=== PATIENT | male | born 1965 | race Caucasian/White ===

== ENCOUNTER 2019-05-03 20:59 | Inpatient (IN) | payer OTHER ==
[2019-05-03] MEDS ORDERED: VANCOMYCIN 1 GM/VIAL ONE (21:39)
[2019-05-03] MEDS ORDERED: NA CHLORIDE 0.9% 500 ML ONE (21:39)
[2019-05-03] MEDS ORDERED: PIPER/TAZO/NS 3.375gm 3.375 GM/100 ML BAG ONE (21:39)
[2019-05-03] MEDS ORDERED: NA CHLORIDE 0.9% 2,000 ML ONE (21:58)
[2019-05-03 22:02] LABS: Absolute Monocytes 0.8 K/uL (0.1-1.3); Absolute Neutrophil 7.3 K/uL (1.8-8.0); Basophils % 0.5 % (0-1.3); Eosinophils % 0.4 % (0-4.4); Lymphocytes % 11.1 % (15.3-44.8); MPV 12.1 fL (7.6-11.3); Monocytes % 9.1 % (3.3-12.3); RBC Red Blood Cell Count 3.96 M/uL (4.33-5.43)
[2019-05-03 22:07] LABS: Albumin 1.5 g/dL (3.4-5.0); Bilirubin Direct 0.9 mg/dL (0-0.2); Bilirubin Total 1.3 mg/dL (0.2-1.0); C-Reactive Protein 46.5 mg/L (<3.00); CKMB Creatine Kinase MB 3.2 ng/mL (0.3-3.6); Potassium 3.7 mmol/L (3.5-5.1); Protein, Total 5.7 g/dL (6.4-8.2); Troponin (Emerg Dept Use Only) 0.1 ng/mL (0.0-0.045)
[2019-05-03 22:11] LABS: Protime INR 1.44
--- NOTE | 2019-05-03 22:50 | RAD REPORT ---
EXAM DESCRIPTION: USExtremity Venous Uni Ltd05/03/2019 10:33 pm CLINICAL HISTORY: Right leg swelling COMPARISON: None. FINDINGS: Right common femoral, superficial femoral, popliteal and right posterior tibial veins are compressible and demonstrate augmentation. Doppler demonstrates good flow. IMPRESSION: No evidence of deep venous thrombosis involving the right lower extremity.
--- NOTE | 2019-05-03 23:34 | EDPHYS ---
Physician Documentation [facility] Name: Bob Santana Age: 53 yrs Sex: Male : 1965 Arrival Date: 05/03/2019 Time: 21:11 Bed 8 Private MD: ED Physician Harry Day HPI: 05/03 23:20 This 53 yrs old Male presents to ER via EMS with complaints of Leg Swelling. tw4 23:20 The patient presents with pain, that is acute, swelling. The complaints affect the tw4 right quadriceps, right knee, right norman, anterior aspect of right ankle and dorsum of right foot. Context: The problem was sustained at home, resulted from an unknown cause. Onset: The symptoms/episode began/occurred 4 day(s) ago. Modifying factors: The symptoms are alleviated by remaining still, the symptoms are aggravated by movement. Associated signs and symptoms: The patient has no apparent associated signs or symptoms. Treatment prior to arrival includes: no previous treatment. Severity of symptoms: At their worst the symptoms were moderate, in the emergency department the symptoms are unchanged. The patient has not experienced similar symptoms in the past. Historical: - Allergies: 21:38 No Known Allergies; lp1 - Home Meds: 21:38 furosemide 40 mg Oral tab 1 tab 2 times per day [Active]; carvedilol 3.125 mg oral tab lp1 1 tab 2 times per day [Active]; spironolactone 25 mg Oral tab 1 tab once daily [Active]; buspirone 10 mg Oral tab 1 tab 3 times per day [Active]; lisinopril 5 mg Oral tab 1 tab once daily [Active]; digoxin 250 mcg Oral tab 1 tab once daily [Active]; - PMHx: 21:38 Hypertension; CHF; COPD; lp1 - PSHx: 21:38 None; lp1 - Immunization history:: Adult Immunizations unknown. - Social history:: Smoking status: Patient uses tobacco products, smokes one-half pack cigarettes per day. - Ebola Screening: : No symptoms or risks identified at this time. ROS: 23:20 Constitutional: Negative for fever, chills, and weight loss, Eyes: Negative for injury, tw4 pain, redness, and discharge, Cardiovascular: Negative for chest pain, palpitations, and edema, Respiratory: Negative for shortness of breath, cough, wheezing, and pleuritic chest pain, Abdomen/GI: Negative for abdominal pain, nausea, vomiting, diarrhea, and constipation, Back: Negative for injury and pain. 23:20 Neuro: Negative for headache, weakness, numbness, tingling, and seizure, Psych: Negative for depression, anxiety, suicide ideation, homicidal ideation, and hallucinations. 23:20 MS/extremity: Positive for erythema, pain, swelling, tenderness. Exam: 23:20 Musculoskeletal/extremity: Extremities: erythema, pain, swelling, tenderness. tw4 05/04 02:28 Constitutional: This is a well developed, well nourished patient who is awake, alert, tw4 and in no acute distress. Head/Face: Normocephalic, atraumatic. Chest/axilla: Normal chest wall appearance and motion. Nontender with no deformity. No lesions are appreciated. Cardiovascular: Regular rate and rhythm with a normal S1 and S2. No gallops, murmurs, or rubs. Normal PMI, no JVD. No pulse deficits. Respiratory: Lungs have equal breath sounds bilaterally, clear to auscultation and percussion. No rales, rhonchi or wheezes noted. No increased work of breathing, no retractions or nasal flaring. Abdomen/GI: Soft, non-tender, with normal bowel sounds. No distension or tympany. No guarding or rebound. No evidence of tenderness throughout. Back: No spinal tenderness. No costovertebral tenderness. Full range of motion. Neuro: Awake and alert, GCS 15, oriented to person, place, time, and situation. Cranial nerves II-XII grossly intact. Motor strength 5/5 in all extremities. Sensory grossly intact. Cerebellar exam normal. Normal gait. Psych: Awake, alert, with orientation to person, place and time. Behavior, mood, and affect are within normal limits. Skin: cellulitis, that is severe, on the posterior aspect of right knee, right calf, right Achilles, medial aspect of right thigh, medial aspect of right knee, medial aspect of right calf, right quadriceps, right knee, right norman, anterior aspect of right ankle and dorsum of right foot. Vital Signs: 05/03 21:00 BP 70 / 52; Pulse 82; Resp 24; Temp 98.2(O); Pulse Ox 96% on R/A; Weight 99.79 kg (R); lp1 Height 5 ft. 10 in. (177.80 cm); Pain 10/10; 21:30 BP 79 / 55; Pulse 78; Resp 20; Pulse Ox 97% on R/A; aa1 22:00 BP 84 / 41; Pulse 74; Resp 20; Pulse Ox 98% on R/A; aa1 22:30 BP 95 / 64; Pulse 77; Resp 22; Pulse Ox 97% on R/A; aa1 23:29 BP 95 / 61; Pulse 74; Resp 20; Pulse Ox 100% on R/A; Pain 8/10; aa1 05/04 00:11 BP 101 / 57; Pulse 86; Resp 22; Temp 97.7; Pulse Ox 98% on R/A; mw2 01:07 BP 99 / 55; Pulse 88; Resp 20; Pulse Ox 99% on R/A; aa1 01:58 BP 98 / 61; Pulse 82; Resp 22; Pulse Ox 97% on R/A; aa1 03:00 BP 101 / 52; Pulse 90; Resp 20; Temp 99.0; Pulse Ox 98% on R/A; Pain 7/10; aa1 05/03 21:00 Body Mass Index 31.57 (99.79 kg, 177.80 cm) lp1 MDM: 05/03 21:15 Patient medically screened. tw4 23:20 Differential diagnosis: closed fracture, abrasion, DVT, NECROTIZING FASCIITIS. Data tw4 reviewed: vital signs, nurses notes. Data interpreted: monitoring engineer: rhythm is normal sinus rhythm, Pulse oximetry: Interpretation: normal. Counseling: I had a detailed discussion with the patient and/or guardian regarding: the historical points, exam findings, and any diagnostic results supporting the discharge/admit diagnosis. Physician consultation: Amy Nowak MD was contacted at 11:30, regarding admission, to the telemetry unit. patient's condition, and will see patient in inpatient room. 05/03 21:14 Order name: C-Reactive Protein; Complete Time: 22:18 tw4 05/03 22:18 Interpretation: Abnormal: C-REACTIVE PROT 46.50. tw4 05/03 21:14 Order name: Sed Rate tw4 05/03 21:14 Order name: Basic Metabolic Panel tw4 05/03 21:14 Order name: Blood Culture Adult (2) tw4 05/03 21:14 Order name: CBC with Diff tw4 05/03 22:18 Interpretation: Normal except: RBC 3.96; HGB 12.4; HCT 37.0; PLT 126; RDW 16.0; MPV tw4 12.1; LYM% 11.1; KIMBERLEE% 78.9. 05/03 21:14 Order name: Ckmb; Complete Time: 22:16 tw 05/03 22:16 Interpretation: Within normal limits: CKMB 3.2. tw4 05/03 21:14 Order name: CPK tw 05/03 21:14 Order name: Lactate; Complete Time: 22:16 tw 05/03 22:16 Interpretation: Within normal limits: LAC 1.6. tw 05/03 21:14 Order name: LFT's [facility] 05/03 21:14 Order name: Lipase; Complete Time: 22:16 [facility] 05/03 22:16 Interpretation: Within normal limits: LIP 188. [facility] 05/03 21:14 Order name: Procalcitonin; Complete Time: 22:15 [facility] 05/03 22:15 Interpretation: Abnormal: Procalcitonin 3.23. tw 05/03 21:14 Order name: Protime (+inr); Complete Time: 22:16 [facility] 05/03 22:16 Interpretation: Normal except: PT 16.7. 05/03 21:14 Order name: Ptt, Activated; Complete Time: 22:16 [facility] 05/03 22:16 Interpretation: Within normal limits: PTT 29.5. [facility] 05/03 21:14 Order name: Troponin (emerg Dept Use Only); Complete Time: 22:16 [facility] 05/03 22:16 Interpretation: Normal except: TROPED 0.10. [facility] 05/03 21:14 Order name: Urine Microscopic Only tw4 05/04 00:47 Order name: Urine Dipstick--Ancillary (enter results) ar5 05/04 01:35 Order name: Urine Culture EDMS 05/04 02:14 Order name: CBC with Automated Diff EDMS 05/04 02:14 Order name: Comprehensive Metabolic Panel EDMS 05/04 02:14 Order name: Cortisol EDMS 05/04 02:14 Order name: Magnesium EDMS 05/04 02:14 Order name: Phosphorus EDMS 05/04 02:14 Order name: Protime (+INR) EDMS 05/04 02:14 Order name: PTT, Activated Partial Thromb EDMS 05/04 02:14 Order name: Retic Count EDMS 05/04 02:14 Order name: Vitamin B12 Level EDMS 05/04 02:14 Order name: Creatine Phosphokinase EDDC 05/04 02:14 Order name: Folic Acid, (Folate) EDDC 05/04 02:14 Order name: T4 Free EDDC 05/04 02:14 Order name: Troponin I EDDC 05/03 21:14 Order name: Chest Single View XRAY tw4 05/03 21:14 Order name: Accucheck; Complete Time: 21:40 tw4 05/03 21:14 Order name: Cardiac monitoring; Complete Time: 21:34 tw4 05/03 21:14 Order name: EKG - Nurse/Tech; Complete Time: 22:24 tw4 05/03 21:14 Order name: IV Saline Lock - Large Bore; Complete Time: 22:25 tw4 05/03 21:14 Order name: Labs collected and sent; Complete Time: 21:34 tw4 05/03 21:14 Order name: O2 Per Protocol; Complete Time: 21:34 tw4 05/03 21:14 Order name: O2 Sat Monitoring; Complete Time: 21:34 tw4 05/03 21:14 Order name: Urine Dipstick-Ancillary (obtain specimen); Complete Time: 02:47 tw4 05/03 21:15 Order name: Ankle Right 2 View XRAY tw4 05/03 21:15 Order name: Tib Fib Right XRAY tw4 05/03 21:57 Order name: CT Chest For PE Angio tw4 05/03 21:57 Order name: Extremity Venous Uni Ltd US tw4 05/03 22:09 Order name: Lower Ext Wo Con W/ Mpr EDDC 05/04 02:08 Order name: CONS Pharmacy Consult EDDC 05/04 02:08 Order name: CONS Physician Consult EDDC 05/04 02:08 Order name: Consistent Carb (ADA) 1800 Leopold[address] EDMS EC:20 Rate is 78 beats/min. Rhythm is regular. QRS [place] is Normal. IA interval is normal. QRS tw4 interval is normal. QT interval is normal. No Q waves. T waves are Flattened in leads V3, V5, V6. No ST changes noted. Clinical impression: RBBB. Interpreted by me. Reviewed by me. Administered Medications: 22:00 Drug: NS 0.9% (30 ml/kg) 30 ml/kg Route: IV; Rate: bolus; Site: right upper arm; lp1 22:00 Drug: Zosyn 3.375 grams Route: IVPB; Infused Over: 60 mins; Site: right upper arm; lp1 23:00 Follow up: IV Status: Completed infusion aa1 23:17 Follow up: IV Intake: 100ml aa 23:18 Drug: NS 0.9% (30 ml/kg) 30 ml/kg Route: IV; Rate: bolus; Site: right upper arm; aa1 05/04 00:00 Follow up: IV Status: Completed infusion; IV Intake: 2000ml aa 05/03 23:18 Drug: vancoMYCIN 2 grams Route: IVPB; Rate: calculated rate; Site: right upper arm; aa1 05/04 01:18 Follow up: IV Status: Completed infusion; IV Intake: 500ml [facility] Point of Care Testing: Blood Glucose: 05/03 21:34 Blood Glucose: 204 mg/dL; lp1 Ranges: Critical Glucose Levels:Adult <50 mg/dl or >400 mg/dl <40 mg/dl or >180 mg/dl Disposition: 05/03/19 23:33 Hospitalization ordered by Amy Nowak for Inpatient Admission. Preliminary diagnosis are Cellulitis of right lower limb, Other sepsis. - Bed requested for Intensive Care Unit. - Status is Inpatient Admission. ar5 - Condition is Fair. - Problem is new. - Symptoms have improved. UTI on Admission? No Critical care time excluding procedures: 05/04 02:28 Critical care time: Bedside Care: 30 minutes, Consultation: 10 minutes. Total time: 40 tw4 minutes Signatures: Dispatcher [employer] EDMS Rachel Oquendo RN RN Riya Baca RN RN aa1 Qi Polo RN RN lp1 Harry Day MD MD tw4 Edda Gomez ar5 Corrections: (The following items were deleted from the chart) 02:12 05/03 23:33 Hospitalization Ordered by Amy Nowak MD for Inpatient Admission. alonzo Preliminary diagnosis is Cellulitis of right lower limb; Other sepsis. Bed requested for Telemetry/MedSurg (Inpatient). Status is Inpatient Admission. Condition is Fair. Problem is new. Symptoms have improved. UTI on Admission? No. tw4 05/04 02:30 05/03 23:20 Constitutional: This is a well developed, well nourished patient who is tw4 awake, alert, and in no acute distress. Head/Face: Normocephalic, atraumatic. Chest/axilla: Normal chest wall appearance and motion. Nontender with no deformity. No lesions are appreciated. Cardiovascular: Regular rate and rhythm with a normal S1 and S2. No gallops, murmurs, or rubs. Normal PMI, no JVD. No pulse deficits. Respiratory: Lungs have equal breath sounds bilaterally, clear to auscultation and percussion. No rales, rhonchi or wheezes noted. No increased work of breathing, no retractions or nasal flaring. Abdomen/GI: Soft, non-tender, with normal bowel sounds. No distension or tympany. No guarding or rebound. No evidence of tenderness throughout. Skin: Warm, dry with normal turgor. Normal color with no rashes, no lesions, and no evidence of cellulitis. Neuro: Awake and alert, GCS 15, oriented to person, place, time, and situation. Cranial nerves II-XII grossly intact. Motor strength 5/5 in all extremities. Sensory grossly intact. Cerebellar exam normal. Normal gait. tw4 05/04 03:28 02:12 05/03/2019 23:33 Hospitalization Ordered by Amy Nowak MD for Inpatient ar5 Admission. Preliminary diagnosis is Cellulitis of right lower limb; Other sepsis. Bed requested for Intensive Care Unit. Status is Inpatient Admission. Condition is Fair. Problem is new. Symptoms have improved. UTI on Admission? No. mw
--- NOTE | 2019-05-03 23:34 | ER ---
Nurse's Notes [facility] Name: Bob Santana Age: 53 yrs Sex: Male : 1965 Arrival Date: 05/03/2019 Time: 21:11 Bed 8 Private MD: Diagnosis: Cellulitis of right lower limb;Other sepsis Presentation: 05/03 21:00 Presenting complaint: EMS states: Patient was working outside 4 days ago and may have lp1 injured right leg; Pain, redness, swelling to right leg extending to upper thigh. 21:00 Method Of Arrival: EMS: [facility] lp1 21:00 Transition of care: patient was not received from another setting of care. Onset of lp1 symptoms. Risk Assessment: Do you want to hurt yourself or someone else? Patient reports no desire to harm self or others. Initial Sepsis Screen: Does the patient meet any 2 criteria? RR > 20 per min. Systolic BP < 90 mmHg. Mean Arterial Pressure (MAP) < 65. Does the patient have a suspected source of infection? Yes: Skin breakdown/wound. Care prior to arrival: None. 21:00 Acuity: KISHAN 1 lp1 Historical: - Allergies: 21:38 No Known Allergies; lp1 - Home Meds: 21:38 furosemide 40 mg Oral tab 1 tab 2 times per day [Active]; carvedilol 3.125 mg oral tab lp1 1 tab 2 times per day [Active]; spironolactone 25 mg Oral tab 1 tab once daily [Active]; buspirone 10 mg Oral tab 1 tab 3 times per day [Active]; lisinopril 5 mg Oral tab 1 tab once daily [Active]; digoxin 250 mcg Oral tab 1 tab once daily [Active]; - PMHx: 21:38 Hypertension; CHF; COPD; lp1 - PSHx: 21:38 None; lp1 - Immunization history:: Adult Immunizations unknown. - Social history:: Smoking status: Patient uses tobacco products, smokes one-half pack cigarettes per day. - Ebola Screening: : No symptoms or risks identified at this time. Screenin:38 Abuse screen: Denies threats or abuse. Denies injuries from another. Nutritional lp1 screening: No deficits noted. Tuberculosis screening: No symptoms or risk factors identified. Fall Risk Total Metzger Fall Scale indicates High Risk Score (45 or more points). Fall prevention measures have been instituted. Side Rails Up X 2 As available patient and family educated on Fall Prevention Program and Strategies. Assessment: 21:20 General: Appears in no apparent distress. uncomfortable, Behavior is calm, cooperative, aa1 appropriate for age. Pain: Complains of pain in right leg Pain began 2-3 days ago. Is continuous. Neuro: Level of Consciousness is awake, alert, obeys commands, Oriented to person, place, time, situation. Cardiovascular: Heart tones S1 S2 present Edema is 4+ to right midcalf, right ankle, right foot and right toes pitting to right midcalf, right ankle, right foot and right toes Rhythm is regular. Respiratory: Airway is patent Respiratory effort is even, unlabored, Respiratory pattern is regular, symmetrical. GI: No signs and/or symptoms were reported involving the gastrointestinal system. : No signs and/or symptoms were reported regarding the genitourinary system. EENT: No signs and/or symptoms were reported regarding the EENT system. Derm: Skin is intact, is healthy with good turgor, Skin is pink, warm \T\ dry. redness noted to RLE. Musculoskeletal: Circulation, motion, and sensation intact. Capillary refill < 3 seconds, Range of motion: limited in right knee and right ankle. 22:31 Reassessment: Patient appears in no apparent distress at this time. Patient and/or aa1 family updated on plan of care and expected duration. Pain level reassessed. Patient is alert, oriented x 3, equal unlabored respirations, skin warm/dry/pink. Pt taken to CT at this time. 23:21 Reassessment: Patient appears in no apparent distress at this time. Patient and/or aa1 family updated on plan of care and expected duration. Pain level reassessed. Patient is alert, oriented x 3, equal unlabored respirations, skin warm/dry/pink. Pt awaiting CT results. 05/04 00:11 Reassessment: Patient appears in no apparent distress at this time. Patient and/or aa1 family updated on plan of care and expected duration. Pain level reassessed. Patient is alert, oriented x 3, equal unlabored respirations, skin warm/dry/pink. Family at bedside. Awaiting bed assignment. 01:58 Reassessment: Patient appears in no apparent distress at this time. Patient and/or aa1 family updated on plan of care and expected duration. Pain level reassessed. Patient is alert, oriented x 3, equal unlabored respirations, skin warm/dry/pink. Pt still awaiting bed assignment. Vital Signs: 05/03 21:00 BP 70 / 52; Pulse 82; Resp 24; Temp 98.2(O); Pulse Ox 96% on R/A; Weight 99.79 kg (R); lp1 Height 5 ft. 10 in. (177.80 cm); Pain 10/10; 21:30 BP 79 / 55; Pulse 78; Resp 20; Pulse Ox 97% on R/A; aa1 22:00 BP 84 / 41; Pulse 74; Resp 20; Pulse Ox 98% on R/A; aa1 22:30 BP 95 / 64; Pulse 77; Resp 22; Pulse Ox 97% on R/A; aa1 23:29 BP 95 / 61; Pulse 74; Resp 20; Pulse Ox 100% on R/A; Pain 8/10; aa1 05/04 00:11 BP 101 / 57; Pulse 86; Resp 22; Temp 97.7; Pulse Ox 98% on R/A; mw2 01:07 BP 99 / 55; Pulse 88; Resp 20; Pulse Ox 99% on R/A; aa1 01:58 BP 98 / 61; Pulse 82; Resp 22; Pulse Ox 97% on R/A; aa1 03:00 BP 101 / 52; Pulse 90; Resp 20; Temp 99.0; Pulse Ox 98% on R/A; Pain 7/10; aa1 05/03 21:00 Body Mass Index 31.57 (99.79 kg, 177.80 cm) lp1 ED Course: 05/03 21:11 Patient arrived in ED. tw4 21:13 Initial lab(s) drawn, by me, sent to lab. First set of blood cultures drawn by me. aa1 Missed attempt(s): 20 gauge in right EJ. Bleeding controlled, band aid applied, catheter tip intact. 21:15 Harry Day MD is Attending Physician. tw4 21:28 Second set of blood cultures drawn. Missed attempt(s): 20 gauge in left EJ. Bleeding aa1 controlled, band aid applied, catheter tip intact. 21:33 Triage completed. lp1 21:33 Riya Baca, RN is Primary Nurse. aa1 21:33 Arm band placed on right wrist. lp1 21:38 Patient has correct armband on for positive identification. Placed in gown. Bed in low lp1 position. digital advertising analyst on. Pulse ox on. NIBP on. 21:48 Chest Single View XRAY In Process Unspecified. EDMS 21:48 Ankle Right 2 View XRAY In Process Unspecified. EDMS 21:48 Tib Fib Right XRAY In Process Unspecified. EDMS 21:55 Lab(s) recollected, by me, sent to lab. Second set of blood cultures drawn by me. fc Inserted 18 gauge 10 cm midline to right upper brachial vein on first attempt. Line with good blood return and flushes well. 22:01 Radiology exam delayed due to lab results not completed at this time. (BUN/Creatinine). vm2 22:31 Ultrasound completed. Patient tolerated well. Notified ED Physician gayle. sg3 22:35 Extremity Venous Uni Ltd US In Process Unspecified. EDMS 23:07 CT Chest For PE Angio In Process Unspecified. EDMS 23:07 Lower Ext Wo Con W/ Mpr In Process Unspecified. EDMS 23:31 Amy Nowak MD is Hospitalizing Provider. tw4 06/08 02:21 Diet: Patient given juice. Tolerated well. aa1 02:21 No provider procedures requiring assistance completed. Patient admitted, IV remains in aa1 place. Administered Medications: 05/03 22:00 Drug: NS 0.9% (30 ml/kg) 30 ml/kg Route: IV; Rate: bolus; Site: right upper arm; lp1 22:00 Drug: Zosyn 3.375 grams Route: IVPB; Infused Over: 60 mins; Site: right upper arm; lp1 23:00 Follow up: IV Status: Completed infusion aa1 23:17 Follow up: IV Intake: 100ml aa1 23:18 Drug: NS 0.9% (30 ml/kg) 30 ml/kg Route: IV; Rate: bolus; Site: right upper arm; 1 05/04 00:00 Follow up: IV Status: Completed infusion; IV Intake: 2000ml aa 05/03 23:18 Drug: vancoMYCIN 2 grams Route: IVPB; Rate: calculated rate; Site: right upper arm; aa1 05/04 01:18 Follow up: IV Status: Completed infusion; IV Intake: 500ml aa1 Point of Care Testing: Blood Glucose: 05/03 21:34 Blood Glucose: 204 mg/dL; lp1 Ranges: Intake: 23:17 IV: 100ml; Total: 100ml. aa1 05/04 00:00 IV: 2000ml; Total: 2100ml. aa1 01:18 IV: 500ml; Total: 2600ml. aa1 Outcome: 05/03 23:33 Decision to Hospitalize by Provider. 4 05/04 03:28 Patient left the ED. ar5 Signatures: Dispatcher [employer] EDMS Riya Baca RN RN aa1 Brigid Osei RN RN Qi Polo RN RN lp1 Carmelita Acevedo [facility] Dianna Magdaleno 3 Harry Day MD MD 4 Timo Monteiro mw2 Edda Gomez ar5 Corrections: (The following items were deleted from the chart) 01:04 00:11 BP 101 / 57; Pulse 86bpm; Resp 22bpm; Pulse Ox 98% RA; aa1 mw2 03:14 01:00 IV Status: Completed infusion; IV Intake: 2000ml aa1 aa1
[2019-05-04 01:29] LABS: Urine Culture Reflex Order REFLEXED; Urine RBC <5 /HPF (NONE SEEN)
[2019-05-04 01:31] LABS: Urine Bacteria 20-50 /HPF (NONE SEEN)
[2019-05-04 01:36] LABS: Urine Blood TRACE (NEG); Urine Glucose NEGATIVE (NEG); Urine Protein 1+ (NEG); Urine pH 6.5 (5.0-7.0)
[2019-05-04] MEDS ORDERED: ONDANSETRON 4 MG/2 ML VIAL IV PRN (02:02)
[2019-05-04] MEDS ORDERED: ACETAMINOPHEN 500 MG TAB PO PRN (02:02)
[2019-05-04] MEDS ORDERED: ALBUMIN HUMAN 25% 100 ML IV ONE ×2 (02:12→05:42)
[2019-05-04] MEDS: NA BICARB IV SCH ×4 (03:00→13:30)
[2019-05-04] MEDS ORDERED: Levofloxacin 750mg IV 750 MG/150 ML BAG IV SCH (03:00)
[2019-05-04] MEDS: D5 NS IV SCH ×4 (03:00→13:30)
[2019-05-04] MEDS ORDERED: D5 0.45 NS 1,000 ML IV ONE (04:36)
[2019-05-04] MEDS: FENTANYL CITR 100 MCG/2 ML IV PRN ×2 (05:56→20:05)
[2019-05-04 06:22] LABS: Absolute Lymphocytes (CBC) 1.1 K/uL (0.7-4.9); Absolute Monocytes 1.1 K/uL (0.1-1.3); Absolute Neutrophil 7.2 K/uL (1.8-8.0); Basophils % 0.4 % (0-1.3); Eosinophils % 0.9 % (0-4.4); Hematocrit 34.4 % (39.6-49.0); Lymphocytes % 11.2 % (15.3-44.8); MPV 11.2 fL (7.6-11.3); Monocytes % 11.7 % (3.3-12.3); RBC Red Blood Cell Count 3.66 M/uL (4.33-5.43)
[2019-05-04 06:24] LABS: Protime INR 1.6
[2019-05-04 07:11] LABS: Albumin 1.7 g/dL (3.4-5.0); Bilirubin Total 1.6 mg/dL (0.2-1.0); Folic Acid, (Folate) 17.1 ng/mL (3.1-17.5); Magnesium 1.9 mg/dL (1.8-2.4); Phosphorus 2.1 mg/dL (2.5-4.9); Protein, Total 5.6 g/dL (6.4-8.2); Troponin I 0.09 ng/mL (0.0-0.045)
[2019-05-04 07:19] LABS: Blood Morphology Comment NOT SEEN (NOT SEEN); Platelet Estimate ADEQ
[2019-05-04] MEDS: VANCOMYCIN 1.75 GM in NA CHLORIDE 0.9% 500 ML IVPB SCH ×2 (08:36→20:05)
--- NOTE | 2019-05-04 08:38 | RAD REPORT ---
EXAM DESCRIPTION: RAD - Ankle Right 2 View - 05/03/2019 9:54 pm CLINICAL HISTORY: Right ankle pain FINDINGS: No fracture or dislocation is seen. Marked soft tissue swelling may indicate a cellulitis. No bony destructive lesions seen
--- NOTE | 2019-05-04 08:51 | P.HP ---
Certification for Inpatient Patient admitted to: Inpatient With expected LOS: >2 Midnights Patient will require the following post-hospital care: Home Health Services Practitioner: I am a practitioner with admitting privileges, knowledge of patient current condition, hospital course, and medical plan of care. Services: Services provided to patient in accordance with Admission requirements found in Title 42 Section 412.3 of the Code of Federal Regulations Patient History Date of Service: 05/04/19 Reason for admission: Aggressive right lower extremity cellulitis with septic shock History of Present Illness: Patient is a 53-year-old gentleman who comes into the hospital with a significant cellulitis of the right lower extremity. Initially on viewing the leg there was concern for compartment syndrome. However, patient had good pulses and the foot was warm and neurovascularly intact. Patient states that the right lower extremity started swelling up when he and a partner work-in in a yd which she states had a large amount of stool that had not been picked up. He says there was a lot of dust all over and a few days after cutting the ER he noted that his right leg was inflamed. Is over the next 12 hr the whole leg seems to have gotten significantly erythematous. CT was performed which did not reveal any tissue abnormality. Patient also had a Doppler which was negative for DVT. Decision was made to admit the patient to the hospital for further evaluation. In the emergency room after assessing the patient's leg and the fact that he was still having fevers and hypotensive with a blood pressure of 80/50 and a temperature of a 101 with heart rates in the 110s an elevated white blood cell count it was decided to admit the patient to the hospital with septic shock and to treat him with aggressive IV antibiotic therapy. Allergies No Known Allergies Allergy (Unverified 05/04/19 02:56) Home Medications: Buspirone HCl [Buspar] 10 mg PO TID 05/04/19 Carvedilol 3.125 mg PO DAILY 05/04/19 Digoxin [Lanoxin] 0.25 mg PO DAILY 05/04/19 Furosemide 40 mg PO DAILY 05/04/19 Lisinopril [Prinivil] 5 mg PO DAILY 05/04/19 Spironolactone [Aldactone] 25 mg PO DAILY 05/04/19 - Past Medical/Surgical History Has patient received pneumonia vaccine in the past: Yes Diabetic: No -: HTN -: CHF -: COPD Past Surgical History: Patient denies surgical history - Family History Mother History Unknown: Yes Medical History: Other (see notes) Notes: epilepsy - Social History Smoking Status: Current every day smoker Alcohol use: No CD- Drugs: No Caffeine use: Yes Place of Residence: Home Review of Systems 10-point ROS is otherwise unremarkable Physical Examination - Vital Signs Temperature: 97.5 F Blood Pressure: 103/57 Pulse: 90 Respirations: 20 Pulse Ox (%): 99 - Physical Exam General: Alert, In no apparent distress, Oriented x3 HEENT: Atraumatic, PERRLA, Mucous membr. moist/pink, EOMI, Sclerae nonicteric Neck: Supple, 2+ carotid pulse no bruit, No LAD, Without JVD or thyroid abnormality Respiratory: Clear to auscultation bilaterally, Normal air movement Cardiovascular: Regular rate/rhythm, Normal S1 S2, No murmurs Gastrointestinal: Normal bowel sounds, Soft and benign, Non-distended, No tenderness Musculoskeletal: No clubbing, No swelling, No tenderness Integumentary: Skin breakdown, Skin lesion, Tenderness/swelling, Erythema, Warmth Neurological: Normal gait, Normal speech, Normal strength at 5/5 x4 extr, Normal tone, Sensation intact, Cranial nerves 3-12 intact, Normal affect Lymphatics: No axilla or inguinal lymphadenopathy - Studies Laboratory Data (last 24 hrs) 05/03/19 21:55: PT 16.7 H, INR 1.44, APTT 29.5 05/03/19 21:13: WBC 9.3, Hgb 12.4 L, Hct 37.0 L, Plt Count 126 L 05/03/19 21:13: Sodium 134 L, Potassium 3.7, BUN 24 H, Creatinine 1.03, Glucose 186 H, Total Bilirubin 1.3 H, AST 90 H, ALT 66, Alkaline Phosphatase 71, Lipase 188 Assessment & Plan - Problems (Diagnosis) (1) Cellulitis of leg, right Current Visit: Yes Status: Acute (2) Septic shock Current Visit: Yes Status: Acute (3) H/O: hypertension Current Visit: Yes Status: Acute (4) DM2 (diabetes mellitus, type 2) Current Visit: Yes Status: Acute - Plan Plan: 1. Continue with IV antibiotic 2. Continue with local wound care 3. Surgical consultation appreciated; neurovascular checks every 4hrs; 4. Gentle IV hydration 5. Monitor CBC 6. Strict blood sugar monitoring 7. Pain control 8. GI and DVT prophylaxis Discharge Plan: Home Plan to discharge in: Greater than 2 days - Advance Directives Does patient have a Living Will: No Does patient have a Durable POA for Healthcare: No - Code Status/Comfort Care Code Status Assessed: Yes Code Status: Full Code Critical Care: Yes Time Spent Managing PTS Care (In Minutes): 55
[2019-05-04] MEDS ORDERED: ENOXAPARIN 40 MG/0.4 ML SQ SCH (09:00)
[2019-05-04] MEDS ORDERED: CLINDAMYCIN INJ 900 MG in NA CHLORIDE 0.9% 50 ML IV SCH (09:00)
--- NOTE | 2019-05-04 09:01 | EKG ---
Test Date: 2019-05-03 Test Time: 21:42:35 [employer]: CHANTALE MEASUREMENT RESULTS: Intervals: Rate: 78 WV: 188 QRSD: 186 QT: 476 QTc: 542 Commodore: P: 48 WV: 188 QRS: -79 T: 103 INTERPRETIVE STATEMENTS: Normal sinus rhythm Possible Left atrial enlargement Right bundle branch block Left anterior fascicular block Bifascicular block Septal infarct, age undetermined T wave abnormality, consider lateral ischemia Abnormal ECG No previous ECG available for comparison Electronically Signed On 05-04-19 09:00:31 CDT by Shane Quijano
[2019-05-04] MEDS ORDERED: ALBUTEROL INHALER 60 PUFF/8 GM IH PRN (09:30)
[2019-05-04] MEDS: DOXYCYCLINE 100 MG in NA CHLORIDE 0.9% 100 ML IVPB SCH ×2 (12:23→20:05)
[2019-05-04] MEDS: BUSPIRONE HCL 5 MG TABLET PO SCH ×2 (14:00→20:06)
--- NOTE | 2019-05-04 14:31 | P.CNS ---
Date of Consult: 05/04/19 PC: This 53-year-old male presented to the emergency room with pain and swelling of his right lower leg for diagnosis and treatment. HPC: Patient had been out mowing yd. He has a history of chronic venous insufficiency with varicose lanes of bilaterally. He was working with a mower. Working on a yd had a lot of the grass clippings were blowing up on his legs. Apparently dominga. Feces in the vicinity. Shortly thereafter he notices leg was markedly red particularly on the right side. It had become swollen, and painful. PMH: States he may have had hepatitis in the past. Also states he has chronic heart failure PSHx: Negative SOC: No known allergy SYS REVIEW: States that he is usually in pretty good health O/E awake alert vital signs are stable, patient had been hypotensive earlier in the ER HEENT: Within normal limits, vonda Arce Chest: Chest movement equal bile has some red splotchy rash on both left and right-sided chest. Also has a pectus carnatun dear ABD: Soft LOCO: The patient has bilateral varicose staining. On the right-sided his leg is more swollen in size. There is a area redness that extends up to below the knee. There is also a rash that is not going up the posterior portion of his right leg. On examination there is no crepitus felt. There is no air in the tissue. But there is tenseness from chronic lymphedema ran overwhelmed lymphatics at the moment. DATA: CT scan shows lymphedema in the subcutaneous tissue, but no true fasciitis. No air seen in the subcutaneous tissue. Labs demonstrated a serum albumin of 1.7. IMPRESSION: This patient, they history of heart failure as well as chronic venous insufficiency to was lower limbs, a serum albumin of 1.7, and now cellulitis that extends up his right Arriaga. I do not believe the patient has fasciitis. An ultrasound done last night showed fluid in the subcutaneous tissue be no air levels. There was no sharp more markings or delineation on the fascia itself. PLAN: I will continue to observe the patient. We have requested transfer to a higher level of care. We did not have Infectious Disease, the patient may require emergent immediate surgery, and also if that is the case extensive postoperative wound care. In the meantime we are keeping him on aggressive IV antibiotic regime. He has adequate venous access at the moment. We will continue current therapy, ran keep an eye on this rash.
[2019-05-04] MEDS: Meropenem 1,000 MG in NA CHLORIDE 0.9% 100 ML IV SCH (17:08)
[2019-05-04] MEDS ORDERED: NA CHLORIDE 0.9% 1,000 ML IV SCH (18:00)
[2019-05-04] MEDS ORDERED: CARVEDILOL 3.125 MG TAB PO SCH (21:00)
[2019-05-04] MEDS ORDERED: FUROSEMIDE 40 MG TABLET PO SCH (21:00)
[2019-05-04] MEDS ORDERED: LORazepam 2 MG/ML VIAL IV STA (23:08)
[2019-05-05] MEDS: Meropenem 1,000 MG in NA CHLORIDE 0.9% 100 ML IV SCH (00:30)
[2019-05-05] MEDS ORDERED: ALBUMIN HUMAN 25% 100 ML IV ONE (00:30)
[2019-05-05] MEDS: FENTANYL CITR 100 MCG/2 ML IV PRN (03:37)
[2019-05-05] MEDS ORDERED: FUROSEMIDE 40 MG TABLET PO SCH (09:00)
[2019-05-05] MEDS ORDERED: LISINOPRIL 5 MG TAB PO SCH (09:00)
[2019-05-05] MEDS ORDERED: SPIRONOLACTONE 25 MG TABLET PO SCH (09:00)
[2019-05-05] MEDS ORDERED: DIGOXIN 0.25 MG TABLET PO SCH (09:00)
[2019-05-05] MEDS ORDERED: TIOTROPIUM 5 SPRAYS/INHALER IH SCH (09:00)
[2019-05-05] MEDS ORDERED: NICOTINE 14 MG/PAT TD SCH (09:00)
--- NOTE | 2019-05-05 11:51 | P.DS ---
Admission Date: 05/04/19 Discharge Date: 05/05/19 Disposition: TRANSFER TO [facility] Reason for Admission: Aggressive right lower extremity cellulitis with septic shock Consultations: General surgery Orthopedics - Problems (1) Septic shock Status: Acute (2) Cellulitis of leg, right Status: Acute (3) Knee effusion, right Status: Acute (4) Acute kidney injury Status: Acute (5) DM2 (diabetes mellitus, type 2) Status: Acute (6) H/O: hypertension Status: Acute (7) Chronic acquired lymphedema Status: Acute Brief History of Present Illness: Patient is a 53-year-old gentleman who comes into the hospital with a significant cellulitis of the right lower extremity. Initially on viewing the leg there was concern for compartment syndrome. However, patient had good pulses and the foot was warm and neurovascularly intact. Patient states that the right lower extremity started swelling up when he and a partner work-in in a yd which she states had a large amount of stool that had not been picked up. He says there was a lot of dust all over and a few days after cutting the ER he noted that his right leg was inflamed. Is over the next 12 hr the whole leg seems to have gotten significantly erythematous. CT was performed which did not reveal any tissue abnormality. Patient also had a Doppler which was negative for DVT. Decision was made to admit the patient to the hospital for further evaluation. In the emergency room after assessing the patient's leg and the fact that he was still having fevers and hypotensive with a blood pressure of 80/50 and a temperature of a 101 with heart rates in the 110s an elevated white blood cell count it was decided to admit the patient to the hospital with septic shock and to treat him with aggressive IV antibiotic therapy. Hospital Course: Overall during the hospital stay patient remained stable Patient was initially admitted to the hospital for septic shock most likely secondary to right-sided severe cellulitis of the lower extremity with concerns of necrotizing fasciitis. Patient was initially started on broad-spectrum antibiotics which included IV vancomycin clindamycin and Levaquin along with IV fluids. Patient remained hemodynamically stable initially was hypotensive with elevated temperature which did resolve after the 1st 8 hr of IV fluids and antibiotics. Patient's right lower extremity however did not show any improvement and in fact the rash was extending upwards to the groin area and to the umbilicus area along with shoulder and bilateral breast area. Rash that was extending was nonblanching giving the appearance of lymphangitis. Patient does have chronic venous stasis along with lymphedema and poor hygiene and thus there was a concern that patient cellulitis maybe secondary to necrotizing fasciitis. At that time [facility] was contacted patient was presented to them and was transferred there for further care. General surgery did evaluate the patient here in in the hospital and recommended to continue with IV antibiotics initially is general surgery did recommend the patient be transferred to higher level of care from the ER given the extent of his cellulitis and concern for necrotizing fasciitis and compartment syndrome. Patient had a CT of the leg done here in the hospital which was concerning for large knee effusion as well. Orthopedic surgeon was consulted here in the hospital. Patient was accepted at [facility] and was transferred there for further care. Vital Signs/Physical Exam: Temp Pulse Resp BP Pulse Ox 99.1 F 101 H 22 H 146/83 H 100 05/05/19 08:00 05/05/19 08:00 05/05/19 08:00 05/05/19 08:00 05/05/19 07:00 General: Alert, Mild distress Respiratory: Clear to auscultation bilaterally, Normal air movement Cardiovascular: Regular rate/rhythm, Normal S1 S2 Gastrointestinal: Normal bowel sounds, No tenderness Musculoskeletal: Swelling, Erythema, Tenderness, Warmth, Other (Right lower extremity with no improvement in the swelling increased erythema along with tenderness and warmth. With proper H discoloration along with hemorrhagic bullae noted. Patient does have and extended to the abdomen and the chest area. Redness is nonblanching.) Integumentary: No rashes Neurological: Normal speech, Normal tone, Normal affect Lymphatics: No axilla or inguinal lymphadenopathy Laboratory Data at Discharge: WBC 9.5 K/uL (4.3-10.9) 05/04/19 06:08 Hgb 11.6 g/dL (13.6-17.9) L 05/04/19 06:08 Hct 34.4 % (39.6-49.0) L 05/04/19 06:08 Plt Count 121 K/uL (152-406) L 05/04/19 06:08 PT 18.5 SECONDS (9.5-12.5) H 05/04/19 06:08 INR 1.60 05/04/19 06:08 APTT 30.9 SECONDS (24.3-36.9) 05/04/19 06:08 Sodium 136 mmol/L (136-145) 05/04/19 06:08 Potassium 4.0 mmol/L (3.5-5.1) 05/04/19 06:08 BUN 26 mg/dL (7-18) H 05/04/19 06:08 Creatinine 0.94 mg/dL (0.55-1.3) 05/04/19 06:08 Glucose 191 mg/dL (74-106) H 05/04/19 06:08 Phosphorus 2.1 mg/dL (2.5-4.9) L 05/04/19 06:08 Magnesium 1.9 mg/dL (1.8-2.4) 05/04/19 06:08 Total Bilirubin 1.6 mg/dL (0.2-1.0) H 05/04/19 06:08 AST 90 U/L (15-37) H 05/04/19 06:08 ALT 60 U/L (12-78) 05/04/19 06:08 Alkaline Phosphatase 66 U/L (45-117) 05/04/19 06:08 Troponin I 0.09 ng/mL (0.0-0.045) H 05/04/19 06:08 Lipase 188 U/L (73-393) 05/03/19 21:13 Home Medications: Albuterol Sulfate [Proair Respiclick] 90 mcg IH Q4HR 05/04/19 Buspirone HCl [Buspar] 10 mg PO TID 05/04/19 Carvedilol 3.125 mg PO BID 05/04/19 Digoxin [Lanoxin] 0.25 mg PO DAILY 05/04/19 Furosemide 40 mg PO BID 05/04/19 Lisinopril [Prinivil] 5 mg PO DAILY 05/04/19 Spironolactone [Aldactone] 25 mg PO DAILY 05/04/19 Tiotropium Pelican [Spiriva Respimat] 4 gm IH DAILY 05/04/19
--- NOTE | 2019-05-06 11:44 | RAD REPORT ---
EXAM DESCRIPTION: CT - Chest For Pe Angio - 05/04/2019 4:35 am CLINICAL HISTORY: The patient is 53 years old and is Male; fever TECHNIQUE: Axial computed tomographic angiography images of the chest with intravenous contrast usin g pulmonary embolism protocol. Sagittal and coronal reformatted images were created and reviewed. This CT exam was performed using one or more of the following dose reduction techniques: automated exposure control, adjustment of the mA and/or kV according to patient size, and/or use of iterative reconstruction technique. MIP reconstructed images were created and reviewed. COMPARISON: No relevant prior studies available. FINDINGS: ARTIFACTS: The exam is suboptimal secondary to motion artifact. PULMONARY ARTERIES: The main pulmonary arteries and proximal segmental branches opacify normally and are without filling defect. AORTA: No acute findings. No thoracic aortic aneurysm. LUNGS: Minimal dependent densities in the lung bases are present. No mass. PLEURAL SPACE: Unremarkable. No significant effusion. No pneumothorax. HEART: The heart is enlarged. There is no pericardial effusion. No evidence of RV dysfunction. BONES/JOINTS: No acute fracture. No dislocation. SOFT TISSUES: Unremarkable. LYMPH NODES: Unremarkable. No enlarged lymph nodes. LIVER: The liver is cirrhotic with a nodular contour. IMPRESSION: 1. The main pulmonary arteries and proximal segmental branches opacify normally and ar e without filling defect. However, the remainder of the vessels are inadequately evaluated secondar y to motion artifact. 2. Minimal dependent atelectasis. 3. Cardiomegaly without failure. Electronically signed by: Shanae Allen MD 05/03/2019 11:17 PM CDT Due to temporary technical issues with the PACS/Fluency reporting system, reports are being signed by the in house radiologist as a courtesy to ensure prompt reporting. The interpreting radiologist is f ully responsible for the content of the report.
--- NOTE | 2019-05-06 11:48 | RAD REPORT ---
EXAM DESCRIPTION: CT - Lower Ext Wo Con W/ Mpr - 05/04/2019 4:33 am CLINICAL HISTORY: 53 years Male, Pain and swelling Lower Ext Wo Con W/ Mpr COMPARISON: None. TECHNIQUE: 5 mm axial images of the right lower extremity were obtained without intravenous contrast . 2 mm coronal and sagittal reformatted images were obtained. This exam was performed according to our departmental dose-optimization program, which includes autom ated exposure control, adjustment of the mA and/or kV according to patient size and/or use of iterati ve reconstruction technique. FINDINGS: BONY STRUCTURES: No abnormalities. SOFT TISSUES: In the calf and foot there is severe diffuse dermal thickening and associated subcutaneous edema. No soft tissue gas is identified. In the thigh there is moderately severe dermal thickening and subcutaneous edema. There is a large joint effusion in the knee joint. There are prominent inguinal lymph nodes with the largest lymph node measuring 4.8 x 2.6 cm. IMPRESSION: 1. Findings suggestive of severe cellulitis throughout the right lower extremity.. 2. There is a large effusion within the right knee joint. 3. There are enlarged right inguinal lymph nodes. Electronically signed by: Gama Martinez MD 05/03/2019 11:39 PM CDT Due to temporary technical issues with the PACS/Fluency reporting system, reports are being signed by the in house radiologist as a courtesy to ensure prompt reporting. The interpreting radiologist is f ully responsible for the content of the report.
--- NOTE | 2019-05-06 11:51 | RAD REPORT ---
EXAM DESCRIPTION: RAD - Chest Single View - 05/03/2019 9:54 pm CLINICAL HISTORY: 53 years Male FEVER COMPARISON: None TECHNIQUE: AP view of the chest was obtained. FINDINGS: Cardiac silhouette is enlarged. Central vessels are mildly increased. Radiopaque density l eft heart possibly artifact. Small bilateral pleural effusions. Patchy airspace opacity right lung base. No abnormal airspace opac ity on left. No pneumothorax. IMPRESSION: Enlarged heart with mild congestive heart failure. Atelectatic change versus infiltrate right lung base. Electronically signed by: Debra Chakraborty MD 05/03/2019 10:16 PM CDT Due to temporary technical issues with the PACS/Fluency reporting system, reports are being signed by the in house radiologist as a courtesy to ensure prompt reporting. The interpreting radiologist is f ully responsible for the content of the report.
--- NOTE | 2019-05-06 11:52 | RAD REPORT ---
EXAM DESCRIPTION: RAD - Tib Fib Right - 05/03/2019 9:54 pm CLINICAL HISTORY: 53 years Male r/o air COMPARISON: None TECHNIQUE: Four images of the right tibia and fibula were obtained. FINDINGS: No fracture seen. Normal bony mineralization. No erosive or lytic lesions seen. No subcutaneous emphysema noted. Vascular calcification. IMPRESSION: No acute fracture or dislocation seen. No subcutaneous emphysema noted. Electronically signed by: Debra Chakraborty MD 05/03/2019 10:17 PM CDT Due to temporary technical issues with the PACS/Fluency reporting system, reports are being signed by the in house radiologist as a courtesy to ensure prompt reporting. The interpreting radiologist is f ully responsible for the content of the report.
== END 2019-05-05 08:20 | disposition short-term general hospital (02) | DRG 871 ==
LOC: ER 20:59 → ERHOLD 05-04 02:05 → 3RD-ICU 05-04 03:29
PROVIDERS: ADMIT Hospitalist; ATTEND Family Medicine
DX: A41.9 Sepsis, unspecified organism (principal); R65.21 Severe sepsis with septic shock; L03.115 Cellulitis of right lower limb; N17.9 Acute kidney failure, unspecified; I11.0 Hypertensive heart disease with heart failure; I50.9 Heart failure, unspecified; I87.2 Venous insufficiency (chronic) (peripheral); I83.93 Asymptomatic varicose veins of bilateral lower extremities; J44.9 Chronic obstructive pulmonary disease, unspecified; E11.9 Type 2 diabetes mellitus without complications; M25.461 Effusion, right knee; I89.0 Lymphedema, not elsewhere classified; F17.210 Nicotine dependence, cigarettes, uncomplicated
CPT/HCPCS: 36415; 71045; 71275; 73700; 76377; 80048; 80053; 80076; 81003; 81015; 82533; 82550; 82553; 82607; 82746; 82962; 83605; 83690; 83735; 84100; 84145; 84439; 84484; 85025; 85044; 85610; 85652; 85730; 86140; 87040; 87077; 87086; 87088; 87186; 87205; 93005; 93971; 96365; 96366; 96367; 96368; 99291; 99292; J1650; J2543; J3010; J7030; P9047; Q9967

== ENCOUNTER 2019-07-23 10:26 | Inpatient (IN) | payer OTHER ==
--- OUTSIDE RECORDS SUMMARY | 2019-07-23 10:30 | XMS REPORT | Clinical Summary ---
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 included. Potassium 3.9Comment: Specimen slightly 3.5 - 5.1 meq/L [facility] hemolyzed [facility] Specimen Blood Performing Organization Address [facility] Hospital[facility]ofl Phone Number [facility] [address] [place] [address] CENTER Transesophageal echo (05/10/2019 3:07 PM CDT) Ejection Fraction [facility] ECHO HEARTLAB [facility] Specimen Narrative Performed At Transesophageal Echocardiography Report (DARIEL) [facility]ART[facility] Demographics Patient Name MATEO [place] Date of Study 05/10/2019 TEODORA [id number] GenderMale Visit Number [id number] Unknown [id number] Room Number 6A06 Number Date of Birth1965Referring Physician Raj Allen Age53 year(s)Accelerator Systems Director Raciel Quintana, Physician MD Fellow CATRACHO [place] Procedure Type of Study DARIEL procedure:TRANSESOPHAGEAL ECHO Indications:Endocarditis. Clinical History CHF,PLEURAL EFFUSION,CELLULITIS Height: 70 inches Weight: 102.97 kg (227 lbs) BSA: 2.2 m^2 BMI: 32.57 kg/m^2 HR: 92 bpm BP: 129/62 mmHg Procedure Informed Consent DARIEL procedure notes Moderate sedation by performing MD using 4 mg IV versed and 75 mcg IV fentanyl. . Summary 1. LV is severely enlarged. LV function is severely reduced 2. RV is mildly enlarged. Depressed RV function 4. Quadricuspid AV. Modeare AI 5. Mild to moderate MR 6. Trace TR. Unable to estimate PASP 7. No evidence of thrombus in the LA/ KIRK 8. Late bubbles are seen crossing the IAS, consistent with intrapulmonary shunting 9. Grade 2 plaquing noted in the descending aorta Previous Study No prior DARIEL available for comparison Signature Findings Rhythm/BPRegular sinus rhythm during the exam. Left Ventricle Global LV systolic function severely reduced . Se verely increased left ventricle cavity size. Al l of the LV segments are severely hypokinetic . Left AtriumLA is enlarged but severity assessment is un reliable due to known DARIEL sector size limitation. No LA appendage Thrombus visualized. Right VentricleRV chamber size is mildly enlarged . Gl obal RV systolic function is depressed . Right Atrium RA size is normal. 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 Mi ld AoV cusp thickening. Th ere is moderate aortic regurgitation. Mitral Valve Mild MV leaflet thickening. Mi ld mitral annular calcification. Mi dy-kf-btekfkuc mitral regurgitation. Tricuspid ValveTV structure is normal. A trace of tricuspid regurgitation. Un able to estimate peak systolic PA pressure; in adequate TR velocity signal. Pulmonic Valve Normal PV structure and function by limited views an d Doppler. AortaAortic root size (SInus of Valsalva diameter) is no rmal . Gr juni 2 plaque (extensive intimal thickening) in th e descending thoracic aorta and aortic arch . PericardiumNo significant pericardial effusion is visualized. IVC/SVC/PA/PV/PleuralThe visualized SVC appears normal. Le ft sided pleural effusion is seen Doppler/Quantitative Measurements Mitral Valve PISA Radius: 0.53 cm MV EROA (PISA): 1.76 cm^2 MV Aaron. Peak: Procedure Note Interface, External Ris In - 05/10/2019 8:13 PM CDT Transesophageal Echocardiography Report (DARIEL) Demographics Patient Name MATEO EN[place]AND Date of Study 05/10/2019 TEODORA Gender Male Visit Number [id number] Race Unknown Room Number 6A06 Number Date of 1965 Referring Physician Raj Allen Age 53 year(s) Accelerator Systems Director Raciel Urbina Interpreting Wilton Quintana, Physician Fellow [employer] [place] Procedure Type of Study DARIEL procedure:TRANSESOPHAGEAL ECHO Indications:Endocarditis. Clinical History CHF,PLEURAL EFFUSION,CELLULITIS Height: 70 inches Weight: 102.97 kg (227 lbs) BSA: 2.2 m^2 BMI: 32.57 kg/m^2 HR: 92 bpm BP: 129/62 mmHg Procedure Informed Consent DARIEL procedure notes Moderate sedation by performing MD using 4 mg IV versed and 75 mcg IV fentanyl. . Summary 1. LV is severely enlarged. LV function is severely reduced 2. RV is mildly enlarged. Depressed RV function 4. Quadricuspid AV. Modeare AI 5. Mild to moderate MR 6. Trace TR. Unable to estimate PASP 7. No evidence of thrombus in the LA/ KIRK 8. Late bubbles are seen crossing the IAS, consistent with intrapulmonary shunting 9. Grade 2 plaquing noted in the descending aorta Previous Study No prior DARIEL available for comparison Signature Findings Rhythm/BP Regular sinus rhythm during the exam. Left Ventricle Global LV systolic function severely reduced . Severely increased left ventricle cavity size. All of the LV segments are severely hypokinetic . Left Atrium LA is enlarged but severity assessment is unreliable due to known DARIEL sector size limitation. No LA appendage Thrombus visualized. Right Ventricle RV chamber size is mildly enlarged . Global RV systolic function is depressed . Right Atrium RA size is normal. 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 Mild AoV cusp thickening. There is moderate aortic regurgitation. Mitral Valve Mild MV leaflet thickening. Mild mitral annular calcification. Lich-gi-hvnziwai mitral regurgitation. Tricuspid Valve TV structure is normal. A trace of tricuspid regurgitation. Unable to estimate peak systolic PA pressure; inadequate TR velocity signal. Pulmonic Valve Normal PV structure and function by limited views and Doppler. Aorta Aortic root size (SInus of Valsalva diameter) is normal . Grade 2 plaque (extensive intimal thickening) in the descending thoracic aorta and aortic arch . Pericardium No significant pericardial effusion is visualized. IVC/SVC/PA/PV/Pleural The visualized SVC appears normal. Left sided pleural effusion is seen Doppler/Quantitative Measurements Mitral Valve PISA Radius: 0.53 cm MV EROA (PISA): 1.76 cm^2 MV Aaron. Peak: Performing Organization Address City/State/Zipcode Phone Number [facility] ECHO [facility]ART[facility] [place] CPACS XR chest 1 view portable / bedside (05/10/2019 9:11 AM CDT)Only the most recent of2 resultswithin the time period is included. Specimen Narrative Performed At FINAL REPORT [facility] TECHNIQUE: Frontal view of the chest. INDICATION: 53-year-old man with shortness of breath. COMPARISON: Chest radiograph 05/05/2019. FINDINGS: LINES/TUBES: None. LUNGS: Decreased aeration of the lungs, which accentuate the pulmonary vasculature and cardiomediastinal silhouette. Mild linear atelectasis in the left lung base. PLEURA: Small bilateral pleural effusions versus pleural thickening. No pneumothorax. HEART AND MEDIASTINUM: The cardiomediastinal silhouette is not significant changed. Unchanged metallic structure projects over the lower thorax left of the midline. SOFT TISSUES AND BONES: Unremarkable. IMPRESSION: Small bilateral pleural effusions versus pleural thickening. Otherwise, no acute cardiopulmonary abnormalities. Signed: Roosevelt Suárez MD Report Verified Date/Time:05/10/2019 09:39:51 Reading Location: [facility] Radiology Reading Room Procedure Note Interface, External Ris In - 05/10/2019 9:42 AM CDT FINAL REPORT TECHNIQUE: Frontal view of the chest. INDICATION: 53-year-old man with shortness of breath. COMPARISON: Chest radiograph 05/05/2019. FINDINGS: LINES/TUBES: None. LUNGS: Decreased aeration of the lungs, which accentuate the pulmonary vasculature and cardiomediastinal silhouette. Mild linear atelectasis in the left lung base. PLEURA: Small bilateral pleural effusions versus pleural thickening. No pneumothorax. HEART AND MEDIASTINUM: The cardiomediastinal silhouette is not significant changed. Unchanged metallic structure projects over the lower thorax left of the midline. SOFT TISSUES AND BONES: Unremarkable. IMPRESSION: Small bilateral pleural effusions versus pleural thickening. Otherwise, no acute cardiopulmonary abnormalities. Signed: Roosevelt Suárez MD Report Verified Date/Time: 05/10/2019 09:39:51 Reading Location: [facility] Radiology Reading Room Performing Organization Address City/State/Zipcode Phone Number [facility] ECG 12 lead (05/09/2019 7:08 PM CDT) Specimen Narrative Performed At Ventricular Rate 77 BPM GE MUSE Atrial Rate 77 BPM P-R Interval 190 ms QRS Duration 182 ms Q-T Interval 534 ms QTC Calculation(Bazett) 604 ms P [place] 41 degrees R [place] -67 degrees T [place] 91 degrees Normal sinus rhythm Left atrial enlargement Left axis deviation Right bundle branch block Inferior infarct , age undetermined can't be r/o Cannot rule out Anterior infarct , age undetermined T wave abnormality, consider lateral ischemia Abnormal ECG No previous ECGs available Confirmed by MD Hardin Roberto ([id number]) on 05/14/2019 2:02:15 PM Procedure Note Interface, External Ris In - 05/14/2019 2:02 PM CDT Ventricular Rate 77 BPM Atrial Rate 77 BPM P-R Interval 190 ms QRS Duration 182 ms Q-T Interval 534 ms QTC Calculation(Bazett) 604 ms P [place] 41 degrees R [place] -67 degrees T [place] 91 degrees Normal sinus rhythm Left atrial enlargement Left axis deviation Right bundle branch block Inferior infarct , age undetermined can't be r/o Cannot rule out Anterior infarct , age undetermined T wave abnormality, consider lateral ischemia Abnormal ECG No previous ECGs available Confirmed by MD Hardin Roberto ([id number]) on 05/14/2019 2:02:15 PM Performing Organization Address City/[facility] Phone Number GE MUSE CBC (Hemogram only) (05/09/2019 4:47 AM CDT)Only the most recent of3 resultswithin the time period is included. WBC 7.2 3.5 - 10.5 K/L [facility] RBC 3.99 (L) 4.63 - 6.08 M/L [facility] Hemoglobin 12.3 (L) 13.7 - 17.5 GM/DL [facility] Hematocrit 36.9 (L) 40.1 - 51.0 % [facility] MCV 92.5 (H) 79.0 - 92.2 fL [facility] MCH 30.8 25.7 - 32.2 pg [facility] MCHC 33.3 32.3 - 36.5 GM/DL [facility] RDW 16.5 (H) 11.6 - 14.4 % [facility] Platelets 197 150 - 450 K/CU MM [facility] MPV 11.3 9.4 - 12.4 fL [facility] nRBC 0 0 - 0 /100 WBC [facility] Specimen Blood Performing Organization Address [facility]code Phone Number [address] [address] CENTER Vancomycin level, trough (05/07/2019 11:46 PM CDT)Only the most recent of2 resultswithin the time period is included. Vancomycin Tr 16.4 10.0 - 20.0 ug/mL [facility] Specimen Blood Narrative Performed At Please draw 30 minutes before 3rd dose [facility] If vancomycin trough level > 20 mcg/mL, hold next vancomycin dose, and contact MD and pharmacist. Performing Organization Address City/[facility] Phone Number [facility] [address] [place] [address] CENTER PT/aPTT (05/07/2019 4:07 AM CDT) Protime 16.2 (H) 11.9 - 14.2 seconds [facility] INR 1.4 <=5.9 [facility] PTT 32.0 22.5 - 36.0 seconds [facility] Specimen Blood Narrative Performed At Effective 04/24/2019: PT Reference Range [facility] Change New: 11.9-14.2Previous: 11.7-14.7 RECOMMENDED COUMADIN/WARFARIN INR THERAPY RANGES STANDARD DOSE: 2.0-3.0Includes: PROPHYLAXIS for venous thrombosis, systemic embolization; TREATMENT for venous thrombosis and/or pulmonary embolus. HIGH RISK: Target INR is 2.5-3.5 for patients wiht mechanical heart valves. Performing Organization Address City/State/Zipcode Phone Number [address] [address] [place] Blood Culture Panel(BioFire) (05/06/2019 11:31 AM CDT) LISTERIA MONOCYTOGENES Not detected Not detected [facility] STAPHYLOCOCCUS Detected (A) Not detected [facility] STAPHYLOCOCCUS AUREUS Detected (A) Not detected [facility] Comment: [facility] Methicillin-susceptible S. aureus (MSSA) CENTER First-line therapy: Cefazolin or Oxacillin (Oxacillin preferred if HELP DESK INTERN involvement) ID CONSULTATION REQUIRED Staphylococcus aureus DETECTED MecA NOT DETECTED Reference Range: Not Detected Streptococcus Not detected Not detected [facility] STREPTOCOCCUS AGALACTIAE Not detected Not detected [facility] (GROUP B) [facility] STREPTOCOCCUS PNEUMONIAE Not detected Not detected [facility] Streptococcus pyogenes (Group Not detected Not detected [facility] A) [facility] ACINETOBACTER BAUMANNII Not detected Not detected [facility] HAEMOPHILUS INFLUENZAE Not detected Not detected [facility] NEISSERIA MENINGITIDIS Not detected Not detected [facility] ENTEROBACTERIACEAE Not detected Not detected [facility] ENTEROBACTER CLOACOE COMPLEX Not detected Not detected [facility] KLEBSIELLA OXYTOCA Not detected Not detected [facility] KLEBSIELLA PNEUMONIAE Not detected Not detected [facility] PROTEUS Not detected Not detected [facility] SERRATIA MARCESCENS Not detected Not detected [facility] ESTEPHANIA ALBICANS Not detected Not detected [facility] ESTEPHANIA GLABRATA Not detected Not detected [facility] ESTEPHANIA KRUSEI Not detected Not detected [facility] ESTEPHANIA PARAPSILOSIS Not detected Not detected [facility] ESTEPHANIA TROPICALIS Not detected Not detected [facility] ESCHERICHIA COLI Not detected Not detected [facility] METHICILLIN-RESISTANCE GENE Not detected Not detected [facility] VANCOMYCIN-RESISTANCE GENE Not detected [facility] CARBAPENEM-RESISTANCE GENE Not detected [facility] ENTEROCOCCUS Not detected Not detected [facility] PSEUDOMONAS AERUGINOSA Not detected Not detected [facility] Specimen Blood Narrative Performed At Other bacteria and resistance markers not [facility] targeted by this PCR panel cannot be excluded; therefore clinical correlation and follow up of serology, culture results, and other molecular studies is required. The results are not intended to be used as the sole means for clinical diagnosis or patient management decisions. This sample was tested at the [facility] Molecular Diagnostics Laboratory using the wireWAX Blood Culture ID Panel. It is FDA cleared and has been verified and approved by the [facility] Molecular Diagnostics Laboratory for clinical use. This laboratory is CLIA-certified and [employer] (CAP)-accredited to perform high complexity testing. Performing Organization Address City/State/Zipcode Phone Number [facility] [address] [place] [address] [phone] [place] Rapid drug screen, urine (05/06/2019 2:30 AM CDT) Barbiturate Screen Negative Negative [facility] Benzodiazepine Screen Negative Negative [facility] Cocaine (Metab.) Screen Negative Negative [facility] Methadone Screen Negative Negative [facility] Opiate Screen Positive (A) Negative [facility] Cannabinoid Screen Negative Negative [facility] Amph/Methamph Screen Positive (A) Negative [facility] Phencyclidine Screen Negative Negative [facility] Specimen Urine Narrative Performed At DRUGCUTOFF [facility] CONC. Cocaine 300 ng/mL Uxsdljmcbni23 ng/mL Naetfusoccashj973 ng/mL Barbiturate 200 ng/mL Gcomaazkrrjmf34 ng/mL Cffwvt953 ng/mL Methadone 300 ng/mL Amphetamine/ 1000 ng/mL Methamphetamine This assay provides an unconfirmed qualitative test result for the clinical management of patients in emergency situations. Chain of custody not maintained. Some rgdr-jut-gqckpgq medications, as well as adulterants, may cause inaccurate results. Clinical correlation should be applied. A more comprehensive drug screen or confirmation of a detected drug may be performed upon request. Performing Organization Address City/State/Zipcode Phone Number [facility] [address] [place] [address] [place] ECHOCARDIOGRAM REPORT - SCAN (05/05/2019 9:21 PM CDT) Narrative Performed At XR leg / tibia and fibula 2 views right (05/05/2019 4:08 PM CDT) Specimen Narrative Performed At FINAL REPORT [facility] Right tibia and fibula. HISTORY: Evaluate for air, concerning for necrotizing fasciitis. COMPARISON STUDY: None available. FINDINGS: Four views of the right tibia and fibula demonstrate no evidence of fracture or malalignment. No evidence of osteomyelitis is seen. No definite gas is seen in the soft tissues on plain film. CT scan would be more sensitive for tiny foci of gas. Some atherosclerosis is seen adjacent to the proximal tibia. Signed: Tremayne Lundberg MD Report Verified Date/Time:05/05/2019 17:07:13 Reading Location: [facility] B1 C013X Ortho Consult Reading Room Procedure Note Interface, External Ris In - 05/05/2019 5:09 PM CDT FINAL REPORT Right tibia and fibula. HISTORY: Evaluate for air, concerning for necrotizing fasciitis. COMPARISON STUDY: None available. FINDINGS: Four views of the right tibia and fibula demonstrate no evidence of fracture or malalignment. No evidence of osteomyelitis is seen. No definite gas is seen in the soft tissues on plain film. CT scan would be more sensitive for tiny foci of gas. Some atherosclerosis is seen adjacent to the proximal tibia. Signed: Tremayne Lundberg MD Report Verified Date/Time: 05/05/2019 17:07:13 Reading Location: [facility] B1 C013X Ortho Consult Reading Room Performing Organization Address City/State/Zipcode Phone Number [facility] aPTT (05/05/2019 3:32 PM CDT) PTT 32.0 22.5 - 36.0 seconds [facility] Specimen Blood Performing Organization Address City/[facility]/Zipcode Phone Number [address] [address] CENTER Prothrombin time/INR (05/05/2019 3:32 PM CDT) Protime 17.3 (H) 11.9 - 14.2 seconds [facility] INR 1.5 <=5.9 [facility] Specimen Blood Narrative Performed At Effective 04/24/2019: PT Reference Range [facility] Change New: 11.9-14.2Previous: 11.7-14.7 RECOMMENDED COUMADIN/WARFARIN INR THERAPY RANGES STANDARD DOSE: 2.0-3.0Includes: PROPHYLAXIS for venous thrombosis, systemic embolization; TREATMENT for venous thrombosis and/or pulmonary embolus. HIGH RISK: Target INR is 2.5-3.5 for patients wiht mechanical heart valves. Performing Organization Address [facility]/Zipcode Phone Number [address] [address] [phone] [place] B-type Natriuretic Factor (BNP) (05/05/2019 3:32 PM CDT) BNP 1,891 (H) 0 - 100 pg/mL [facility] Specimen Blood Performing Organization Address [facility]/Zipcode Phone Number [address] [address] [phone] [place] Body fluid crystals (05/05/2019 2:19 PM CDT) Body Fluid Crystals No crystals seen. [facility] Pathologist: Myranda Young MD [facility] (electronic signature) [facility] Specimen Synovial Fluid Performing Organization Address [facility] Phone Number [address] [address] [place] Body fluid culture + gram stain (05/05/2019 2:19 PM CDT) Result 3+ Staphylococcus aureus (A) [facility] Gram Stain Result 4+ WBCs [facility] Gram Stain Result 1+ gram positive cocci in pairs [facility] Specimen Body Fluid Organism Antibiotic Method Susceptibility Staphylococcus aureus Clindamycin 0.25: Susceptible Staphylococcus aureus Erythromycin <=0.25: Susceptible Staphylococcus aureus Linezolid 2: Susceptible Staphylococcus aureus Oxacillin <=0.25: Susceptible Staphylococcus aureus Rifampin <=0.5: Susceptible Staphylococcus aureus Tetracycline <=1: Susceptible Staphylococcus aureus Trimethoprim + Sulfamethoxazole <=10: Susceptible Staphylococcus aureus Vancomycin 1: Susceptible Performing Organization Address [facility] Phone Number [address] [address] [place] Body fluid cell count with differential (05/05/2019 2:19 PM CDT) Appearance Cloudy (A) Clear [facility] Color Red (A) Colorless, Straw [facility] RBCs 30,000 (H) <=1 /cu mm [facility] Adjusted WBC Count 2,560 (H) <=5 /cu mm [facility] Lining Cells 0 <=1 /cu mm [facility] % Segs 94 % [facility] % Lymphs 2 % [facility] % Monos 4 % [facility] % Eos 0 % [facility] % Baso 0 % [facility] Container Body Fluid Sterile Cup [facility] Specimen Body Fluid Performing Organization Address City/State/Zipcode Phone Number [facility] [address] [place] [address] CENTER 2D Echo W/Doppler(CW/PW/Color) (05/05/2019 12:56 PM CDT) Ejection Fraction [facility] E[facility] Specimen Narrative Performed At Transthoracic Echocardiography Report (TTE) [facility] Demographics Patient Name Bg ENGLANDte of Study 05/05/2019 TEODORA [id number] GenderMale Visit Number [id number] RaceUnknown [id number] Room Number 6A12 Number Date of Birth1965 Referring Physician Jered Rey MD Age53 year(s) Accelerator Systems Director Socorro Thomas EDEN AnalystIzohina Quintana MD Physician Procedure Type of Study TTE procedure:2DECHO W DOPPLER(CW/PW/COLOR) (STAT) Indications:Shortness of breath. Clinical History Cellulitis, CHF, Pleural effusion Height: 70 inches Weight: 102.97 kg (227 lbs) BSA: 2.2 m^2 BMI: 32.57 kg/m^2 HR: 91 bpm BP: 102/59 mmHg Summary 1, LV is severely enlarged. LV function is severely reduced. LVEF is 25-29% 2. Diastology: Unable to comment due to significant MR 3. Normal RV size. Depressed RV function 4. Mild aortic valve thickening and calcification 5. Moderate to severe MR. Recommend DARIEL for further assessment 6. Trace TR. Unable to estimate PASP 7. No pericardial effusion Previous Study No prior exam available for comparison. Signature Findings Technical Quality: Good visualization Left Ventricle The left ventricle is chamber size (by vol index) is severely enlarged (male - LVED vol >100ml/m2). No rmal LV wall thickness. The following segment(s) ap pear akinetic: basal-mid inferior . The other se gments are severely hypokinetic. Global LV sy stolic function severely reduced . LVEF by Si mpson's method of disk assessment is severely re duced (25-29%) . The LVEF was measured using Si mpson's bi-plane method of disk . LV diastolic fu nction is indeterminate due to fusion E and A.. Left AtriumLA size is severely enlarged (>48 ml/m2) . Right VentricleRV chamber size is mildly enlarged . Gl obal RV systolic function is depressed Right Atrium RA cavity size is normal . Aortic Valve Mild AoV cusp calcification. Mi ld aortic regurgitation. Mitral Valve Mild MV leaflet thickening. Mi ld mitral annular calcification. Mo otzgoi-gu-bbllvm mitral regurgitation. Ec centric jet directed posterolaterally. Recommend TE E for further assessment Tricuspid ValveTrace TR. Unable to estimate peak systolic PA pr essure; inadequate TR velocity signal. Pulmonic Valve PV is not well visualized; function appears normal by Doppler visualized. AortaAortic root size (SInus of Valsalva diameter) is no rmal . PericardiumNo significant pericardial effusion is visualized. IVC/SVC/PA/PV/PleuralA left pleural effusion is noted. Pu lmonary vein flow is consistent with increased LA P . Th e estimated RA pressure by IVC dynamics 5mmHg . Chambers/Structures Left Atrium LA Volume: 195.34 mlLA Area: 42.71 cm^2 LA Vol. Index: 89 ml/m^2 Left Ventricle LVIDd: 7.51 cm LV Septum Diastolic: 0.83 cm LV PW Diastolic: 1 cm LVEDV Sampson's:383.26 ml LVESV Sampson's:306.5 ml LVEF Sampson's: 19.3 % LVEDVI: 174 ml/m^2 LVESVI: 139 ml/m^2 LVOT Diameter: 2.35 cm Right Ventricle TAPSE: 2.01 cm Aorta Ao Root S of Marcela.: 3.46 cm Doppler/Quantitative Measurements Aortic Valve Peak Velocity: 2.26 m/sMean Velocity: 1.66 m/s Peak Gradient: 20.43 mmHgMean Gradient: 12.19 mmHg AV Area (continuity): 2.69 cm^2 AV VTI: 35.11 cm AV DVI: 0.62 LVOT Peak Velocity: 1.31 m/s Peak Gradient: 6.94 mmHg Mean Velocity: 0.95 m/s Mean Gradient: 4.08 mmHg LVOT Diameter: 2.35 cmLVOT VTI: 21.78 cm LVOT Area: 4.34 cm^2LVOT SV:94.42 ml LVOT CO: 8.59 l/min LVOT CI: 3.9 l/min/m^2 Procedure Note Interface, External Ris In - 05/05/2019 3:37 PM CDT Transthoracic Echocardiography Report (TTE) Demographics Patient Name MATEO ENGLAND Date of Study 05/05/2019 TEODORA Gender Male Visit Number [id number] Race Unknown Room Number 6A12 Number Date of 1965 Referring Physician Jered Rey MD Age 53 year(s) Accelerator Systems Director Socorro Thomas RDCS General Assignment Reporter Melina Barron Interpreting Wilton Quintana MD Physician Procedure Type of Study TTE procedure:2DECHO W DOPPLER(CW/PW/COLOR) (STAT) Indications:Shortness of breath. Clinical History Cellulitis, CHF, Pleural effusion Height: 70 inches Weight: 102.97 kg (227 lbs) BSA: 2.2 m^2 BMI: 32.57 kg/m^2 HR: 91 bpm BP: 102/59 mmHg Summary 1, LV is severely enlarged. LV function is severely reduced. LVEF is 25-29% 2. Diastology: Unable to comment due to significant MR 3. Normal RV size. Depressed RV function 4. Mild aortic valve thickening and calcification 5. Moderate to severe MR. Recommend DARIEL for further assessment 6. Trace TR. Unable to estimate PASP 7. No pericardial effusion Previous Study No prior exam available for comparison. Signature Findings Technical Quality: Good visualization Left Ventricle The left ventricle is chamber size (by vol index) is severely enlarged (male - LVED vol >100ml/m2). Normal LV wall thickness. The following segment(s) appear akinetic: basal-mid inferior . The other segments are severely hypokinetic. Global LV systolic function severely reduced . LVEF by Sampson's method of disk assessment is severely reduced (25-29%) . The LVEF was measured using Sampson's bi-plane method of disk . LV diastolic function is indeterminate due to fusion E and A.. Left Atrium LA size is severely enlarged (>48 ml/m2) . Right Ventricle RV chamber size is mildly enlarged . Global RV systolic function is depressed Right Atrium RA cavity size is normal . Aortic Valve Mild AoV cusp calcification. Mild aortic regurgitation. Mitral Valve Mild MV leaflet thickening. Mild mitral annular calcification. Zxnlpkmk-mz-[id number] mitral regurgitation. Eccentric jet directed posterolaterally. Recommend DARIEL for further assessment Tricuspid Valve Trace TR. Unable to estimate peak systolic PA pressure; inadequate TR velocity signal. Pulmonic Valve PV is not well visualized; function appears normal by Doppler visualized. Aorta Aortic root size (SInus of Valsalva diameter) is normal . Pericardium No significant pericardial effusion is visualized. IVC/SVC/PA/PV/Pleural A left pleural effusion is noted. Pulmonary vein flow is consistent with increased LAP . The estimated RA pressure by IVC dynamics 5mmHg . Chambers/Structures Left Atrium LA Volume: 195.34 ml LA Area: 42.71 cm^2 LA Vol. Index: 89 ml/m^2 Left Ventricle LVIDd: 7.51 cm LV Septum Diastolic: 0.83 cm LV PW Diastolic: 1 cm LVEDV Sampson's:383.26 ml LVESV Sampson's:306.5 ml LVEF Sampson's: 19.3 % LVEDVI: 174 ml/m^2 LVESVI: 139 ml/m^2 LVOT Diameter: 2.35 cm Right Ventricle TAPSE: 2.01 cm Aorta Ao Root S of Marcela.: 3.46 cm Doppler/Quantitative Measurements Aortic Valve Peak Velocity: 2.26 m/s Mean Velocity: 1.66 m/s Peak Gradient: 20.43 mmHg Mean Gradient: 12.19 mmHg AV Area (continuity): 2.69 cm^2 AV VTI: 35.11 cm AV DVI: 0.62 LVOT Peak Velocity: 1.31 m/s Peak Gradient: 6.94 mmHg Mean Velocity: 0.95 m/s Mean Gradient: 4.08 mmHg LVOT Diameter: 2.35 cm LVOT VTI: 21.78 cm LVOT Area: 4.34 cm^2 LVOT SV:94.42 ml LVOT CO: 8.59 l/min LVOT CI: 3.9 l/min/m^2 Performing Organization Address City/State/Zipcode Phone Number [facility] [facility] XR knee 3 views right (05/05/2019 12:45 PM CDT) Specimen Narrative Performed At FINAL REPORT [facility] Right knee. HISTORY: Concern for septic arthritis. COMPARISON STUDY: None available. FINDINGS: Four views of the right knee demonstrate no evidence of fracture, malalignment or effusion. Atherosclerosis is seen. Signed: Tremayne Lundberg MD Report Verified Date/Time:05/05/2019 13:28:26 Reading Location: [facility] B1 C013X Ortho Consult Reading Room Procedure Note Interface, External Ris In - 05/05/2019 1:30 PM CDT FINAL REPORT Right knee. HISTORY: Concern for septic arthritis. COMPARISON STUDY: None available. FINDINGS: Four views of the right knee demonstrate no evidence of fracture, malalignment or effusion. Atherosclerosis is seen. Signed: Tremayne Lundberg MD Report Verified Date/Time: 05/05/2019 13:28:26 Reading Location: [facility] B1 C013X Ortho Consult Reading Room Performing Organization Address City/State/Zipcode Phone Number GE RIS after 07/22/2018 Insurance Payer Benefit Plan / Group Subscriber ID Type Phone Address MEDICARE MEDICARE A B xxxxxxxxxxx Medicare Advance Directives For more information, please contact:[address] [phone] Code Status Date Activated Date Inactivated Comments Full Code 05/10/2019 2:49 PM 05/15/2019 6:18 PM This code status was determined by: Patient Full Code 05/05/2019 10:19 AM 05/10/2019 2:49 PM This code status was determined by: Patient
--- OUTSIDE RECORDS SUMMARY | 2019-07-23 10:31 | XMS REPORT ---
:1965 [facility] [address] [place] [address] Care Team Providers Name Role Phone LUIS CURRAN Unavailable Unavailable Problems This patient has no known problems. Allergies, Adverse Reactions, Alerts This patient has no known allergies or adverse reactions. Medications This patient has no known medications. Results Test Description Test Time Test Comments Text Results Atomic Results Result Comments BLOOD CULTURE 2019-05-16 08:01:00 Test Item Value Reference Range Comments CULTURE (BEAKER) (test oidm=2546) No growth in 5 days BLOOD [id number] 08:01:00 Test Item Value Reference Range Comments CULTURE (BEAKER) (test qvrr=0184) No growth in 5 days POCT-GLUCOSE [id number] 11:43:00 Test Item Value Reference Range Comments POC-GLUCOSE METER (BEAKER) 147 mg/dL 70-110 TESTED AT [address] (test hpne=1710) [facility] [address] BLOOD [id number] 08:01:00 Test Item Value Reference Range Comments CULTURE (BEAKER) (test epfw=1227) No growth in 5 days BLOOD [id number] 08:01:00 Test Item Value Reference Range Comments CULTURE (BEAKER) (test xnls=0248) No growth in 5 days POCT-GLUCOSE [id number] 07:08:00 Test Item Value Reference Range Comments POC-GLUCOSE METER (BEAKER) 114 mg/dL 70-110 TESTED AT [address] (test epjg=9612) [facility] [address] BASIC METABOLIC [id number] 07:04:00 Test Item Value Reference Range Comments SODIUM (BEAKER) (test 134 meq/L 136-145 hctj=124) POTASSIUM (BEAKER) (test 3.9 meq/L 3.5-5.1 Specimen slightly zwrh=048) hemolyzed CHLORIDE (BEAKER) (test 105 meq/L 98-107 wrcs=208) CO2 (BEAKER) (test 23 meq/L 22-29 zjet=007) BLOOD UREA NITROGEN 13 mg/dL 7-21 (BEAKER) (test vixm=188) CREATININE (BEAKER) (test 0.84 mg/dL 0.57-1.25 Specimen slightly idxs=285) hemolyzed GLUCOSE RANDOM (BEAKER) 92 mg/dL 70-105 (test bzwh=772) CALCIUM (BEAKER) (test 7.3 mg/dL 8.4-10.2 jcve=904) EGFR (BEAKER) (test 95 mL/min/1.73 sq m ESTIMATED GFR IS NOT egnv=8001) ACCURATE CREATININE CLEARANCE IN PREDICTING GLOMERULAR FILTRATION RATE. ESTIMATED GFR IS NOT APPLICABLE FOR DIALYSIS PATIENTS. [id number] 07:03:00 Test Item Value Reference Range Comments MAGNESIUM (BEAKER) (test 1.5 mg/dL 1.6-2.6 Specimen slightly hemolyzed lcvj=117) [id number] 07:03:00 Test Item Value Reference Range Comments PHOSPHORUS (BEAKER) (test 3.2 mg/dL 2.3-4.7 Specimen slightly hemolyzed hbcw=822) HEPATIC FUNCTION [id number] 07:03:00 Test Item Value Reference Range Comments TOTAL PROTEIN (BEAKER) (test 6.6 gm/dL 6.0-8.3 Specimen slightly hemolyzed ktsh=702) ALBUMIN (BEAKER) (test 2.0 g/dL 3.5-5.0 Specimen slightly hemolyzed mymp=8253) BILIRUBIN TOTAL (BEAKER) (test 1.7 mg/dL 0.2-1.2 Specimen slightly hemolyzed styo=301) BILIRUBIN DIRECT (BEAKER) (test 1.0 mg/dL 0.1-0.5 Specimen slightly hemolyzed remg=721) ALKALINE PHOSPHATASE (BEAKER) 61 U/L 40-150 (test paec=677) AST (SGOT) (BEAKER) (test 64 U/L 5-34 Specimen slightly hemolyzed ohtz=917) ALT (SGPT) (BEAKER) (test 36 U/L 6-55 Specimen slightly hemolyzed itbl=011) CBC W/PLT COUNT & AUTO [id number] 06:32:00 Test Item Value Reference Range Comments WHITE BLOOD CELL COUNT (BEAKER) (test swcr=166) 9.3 K/ L 3.5-10.5 RED BLOOD CELL COUNT (BEAKER) (test huum=477) 3.55 M/ L 4.63-6.08 HEMOGLOBIN (BEAKER) (test qmsq=087) 10.8 GM/DL 13.7-17.5 HEMATOCRIT (BEAKER) (test cowi=097) 32.0 % 40.1-51.0 MEAN CORPUSCULAR VOLUME (BEAKER) (test jtlr=270) 90.1 fL 79.0-92.2 MEAN CORPUSCULAR HEMOGLOBIN (BEAKER) (test 30.4 pg 25.7-32.2 jdya=531) MEAN CORPUSCULAR HEMOGLOBIN CONC (BEAKER) (test 33.8 GM/DL 32.3-36.5 qnjv=515) RED CELL DISTRIBUTION WIDTH (BEAKER) (test 17.0 % 11.6-14.4 gasq=944) PLATELET COUNT (BEAKER) (test kiut=942) 189 K/CU MM 150-450 MEAN PLATELET VOLUME (BEAKER) (test srvi=436) 11.9 fL 9.4-12.4 NUCLEATED RED BLOOD CELLS (BEAKER) (test 0 /100 WBC 0-0 hvtu=238) NEUTROPHILS RELATIVE PERCENT (BEAKER) (test 49 % tgsa=096) LYMPHOCYTES RELATIVE PERCENT (BEAKER) (test 38 % flla=769) MONOCYTES RELATIVE PERCENT (BEAKER) (test 10 % ozbj=174) EOSINOPHILS RELATIVE PERCENT (BEAKER) (test 2 % tfyy=809) BASOPHILS RELATIVE PERCENT (BEAKER) (test 1 % hrbw=570) NEUTROPHILS ABSOLUTE COUNT (BEAKER) (test 4.51 K/ L 1.78-5.38 zmnc=356) LYMPHOCYTES ABSOLUTE COUNT (BEAKER) (test 3.51 K/ L 1.32-3.57 ggty=099) MONOCYTES ABSOLUTE COUNT (BEAKER) (test 0.94 K/ L 0.30-0.82 hvkb=419) EOSINOPHILS ABSOLUTE COUNT (BEAKER) (test 0.20 K/ L 0.04-0.54 iqxz=516) BASOPHILS ABSOLUTE COUNT (BEAKER) (test 0.07 K/ L 0.01-0.08 akmz=479) IMMATURE GRANULOCYTES-RELATIVE PERCENT (BEAKER) 0 % 0-1 (test qwvq=2941) POCT-GLUCOSE [id number] 21:46:00 Test Item Value Reference Range Comments POC-GLUCOSE METER (BEAKER) 149 mg/dL 70-110 TESTED AT [address] (test hsuy=6089) [place] [address] BLOOD [id number] 20:01:00 Test Item Value Reference Range Comments CULTURE (BEAKER) (test emzp=7798) No growth in 5 days POCT-GLUCOSE [id number] 17:42:00 Test Item Value Reference Range Comments POC-GLUCOSE METER (BEAKER) 133 mg/dL 70-110 TESTED AT [address] (test xcai=4452) [place] [address] POCT-GLUCOSE [id number] 12:10:00 Test Item Value Reference Range Comments POC-GLUCOSE METER (BEAKER) 198 mg/dL 70-110 TESTED AT [address] (test izsh=5059) [place] [address] [id number] 09:20:00 Test Item Value Reference Range Comments PHOSPHORUS (BEAKER) (test oryc=302) 3.3 mg/dL 2.3-4.7 [id number] 09:20:00 Test Item Value Reference Range Comments MAGNESIUM (BEAKER) (test wfra=466) 1.6 mg/dL 1.6-2.6 BASIC METABOLIC [id number] 09:20:00 Test Item Value Reference Range Comments SODIUM (BEAKER) (test 136 meq/L 136-145 nquf=219) POTASSIUM (BEAKER) (test 4.1 meq/L 3.5-5.1 cltp=244) CHLORIDE (BEAKER) (test 101 meq/L 98-107 dhur=950) CO2 (BEAKER) (test 29 meq/L 22-29 frut=926) BLOOD UREA NITROGEN 13 mg/dL 7-21 (BEAKER) (test jjlj=222) CREATININE (BEAKER) (test 0.83 mg/dL 0.57-1.25 zeqv=179) GLUCOSE RANDOM (BEAKER) 130 mg/dL 70-105 (test rcva=220) CALCIUM (BEAKER) (test 8.3 mg/dL 8.4-10.2 suwp=503) EGFR (BEAKER) (test 96 mL/min/1.73 sq m ESTIMATED GFR IS NOT wvzy=4938) ACCURATE CREATININE CLEARANCE IN PREDICTING GLOMERULAR FILTRATION RATE. ESTIMATED GFR IS NOT APPLICABLE FOR DIALYSIS PATIENTS. HEPATIC FUNCTION [id number] 09:20:00 Test Item Value Reference Range Comments TOTAL PROTEIN (BEAKER) (test dncr=220) 7.1 gm/dL 6.0-8.3 ALBUMIN (BEAKER) (test vwkw=3369) 2.2 g/dL 3.5-5.0 BILIRUBIN TOTAL (BEAKER) (test zxvc=215) 2.1 mg/dL 0.2-1.2 BILIRUBIN DIRECT (BEAKER) (test ynzp=513) 1.5 mg/dL 0.1-0.5 ALKALINE PHOSPHATASE (BEAKER) (test pqlo=763) 72 U/L 40-150 AST (SGOT) (BEAKER) (test lxaf=449) 81 U/L 5-34 ALT (SGPT) (BEAKER) (test tyno=298) 48 U/L 6-55 CBC W/PLT COUNT & AUTO [id number] 08:57:00 Test Item Value Reference Range Comments WHITE BLOOD CELL COUNT (BEAKER) (test wmmr=138) 9.3 K/ L 3.5-10.5 RED BLOOD CELL COUNT (BEAKER) (test rqyd=692) 3.46 M/ L 4.63-6.08 HEMOGLOBIN (BEAKER) (test anps=753) 10.9 GM/DL 13.7-17.5 HEMATOCRIT (BEAKER) (test qggr=283) 31.7 % 40.1-51.0 MEAN CORPUSCULAR VOLUME (BEAKER) (test mvol=369) 91.6 fL 79.0-92.2 MEAN CORPUSCULAR HEMOGLOBIN (BEAKER) (test 31.5 pg 25.7-32.2 irks=956) MEAN CORPUSCULAR HEMOGLOBIN CONC (BEAKER) (test 34.4 GM/DL 32.3-36.5 ftrf=722) RED CELL DISTRIBUTION WIDTH (BEAKER) (test 17.0 % 11.6-14.4 gqme=936) PLATELET COUNT (BEAKER) (test lzfg=924) 178 K/CU MM 150-450 MEAN PLATELET VOLUME (BEAKER) (test dhlq=461) 12.2 fL 9.4-12.4 NUCLEATED RED BLOOD CELLS (BEAKER) (test 0 /100 WBC 0-0 jkoz=729) NEUTROPHILS RELATIVE PERCENT (BEAKER) (test 57 % vrgh=193) LYMPHOCYTES RELATIVE PERCENT (BEAKER) (test 31 % lymz=415) MONOCYTES RELATIVE PERCENT (BEAKER) (test 9 % rrgr=213) EOSINOPHILS RELATIVE PERCENT (BEAKER) (test 2 % teap=076) BASOPHILS RELATIVE PERCENT (BEAKER) (test 1 % wfko=713) NEUTROPHILS ABSOLUTE COUNT (BEAKER) (test 5.31 K/ L 1.78-5.38 vzpu=500) LYMPHOCYTES ABSOLUTE COUNT (BEAKER) (test 2.88 K/ L 1.32-3.57 ppkn=228) MONOCYTES ABSOLUTE COUNT (BEAKER) (test 0.84 K/ L 0.30-0.82 dspx=469) EOSINOPHILS ABSOLUTE COUNT (BEAKER) (test 0.18 K/ L 0.04-0.54 bwem=660) BASOPHILS ABSOLUTE COUNT (BEAKER) (test 0.05 K/ L 0.01-0.08 ymic=923) IMMATURE GRANULOCYTES-RELATIVE PERCENT (BEAKER) 0 % 0-1 (test mtln=1530) POCT-GLUCOSE [id number] 08:54:00 Test Item Value Reference Range Comments POC-GLUCOSE METER (BEAKER) 180 mg/dL 70-110 TESTED AT [address] (test lorz=3894) [place] [address] BLOOD [id number] 08:01:00 Test Item Value Reference Range Comments CULTURE (BEAKER) (test iljv=4483) No growth in 5 days BLOOD [id number] 02:01:00 Test Item Value Reference Range Comments CULTURE (BEAKER) (test ayim=3938) No growth in 5 days POCT-GLUCOSE [id number] 21:41:00 Test Item Value Reference Range Comments POC-GLUCOSE METER (BEAKER) 196 mg/dL 70-110 TESTED AT [address] (test vgny=9111) [place] [address] POCT-GLUCOSE [id number] 18:08:00 Test Item Value Reference Range Comments POC-GLUCOSE METER (BEAKER) 200 mg/dL 70-110 TESTED AT [address] (test yyco=6887) [place] [address] POCT-GLUCOSE [id number] 12:44:00 Test Item Value Reference Range Comments POC-GLUCOSE METER (BEAKER) 149 mg/dL 70-110 TESTED AT [address] (test jyyp=2396) [place] [id number] POCT-GLUCOSE [id number] 09:15:00 Test Item Value Reference Range Comments POC-GLUCOSE METER (BEAKER) 253 mg/dL 70-110 TESTED AT [address] (test ngic=6465) [place] [address] [id number] 06:02:00 Test Item Value Reference Range Comments PHOSPHORUS (BEAKER) (test dfje=242) 3.1 mg/dL 2.3-4.7 [id number] 06:02:00 Test Item Value Reference Range Comments MAGNESIUM (BEAKER) (test etzj=379) 1.3 mg/dL 1.6-2.6 HEPATIC FUNCTION [id number] 06:02:00 Test Item Value Reference Range Comments TOTAL PROTEIN (BEAKER) (test abvw=129) 6.4 gm/dL 6.0-8.3 ALBUMIN (BEAKER) (test vffo=9799) 2.1 g/dL 3.5-5.0 BILIRUBIN TOTAL (BEAKER) (test wzwn=046) 1.9 mg/dL 0.2-1.2 BILIRUBIN DIRECT (BEAKER) (test mpge=881) 1.3 mg/dL 0.1-0.5 ALKALINE PHOSPHATASE (BEAKER) (test lzms=064) 89 U/L 40-150 AST (SGOT) (BEAKER) (test zgij=976) 72 U/L 5-34 ALT (SGPT) (BEAKER) (test kblq=042) 49 U/L 6-55 POCT-GLUCOSE [id number] 22:05:00 Test Item Value Reference Range Comments POC-GLUCOSE METER (BEAKER) 206 mg/dL 70-110 TESTED AT [address] (test aaby=4957) [place] [id number] POCT-GLUCOSE [id number] 12:29:00 Test Item Value Reference Range Comments POC-GLUCOSE METER (BEAKER) 252 mg/dL 70-110 TESTED AT [address] (test lbzx=5419) [place] [address] BASIC METABOLIC [id number] 10:57:00 Test Item Value Reference Range Comments SODIUM (BEAKER) (test 137 meq/L 136-145 busd=825) POTASSIUM (BEAKER) (test 4.6 meq/L 3.5-5.1 Specimen slightly usyq=916) hemolyzed CHLORIDE (BEAKER) (test 102 meq/L 98-107 axke=629) CO2 (BEAKER) (test 27 meq/L 22-29 mvwg=214) BLOOD UREA NITROGEN 14 mg/dL 7-21 (BEAKER) (test nxik=545) CREATININE (BEAKER) (test 0.87 mg/dL 0.57-1.25 Specimen slightly pkvs=022) hemolyzed GLUCOSE RANDOM (BEAKER) 176 mg/dL 70-105 (test gdlz=102) CALCIUM (BEAKER) (test 7.7 mg/dL 8.4-10.2 ewqj=418) EGFR (BEAKER) (test 91 mL/min/1.73 sq m ESTIMATED GFR IS NOT xugn=6463) ACCURATE CREATININE CLEARANCE IN PREDICTING GLOMERULAR FILTRATION RATE. ESTIMATED GFR IS NOT APPLICABLE FOR DIALYSIS PATIENTS. VANCOMYCIN LEVEL, [id number] 10:56:00 Test Item Value Reference Range Comments VANCOMYCIN RANDOM (BEAKER) (test htyj=732) < ug/mL Reference Range: No NormalsAMIKACIN LEVEL, [id number] 10:56:00 Test Item Value Reference Range Comments AMIKACIN, RANDOM (BEAKER) (test upyt=5471) < ug/mL No Normals Reference Range-No NormalsTherapeutic Range (ug/mL)Peak: 25.0-35.0 Trough: 4.0-8.0Toxic: >[id number] 10:55:00 Test Item Value Reference Range Comments MAGNESIUM (BEAKER) (test 2.0 mg/dL 1.6-2.6 Specimen moderately hemolyzed smzh=394) [id number] 10:55:00 Test Item Value Reference Range Comments PHOSPHORUS (BEAKER) (test 3.2 mg/dL 2.3-4.7 Specimen moderately hemolyzed tnoi=629) HEPATIC FUNCTION [id number] 10:55:00 Test Item Value Reference Range Comments TOTAL PROTEIN (BEAKER) (test 6.8 gm/dL 6.0-8.3 Specimen moderately hemolyzed vtcd=757) ALBUMIN (BEAKER) (test 2.1 g/dL 3.5-5.0 Specimen moderately hemolyzed hsli=8936) BILIRUBIN TOTAL (BEAKER) (test 1.8 mg/dL 0.2-1.2 Specimen moderately hemolyzed bdel=047) BILIRUBIN DIRECT (BEAKER) 1.0 mg/dL 0.1-0.5 Specimen moderately hemolyzed (test ugql=674) ALKALINE PHOSPHATASE (BEAKER) 68 U/L 40-150 (test qncb=287) AST (SGOT) (BEAKER) (test 123 U/L 5-34 Specimen moderately hemolyzed ewbf=973) ALT (SGPT) (BEAKER) (test 61 U/L 6-55 Specimen moderately xuwi=120) hemolyzed C-REACTIVE [id number] 10:55:00 Test Item Value Reference Range Comments C-REACTIVE PROTEIN (BEAKER) (test aflb=155) 2.04 mg/dL 0.00-0.50 CBC W/PLT COUNT & AUTO [id number] 10:35:00 Test Item Value Reference Range Comments WHITE BLOOD CELL COUNT (BEAKER) (test tovv=926) 8.1 K/ L 3.5-10.5 RED BLOOD CELL COUNT (BEAKER) (test zyiv=022) 4.08 M/ L 4.63-6.08 HEMOGLOBIN (BEAKER) (test krtu=025) 12.7 GM/DL 13.7-17.5 HEMATOCRIT (BEAKER) (test zoxk=795) 37.7 % 40.1-51.0 MEAN CORPUSCULAR VOLUME (BEAKER) (test erej=267) 92.4 fL 79.0-92.2 MEAN CORPUSCULAR HEMOGLOBIN (BEAKER) (test 31.1 pg 25.7-32.2 ykja=069) MEAN CORPUSCULAR HEMOGLOBIN CONC (BEAKER) (test 33.7 GM/DL 32.3-36.5 rwfy=123) RED CELL DISTRIBUTION WIDTH (BEAKER) (test 17.2 % 11.6-14.4 htwa=943) PLATELET COUNT (BEAKER) (test ujsy=756) 172 K/CU MM 150-450 MEAN PLATELET VOLUME (BEAKER) (test hdvu=787) 11.7 fL 9.4-12.4 NUCLEATED RED BLOOD CELLS (BEAKER) (test 0 /100 WBC 0-0 jdby=324) NEUTROPHILS RELATIVE PERCENT (BEAKER) (test 57 % vwtp=672) LYMPHOCYTES RELATIVE PERCENT (BEAKER) (test 31 % huin=271) MONOCYTES RELATIVE PERCENT (BEAKER) (test 9 % bgqe=832) EOSINOPHILS RELATIVE PERCENT (BEAKER) (test 2 % yxbh=863) BASOPHILS RELATIVE PERCENT (BEAKER) (test 1 % lkhl=943) NEUTROPHILS ABSOLUTE COUNT (BEAKER) (test 4.63 K/ L 1.78-5.38 vtfl=111) LYMPHOCYTES ABSOLUTE COUNT (BEAKER) (test 2.48 K/ L 1.32-3.57 unvu=004) MONOCYTES ABSOLUTE COUNT (BEAKER) (test 0.74 K/ L 0.30-0.82 hgpe=359) EOSINOPHILS ABSOLUTE COUNT (BEAKER) (test 0.18 K/ L 0.04-0.54 rfbi=766) BASOPHILS ABSOLUTE COUNT (BEAKER) (test 0.04 K/ L 0.01-0.08 qfxt=401) IMMATURE GRANULOCYTES-RELATIVE PERCENT (BEAKER) 0 % 0-1 (test zlvg=4261) POCT-GLUCOSE [id number] 07:28:00 Test Item Value Reference Range Comments POC-GLUCOSE METER (BEAKER) 129 mg/dL 70-110 TESTED AT [address] (test kqqq=8523) [place] [id number] POCT-GLUCOSE [id number] 21:54:00 Test Item Value Reference Range Comments POC-GLUCOSE METER (BEAKER) 194 mg/dL 70-110 TESTED AT [address] (test dlxj=0534) [facility] [address] POCT-GLUCOSE [id number] 18:07:00 Test Item Value Reference Range Comments POC-GLUCOSE METER (BEAKER) 140 mg/dL 70-110 TESTED AT [address] (test pxkn=0715) [place] [id number] POCT-GLUCOSE [id number] 11:33:00 Test Item Value Reference Range Comments POC-GLUCOSE METER (BEAKER) 202 mg/dL 70-110 TESTED AT [address] (test bglt=1179) [place] [address] POCT-GLUCOSE [id number] 07:33:00 Test Item Value Reference Range Comments POC-GLUCOSE METER (BEAKER) 183 mg/dL 70-110 TESTED AT [facility] [address] (test rhtt=5751) [facility] [address] BLOOD [id number] 05:54:00 Test Item Value Reference Range Comments CULTURE (BEAKER) (test STAPHYLOCOCCUS AUREUS From Anaerobic Bottle riep=7724) Only Staphylococcus aureus Clindamycin (test code=10) Erythromycin (test code=4) Linezolid (test code=40) Oxacillin (test code=14) Rifampin (test code=43) Tetracycline (test code=2) Trimethoprim + Sulfamethoxazole (test code=47) Vancomycin (test code=13) GRAM STAIN RESULT From anaerobic bottle (BEAKER) (test wkzc=0611) only: gram positive cocci in clusters BASIC METABOLIC [id number] 05:24:00 Test Item Value Reference Range Comments SODIUM (BEAKER) (test 134 meq/L 136-145 lhat=110) POTASSIUM (BEAKER) (test 3.5 meq/L 3.5-5.1 epnh=647) CHLORIDE (BEAKER) (test 100 meq/L 98-107 mjat=369) CO2 (BEAKER) (test 29 meq/L 22-29 wlsz=190) BLOOD UREA NITROGEN 13 mg/dL 7-21 (BEAKER) (test vswg=926) CREATININE (BEAKER) (test 0.82 mg/dL 0.57-1.25 uwhc=208) GLUCOSE RANDOM (BEAKER) 191 mg/dL 70-105 (test adwy=852) CALCIUM (BEAKER) (test 7.3 mg/dL 8.4-10.2 oggc=767) EGFR (BEAKER) (test 98 mL/min/1.73 sq m ESTIMATED GFR IS NOT tomy=2305) ACCURATE CREATININE CLEARANCE IN PREDICTING GLOMERULAR FILTRATION RATE. ESTIMATED GFR IS NOT APPLICABLE FOR DIALYSIS PATIENTS. HEPATIC FUNCTION [id number] 05:22:00 Test Item Value Reference Range Comments TOTAL PROTEIN (BEAKER) (test ucjl=691) 5.7 gm/dL 6.0-8.3 ALBUMIN (BEAKER) (test vjxl=2693) 2.0 g/dL 3.5-5.0 BILIRUBIN TOTAL (BEAKER) (test epjy=789) 1.9 mg/dL 0.2-1.2 BILIRUBIN DIRECT (BEAKER) (test odqr=978) 1.3 mg/dL 0.1-0.5 ALKALINE PHOSPHATASE (BEAKER) (test fzhq=625) 74 U/L 40-150 AST (SGOT) (BEAKER) (test gjws=060) 106 U/L 5-34 ALT (SGPT) (BEAKER) (test hvxi=839) 61 U/L 6-55 CALCIUM, [id number] 04:52:00 Test Item Value Reference Range Comments CALCIUM IONIZED (BEAKER) (test fmsy=119) 1.06 mmol/L 1.12-1.27 PH, BLOOD (BEAKER) (test ltnf=9741) 7.53 [id number] 04:15:00 Test Item Value Reference Range Comments MAGNESIUM (BEAKER) (test 2.1 mg/dL 1.6-2.6 Specimen moderately hemolyzed ocjo=551) [id number] 04:15:00 Test Item Value Reference Range Comments PHOSPHORUS (BEAKER) (test 3.2 mg/dL 2.3-4.7 Specimen moderately hemolyzed vbin=931) CBC W/PLT COUNT & AUTO [id number] 03:52:00 Test Item Value Reference Range Comments WHITE BLOOD CELL COUNT (BEAKER) (test lnzw=642) 6.7 K/ L 3.5-10.5 RED BLOOD CELL COUNT (BEAKER) (test oxkr=202) 3.58 M/ L 4.63-6.08 HEMOGLOBIN (BEAKER) (test ddqo=308) 11.1 GM/DL 13.7-17.5 HEMATOCRIT (BEAKER) (test xaty=269) 32.6 % 40.1-51.0 MEAN CORPUSCULAR VOLUME (BEAKER) (test olwd=686) 91.1 fL 79.0-92.2 MEAN CORPUSCULAR HEMOGLOBIN (BEAKER) (test 31.0 pg 25.7-32.2 pcjm=744) MEAN CORPUSCULAR HEMOGLOBIN CONC (BEAKER) (test 34.0 GM/DL 32.3-36.5 qcph=983) RED CELL DISTRIBUTION WIDTH (BEAKER) (test 17.0 % 11.6-14.4 kewq=765) PLATELET COUNT (BEAKER) (test bbnm=129) 124 K/CU MM 150-450 MEAN PLATELET VOLUME (BEAKER) (test mdla=374) 12.2 fL 9.4-12.4 NUCLEATED RED BLOOD CELLS (BEAKER) (test 0 /100 WBC 0-0 nafr=156) NEUTROPHILS RELATIVE PERCENT (BEAKER) (test 54 % ozay=549) LYMPHOCYTES RELATIVE PERCENT (BEAKER) (test 33 % ljct=466) MONOCYTES RELATIVE PERCENT (BEAKER) (test 9 % dcls=435) EOSINOPHILS RELATIVE PERCENT (BEAKER) (test 3 % fgsj=811) BASOPHILS RELATIVE PERCENT (BEAKER) (test 1 % brxj=887) NEUTROPHILS ABSOLUTE COUNT (BEAKER) (test 3.60 K/ L 1.78-5.38 sqxo=681) LYMPHOCYTES ABSOLUTE COUNT (BEAKER) (test 2.24 K/ L 1.32-3.57 jhwe=216) MONOCYTES ABSOLUTE COUNT (BEAKER) (test 0.59 K/ L 0.30-0.82 ekfw=830) EOSINOPHILS ABSOLUTE COUNT (BEAKER) (test 0.18 K/ L 0.04-0.54 neiq=937) BASOPHILS ABSOLUTE COUNT (BEAKER) (test 0.04 K/ L 0.01-0.08 tagk=158) IMMATURE GRANULOCYTES-RELATIVE PERCENT (BEAKER) 1 % 0-1 (test lcia=7477) POCT-GLUCOSE [id number] 21:58:00 Test Item Value Reference Range Comments POC-GLUCOSE METER (BEAKER) 250 mg/dL 70-110 TESTED AT [address] (test wzpy=7431) [facility] [address] [id number] 20:39:00 Test Item Value Reference Range Comments MAGNESIUM (BEAKER) (test 1.6 mg/dL 1.6-2.6 Specimen slightly hemolyzed bkju=815) [id number] 20:39:00 Test Item Value Reference Range Comments POTASSIUM (BEAKER) (test 3.9 meq/L 3.5-5.1 Specimen slightly hemolyzed kuhx=942) POCT-GLUCOSE [id number] 17:48:00 Test Item Value Reference Range Comments POC-GLUCOSE METER (BEAKER) 96 mg/dL 70-110 TESTED AT [address] (test tmur=7697) [facility] [id number] POCT-GLUCOSE [id number] 11:14:00 Test Item Value Reference Range Comments POC-GLUCOSE METER (BEAKER) 317 mg/dL 70-110 Notified SKYLAR FERGUSON/TESTED AT [facility] (test iqce=6536) [address] [facility] [address] RAD, CHEST, 1 VIEW, NON [id number] 09:39:00Reason for exam:->sobShould this be performed at the bedside?->YesFINAL REPORT TECHNIQUE: Frontal view of the chest. INDICATION: 53-year-old man with shortness of breath. COMPARISON: Chest radiograph 05/05/2019. FINDINGS: LINES/ TUBES: None. LUNGS: Decreased aeration of the lungs, which accentuate the pulmonary vasculature and cardiomediastinal silhouette. Mild linear atelectasis in the left lung base. PLEURA: Small bilateral pleural effusions versus pleural thickening. No pneumothorax. HEART AND MEDIASTINUM: The cardiomediastinal silhouette is not significant changed. Unchanged metallic structure projects over the lower thorax left of the midline. SOFT TISSUES AND BONES: Unremarkable. IMPRESSION:Small bilateral pleural effusions versus pleural thickening. Otherwise, no acute cardiopulmonary abnormalities. Signed: Roosevelt Suárez MDReport Verified Date/Time: 05/10/2019 09:39:51 Reading Location: [facility] Radiology Reading Room BASIC METABOLIC [id number] 05:28:00 Test Item Value Reference Range Comments SODIUM (BEAKER) (test 133 meq/L 136-145 boow=972) POTASSIUM (BEAKER) (test 3.6 meq/L 3.5-5.1 kzic=810) CHLORIDE (BEAKER) (test 100 meq/L 98-107 syed=814) CO2 (BEAKER) (test 28 meq/L 22-29 kapd=819) BLOOD UREA NITROGEN 13 mg/dL 7-21 (BEAKER) (test znna=151) CREATININE (BEAKER) (test 0.83 mg/dL 0.57-1.25 fstf=910) GLUCOSE RANDOM (BEAKER) 190 mg/dL 70-105 (test nhhb=200) CALCIUM (BEAKER) (test 7.2 mg/dL 8.4-10.2 dpcn=624) EGFR (BEAKER) (test 96 mL/min/1.73 sq m ESTIMATED GFR IS NOT onyk=1938) ACCURATE CREATININE CLEARANCE IN PREDICTING GLOMERULAR FILTRATION RATE. ESTIMATED GFR IS NOT APPLICABLE FOR DIALYSIS PATIENTS. [id number] 05:24:00 Test Item Value Reference Range Comments PHOSPHORUS (BEAKER) (test tabr=478) 2.7 mg/dL 2.3-4.7 [id number] 05:24:00 Test Item Value Reference Range Comments MAGNESIUM (BEAKER) (test qdyp=774) 1.8 mg/dL 1.6-2.6 HEPATIC FUNCTION [id number] 05:24:00 Test Item Value Reference Range Comments TOTAL PROTEIN (BEAKER) (test fdoi=889) 5.8 gm/dL 6.0-8.3 ALBUMIN (BEAKER) (test jpre=3969) 2.0 g/dL 3.5-5.0 BILIRUBIN TOTAL (BEAKER) (test rosy=125) 1.8 mg/dL 0.2-1.2 BILIRUBIN DIRECT (BEAKER) (test fazw=949) 1.2 mg/dL 0.1-0.5 ALKALINE PHOSPHATASE (BEAKER) (test ukby=598) 74 U/L 40-150 AST (SGOT) (BEAKER) (test rwdz=415) 107 U/L 5-34 ALT (SGPT) (BEAKER) (test azyc=900) 66 U/L 6-55 CBC W/PLT COUNT & AUTO [id number] 04:46:00 Test Item Value Reference Range Comments WHITE BLOOD CELL COUNT (BEAKER) (test zgmh=637) 7.7 K/ L 3.5-10.5 RED BLOOD CELL COUNT (BEAKER) (test yhkm=119) 3.76 M/ L 4.63-6.08 HEMOGLOBIN (BEAKER) (test lpvt=971) 11.8 GM/DL 13.7-17.5 HEMATOCRIT (BEAKER) (test sfla=924) 34.8 % 40.1-51.0 MEAN CORPUSCULAR VOLUME (BEAKER) (test uzhz=692) 92.6 fL 79.0-92.2 MEAN CORPUSCULAR HEMOGLOBIN (BEAKER) (test 31.4 pg 25.7-32.2 hoof=674) MEAN CORPUSCULAR HEMOGLOBIN CONC (BEAKER) (test 33.9 GM/DL 32.3-36.5 dinm=173) RED CELL DISTRIBUTION WIDTH (BEAKER) (test 16.8 % 11.6-14.4 ppcw=915) PLATELET COUNT (BEAKER) (test nkpk=655) 187 K/CU MM 150-450 MEAN PLATELET VOLUME (BEAKER) (test mqai=807) 11.1 fL 9.4-12.4 NUCLEATED RED BLOOD CELLS (BEAKER) (test 0 /100 WBC 0-0 ohsk=961) NEUTROPHILS RELATIVE PERCENT (BEAKER) (test 65 % odvr=477) LYMPHOCYTES RELATIVE PERCENT (BEAKER) (test 24 % prub=401) MONOCYTES RELATIVE PERCENT (BEAKER) (test 7 % btii=612) EOSINOPHILS RELATIVE PERCENT (BEAKER) (test 2 % mntp=745) BASOPHILS RELATIVE PERCENT (BEAKER) (test 0 % sous=437) NEUTROPHILS ABSOLUTE COUNT (BEAKER) (test 4.98 K/ L 1.78-5.38 cfoe=065) LYMPHOCYTES ABSOLUTE COUNT (BEAKER) (test 1.87 K/ L 1.32-3.57 ikkx=266) MONOCYTES ABSOLUTE COUNT (BEAKER) (test 0.56 K/ L 0.30-0.82 mkmh=414) EOSINOPHILS ABSOLUTE COUNT (BEAKER) (test 0.16 K/ L 0.04-0.54 ozxa=783) BASOPHILS ABSOLUTE COUNT (BEAKER) (test 0.03 K/ L 0.01-0.08 tasb=634) IMMATURE GRANULOCYTES-RELATIVE PERCENT (BEAKER) 1 % 0-1 (test zxof=6151) POCT-GLUCOSE [id number] 22:14:00 Test Item Value Reference Range Comments POC-GLUCOSE METER (BEAKER) 159 mg/dL 70-110 TESTED AT [facility] [address] [facility] (test xtlz=9175) [facility] [address] [id number] 21:52:00 Test Item Value Reference Range Comments MAGNESIUM (BEAKER) (test 1.5 mg/dL 1.6-2.6 Specimen slightly hemolyzed osmf=237) [id number] 21:52:00 Test Item Value Reference Range Comments PHOSPHORUS (BEAKER) (test 2.9 mg/dL 2.3-4.7 Specimen slightly hemolyzed gqym=910) [id number] 21:52:00 Test Item Value Reference Range Comments POTASSIUM (BEAKER) (test 3.6 meq/L 3.5-5.1 Specimen slightly hemolyzed rgir=742) POCT-GLUCOSE [id number] 18:30:00 Test Item Value Reference Range Comments POC-GLUCOSE METER (BEAKER) 150 mg/dL 70-110 TESTED AT [address] (test idzt=7106) [place] [address] POCT-GLUCOSE [id number] 12:14:00 Test Item Value Reference Range Comments POC-GLUCOSE METER (BEAKER) 229 mg/dL 70-110 TESTED AT [address] (test irtg=0826) [place] [address] POCT-GLUCOSE [id number] 07:18:00 Test Item Value Reference Range Comments POC-GLUCOSE METER (BEAKER) 111 mg/dL 70-110 TESTED AT [address] (test bksj=4704) [place] [address] BASIC METABOLIC [id number] 05:43:00 Test Item Value Reference Range Comments SODIUM (BEAKER) (test 136 meq/L 136-145 dhfa=986) POTASSIUM (BEAKER) (test 3.4 meq/L 3.5-5.1 lwgd=408) CHLORIDE (BEAKER) (test 102 meq/L 98-107 remo=979) CO2 (BEAKER) (test 29 meq/L 22-29 hyfl=716) BLOOD UREA NITROGEN 15 mg/dL 7-21 (BEAKER) (test qxyz=727) CREATININE (BEAKER) (test 0.75 mg/dL 0.57-1.25 gqrx=321) GLUCOSE RANDOM (BEAKER) 139 mg/dL 70-105 (test hbzk=116) CALCIUM (BEAKER) (test 7.4 mg/dL 8.4-10.2 xbve=388) EGFR (BEAKER) (test 108 mL/min/1.73 sq m ESTIMATED GFR IS NOT mjss=0162) ACCURATE CREATININE CLEARANCE IN PREDICTING GLOMERULAR FILTRATION RATE. ESTIMATED GFR IS NOT APPLICABLE FOR DIALYSIS PATIENTS. [id number] 05:40:00 Test Item Value Reference Range Comments PHOSPHORUS (BEAKER) (test onsy=348) 3.1 mg/dL 2.3-4.7 [id number] 05:40:00 Test Item Value Reference Range Comments MAGNESIUM (BEAKER) (test bdsb=311) 1.9 mg/dL 1.6-2.6 HEPATIC FUNCTION [id number] 05:40:00 Test Item Value Reference Range Comments TOTAL PROTEIN (BEAKER) (test ntlx=272) 6.2 gm/dL 6.0-8.3 ALBUMIN (BEAKER) (test rsic=4425) 2.3 g/dL 3.5-5.0 BILIRUBIN TOTAL (BEAKER) (test puaw=008) 2.0 mg/dL 0.2-1.2 BILIRUBIN DIRECT (BEAKER) (test yynp=839) 1.3 mg/dL 0.1-0.5 ALKALINE PHOSPHATASE (BEAKER) (test olox=220) 69 U/L 40-150 AST (SGOT) (BEAKER) (test wdds=985) 116 U/L 5-34 ALT (SGPT) (BEAKER) (test oouf=533) 73 U/L 6-55 CBC (HEMOGRAM ONLY)2019-05-09 05:08:00 Test Item Value Reference Range Comments WHITE BLOOD CELL COUNT (BEAKER) (test trdu=857) 7.2 K/ L 3.5-10.5 RED BLOOD CELL COUNT (BEAKER) (test luvc=073) 3.99 M/ L 4.63-6.08 HEMOGLOBIN (BEAKER) (test wmzk=613) 12.3 GM/DL 13.7-17.5 HEMATOCRIT (BEAKER) (test pmbm=021) 36.9 % 40.1-51.0 MEAN CORPUSCULAR VOLUME (BEAKER) (test eqcu=226) 92.5 fL 79.0-92.2 MEAN CORPUSCULAR HEMOGLOBIN (BEAKER) (test 30.8 pg 25.7-32.2 ceeg=672) MEAN CORPUSCULAR HEMOGLOBIN CONC (BEAKER) (test 33.3 GM/DL 32.3-36.5 ovpj=277) RED CELL DISTRIBUTION WIDTH (BEAKER) (test 16.5 % 11.6-14.4 vkiz=873) PLATELET COUNT (BEAKER) (test dmjz=096) 197 K/CU MM 150-450 MEAN PLATELET VOLUME (BEAKER) (test edjc=449) 11.3 fL 9.4-12.4 NUCLEATED RED BLOOD CELLS (BEAKER) (test 0 /100 WBC 0-0 brpn=000) POCT-GLUCOSE [id number] 23:52:00 Test Item Value Reference Range Comments POC-GLUCOSE METER (BEAKER) 281 mg/dL 70-110 TESTED AT [address] (test fvmt=8075) [place] [address] POCT-GLUCOSE [id number] 13:10:00 Test Item Value Reference Range Comments POC-GLUCOSE METER (BEAKER) 174 mg/dL 70-110 TESTED AT [address] (test ogsl=1844) [place] [address] BODY FLUID CULTURE + GRAM [id number] 08:25:00 Test Item Value Reference Range Comments CULTURE (BEAKER) (test STAPHYLOCOCCUS AUREUS 3+ Staphylococcus usxf=0163) aureus Clindamycin (test code=10) Erythromycin (test code=4) Linezolid (test code=40) Nitrofurantoin (test code=23) Oxacillin (test code=14) Rifampin (test code=43) Tetracycline (test code=2) Trimethoprim + Sulfamethoxazole (test code=47) Vancomycin (test code=13) GRAM STAIN RESULT 4+ WBCs (BEAKER) (test msgh=3213) GRAM STAIN RESULT 1+ gram positive cocci (BEAKER) (test in pairs ntyl=976235) POCT-GLUCOSE [id number] 08:09:00 Test Item Value Reference Range Comments POC-GLUCOSE METER (BEAKER) 185 mg/dL 70-110 TESTED AT [address] (test ssui=4281) [place] [address] BASIC METABOLIC [id number] 04:58:00 Test Item Value Reference Range Comments SODIUM (BEAKER) (test 136 meq/L 136-145 owej=751) POTASSIUM (BEAKER) (test 3.5 meq/L 3.5-5.1 pbed=246) CHLORIDE (BEAKER) (test 104 meq/L 98-107 wnwt=194) CO2 (BEAKER) (test 26 meq/L 22-29 hijo=814) BLOOD UREA NITROGEN 18 mg/dL 7-21 (BEAKER) (test muvp=751) CREATININE (BEAKER) (test 0.65 mg/dL 0.57-1.25 nsab=157) GLUCOSE RANDOM (BEAKER) 117 mg/dL 70-105 (test gsfc=130) CALCIUM (BEAKER) (test 7.7 mg/dL 8.4-10.2 vvyv=926) EGFR (BEAKER) (test 128 mL/min/1.73 sq m ESTIMATED GFR IS NOT txhc=3465) ACCURATE CREATININE CLEARANCE IN PREDICTING GLOMERULAR FILTRATION RATE. ESTIMATED GFR IS NOT APPLICABLE FOR DIALYSIS PATIENTS. [id number] 04:51:00 Test Item Value Reference Range Comments PHOSPHORUS (BEAKER) (test spfw=306) 2.6 mg/dL 2.3-4.7 [id number] 04:51:00 Test Item Value Reference Range Comments MAGNESIUM (BEAKER) (test ghju=678) 1.4 mg/dL 1.6-2.6 HEPATIC FUNCTION [id number] 04:51:00 Test Item Value Reference Range Comments TOTAL PROTEIN (BEAKER) (test qqvh=471) 6.0 gm/dL 6.0-8.3 ALBUMIN (BEAKER) (test lkwz=6128) 2.3 g/dL 3.5-5.0 BILIRUBIN TOTAL (BEAKER) (test vnap=106) 1.8 mg/dL 0.2-1.2 BILIRUBIN DIRECT (BEAKER) (test ffhp=587) 1.1 mg/dL 0.1-0.5 ALKALINE PHOSPHATASE (BEAKER) (test rbzy=597) 63 U/L 40-150 AST (SGOT) (BEAKER) (test rirx=532) 183 U/L 5-34 ALT (SGPT) (BEAKER) (test dkdh=148) 95 U/L 6-55 CBC (HEMOGRAM ONLY)2019-05-08 04:22:00 Test Item Value Reference Range Comments WHITE BLOOD CELL COUNT (BEAKER) (test cuux=704) 8.5 K/ L 3.5-10.5 RED BLOOD CELL COUNT (BEAKER) (test fnfc=490) 3.80 M/ L 4.63-6.08 HEMOGLOBIN (BEAKER) (test qtfk=224) 11.9 GM/DL 13.7-17.5 HEMATOCRIT (BEAKER) (test yweq=359) 35.3 % 40.1-51.0 MEAN CORPUSCULAR VOLUME (BEAKER) (test qqos=082) 92.9 fL 79.0-92.2 MEAN CORPUSCULAR HEMOGLOBIN (BEAKER) (test 31.3 pg 25.7-32.2 grpw=342) MEAN CORPUSCULAR HEMOGLOBIN CONC (BEAKER) (test 33.7 GM/DL 32.3-36.5 qtov=621) RED CELL DISTRIBUTION WIDTH (BEAKER) (test 16.4 % 11.6-14.4 txfd=329) PLATELET COUNT (BEAKER) (test jdxl=930) 200 K/CU MM 150-450 MEAN PLATELET VOLUME (BEAKER) (test fwxo=626) 11.6 fL 9.4-12.4 NUCLEATED RED BLOOD CELLS (BEAKER) (test 0 /100 WBC 0-0 qycs=252) VANCOMYCIN LEVEL, [id number] 00:32:00 Test Item Value Reference Range Comments VANCOMYCIN TROUGH (BEAKER) (test nlyo=588) 16.4 ug/mL 10.0-20.0 Please draw 30 minutes before 3rd doseIf vancomycin trough level > 20 mcg/mL , hold next vancomycin dose, and contact MD and pharmacist.POCT-GLUCOSE [id number] 21:39:00 Test Item Value Reference Range Comments POC-GLUCOSE METER (BEAKER) 255 mg/dL 70-110 TESTED AT [address] (test hdat=4986) [facility] [address] BLOOD CULTURE IDENTIFICATION [id number] 19:30:00 Test Item Value Reference Range Comments LISTERIA MONOCYTOGENES Not detected Not detected (test bjhr=1623921) STAPHYLOCOCCUS (test Detected Not detected inwa=9384471) STAPHYLOCOCCUS AUREUS Detected Not detected Methicillin-susceptible S. (test nyfw=9663314) aureus (MSSA)First-line therapy: Cefazolin or Oxacillin (Oxacillin preferred if SENIOR UX DESIGNER involvement) ID CONSULTATION REQUIREDStaphylococcus aureus DETECTEDMecA NOT DETECTED Reference Range: Not Detected STREPTOCOCCUS (test Not detected Not detected gzzz=3362403) STREPTOCOCCUS AGALACTIAE Not detected Not detected (GROUP B) (test csje=6971715) STREPTOCOCCUS PNEUMONIAE Not detected Not detected (test vpsv=5753075) STREPTOCOCCUS PYOGENES Not detected Not detected (GROUP A) (test anmq=9978389) ACINETOBACTER BAUMANNII Not detected Not detected (test qaan=6396593) HAEMOPHILUS INFLUENZAE Not detected Not detected (test utrf=0929268) NEISSERIA MENINGITIDIS Not detected Not detected (test vuue=3443958) ENTEROBACTERIACEAE (test Not detected Not detected mmvo=9043914) ENTEROBACTER CLOACOE Not detected Not detected COMPLEX (test dlsw=2371333) KLEBSIELLA OXYTOCA (test Not detected Not detected hhuk=9183918) KLEBSIELLA PNEUMONIAE Not detected Not detected (test pavj=7427) PROTEUS (test Not detected Not detected znca=7410235) SERRATIA MARCESCENS (test Not detected Not detected bnfe=0653746) ESTEPHANIA ALBICANS (test Not detected Not detected icnk=3136843) ESTEPHANIA GLABRATA (test Not detected Not detected gzxm=3660159) ESTEPHANIA KRUSEI (test Not detected Not detected ellx=2665668) ESTEPHANIA PARAPSILOSIS (test Not detected Not detected jlsi=3088488) ESTEPHANIA TROPICALIS (test Not detected Not detected sdzb=8109739) ESCHERICHIA COLI (test Not detected Not detected saxm=4396396) METHICILLIN-RESISTANCE Not detected Not detected GENE (test wuio=3987292) VANCOMYCIN-RESISTANCE GENE Not detected (test jbaw=9158627) CARBAPENEM-RESISTANCE GENE Not detected (test cplf=7743695) ENTEROCOCCUS-BEAKER (test Not detected Not detected uvyu=4089824) PSEUDOMONAS Not detected Not detected AERUGINOSA-BEAKER (test ssjj=0231984) Other bacteria and resistance markers not targeted by this PCR panel cannot be excluded; therefore clinical correlation and follow up of serology, culture results, and other molecular studies is required. The results are not intended to be used as the sole means for clinical diagnosis or patient management decisions. This sample was tested at the [facility] using the [employer] Blood Culture ID Panel. It is FDA cleared and has been verified and approved by the [facility] for clinical use. This laboratory is CLIA-certified and College ofAmerican Pathologists (CAP)-accredited to perform high complexity testing.POCT-GLUCOSE [id number] 18:25:00 Test Item Value Reference Range Comments POC-GLUCOSE METER (BEAKER) 164 mg/dL 70-110 TESTED AT [address] (test fngs=1603) [place] [address] POCT-GLUCOSE [id number] 12:10:00 Test Item Value Reference Range Comments POC-GLUCOSE METER (BEAKER) 129 mg/dL 70-110 TESTED AT [address] (test bmmn=1879) [facility] [address] POCT-GLUCOSE [id number] 08:50:00 Test Item Value Reference Range Comments POC-GLUCOSE METER (BEAKER) 147 mg/dL 70-110 TESTED AT [facility] [address] (test kcpr=4137) [facility] [address] BASIC METABOLIC [id number] 06:39:00 Test Item Value Reference Range Comments SODIUM (BEAKER) (test 135 meq/L 136-145 ukoa=259) POTASSIUM (BEAKER) (test 4.1 meq/L 3.5-5.1 xcgo=762) CHLORIDE (BEAKER) (test 105 meq/L 98-107 qnpx=923) CO2 (BEAKER) (test 26 meq/L 22-29 gtcv=260) BLOOD UREA NITROGEN 20 mg/dL 7-21 (BEAKER) (test zdrr=822) CREATININE (BEAKER) (test 0.78 mg/dL 0.57-1.25 ljlb=703) GLUCOSE RANDOM (BEAKER) 153 mg/dL 70-105 (test zcoy=704) CALCIUM (BEAKER) (test 7.5 mg/dL 8.4-10.2 hllv=196) EGFR (BEAKER) (test 103 mL/min/1.73 sq m ESTIMATED GFR IS NOT kthg=2755) ACCURATE CREATININE CLEARANCE IN PREDICTING GLOMERULAR FILTRATION RATE. ESTIMATED GFR IS NOT APPLICABLE FOR DIALYSIS PATIENTS. [id number] 06:36:00 Test Item Value Reference Range Comments PHOSPHORUS (BEAKER) (test ksqw=477) 2.9 mg/dL 2.3-4.7 [id number] 06:36:00 Test Item Value Reference Range Comments MAGNESIUM (BEAKER) (test pmdx=672) 1.8 mg/dL 1.6-2.6 HEPATIC FUNCTION [id number] 06:36:00 Test Item Value Reference Range Comments TOTAL PROTEIN (BEAKER) (test ycxy=164) 5.7 gm/dL 6.0-8.3 ALBUMIN (BEAKER) (test puoy=4847) 2.2 g/dL 3.5-5.0 BILIRUBIN TOTAL (BEAKER) (test qqmi=087) 1.9 mg/dL 0.2-1.2 BILIRUBIN DIRECT (BEAKER) (test duxq=353) 1.2 mg/dL 0.1-0.5 ALKALINE PHOSPHATASE (BEAKER) (test mlds=226) 59 U/L 40-150 AST (SGOT) (BEAKER) (test msic=216) 195 U/L 5-34 ALT (SGPT) (BEAKER) (test wtbz=248) 87 U/L 6-55 [id number] 05:03:00 Test Item Value Reference Range Comments PROTIME (BEAKER) (test iezf=460) 16.2 seconds 11.9-14.2 INR (BEAKER) (test ogrl=874) 1.4 <=5.9 PARTIAL THROMBOPLASTIN TIME (BEAKER) (test 32.0 seconds 22.5-36.0 jral=081) Effective 04/24/2019: PT Reference Range ChangeNew: 11.9-14.2 Previous: 11.7- 14.7RECOMMENDED COUMADIN/WARFARIN INR THERAPY RANGESSTANDARD DOSE: 2.0-3.0 Includes: PROPHYLAXIS for venous thrombosis, systemic embolization; TREATMENT for venous thrombosis and/or pulmonary embolus.HIGH RISK: Target INR is2.5-3.5 for patients wiht mechanical heart valves.CBC (HEMOGRAM ONLY)2019-05-07 04:58:00 Test Item Value Reference Range Comments WHITE BLOOD CELL COUNT (BEAKER) (test qobl=440) 9.5 K/ L 3.5-10.5 RED BLOOD CELL COUNT (BEAKER) (test hjla=867) 3.74 M/ L 4.63-6.08 HEMOGLOBIN (BEAKER) (test zzqn=882) 11.7 GM/DL 13.7-17.5 HEMATOCRIT (BEAKER) (test bjao=865) 35.1 % 40.1-51.0 MEAN CORPUSCULAR VOLUME (BEAKER) (test yghx=728) 93.9 fL 79.0-92.2 MEAN CORPUSCULAR HEMOGLOBIN (BEAKER) (test 31.3 pg 25.7-32.2 gmih=745) MEAN CORPUSCULAR HEMOGLOBIN CONC (BEAKER) (test 33.3 GM/DL 32.3-36.5 bkws=118) RED CELL DISTRIBUTION WIDTH (BEAKER) (test 16.2 % 11.6-14.4 atdr=814) PLATELET COUNT (BEAKER) (test zqfg=753) 200 K/CU MM 150-450 MEAN PLATELET VOLUME (BEAKER) (test nccy=071) 12.2 fL 9.4-12.4 NUCLEATED RED BLOOD CELLS (BEAKER) (test 0 /100 WBC 0-0 zcvw=280) POCT-GLUCOSE [id number] 00:04:00 Test Item Value Reference Range Comments POC-GLUCOSE METER (BEAKER) 263 mg/dL 70-110 TESTED AT [facility] [address] [facility] (test tbbg=9549) [facility] [address] POCT-GLUCOSE [id number] 18:29:00 Test Item Value Reference Range Comments POC-GLUCOSE METER (BEAKER) 125 mg/dL 70-110 TESTED AT [address] (test cdbv=1845) [facility] [address] BODY FLUID [id number] 15:37:00 Test Item Value Reference Range Comments CRYSTALS, BODY FLUID No crystals seen. (BEAKER) (test iknd=8814) [id number] Myranda Young MD (BEAKER) (test blsm=1932) (electronic signature) BASIC METABOLIC [id number] 13:20:00 Test Item Value Reference Range Comments SODIUM (BEAKER) (test 132 meq/L 136-145 asbd=234) POTASSIUM (BEAKER) (test 4.2 meq/L 3.5-5.1 Specimen slightly knuj=702) hemolyzed CHLORIDE (BEAKER) (test 106 meq/L 98-107 cuam=171) CO2 (BEAKER) (test 21 meq/L 22-29 ehkn=626) BLOOD UREA NITROGEN 20 mg/dL 7-21 (BEAKER) (test kqfn=476) CREATININE (BEAKER) (test 0.68 mg/dL 0.57-1.25 Specimen slightly neqf=796) hemolyzed GLUCOSE RANDOM (BEAKER) 106 mg/dL 70-105 (test uddh=082) CALCIUM (BEAKER) (test 7.3 mg/dL 8.4-10.2 hlmk=473) EGFR (BEAKER) (test 121 mL/min/1.73 sq m ESTIMATED GFR IS NOT vbyo=9190) ACCURATE CREATININE CLEARANCE IN PREDICTING GLOMERULAR FILTRATION RATE. ESTIMATED GFR IS NOT APPLICABLE FOR DIALYSIS PATIENTS. Specimen slightly [id number] 13:18:00 Test Item Value Reference Range Comments MAGNESIUM (BEAKER) (test 1.8 mg/dL 1.6-2.6 Specimen slightly hemolyzed guif=031) [id number] 13:18:00 Test Item Value Reference Range Comments PHOSPHORUS (BEAKER) (test 2.7 mg/dL 2.3-4.7 Specimen slightly hemolyzed eito=550) HEPATIC FUNCTION [id number] 13:18:00 Test Item Value Reference Range Comments TOTAL PROTEIN (BEAKER) (test 5.6 gm/dL 6.0-8.3 Specimen slightly hemolyzed vvjo=194) ALBUMIN (BEAKER) (test 2.2 g/dL 3.5-5.0 Specimen slightly hemolyzed jsux=6448) BILIRUBIN TOTAL (BEAKER) (test 2.7 mg/dL 0.2-1.2 Specimen slightly hemolyzed bdqk=184) BILIRUBIN DIRECT (BEAKER) (test 1.2 mg/dL 0.1-0.5 Specimen slightly hemolyzed yflz=539) ALKALINE PHOSPHATASE (BEAKER) 60 U/L 40-150 (test znxe=382) AST (SGOT) (BEAKER) (test 223 U/L 5-34 Specimen slightly hemolyzed idel=431) ALT (SGPT) (BEAKER) (test 83 U/L 6-55 Specimen slightly hemolyzed nuac=558) Specimen slightly ictericPOCT-GLUCOSE [id number] 12:55:00 Test Item Value Reference Range Comments POC-GLUCOSE METER (BEAKER) 117 mg/dL 70-110 TESTED AT [address] (test xzpx=2712) [place] [id number] VANCOMYCIN LEVEL, [id number] 12:14:00 Test Item Value Reference Range Comments VANCOMYCIN TROUGH (BEAKER) (test uhpd=590) 10.0 ug/mL 10.0-20.0 POCT-GLUCOSE [id number] 06:26:00 Test Item Value Reference Range Comments POC-GLUCOSE METER (BEAKER) 121 mg/dL 70-110 TESTED AT [address] (test lksq=0785) [facility] [address] RAPID DRUG SCREEN, [id number] 04:06:00 Test Item Value Reference Range Comments BARBITURATE URINE (BEAKER) (test dzfp=285) Negative Negative BENZODIAZEPINE SCREEN URINE (BEAKER) (test Negative Negative djbg=421) COCAINE (METAB.) SCREEN (BEAKER) (test enej=7041) Negative Negative METHADONE SCREEN (BEAKER) (test bzxq=3254) Negative Negative OPIATE SCREEN URINE (BEAKER) (test pvyr=300) Positive Negative CANNABINOID SCREEN URINE (BEAKER) (test vixi=229) Negative Negative AMPH/METHAMPH SCREEN (BEAKER) (test vdei=7205) Positive Negative PHENCYCLIDINE SCREEN URINE (BEAKER) (test mfow=175) Negative Negative DRUG CUTOFF CONC.Cocaine 300 ng/mL Cannabinoid 50 ng/mLBenzodiazepine 200 ng/mLBarbiturate 200 ng/ mLPhencyclidine 25 ng/mLOpiate 300 ng/mLMethadone 300 ng/mLAmphetamine/ 1000 ng/mL MethamphetamineThis assay provides an unconfirmed qualitative test result for the clinical management of patients in emergency situations. Chain of custody not maintained. Some ldjc-nwb-xfyxvbn medications, as well as adulterants, may cause inaccurate results. Clinical correlation should be applied. A more comprehensivedrug screen or confirmation of a detected drug may be performed upon request.POCT-GLUCOSE [id number] 00 :34:00 Test Item Value Reference Range Comments POC-GLUCOSE METER (BEAKER) 171 mg/dL 70-110 TESTED AT [facility] [address] [facility] (test rbhw=0969) [facility] [address] POCT-GLUCOSE [id number] 18:00:00 Test Item Value Reference Range Comments POC-GLUCOSE METER (BEAKER) 283 mg/dL 70-110 TESTED AT [place] [id number] [facility] (test eows=5936) [place] [address] RAD, LEG, [id number] 17:07:00Reason for exam:->evaluate for air concerning for nec fascFINAL REPORT Right tibia and fibula. HISTORY: Evaluate [...] to the proximal tibia. Signed: Tremayne Lundberg MDReport Verified Date/Time: 05/05/2019 17:07:13 Reading Location: [facility] [id number] Ortho Consult Reading Room [id number] 16:54:00 Test Item Value Reference Range Comments PARTIAL THROMBOPLASTIN TIME (BEAKER) (test 32.0 seconds 22.5-36.0 gnwe=801) PROTHROMBIN [id number] 16:53:00 Test Item Value Reference Range Comments PROTIME (BEAKER) (test ihpo=267) 17.3 seconds 11.9-14.2 INR (BEAKER) (test rcib=749) 1.5 <=5.9 Effective 04/24/2019: PT Reference Range ChangeNew: 11.9-14.2 Previous: 11.7- 14.7RECOMMENDED COUMADIN/WARFARIN INR THERAPY RANGESSTANDARD DOSE: 2.0-3.0 Includes: PROPHYLAXIS for venous thrombosis, systemic embolization; TREATMENT for venous thrombosis and/or pulmonary embolus.HIGH RISK: Target INR is2.5-3.5 for patients wiht mechanical heart valves.CBC W/PLT COUNT & AUTO [id number] 16:46:00 Test Item Value Reference Range Comments WHITE BLOOD CELL COUNT (BEAKER) (test jfrx=506) 10.2 K/ L 3.5-10.5 RED BLOOD CELL COUNT (BEAKER) (test upaw=796) 4.12 M/ L 4.63-6.08 HEMOGLOBIN (BEAKER) (test uqma=176) 12.7 GM/DL 13.7-17.5 HEMATOCRIT (BEAKER) (test oakd=553) 38.5 % 40.1-51.0 MEAN CORPUSCULAR VOLUME (BEAKER) (test hygj=794) 93.4 fL 79.0-92.2 MEAN CORPUSCULAR HEMOGLOBIN (BEAKER) (test 30.8 pg 25.7-32.2 vmyf=152) MEAN CORPUSCULAR HEMOGLOBIN CONC (BEAKER) (test 33.0 GM/DL 32.3-36.5 bbty=596) RED CELL DISTRIBUTION WIDTH (BEAKER) (test 16.2 % 11.6-14.4 gnzj=122) PLATELET COUNT (BEAKER) (test ebqq=342) 169 K/CU MM 150-450 MEAN PLATELET VOLUME (BEAKER) (test myvv=795) 12.6 fL 9.4-12.4 NUCLEATED RED BLOOD CELLS (BEAKER) (test 0 /100 WBC 0-0 jdqb=280) NEUTROPHILS RELATIVE PERCENT (BEAKER) (test 71 % nihh=863) LYMPHOCYTES RELATIVE PERCENT (BEAKER) (test 16 % wcle=593) MONOCYTES RELATIVE PERCENT (BEAKER) (test 10 % iwlb=491) EOSINOPHILS RELATIVE PERCENT (BEAKER) (test 2 % mkxs=299) BASOPHILS RELATIVE PERCENT (BEAKER) (test 0 % zhvn=007) NEUTROPHILS ABSOLUTE COUNT (BEAKER) (test 7.16 K/ L 1.78-5.38 usyy=206) LYMPHOCYTES ABSOLUTE COUNT (BEAKER) (test 1.64 K/ L 1.32-3.57 dlvq=998) MONOCYTES ABSOLUTE COUNT (BEAKER) (test 1.04 K/ L 0.30-0.82 cfon=378) EOSINOPHILS ABSOLUTE COUNT (BEAKER) (test 0.17 K/ L 0.04-0.54 zwxy=335) BASOPHILS ABSOLUTE COUNT (BEAKER) (test 0.03 K/ L 0.01-0.08 nreb=894) IMMATURE GRANULOCYTES-RELATIVE PERCENT (BEAKER) 1 % 0-1 (test vozv=3632) B-TYPE NATRIURETIC FACTOR (BNP)2019-05-05 16:37:00 Test Item Value Reference Range Comments B-TYPE NATRIURETIC PEPTIDE (BEAKER) (test 1891 pg/mL 0-100 kubx=254) BODY FLUID CELL COUNT WITH [id number] 16:32:00 Test Item Value Reference Range Comments APPEARANCE FLUID (BEAKER) (test iiin=062) Cloudy Clear COLOR FLUID (BEAKER) (test yosp=388) Red Colorless, Straw RBC FLUID (BEAKER) (test fsrz=517) 73469 /cu mm <=1 ADJUSTED WBC FLUID (BEAKER) (test qfij=9216) 2560 /cu mm <=5 LINING CELLS (BEAKER) (test yirm=1711) 0 /cu mm <=1 NEUTROPHILS FLUID (BEAKER) (test ldoz=3854) 94 % LYMPHS FLUID (BEAKER) (test sdsl=086) 2 % MONO/MACROPHAGE FLUID (BEAKER) (test cxwj=414) 4 % EOSINOPHILS FLUID (BEAKER) (test xqsh=923) 0 % BASO FLUID (BEAKER) (test arnu=964) 0 % CONTAINER BODY FLUID (BEAKER) (test hjxg=3057) Sterile Cup BASIC METABOLIC [id number] 16:31:00 Test Item Value Reference Range Comments SODIUM (BEAKER) (test 133 meq/L 136-145 oelt=826) POTASSIUM (BEAKER) (test 3.9 meq/L 3.5-5.1 rlse=387) CHLORIDE (BEAKER) (test 103 meq/L 98-107 fasj=966) CO2 (BEAKER) (test 26 meq/L 22-29 nass=436) BLOOD UREA NITROGEN 18 mg/dL 7-21 (BEAKER) (test qayt=748) CREATININE (BEAKER) (test 0.71 mg/dL 0.57-1.25 srxn=272) GLUCOSE RANDOM (BEAKER) 152 mg/dL 70-105 (test yawx=973) CALCIUM (BEAKER) (test 7.8 mg/dL 8.4-10.2 ocur=964) EGFR (BEAKER) (test 115 mL/min/1.73 sq m ESTIMATED GFR IS NOT zhqp=1049) ACCURATE CREATININE CLEARANCE IN PREDICTING GLOMERULAR FILTRATION RATE. ESTIMATED GFR IS NOT APPLICABLE FOR DIALYSIS PATIENTS. [id number] 16:30:00 Test Item Value Reference Range Comments PHOSPHORUS (BEAKER) (test wvmw=946) 2.3 mg/dL 2.3-4.7 [id number] 16:30:00 Test Item Value Reference Range Comments MAGNESIUM (BEAKER) (test bkdk=026) 1.4 mg/dL 1.6-2.6 C-REACTIVE [id number] 16:30:00 Test Item Value Reference Range Comments C-REACTIVE PROTEIN (BEAKER) (test wggr=562) 3.40 mg/dL 0.00-0.50 RAD, CHEST, 1 VIEW, NON [id number] 14:59:00Reason for exam:->dyspnea, history of CHF and COPDShould this be performed at the bedside?->YesFINAL REPORT AP view of the chest dated 05/05/2019 CLINICAL INFORMATION: dyspnea, history of CHF and COPD Comment: Heart is enlarged. Pulmonary vasculature is unremarkable. Subsegmental atelectasis is seen in the left lower lobe. The rest of the lungs are clear. No pulmonary infiltrate or pleural effusion is present. Impression: Cardiomegaly without pulmonary edema. Signed: Lon Watson Verified Date/Time: 05/05/2019 14:59:38 Reading Location: [place] [id number] CT Body Reading Room RAD, KNEE, 3 VIEWS, [id number] 13: 28:00Reason for exam:->concern for septic arthritisShould this be performed at the bedside?->YesFINAL REPORT Right knee. HISTORY: Concern for septic arthritis. COMPARISON STUDY: None available. FINDINGS: Four views of the right knee demonstrate no evidence of fracture, malalignment or effusion. Atherosclerosis is seen. Signed: Tremayne Lundberg Verified Date/Time: 05/05/2019 13:28:26 Reading Location: [place] [id number] Ortho Consult Reading Room POCT-GLUCOSE [id number] 12:03:00 Test Item Value Reference Range Comments POC-GLUCOSE METER (ELIZABETH) 209 mg/dL 70-110 TESTED AT [facility] [address] [place] [address] (test shql=5123) [facility] [address]
[2019-07-23] MEDS ORDERED: LEVALBUTEROL 1.25 MG/3 ML NEB ONE (10:52)
[2019-07-23] MEDS ORDERED: FUROSEMIDE 100 MG/10 ML VIAL IV ONE (10:52)
[2019-07-23] MEDS ORDERED: IPRATROPIUM BROM 0.5MG/2.5ML ONE (10:52)
[2019-07-23] MEDS ORDERED: METHYLPREDNISOLONE 125 MG INJ ONE (10:52)
[2019-07-23] MEDS ORDERED: FAMOTIDINE 20 MG/2 ML VIAL IV ONE (10:53)
--- NOTE | 2019-07-23 11:19 | EKG ---
Test Date: 2019-07-23 Test Time: 10:41:15 Business Services Specialist Sales: JACINTA MEASUREMENT RESULTS: Intervals: Rate: 85 NE: 196 QRSD: 192 QT: 480 QTc: 571 [place]: P: 53 NE: 196 QRS: -75 T: 83 INTERPRETIVE STATEMENTS: Normal sinus rhythm Right bundle branch block Left anterior fascicular block Bifascicular block Abnormal ECG Compared to ECG 05/03/2019 21:42:35 Myocardial infarct finding no longer present T-wave abnormality no longer present Possible ischemia no longer present Bifascicular block still present Electronically Signed On 07-23-19 11:18:28 CDT by Shane Quijano
--- NOTE | 2019-07-23 11:29 | RAD REPORT ---
EXAM DESCRIPTION: RAD - Chest Single View - 07/23/2019 11:15 am CLINICAL HISTORY: Cough;COPD Chest pain. COMPARISON: Chest Single View dated 05/03/2019 FINDINGS: Portable technique limits examination quality. Linear opacities are present in the right lung base suspicious for developing pneumonia. The heart is moderately enlarged in size. No displaced fractures. IMPRESSION: Developing right base pneumonia.
[2019-07-23 11:43] LABS: Absolute Lymphocytes (CBC) 2.6 K/uL (0.7-4.9); Basophils % 1.1 % (0-1.3); Lymphocytes % 35.7 % (15.3-44.8); MPV 11.3 fL (7.6-11.3); RBC Red Blood Cell Count 4.05 M/uL (4.33-5.43)
--- NOTE | 2019-07-23 11:44 | ER ---
Nurse's Notes [facility] Name: Bob Santana Age: 54 yrs Sex: Male : 1965 Arrival Date: 07/23/2019 Time: 10:30 Bed 5 Private MD: Diagnosis: Chronic obstructive pulmonary disease with (acute) exacerbation;Cardiomegaly;Edema, unspecified;Unspecified combined systolic (congestive) and diastolic (congestive) heart failure;Hypoxemia;Pneumonia due to other specified bacteria-right lower lobe Presentation: 07/23 10:30 Presenting complaint: EMS states: Difficulty breathing worsening over 3 days. jl7 Transition of care: patient was not received from another setting of care. Onset of symptoms was July 20, 2019. Risk Assessment: Do you want to hurt yourself or someone else? Patient reports no desire to harm self or others. Initial Sepsis Screen: Does the patient meet any 2 criteria? RR > 20 per min. No. Patient's initial sepsis screen is negative. Does the patient have a suspected source of infection? No. Patient's initial sepsis screen is negative. Care prior to arrival: None. 10:30 Method Of Arrival: EMS: [facility] jl7 10:30 Acuity: KISHAN 3 jl7 Historical: - Allergies: 10:32 No Known Allergies; jl7 - Home Meds: 10:32 buspirone 10 mg Oral tab 1 tab 3 times per day [Active]; carvedilol 3.125 mg Oral tab 1 jl7 tab 2 times per day [Active]; digoxin 250 mcg Oral tab 1 tab once daily [Active]; furosemide 40 mg Oral tab 1 tab 2 times per day [Active]; lisinopril 5 mg Oral tab 1 tab once daily [Active]; spironolactone 25 mg Oral tab 1 tab once daily [Active]; - PMHx: 10:32 CHF; COPD; Hypertension; Cardiomegaly; jl7 - Immunization history:: Adult Immunizations unknown. - Ebola Screening: : No symptoms or risks identified at this time. - Family history:: not pertinent. - Social history:: Smoking status: Patient uses tobacco products, smokes one-half pack cigarettes per day. Screenin:22 Abuse screen: Denies threats or abuse. Denies injuries from another. Nutritional jl7 screening: No deficits noted. Tuberculosis screening: No symptoms or risk factors identified. Fall Risk IV access (20 points). Total Metzger Fall Scale indicates No Risk (0-24 pts). Assessment: 10:30 General: Appears distressed, uncomfortable, Behavior is calm, cooperative. Pain: Denies jl7 pain. Neuro: Level of Consciousness is awake, alert, obeys commands, Oriented to person, place, time, situation. Cardiovascular: Heart tones present Patient's skin is warm and dry. Respiratory: Airway is patent Respiratory effort is even, labored, with retractions, Respiratory pattern is symmetrical, tachypnea Breath sounds with wheezes bilaterally. GI: Abdomen is round distended. : No signs and/or symptoms were reported regarding the genitourinary system. EENT: No signs and/or symptoms were reported regarding the EENT system. Derm: Skin is dry, Skin is pale, Skin temperature is warm. 11:30 Reassessment: Patient appears in no apparent distress at this time. Patient and/or jl7 family updated on plan of care and expected duration. Pain level reassessed. Patient is alert, oriented x 3, equal unlabored respirations, skin warm/dry/pink. Patient states feeling better. Patient states symptoms have improved. 12:26 Reassessment: Patient appears in no apparent distress at this time. No changes from jl7 previously documented assessment. Patient and/or family updated on plan of care and expected duration. Pain level reassessed. Patient is alert, oriented x 3, equal unlabored respirations, skin warm/dry/pink. 13:34 Reassessment: Patient appears in no apparent distress at this time. Patient and/or jl7 family updated on plan of care and expected duration. Pain level reassessed. Patient is alert, oriented x 3, equal unlabored respirations, skin warm/dry/pink. Respiratory: Airway is patent Respiratory effort is even, unlabored, Respiratory pattern is regular, symmetrical, Breath sounds are clear bilaterally. Vital Signs: 10:32 BP 108 / 59; Pulse 86; Resp 27 S; Temp 97.5(O); Pulse Ox 98% on R/A; jl7 11:00 BP 128 / 68; Pulse 84; Resp 22 S; Pulse Ox 100% on Nebulizer Mask; jl7 12:22 BP 136 / 66; Pulse 97; Resp 19 S; Pulse Ox 98% on 4 lpm NC; jl7 13:04 BP 109 / 73; Pulse 102; Resp 18 S; Pulse Ox 93% on 2 lpm NC; jl7 14:30 BP 119 / 75; Pulse 102; Resp 16; Pulse Ox 92% on 4 lpm NC; jl7 ED Course: 10:30 Patient arrived in ED. jl7 10:30 Kyrie Alas MD is Attending Physician. aleshia 10:30 First set of blood cultures drawn by ED staff. jl7 10:31 Triage completed. jl7 10:32 Arm band placed on right wrist. jl7 10:40 Gladis Anne, SKYLAR is Primary Nurse. jl7 10:45 Inserted saline lock: 18 gauge in left EJ, using aseptic technique. ,using aseptic jl7 technique. Inserted by Dr. Alas Blood collected. 10:45 Second set of blood cultures drawn by physician. jl7 10:51 EKG done, by remote sensing technician. reviewed by Kyrie Alas MD. sm3 11:21 XRAY Chest (1 view) In Process Unspecified. EDMS 11:40 Marychuy Nicole MD is Hospitalizing Provider. aleshia 12:22 Patient has correct armband on for positive identification. Placed in gown. Bed in low jl7 position. Call light in reach. Side rails up X 1. surveillance monitor on. Pulse ox on. NIBP on. Warm blanket given. 12:23 Urine collected: clean catch specimen, clear. jl7 14:55 No provider procedures requiring assistance completed. Patient admitted, IV remains in jl7 place. intact, No redness/swelling at site. Administered Medications: 11:00 Drug: SOLU-Medrol 125 mg Route: IVP; Site: left jugular; jl7 11:30 Follow up: Response: No adverse reaction 7 11:00 Drug: Xopenex 3.75 mg Route: Inhalation; jl7 11:45 Follow up: Response: No adverse reaction; Marked relief of symptoms jl7 11:00 Drug: AtroVENT Aerosol 0.5 mg Route: Inhalation; jl7 11:45 Follow up: Response: No adverse reaction; Marked relief of symptoms jl7 11:02 Drug: Pepcid 20 mg Route: IVP; Site: left jugular; jl7 12:25 Follow up: Response: No adverse reaction jl7 11:30 Drug: Lasix 60 mg Route: IVP; Site: left jugular; jl7 12:25 Follow up: Response: No adverse reaction jl7 12:50 Drug: Magnesium Sulfate 2 grams Route: IVPB; Infused Over: 2 hrs; Site: left jugular; jl7 14:50 Follow up: IV Status: Completed infusion jl7 12:52 Drug: Zosyn 3.375 grams Route: IVPB; Infused Over: 60 mins; Site: left jugular; jl7 13:52 Follow up: Response: No adverse reaction; IV Status: Completed infusion jl7 12:52 Drug: Aspirin 162 mg Route: PO; jl7 13:07 Follow up: Response: No adverse reaction jl7 12:59 Drug: Spironolactone 25 mg Route: PO; jl7 13:07 Follow up: Response: No adverse reaction jl7 14:01 Drug: Zithromax 500 mg Route: IVPB; Infused Over: 1 hrs; Site: left jugular; jl7 14:50 Follow up: IV Status: Infusion continued upon admission jl7 Outcome: 11:43 Decision to Hospitalize by Provider. aleshia 14:56 Admitted to Tele accompanied by tech, via stretcher, room 407, with oxygen, with chart, mindi Report called to SKYLAR Mix 14:56 Condition: stable 14:56 Discharge instructions given to patient, Instructed on the need for admit, Demonstrated understanding of instructions. 14:56 Patient left the ED. jl7 Signatures: Dispatcher [employer] Kyrie Collins MD MD cha Leal, Jahala, RN RN jl7 Radha Wagner sm3 Corrections: (The following items were deleted from the chart) 11:38 11:02 Pepcid 20 mg IVP in left antecubital mindi jlEnoch
--- NOTE | 2019-07-23 11:45 | EDPHYS ---
Physician Documentation [facility] Name: Bob Santana Age: 54 yrs Sex: Male : 1965 Arrival Date: 07/23/2019 Time: 10:30 Bed 5 Private MD: ED Physician Kyrie Alas HPI: 07/23 10:48 This 54 yrs old Male presents to ER via EMS with complaints of Breathing aleshia Difficulty. 10:48 The patient has shortness of breath at rest, with light activity. Onset: The aleshia symptoms/episode began/occurred 3 day(s) ago. Duration: The symptoms are continuous, and are steadily getting worse. The patient's shortness of breath has no apparent modifying factors. Severity of symptoms: At their worst the symptoms were mild moderate. The patient has experienced similar episodes in the past, multiple times. Historical: - Allergies: 10:32 No Known Allergies; jl7 - Home Meds: 10:32 buspirone 10 mg Oral tab 1 tab 3 times per day [Active]; carvedilol 3.125 mg Oral tab 1 jl7 tab 2 times per day [Active]; digoxin 250 mcg Oral tab 1 tab once daily [Active]; furosemide 40 mg Oral tab 1 tab 2 times per day [Active]; lisinopril 5 mg Oral tab 1 tab once daily [Active]; spironolactone 25 mg Oral tab 1 tab once daily [Active]; - PMHx: 10:32 CHF; COPD; Hypertension; Cardiomegaly; jl7 - Immunization history:: Adult Immunizations unknown. - Ebola Screening: : No symptoms or risks identified at this time. - Family history:: not pertinent. - Social history:: Smoking status: Patient uses tobacco products, smokes one-half pack cigarettes per day. ROS: 10:48 Constitutional: Negative for fever, chills, and weight loss, Eyes: Negative for injury, aleshia pain, redness, and discharge, ENT: Negative for injury, pain, and discharge, Neck: Negative for injury, pain, and swelling, Abdomen/GI: Negative for abdominal pain, nausea, vomiting, diarrhea, and constipation, Back: Negative for injury and pain, : Negative for injury, bleeding, discharge, and swelling, Skin: Negative for injury, rash, and discoloration, Neuro: Negative for headache, weakness, numbness, tingling, and seizure, Psych: Negative for depression, anxiety, suicide ideation, homicidal ideation, and hallucinations, Allergy/Immunology: Negative for hives, rash, and allergies, Endocrine: Negative for neck swelling, polydipsia, polyuria, polyphagia, and marked weight changes. 10:48 Cardiovascular: Positive for chest pain. 10:48 Respiratory: Positive for shortness of breath, wheezing, expiratory. 10:48 MS/extremity: Positive for decreased range of motion, pain, swelling, tenderness. Exam: 10:48 Constitutional: This is a well developed, well nourished patient who is awake, alert, aleshia and in no acute distress. Head/Face: Normocephalic, atraumatic. Eyes: Pupils equal round and reactive to light, extra-ocular motions intact. Lids and lashes normal. Conjunctiva and sclera are non-icteric and not injected. Cornea within normal limits. Periorbital areas with no swelling, redness, or edema. ENT: Nares patent. No nasal discharge, no septal abnormalities noted. Tympanic membranes are normal and external auditory canals are clear. Oropharynx with no redness, swelling, or masses, exudates, or evidence of obstruction, uvula midline. Mucous membranes moist. Neck: Trachea midline, no thyromegaly or masses palpated, and no cervical lymphadenopathy. Supple, full range of motion without nuchal rigidity, or vertebral point tenderness. No Meningismus. Chest/axilla: Normal chest wall appearance and motion. Nontender with no deformity. No lesions are appreciated. Abdomen/GI: Soft, non-tender, with normal bowel sounds. No distension or tympany. No guarding or rebound. No evidence of tenderness throughout. Back: No spinal tenderness. No costovertebral tenderness. Full range of motion. Skin: Warm, dry with normal turgor. Normal color with no rashes, no lesions, and no evidence of cellulitis. Neuro: Awake and alert, GCS 15, oriented to person, place, time, and situation. Cranial nerves II-XII grossly intact. Motor strength 5/5 in all extremities. Sensory grossly intact. Cerebellar exam normal. Normal gait. Psych: Awake, alert, with orientation to person, place and time. Behavior, mood, and affect are within normal limits. 10:48 Cardiovascular: Rate: tachycardic, Rhythm: regular, Pulses: Pulses are 4+ in bilateral radial, brachial, femoral, popliteal, posterior tibial and and dorsalis pedis arteries.. Heart sounds: normal, Edema: 4+ edema to level of left midcalf and right midcalf, JVD: is noted bilaterally, to the angle of the jaw. Vital Signs: 10:32 BP 108 / 59; Pulse 86; Resp 27 S; Temp 97.5(O); Pulse Ox 98% on R/A; jl7 11:00 BP 128 / 68; Pulse 84; Resp 22 S; Pulse Ox 100% on Nebulizer Mask; jl7 12:22 BP 136 / 66; Pulse 97; Resp 19 S; Pulse Ox 98% on 4 lpm NC; jl7 13:04 BP 109 / 73; Pulse 102; Resp 18 S; Pulse Ox 93% on 2 lpm NC; jl7 14:30 BP 119 / 75; Pulse 102; Resp 16; Pulse Ox 92% on 4 lpm NC; jl7 Procedures: 11:36 Peripheral line: by aseptic technique a peripheral line was placed in the left external aleshia jugular vein. MDM: 10:30 Patient medically screened. [facility] 10:53 Data reviewed: vital signs, nurses notes, lab test result(s), EKG, radiologic studies, aleshia plain films. 07/23 10:48 Order name: Basic Metabolic Panel; Complete Time: 12:27 [facility] 07/23 10:48 Order name: CBC with Diff; Complete Time: 12: [facility] 07/23 10:48 Order name: LFT's; Complete Time: 12: [facility] 07/23 10:48 Order name: Magnesium; Complete Time: 12:27 [facility] 07/23 10:48 Order name: NT PRO-BNP; Complete Time: 12:27 [facility] 07/23 10:48 Order name: PT-INR; Complete Time: 13:05 [facility] 07/23 10:48 Order name: Troponin (emerg Dept Use Only); Complete Time: 12:27 [facility] 07/23 10:48 Order name: Lipase; Complete Time: 12:27 [facility] 07/23 10:48 Order name: AMMONIA; Complete Time: 12:27 [facility] 07/23 10:48 Order name: Urine Culture [facility] 07/23 10:48 Order name: Blood Culture Adult (2) [facility] 07/23 10:48 Order name: Procalcitonin; Complete Time: 12:27 [facility] 07/23 10:48 Order name: Lactate; Complete Time: 12:27 [facility] 07/23 10:48 Order name: Digoxin; Complete Time: 12:27 [facility] 07/23 10:48 Order name: XRAY Chest (1 view); Complete Time: 11:36 [facility] 07/23 10:48 Order name: EKG; Complete Time: 10:49 [facility] 07/23 10:48 Order name: Cardiac monitoring; Complete Time: 11:08 [facility] 07/23 10:48 Order name: EKG - Nurse/Tech; Complete Time: 11:08 [facility] 07/23 12:27 Order name: Urine Dipstick--Ancillary (enter results); Complete Time: 13:05 07/23 12:43 Order name: CONS Physician Consult [facility] 07/23 10:48 Order name: IV Saline Lock; Complete Time: 11:38 [facility] 07/23 10:48 Order name: Labs collected and sent; Complete Time: 11:38 [facility] 07/23 10:48 Order name: O2 Per Protocol; Complete Time: 11:08 [facility] 07/23 10:48 Order name: O2 Sat Monitoring; Complete Time: 11:08 [facility] 07/23 10:48 Order name: Urine Dipstick-Ancillary (obtain specimen); Complete Time: 13:09 [facility] 07/23 11:25 Order name: Labs - recollect needed; Complete Time: 11:38 bd Administered Medications: 11:00 Drug: SOLU-Medrol 125 mg Route: IVP; Site: left jugular; jl7 11:30 Follow up: Response: No adverse reaction 7 11:00 Drug: Xopenex 3.75 mg Route: Inhalation; jl7 11:45 Follow up: Response: No adverse reaction; Marked relief of symptoms 7 11:00 Drug: AtroVENT Aerosol 0.5 mg Route: Inhalation; jl7 11:45 Follow up: Response: No adverse reaction; Marked relief of symptoms jl7 11:02 Drug: Pepcid 20 mg Route: IVP; Site: left jugular; jl7 12:25 Follow up: Response: No adverse reaction 7 11:30 Drug: Lasix 60 mg Route: IVP; Site: left jugular; jl7 12:25 Follow up: Response: No adverse reaction jl7 12:50 Drug: Magnesium Sulfate 2 grams Route: IVPB; Infused Over: 2 hrs; Site: left jugular; jl7 14:50 Follow up: IV Status: Completed infusion jl7 12:52 Drug: Zosyn 3.375 grams Route: IVPB; Infused Over: 60 mins; Site: left jugular; jl7 13:52 Follow up: Response: No adverse reaction; IV Status: Completed infusion 7 12:52 Drug: Aspirin 162 mg Route: PO; jl7 13:07 Follow up: Response: No adverse reaction jl7 12:59 Drug: Spironolactone 25 mg Route: PO; jl7 13:07 Follow up: Response: No adverse reaction jl7 14:01 Drug: Zithromax 500 mg Route: IVPB; Infused Over: 1 hrs; Site: left jugular; jl7 14:50 Follow up: IV Status: Infusion continued upon admission jl7 Disposition: 07/23/19 11:43 Hospitalization ordered by Marychuy Nicole for Inpatient Admission. Preliminary diagnosis are Chronic obstructive pulmonary disease with (acute) exacerbation, Cardiomegaly, Edema, unspecified, Unspecified combined systolic (congestive) and diastolic (congestive) heart failure, Hypoxemia, Pneumonia due to other specified bacteria - right lower lobe. - Bed requested for Telemetry/MedSurg (Inpatient). - Status is Inpatient Admission. jl7 - Condition is Fair. - Problem is new. - Symptoms have improved. UTI on Admission? No Signatures: Dispatcher [employer] EDMS Svetlana Menendez Corey, MD MD cha Leal, Jahala RN RN jl7 Corrections: (The following items were deleted from the chart) 14:22 11:43 Hospitalization Ordered by Marychuy Nicole MD for Inpatient Admission. Preliminary bd diagnosis is Chronic obstructive pulmonary disease with (acute) exacerbation; Cardiomegaly; Edema, unspecified; Unspecified combined systolic (congestive) and diastolic (congestive) heart failure; Hypoxemia; Pneumonia due to other specified bacteria - right lower lobe. Bed requested for Telemetry/MedSurg (Inpatient). Status is Inpatient Admission. Condition is Fair. Problem is new. Symptoms have improved. UTI on Admission? No. aleshia 14:27 14:22 07/23/2019 11:43 Hospitalization Ordered by Marychuy Nicole MD for Inpatient bd Admission. Preliminary diagnosis is Chronic obstructive pulmonary disease with (acute) exacerbation; Cardiomegaly; Edema, unspecified; Unspecified combined systolic (congestive) and diastolic (congestive) heart failure; Hypoxemia; Pneumonia due to other specified bacteria - right lower lobe. Bed requested for Telemetry/MedSurg (Inpatient). Status is Inpatient Admission. Condition is Fair. Problem is new. Symptoms have improved. UTI on Admission? No. bd 14:56 14:27 07/23/2019 11:43 Hospitalization Ordered by Marychuy Nicole MD for Inpatient jl7 Admission. Preliminary diagnosis is Chronic obstructive pulmonary disease with (acute) exacerbation; Cardiomegaly; Edema, unspecified; Unspecified combined systolic (congestive) and diastolic (congestive) heart failure; Hypoxemia; Pneumonia due to other specified bacteria - right lower lobe. Bed requested for Telemetry/MedSurg (Inpatient). Status is Inpatient Admission. Condition is Fair. Problem is new. Symptoms have improved. UTI on Admission? No. bd
[2019-07-23 12:04] LABS: ALT/SGPT 93 U/L (12-78); AST/SGOT 147 U/L (15-37); Albumin 2.1 g/dL (3.4-5.0); Alkaline Phosphatase 111 U/L (45-117); BUN Blood Urea Nitrogen 17 mg/dL (7-18); Bicarbonate 25 mmol/L (21-32); Bilirubin Total 1.5 mg/dL (0.2-1.0); Digoxin Level < 0.10 ng/mL (0.80-2.00); Glucose Level 134 mg/dL (74-106); Lipase 147 U/L (73-393); Magnesium 1.6 mg/dL (1.8-2.4); NT PRO-BNP 3818 pg/mL (<125); Potassium 3.5 mmol/L (3.5-5.1); Protein, Total 5.7 g/dL (6.4-8.2); Sodium Level 143 mmol/L (136-145); Troponin (Emerg Dept Use Only) 0.07 ng/mL (0.0-0.045)
[2019-07-23 12:30] LABS: Protime INR 1.3
[2019-07-23] MEDS ORDERED: ASPIRIN 81 MG CHEWABLE TABLET ONE (12:44)
[2019-07-23] MEDS ORDERED: Magnesium Sulfate 2gm IVPB 2 G/50 ML BAG IV ONE (12:44)
[2019-07-23] MEDS ORDERED: PIPER/TAZO/NS 3.375gm 3.375 GM/100 ML BAG ONE (12:45)
[2019-07-23] MEDS ORDERED: AZITHROMYCIN IV 500 MG in NA CHLORIDE 0.9% 250 ML IVPB ONE (12:45)
[2019-07-23 12:57] LABS: Urine Blood NEGATIVE (NEG); Urine Glucose NEGATIVE (NEG); Urine Protein NEGATIVE (NEG); Urine Specific Gravity 1.015 (1.005-1.030); Urine pH 6.5 (5.0-7.0)
[2019-07-23] MEDS ORDERED: SPIRONOLACTONE 25 MG TABLET PO ONE (13:00)
[2019-07-23] MEDS: IPRATROPIUM BROM 0.5MG/2.5ML NEB PRN (15:10)
[2019-07-23] MEDS: ALBUTEROL 2.5 MG/3 ML NEB SOL NEB PRN (15:10)
[2019-07-23] MEDS: FUROSEMIDE 40 MG/4 ML VIAL IV SCH (16:02)
[2019-07-23 16:57] VITALS: BMI 33.5
[2019-07-23 17:04] LABS: Arterial Blood Carboxyhemoglob 1.6 % (0-1.5); Blood Gas Oxyhemoglobin 93.9 % (94-97); Blood O2 Saturation 96.2 % (92-98.5)
--- NOTE | 2019-07-23 17:06 | P.HP ---
Certification for Inpatient Patient admitted to: Observation With expected LOS: <2 Midnights Patient will require the following post-hospital care: None Practitioner: I am a practitioner with admitting privileges, knowledge of patient current condition, hospital course, and medical plan of care. Services: Services provided to patient in accordance with Admission requirements found in Title 42 Section 412.3 of the Code of Federal Regulations Patient History Date of Service: 07/23/19 Primary Care Provider: None - Does not follow up with PCP Reason for admission: SOB History of Present Illness: Patient is a 54-year-old gentleman with pmhx of HTN, CAD, CHF, Drug Abuse, Medical Non-compliance and Lymphedema who presented to the ER with SOB for past 4 day and has gotten progressively worse. Pt has also not been taking his CHF medication as he ran out for over 1 week ago. Pt also admits to do Methamphetamines as well. Pt was recently admitted to the hospital for nec fas and was transferred to [place] for intensive care. Was diagnosed with Severe systolic CHF. Pt state since then he was doing well, however he ran out and then started feeling worse. Allergies No Known Allergies Allergy (Unverified 05/04/19 02:56) Home Medications: Albuterol Sulfate [Proair Respiclick] 90 mcg IH Q4HR 05/04/19 Buspirone HCl [Buspar] 10 mg PO TID 05/04/19 Carvedilol 3.125 mg PO BID 05/04/19 Digoxin [Lanoxin] 0.25 mg PO DAILY 05/04/19 Furosemide 40 mg PO BID 05/04/19 Lisinopril [Prinivil] 5 mg PO DAILY 05/04/19 Spironolactone [Aldactone] 25 mg PO DAILY 05/04/19 Tiotropium [place] [Spiriva Respimat] 4 gm IH DAILY 05/04/19 - Past Medical/Surgical History Has patient received pneumonia vaccine in the past: No Diabetic: No -: HTN -: CHF -: COPD - Family History Mother -: Other (see notes) Notes: epilepsy - Social History Smoking Status: Current every day smoker Alcohol use: No CD- Drugs: No Caffeine use: No Place of Residence: Home Review of Systems 10-point ROS is otherwise unremarkable Physical Examination - Vital Signs Temperature: 97.5 F Blood Pressure: 129/65 Pulse: 97 Respirations: 16 - Physical Exam General: Oriented x2, Mild distress, Other (Lethargic ) Neck: JVD distended Respiratory: Normal air movement, Crackles/rales, Expiratory wheezes, Inspiratory wheezes Cardiovascular: Regular rate/rhythm, Normal S1 S2 Gastrointestinal: Normal bowel sounds, Soft and benign, Non-distended, No tenderness Musculoskeletal: Swelling (3+ edema ) Integumentary: No rashes Neurological: Normal speech, Normal tone, Abnormal strength Lymphatics: No axilla or inguinal lymphadenopathy - Studies Laboratory Data (last 24 hrs) 07/23/19 11:30: PT 15.2 H, INR 1.30 07/23/19 11:30: WBC 7.4, Hgb 12.6 L, Hct 38.0 L, Plt Count 112 L 07/23/19 10:30: Sodium 143, Potassium 3.5, BUN 17, Creatinine 0.98, Glucose 134 H, Magnesium 1.6 L, Total Bilirubin 1.5 H, AST 147 H, ALT 93 H, Alkaline Phosphatase 111, Lipase 147 Assessment and Plan - Problems (Diagnosis) (1) CHF (congestive heart failure) Current Visit: Yes Status: Acute Plan: CHF exacerbation due to noncompliance with medication. -pt out of his med for over 1 week -Will start on IV lasix 80mg BID -Will also restart on Digoxin and spironolactone -Cardiology consulted, Awaiting Reccs -Fluid restriction and Low NA diet Qualifiers: Heart failure type: systolic Heart failure chronicity: acute on chronic Qualified Code(s): I50.23 - Acute on chronic systolic (congestive) heart failure (2) COPD (chronic obstructive pulmonary disease) Current Visit: Yes Status: Acute Plan: COPD exacerbation 2.2 to Possible PNA vs Fluid overload -Duonebs, Steroids and oxygen Qualifiers: COPD type: COPD with acute lower respiratory infection Qualified Code(s): J44.0 - Chronic obstructive pulmonary disease with acute lower respiratory infection (3) Drug abuse Current Visit: Yes Status: Acute Plan: Drug Abuse -(+) for Methamphetamines (4) Chronic acquired lymphedema Current Visit: No Status: Chronic (5) DM2 (diabetes mellitus, type 2) Current Visit: No Status: Chronic Qualifiers: Diabetes mellitus skilled nursing insulin use: with dry house tender use Diabetes mellitus complication status: without complication Qualified Code(s): E11.9 - Type 2 diabetes mellitus without complications; Z79.4 - correction (current) use of insulin (6) H/O: hypertension Current Visit: No Status: Chronic - Plan Admit for CHF exacerbation and COPD exacerbation. Discharge Plan: Home Plan to discharge in: Greater than 2 days - Advance Directives Does patient have a Living Will: Yes Does patient have a Durable POA for Healthcare: Yes - Code Status/Comfort Care Code Status Assessed: Yes Critical Care: No
[2019-07-23] MEDS: predniSONE 10 MG TAB PO SCH (20:43)
[2019-07-23] MEDS: CARVEDILOL 3.125 MG TAB PO SCH (20:43)
[2019-07-23] MEDS: BUSPIRONE HCL 5 MG TABLET PO SCH (20:43)
[2019-07-23] MEDS ORDERED: HOME MED 1 EA UNK (Buspirone Hcl [Buspar] 10 MG) PO SCH (21:00)
[2019-07-24 04:57] LABS: Absolute Lymphocytes (CBC) 1.5 K/uL (0.7-4.9); Basophils % 0.7 % (0-1.3); Hematocrit 37.4 % (39.6-49.0); Lymphocytes % 25.2 % (15.3-44.8); MPV 11.6 fL (7.6-11.3); RBC Red Blood Cell Count 3.95 M/uL (4.33-5.43)
[2019-07-24 05:02] LABS: Albumin 1.9 g/dL (3.4-5.0); Potassium 3.8 mmol/L (3.5-5.1); Protein, Total 5.5 g/dL (6.4-8.2)
[2019-07-24] MEDS: CARVEDILOL 3.125 MG TAB PO SCH ×2 (08:14→21:59)
[2019-07-24] MEDS: BUSPIRONE HCL 5 MG TABLET PO SCH ×3 (08:15→21:59)
[2019-07-24] MEDS: DIGOXIN 0.25 MG TABLET PO SCH (08:15)
[2019-07-24] MEDS: predniSONE 10 MG TAB PO SCH ×2 (08:16→21:59)
[2019-07-24] MEDS: FUROSEMIDE 40 MG/4 ML VIAL IV SCH ×2 (08:16→16:06)
[2019-07-24] MEDS: SPIRONOLACTONE 25 MG TABLET PO SCH (08:16)
[2019-07-24] MEDS ORDERED: ENOXAPARIN 40 MG/0.4 ML SQ SCH (09:00)
[2019-07-24] MEDS ORDERED: LISINOPRIL 5 MG TAB PO SCH (09:00)
[2019-07-24] MEDS: LACTULOSE 20 GM/30 ML UCUP PO SCH ×3 (10:53→21:59)
--- NOTE | 2019-07-24 11:13 | P.PN ---
Subjective Date of Service: 07/24/19 Primary Care Provider: None - Does not follow up with PCP Chief Complaint: SOB Patient seen and examined at bedside with RN. Chart reviewed. Case discussed with cardiology at this time. Patient currently still appears to be lethargic. Able to respond to commands however continues to be increasingly sleepy. Denies having any fever chills nausea vomiting Review of Systems 10-point ROS is otherwise unremarkable Physical Examination - Vital Signs Temperature: 98.1 F Blood Pressure: 119/70 Pulse: 97 Respirations: 22 Pulse Ox (%): 98 - Physical Exam General: In no apparent distress, Other (Lethargic) Neck: Supple, JVD distended Respiratory: Normal air movement, Crackles/rales Cardiovascular: Regular rate/rhythm, Normal S1 S2 Gastrointestinal: Normal bowel sounds, Ascites Musculoskeletal: No tenderness Integumentary: No rashes Neurological: Normal speech, Normal tone, Normal affect Lymphatics: No axilla or inguinal lymphadenopathy - Studies Laboratory Data (last 24 hrs) 07/23/19 11:30: PT 15.2 H, INR 1.30 07/23/19 11:30: WBC 7.4, Hgb 12.6 L, Hct 38.0 L, Plt Count 112 L 07/23/19 10:30: Sodium 143, Potassium 3.5, BUN 17, Creatinine 0.98, Glucose 134 H, Magnesium 1.6 L, Total Bilirubin 1.5 H, AST 147 H, ALT 93 H, Alkaline Phosphatase 111, Lipase 147 Microbiology Data (last 24 hrs): 07/23/19 10:30 Blood - Blood Anaerobic Blood Culture - Final Medications List Reviewed: Yes Assessment And Plan - Current Problems (Diagnosis) (1) CHF (congestive heart failure) Current Visit: Yes Status: Acute Plan: CHF exacerbation due to noncompliance with medication. -pt has been out of his med for over 1 week -currently on n IV lasix 80mg BID -restarted Digoxin, Coreg and spironolactone -Cardiology consulted, recommendations appreciated -Fluid restriction and Low NA diet Qualifiers: Heart failure type: systolic Heart failure chronicity: acute on chronic Qualified Code(s): I50.23 - Acute on chronic systolic (congestive) heart failure (2) Hepatic encephalopathy Current Visit: Yes Status: Acute Plan: Patient currently with lethargy and somnolence -ABGs are within normal limits -elevated ammonia level along with elevated LFTs -LFTs improving today -started on lactulose 30 mg t.i.d. -will also get abdominal ultrasound to evaluate for ascites (3) COPD (chronic obstructive pulmonary disease) Current Visit: Yes Status: Acute Plan: COPD exacerbation 2.2 to Possible PNA vs Fluid overload -Duonebs, Steroids and oxygen Qualifiers: COPD type: COPD with acute lower respiratory infection Qualified Code(s): J44.0 - Chronic obstructive pulmonary disease with acute lower respiratory infection (4) Drug abuse Current Visit: Yes Status: Acute Plan: Drug Abuse -(+) for Methamphetamines (5) Chronic acquired lymphedema Current Visit: No Status: Chronic (6) DM2 (diabetes mellitus, type 2) Current Visit: No Status: Chronic Qualifiers: Diabetes mellitus predatory animal exterminator insulin use: with predatory animal exterminator use Diabetes mellitus complication status: without complication Qualified Code(s): E11.9 - Type 2 diabetes mellitus without complications; Z79.4 - terminal operations 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
[2019-07-24] MEDS ORDERED: D50W 25 GM/50 ML SYRINGE IV PRN (11:16)
[2019-07-24] MEDS ORDERED: GLUCAGON 1 MG/VIAL IM PRN (11:16)
--- NOTE | 2019-07-24 11:30 | CON ---
Date of Consultation: 07/23/2019 Reason For Consultation: Congestive heart failure. History Of Present Illness: Mr. Dhaliwal is a 54-year-old white male, has a history of venous insuffic iency, COPD, and hypertension. He recently was in the medical center and was told he has an ejection fraction of 25%. He has been noncompliant with his medicine. He ran out of money and did not buy a ny of his medications and came back with CHF exacerbation. He came back with shortness of breath, PN D, orthopnea, and pedal edema. Denied any chest pain. He denied any syncope or palpitation. Past Medical History: As stated above. Allergies: NEGATIVE. Review of Systems: Negative. Social History: Negative. Family History: Noncontributory. Medications: At home include Coreg 3.125 twice a day, Lasix 40 mg daily, Aldactone 25 mg daily, digo bladimir, and lisinopril 5 mg daily. Physical Examination: General: By the time I saw him, he was diuresed significantly and was feeling better. Vital Signs: Stable. He is afebrile. He is in a sinus rhythm. HEENT: Negative. Neck: Supple without any lymphadenopathy or bruit, but he had JVD 3 cm bilaterally. Chest: Revealed diffuse rales at both bases. Cardiac: Revealed a regular rhythm and rate with S3 gallops. Abdomen: Obese, but benign. Extremities: Reveal 2+ edema to the knees. Skin: Dry and intact. Vascular: Pulses are present bilaterally and symmetrical. Neurologic: He is nonfocal. Diagnostic Data: His magnesium was 1.6. Troponin 0.07. BNP . His ALT was 93, AST was 14 7. Chest x-ray showed possible pneumonia at the right base. EKG showed bifascicular block. Impression And Plan: 1.Acute exacerbation of chronic systolic congestive heart failure. 2.History of cellulitis. 3.Possible right-sided pneumonia. 4.Bifascicular block on EKG. 5.Low magnesium. 6.Elevated liver function tests, probably secondary to congestive heart failure. 7.Elevated troponin and BNP secondary to congestive heart failure. 8.History of chronic obstructive pulmonary disease. 9.History of venous insufficiency. 10.History of hypertension. Mr. Dhaliwal's medical regimen is adequate with Coreg, Lasix, Aldactone, digoxin, and lisinopril. He n eeds to be more compliant. He needs to watch his salt intake more. I think we can increase the dosa ges of all his medicines I would start increasing the Coreg to at least 6.25 or 12.5 twice a day. I would increase the lisinopril dose to 10 mg daily. The patient should be strongly conside red for Entresto or maybe heart catheterization. If the medications does not work in the next 90 day s, then he should be considered for the defibrillator. He needs to have regular cardiac followup and I stressed that to him. I discussed the case further with Dr. Nicole. COSME/DAVID Voice ID: [id number] Report ID: [id number]
[2019-07-24] MEDS: INSULIN -REGULAR HUMAN 50 UNIT/0.5 ML ML SQ SCH ×3 (12:16→21:00)
--- NOTE | 2019-07-24 12:37 | ECHO ---
HEIGHT: 5 ft 10 in WEIGHT: 233 lb 8 oz DATE OF STUDY: 07/24/[address]: Shane Quijano MD 2-DIMENSIONAL: YES M.MODE: YES DOPPLER: YES COLOR FLOW: YES TDS: YES PORTABLE: NO DEFINITY: NO BUBBLE STUDY: NO DIAGNOSIS: CONGESTIVE HEART FAILURE CARDIAC HISTORY: CATHERIZATION: SURGERY: PROSTHETIC VALVE: PACEMAKER: MEASUREMENTS (cm) DIASTOLIC (NORMALS) SYSTOLIC (NORMALS) IVSd 1.3 (0.6-1.2) LA Diam 5.4 (1.9-4.0) LVEF 30-35% LVIDd 7.0 (3.5-5.7) LVIDs 5.5 (2.0-3.5) %FS 21% LVPWd 1.3 (0.6-1.2) Ao Diam 3.3 (2.0-3.7) 2 DIMENSIONAL ASSESSMENT: RIGHT ATRIUM: DILATED LEFT ATRIUM: DILATED RIGHT VENTRICLE: NORMAL LEFT VENTRICLE: DILATED TRICUSPID VALVE: NORMAL MITRAL VALVE: NORMAL PULMONIC VALVE: NORMAL AORTIC VALVE: SCLEROSIS PERICARDIAL EFFUSION: NONE AORTIC ROOT: NORMAL LEFT VENTRICULAR WALL MOTION: GLOBAL HYPOKINESIS. DOPPLER/COLOR FLOW: NO AORTIC STENOSIS. MILD AORTIC REGURGITATION. MODERATE MITRAL REGURGITATION. COMMENTS: DEPRESSED LEFT VENTRICULAR EJECTION FRACTION. DILATED LEFT ATRIUM, RIGHT ATRIUM AND LEFT VENTRICLE. AORTIC SCLEROSIS WITH NO AORTIC STENOSIS. MILD AORTIC REGURGITATION. MODERATE MITRAL REGURGITATION. TECHNOLOGIST: Sadia LOPEZ
[2019-07-24] MEDS: IPRATROPIUM BROM 0.5MG/2.5ML NEB PRN (13:23)
[2019-07-24] MEDS: ALBUTEROL 2.5 MG/3 ML NEB SOL NEB PRN (13:23)
--- NOTE | 2019-07-24 15:00 | RAD REPORT ---
EXAM DESCRIPTION: US - Abdomen Exam Complete - 07/24/2019 2:50 pm CLINICAL HISTORY: Abdominal pain COMPARISON: none FINDINGS: The liver has an increased echotexture. The liver has a nodular contour. Hepatopetal flow Limited evaluation of the gallbladder. The gallbladder is contracted. The biliary tree is normal mary ann indira. The pancreas was not well visualized secondary overlying bowel gas but appears grossly normal. The right kidney measures 12 centimeters with a normal echotexture. The left kidney measures 11 centimeters with a normal echotexture. Small calculus The spleen measures 10 centimeters. Limited evaluation the abdominal aorta inferior vena cava secondary to overlying bowel gas Small amount of ascites IMPRESSION: Cirrhosis with small amount of ascites Small nonobstructing left renal calculus
[2019-07-25 05:55] LABS: Absolute Lymphocytes (CBC) 2.6 K/uL (0.7-4.9); Basophils % 0.6 % (0-1.3); Hematocrit 37.2 % (39.6-49.0); Lymphocytes % 20.4 % (15.3-44.8); MPV 11.7 fL (7.6-11.3); RBC Red Blood Cell Count 3.96 M/uL (4.33-5.43)
[2019-07-25 06:04] LABS: Bilirubin Total 1.1 mg/dL (0.2-1.0); Protein, Total 5.7 g/dL (6.4-8.2)
[2019-07-25] MEDS ORDERED: FUROSEMIDE 40 MG/4 ML VIAL IV ONE (06:21)
[2019-07-25] MEDS: INSULIN -REGULAR HUMAN 50 UNIT/0.5 ML ML SQ SCH ×4 (08:15→21:00)
[2019-07-25] MEDS: LACTULOSE 20 GM/30 ML UCUP PO SCH ×2 (08:16→21:29)
[2019-07-25] MEDS: CARVEDILOL 3.125 MG TAB PO SCH (08:17)
[2019-07-25] MEDS: DIGOXIN 0.25 MG TABLET PO SCH (08:17)
[2019-07-25] MEDS: predniSONE 10 MG TAB PO SCH ×2 (08:17→21:31)
[2019-07-25] MEDS: BUSPIRONE HCL 5 MG TABLET PO SCH ×3 (08:17→21:33)
[2019-07-25] MEDS: SPIRONOLACTONE 25 MG TABLET PO SCH (08:17)
[2019-07-25] MEDS: FUROSEMIDE 40 MG/4 ML VIAL IV SCH ×2 (08:18→16:18)
--- NOTE | 2019-07-25 10:22 | PN ---
Date of Progress Note: 07/24/2019 Subjective: Mr. Dhaliwal was seen on 07/23/2019 for acute exacerbation of chronic congestive heart dipak sixto. An echocardiogram, which was done yesterday, showed an ejection fraction of 30% to 35% with mo derate mitral regurgitation. Today, he is lethargic. He has hepatic encephalopathy. He has COPD, d rug abuse history, lymphedema, diabetes. I agree with his present regimen with IV Lasix, continuing the Coreg, digoxin, and Aldactone. I agree with lactulose. Hopefully, he will improve enough to go home in the next day or 2. As mentioned in my consultation, patient improved eventually and becomes compliant. He really should have a catheterization, followup echocardiography, and consideration for defibrillator and pacemaker down the road. I would like him to get on Entresto eventually, but he h ad stated that he could not afford that at this point. COSME/DAVID Voice ID: [id number] Report ID: [id number]
--- NOTE | 2019-07-25 10:26 | PN ---
Date of Progress Note: 07/25/2019 Subjective: Mr. Dhaliwal has been in the hospital since 07/23/2019. He has been followed for acute on chronic congestive heart failure, hepatic encephalopathy, COPD, drug abuse, lymphedema, and diabetes . Yesterday, he was rather lethargic. He was started on lactulose twice a day by Dr. Nicole. He imp roved from a mental status standpoint. He is not as lethargic. He still has significant edema in th e legs, probably from a combination of chronic venous insufficiency as well as congestive heart failu re. He is still unable to lay flat. I will continue his IV Lasix. Continue his other regimen. May be increase his carvedilol as well as Aldactone as well. We will continue to follow him. COSME/MODL Voice ID: [id number] Report ID: [id number]
--- NOTE | 2019-07-25 10:46 | P.PN ---
Subjective Date of Service: 07/25/19 Primary Care Provider: None - Does not follow up with PCP Chief Complaint: SOB Patient seen and examined at bedside with RN. Chart reviewed. Case discussed with cardiology at this time. Patient Doing much better today. AAOx3. Denies having any fever chills nausea vomiting Review of Systems 10-point ROS is otherwise unremarkable Physical Examination - Vital Signs Temperature: 98.0 F Blood Pressure: 135/71 Pulse: 94 Respirations: 20 Pulse Ox (%): 98 - Physical Exam General: Alert, In no apparent distress HEENT: Atraumatic, PERRLA, EOMI Neck: Supple, JVD not distended Respiratory: Normal air movement, Crackles/rales, Expiratory wheezes, Inspiratory wheezes Cardiovascular: Regular rate/rhythm, Normal S1 S2 Gastrointestinal: Normal bowel sounds, No tenderness Musculoskeletal: No tenderness Integumentary: No rashes Neurological: Normal speech, Normal tone, Normal affect Lymphatics: No axilla or inguinal lymphadenopathy - Studies Laboratory Data (last 24 hrs) 07/25/19 05:19: Sodium 144, Potassium 4.0, BUN 21 H, Creatinine 1.01, Glucose 237 H, Total Bilirubin 1.1 H, AST 123 H, ALT 91 H, Alkaline Phosphatase 101 07/25/19 05:19: WBC 12.8 H D, Hgb 13.0 L, Hct 37.2 L, Plt Count 102 L Microbiology Data (last 24 hrs): 07/23/19 12:12 Clean Catch Urine [place] Count - Final 07/23/19 12:12 Clean Catch Urine - Final No growth. 07/23/19 10:30 Blood - Blood Anaerobic Blood Culture - Final Medications List Reviewed: Yes Assessment And Plan - Current Problems (Diagnosis) (1) CHF (congestive heart failure) Current Visit: Yes Status: Acute Plan: CHF exacerbation due to noncompliance with medication. -pt has been out of his med for over 1 week -currently on IV lasix 80mg BID will decrease now to 40mg BID -restarted Digoxin, Coreg and spironolactone. Increased Dose of Coreg to 12.5 -Cardiology consulted, recommendations appreciated -Fluid restriction and Low NA diet Qualifiers: Heart failure type: systolic Heart failure chronicity: acute on chronic Qualified Code(s): I50.23 - Acute on chronic systolic (congestive) heart failure (2) Hepatic encephalopathy Current Visit: Yes Status: Acute Plan: Patient currently with lethargy and somnolence -ABGs are within normal limits -elevated ammonia level along with elevated LFTs -LFTs improving Now -started on lactulose 30 mg t.i.d. Today switched to BID (3) COPD (chronic obstructive pulmonary disease) Current Visit: Yes Status: Acute Plan: COPD exacerbation 2.2 to Possible PNA vs Fluid overload -Duonebs, Steroids -Will wean off the Oxygen at this time -Does use o2 PRN at home Qualifiers: COPD type: COPD with acute lower respiratory infection Qualified Code(s): J44.0 - Chronic obstructive pulmonary disease with acute lower respiratory infection (4) Drug abuse Current Visit: Yes Status: Acute Plan: Drug Abuse -(+) for Methamphetamines (5) Chronic acquired lymphedema Current Visit: No Status: Chronic (6) DM2 (diabetes mellitus, type 2) Current Visit: No Status: Chronic Qualifiers: Diabetes mellitus buttermaker continuous churn insulin use: with long-term use Diabetes mellitus complication status: without complication Qualified Code(s): E11.9 - Type 2 diabetes mellitus without complications; 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
[2019-07-25] MEDS: NICOTINE 21 MG/PAT TD SCH (11:46)
[2019-07-25] MEDS: CARVEDILOL 12.5 MG TAB PO SCH (21:30)
[2019-07-25] MEDS ORDERED: ALPRAZOLAM 0.5 MG TABLET PO ONE (23:55)
[2019-07-26 06:09] LABS: Absolute Lymphocytes (CBC) 1.8 K/uL (0.7-4.9); Basophils % 1.2 % (0-1.3); Hematocrit 38.5 % (39.6-49.0); Lymphocytes % 26.7 % (15.3-44.8); MPV 11.8 fL (7.6-11.3); RBC Red Blood Cell Count 4.07 M/uL (4.33-5.43)
[2019-07-26 06:44] LABS: Potassium 3.8 mmol/L (3.5-5.1)
[2019-07-26 06:45] LABS: Albumin 2.1 g/dL (3.4-5.0); Protein, Total 5.8 g/dL (6.4-8.2)
--- NOTE | 2019-07-26 08:56 | RAD REPORT ---
EXAM DESCRIPTION: RAD - Chest Single View - 07/26/2019 6:30 am CLINICAL HISTORY: CHF Chest pain. COMPARISON: Chest Single View dated 07/23/2019; Chest Single View dated 05/03/2019 FINDINGS: Portable technique limits examination quality. Mild pulmonary edema is present. Airspace opacity in the right lung base suspicious for developing in filtrate/ pneumonia. Small bilateral pleural effusions also seen. Heart is moderately enlarged in siz e. No displaced fractures. IMPRESSION: Mild worsening in lung aeration since 07/23/2019.
[2019-07-26] MEDS: NICOTINE 21 MG/PAT TD SCH (09:00)
[2019-07-26] MEDS: DIGOXIN 0.25 MG TABLET PO SCH (09:09)
[2019-07-26] MEDS: SPIRONOLACTONE 25 MG TABLET PO SCH (09:09)
[2019-07-26] MEDS: INSULIN -REGULAR HUMAN 50 UNIT/0.5 ML ML SQ SCH ×4 (09:10→20:32)
[2019-07-26] MEDS: LACTULOSE 20 GM/30 ML UCUP PO SCH ×2 (09:10→20:31)
[2019-07-26] MEDS: predniSONE 10 MG TAB PO SCH ×2 (09:11→20:31)
[2019-07-26] MEDS: CARVEDILOL 12.5 MG TAB PO SCH ×2 (09:11→20:31)
[2019-07-26] MEDS: BUSPIRONE HCL 5 MG TABLET PO SCH ×3 (09:11→20:32)
[2019-07-26] MEDS: FUROSEMIDE 40 MG/4 ML VIAL IV SCH ×2 (09:12→17:09)
[2019-07-26] MEDS ORDERED: NICOTINE 21 MG/PAT TD SCH (09:45)
[2019-07-26] MEDS ORDERED: FUROSEMIDE 40 MG/4 ML VIAL IV ONE (10:16)
[2019-07-26] MEDS ORDERED: ALBUMIN HUMAN 25% 100 ML IV ONE (10:30)
--- NOTE | 2019-07-26 11:04 | P.PN ---
Subjective Date of Service: 07/26/19 Primary Care Provider: None - Does not follow up with PCP Chief Complaint: SOB Patient seen and examined at bedside with RN. Chart reviewed. Case discussed with cardiology at this time. Today is lethargic. Does appear to have more swelling and is upset today due to being awake. Denies having any fever chills nausea vomiting Review of Systems 10-point ROS is otherwise unremarkable Physical Examination - Vital Signs Temperature: 97.8 F Blood Pressure: 131/74 Pulse: 94 Respirations: 16 Pulse Ox (%): 96 - Physical Exam General: In no apparent distress, Other (Lethargic) HEENT: Atraumatic, PERRLA, EOMI Neck: Supple, JVD not distended Respiratory: Clear to auscultation bilaterally, Normal air movement Cardiovascular: Regular rate/rhythm, Normal S1 S2 Gastrointestinal: Normal bowel sounds, No tenderness Musculoskeletal: Swelling (2+ BL LE and UE) Integumentary: No rashes Neurological: Normal speech, Normal tone, Normal affect Lymphatics: No axilla or inguinal lymphadenopathy - Studies Microbiology Data (last 24 hrs): 07/23/19 12:12 Clean Catch Urine [place] Count - Final 07/23/19 12:12 Clean Catch Urine - Final No growth. Medications List Reviewed: Yes Assessment And Plan - Current Problems (Diagnosis) (1) CHF (congestive heart failure) Current Visit: Yes Status: Acute Plan: CHF exacerbation due to noncompliance with medication. -pt has been out of his med for over 1 week -Lasix was decreased to 40mg yesterday, But pt appears to have increased swelling so will switch to 80mg BID -Currently on Digoxin, Coreg and spironolactone. Increased Dose of Coreg and spironolactone -Cardiology consulted, recommendations appreciated -Fluid restriction and Low NA diet Qualifiers: Heart failure type: systolic Heart failure chronicity: acute on chronic Qualified Code(s): I50.23 - Acute on chronic systolic (congestive) heart failure (2) Hepatic encephalopathy Current Visit: Yes Status: Acute Plan: Patient currently with lethargy and somnolence -ABGs are within normal limits -LFTs Elevated today -started on lactulose 30 mg BID (3) COPD (chronic obstructive pulmonary disease) Current Visit: Yes Status: Acute Plan: COPD exacerbation 2.2 to Possible PNA vs Fluid overload -Duonebs, Steroids -Will wean off the Oxygen at this time -Does use o2 PRN at home Qualifiers: COPD type: COPD with acute lower respiratory infection Qualified Code(s): J44.0 - Chronic obstructive pulmonary disease with acute lower respiratory infection (4) Drug abuse Current Visit: Yes Status: Acute Plan: Drug Abuse -(+) for Methamphetamines (5) Chronic acquired lymphedema Current Visit: No Status: Chronic (6) DM2 (diabetes mellitus, type 2) Current Visit: No Status: Chronic Qualifiers: Diabetes mellitus snf insulin use: with snf use Diabetes mellitus complication status: without complication Qualified Code(s): E11.9 - Type 2 diabetes mellitus without complications; Z79.4 - prison (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
[2019-07-26] MEDS ORDERED: TRAZODONE 50 MG TABLET PO SCH (21:00)
[2019-07-27 05:27] LABS: Absolute Lymphocytes (CBC) 1.7 K/uL (0.7-4.9); Basophils % 1.1 % (0-1.3); Hematocrit 34.5 % (39.6-49.0); Lymphocytes % 33.7 % (15.3-44.8); MPV 11.9 fL (7.6-11.3); RBC Red Blood Cell Count 3.66 M/uL (4.33-5.43)
[2019-07-27 05:48] LABS: Albumin 2.2 g/dL (3.4-5.0); Potassium 3.5 mmol/L (3.5-5.1); Protein, Total 5.5 g/dL (6.4-8.2)
[2019-07-27] MEDS: INSULIN -REGULAR HUMAN 50 UNIT/0.5 ML ML SQ SCH ×4 (08:05→20:35)
[2019-07-27] MEDS: LACTULOSE 20 GM/30 ML UCUP PO SCH ×2 (08:06→20:35)
[2019-07-27] MEDS: CARVEDILOL 12.5 MG TAB PO SCH ×2 (08:06→20:36)
[2019-07-27] MEDS: DIGOXIN 0.25 MG TABLET PO SCH (08:07)
[2019-07-27] MEDS: FUROSEMIDE 40 MG/4 ML VIAL IV SCH ×2 (08:07→16:50)
[2019-07-27] MEDS: predniSONE 10 MG TAB PO SCH (08:07)
[2019-07-27] MEDS: SPIRONOLACTONE 25 MG TABLET PO SCH (08:07)
[2019-07-27] MEDS: BUSPIRONE HCL 5 MG TABLET PO SCH ×3 (08:08→20:35)
[2019-07-27] MEDS: NICOTINE 21 MG/PAT TD SCH (08:08)
[2019-07-27 08:38] LABS: Blood Morphology Comment NOT SEEN (NOT SEEN); Platelet Estimate DECR; Urine White Blood Cell Casts OK
--- NOTE | 2019-07-27 10:06 | P.PN ---
Subjective Date of Service: 07/27/19 (Hospitalist) Primary Care Provider: None - Does not follow up with PCP Chief Complaint: Congestive heart failure Subjective: No new changes Patient's condition is stable no change he is improving the eating and drinking little agitated vital signs stable Review of Systems is unable to be obtained Physical Examination - Vital Signs Temperature: 98 F Blood Pressure: 135/68 Pulse: 82 Respirations: 20 Pulse Ox (%): 97 - Physical Exam General: Alert, Mild distress Neck: Supple Respiratory: Clear to auscultation bilaterally Cardiovascular: Regular rate/rhythm, Normal S1 S2, Edema (2+ edema) Gastrointestinal: Normal bowel sounds, Soft and benign - Studies Medications List Reviewed: Yes Assessment & Plan - Problems (Diagnosis) (1) CHF (congestive heart failure) Current Visit: Yes Status: Acute Plan: Patient admitted with congestive heart failure there is no evidence of sepsis blood gases satisfactory normal white count patient is on spironolactone and Lasix abnormal liver function tests patient has COPD chronic lymphedema patient has cirrhosis of the liver denies alcohol abuse patient is hep C positive hepatitis profile ordered patient admitted with mild herpetic encephalopathy Qualifiers: Heart failure type: systolic Heart failure chronicity: acute on chronic Qualified Code(s): I50.23 - Acute on chronic systolic (congestive) heart failure
[2019-07-27] MEDS: IPRATROPIUM BROM 0.5MG/2.5ML NEB PRN ×2 (16:00→20:10)
[2019-07-27] MEDS: ALBUTEROL 2.5 MG/3 ML NEB SOL NEB PRN (16:00)
[2019-07-27] MEDS: ARFORMOTEROL TARTRATE 15 MCG/2 ML VIAL.NEB NEB SCH (20:10)
--- NOTE | 2019-07-28 00:18 | PN ---
Date of Progress Note: 07/26/2019 Mr. Dhaliwal has acute on chronic systolic congestive heart failure, hepatic encephalopathy. Hepatitis panel is pending. Continues to have some significant mental status changes from being somnolent, le thargic to awake. When he is awake, he does not complain of any chest pain, but continues to have so me shortness of breath on exertion, continues to have some edema. His Lasix has been cut down to p.o ., but he started to have more edema and now he is back on higher dose of Lasix 80 b.i.d. He is on a higher dose of Coreg and lisinopril. Mr. Dhaliwal represents a significant challenge with his hepatic encephalopathy, noncompliance, hepatitis, systolic congestive heart failure. It would be very ideal for him to improve from a mental status standpoint and get an aggressive cardiac workup down the dick d including catheterization and possible defibrillator and pacemaker down the road. We just have to watch and see how he does. COSME/DAVID Voice ID: [id number] Report ID: [id number]
[2019-07-28] MEDS: ALBUTEROL 2.5 MG/3 ML NEB SOL NEB PRN (06:30)
[2019-07-28] MEDS: IPRATROPIUM BROM 0.5MG/2.5ML NEB PRN (06:30)
[2019-07-28] MEDS: ARFORMOTEROL TARTRATE 15 MCG/2 ML VIAL.NEB NEB SCH ×2 (06:30→08:00)
[2019-07-28] MEDS: INSULIN -REGULAR HUMAN 50 UNIT/0.5 ML ML SQ SCH ×2 (07:30→11:30)
[2019-07-28] MEDS: SPIRONOLACTONE 25 MG TABLET PO SCH (07:56)
[2019-07-28] MEDS: DIGOXIN 0.25 MG TABLET PO SCH (07:56)
[2019-07-28 07:57] LABS: Albumin 2.1 g/dL (3.4-5.0); Bilirubin Total 1.1 mg/dL (0.2-1.0); Potassium 3.6 mmol/L (3.5-5.1); Protein, Total 5.5 g/dL (6.4-8.2)
[2019-07-28] MEDS: BUSPIRONE HCL 5 MG TABLET PO SCH ×2 (07:57→13:00)
[2019-07-28] MEDS: FUROSEMIDE 40 MG/4 ML VIAL IV SCH (07:57)
[2019-07-28] MEDS: CARVEDILOL 12.5 MG TAB PO SCH (07:57)
[2019-07-28] MEDS: LACTULOSE 20 GM/30 ML UCUP PO SCH (07:58)
[2019-07-28] MEDS: NICOTINE 21 MG/PAT TD SCH (07:58)
--- NOTE | 2019-07-28 10:23 | P.DS ---
Admission Date: 07/25/19 Discharge Date: 07/28/19 Primary Care Provider: None - Does not follow up with PCP Disposition: ROUTINE DISCHARGE Discharge Condition: GOOD Reason for Admission: Congestive heart failure, hepatic encephalopathy COPD - Problems (1) CHF (congestive heart failure) Current Visit: Yes Status: Acute Qualifiers: Heart failure type: systolic Heart failure chronicity: acute on chronic Qualified Code(s): I50.23 - Acute on chronic systolic (congestive) heart failure Brief History of Present Illness: Patient is 54 years of age admitted with altered mental status heart failure diagnosis of COPD congestive heart failure and hepatic encephalopathy Hospital Course: Patient did well he was aggressively diuresed the time of discharge alert oriented responsive cooperative vital signs all stable oxygen a norman satisfactory ENT normal neck numbers masses chest clear cardiovascular system os sounds normal extremities minimal edema labs reviewed patient is to remain on the same dose of Lasix spironolactone increase to 50 mg daily and I have also added some lactulose there is no evidence of sepsis Vital Signs/Physical Exam: Temp Pulse Resp BP Pulse Ox 97.3 F 77 16 135/67 100 07/28/19 08:00 07/28/19 08:00 07/28/19 08:00 07/28/19 08:00 07/28/19 08:00 Laboratory Data at Discharge: WBC 5.0 K/uL (4.3-10.9) D 07/27/19 04:30 Hgb 11.5 g/dL (13.6-17.9) L 07/27/19 04:30 Hct 34.5 % (39.6-49.0) L 07/27/19 04:30 Plt Count 88 K/uL (152-406) L 07/27/19 04:30 PT 15.2 SECONDS (9.5-12.5) H 07/23/19 11:30 INR 1.30 07/23/19 11:30 Sodium 139 mmol/L (136-145) 07/28/19 05:44 Potassium 3.6 mmol/L (3.5-5.1) 07/28/19 05:44 BUN 18 mg/dL (7-18) 07/28/19 05:44 Creatinine 1.07 mg/dL (0.55-1.3) 07/28/19 05:44 Glucose 152 mg/dL (74-106) H 07/28/19 05:44 Magnesium 1.6 mg/dL (1.8-2.4) L 07/23/19 10:30 Total Bilirubin 1.1 mg/dL (0.2-1.0) H 07/28/19 05:44 AST 96 U/L (15-37) H 07/28/19 05:44 ALT 91 U/L (12-78) H 07/28/19 05:44 Alkaline Phosphatase 109 U/L (45-117) 07/28/19 05:44 Lipase 147 U/L (73-393) 07/23/19 10:30 Home Medications: Albuterol Sulfate [Proair Respiclick] 90 mcg IH Q4HR 05/04/19 Buspirone HCl [Buspar] 10 mg PO TID 05/04/19 Carvedilol 3.125 mg PO BID 05/04/19 Digoxin [Lanoxin*] 0.25 mg PO DAILY 05/04/19 Furosemide 40 mg PO BID 05/04/19 Lisinopril [Prinivil*] 5 mg PO DAILY 05/04/19 Tiotropium [place] [Spiriva Respimat] 4 gm IH DAILY 05/04/19 Lactulose [Cephulac*] 30 ml PO BID 30 Days 07/28/19 Spironolactone [Aldactone*] 50 mg PO DAILY #30 tab 07/28/19 New Medications: Lactulose [Cephulac*] 30 ml PO BID 30 Days Spironolactone [Aldactone*] 50 mg PO DAILY #30 tab Patient Discharge Instructions: Fluid restriction 1200 cc a day to follow up with his primary care doctor in 1 or 2 weeks Diet: Low sodium Activity: Ad darrell
[2019-07-28 11:51] VITALS: O2SAT 97
[2019-07-28 12:35] VITALS: BP 123/65; TEMP 98.1
[2019-07-28] MEDS ORDERED: FUROSEMIDE 40 MG TABLET PO SCH (17:00)
[2019-07-30 03:44] LABS: HBsAG Nonreactive (Nonreactive)
[2019-07-30 20:02] LABS: Hep C Virus RNA (PCR)log 5.02 log IU/mL
== END 2019-07-28 16:00 | disposition home or self-care (01) | DRG 291 ==
LOC: ER 10:26 → ERHOLD 12:42 → 4TH 14:39 → OBSVTOIN 07-25 08:35
PROVIDERS: ADMIT Family Medicine; ATTEND Family Medicine
DX: I11.0 Hypertensive heart disease with heart failure (principal); J18.9 Pneumonia, unspecified organism; J44.0 Chronic obstructive pulmonary disease with (acute) lower respiratory infection; J44.1 Chronic obstructive pulmonary disease with (acute) exacerbation; I50.23 Acute on chronic systolic (congestive) heart failure; F17.210 Nicotine dependence, cigarettes, uncomplicated; Z91.14 Patient's other noncompliance with medication regimen; F15.10 Other stimulant abuse, uncomplicated; I89.0 Lymphedema, not elsewhere classified; E11.9 Type 2 diabetes mellitus without complications; K72.90 Hepatic failure, unspecified without coma; I87.2 Venous insufficiency (chronic) (peripheral)
CPT/HCPCS: 36415; 71045; 76700; 80048; 80053; 80074; 80076; 80162; 81003; 82140; 82805; 82962; 83605; 83690; 83735; 83880; 84145; 84484; 85025; 85610; 87040; 87086; 87088; 87522; 93005; 93306; 94640; 96365; 96367; 96375; 97110; 97116; 97161; 97530; 99285; G0378; J0456; J1650; J1940; J2543; J2930; J3475; J7512; J7605; P9047

== ENCOUNTER 2019-09-10 17:48 | Inpatient (IN) | payer OTHER ==
[2019-09-10 18:33] LABS: Protime INR 1.37
[2019-09-10 18:42] LABS: Absolute Lymphocytes (CBC) 1.4 K/uL (0.7-4.9); Basophils % 0.9 % (0-1.3); Hematocrit 36.6 % (39.6-49.0); Lymphocytes % 22.4 % (15.3-44.8); MPV 10.5 fL (7.6-11.3); RBC Red Blood Cell Count 3.88 M/uL (4.33-5.43)
[2019-09-10 18:47] LABS: Arterial Blood Carboxyhemoglob 2.1 % (0-1.5); Blood Gas Oxyhemoglobin 96.8 % (94-97); Blood O2 Saturation 99.6 % (92-98.5)
[2019-09-10 18:52] LABS: Albumin 2.2 g/dL (3.4-5.0); Bilirubin Direct 0.8 mg/dL (0-0.2); Bilirubin Total 1.5 mg/dL (0.2-1.0); Potassium 3.3 mmol/L (3.5-5.1); Protein, Total 6.9 g/dL (6.4-8.2); Troponin (Emerg Dept Use Only) 0.13 ng/mL (0.0-0.045)
[2019-09-10] MEDS ORDERED: IPRATROPIUM BROM 0.5MG/2.5ML ONE (18:55)
[2019-09-10] MEDS ORDERED: ALBUTEROL 2.5 MG/3 ML NEB SOL ONE (18:55)
[2019-09-10] MEDS ORDERED: FUROSEMIDE 40 MG/4 ML VIAL ONE (19:57)
--- NOTE | 2019-09-10 20:13 | P.HP ---
Certification for Inpatient Patient admitted to: Inpatient With expected LOS: >2 Midnights Patient will require the following post-hospital care: Home Health Services Practitioner: I am a practitioner with admitting privileges, knowledge of patient current condition, hospital course, and medical plan of care. Services: Services provided to patient in accordance with Admission requirements found in Title 42 Section 412.3 of the Code of Federal Regulations Patient History Date of Service: 09/11/19 Reason for admission: Shortness of breath and increased leg swelling History of Present Illness: 54-year-old gentleman with a history of chronic systolic heart failure, most recent ejection fraction by echo is 30%, bilateral lower extremity lymphedema, coronary disease, hypertension and drug abuse, history of noncompliance to medical therapy presented to the emergency department with a complaint of progressive shortness of breath of about 4 days duration. He states that he ran out of his medications. He tried to get his medications today from the pharmacy but his truck broke down. He also reports abdominal distension. He reports occasional wheezing and cough productive of whitish sputum. No hemoptysis. In the ED, patient noted to be dyspneic. Chest x-ray demonstrated pulmonary vascular congestion pattern and reduced chest expansion. EKG showed right bundle branch block and nondiagnostic for ischemia. Troponin mildly elevated. He was placed on BiPAP for dyspnea, given a dose of IV Lasix and admitted for further management of CHF exacerbation. Allergies No Known Allergies Allergy (Unverified 05/04/19 02:56) Home Medications: Buspirone HCl [Buspar] 10 mg PO TID 05/04/19 Carvedilol 3.125 mg PO BID 05/04/19 Digoxin [Lanoxin*] 0.25 mg PO DAILY 05/04/19 Furosemide 40 mg PO BID 05/04/19 Lisinopril [Prinivil*] 5 mg PO DAILY 05/04/19 - Past Medical/Surgical History Diabetic: No -: HTN -: CHF -: COPD -: Bilateral leg lymphedema. - Family History Mother -: Other (see notes) Notes: epilepsy Father -: Other (see notes) Notes: alcoholic - Social History Smoking Status: Current every day smoker Alcohol use: No CD- Drugs: Yes Caffeine use: No Review of Systems Other: General: No fever, no malaise, no unintentional weight loss. Eyes: No eye discharge, CVS: No chest pain, no palpitation, no lightheadedness. GI: No abdominal pain, no nausea no vomit, no constipation, no diarrhea. Genitourinary: No dysuria, no urinary frequency, no incontinence, no hematuria. Musculoskeletal: No joint pains, no gait instability. Neurology: No headache, no asymmetric, weakness, no problem with swallowing. Except as documented, all other systems reviewed and negative. Physical Examination - Physical Exam General: Alert, Oriented x3, Cooperative, Moderate distress (Secondary to shortness of breath.) HEENT: Atraumatic, Normocephalic, PERRLA, Mucous membr. moist/pink Neck: Supple, JVD not distended, No Thyromegaly Respiratory: Diminished, Crackles/rales (Bibasilar rales), Expiratory wheezes ( Bilateral scattered wheezes) Cardiovascular: Regular rate/rhythm, Normal S1 S2, No murmurs, Edema (3+ bilateral lower extremity edema) Capillary refill: <2 Seconds Gastrointestinal: Normal bowel sounds, Soft and benign, Distended, Ascites Musculoskeletal: Swelling Integumentary: Other (Venostasis dermatitis) Neurological: Normal strength at 5/5 x4 extr, Cranial nerves 3-12 intact Lymphatics: Other (Bilateral lower extremity lymphedema) - Studies Laboratory Data (last 24 hrs) 09/10/19 18:15: PT 16.0 H, INR 1.37 09/10/19 18:15: WBC 6.4, Hgb 12.3 L, Hct 36.6 L, Plt Count 136 L 09/10/19 18:15: Sodium 140, Potassium 3.3 L, BUN 17, Creatinine 0.95, Glucose 141 H, Magnesium 2.0, Total Bilirubin 1.5 H, AST 95 H, ALT 53, Alkaline Phosphatase 94 Assessment and Plan - Problems (Diagnosis) (1) Acute on chronic systolic heart failure Current Visit: Yes Status: Acute (2) Anasarca Current Visit: Yes Status: Acute (3) Acute respiratory failure Current Visit: Yes Status: Acute (4) COPD exacerbation Current Visit: Yes Status: Acute (5) DM2 (diabetes mellitus, type 2) Current Visit: No Status: Chronic Qualifiers: Diabetes mellitus local intermodal truck driver insulin use: with local intermodal truck driver use Diabetes mellitus complication status: without complication Qualified Code(s): E11.9 - Type 2 diabetes mellitus without complications; Z79.4 - 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 12 hours BiPAP Continue home dose Coreg, digoxin, lisinopril, spironolactone. Abdominal ultrasound U.S. guided paracentesis Fluid restriction to 1500ml/day check Daily weight Strict Intake and output charting. Bronchodilators Will avoid steroids for now. Most recent echocardiogram was 2 months ago and reporting EF of 30%. Consult to social service for home health and assist with medication compliance issues. - Advance Directives Does patient have a Living Will: Yes Does patient have a Durable POA for Healthcare: Yes
--- NOTE | 2019-09-10 20:15 | RAD REPORT ---
EXAM DESCRIPTION: RAD - Chest Single View - 09/10/2019 6:27 pm CLINICAL HISTORY: Chest pain, shortness of breath COMPARISON: July 26 TECHNIQUE: AP portable chest image was obtained 1825 hours . FINDINGS: Lung volumes are very low. Atelectasis and pleural effusion findings are difficult to eval uate. In the mid and upper lung chakraborty no peripheral consolidation or mass. Overall lung markings do not appear substantially different from the comparison. The Heart size is stable. Trachea is midline. No pneumothorax. No acute bony abnormality seen. No acute aortic findings suspected. IMPRESSION: Chest exam is very limited due to shallow inspiration, body habitus and portable techniq ue. Atelectasis and/ or infiltrate in either lung base, particularly on the right cannot be excluded. A significant failure or volume overload is doubtful. Mild forms cannot be excluded.
--- NOTE | 2019-09-10 20:24 | EDPHYS ---
Physician Documentation [facility] Name: Bob Santana Age: 54 yrs Sex: Male : 1965 Arrival Date: 09/10/2019 Time: 17:43 Bed 3 Private MD: ED Physician Harry Day HPI: 09/10 18:34 This 54 yrs old Male presents to ER via EMS with complaints of Chest Pain > tw4 28 y/o, Shortness Of Breath. 18:34 The patient or guardian reports chest pain that is located primarily in the anterior tw4 chest wall. Onset: today. The pain does not radiate. Associated signs and symptoms: The patient has no apparent associated signs or symptoms. The chest pain is described as dull. Duration: The patient or guardian reports a single episode. Modifying factors: The symptoms are alleviated by nothing. the symptoms are aggravated by nothing. Severity of pain: At its worst the pain was mild. The patient has not experienced similar symptoms in the past. Historical: - Allergies: 17:55 No Known Allergies; sg - Home Meds: 17:55 buspirone 10 mg Oral tab 1 tab 3 times per day [Active]; carvedilol 3.125 mg Oral tab 1 sg tab 2 times per day [Active]; digoxin 250 mcg Oral tab 1 tab once daily [Active]; furosemide 40 mg Oral tab 1 tab 2 times per day [Active]; lisinopril 5 mg Oral tab 1 tab once daily [Active]; spironolactone 25 mg Oral tab 1 tab once daily [Active]; - PMHx: 17:55 cardiomegaly; CHF; COPD; Hypertension; sg 18:09 Hepatitis; sg - Immunization history:: Adult Immunizations not up to date. - Social history:: Smoking status: Patient/guardian denies using tobacco. - Ebola Screening: : Patient negative for fever greater than or equal to 101.5 degrees Fahrenheit, and additional compatible Ebola Virus Disease symptoms Patient denies exposure to infectious person Patient denies travel to an Ebola-affected area in the 21 days before illness onset No symptoms or risks identified at this time. ROS: 18:34 Constitutional: Negative for fever, chills, and weight loss, Respiratory: Negative for tw4 shortness of breath, cough, wheezing, and pleuritic chest pain, Abdomen/GI: Negative for abdominal pain, nausea, vomiting, diarrhea, and constipation, Back: Negative for injury and pain, MS/Extremity: Negative for injury and deformity, Skin: Negative for injury, rash, and discoloration. 18:34 Cardiovascular: Positive for chest pain, Negative for edema, orthopnea, palpitations, paroxysmal nocturnal dyspnea. Exam: 18:34 Constitutional: This is a well developed, well nourished patient who is awake, alert, tw4 and in no acute distress. Head/Face: Normocephalic, atraumatic. Chest/axilla: Normal chest wall appearance and motion. Nontender with no deformity. No lesions are appreciated. Cardiovascular: Regular rate and rhythm with a normal S1 and S2. No gallops, murmurs, or rubs. Normal PMI, no JVD. No pulse deficits. Respiratory: Lungs have equal breath sounds bilaterally, clear to auscultation and percussion. No rales, rhonchi or wheezes noted. No increased work of breathing, no retractions or nasal flaring. Abdomen/GI: Soft, non-tender, with normal bowel sounds. No distension or tympany. No guarding or rebound. No evidence of tenderness throughout. Back: No spinal tenderness. No costovertebral tenderness. Full range of motion. MS/ Extremity: Pulses equal, no cyanosis. Neurovascular intact. Full, normal range of motion. Neuro: Awake and alert, GCS 15, oriented to person, place, time, and situation. Cranial nerves II-XII grossly intact. Motor strength 5/5 in all extremities. Sensory grossly intact. Cerebellar exam normal. Normal gait. Vital Signs: 17:44 BP 138 / 83; Pulse 119; Resp 36; Temp 97.6; Pulse Ox 98% on R/A; sg 18:40 BP 134 / 80; Pulse 108; Resp 34; Pulse Ox 98% on 30% BiPAP; sg 21:13 BP 144 / 88; Pulse 112; Resp 16; Pulse Ox 100% ; ao MDM: 17:48 Patient medically screened. 09/10 17:49 Order name: Basic Metabolic Panel; Complete Time: 18:53 09/10 18:53 Interpretation: Normal except: K 3.3; GFR 82; GLUC 141. 09/10 17:49 Order name: CBC with Diff; Complete Time: 18:53 09/10 18:53 Interpretation: Normal except: RBC 3.88; HGB 12.3; HCT 36.6; RDW 16.2; PLT 136; tw4 EOSINOPHIL % 4.5. 09/10 17:49 Order name: LFT's; Complete Time: 18:53 tw4 09/10 18:53 Interpretation: Normal except: AST 95; BILIT 1.5; BILID 0.8; ALB 2.2; GLOB 4.7; A/G 0.5.tw4 09/10 17:49 Order name: Magnesium; Complete Time: 18:53 tw4 09/10 18:54 Interpretation: Within normal limits: MG 2.0. tw4 09/10 17:49 Order name: NT PRO-BNP; Complete Time: 18:53 tw4 09/10 18:53 Interpretation: Abnormal: NT PRO-BNP 6921. tw4 09/10 17:49 Order name: PT-INR; Complete Time: 18:53 tw4 09/10 18:54 Interpretation: Normal except: PT 16.0. tw4 09/10 17:49 Order name: Troponin (emerg Dept Use Only); Complete Time: 18:53 tw4 09/10 18:54 Interpretation: Abnormal: TROPED 0.13. tw4 09/10 17:49 Order name: XRAY Chest (1 view) tw4 09/10 17:49 Order name: EKG; Complete Time: 17:50 tw4 09/10 17:49 Order name: Cardiac monitoring; Complete Time: 19:24 tw4 09/10 18:36 Order name: ABG; Complete Time: 19:44 4 09/10 20:24 Order name: Social Service Consult EDMS 09/10 17:49 Order name: EKG - Nurse/Tech; Complete Time: 19:24 tw4 09/10 17:49 Order name: IV Saline Lock; Complete Time: 19:24 tw4 09/10 17:49 Order name: Labs collected and sent; Complete Time: 19:24 tw4 09/10 17:49 Order name: O2 Per Protocol; Complete Time: 19:24 tw4 09/10 17:49 Order name: O2 Sat Monitoring; Complete Time: 19:24 tw4 EC:47 Rate is 118 beats/min. Rhythm is regular with Right bundle branch block. ND interval is tw4 normal. QRS interval is prolonged. QT interval is normal. No Q waves. No ST changes noted. Clinical impression: Abnormal EKG without significant change. Interpreted by me. Reviewed by me. Administered Medications: 18:55 Drug: DuoNeb (3:1) (2.5 mg - 0.5 mg) 3 ml {Note: administered by Jeanne EMERGENCY DISPATCHER.} Route: sv Nebulizer; 21:13 Follow up: Response: No adverse reaction ao 20:01 Drug: Lasix 40 mg Route: IVP; Site: right antecubital; ao 21:13 Follow up: Response: No adverse reaction ao Disposition: 09/10/19 20:23 Hospitalization ordered by Chivo Monique for Inpatient Admission. Preliminary diagnosis are Unspecified combined systolic (congestive) and diastolic (congestive) heart failure, Hypoxemia, Ascites. - Bed requested for Telemetry/MedSurg (Inpatient). - Status is Inpatient Admission. ao - Condition is Stable. - Problem is an ongoing problem. - Symptoms are unchanged. UTI on Admission? No Signatures: Dispatcher [employer] EDIA Greer Stearns RN RN sv Webb, Martha RN Abram Christopher RN RN sg Ortiz, Alex RN Harry Sheriff MD MD tw4 Corrections: (The following items were deleted from the chart) 20:33 20:23 Hospitalization Ordered by Chivo Monique for Inpatient Admission. Preliminary mw diagnosis is Unspecified combined systolic (congestive) and diastolic (congestive) heart failure; Hypoxemia; Ascites. Bed requested for Telemetry/MedSurg (Inpatient). Status is Inpatient Admission. Condition is Stable. Problem is an ongoing problem. Symptoms are unchanged. UTI on Admission? No. tw4 22:36 20:33 09/10/2019 20:23 Hospitalization Ordered by Chivo Monique for Inpatient ao Admission. Preliminary diagnosis is Unspecified combined systolic (congestive) and diastolic (congestive) heart failure; Hypoxemia; Ascites. Bed requested for Telemetry/MedSurg (Inpatient). Status is Inpatient Admission. Condition is Stable. Problem is an ongoing problem. Symptoms are unchanged. UTI on Admission? No. mw
--- NOTE | 2019-09-10 20:24 | ER ---
Nurse's Notes [facility] Name: Bob Santana Age: 54 yrs Sex: Male : 1965 Arrival Date: 09/10/2019 Time: 17:43 Bed 3 Private MD: Diagnosis: Unspecified combined systolic (congestive) and diastolic (congestive) heart failure;Hypoxemia;Ascites Presentation: 09/10 18:04 Presenting complaint: EMS states: pt complaining of shortness of breath for 1-2 days, sg worsening today, reports has been out of his regular medications for a couple weeks, denies fever/N/V/D at this time. Transition of care: patient was not received from another setting of care. Onset of symptoms was September 10, 2019. Risk Assessment: Do you want to hurt yourself or someone else? Patient reports no desire to harm self or others. Initial Sepsis Screen: Does the patient meet any 2 criteria? RR > 20 per min. HR > 90 bpm. Yes Does the patient have a suspected source of infection? No. Patient's initial sepsis screen is negative. Care prior to arrival: Med neb given. Missed IV attempt x2. 18:04 Method Of Arrival: EMS: [facility] sg 18:04 Acuity: KISHAN 2 sg Triage Assessment: 17:45 General: Appears distressed, obese, unkempt, well developed, well nourished, Behavior sg is agitated, anxious, restless. Pain: Complains of pain in chest Quality of pain is described as pressure, sharp. EENT: Nares are clear bilaterally Oral mucosa is moist. Throat is clear. Neuro: Level of Consciousness is awake, alert, obeys commands, Oriented to person, place, time, Primary Therapist are equal bilaterally Moves all extremities. Full function Gait is steady, Speech is normal, Facial symmetry appears normal. Cardiovascular: Patient's skin is warm and dry. Edema is 3+ to left midcalf, left ankle, left foot, right midcalf, right ankle and right foot pitting to left midcalf, left ankle, left foot, right midcalf, right ankle and right foot Chest pain is described as vague, quality is pressure, sharp, is located in anterior chest wall episodes are continuous is aggravated by activity. Respiratory: Airway is patent Respiratory effort is even, labored, shallow, using tripod position, Respiratory pattern is symmetrical, tachypnea Breath sounds are diminished in left posterior lower lobe and right posterior middle lobe. GI: Abdomen is round distended, obese, Bowel sounds present X 4 quads. Reports tolerance of fluids, tolerance of food. : No signs and/or symptoms were reported regarding the genitourinary system. Derm: Skin is pink, warm \T\ dry. redness and flaky skin noted to BLE. Musculoskeletal: Circulation, motion, and sensation intact. Range of motion: intact in all extremities. Historical: - Allergies: 17:55 No Known Allergies; sg - Home Meds: 17:55 buspirone 10 mg Oral tab 1 tab 3 times per day [Active]; carvedilol 3.125 mg Oral tab 1 sg tab 2 times per day [Active]; digoxin 250 mcg Oral tab 1 tab once daily [Active]; furosemide 40 mg Oral tab 1 tab 2 times per day [Active]; lisinopril 5 mg Oral tab 1 tab once daily [Active]; spironolactone 25 mg Oral tab 1 tab once daily [Active]; - PMHx: 17:55 cardiomegaly; CHF; COPD; Hypertension; sg 18:09 Hepatitis; sg - Immunization history:: Adult Immunizations not up to date. - Social history:: Smoking status: Patient/guardian denies using tobacco. - Ebola Screening: : Patient negative for fever greater than or equal to 101.5 degrees Fahrenheit, and additional compatible Ebola Virus Disease symptoms Patient denies exposure to infectious person Patient denies travel to an Ebola-affected area in the 21 days before illness onset No symptoms or risks identified at this time. Screenin:30 Abuse screen: Denies threats or abuse. Denies injuries from another. Nutritional sv screening: No deficits noted. Tuberculosis screening: No symptoms or risk factors identified. Fall Risk None identified. Assessment: 17:45 Reassessment: BIPAP placed on pt by Jeanne CHANDRA. sv 18:20 Reassessment: Patient appears in no apparent distress at this time. Patient and/or sv family updated on plan of care and expected duration. Pain level reassessed. Patient is alert, oriented x 3, equal unlabored respirations, skin warm/dry/pink. Patient states symptoms have improved. Respiratory: Reports respirations have improved Respiratory effort is even, unlabored, Respiratory pattern is symmetrical, tachypnea. 19:20 General: Appears in no apparent distress. comfortable, Behavior is calm, cooperative, ao appropriate for age. Pain:. Neuro: Level of Consciousness is awake, alert, obeys commands, Oriented to person, place, time, situation, Appropriate for age Moves all extremities. Full function Speech is normal. Cardiovascular: Capillary refill < 3 seconds Patient's skin is warm and dry. Respiratory: Airway is patent Respiratory effort is even, unlabored, Respiratory pattern is symmetrical. Respiratory: Reports shortness of breath at rest. GI: Abdomen is obese, Bowel sounds present X 4 quads. : No signs and/or symptoms were reported regarding the genitourinary system. EENT: No signs and/or symptoms were reported regarding the EENT system. Derm: No signs and/or symptoms reported regarding the dermatologic system. Musculoskeletal: No signs and/or symptoms reported regarding the musculoskeletal system. 20:30 Reassessment: Patient appears in no apparent distress at this time. Patient and/or ao family updated on plan of care and expected duration. Pain level reassessed. Patient is alert, oriented x 3, equal unlabored respirations, skin warm/dry/pink. Patient to be admitted to the hospital. waiting on admission orders. 20:30 Reassessment: Patient appears in no apparent distress at this time. Patient and/or ao family updated on plan of care and expected duration. Pain level reassessed. Patient is alert, oriented x 3, equal unlabored respirations, skin warm/dry/pink. Patient to be taking to his room 230. 21:20 Reassessment: Attempt to call report and nurse was with a patient. Nurse to call back. ao 21:57 Reassessment: Report called to SKYLAR Riosappian bpm developer nurse. ao Vital Signs: 17:44 BP 138 / 83; Pulse 119; Resp 36; Temp 97.6; Pulse Ox 98% on R/A; sg 18:40 BP 134 / 80; Pulse 108; Resp 34; Pulse Ox 98% on 30% BiPAP; sg 21:13 BP 144 / 88; Pulse 112; Resp 16; Pulse Ox 100% ; ao ED Course: 17:43 Patient arrived in ED. sg 17:44 Arm band placed on. sg 17:44 Patient has correct armband on for positive identification. Bed in low position. Call sv light in reach. Side rails up X2. general dentist on. Pulse ox on. NIBP on. Head of bed elevated. 17:48 Harry Day MD is Attending Physician. tw4 17:58 Greer Stearns, RN is Primary Nurse. sv 18:04 EKG done, by technical mgr. reviewed by Harry Day MD. sm3 18:07 Triage completed. sg 18:20 Accessed peripheral vein via ultrasound, utilizing dynamic ultrasound technique Blood sv collected. done by Ricardo VILLASENOR using 18G Nexia IV Catheter ,sterile technique, per hospital protocol. Clean \T\ dry. Dressing intact. Good blood return. Flushes easily. 18:27 XRAY Chest (1 view) In Process Unspecified. EDMS 19:15 Report given to Riya CHENG. sv 19:43 Primary Nurse role handed off by Greer Stearsn RN sv 19:56 Renzo Scales, RN is Primary Nurse. ao 20:22 Chivo Monique is Hospitalizing Provider. tw4 21:25 No provider procedures requiring assistance completed. Patient admitted, IV remains in ao place. Administered Medications: 18:55 Drug: DuoNeb (3:1) (2.5 mg - 0.5 mg) 3 ml {Note: administered by Jeanne SEWER PIPE OFFBEARER.} Route: sv Nebulizer; 21:13 Follow up: Response: No adverse reaction ao 20:01 Drug: Lasix 40 mg Route: IVP; Site: right antecubital; ao 21:13 Follow up: Response: No adverse reaction ao Outcome: 20:23 Decision to Hospitalize by Provider. tw4 21:26 Admitted to Med/surg accompanied by nurse, room 230, Report called to 230 ao 21:26 Condition: stable 21:26 Instructed on the need for admit. 22:36 Patient left the ED. ao Signatures: Dispatcher [employer] EDMS Greer Stearns RN RN sv Gay, Steven, RN RN Renzo Scales RN RN ao Wadley, Terrence, MD MD 4 WagnerRadha 3 Corrections: (The following items were deleted from the chart) 19:45 17:45 Musculoskeletal: Circulation, motion, and sensation intact. Range of motion: sg intact in all extremities, Swelling absent sg 21:58 21:00 Reassessment: Attempt to call report and nurse was with a patient. Nurse to call ao back. ao
[2019-09-10] MEDS ORDERED: IBUPROFEN 100 MG/5 ML UCUP ONE (22:54)
[2019-09-10] MEDS ORDERED: MAGNESIUM HYDROXIDE 8% 30 ML PO PRN (23:01)
[2019-09-10] MEDS ORDERED: ONDANSETRON 4 MG/2 ML VIAL IV PRN (23:01)
[2019-09-11] MEDS: ALBUTEROL 2.5 MG/3 ML NEB SOL NEB SCH ×4 (03:49→20:05)
[2019-09-11] MEDS: IPRATROPIUM BROM 0.5MG/2.5ML NEB SCH ×7 (03:49→23:30)
[2019-09-11 06:29] LABS: Phosphorus 3.1 mg/dL (2.5-4.9); Potassium 3.6 mmol/L (3.5-5.1)
[2019-09-11 06:34] LABS: Absolute Lymphocytes (CBC) 2.2 K/uL (0.7-4.9); Basophils % 0.9 % (0-1.3); Hematocrit 35.2 % (39.6-49.0); Lymphocytes % 25.8 % (15.3-44.8); MPV 10.7 fL (7.6-11.3)
--- NOTE | 2019-09-11 06:52 | EKG ---
Test Date: 2019-09-10 Test Time: 17:51:44 Siding Applicator: JACINTA MEASUREMENT RESULTS: Intervals: Rate: 118 NV: QRSD: 174 QT: 450 QTc: 630 [place]: P: NV: QRS: -76 T: 69 INTERPRETIVE STATEMENTS: Sinus tachycardia Right bundle branch block Left anterior fascicular block Bifascicular block Abnormal ECG Compared to ECG 07/23/2019 10:41:15 Sinus rhythm no longer present Bifascicular block still present Electronically Signed On 09-11-19 06:51:32 CDT by Javan Barrientos
[2019-09-11] MEDS: ASPIRIN EC 81 MG TAB PO SCH (09:00)
[2019-09-11] MEDS ORDERED: DIGOXIN 0.25 MG TABLET PO SCH (09:00)
[2019-09-11] MEDS: ENOXAPARIN 40 MG/0.4 ML SQ SCH (09:00)
[2019-09-11] MEDS: FUROSEMIDE 40 MG/4 ML VIAL IV SCH ×2 (09:24→17:39)
[2019-09-11] MEDS: NICOTINE 21 MG/PAT TD SCH (14:15)
[2019-09-11] MEDS: BUSPIRONE HCL 5 MG TABLET PO SCH ×2 (14:15→20:36)
--- NOTE | 2019-09-11 14:39 | PN ---
Patient seen and examined. Chart reviewed and case discussed with RN. The patient complaining of shortness of breath, sitting in tripod position. Medications List: Reviewed. Physical Examination: Vital Signs: Temperature 97.9, heart rate 111, blood pressure 131/73, respirations 20, O2 at 96% on room air. General: Awake, alert, oriented x3. Appears older than stated age, ill- appearing obese male. BMI 35. CV: S1, S2. Sinus tachycardia. Peripheral pulses weak. Respiratory: Diminished breath sounds. Crackles present. No wheezing or stridor. Gastrointestinal: Abdomen is distended. Moderate ascites. Positive fluid wave. Bowel sounds positive. Extremities: No clubbing or cyanosis. Patient has significant peripheral edema , bilateral lower extremities 3+. Neurologic: Nonfocal. Cranial nerves 2 through 12 intact grossly. Speech is normal. Skin: Chronic venous stasis changes of lower extremities. Laboratory Data: Sodium 140, potassium 3.6, chloride 107, CO2 of 28, BUN 16, creatinine 0.9, glucose 125, calcium 8.1, phosphorus 3.1, magnesium 2. Troponin 0.13, 0.09. WBC 8.5, H and H 12 and 35.2, platelets 131, neutrophils 59%. Assessment And Plan: A 54-year-old male with; 1. Acute on chronic systolic congestive heart failure. We will continue with congestive heart failure guidelines. Continue diuretics. Monitor I's and O's strictly, 2 g sodium restriction and 1500 mL fluid restriction. Patient was counseled. He does not follow his fluid or sodium restricted diet. Consult Cardiology. 2. Diffuse anasarca. Patient is scheduled for paracentesis. 3. Acute respiratory distress. Patient is doing significantly better now on room air 97%. Chest x-ray shows shallow inspiration, possible atelectasis on the right base. 4. Acute chronic obstructive pulmonary disease exacerbation. We will continue with nebulizer treatments, steroids, supplemental oxygen p.r.n. 5. Diabetes mellitus type 2 with long-term use of insulin with hyperglycemia. We will continue with sliding scale insulin and monitor blood glucose levels. 6. Essential hypertension stable. Resume home medications as appropriate. 7. Elevated troponin level likely due to congestive heart failure. No chest pain. 8. Bifascicular block. 9. Severe protein calorie malnutrition 10. DVT prophylaxis with Lovenox. Disposition: Likely discharge in the next 24 to 48 hours depending on clinical response. The patient is noncompliant with medications. States he has run out of his medications yet again due to financial reasons, cannot afford refills. Patient has been counseled extensively. He understands the importance of fluid- restricted and sodium restricted diet along with taking his medications. We will await further evaluation by Cardiology. Continue diuresis and paracentesis. Overall poor prognosis. Patient states that he does not have any liver disease , however, has diffuse anasarca and ascites. We will investigate further. /DAVID Voice ID: [id number] Report ID: [id number] ADÁN
[2019-09-11] MEDS ORDERED: POTASSIUM CL SA 10 MEQ TAB PO ONE (16:00)
--- NOTE | 2019-09-11 16:23 | CON ---
Chief Complaint: Dyspnea. History Of Present Illness: Mr. Dhaliwal is 54 years. He has known about a cardiomyopathy. He has be en in various hospitals. He gets tuned up. It has been on medications such as Entresto and Coreg an d diuretics, and he runs out of them and has to come back to the hospital again. This hospitalizatio n is no exception. He was in our hospital not very long ago, left feeling fairly good. He has an ej ection fraction in the 20% range. He does not have a defibrillator. There was no bypass surgery or stents. He has never had a heart catheterization. He uses about 4 cigarettes per day. Alcohol use is claimed to be in moderation. Home Medications: Digoxin, lisinopril, buspirone, carvedilol, and Lasix. He actually ran out of those for 3 days because he could not afford them and on his way to pick them up because he had some money. His truck broke down, he had to push the truck out of the road that ca used so much dyspnea, but he came in. He denies having chest pain. Physical Examination: General: He is 5 feet 10 inches, 244 pounds. Obese, alert, oriented, pleasant, mild respiratory dis tress. HEENT: Normal. Lungs: Clear. Cardiac: Regular. There is no significant murmur. Abdomen: Soft, obese. Extremities: Mild edema. Distal pulses diminished. Imaging: Electrocardiogram shows sinus tachycardia, right bundle-branch block, leftward axis, not an y different from older EKGs. His chest x-ray is listed as a poor inspiratory effort, not suggestive of volume overload. No changes from a chest x-ray roughly a month ago. Impression: The patient has a very severe cardiomyopathy. He probably has underlying severe coronar y heart disease as well. His troponins are always like they are today. They are in the range betwee n 0.8 and 0.15. Looking back over the last 3 or 4 admissions, it is always the same. There was neve r a rise and fall. The patient has a very unstable heart. I would recommend that he undergo a heart catheterization, re vascularization if appropriate. I will discuss the case with Dr. Quijano and we might want to try to do a heart catheterization tomorrow. FERNANDO/DAVID Voice ID: [id number] Report ID: [id number]
[2019-09-11] MEDS: CARVEDILOL 3.125 MG TAB PO SCH (20:36)
[2019-09-12] MEDS: IPRATROPIUM BROM 0.5MG/2.5ML NEB SCH ×5 (03:40→20:00)
[2019-09-12] MEDS: ALBUTEROL 2.5 MG/3 ML NEB SOL NEB SCH ×4 (03:40→20:00)
[2019-09-12] MEDS: CARVEDILOL 3.125 MG TAB PO SCH (05:08)
[2019-09-12] MEDS: ASPIRIN EC 81 MG TAB PO SCH (05:09)
[2019-09-12 06:00] LABS: Absolute Lymphocytes (CBC) 1.9 K/uL (0.7-4.9); Hematocrit 37.1 % (39.6-49.0); Lymphocytes % 16.4 % (15.3-44.8); MPV 10.6 fL (7.6-11.3)
[2019-09-12 06:26] LABS: Albumin 2.3 g/dL (3.4-5.0); Bilirubin Total 2.3 mg/dL (0.2-1.0); Potassium 4.1 mmol/L (3.5-5.1); Protein, Total 6.9 g/dL (6.4-8.2)
[2019-09-12] MEDS: DIGOXIN 0.25 MG TABLET PO SCH (09:00)
[2019-09-12] MEDS: ENOXAPARIN 40 MG/0.4 ML SQ SCH (09:00)
[2019-09-12] MEDS: FUROSEMIDE 40 MG/4 ML VIAL IV SCH ×2 (09:00→16:32)
[2019-09-12] MEDS ORDERED: LISINOPRIL 5 MG TAB PO SCH (09:00)
[2019-09-12] MEDS: BUSPIRONE HCL 5 MG TABLET PO SCH ×4 (09:00→23:30)
[2019-09-12] MEDS: NICOTINE 21 MG/PAT TD SCH (10:07)
[2019-09-12] MEDS ORDERED: HEPA 1000U/500MLS 1,000 UNIT/500 ML BAG IV ONE (10:19)
[2019-09-12 10:24] LABS: Body Fluid WBC 217 /mm^3
--- NOTE | 2019-09-12 10:55 | RAD REPORT ---
EXAM DESCRIPTION: US - Paracentesis Proc Guidance - 09/12/2019 10:03 am CLINICAL HISTORY: Ascites COMPARISON: None. TECHNIQUE: The patient presents for ultrasound-guided paracentesis. The procedure, risks and altern atives were discussed with the patient in detail. Oral and written consent were obtained. Time out p rocedure was performed. The patient had no contraindicated allergy or medication history. PT, INR va lues within acceptable limits. Preliminary sonographic evaluation identified a lateral right mid abdomen access site. The skin and deeper tissues were anesthetized with 1 percent lidocaine. Under direct sonographic visualization, a paracentesis catheter was advanced into the peritoneal cavity. Approximately 10-12 mL of ascites was retained for requested laboratory studies. Large volume drainage was initiated. Approximately 5 lite rs of ascites removed. At the conclusion of the procedure, catheter was withdrawn and a bandage placed at the puncture site. Postprocedure care and precaution instructions were given to the patient. [facility] was [facility] the floor for continued care. IMPRESSION: Ultrasound-guided paracentesis as detailed.
[2019-09-12 11:34] LABS: Body Fluid Source PERITONEAL; Color of fluid Yellow (COLORLESS)
[2019-09-12 11:35] LABS: Appearance SLT. TURBID (CLEAR)
[2019-09-12] MEDS ORDERED: NA CHLORIDE 0.9% 500 ML ONE (11:49)
[2019-09-12] MEDS ORDERED: FENTANYL CITR 100 MCG/2 ML ONE (11:53)
[2019-09-12] MEDS ORDERED: MIDAZOLAM HCL 2 MG/2 ML INJ ONE (11:53)
[2019-09-12] MEDS ORDERED: ATROPINE SULF 1 MG/10 ML SYR IV ONE (11:54)
[2019-09-12] MEDS ORDERED: NA CHLORIDE 0.9% 0 ML ONE (11:54)
[2019-09-12] MEDS ORDERED: ALPRAZOLAM 0.25 MG TABLET PO ONE (14:00)
[2019-09-12] MEDS: SACUBITRIL/VALSARTAN 24/26 MG TAB PO SCH ×3 (14:17→23:30)
[2019-09-12] MEDS: CARVEDILOL 6.25 MG TAB PO SCH ×2 (14:20→21:00)
--- NOTE | 2019-09-12 15:21 | PN ---
Date of Progress Note: 09/12/2019 Subjective: Patient seen and examined. Chart reviewed and case discussed with RN. Patient had paracentesis done today with 5 L removed. Feels somewhat better. Still having some shortness of breath, on supplemental oxygen. Patient is scheduled to go for heart catheterization later today. Medications: List reviewed. Physical Examination: Vital Signs: Temperature 97.3, heart rate 100, blood pressure 132/76, respirations 22, O2 100% on 2 L via nasal cannula. General: Awake, alert, oriented x3, in some mild distress. Appears older than stated age, ill-appearing male. Obese. CV: S1, S2. Sinus tachycardia. Peripheral pulses present. Respiratory: Decreased breath sounds. Some crackles present, improved from yesterday. Patient is tachypneic. No use of accessory muscles. Gastrointestinal: Abdomen is soft, nontender, nondistended. Positive bowel sounds. No guarding or rigidity. Extremities: No clubbing, cyanosis or edema. Neurologic: Nonfocal. Laboratory Data: Sodium 139, potassium 4.1 chloride 104, CO2 of 28, BUN 16, creatinine 0.94, glucose 114, calcium 8.1, total bilirubin 2.3, AST 119, ALT 68 , albumin 2.3. WBC 11.5, H and H 12.7 and 37.1, platelets 155, neutrophils 72% . Paracentesis with removal of 5 L of ascites. Assessment And Plan: A 54-year-old male with; 1. Acute on chronic systolic congestive heart failure. We will continue with congestive heart failure guidelines and diuretics. Patient has negative fluid balance. Also, had 5 L removed from paracentesis. We will repeat chest x-ray in a.m. Patient was counseled regarding his dietary restrictions. Appreciate Cardiology input. 2. Elevated troponin level. May be due to congestive heart failure, possible [id number] myocardial infarction. Patient going for heart catheterization today. He does have significant cardiomyopathy and likely has underlying disease. 3. Diffuse anasarca, status post paracentesis. Ascites has improved. Again, his volume status shows negative fluid balance. We will continue to diurese secondary to congestive heart failure and liver cirrhosis. 4. Liver cirrhosis, seen on previous ultrasound imaging. Continue with sodium restriction, fluid restriction, and diuretics. Patient is on Aldactone. 5. Acute respiratory distress, improving. Currently on oxygen via 2 L nasal cannula. Does have some atelectasis on the right base secondary to anasarca. 6. Acute chronic obstructive pulmonary disease exacerbation. We will continue nebulizer treatments and steroids. Patient is on supplemental oxygen at this time. 7. Diabetes mellitus type 2 with long-term use of insulin with hyperglycemia. Continue monitoring Accu-Cheks and sliding scale insulin. 8. Essential hypertension, stable. 9. Bifascicular block. 10. Deep venous thrombosis prophylaxis. We will hold Lovenox due to procedure today. 11. Nicotine dependence with cigarette smoking. Counseled. Continue with nicotine patch. 12. Noncompliance, intentional. Patient stopped taking his medications and goes from hospital to hospital when he has exacerbations. 13. Severe protein calorie malnutrition. supplements Disposition: Follow up on ascites fluid cultures and workup. Doubt SBP. Cardiac catheterization planned for today. Likely discharge in the next 24 to 48 hours depending on clinical response. /DAVID Voice ID: [id number] Report ID: [id number] ADÁN
[2019-09-12] MEDS ORDERED: DIGOXIN 0.125 MG TABLET PO SCH (20:27)
--- NOTE | 2019-09-12 22:22 | OP ---
Surgeon: Shane Quijano MD [employer]: Ainsley Grajeda. Indication: Patient admitted to Dr. Monique on 09/10/2019. He was seen by Dr. Barrientos on 09/11/2019 a nd set up for a heart catheterization because of cardiomyopathy, positive troponin. Description Of Procedure: [facility] was [facility] today as an inpatient. On 09/12/2019, he underwent a left heart catheterization, selective coronary arteriogram, and left ventriculogram. A 6-Faroese sheath introduced in the right common femoral artery successfully. Patient was prepped a nd draped in the routine sterile fashion. Given 2 mg of Versed and 100 of fentanyl for sedation. O2 saturation was 94% on 2 L. Patient has received an inhaler nebulized treatment before the procedure because of shortness of breath. He just had 5 L paracentesis done upstairs. Patient also has a his tory of hepatitis C and noncompliance. A 6-Faroese sheath and catheters were used to do the diagnosti c catheterization. He was found to have perfectly normal coronaries. There were no complications. Blood Loss: 5 mL. 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 Plan: Plan is for medical therapy. Possible referral for defibrillator down the road. Anesthesia: Total conscious sedation, 30 minutes. NB/MODL Voice ID: [id number] Report ID: [id number]
[2019-09-13] MEDS: CARVEDILOL 6.25 MG TAB PO SCH ×2 (01:00→08:51)
[2019-09-13] MEDS: ALBUTEROL 2.5 MG/3 ML NEB SOL NEB SCH ×5 (02:00→19:30)
[2019-09-13] MEDS: IPRATROPIUM BROM 0.5MG/2.5ML NEB SCH ×6 (04:00→19:30)
[2019-09-13 06:01] LABS: Albumin 1.7 g/dL (3.4-5.0); Potassium 3.8 mmol/L (3.5-5.1); Protein, Total 5.2 g/dL (6.4-8.2)
[2019-09-13 06:04] LABS: Absolute Lymphocytes (CBC) 2.4 K/uL (0.7-4.9); Basophils % 1.1 % (0-1.3); Hematocrit 33.3 % (39.6-49.0); MPV 11.1 fL (7.6-11.3); RBC Red Blood Cell Count 3.52 M/uL (4.33-5.43)
[2019-09-13] MEDS ORDERED: POTASSIUM CL SA 10 MEQ TAB PO ONE (07:51)
[2019-09-13] MEDS: SACUBITRIL/VALSARTAN 24/26 MG TAB PO SCH (08:50)
[2019-09-13] MEDS: ASPIRIN EC 81 MG TAB PO SCH (08:51)
[2019-09-13] MEDS: DIGOXIN 0.25 MG TABLET PO SCH (08:51)
[2019-09-13] MEDS: BUSPIRONE HCL 5 MG TABLET PO SCH ×3 (08:51→20:59)
[2019-09-13] MEDS: FUROSEMIDE 40 MG/4 ML VIAL IV SCH ×2 (08:51→16:51)
[2019-09-13] MEDS: NICOTINE 21 MG/PAT TD SCH (08:52)
[2019-09-13] MEDS: ALPRAZOLAM 0.25 MG TABLET PO PRN ×2 (11:01→20:59)
--- NOTE | 2019-09-13 16:11 | PN ---
Date of Progress Note: 09/13/2019 Subjective: Patient seen and examined. Chart reviewed and case discussed with RN and Dr. Quijano. Patient had heart catheterization yesterday, normal coronaries. Medications: List reviewed. Physical Examination: Vital Signs: Temperature 98.5, heart rate 84, blood pressure 91/54, respirations 25, O2 of 98% on room air General: Awake, alert, and oriented x3. Anxious male. Obese. BMI 34.9. CV: S1, S2. Regular rate and rhythm. Peripheral pulses present. Respiratory: Diminished breath sounds. No wheezing or stridor. Patient is tachypneic. Gastrointestinal: Abdomen is soft. Mild ascites. Positive bowel sounds. No tenderness. Extremities: No clubbing or cyanosis. Patient has 3+ edema of bilateral lower extremities. Neurologic: Nonfocal. Laboratory Data: Sodium 137, potassium 3.8, chloride 105, CO2 of 28, BUN 22, creatinine 0.97, glucose 160, calcium 7.3, AST 84, ALT 50, albumin 1.7. WBC 10.5, H and H 11.4 and 33.3, platelets 128, neutrophils 64%. Assessment And Plan: A 54-year-old male with: 1. Acute on chronic systolic congestive heart failure, improving. We will continue with CHF guidelines. Continue diuretics. Patient has negative fluid balance. He is now off oxygen, somewhat tachypneic today. Appreciate Cardiology input. 2. Elevated troponin level likely due to congestive heart failure. No non-ST- elevation myocardial infarction. Coronaries were normal on heart catheterization. Patient has dilated cardiomyopathy, likely due to previous alcohol use. 3. Diffuse anasarca, status post paracentesis. 5 L removed. No SBP, improving. 4. Liver cirrhosis. We will continue with sodium restriction, fluid restriction, and diuretics. Continue Aldactone. 5. Acute respiratory distress, improving. Now on room air secondary to congestive heart failure. 6. Acute chronic obstructive pulmonary disease exacerbation. Continue nebulizer treatments. Wean off steroids. 7. Diabetes mellitus type 2 with long-term use of insulin with hyperglycemia. We will continue sliding scale insulin and monitor Accu-Cheks. 8. Essential hypertension, stable. 9. Bifascicular block. 10. Nicotine dependence with cigarette smoking, counseled. 11. Noncompliance intentional, counseled. 12. Deep venous thrombosis prophylaxis. We will resume Lovenox. Plan: 1. We will start Entresto today at 5 p.m. Patient's ANAYA inhibitor was discontinued at 5 a.m. yesterday, 36-hour wait prior to starting Entresto after stopping ANAYA inhibitor. We will give patient prescription card for Entresto. He will need to sign up with the [employer] prescription assistance program. 2. Generalized anxiety disorder. Continue Xanax p.r.n. Plan; likely discharge in the next 24 hours depending on clinical response. ADDENDUM: Due to [employer] issue, pharmacy issued entresto as now order. No angioedema noted. /DAVID Voice ID: [id number] Report ID: [id number] ADÁN
[2019-09-13] MEDS ORDERED: ENOXAPARIN 40 MG/0.4 ML SQ SCH (17:00)
[2019-09-13] MEDS ORDERED: NA CHLORIDE 0.9% 250 ML ONE (18:49)
[2019-09-13] MEDS ORDERED: SODIUM CHL 0.9% 1000 ML BAG IV SCH (19:00)
[2019-09-13] MEDS ORDERED: NA CHLORIDE 0.9% 250 ML IV ONE (19:00)
--- NOTE | 2019-09-13 19:52 | RAD REPORT ---
EXAM DESCRIPTION: RAD - Chest Single View - 09/13/2019 7:43 pm CLINICAL HISTORY: sob Chest pain. COMPARISON: Chest Single View dated 09/10/2019; Chest Single View dated 07/26/2019; Chest Single View dated 07/23/2019; Chest Single View dated 05/03/2019; Paracentesis Proc Guidance dated 09/12/2019 FINDINGS: Portable technique limits examination quality. Lungs are underinflated with mild airspace opacity in the left upper lobe, new since prior study. Thi s may represent an area of infiltrate/pneumonia. Heart is moderately enlarged in size. No displaced f ractures.
[2019-09-14] MEDS: IPRATROPIUM BROM 0.5MG/2.5ML NEB SCH ×3 (00:10→08:35)
[2019-09-14] MEDS: ALBUTEROL 2.5 MG/3 ML NEB SOL NEB SCH ×2 (04:35→08:35)
[2019-09-14 06:00] VITALS: BMI 34.4
[2019-09-14 07:00] LABS: Absolute Lymphocytes (CBC) 2.3 K/uL (0.7-4.9); Basophils % 0.7 % (0-1.3); Lymphocytes % 19.4 % (15.3-44.8); MPV 11.1 fL (7.6-11.3); RBC Red Blood Cell Count 3.97 M/uL (4.33-5.43)
[2019-09-14 07:13] LABS: Protein, Total 6.2 g/dL (6.4-8.2)
[2019-09-14] MEDS: ALPRAZOLAM 0.25 MG TABLET PO PRN (09:21)
[2019-09-14] MEDS: DIGOXIN 0.25 MG TABLET PO SCH (09:21)
[2019-09-14] MEDS: BUSPIRONE HCL 5 MG TABLET PO SCH (09:22)
[2019-09-14] MEDS: NICOTINE 21 MG/PAT TD SCH (09:22)
[2019-09-14] MEDS: ASPIRIN EC 81 MG TAB PO SCH (09:22)
[2019-09-14] MEDS: FUROSEMIDE 40 MG/4 ML VIAL IV SCH (09:22)
[2019-09-14 09:25] VITALS: BP 130/68
[2019-09-14 10:28] VITALS: TEMP 97.8
[2019-09-14 11:53] VITALS: O2SAT 99
--- NOTE | 2019-09-14 21:56 | DS ---
Date of Discharge: 09/14/2019 Consultants: 1. Dr. Barrientos, Cardiology. 2. Dr. Quijano, Cardiology. Procedures: Cardiac catheterization on 09/12/2019 with normal coronaries. Patient does have dilated cardiomyopathy. Procedures on 09/12/2019, paracentesis with removal of 5 L of ascites. Admitting Diagnoses: 1. Acute on chronic systolic congestive heart failure. 2. Anasarca. 3. Acute respiratory failure with hypoxia. 4. Acute chronic obstructive pulmonary disease exacerbation. 5. Diabetes mellitus type 2 without long-term use of insulin. 6. History of hypertension. 7. Elevated troponin. Discharge Diagnoses: 1. Acute on chronic systolic congestive heart failure. 2. Elevated troponin level. 3. Diffuse anasarca. 4. Liver cirrhosis. 5. Acute respiratory distress with hypoxia, improving. 6. Acute chronic obstructive pulmonary disease exacerbation. 7. Essential hypertension, stable. 8. Bifascicular block. 9. Nicotine dependence with cigarette smoking. 10. Noncompliance. Hospital Course: Patient is a 54-year-old male with past medical history of liver cirrhosis, congestive heart failure with low ejection fraction 30%, chronic lymphedema due to liver cirrhosis, coronary artery disease, hypertension , drug abuse, history of noncompliance to medical therapy, came in with shortness of breath. Patient has been in and out of the hospital multiple times with a similar situation where he is not taking his medications and has an acute exacerbation of his symptoms. He was treated, becomes compensated, and gets discharged and is again noncompliant with the cycle repeating. Patient was started on diuretics. He had moderate ascites, which was treated with paracentesis with 5 L removed. Fluid analysis did not show any indications of SBP. Cardiology was also consulted. He was taken for cardiac catheterization and did well. His coronaries were found to be normal, however, did have dilated cardiomyopathy. Dr. Quijano recommended starting Entresto for his low ejection fraction. Patient unfortunately received lisinopril and Entresto at the same date due to [employer] assistant issue causing pharmacy error despite Entresto being ordered for 36 hours post lisinopril dose. He was monitored for signs of angioedema. No adverse events were noted. Patient was notified. Patient's shortness of breath improved. His COPD was stable. He was counseled regarding nicotine use and alcohol use. Patient does have liver cirrhosis, likely secondary to alcohol use. Patient had a negative fluid balance. He was doing well. He was then cleared for discharge from a Cardiology standpoint. Patient also has severe anxiety, required Xanax p.r.n. Patient is on BuSpar, however, states it does not work for him and has stopped taking that medication. I explained to him that, that medication takes time to get into the system and make a difference. He is not interested in resuming the BuSpar. Reviewing previous records, it should be noted that patient is positive for hepatitis C, this is from June 2019 with a viral load of 105,000. Patient was recommended to follow up with GI as outpatient for treatment of his hepatitis C. Overall, patient remains a poor prognosis due to his comorbid conditions, his dilated cardiomyopathy, use of nicotine, cirrhosis, and chronic conditions such as hepatitis C. patient's noncompliant is the biggest factor with him not adhering to medication regimen. He was counseled extensively to avoid lisinopril and Entresto at the same time. Coupon card was given for Entresto, however, seems unlikely that patient is to fill out the form for continued prescription assistance. Physical Examination: General: Awake, alert, oriented x3, obese male, not in any acute distress. HEENT: Normocephalic, atraumatic. PERRLA. EOMI. Moist mucous membranes. No lip swelling. No tongue swelling. Poor dentition. CV: S1, S2. Respiratory: Diminished breath sounds at the bases. No wheezing. Gastrointestinal: Abdomen is mildly distended. Positive ascites. Positive bowel sounds. No tenderness. Extremities: Patient has edema of the lower extremities, which is chronic. Neurologic: Nonfocal. Total time spent discharging the patient was 46 minutes. SPENSER Voice ID: [id number] Report ID: [id number] ADÁN
== END 2019-09-14 11:30 | disposition home or self-care (01) | DRG 286 ==
LOC: ER 17:48 → ERHOLD 20:36 → 2ND 22:10
PROVIDERS: ADMIT Internal Medicine; ATTEND Family Medicine
PROC: 5A09457 Assistance with Respiratory Ventilation, 24-96 Consecutive Hours, Continuous Positive Airway Pressure (ICD-10-PCS; principal; 2019-09-10)
PROC: 4A023N7 Measurement of Cardiac Sampling and Pressure, Left Heart, Percutaneous Approach (ICD-10-PCS; 2019-09-12)
PROC: 0W9G3ZZ Drainage of Peritoneal Cavity, Percutaneous Approach (ICD-10-PCS; 2019-09-12)
PROC: B205YZZ Plain Radiography of Left Heart using Other Contrast (ICD-10-PCS; 2019-09-12)
PROC: B205YZZ Plain Radiography of Left Heart using Other Contrast (ICD-10-PCS; 2019-09-12)
DX: I11.0 Hypertensive heart disease with heart failure (principal); J96.00 Acute respiratory failure, unspecified whether with hypoxia or hypercapnia; E43 Unspecified severe protein-calorie malnutrition; I45.2 Bifascicular block; J44.1 Chronic obstructive pulmonary disease with (acute) exacerbation; R18.8 Other ascites; I50.23 Acute on chronic systolic (congestive) heart failure; I25.10 Atherosclerotic heart disease of native coronary artery without angina pectoris; E11.65 Type 2 diabetes mellitus with hyperglycemia; K74.60 Unspecified cirrhosis of liver; B18.2 Chronic viral hepatitis C; F10.10 Alcohol abuse, uncomplicated; F19.10 Other psychoactive substance abuse, uncomplicated; R79.89 Other specified abnormal findings of blood chemistry; Z79.4 Long term (current) use of insulin; Z68.34 Body mass index [BMI] 34.0-34.9, adult; Z91.19 Patient's noncompliance with other medical treatment and regimen
CPT/HCPCS: 36415; 49083; 71045; 80048; 80053; 80076; 82805; 82962; 83735; 83880; 84100; 84484; 85025; 85610; 85730; 89050; 93005; 93458; 94640; 94660; 94760; 96374; 99285; C1760; C1893; J0583; J1650; J1940; J2250; J3010; J7030; J7040

== ENCOUNTER 2019-11-12 19:13 | Inpatient (IN) | payer OTHER ==
--- OUTSIDE RECORDS SUMMARY | 2019-11-12 19:18 | XMS REPORT ---
:1965 [facility] Address [address] [place] [address] Care Team Providers Name Role Phone BINALUIS HOPPERJO Unavailable Unavailable Problems This patient has no known problems. Allergies, Adverse Reactions, Alerts This patient has no known allergies or adverse reactions. Medications This patient has no known medications. Results Test Description Test Time Test Comments Text Results Atomic Results Result Comments BLOOD CULTURE 2019-11-12 13:16:00 Test Item Value Reference Range Comments CULTURE (BEAKER) (test STAPHYLOCOCCUS AUREUS From Anaerobic Bottle Only alil=1348) Staphylococcus aureus Clindamycin (test code=10) Erythromycin (test code=4) Linezolid (test code=40) Oxacillin (test code=14) Rifampin (test code=43) Tetracycline (test code=2) Trimethoprim + Sulfamethoxazole (test code=47) Vancomycin (test code=13) GRAM STAIN RESULT (BEAKER) From anaerobic bottle only: (test cqlk=7043) gram positive cocci in clusters BODY FLUID CULTURE + GRAM [id number] 13:16:00 Test Item Value Reference Range Comments CULTURE (BEAKER) (test STAPHYLOCOCCUS AUREUS 3+ Staphylococcus xltq=1848) aureus Clindamycin (test code=10) Erythromycin (test code=4) Linezolid (test code=40) Nitrofurantoin (test code=23) Oxacillin (test code=14) Rifampin (test code=43) Tetracycline (test code=2) Trimethoprim + Sulfamethoxazole (test code=47) Vancomycin (test code=13) GRAM STAIN RESULT 4+ WBCs (BEAKER) (test hhzg=1764) GRAM STAIN RESULT 1+ gram positive cocci (BEAKER) (test in pairs ytsh=321592) BLOOD [id number] 08:01:00 Test Item Value Reference Range Comments CULTURE (BEAKER) (test qmpd=3030) No growth in 5 days BLOOD [id number] 08:01:00 Test Item Value Reference Range Comments CULTURE (BEAKER) (test mtzz=5645) No growth in 5 days POCT-GLUCOSE [id number] 11:43:00 Test Item Value Reference Range Comments POC-GLUCOSE METER (BEAKER) 147 mg/dL 70-110 TESTED AT [facility] [address] [facility] (test bfyx=2088) [place] [address] BLOOD [id number] 08:01:00 Test Item Value Reference Range Comments CULTURE (BEAKER) (test jxrs=0213) No growth in 5 days BLOOD [id number] 08:01:00 Test Item Value Reference Range Comments CULTURE (BEAKER) (test mktm=9327) No growth in 5 days POCT-GLUCOSE [id number] 07:08:00 Test Item Value Reference Range Comments POC-GLUCOSE METER (BEAKER) 114 mg/dL 70-110 TESTED AT [address] (test jcls=0249) [place] [address] BASIC METABOLIC [id number] 07:04:00 Test Item Value Reference Range Comments SODIUM (BEAKER) (test 134 meq/L 136-145 ylnk=430) POTASSIUM (BEAKER) (test 3.9 meq/L 3.5-5.1 Specimen slightly lfpr=391) hemolyzed CHLORIDE (BEAKER) (test 105 meq/L 98-107 ichq=748) CO2 (BEAKER) (test 23 meq/L 22-29 aykk=755) BLOOD UREA NITROGEN 13 mg/dL 7-21 (BEAKER) (test ygum=549) CREATININE (BEAKER) (test 0.84 mg/dL 0.57-1.25 Specimen slightly mffl=785) hemolyzed GLUCOSE RANDOM (BEAKER) 92 mg/dL 70-105 (test besn=966) CALCIUM (BEAKER) (test 7.3 mg/dL 8.4-10.2 krht=606) EGFR (BEAKER) (test 95 mL/min/1.73 sq m ESTIMATED GFR IS NOT evge=2322) ACCURATE CREATININE CLEARANCE IN PREDICTING GLOMERULAR FILTRATION RATE. ESTIMATED GFR IS NOT APPLICABLE FOR DIALYSIS PATIENTS. [id number] 07:03:00 Test Item Value Reference Range Comments MAGNESIUM (BEAKER) (test 1.5 mg/dL 1.6-2.6 Specimen slightly hemolyzed knus=831) [id number] 07:03:00 Test Item Value Reference Range Comments PHOSPHORUS (BEAKER) (test 3.2 mg/dL 2.3-4.7 Specimen slightly hemolyzed leqw=110) HEPATIC FUNCTION [id number] 07:03:00 Test Item Value Reference Range Comments TOTAL PROTEIN (BEAKER) (test 6.6 gm/dL 6.0-8.3 Specimen slightly hemolyzed cdyg=195) ALBUMIN (BEAKER) (test 2.0 g/dL 3.5-5.0 Specimen slightly hemolyzed wean=7613) BILIRUBIN TOTAL (BEAKER) (test 1.7 mg/dL 0.2-1.2 Specimen slightly hemolyzed jdye=007) BILIRUBIN DIRECT (BEAKER) (test 1.0 mg/dL 0.1-0.5 Specimen slightly hemolyzed oqcr=023) ALKALINE PHOSPHATASE (BEAKER) 61 U/L 40-150 (test qris=630) AST (SGOT) (BEAKER) (test 64 U/L 5-34 Specimen slightly hemolyzed eywc=691) ALT (SGPT) (BEAKER) (test 36 U/L 6-55 Specimen slightly hemolyzed ezbd=188) CBC W/PLT COUNT & AUTO [id number] 06:32:00 Test Item Value Reference Range Comments WHITE BLOOD CELL COUNT (BEAKER) (test npwc=233) 9.3 K/ L 3.5-10.5 RED BLOOD CELL COUNT (BEAKER) (test rsfk=949) 3.55 M/ L 4.63-6.08 HEMOGLOBIN (BEAKER) (test xnpt=978) 10.8 GM/DL 13.7-17.5 HEMATOCRIT (BEAKER) (test msjk=362) 32.0 % 40.1-51.0 MEAN CORPUSCULAR VOLUME (BEAKER) (test hfhf=221) 90.1 fL 79.0-92.2 MEAN CORPUSCULAR HEMOGLOBIN (BEAKER) (test 30.4 pg 25.7-32.2 epjy=498) MEAN CORPUSCULAR HEMOGLOBIN CONC (BEAKER) (test 33.8 GM/DL 32.3-36.5 xnfy=788) RED CELL DISTRIBUTION WIDTH (BEAKER) (test 17.0 % 11.6-14.4 bqfn=358) PLATELET COUNT (BEAKER) (test xcer=218) 189 K/CU MM 150-450 MEAN PLATELET VOLUME (BEAKER) (test mrae=222) 11.9 fL 9.4-12.4 NUCLEATED RED BLOOD CELLS (BEAKER) (test 0 /100 WBC 0-0 hvzv=742) NEUTROPHILS RELATIVE PERCENT (BEAKER) (test 49 % sgwa=295) LYMPHOCYTES RELATIVE PERCENT (BEAKER) (test 38 % awzm=289) MONOCYTES RELATIVE PERCENT (BEAKER) (test 10 % qlis=070) EOSINOPHILS RELATIVE PERCENT (BEAKER) (test 2 % ihlq=330) BASOPHILS RELATIVE PERCENT (BEAKER) (test 1 % doon=343) NEUTROPHILS ABSOLUTE COUNT (BEAKER) (test 4.51 K/ L 1.78-5.38 uqhh=945) LYMPHOCYTES ABSOLUTE COUNT (BEAKER) (test 3.51 K/ L 1.32-3.57 wwaq=009) MONOCYTES ABSOLUTE COUNT (BEAKER) (test 0.94 K/ L 0.30-0.82 qkdz=254) EOSINOPHILS ABSOLUTE COUNT (BEAKER) (test 0.20 K/ L 0.04-0.54 pkvi=630) BASOPHILS ABSOLUTE COUNT (BEAKER) (test 0.07 K/ L 0.01-0.08 uutm=055) IMMATURE GRANULOCYTES-RELATIVE PERCENT (BEAKER) 0 % 0-1 (test bbac=1043) POCT-GLUCOSE [id number] 21:46:00 Test Item Value Reference Range Comments POC-GLUCOSE METER (BEAKER) 149 mg/dL 70-110 TESTED AT [address] (test zacn=0485) [place] [address] BLOOD [id number] 20:01:00 Test Item Value Reference Range Comments CULTURE (BEAKER) (test ltxd=9867) No growth in 5 days POCT-GLUCOSE [id number] 17:42:00 Test Item Value Reference Range Comments POC-GLUCOSE METER (BEAKER) 133 mg/dL 70-110 TESTED AT [address] (test zpra=8899) [place] [address] POCT-GLUCOSE [id number] 12:10:00 Test Item Value Reference Range Comments POC-GLUCOSE METER (BEAKER) 198 mg/dL 70-110 TESTED AT [address] (test uagz=2369) [place] [address] [id number] 09:20:00 Test Item Value Reference Range Comments PHOSPHORUS (BEAKER) (test vffv=421) 3.3 mg/dL 2.3-4.7 [id number] 09:20:00 Test Item Value Reference Range Comments MAGNESIUM (BEAKER) (test otwm=696) 1.6 mg/dL 1.6-2.6 BASIC METABOLIC [id number] 09:20:00 Test Item Value Reference Range Comments SODIUM (BEAKER) (test 136 meq/L 136-145 zaap=693) POTASSIUM (BEAKER) (test 4.1 meq/L 3.5-5.1 fifv=687) CHLORIDE (BEAKER) (test 101 meq/L 98-107 elnx=473) CO2 (BEAKER) (test 29 meq/L 22-29 uwqe=075) BLOOD UREA NITROGEN 13 mg/dL 7-21 (BEAKER) (test zoft=447) CREATININE (BEAKER) (test 0.83 mg/dL 0.57-1.25 eujr=553) GLUCOSE RANDOM (BEAKER) 130 mg/dL 70-105 (test gtrh=904) CALCIUM (BEAKER) (test 8.3 mg/dL 8.4-10.2 vdgr=748) EGFR (BEAKER) (test 96 mL/min/1.73 sq m ESTIMATED GFR IS NOT yoxi=6092) ACCURATE CREATININE CLEARANCE IN PREDICTING GLOMERULAR FILTRATION RATE. ESTIMATED GFR IS NOT APPLICABLE FOR DIALYSIS PATIENTS. HEPATIC FUNCTION [id number] 09:20:00 Test Item Value Reference Range Comments TOTAL PROTEIN (BEAKER) (test jbfa=002) 7.1 gm/dL 6.0-8.3 ALBUMIN (BEAKER) (test pdxt=7684) 2.2 g/dL 3.5-5.0 BILIRUBIN TOTAL (BEAKER) (test drhg=728) 2.1 mg/dL 0.2-1.2 BILIRUBIN DIRECT (BEAKER) (test eebj=243) 1.5 mg/dL 0.1-0.5 ALKALINE PHOSPHATASE (BEAKER) (test igdo=829) 72 U/L 40-150 AST (SGOT) (BEAKER) (test hpuf=316) 81 U/L 5-34 ALT (SGPT) (BEAKER) (test nnwx=289) 48 U/L 6-55 CBC W/PLT COUNT & AUTO [id number] 08:57:00 Test Item Value Reference Range Comments WHITE BLOOD CELL COUNT (BEAKER) (test ymbv=768) 9.3 K/ L 3.5-10.5 RED BLOOD CELL COUNT (BEAKER) (test ibrv=353) 3.46 M/ L 4.63-6.08 HEMOGLOBIN (BEAKER) (test gxoo=873) 10.9 GM/DL 13.7-17.5 HEMATOCRIT (BEAKER) (test gptu=898) 31.7 % 40.1-51.0 MEAN CORPUSCULAR VOLUME (BEAKER) (test wwxf=878) 91.6 fL 79.0-92.2 MEAN CORPUSCULAR HEMOGLOBIN (BEAKER) (test 31.5 pg 25.7-32.2 mufu=096) MEAN CORPUSCULAR HEMOGLOBIN CONC (BEAKER) (test 34.4 GM/DL 32.3-36.5 ynes=746) RED CELL DISTRIBUTION WIDTH (BEAKER) (test 17.0 % 11.6-14.4 ynde=087) PLATELET COUNT (BEAKER) (test rbtu=951) 178 K/CU MM 150-450 MEAN PLATELET VOLUME (BEAKER) (test ubil=316) 12.2 fL 9.4-12.4 NUCLEATED RED BLOOD CELLS (BEAKER) (test 0 /100 WBC 0-0 ypic=745) NEUTROPHILS RELATIVE PERCENT (BEAKER) (test 57 % eael=833) LYMPHOCYTES RELATIVE PERCENT (BEAKER) (test 31 % qkoc=169) MONOCYTES RELATIVE PERCENT (BEAKER) (test 9 % yzki=444) EOSINOPHILS RELATIVE PERCENT (BEAKER) (test 2 % zrqr=130) BASOPHILS RELATIVE PERCENT (BEAKER) (test 1 % qaiq=537) NEUTROPHILS ABSOLUTE COUNT (BEAKER) (test 5.31 K/ L 1.78-5.38 tdbb=504) LYMPHOCYTES ABSOLUTE COUNT (BEAKER) (test 2.88 K/ L 1.32-3.57 yepq=308) MONOCYTES ABSOLUTE COUNT (BEAKER) (test 0.84 K/ L 0.30-0.82 fzqr=214) EOSINOPHILS ABSOLUTE COUNT (BEAKER) (test 0.18 K/ L 0.04-0.54 dtqe=531) BASOPHILS ABSOLUTE COUNT (BEAKER) (test 0.05 K/ L 0.01-0.08 smqs=979) IMMATURE GRANULOCYTES-RELATIVE PERCENT (BEAKER) 0 % 0-1 (test epbq=7582) POCT-GLUCOSE [id number] 08:54:00 Test Item Value Reference Range Comments POC-GLUCOSE METER (BEAKER) 180 mg/dL 70-110 TESTED AT [address] (test othi=2763) [place] [address] BLOOD [id number] 08:01:00 Test Item Value Reference Range Comments CULTURE (BEAKER) (test cpeb=8508) No growth in 5 days BLOOD [id number] 02:01:00 Test Item Value Reference Range Comments CULTURE (BEAKER) (test agqj=7255) No growth in 5 days POCT-GLUCOSE [id number] 21:41:00 Test Item Value Reference Range Comments POC-GLUCOSE METER (BEAKER) 196 mg/dL 70-110 TESTED AT [address] (test khgm=0148) [place] [id number] POCT-GLUCOSE [id number] 18:08:00 Test Item Value Reference Range Comments POC-GLUCOSE METER (BEAKER) 200 mg/dL 70-110 TESTED AT [address] (test vuhk=3685) [place] [address] POCT-GLUCOSE [id number] 12:44:00 Test Item Value Reference Range Comments POC-GLUCOSE METER (BEAKER) 149 mg/dL 70-110 TESTED AT [address] (test vhld=0006) [place] [id number] POCT-GLUCOSE [id number] 09:15:00 Test Item Value Reference Range Comments POC-GLUCOSE METER (BEAKER) 253 mg/dL 70-110 TESTED AT [address] (test dobf=9875) [place] [address] [id number] 06:02:00 Test Item Value Reference Range Comments PHOSPHORUS (BEAKER) (test qgpc=674) 3.1 mg/dL 2.3-4.7 [id number] 06:02:00 Test Item Value Reference Range Comments MAGNESIUM (BEAKER) (test cctg=045) 1.3 mg/dL 1.6-2.6 HEPATIC FUNCTION [id number] 06:02:00 Test Item Value Reference Range Comments TOTAL PROTEIN (BEAKER) (test dmpj=378) 6.4 gm/dL 6.0-8.3 ALBUMIN (BEAKER) (test tvur=8624) 2.1 g/dL 3.5-5.0 BILIRUBIN TOTAL (BEAKER) (test nmzo=725) 1.9 mg/dL 0.2-1.2 BILIRUBIN DIRECT (BEAKER) (test yhua=067) 1.3 mg/dL 0.1-0.5 ALKALINE PHOSPHATASE (BEAKER) (test vglj=807) 89 U/L 40-150 AST (SGOT) (BEAKER) (test earc=231) 72 U/L 5-34 ALT (SGPT) (BEAKER) (test syjp=590) 49 U/L 6-55 POCT-GLUCOSE [id number] 22:05:00 Test Item Value Reference Range Comments POC-GLUCOSE METER (BEAKER) 206 mg/dL 70-110 TESTED AT [address] (test qarv=2211) [place] [id number] POCT-GLUCOSE [id number] 12:29:00 Test Item Value Reference Range Comments POC-GLUCOSE METER (BEAKER) 252 mg/dL 70-110 TESTED AT [address] (test gnwe=4934) [place] [id number] BASIC METABOLIC [id number] 10:57:00 Test Item Value Reference Range Comments SODIUM (BEAKER) (test 137 meq/L 136-145 iwfo=788) POTASSIUM (BEAKER) (test 4.6 meq/L 3.5-5.1 Specimen slightly jjqe=835) hemolyzed CHLORIDE (BEAKER) (test 102 meq/L 98-107 pzqt=618) CO2 (BEAKER) (test 27 meq/L 22-29 qtkf=871) BLOOD UREA NITROGEN 14 mg/dL 7-21 (BEAKER) (test qsgx=473) CREATININE (BEAKER) (test 0.87 mg/dL 0.57-1.25 Specimen slightly arlm=453) hemolyzed GLUCOSE RANDOM (BEAKER) 176 mg/dL 70-105 (test afdn=306) CALCIUM (BEAKER) (test 7.7 mg/dL 8.4-10.2 phvk=010) EGFR (BEAKER) (test 91 mL/min/1.73 sq m ESTIMATED GFR IS NOT hxyx=9385) ACCURATE CREATININE CLEARANCE IN PREDICTING GLOMERULAR FILTRATION RATE. ESTIMATED GFR IS NOT APPLICABLE FOR DIALYSIS PATIENTS. VANCOMYCIN LEVEL, [id number] 10:56:00 Test Item Value Reference Range Comments VANCOMYCIN RANDOM (BEAKER) (test rbpq=149) < ug/mL Reference Range: No NormalsAMIKACIN LEVEL, [id number] 10:56:00 Test Item Value Reference Range Comments AMIKACIN, RANDOM (BEAKER) (test tdoj=2574) < ug/mL No Normals Reference Range-No NormalsTherapeutic Range (ug/mL)Peak: 25.0-35.0 Trough: 4.0-8.0Toxic: >[id number] 10:55:00 Test Item Value Reference Range Comments MAGNESIUM (BEAKER) (test 2.0 mg/dL 1.6-2.6 Specimen moderately hemolyzed byja=546) [id number] 10:55:00 Test Item Value Reference Range Comments PHOSPHORUS (BEAKER) (test 3.2 mg/dL 2.3-4.7 Specimen moderately hemolyzed qpyb=667) HEPATIC FUNCTION [id number] 10:55:00 Test Item Value Reference Range Comments TOTAL PROTEIN (BEAKER) (test 6.8 gm/dL 6.0-8.3 Specimen moderately hemolyzed vnoq=056) ALBUMIN (BEAKER) (test 2.1 g/dL 3.5-5.0 Specimen moderately hemolyzed wqui=6971) BILIRUBIN TOTAL (BEAKER) (test 1.8 mg/dL 0.2-1.2 Specimen moderately hemolyzed dhbq=665) BILIRUBIN DIRECT (BEAKER) 1.0 mg/dL 0.1-0.5 Specimen moderately hemolyzed (test wvfj=626) ALKALINE PHOSPHATASE (BEAKER) 68 U/L 40-150 (test girp=197) AST (SGOT) (BEAKER) (test 123 U/L 5-34 Specimen moderately hemolyzed gtib=771) ALT (SGPT) (BEAKER) (test 61 U/L 6-55 Specimen moderately qlod=161) hemolyzed C-REACTIVE [id number] 10:55:00 Test Item Value Reference Range Comments C-REACTIVE PROTEIN (BEAKER) (test cjaj=429) 2.04 mg/dL 0.00-0.50 CBC W/PLT COUNT & AUTO [id number] 10:35:00 Test Item Value Reference Range Comments WHITE BLOOD CELL COUNT (BEAKER) (test qvmw=843) 8.1 K/ L 3.5-10.5 RED BLOOD CELL COUNT (BEAKER) (test lhzb=087) 4.08 M/ L 4.63-6.08 HEMOGLOBIN (BEAKER) (test xcpo=547) 12.7 GM/DL 13.7-17.5 HEMATOCRIT (BEAKER) (test urbg=219) 37.7 % 40.1-51.0 MEAN CORPUSCULAR VOLUME (BEAKER) (test fmsg=895) 92.4 fL 79.0-92.2 MEAN CORPUSCULAR HEMOGLOBIN (BEAKER) (test 31.1 pg 25.7-32.2 xwlb=905) MEAN CORPUSCULAR HEMOGLOBIN CONC (BEAKER) (test 33.7 GM/DL 32.3-36.5 hhny=592) RED CELL DISTRIBUTION WIDTH (BEAKER) (test 17.2 % 11.6-14.4 duyj=596) PLATELET COUNT (BEAKER) (test ppvv=409) 172 K/CU MM 150-450 MEAN PLATELET VOLUME (BEAKER) (test ilby=230) 11.7 fL 9.4-12.4 NUCLEATED RED BLOOD CELLS (BEAKER) (test 0 /100 WBC 0-0 lhwj=844) NEUTROPHILS RELATIVE PERCENT (BEAKER) (test 57 % zqxl=050) LYMPHOCYTES RELATIVE PERCENT (BEAKER) (test 31 % cihd=337) MONOCYTES RELATIVE PERCENT (BEAKER) (test 9 % bqgx=487) EOSINOPHILS RELATIVE PERCENT (BEAKER) (test 2 % zxrk=449) BASOPHILS RELATIVE PERCENT (BEAKER) (test 1 % pbfg=493) NEUTROPHILS ABSOLUTE COUNT (BEAKER) (test 4.63 K/ L 1.78-5.38 biun=089) LYMPHOCYTES ABSOLUTE COUNT (BEAKER) (test 2.48 K/ L 1.32-3.57 yelm=943) MONOCYTES ABSOLUTE COUNT (BEAKER) (test 0.74 K/ L 0.30-0.82 mgss=759) EOSINOPHILS ABSOLUTE COUNT (BEAKER) (test 0.18 K/ L 0.04-0.54 qard=288) BASOPHILS ABSOLUTE COUNT (BEAKER) (test 0.04 K/ L 0.01-0.08 dwln=429) IMMATURE GRANULOCYTES-RELATIVE PERCENT (BEAKER) 0 % 0-1 (test dwka=7071) POCT-GLUCOSE [id number] 07:28:00 Test Item Value Reference Range Comments POC-GLUCOSE METER (BEAKER) 129 mg/dL 70-110 TESTED AT [address] (test ipkb=7369) [place] [id number] POCT-GLUCOSE [id number] 21:54:00 Test Item Value Reference Range Comments POC-GLUCOSE METER (BEAKER) 194 mg/dL 70-110 TESTED AT [address] (test wjmg=7061) [place] [address] POCT-GLUCOSE [id number] 18:07:00 Test Item Value Reference Range Comments POC-GLUCOSE METER (BEAKER) 140 mg/dL 70-110 TESTED AT [address] (test hxvu=6722) [place] [address] POCT-GLUCOSE [id number] 11:33:00 Test Item Value Reference Range Comments POC-GLUCOSE METER (BEAKER) 202 mg/dL 70-110 TESTED AT [address] (test pmbh=3093) [place] [address] POCT-GLUCOSE [id number] 07:33:00 Test Item Value Reference Range Comments POC-GLUCOSE METER (BEAKER) 183 mg/dL 70-110 TESTED AT [address] (test emdd=6660) [place] [id number] BASIC METABOLIC [id number] 05:24:00 Test Item Value Reference Range Comments SODIUM (BEAKER) (test 134 meq/L 136-145 tbzn=352) POTASSIUM (BEAKER) (test 3.5 meq/L 3.5-5.1 clof=556) CHLORIDE (BEAKER) (test 100 meq/L 98-107 kezj=568) CO2 (BEAKER) (test 29 meq/L 22-29 moko=241) BLOOD UREA NITROGEN 13 mg/dL 7-21 (BEAKER) (test ehvz=605) CREATININE (BEAKER) (test 0.82 mg/dL 0.57-1.25 hooc=810) GLUCOSE RANDOM (BEAKER) 191 mg/dL 70-105 (test dyzn=982) CALCIUM (BEAKER) (test 7.3 mg/dL 8.4-10.2 vaxg=471) EGFR (BEAKER) (test 98 mL/min/1.73 sq m ESTIMATED GFR IS NOT gbuy=0736) ACCURATE CREATININE CLEARANCE IN PREDICTING GLOMERULAR FILTRATION RATE. ESTIMATED GFR IS NOT APPLICABLE FOR DIALYSIS PATIENTS. HEPATIC FUNCTION [id number] 05:22:00 Test Item Value Reference Range Comments TOTAL PROTEIN (BEAKER) (test gtmi=921) 5.7 gm/dL 6.0-8.3 ALBUMIN (BEAKER) (test frip=1776) 2.0 g/dL 3.5-5.0 BILIRUBIN TOTAL (BEAKER) (test ugsh=813) 1.9 mg/dL 0.2-1.2 BILIRUBIN DIRECT (BEAKER) (test hpjg=910) 1.3 mg/dL 0.1-0.5 ALKALINE PHOSPHATASE (BEAKER) (test egkd=826) 74 U/L 40-150 AST (SGOT) (BEAKER) (test ytta=719) 106 U/L 5-34 ALT (SGPT) (BEAKER) (test dryl=237) 61 U/L 6-55 CALCIUM, [id number] 04:52:00 Test Item Value Reference Range Comments CALCIUM IONIZED (BEAKER) (test byop=627) 1.06 mmol/L 1.12-1.27 PH, BLOOD (BEAKER) (test yljj=5706) 7.53 [id number] 04:15:00 Test Item Value Reference Range Comments MAGNESIUM (BEAKER) (test 2.1 mg/dL 1.6-2.6 Specimen moderately hemolyzed agrd=838) [id number] 04:15:00 Test Item Value Reference Range Comments PHOSPHORUS (BEAKER) (test 3.2 mg/dL 2.3-4.7 Specimen moderately hemolyzed culx=620) CBC W/PLT COUNT & AUTO [id number] 03:52:00 Test Item Value Reference Range Comments WHITE BLOOD CELL COUNT (BEAKER) (test sjoc=709) 6.7 K/ L 3.5-10.5 RED BLOOD CELL COUNT (BEAKER) (test jhru=831) 3.58 M/ L 4.63-6.08 HEMOGLOBIN (BEAKER) (test uhre=309) 11.1 GM/DL 13.7-17.5 HEMATOCRIT (BEAKER) (test bubh=087) 32.6 % 40.1-51.0 MEAN CORPUSCULAR VOLUME (BEAKER) (test mvny=565) 91.1 fL 79.0-92.2 MEAN CORPUSCULAR HEMOGLOBIN (BEAKER) (test 31.0 pg 25.7-32.2 janp=668) MEAN CORPUSCULAR HEMOGLOBIN CONC (BEAKER) (test 34.0 GM/DL 32.3-36.5 yumz=180) RED CELL DISTRIBUTION WIDTH (BEAKER) (test 17.0 % 11.6-14.4 kyst=811) PLATELET COUNT (BEAKER) (test bffu=991) 124 K/CU MM 150-450 MEAN PLATELET VOLUME (BEAKER) (test tqrk=156) 12.2 fL 9.4-12.4 NUCLEATED RED BLOOD CELLS (BEAKER) (test 0 /100 WBC 0-0 xicw=269) NEUTROPHILS RELATIVE PERCENT (BEAKER) (test 54 % gswv=855) LYMPHOCYTES RELATIVE PERCENT (BEAKER) (test 33 % lfkb=056) MONOCYTES RELATIVE PERCENT (BEAKER) (test 9 % nydy=100) EOSINOPHILS RELATIVE PERCENT (BEAKER) (test 3 % ulfe=176) BASOPHILS RELATIVE PERCENT (BEAKER) (test 1 % zvrq=766) NEUTROPHILS ABSOLUTE COUNT (BEAKER) (test 3.60 K/ L 1.78-5.38 roef=655) LYMPHOCYTES ABSOLUTE COUNT (BEAKER) (test 2.24 K/ L 1.32-3.57 gold=043) MONOCYTES ABSOLUTE COUNT (BEAKER) (test 0.59 K/ L 0.30-0.82 dren=279) EOSINOPHILS ABSOLUTE COUNT (BEAKER) (test 0.18 K/ L 0.04-0.54 cxbn=383) BASOPHILS ABSOLUTE COUNT (BEAKER) (test 0.04 K/ L 0.01-0.08 rhye=168) IMMATURE GRANULOCYTES-RELATIVE PERCENT (BEAKER) 1 % 0-1 (test prjv=9066) POCT-GLUCOSE [id number] 21:58:00 Test Item Value Reference Range Comments POC-GLUCOSE METER (BEAKER) 250 mg/dL 70-110 TESTED AT [address] (test ijju=9014) [place] [address] [id number] 20:39:00 Test Item Value Reference Range Comments MAGNESIUM (BEAKER) (test 1.6 mg/dL 1.6-2.6 Specimen slightly hemolyzed hmbn=556) [id number] 20:39:00 Test Item Value Reference Range Comments POTASSIUM (BEAKER) (test 3.9 meq/L 3.5-5.1 Specimen slightly hemolyzed wqni=305) POCT-GLUCOSE [id number] 17:48:00 Test Item Value Reference Range Comments POC-GLUCOSE METER (BEAKER) 96 mg/dL 70-110 TESTED AT [address] (test zajh=6292) [place] [address] POCT-GLUCOSE [id number] 11:14:00 Test Item Value Reference Range Comments POC-GLUCOSE METER (BEAKER) 317 mg/dL 70-110 Notified SKYLAR FERGUSON/TESTED AT [facility] (test xgiu=3884) [address] [place] [address] RAD, CHEST, 1 VIEW, NON [id number] 09:39:00Reason for exam:->sobShould this be performed at [...] MDReport Verified Date/Time: 05/10/2019 09:39:51 Reading Location: [facility] Radiology Reading Room BASIC METABOLIC [id number] 05:28:00 Test Item Value Reference Range Comments SODIUM (BEAKER) (test 133 meq/L 136-145 qdya=322) POTASSIUM (BEAKER) (test 3.6 meq/L 3.5-5.1 hsmk=585) CHLORIDE (BEAKER) (test 100 meq/L 98-107 tdoz=771) CO2 (BEAKER) (test 28 meq/L 22-29 xcwo=048) BLOOD UREA NITROGEN 13 mg/dL 7-21 (BEAKER) (test lhmo=857) CREATININE (BEAKER) (test 0.83 mg/dL 0.57-1.25 rumb=257) GLUCOSE RANDOM (BEAKER) 190 mg/dL 70-105 (test sxqe=787) CALCIUM (BEAKER) (test 7.2 mg/dL 8.4-10.2 pyhl=681) EGFR (BEAKER) (test 96 mL/min/1.73 sq m ESTIMATED GFR IS NOT musr=7636) ACCURATE CREATININE CLEARANCE IN PREDICTING GLOMERULAR FILTRATION RATE. ESTIMATED GFR IS NOT APPLICABLE FOR DIALYSIS PATIENTS. [id number] 05:24:00 Test Item Value Reference Range Comments PHOSPHORUS (BEAKER) (test agxa=506) 2.7 mg/dL 2.3-4.7 [id number] 05:24:00 Test Item Value Reference Range Comments MAGNESIUM (BEAKER) (test tfue=658) 1.8 mg/dL 1.6-2.6 HEPATIC FUNCTION [id number] 05:24:00 Test Item Value Reference Range Comments TOTAL PROTEIN (BEAKER) (test ksrl=965) 5.8 gm/dL 6.0-8.3 ALBUMIN (BEAKER) (test zrcn=1151) 2.0 g/dL 3.5-5.0 BILIRUBIN TOTAL (BEAKER) (test egzd=395) 1.8 mg/dL 0.2-1.2 BILIRUBIN DIRECT (BEAKER) (test fwzm=272) 1.2 mg/dL 0.1-0.5 ALKALINE PHOSPHATASE (BEAKER) (test daxg=177) 74 U/L 40-150 AST (SGOT) (BEAKER) (test gnyh=171) 107 U/L 5-34 ALT (SGPT) (BEAKER) (test yxqr=495) 66 U/L 6-55 CBC W/PLT COUNT & AUTO [id number] 04:46:00 Test Item Value Reference Range Comments WHITE BLOOD CELL COUNT (BEAKER) (test kkvq=486) 7.7 K/ L 3.5-10.5 RED BLOOD CELL COUNT (BEAKER) (test bzyd=743) 3.76 M/ L 4.63-6.08 HEMOGLOBIN (BEAKER) (test hsdp=769) 11.8 GM/DL 13.7-17.5 HEMATOCRIT (BEAKER) (test fmqt=502) 34.8 % 40.1-51.0 MEAN CORPUSCULAR VOLUME (BEAKER) (test msob=172) 92.6 fL 79.0-92.2 MEAN CORPUSCULAR HEMOGLOBIN (BEAKER) (test 31.4 pg 25.7-32.2 brox=273) MEAN CORPUSCULAR HEMOGLOBIN CONC (BEAKER) (test 33.9 GM/DL 32.3-36.5 srjo=609) RED CELL DISTRIBUTION WIDTH (BEAKER) (test 16.8 % 11.6-14.4 zuld=732) PLATELET COUNT (BEAKER) (test whxq=535) 187 K/CU MM 150-450 MEAN PLATELET VOLUME (BEAKER) (test ohql=936) 11.1 fL 9.4-12.4 NUCLEATED RED BLOOD CELLS (BEAKER) (test 0 /100 WBC 0-0 nffi=140) NEUTROPHILS RELATIVE PERCENT (BEAKER) (test 65 % aoxx=898) LYMPHOCYTES RELATIVE PERCENT (BEAKER) (test 24 % bjvm=886) MONOCYTES RELATIVE PERCENT (BEAKER) (test 7 % uvrh=904) EOSINOPHILS RELATIVE PERCENT (BEAKER) (test 2 % wesx=554) BASOPHILS RELATIVE PERCENT (BEAKER) (test 0 % weql=946) NEUTROPHILS ABSOLUTE COUNT (BEAKER) (test 4.98 K/ L 1.78-5.38 jcvp=914) LYMPHOCYTES ABSOLUTE COUNT (BEAKER) (test 1.87 K/ L 1.32-3.57 oklq=459) MONOCYTES ABSOLUTE COUNT (BEAKER) (test 0.56 K/ L 0.30-0.82 rsqq=821) EOSINOPHILS ABSOLUTE COUNT (BEAKER) (test 0.16 K/ L 0.04-0.54 wscy=294) BASOPHILS ABSOLUTE COUNT (BEAKER) (test 0.03 K/ L 0.01-0.08 taqf=835) IMMATURE GRANULOCYTES-RELATIVE PERCENT (BEAKER) 1 % 0-1 (test gnno=3599) POCT-GLUCOSE [id number] 22:14:00 Test Item Value Reference Range Comments POC-GLUCOSE METER (BEAKER) 159 mg/dL 70-110 TESTED AT [address] (test idpw=8380) [place] [address] [id number] 21:52:00 Test Item Value Reference Range Comments MAGNESIUM (BEAKER) (test 1.5 mg/dL 1.6-2.6 Specimen slightly hemolyzed sivc=549) [id number] 21:52:00 Test Item Value Reference Range Comments PHOSPHORUS (BEAKER) (test 2.9 mg/dL 2.3-4.7 Specimen slightly hemolyzed rcvo=619) [id number] 21:52:00 Test Item Value Reference Range Comments POTASSIUM (BEAKER) (test 3.6 meq/L 3.5-5.1 Specimen slightly hemolyzed qtoy=991) POCT-GLUCOSE [id number] 18:30:00 Test Item Value Reference Range Comments POC-GLUCOSE METER (BEAKER) 150 mg/dL 70-110 TESTED AT [address] (test eoef=9103) [place] [address] POCT-GLUCOSE [id number] 12:14:00 Test Item Value Reference Range Comments POC-GLUCOSE METER (BEAKER) 229 mg/dL 70-110 TESTED AT [address] (test fjtd=7123) [place] [id number] POCT-GLUCOSE [id number] 07:18:00 Test Item Value Reference Range Comments POC-GLUCOSE METER (BEAKER) 111 mg/dL 70-110 TESTED AT [address] (test thsk=5353) [place] [address] BASIC METABOLIC [id number] 05:43:00 Test Item Value Reference Range Comments SODIUM (BEAKER) (test 136 meq/L 136-145 iywr=766) POTASSIUM (BEAKER) (test 3.4 meq/L 3.5-5.1 usid=932) CHLORIDE (BEAKER) (test 102 meq/L 98-107 fmga=924) CO2 (BEAKER) (test 29 meq/L 22-29 towf=471) BLOOD UREA NITROGEN 15 mg/dL 7-21 (BEAKER) (test iyow=936) CREATININE (BEAKER) (test 0.75 mg/dL 0.57-1.25 mcqq=375) GLUCOSE RANDOM (BEAKER) 139 mg/dL 70-105 (test pxwu=934) CALCIUM (BEAKER) (test 7.4 mg/dL 8.4-10.2 rfok=622) EGFR (BEAKER) (test 108 mL/min/1.73 sq m ESTIMATED GFR IS NOT nzed=5950) ACCURATE CREATININE CLEARANCE IN PREDICTING GLOMERULAR FILTRATION RATE. ESTIMATED GFR IS NOT APPLICABLE FOR DIALYSIS PATIENTS. [id number] 05:40:00 Test Item Value Reference Range Comments PHOSPHORUS (BEAKER) (test hxtr=409) 3.1 mg/dL 2.3-4.7 [id number] 05:40:00 Test Item Value Reference Range Comments MAGNESIUM (BEAKER) (test wmnz=760) 1.9 mg/dL 1.6-2.6 HEPATIC FUNCTION [id number] 05:40:00 Test Item Value Reference Range Comments TOTAL PROTEIN (BEAKER) (test zcoj=687) 6.2 gm/dL 6.0-8.3 ALBUMIN (BEAKER) (test rzfg=2319) 2.3 g/dL 3.5-5.0 BILIRUBIN TOTAL (BEAKER) (test wrma=796) 2.0 mg/dL 0.2-1.2 BILIRUBIN DIRECT (BEAKER) (test lrry=343) 1.3 mg/dL 0.1-0.5 ALKALINE PHOSPHATASE (BEAKER) (test gumw=067) 69 U/L 40-150 AST (SGOT) (BEAKER) (test yslt=646) 116 U/L 5-34 ALT (SGPT) (BEAKER) (test bphm=113) 73 U/L 6-55 CBC (HEMOGRAM ONLY)2019-05-09 05:08:00 Test Item Value Reference Range Comments WHITE BLOOD CELL COUNT (BEAKER) (test gxmk=147) 7.2 K/ L 3.5-10.5 RED BLOOD CELL COUNT (BEAKER) (test rplj=103) 3.99 M/ L 4.63-6.08 HEMOGLOBIN (BEAKER) (test zfan=954) 12.3 GM/DL 13.7-17.5 HEMATOCRIT (BEAKER) (test wide=097) 36.9 % 40.1-51.0 MEAN CORPUSCULAR VOLUME (BEAKER) (test xirl=455) 92.5 fL 79.0-92.2 MEAN CORPUSCULAR HEMOGLOBIN (BEAKER) (test 30.8 pg 25.7-32.2 oeiy=171) MEAN CORPUSCULAR HEMOGLOBIN CONC (BEAKER) (test 33.3 GM/DL 32.3-36.5 fwpl=003) RED CELL DISTRIBUTION WIDTH (BEAKER) (test 16.5 % 11.6-14.4 mste=110) PLATELET COUNT (BEAKER) (test lamj=707) 197 K/CU MM 150-450 MEAN PLATELET VOLUME (BEAKER) (test awpk=307) 11.3 fL 9.4-12.4 NUCLEATED RED BLOOD CELLS (BEAKER) (test 0 /100 WBC 0-0 yakn=631) POCT-GLUCOSE [id number] 23:52:00 Test Item Value Reference Range Comments POC-GLUCOSE METER (BEAKER) 281 mg/dL 70-110 TESTED AT [address] (test dreu=9987) [place] [address] POCT-GLUCOSE [id number] 13:10:00 Test Item Value Reference Range Comments POC-GLUCOSE METER (BEAKER) 174 mg/dL 70-110 TESTED AT [address] (test ybah=4815) [place] [id number] POCT-GLUCOSE [id number] 08:09:00 Test Item Value Reference Range Comments POC-GLUCOSE METER (BEAKER) 185 mg/dL 70-110 TESTED AT [address] (test dgdc=5441) [place] [address] BASIC METABOLIC [id number] 04:58:00 Test Item Value Reference Range Comments SODIUM (BEAKER) (test 136 meq/L 136-145 wttp=844) POTASSIUM (BEAKER) (test 3.5 meq/L 3.5-5.1 mphl=416) CHLORIDE (BEAKER) (test 104 meq/L 98-107 urhw=818) CO2 (BEAKER) (test 26 meq/L 22-29 vajc=209) BLOOD UREA NITROGEN 18 mg/dL 7-21 (BEAKER) (test cwpn=652) CREATININE (BEAKER) (test 0.65 mg/dL 0.57-1.25 miik=381) GLUCOSE RANDOM (BEAKER) 117 mg/dL 70-105 (test mafx=621) CALCIUM (BEAKER) (test 7.7 mg/dL 8.4-10.2 mgqf=647) EGFR (BEAKER) (test 128 mL/min/1.73 sq m ESTIMATED GFR IS NOT huid=8157) ACCURATE CREATININE CLEARANCE IN PREDICTING GLOMERULAR FILTRATION RATE. ESTIMATED GFR IS NOT APPLICABLE FOR DIALYSIS PATIENTS. [id number] 04:51:00 Test Item Value Reference Range Comments PHOSPHORUS (BEAKER) (test mlaf=547) 2.6 mg/dL 2.3-4.7 [id number] 04:51:00 Test Item Value Reference Range Comments MAGNESIUM (BEAKER) (test mfom=860) 1.4 mg/dL 1.6-2.6 HEPATIC FUNCTION [id number] 04:51:00 Test Item Value Reference Range Comments TOTAL PROTEIN (BEAKER) (test gnbh=962) 6.0 gm/dL 6.0-8.3 ALBUMIN (BEAKER) (test oebn=6972) 2.3 g/dL 3.5-5.0 BILIRUBIN TOTAL (BEAKER) (test hkaq=254) 1.8 mg/dL 0.2-1.2 BILIRUBIN DIRECT (BEAKER) (test cauz=771) 1.1 mg/dL 0.1-0.5 ALKALINE PHOSPHATASE (BEAKER) (test nqnc=157) 63 U/L 40-150 AST (SGOT) (BEAKER) (test vwfd=607) 183 U/L 5-34 ALT (SGPT) (BEAKER) (test fonb=048) 95 U/L 6-55 CBC (HEMOGRAM ONLY)2019-05-08 04:22:00 Test Item Value Reference Range Comments WHITE BLOOD CELL COUNT (BEAKER) (test vabt=354) 8.5 K/ L 3.5-10.5 RED BLOOD CELL COUNT (BEAKER) (test ohuy=960) 3.80 M/ L 4.63-6.08 HEMOGLOBIN (BEAKER) (test vejo=142) 11.9 GM/DL 13.7-17.5 HEMATOCRIT (BEAKER) (test ocxc=424) 35.3 % 40.1-51.0 MEAN CORPUSCULAR VOLUME (BEAKER) (test mmmo=740) 92.9 fL 79.0-92.2 MEAN CORPUSCULAR HEMOGLOBIN (BEAKER) (test 31.3 pg 25.7-32.2 tura=878) MEAN CORPUSCULAR HEMOGLOBIN CONC (BEAKER) (test 33.7 GM/DL 32.3-36.5 arfc=433) RED CELL DISTRIBUTION WIDTH (BEAKER) (test 16.4 % 11.6-14.4 qsfb=705) PLATELET COUNT (BEAKER) (test grbx=597) 200 K/CU MM 150-450 MEAN PLATELET VOLUME (BEAKER) (test syjc=702) 11.6 fL 9.4-12.4 NUCLEATED RED BLOOD CELLS (BEAKER) (test 0 /100 WBC 0-0 bxaw=244) VANCOMYCIN LEVEL, [id number] 00:32:00 Test Item Value Reference Range Comments VANCOMYCIN TROUGH (BEAKER) (test rugu=248) 16.4 ug/mL 10.0-20.0 Please draw 30 minutes before 3rd doseIf vancomycin trough level > 20 mcg/mL , hold next vancomycin dose, and contact MD and pharmacist.POCT-GLUCOSE [id number] 21:39:00 Test Item Value Reference Range Comments POC-GLUCOSE METER (BEAKER) 255 mg/dL 70-110 TESTED AT [address] (test azrs=3269) [facility] [address] BLOOD CULTURE IDENTIFICATION [id number] 19:30:00 Test Item Value Reference Range Comments LISTERIA MONOCYTOGENES Not detected Not detected (test ghzd=0393269) STAPHYLOCOCCUS (test Detected Not detected txin=[id number]) STAPHYLOCOCCUS AUREUS Detected Not detected Methicillin-susceptible S. (test jhlw=9918308) aureus (MSSA)First-line therapy: Cefazolin or Oxacillin (Oxacillin preferred if FUNCTIONAL TESTER TYPEWRITERS involvement) ID CONSULTATION REQUIREDStaphylococcus aureus DETECTEDMecA NOT DETECTED Reference Range: Not Detected STREPTOCOCCUS (test Not detected Not detected nbuz=7284143) STREPTOCOCCUS AGALACTIAE Not detected Not detected (GROUP B) (test bbab=0889659) STREPTOCOCCUS PNEUMONIAE Not detected Not detected (test awld=4912527) STREPTOCOCCUS PYOGENES Not detected Not detected (GROUP A) (test iexr=2216784) ACINETOBACTER BAUMANNII Not detected Not detected (test pvme=7560244) HAEMOPHILUS INFLUENZAE Not detected Not detected (test qejp=6767022) NEISSERIA MENINGITIDIS Not detected Not detected (test uwsh=9258589) ENTEROBACTERIACEAE (test Not detected Not detected nrlo=2601562) ENTEROBACTER CLOACOE Not detected Not detected COMPLEX (test ecni=3143295) KLEBSIELLA OXYTOCA (test Not detected Not detected eeod=5695139) KLEBSIELLA PNEUMONIAE Not detected Not detected (test gmct=9738) PROTEUS (test Not detected Not detected szfq=5016485) SERRATIA MARCESCENS (test Not detected Not detected jglv=8474166) ESTEPHANIA ALBICANS (test Not detected Not detected kyhm=4524904) ESTEPHANIA GLABRATA (test Not detected Not detected cuca=3700684) ESTEPHANIA KRUSEI (test Not detected Not detected bcwu=5179819) ESTEPHANIA PARAPSILOSIS (test Not detected Not detected ysru=9302905) ESTEPHANIA TROPICALIS (test Not detected Not detected evtu=8276647) ESCHERICHIA COLI (test Not detected Not detected tldj=7628023) METHICILLIN-RESISTANCE Not detected Not detected GENE (test gqvx=1661739) VANCOMYCIN-RESISTANCE GENE Not detected (test wqni=2783431) CARBAPENEM-RESISTANCE GENE Not detected (test rkox=9961648) ENTEROCOCCUS-BEAKER (test Not detected Not detected qmgl=8008106) PSEUDOMONAS Not detected Not detected AERUGINOSA-BEAKER (test rbxm=5188125) Other bacteria and resistance markers not targeted by this PCR panel cannot be excluded; therefore clinical correlation and follow up of serology, culture results, and other molecular studies is required. The results are not intended to be used as the sole means for clinical diagnosis or patient management decisions. This sample was tested at the [facility] using the [employer] Blood Culture ID Panel. It is FDA cleared and has been verified and approved by the [facility] for clinical use. This laboratory is CLIA-certified and College ofAmerican Pathologists (CAP)-accredited to perform high complexity testing.POCT-GLUCOSE [id number] 18:25:00 Test Item Value Reference Range Comments POC-GLUCOSE METER (BEAKER) 164 mg/dL 70-110 TESTED AT [facility] [address] [place] [address] (test uumf=8515) [place] [id number] POCT-GLUCOSE [id number] 12:10:00 Test Item Value Reference Range Comments POC-GLUCOSE METER (BEAKER) 129 mg/dL 70-110 TESTED AT [address] (test pwmo=2588) [facility] [address] POCT-GLUCOSE [id number] 08:50:00 Test Item Value Reference Range Comments POC-GLUCOSE METER (BEAKER) 147 mg/dL 70-110 TESTED AT [facility] [address] (test dlvp=0788) [facility] [address] BASIC METABOLIC [id number] 06:39:00 Test Item Value Reference Range Comments SODIUM (BEAKER) (test 135 meq/L 136-145 mnve=050) POTASSIUM (BEAKER) (test 4.1 meq/L 3.5-5.1 lubo=038) CHLORIDE (BEAKER) (test 105 meq/L 98-107 safk=168) CO2 (BEAKER) (test 26 meq/L 22-29 sabr=718) BLOOD UREA NITROGEN 20 mg/dL 7-21 (BEAKER) (test owsm=047) CREATININE (BEAKER) (test 0.78 mg/dL 0.57-1.25 qegf=696) GLUCOSE RANDOM (BEAKER) 153 mg/dL 70-105 (test vtah=714) CALCIUM (BEAKER) (test 7.5 mg/dL 8.4-10.2 vvdu=209) EGFR (BEAKER) (test 103 mL/min/1.73 sq m ESTIMATED GFR IS NOT cwgb=2000) ACCURATE CREATININE CLEARANCE IN PREDICTING GLOMERULAR FILTRATION RATE. ESTIMATED GFR IS NOT APPLICABLE FOR DIALYSIS PATIENTS. [id number] 06:36:00 Test Item Value Reference Range Comments PHOSPHORUS (BEAKER) (test nmlv=983) 2.9 mg/dL 2.3-4.7 [id number] 06:36:00 Test Item Value Reference Range Comments MAGNESIUM (BEAKER) (test dmtg=078) 1.8 mg/dL 1.6-2.6 HEPATIC FUNCTION [id number] 06:36:00 Test Item Value Reference Range Comments TOTAL PROTEIN (BEAKER) (test odti=214) 5.7 gm/dL 6.0-8.3 ALBUMIN (BEAKER) (test lbby=4336) 2.2 g/dL 3.5-5.0 BILIRUBIN TOTAL (BEAKER) (test yfef=322) 1.9 mg/dL 0.2-1.2 BILIRUBIN DIRECT (BEAKER) (test agsp=720) 1.2 mg/dL 0.1-0.5 ALKALINE PHOSPHATASE (BEAKER) (test gdxx=744) 59 U/L 40-150 AST (SGOT) (BEAKER) (test eoas=246) 195 U/L 5-34 ALT (SGPT) (BEAKER) (test qvtv=042) 87 U/L 6-55 [id number] 05:03:00 Test Item Value Reference Range Comments PROTIME (BEAKER) (test vlgy=154) 16.2 seconds 11.9-14.2 INR (BEAKER) (test adyz=941) 1.4 <=5.9 PARTIAL THROMBOPLASTIN TIME (BEAKER) (test 32.0 seconds 22.5-36.0 haxu=682) Effective 04/24/2019: PT Reference Range ChangeNew: 11.9-14.2 Previous: 11.7- 14.7RECOMMENDED COUMADIN/WARFARIN INR THERAPY RANGESSTANDARD DOSE: 2.0-3.0 Includes: PROPHYLAXIS for venous thrombosis, systemic embolization; TREATMENT for venous thrombosis and/or pulmonary embolus.HIGH RISK: Target INR is2.5-3.5 for patients wiht mechanical heart valves.CBC (HEMOGRAM ONLY)2019-05-07 04:58:00 Test Item Value Reference Range Comments WHITE BLOOD CELL COUNT (BEAKER) (test dxpv=015) 9.5 K/ L 3.5-10.5 RED BLOOD CELL COUNT (BEAKER) (test xeua=302) 3.74 M/ L 4.63-6.08 HEMOGLOBIN (BEAKER) (test alla=668) 11.7 GM/DL 13.7-17.5 HEMATOCRIT (BEAKER) (test ucch=368) 35.1 % 40.1-51.0 MEAN CORPUSCULAR VOLUME (BEAKER) (test xbaw=489) 93.9 fL 79.0-92.2 MEAN CORPUSCULAR HEMOGLOBIN (BEAKER) (test 31.3 pg 25.7-32.2 whsz=928) MEAN CORPUSCULAR HEMOGLOBIN CONC (BEAKER) (test 33.3 GM/DL 32.3-36.5 srtv=758) RED CELL DISTRIBUTION WIDTH (BEAKER) (test 16.2 % 11.6-14.4 ikkp=724) PLATELET COUNT (BEAKER) (test ajqt=281) 200 K/CU MM 150-450 MEAN PLATELET VOLUME (BEAKER) (test pwdy=982) 12.2 fL 9.4-12.4 NUCLEATED RED BLOOD CELLS (BEAKER) (test 0 /100 WBC 0-0 agca=153) POCT-GLUCOSE [id number] 00:04:00 Test Item Value Reference Range Comments POC-GLUCOSE METER (BEAKER) 263 mg/dL 70-110 TESTED AT [facility] [address] [facility] (test uyum=1845) [facility] [address] POCT-GLUCOSE [id number] 18:29:00 Test Item Value Reference Range Comments POC-GLUCOSE METER (BEAKER) 125 mg/dL 70-110 TESTED AT [address] (test ihbs=3923) [facility] [address] BODY FLUID [id number] 15:37:00 Test Item Value Reference Range Comments CRYSTALS, BODY FLUID No crystals seen. (BEAKER) (test sqrr=0439) [id number] Myranda Young MD (BEAKER) (test cqer=5260) (electronic signature) BASIC METABOLIC [id number] 13:20:00 Test Item Value Reference Range Comments SODIUM (BEAKER) (test 132 meq/L 136-145 mhtj=559) POTASSIUM (BEAKER) (test 4.2 meq/L 3.5-5.1 Specimen slightly wixj=734) hemolyzed CHLORIDE (BEAKER) (test 106 meq/L 98-107 vidw=180) CO2 (BEAKER) (test 21 meq/L 22-29 qssl=606) BLOOD UREA NITROGEN 20 mg/dL 7-21 (BEAKER) (test arym=142) CREATININE (BEAKER) (test 0.68 mg/dL 0.57-1.25 Specimen slightly ekxi=980) hemolyzed GLUCOSE RANDOM (BEAKER) 106 mg/dL 70-105 (test srqh=324) CALCIUM (BEAKER) (test 7.3 mg/dL 8.4-10.2 btyn=318) EGFR (BEAKER) (test 121 mL/min/1.73 sq m ESTIMATED GFR IS NOT jzvh=2365) ACCURATE CREATININE CLEARANCE IN PREDICTING GLOMERULAR FILTRATION RATE. ESTIMATED GFR IS NOT APPLICABLE FOR DIALYSIS PATIENTS. Specimen slightly [id number] 13:18:00 Test Item Value Reference Range Comments MAGNESIUM (BEAKER) (test 1.8 mg/dL 1.6-2.6 Specimen slightly hemolyzed alyg=501) [id number] 13:18:00 Test Item Value Reference Range Comments PHOSPHORUS (BEAKER) (test 2.7 mg/dL 2.3-4.7 Specimen slightly hemolyzed nlmh=024) HEPATIC FUNCTION [id number] 13:18:00 Test Item Value Reference Range Comments TOTAL PROTEIN (BEAKER) (test 5.6 gm/dL 6.0-8.3 Specimen slightly hemolyzed azlg=895) ALBUMIN (BEAKER) (test 2.2 g/dL 3.5-5.0 Specimen slightly hemolyzed ybxx=9786) BILIRUBIN TOTAL (BEAKER) (test 2.7 mg/dL 0.2-1.2 Specimen slightly hemolyzed gygp=586) BILIRUBIN DIRECT (BEAKER) (test 1.2 mg/dL 0.1-0.5 Specimen slightly hemolyzed goed=146) ALKALINE PHOSPHATASE (BEAKER) 60 U/L 40-150 (test auaf=529) AST (SGOT) (BEAKER) (test 223 U/L 5-34 Specimen slightly hemolyzed ltdi=790) ALT (SGPT) (BEAKER) (test 83 U/L 6-55 Specimen slightly hemolyzed phwh=973) Specimen slightly ictericPOCT-GLUCOSE [id number] 12:55:00 Test Item Value Reference Range Comments POC-GLUCOSE METER (BEAKER) 117 mg/dL 70-110 TESTED AT [address] (test bpxa=2727) [place] [id number] VANCOMYCIN LEVEL, [id number] 12:14:00 Test Item Value Reference Range Comments VANCOMYCIN TROUGH (BEAKER) (test ixdr=339) 10.0 ug/mL 10.0-20.0 POCT-GLUCOSE [id number] 06:26:00 Test Item Value Reference Range Comments POC-GLUCOSE METER (BEAKER) 121 mg/dL 70-110 TESTED AT [address] (test sdjo=6373) [facility] [address] RAPID DRUG SCREEN, [id number] 04:06:00 Test Item Value Reference Range Comments BARBITURATE URINE (BEAKER) (test afws=827) Negative Negative BENZODIAZEPINE SCREEN URINE (BEAKER) (test Negative Negative vbiw=487) COCAINE (METAB.) SCREEN (BEAKER) (test aggy=5989) Negative Negative METHADONE SCREEN (BEAKER) (test duhn=5112) Negative Negative OPIATE SCREEN URINE (BEAKER) (test mhxm=475) Positive Negative CANNABINOID SCREEN URINE (BEAKER) (test hezm=387) Negative Negative AMPH/METHAMPH SCREEN (BEAKER) (test nuts=1499) Positive Negative PHENCYCLIDINE SCREEN URINE (BEAKER) (test wxul=797) Negative Negative DRUG CUTOFF CONC.Cocaine 300 ng/mL Cannabinoid 50 ng/mLBenzodiazepine 200 ng/mLBarbiturate 200 ng/ mLPhencyclidine 25 ng/mLOpiate 300 ng/mLMethadone 300 ng/mLAmphetamine/ 1000 ng/mL MethamphetamineThis assay provides an unconfirmed qualitative test result for the clinical management of patients in emergency situations. Chain of custody not maintained. Some gavw-kgf-cevnklx medications, as well as adulterants, may cause inaccurate results. Clinical correlation should be applied. A more comprehensivedrug screen or confirmation of a detected drug may be performed upon request.POCT-GLUCOSE [id number] 00 :34:00 Test Item Value Reference Range Comments POC-GLUCOSE METER (BEAKER) 171 mg/dL 70-110 TESTED AT [facility] [address] [facility] (test wese=9496) [facility] [address] POCT-GLUCOSE [id number] 18:00:00 Test Item Value Reference Range Comments POC-GLUCOSE METER (BEAKER) 283 mg/dL 70-110 TESTED AT [place] [id number] [facility] (test kgan=3181) [place] [address] RAD, LEG, [id number] 17:07:00Reason for exam:->evaluate for air concerning for [...] MDReport Verified Date/Time: 05/05/2019 17:07:13 Reading Location: [facility] C013X Ortho Consult Reading Room [id number] 16:54:00 Test Item Value Reference Range Comments PARTIAL THROMBOPLASTIN TIME (BEAKER) (test 32.0 seconds 22.5-36.0 bolu=176) PROTHROMBIN TIME/[id number] 16:53:00 Test Item Value Reference Range Comments PROTIME (BEAKER) (test shxx=226) 17.3 seconds 11.9-14.2 INR (BEAKER) (test uoqq=280) 1.5 <=5.9 Effective 04/24/2019: PT Reference Range ChangeNew: 11.9-14.2 Previous: 11.7- 14.7RECOMMENDED COUMADIN/WARFARIN INR THERAPY RANGESSTANDARD DOSE: 2.0-3.0 Includes: PROPHYLAXIS for venous thrombosis, systemic embolization; TREATMENT for venous thrombosis and/or pulmonary embolus.HIGH RISK: Target INR is2.5-3.5 for patients wiht mechanical heart valves.CBC W/PLT COUNT & AUTO [id number] 16:46:00 Test Item Value Reference Range Comments WHITE BLOOD CELL COUNT (BEAKER) (test tcgl=130) 10.2 K/ L 3.5-10.5 RED BLOOD CELL COUNT (BEAKER) (test ywoy=438) 4.12 M/ L 4.63-6.08 HEMOGLOBIN (BEAKER) (test wjwd=126) 12.7 GM/DL 13.7-17.5 HEMATOCRIT (BEAKER) (test kyga=691) 38.5 % 40.1-51.0 MEAN CORPUSCULAR VOLUME (BEAKER) (test mjpj=214) 93.4 fL 79.0-92.2 MEAN CORPUSCULAR HEMOGLOBIN (BEAKER) (test 30.8 pg 25.7-32.2 ysqa=278) MEAN CORPUSCULAR HEMOGLOBIN CONC (BEAKER) (test 33.0 GM/DL 32.3-36.5 blmt=024) RED CELL DISTRIBUTION WIDTH (BEAKER) (test 16.2 % 11.6-14.4 yhtx=522) PLATELET COUNT (BEAKER) (test izak=666) 169 K/CU MM 150-450 MEAN PLATELET VOLUME (BEAKER) (test pnyk=440) 12.6 fL 9.4-12.4 NUCLEATED RED BLOOD CELLS (BEAKER) (test 0 /100 WBC 0-0 jjjv=398) NEUTROPHILS RELATIVE PERCENT (BEAKER) (test 71 % igqo=047) LYMPHOCYTES RELATIVE PERCENT (BEAKER) (test 16 % tvpz=839) MONOCYTES RELATIVE PERCENT (BEAKER) (test 10 % bvrq=402) EOSINOPHILS RELATIVE PERCENT (BEAKER) (test 2 % jlac=505) BASOPHILS RELATIVE PERCENT (BEAKER) (test 0 % pgfx=863) NEUTROPHILS ABSOLUTE COUNT (BEAKER) (test 7.16 K/ L 1.78-5.38 livi=705) LYMPHOCYTES ABSOLUTE COUNT (BEAKER) (test 1.64 K/ L 1.32-3.57 zccg=784) MONOCYTES ABSOLUTE COUNT (BEAKER) (test 1.04 K/ L 0.30-0.82 jhag=478) EOSINOPHILS ABSOLUTE COUNT (BEAKER) (test 0.17 K/ L 0.04-0.54 kthb=162) BASOPHILS ABSOLUTE COUNT (BEAKER) (test 0.03 K/ L 0.01-0.08 fmsi=015) IMMATURE GRANULOCYTES-RELATIVE PERCENT (BEAKER) 1 % 0-1 (test rfga=6698) B-TYPE NATRIURETIC FACTOR (BNP)2019-05-05 16:37:00 Test Item Value Reference Range Comments B-TYPE NATRIURETIC PEPTIDE (BEAKER) (test 1891 pg/mL 0-100 cgmi=569) BODY FLUID CELL COUNT WITH [id number] 16:32:00 Test Item Value Reference Range Comments APPEARANCE FLUID (BEAKER) (test mawm=647) Cloudy Clear COLOR FLUID (BEAKER) (test mjty=351) Red Colorless, Straw RBC FLUID (BEAKER) (test uxwa=677) 75657 /cu mm <=1 ADJUSTED WBC FLUID (BEAKER) (test jowl=9996) 2560 /cu mm <=5 LINING CELLS (BEAKER) (test rozc=3438) 0 /cu mm <=1 NEUTROPHILS FLUID (BEAKER) (test knkj=8993) 94 % LYMPHS FLUID (BEAKER) (test ftuw=320) 2 % MONO/MACROPHAGE FLUID (BEAKER) (test swra=016) 4 % EOSINOPHILS FLUID (BEAKER) (test txsa=049) 0 % BASO FLUID (BEAKER) (test eyil=564) 0 % CONTAINER BODY FLUID (BEAKER) (test yuuv=9681) Sterile Cup BASIC METABOLIC [id number] 16:31:00 Test Item Value Reference Range Comments SODIUM (BEAKER) (test 133 meq/L 136-145 pnxt=164) POTASSIUM (BEAKER) (test 3.9 meq/L 3.5-5.1 dcow=619) CHLORIDE (BEAKER) (test 103 meq/L 98-107 felx=604) CO2 (BEAKER) (test 26 meq/L 22-29 uvzu=570) BLOOD UREA NITROGEN 18 mg/dL 7-21 (BEAKER) (test kbrr=488) CREATININE (BEAKER) (test 0.71 mg/dL 0.57-1.25 kkap=288) GLUCOSE RANDOM (BEAKER) 152 mg/dL 70-105 (test vyrl=063) CALCIUM (BEAKER) (test 7.8 mg/dL 8.4-10.2 sdxg=534) EGFR (BEAKER) (test 115 mL/min/1.73 sq m ESTIMATED GFR IS NOT tteo=4686) ACCURATE CREATININE CLEARANCE IN PREDICTING GLOMERULAR FILTRATION RATE. ESTIMATED GFR IS NOT APPLICABLE FOR DIALYSIS PATIENTS. [id number] 16:30:00 Test Item Value Reference Range Comments PHOSPHORUS (BEAKER) (test wtrw=524) 2.3 mg/dL 2.3-4.7 [id number] 16:30:00 Test Item Value Reference Range Comments MAGNESIUM (BEAKER) (test qgql=972) 1.4 mg/dL 1.6-2.6 C-REACTIVE [id number] 16:30:00 Test Item Value Reference Range Comments C-REACTIVE PROTEIN (BEAKER) (test iohn=864) 3.40 mg/dL 0.00-0.50 RAD, CHEST, 1 VIEW, NON [id number] 14:59:00Reason for exam:->dyspnea, history of CHF and [...] Watson Verified Date/Time: 05/05/2019 14:59:38 Reading Location: [place] [id number] CT Body Reading Room RAD, KNEE, 3 VIEWS, [id number] 13: 28:00Reason for exam:->concern for septic arthritisShould this be performed at the bedside?->YesFINAL REPORT Right knee. HISTORY: Concern for septic arthritis. COMPARISON STUDY: None available. FINDINGS: Four views of the right knee demonstrate no evidence of fracture, malalignment or effusion. Atherosclerosis is seen. Signed: Tremayne Lundberg Verified Date/Time: 05/05/2019 13:28:26 Reading Location: [place] [id number] Ortho Consult Reading Room POCT-GLUCOSE [id number] 12:03:00 Test Item Value Reference Range Comments POC-GLUCOSE METER (ELIZABETH) 209 mg/dL 70-110 TESTED AT [facility] [address] [place] [address] (test infa=5181) [facility] [id number]
[2019-11-12] MEDS ORDERED: METHYLPREDNISOLONE 125 MG INJ ONE (19:27)
[2019-11-12] MEDS ORDERED: FUROSEMIDE 40 MG/4 ML VIAL ONE (19:28)
[2019-11-12] MEDS ORDERED: ALBUTEROL 2.5 MG/3 ML NEB SOL ONE (19:28)
[2019-11-12] MEDS ORDERED: LORazepam 2 MG/ML VIAL ONE (20:00)
[2019-11-12 20:08] LABS: Protime INR 1.35
[2019-11-12 20:15] LABS: Absolute Lymphocytes (CBC) 2.5 K/uL (0.7-4.9); Basophils % 1.1 % (0-1.3); Hematocrit 37.2 % (39.6-49.0); Lymphocytes % 30.5 % (15.3-44.8); RBC Red Blood Cell Count 3.99 M/uL (4.33-5.43)
[2019-11-12 20:25] LABS: Albumin 2.4 g/dL (3.4-5.0); Bilirubin Direct 0.6 mg/dL (0-0.2); Bilirubin Total 1.3 mg/dL (0.2-1.0); Magnesium 1.9 mg/dL (1.8-2.4); Potassium 3.8 mmol/L (3.5-5.1); Protein, Total 7.3 g/dL (6.4-8.2); Troponin (Emerg Dept Use Only) 0.11 ng/mL (0.0-0.045)
--- NOTE | 2019-11-12 20:30 | RAD REPORT ---
EXAM DESCRIPTION: RAD - Chest Single View - 11/12/2019 7:44 pm CLINICAL HISTORY: Dyspnea COMPARISON: September 13 TECHNIQUE: AP portable chest image was obtained 1938 hours . FINDINGS: Lung volumes are low. There is a large right pleural effusion occupying substantial portio n bone in the thorax. A much smaller left pleural effusion is present. Cardiac silhouette is enlarged . Central vasculature is prominent. No pneumothorax. No acute bony abnormality seen. No acute aortic findings suspected. IMPRESSION: Large right pleural effusion increased from prior imaging. Small left pleural effusion. Cardiomegaly and increased vasculature indicates failure or volume overload.
--- NOTE | 2019-11-12 20:56 | ER ---
Nurse's Notes [facility] Name: Bob Santana Age: 54 yrs Sex: Male : 1965 Arrival Date: 11/12/2019 Time: 19:19 Bed 2 Private MD: Diagnosis: Acute combined systolic (congestive) and diastolic (congestive) heart failure;Chronic obstructive pulmonary disease with (acute) exacerbation;Acute respiratory failure Presentation: 11/12 19:05 Presenting complaint: EMS states: Pt reports being swollen and having pitting edema in jb4 both arms and legs. His abdomen is distended. Reports feeling like he has fluid volume overload with difficulty breathing and SOB. 19:05 Transition of care: patient was not received from another setting of care. Onset of jb4 symptoms was November 12, 2019. Risk Assessment: Do you want to hurt yourself or someone else? Patient reports no desire to harm self or others. Initial Sepsis Screen: Does the patient meet any 2 criteria? RR > 20 per min. HR > 90 bpm. Yes Does the patient have a suspected source of infection? Yes: Skin breakdown/wound If YES to both, name of provider notified: Ricardo VILLASENOR. Care prior to arrival: None. 19:05 Method Of Arrival: EMS: [facility] jb4 19:05 Acuity: KISHAN 2 jb4 Historical: - Allergies: 19:05 No Known Allergies; jb4 - Home Meds: 19:05 buspirone 10 mg Oral tab 1 tab 3 times per day [Active]; digoxin 250 mcg Oral tab 1 tab jb4 once daily [Active]; furosemide 40 mg Oral tab 1 tab 2 times per day [Active]; aspirin 81 mg Oral chew [Active]; - PMHx: 19:05 cardiomegaly; CHF; COPD; Hepatitis; Hypertension; jb4 - PSHx: 19:05 None; jb4 - Immunization history:: Adult Immunizations up to date. - Social history:: Smoking status: Patient uses tobacco products, 4 cigarettes/ day, Patient/guardian denies using alcohol. - Ebola Screening: : No symptoms or risks identified at this time. Screenin:35 Abuse screen: Denies threats or abuse. Nutritional screening: No deficits noted. jb4 Tuberculosis screening: No symptoms or risk factors identified. Fall Risk IV access (20 points). Gait- Weak (10 pts.). Total Metzger Fall Scale indicates Low Risk Score (25-44 pts). Fall prevention measures have been instituted. Side Rails Up X 2 Placed close to Nursing Station Frequent Obs/Assesments occuring Family Present and informed to notify staff if they need to leave bedside As available Patient and Family Educated on Fall Prevention Program and strategies. Assessment: 19:35 General: Appears distressed, uncomfortable, Behavior is calm, cooperative, appropriate jb4 for age. Pain: Denies pain. Neuro: Level of Consciousness is awake, alert, obeys commands, Oriented to person, place, time, situation. Cardiovascular: Patient's skin is warm and dry. Rhythm is irregular. Respiratory: Airway is patent Respiratory effort is labored, Respiratory pattern is tachypnea Breath sounds with wheezes bilaterally. GI: No signs and/or symptoms were reported involving the gastrointestinal system. : No signs and/or symptoms were reported regarding the genitourinary system. EENT: No signs and/or symptoms were reported regarding the EENT system. Derm: Skin. Musculoskeletal: Circulation, motion, and sensation intact. Range of motion: intact in all extremities. 20:30 Reassessment: No changes from previously documented assessment. Patient and/or family jb4 updated on plan of care and expected duration. Pain level reassessed. PT is on bipap. Respirations remain labored, and tachypneic. 21:30 Reassessment: No changes from previously documented assessment. Patient and/or family jb4 updated on plan of care and expected duration. Pain level reassessed. Pt is alert and oriented x3. Remains on bipap, respirations labored and tachypneic. 22:30 Reassessment: Patient and/or family updated on plan of care and expected duration. Pain jb4 level reassessed. Pt remains on bipap, respirations wheezing has decreased but is still noted in right lung chakraborty. Respirations are even, labored, and tachypneic. 23:30 Reassessment: Report called to Lalitha. Pt reports feeling better. Denies pain, jb4 Respirations are even, tachypneic and labored. Pt placed on 4L NC for transfer to ICU. Vital Signs: 19:05 BP 137 / 86; Pulse 120; Resp 28; Temp 98.0(O); Pulse Ox 98% on R/A; Weight 108.86 kg jb4 (R); Height 5 ft. 10 in. (177.80 cm) (R); Pain 0/10; 20:15 BP 121 / 91; Pulse 128; Resp 16; Pulse Ox 100% ; ao 21:00 BP 123 / 94; Pulse 129; Resp 28; Pulse Ox 100% on BiPAP; ao 22:00 BP 143 / 91; Pulse 128; Resp 30; Pulse Ox 100% on BiPAP; ao 23:02 BP 145 / 90; Pulse 127; Resp 28; Pulse Ox 96% on BiPAP; ao 23:30 BP 137 / 71; Pulse 120; Resp 20; Pulse Ox 96% on 4 lpm NC; jb4 19:05 Body Mass Index 34.44 (108.86 kg, 177.80 cm) jb4 ED Course: 19:05 Arm band placed on right wrist. jb4 19:19 Patient arrived in ED. tl1 19:22 Ricardo Wilkins PA is PHCP. jr8 19:22 Harry Day MD is Attending Physician. jr8 19:28 Beto Bernard RN is Primary Nurse. jb4 19:30 Triage completed. jb4 19:35 Patient has correct armband on for positive identification. Placed in gown. Bed in low jb4 position. Call light in reach. Side rails up X2. monitoring analyst on. Pulse ox on. NIBP on. 19:37 Inserted saline lock: 22 gauge ,using aseptic technique. Right upper chest. ao 20:54 Amy Nowak MD is Hospitalizing Provider. jr8 23:04 No provider procedures requiring assistance completed. Patient admitted, IV remains in jb4 place. Administered Medications: 19:36 Drug: Lasix 80 mg Route: IVP; Site: Other; ao 23:05 Follow up: Response: No adverse reaction jb4 19:36 Drug: Albuterol 2.5 mg Route: Inhalation; ao 19:36 Drug: SOLU-Medrol 125 mg Route: IVP; Site: Other; ao 21:00 Follow up: Response: No adverse reaction; Wheezing diminished jb4 23:11 Follow up: Response: No adverse reaction jb4 20:03 Drug: Albuterol 2.5 mg Route: Inhalation; jb4 20:03 Drug: Ativan 0.5 mg Route: IVP; Site: left jugular; jb4 20:30 Follow up: Response: No adverse reaction; Anxiety decreased jb4 20:29 Drug: Albuterol 2.5 mg Route: Inhalation; jb4 21:27 Drug: Lovenox 1 mg/kg Route: Sub-Q; Site: right lower abdomen; jb4 23:10 Follow up: Response: No adverse reaction jb4 Outcome: 20:55 Decision to Hospitalize by Provider. jr8 23:30 Admitted to ICU accompanied by nurse, accompanied by tech, via stretcher, room 8, with jb4 oxygen, on monitor, with chart, Report called to SKYLAR Doty 23:30 Condition: stable 23:30 Discharge instructions given to patient, Instructed on the need for admit, Demonstrated understanding of instructions. 23:45 Patient left the ED. jb4 Signatures: Ricardo Wilkins PA PA jr8 Cayla Saldaña, RN RN tl1 Renzo Scales, RN RN ao Beto Bernard RN RN jb4 Corrections: (The following items were deleted from the chart) 23:02 22:00 BP 145 / 90; Pulse 127bpm; Resp 28bpm; Pulse Ox 96% BiPAP; ao ao
--- NOTE | 2019-11-12 20:56 | EDPHYS ---
Physician Documentation [facility] Name: Bob Santana Age: 54 yrs Sex: Male : 1965 Arrival Date: 11/12/2019 Time: 19:19 Bed 2 Private MD: ED Physician Harry Day HPI: 11/12 20:37 This 54 yrs old Male presents to ER via EMS with complaints of shortness of jr8 breath. 20:37 The patient has shortness of breath at rest. Onset: The symptoms/episode began/occurred jr8 gradually, 2 week(s) ago, and became worse and became persistent. Duration: The symptoms are continuous. The patient's shortness of breath is aggravated by talking, walking. Associated signs and symptoms: The patient has no apparent associated signs or symptoms. Severity of symptoms: At their worst the symptoms were moderate in the emergency department the symptoms are unchanged. The patient has experienced similar episodes in the past, a few times. The patient has not recently seen a physician. Patient with history of CHF. Stated that he started to become fluid overloaded in legs and abdomen. Now short of breath that has acutely become worse . Historical: - Allergies: 19:05 No Known Allergies; jb4 - Home Meds: 19:05 buspirone 10 mg Oral tab 1 tab 3 times per day [Active]; digoxin 250 mcg Oral tab 1 tab jb4 once daily [Active]; furosemide 40 mg Oral tab 1 tab 2 times per day [Active]; aspirin 81 mg Oral chew [Active]; - PMHx: 19:05 cardiomegaly; CHF; COPD; Hepatitis; Hypertension; jb4 - PSHx: 19:05 None; jb4 - Immunization history:: Adult Immunizations up to date. - Social history:: Smoking status: Patient uses tobacco products, 4 cigarettes/ day, Patient/guardian denies using alcohol. - Ebola Screening: : No symptoms or risks identified at this time. ROS: 20:46 Eyes: Negative for injury, pain, redness, and discharge, ENT: Negative for injury, jr8 pain, and discharge, Neck: Negative for injury, pain, and swelling, Abdomen/GI: Negative for abdominal pain, nausea, vomiting, diarrhea, and constipation, Back: Negative for injury and pain, MS/Extremity: Negative for injury and deformity, Skin: Negative for injury, rash, and discoloration, Neuro: Negative for headache, weakness, numbness, tingling, and seizure. 20:46 Cardiovascular: Positive for edema, orthopnea, Negative for chest pain. 20:46 Respiratory: Positive for dyspnea on exertion, shortness of breath, wheezing. Exam: 20:46 Eyes: Pupils equal round and reactive to light, extra-ocular motions intact. Lids and jr8 lashes normal. Conjunctiva and sclera are non-icteric and not injected. Cornea within normal limits. Periorbital areas with no swelling, redness, or edema. ENT: Nares patent. No nasal discharge, no septal abnormalities noted. Tympanic membranes are normal and external auditory canals are clear. Oropharynx with no redness, swelling, or masses, exudates, or evidence of obstruction, uvula midline. Mucous membranes moist. Neck: Trachea midline, no thyromegaly or masses palpated, and no cervical lymphadenopathy. Supple, full range of motion without nuchal rigidity, or vertebral point tenderness. No Meningismus. Abdomen/GI: Soft, non-tender, with normal bowel sounds. No distension or tympany. No guarding or rebound. No evidence of tenderness throughout. Skin: Warm, dry with normal turgor. Normal color with no rashes, no lesions, and no evidence of cellulitis. MS/ Extremity: Pulses equal, no cyanosis. Neurovascular intact. Full, normal range of motion. Neuro: Awake and alert, GCS 15, oriented to person, place, time, and situation. Cranial nerves II-XII grossly intact. Motor strength 5/5 in all extremities. Sensory grossly intact. Cerebellar exam normal. Normal gait. 20:46 Cardiovascular: Rate: tachycardic, Rhythm: regular, Pulses: Pulses are 2+ in right radial artery and left radial artery. Heart sounds: normal, normal S1and S2, no S3 or S4, no murmur, no rub, no gallop, Edema: 4+ edema to level of waist, pubic area, left upper thigh, left lower thigh, left knee, left midcalf, left ankle, left foot, left toes, right upper thigh, right lower thigh, right knee, right midcalf, right ankle, right foot and right toes, JVD: is not appreciated. 20:46 Respiratory: moderate respiratory distress is noted, Respirations: labored breathing, tachypnea, Breath sounds: rales, that are mild, are located in both bases, wheezing: expiratory that is moderate, is heard diffusely. Vital Signs: 19:05 BP 137 / 86; Pulse 120; Resp 28; Temp 98.0(O); Pulse Ox 98% on R/A; Weight 108.86 kg jb4 (R); Height 5 ft. 10 in. (177.80 cm) (R); Pain 0/10; 20:15 BP 121 / 91; Pulse 128; Resp 16; Pulse Ox 100% ; ao 21:00 BP 123 / 94; Pulse 129; Resp 28; Pulse Ox 100% on BiPAP; ao 22:00 BP 143 / 91; Pulse 128; Resp 30; Pulse Ox 100% on BiPAP; ao 23:02 BP 145 / 90; Pulse 127; Resp 28; Pulse Ox 96% on BiPAP; ao 23:30 BP 137 / 71; Pulse 120; Resp 20; Pulse Ox 96% on 4 lpm NC; jb4 19:05 Body Mass Index 34.44 (108.86 kg, 177.80 cm) jb4 MDM: 19:22 Patient medically screened. jr8 20:47 Data reviewed: vital signs, nurses notes, lab test result(s), EKG, radiologic studies, jr8 plain films. Data interpreted: Pulse oximetry: on room air is 96 %. Interpretation: acceptable. Counseling: I had a detailed discussion with the patient and/or guardian regarding: the historical points, exam findings, and any diagnostic results supporting the discharge/admit diagnosis, lab results, radiology results, the need for further work-up and treatment in the hospital. 11/12 19:23 Order name: Basic Metabolic Panel [facility] 11/12 19:23 Order name: CBC with Diff [facility] 11/12 19:23 Order name: LFT's [facility] 11/12 19:23 Order name: Magnesium [facility] 11/12 19:23 Order name: NT PRO-BNP [facility] 11/12 19:23 Order name: PT-INR [facility] 11/12 19:23 Order name: Troponin (emerg Dept Use Only) [facility] 11/12 19:23 Order name: Blood Culture Adult (2) [facility] 11/12 19:23 Order name: Procalcitonin [facility] 11/12 19:23 Order name: Lactate [facility] 11/12 20:23 Order name: CBC with Automated Diff; Complete Time: 21:15 [facility]MS 11/12 20:25 Order name: Basic Metabolic Panel; Complete Time: 20:30 [facility]MS 11/12 20:25 Order name: Liver (Hepatic) Function; Complete Time: 20:30 EDMS 11/12 20:25 Order name: Troponin (Emerg Dept Use Only); Complete Time: 20:30 EDMS 11/12 20:25 Order name: NT PRO-BNP; Complete Time: 20:30 EDMS 11/12 20:25 Order name: Magnesium; Complete Time: 20:30 EDMS 11/12 20:27 Order name: Protime (+INR); Complete Time: 20:30 EDMS 11/12 20:29 Order name: Lactate; Complete Time: 20:30 EDMS 11/12 20:45 Order name: Procalcitonin; Complete Time: 20:45 EDMS 11/12 21:12 Order name: Manual Differential; Complete Time: 21:15 EDMS 11/12 21:55 Order name: CKMB Creatine Kinase MB [facility]MS 11/12 21:55 Order name: CBC with Automated Diff [facility] 11/12 21:55 Order name: CBC with Automated Diff [facility] 11/12 21:55 Order name: Comprehensive Metabolic Panel [facility] 11/12 21:55 Order name: Comprehensive Metabolic Panel [facility] 11/12 21:55 Order name: Magnesium [facility] 11/12 21:56 Order name: Magnesium [facility] 11/12 21:56 Order name: Phosphorus [facility] 11/12 21:56 Order name: Phosphorus [facility] 11/12 21:56 Order name: NT PRO-BNP [facility] 11/12 19:23 Order name: XRAY Chest (1 view) [facility] 11/12 19:23 Order name: EKG; Complete Time: 19:25 [facility] 11/12 19:23 Order name: Cardiac monitoring; Complete Time: 20:39 [facility] 11/12 19:23 Order name: EKG - Nurse/Tech; Complete Time: 20:39 [facility] 11/12 19:23 Order name: IV Saline Lock; Complete Time: 20:39 [facility] 11/12 19:23 Order name: Labs collected and sent; Complete Time: 20:39 [facility] 11/12 19:23 Order name: O2 Per Protocol; Complete Time: 20:39 [facility] 11/12 19:23 Order name: O2 Sat Monitoring; Complete Time: 20:39 jr8 11/12 20:30 Order name: BIPAP [facility] 11/12 20:35 Order name: RAD; Complete Time: 20:44 [facility] 11/12 21:55 Order name: CONS Physician Consult [facility] 11/12 21:55 Order name: Heart Healthy [facility] 11/12 21:55 Order name: Echo with Doppler [facility] 11/12 21:55 Order name: Echo with Doppler [facility] 11/12 21:56 Order name: NT PRO-BNP [facility] 11/12 21:56 Order name: Protime (+INR) [facility] 11/12 21:56 Order name: Protime (+INR) [facility] 11/12 21:56 Order name: PTT, Activated Partial Thromb [facility] 11/12 21:56 Order name: PTT, Activated Partial Thromb [facility] 11/12 21:56 Order name: Troponin I [facility] 11/12 21:56 Order name: Troponin I [facility] 11/12 21:56 Order name: Troponin I [facility] Administered Medications: 19:36 Drug: Lasix 80 mg Route: IVP; Site: Other; ao 23:05 Follow up: Response: No adverse reaction jb4 19:36 Drug: Albuterol 2.5 mg Route: Inhalation; ao 19:36 Drug: SOLU-Medrol 125 mg Route: IVP; Site: Other; ao 21:00 Follow up: Response: No adverse reaction; Wheezing diminished jb4 23:11 Follow up: Response: No adverse reaction jb4 20:03 Drug: Albuterol 2.5 mg Route: Inhalation; jb4 20:03 Drug: Ativan 0.5 mg Route: IVP; Site: left jugular; jb4 20:30 Follow up: Response: No adverse reaction; Anxiety decreased jb4 20:29 Drug: Albuterol 2.5 mg Route: Inhalation; jb4 21:27 Drug: Lovenox 1 mg/kg Route: Sub-Q; Site: right lower abdomen; jb4 23:10 Follow up: Response: No adverse reaction jb4 Disposition: 11/12/19 20:55 Hospitalization ordered by Amy Nowak for Inpatient Admission. Preliminary diagnosis are Acute combined systolic (congestive) and diastolic (congestive) heart failure, Chronic obstructive pulmonary disease with (acute) exacerbation, Acute respiratory failure. - Bed requested for Intensive Care Unit. - Status is Inpatient Admission. jb4 - Condition is Fair. - Problem is new. - Symptoms have improved. UTI on Admission? No Addendum: 11/14/2019 06:19 Co-signature as Attending Physician, Harry Day MD I agree with the assessment and t w4 plan of care. Signatures: Dispatcher [employer] EDMS Ricardo Wilkins PA PA jr8 Sofía Valverde, RN RN cg Renzo Scales RN RN Beto Al RN RN jb4 Harry Day MD MD tw4 Corrections: (The following items were deleted from the chart) 11/12 20:57 20:55 Hospitalization Ordered by Amy Nowak MD for Inpatient Admission. Preliminary jr8 diagnosis is Acute combined systolic (congestive) and diastolic (congestive) heart failure; Chronic obstructive pulmonary disease with (acute) exacerbation. Bed requested for Intensive Care Unit. Status is Inpatient Admission. Condition is Fair. Problem is new. Symptoms have improved. UTI on Admission? No. jr8 22:22 20:57 11/12/2019 20:55 Hospitalization Ordered by Amy Nowak MD for Inpatient cg Admission. Preliminary diagnosis is Acute combined systolic (congestive) and diastolic (congestive) heart failure; Chronic obstructive pulmonary disease with (acute) exacerbation; Acute respiratory failure. Bed requested for Intensive Care Unit. Status is Inpatient Admission. Condition is Fair. Problem is new. Symptoms have improved. UTI on Admission? No. jr8 23:45 22:22 11/12/2019 20:55 Hospitalization Ordered by Amy Nowak MD for Inpatient jb4 Admission. Preliminary diagnosis is Acute combined systolic (congestive) and diastolic (congestive) heart failure; Chronic obstructive pulmonary disease with (acute) exacerbation; Acute respiratory failure. Bed requested for Intensive Care Unit. Status is Inpatient Admission. Condition is Fair. Problem is new. Symptoms have improved. UTI on Admission? No. cg
[2019-11-12 21:12] LABS: Blood Morphology Comment NOT SEEN (NOT SEEN); Platelet Estimate ADEQ
[2019-11-12] MEDS ORDERED: ENOXAPARIN 100 MG/ML SYR SQ ONE (21:28)
[2019-11-12] MEDS ORDERED: ACETAMINOPHEN 500 MG TAB PO PRN (21:50)
[2019-11-12] MEDS ORDERED: POTASSIUM CL SA 10 MEQ TAB PO ONE (23:27)
[2019-11-13] MEDS: FUROSEMIDE 40 MG/4 ML VIAL IV SCH ×4 (00:05→21:33)
[2019-11-13 00:33] VITALS: BMI 33.3
[2019-11-13 05:37] LABS: Basophils % 0.2 % (0-1.3); Hematocrit 35.6 % (39.6-49.0); MPV 11.5 fL (7.6-11.3); RBC Red Blood Cell Count 3.85 M/uL (4.33-5.43)
[2019-11-13 05:42] LABS: Protime INR 1.38
[2019-11-13 05:50] LABS: Albumin 2.2 g/dL (3.4-5.0); Bilirubin Total 1.2 mg/dL (0.2-1.0); Magnesium 1.8 mg/dL (1.8-2.4); Phosphorus 3.8 mg/dL (2.5-4.9); Potassium 3.3 mmol/L (3.5-5.1); Protein, Total 6.9 g/dL (6.4-8.2)
[2019-11-13] MEDS ORDERED: POTASSIUM 25 MEQ EFFERV TAB PO ONE (05:53)
[2019-11-13] MEDS ORDERED: MAGNESIUM SULFATE 1 gm IVPB 1 GM/100 ML BAG IV ONE (05:53)
--- NOTE | 2019-11-13 07:11 | P.HP ---
Certification for Inpatient Patient admitted to: Inpatient With expected LOS: >2 Midnights Patient will require the following post-hospital care: None Practitioner: I am a practitioner with admitting privileges, knowledge of patient current condition, hospital course, and medical plan of care. Services: Services provided to patient in accordance with Admission requirements found in Title 42 Section 412.3 of the Code of Federal Regulations Patient History Date of Service: 11/12/19 Reason for admission: Shortness of breath History of Present Illness: Patient is a 54-year-old gentleman who came to the hospital with difficulty breathing. Patient had shortness of breath and patient was also orthopnea. Patient is a history of CHF with an ejection fraction of 30-35%. He was diagnose with nonischemic cardiomyopathy which was felt to be related to his alcohol use. He had a cardiac catheterization of the last couple months which was completely unremarkable except for the low ejection fraction. Patient has not been really compliant with taking his medications. He has bilateral lower extremity hyperkeratosis of his legs. He has significant edema as well. In the emergency room chest x-ray revealed a large right sided pleural effusion. Will try to get a thoracentesis for this as well. Patient was placed on BiPAP because of his hypoxemia. He will be admitted to the hospital for further evaluation. Will get Cardiology consultation. He may also need pulmonary consultation. With his poor compliance his long-term prognosis remains poor. Allergies No Known Allergies Allergy (Unverified 05/04/19 02:56) Home Medications: Buspirone HCl [Buspar] 10 mg PO BID 05/04/19 Furosemide 40 mg PO BID 05/04/19 Albuterol Sulfate [Proair Hfa] 8.5 gm IH Q6HR PRN #1 [email or web address] 09/14/19 Aspirin [Bhavana Chewable] 81 mg PO DAILY 11/13/19 Digoxin 1 tab PO DAILY 11/13/19 Multivit-Min/Folic/Vit K/Lycop [Men's Multivitamin Tablet] 1 tab PO DAILY - Past Medical/Surgical History Has patient received pneumonia vaccine in the past: Yes Diabetic: No -: cardiomegaly -: CHF -: COPD -: Bilateral leg lymphedema -: cellulitis -: hepatitis -: Cardiac catheterization - Family History Mother Medical History: Cancer, Other (see notes) Notes: epilepsy Father Medical History: Lung disease, Other (see notes) Notes: alcoholic - Social History Smoking Status: Current every day smoker Alcohol use: No CD- Drugs: Yes Caffeine use: No Place of Residence: Home Review of Systems 10-point ROS is otherwise unremarkable Physical Examination - Vital Signs Temperature: 98.6 F Blood Pressure: 134/82 Pulse: 108 Respirations: 17 Pulse Ox (%): 99 - Physical Exam General: Alert, In no apparent distress, Oriented x3 HEENT: Atraumatic, PERRLA, Mucous membr. moist/pink, EOMI, Sclerae nonicteric Neck: Supple, 2+ carotid pulse no bruit, No LAD, Without JVD or thyroid abnormality Respiratory: Diminished, Crackles/rales (Right side greater than left) Cardiovascular: Regular rate/rhythm, Normal S1 S2, Systolic murmur Gastrointestinal: Normal bowel sounds, Soft and benign, Non-distended, No tenderness Musculoskeletal: No clubbing, No tenderness, Swelling Integumentary: No rashes Neurological: Normal gait, Normal speech, Normal strength at 5/5 x4 extr, Normal tone, Sensation intact, Cranial nerves 3-12 intact, Normal affect Lymphatics: No axilla or inguinal lymphadenopathy - Studies Laboratory Data (last 24 hrs) 11/12/19 19:50: PT 15.8 H, INR 1.35 11/12/19 19:50: WBC 8.2, Hgb 12.2 L, Hct 37.2 L, Plt Count 109 L 11/12/19 19:50: Sodium 142, Potassium 3.8, BUN 14, Creatinine 0.96, Glucose 121 H, Magnesium 1.9, Total Bilirubin 1.3 H, AST 103 H, ALT 77, Alkaline Phosphatase 117 Assessment & Plan - Problems (Diagnosis) (1) Acute on chronic systolic heart failure Current Visit: No Status: Acute (2) Acute respiratory failure Current Visit: No Status: Acute Qualifiers: Respiratory failure complication: hypoxia Qualified Code(s): J96.01 - Acute respiratory failure with hypoxia (3) Elevated troponin Current Visit: No Status: Acute (4) Chronic acquired lymphedema Current Visit: No Status: Chronic (5) DM2 (diabetes mellitus, type 2) Current Visit: No Status: Chronic Qualifiers: (6) H/O: hypertension Current Visit: No Status: Chronic - Plan 1. Echocardiogram reviewed. EF of 30-35% 2. Patient will need thoracentesis for a large right pleural effusion 3. Discuss with Cardiology if patient needs a repeat echocardiogram 4. Cardiology consultation 5. Aggressive diuresis 6. Strict I's and O's 7. Repeat CXR 8. Daily weights 9. Education regarding diet and treatment of congestive heart failure 10. Monitor LFTs 11. GI and DVT prophylaxis Discharge Plan: Home Plan to discharge in: Greater than 2 days - Advance Directives Does patient have a Living Will: No Does patient have a Durable POA for Healthcare: Yes - Code Status/Comfort Care Code Status Assessed: Yes Code Status: Full Code Critical Care: No Time Spent Managing PTS Care (In Minutes): 45
--- NOTE | 2019-11-13 07:52 | EKG ---
Test Date: 2019-11-12 Test Time: 19:17:24 [employer] Operator: ANTONIO MEASUREMENT RESULTS: Intervals: Rate: 120 AR: QRSD: 176 QT: 450 QTc: 636 [place]: P: AR: QRS: -73 T: 76 INTERPRETIVE STATEMENTS: Sinus tachycardia Left axis deviation Right bundle branch block Inferior infarct, age undetermined Abnormal ECG Compared to ECG 09/10/2019 17:51:44 no significant change from previous ECG Electronically Signed On 11-13-19 07:51:21 TRIM ATTACHER by Javan Barrientos
[2019-11-13] MEDS: FORMOTEROL FUMARATE 20 MCG/2 ML VIAL.NEB IH SCH ×2 (08:55→20:45)
[2019-11-13] MEDS: IPRATROPIUM BROM 0.5MG/2.5ML NEB SCH ×3 (08:55→20:45)
[2019-11-13] MEDS: POTASSIUM 25 MEQ EFFERV TAB PO SCH ×3 (09:00→20:44)
[2019-11-13] MEDS ORDERED: CLOPIDOGREL 75 MG TABLET PO SCH (09:00)
[2019-11-13] MEDS: ENOXAPARIN 40 MG/0.4 ML SQ SCH (09:01)
[2019-11-13] MEDS: METHYLPREDNISOLONE 40 MG INJ IV SCH ×2 (09:01→18:20)
[2019-11-13] MEDS: SPIRONOLACTONE 25 MG TABLET PO SCH ×2 (09:01→20:32)
[2019-11-13] MEDS: ASPIRIN EC 81 MG TAB PO SCH (09:02)
[2019-11-13] MEDS: ALPRAZOLAM 0.25 MG TABLET PO PRN (09:11)
[2019-11-13 09:26] LABS: Blood Gas Oxyhemoglobin 91.5 % (94-97); Blood O2 Saturation 93.8 % (92-98.5)
[2019-11-13] MEDS: ONDANSETRON 4 MG/2 ML VIAL IV PRN ×3 (09:34→21:33)
[2019-11-13 10:04] LABS: Barbiturates NEGATIVE (NEGATIVE); Benzodiazepines NEGATIVE (NEGATIVE); Cocaine NEGATIVE (NEGATIVE); METHAMPHETAM POSITIVE (NEGATIVE); Methadone NEGATIVE (NEGATIVE); Opiates NEGATIVE (NEGATIVE); Phencyclidine NEGATIVE (NEGATIVE); THC Cannibis NEGATIVE (NEGATIVE)
--- NOTE | 2019-11-13 10:27 | ECHO ---
HEIGHT: 5 ft 10 in WEIGHT: 232 lb 1.6 oz DATE OF STUDY: 11/13/[address]: Amy Nowak MD 2-DIMENSIONAL: YES M.MODE: YES DOPPLER: YES COLOR FLOW: YES TDS: PORTABLE: DEFINITY: BUBBLE STUDY: DIAGNOSIS: CONGESTIVE HEART FAILURE CARDIAC HISTORY: CATHERIZATION: SURGERY: PROSTHETIC VALVE: PACEMAKER: MEASUREMENTS (cm) DIASTOLIC (NORMALS) SYSTOLIC (NORMALS) IVSd 1.2 (0.6-1.2) LA Diam 5.2 (1.9-4.0) LVEF 20-25% LVIDd 8.5 (3.5-5.7) LVIDs 7.3 (2.0-3.5) %FS 14% LVPWd 1.2 (0.6-1.2) Ao Diam 3.4 (2.0-3.7) 2 DIMENSIONAL ASSESSMENT: RIGHT ATRIUM: DILATED LEFT ATRIUM: DILATED RIGHT VENTRICLE: DILATED LEFT VENTRICLE: DILATED TRICUSPID VALVE: NORMAL MITRAL VALVE: NORMAL PULMONIC VALVE: NORMAL AORTIC VALVE: NORMAL PERICARDIAL EFFUSION: NONE AORTIC ROOT: NORMAL LEFT VENTRICULAR WALL MOTION: SEVERE GLOBAL HYPOKINESIS DOPPLER/COLOR FLOW: MILD TO MODERATE MITRAL AND TRICUSPID REGURGITATION. ESTIMATED RIGHT VENTRICULAR SYSTOLIC PRESSURE 45 mmHg (MILD PULMONARY HYPERTENSION). COMMENTS: FOUR CHAMBER DILATION. SEVERELY DEPRESSED LEFT VENTRICULAR EJECTION FRACTION. MILD TO MODERATE MITRAL AND TRICUSPID REGURGITATION. MILD PULMONARY HYPERTENSION. TECHNOLOGIST: ADELINA JAMES
--- NOTE | 2019-11-13 13:50 | CON ---
History Of Present Illness: Mr. Dhaliwal is 54. He came to the hospital because of shortness of breat h, gaining weight. His abdomen is swelling. Just a short time ago, the patient developed similar sy mptoms. He had a paracentesis, 8 L of fluid removed. He now has evidence of pulmonary edema and a l arge right pleural effusion and what looks to me on physical exam like massive ascites again. 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 His ejection fraction is much less than 20%. It was whe n we met him a few weeks ago as well. We did a cardiac cath at that point. He has completely normal coronary arteries, but a very damaged myocardium because of alcohol. His home medications have been BuSpar, furosemide 40 b.i.d., albuterol, aspirin, digoxin, and a multivitamin. The patient states amanda levin has been using no alcohol since his hospital discharge and that he has been taking his medicines. Physical Examination: Constitutional: 5 feet 10 inches, 232 pounds. General: He appears to be in respiratory distress, sitting up to breathe. Abdomen: Very protuberant, ballotable organs, shifting dullness. Extremities: Show 4+ edema. Pulses are not palpable and the skin has chronic changes of venous insu fficiency. Imaging: The chest x-ray reveals moderate to large size right pleural effusion. Pulmonary vascular redistribution. Assessment/plan: Our treatment should be diuretics and breathing treatments. He may benefit from an other thoracentesis. He may have to get on a schedule of doing a thoracentesis weekly to have any ho pe of staying out of the hospital. He has abnormal troponins, abnormal N-terminal proBNP. These are expected knowing what his underlying cardiac condition is. It is not an indication to do another ca rdiac cath. We will see what diuresis helps with. We will see if GI agrees another paracentesis, maybe in order. FERNANDO/DAVID Voice ID: [id number] Report ID: [id number]
--- NOTE | 2019-11-13 15:44 | P.PN ---
Subjective Date of Service: 11/13/19 Primary Care Provider: none Chief Complaint: Shortness of breath Subjective: Other (Shortness of breath still noted.) Physical Examination - Vital Signs Temperature: 97.5 F Blood Pressure: 134/77 Pulse: 119 Respirations: 27 Pulse Ox (%): 98 - Physical Exam General: Alert, Cooperative, Mild distress HEENT: Atraumatic Neck: Supple Respiratory: Diminished (Decreased bilateral) Cardiovascular: Abnormal pulses (Sinus tachycardia) Gastrointestinal: Normal bowel sounds, Ascites Musculoskeletal: No tenderness, No warmth Integumentary: Tenderness/swelling (Edema to the lower extremities) Neurological: Normal speech, Normal strength at 5/5 x4 extr, Normal tone, Normal affect - Studies Laboratory Data (last 24 hrs) 11/12/19 19:50: PT 15.8 H, INR 1.35 11/12/19 19:50: WBC 8.2, Hgb 12.2 L, Hct 37.2 L, Plt Count 109 L 11/12/19 19:50: Sodium 142, Potassium 3.8, BUN 14, Creatinine 0.96, Glucose 121 H, Magnesium 1.9, Total Bilirubin 1.3 H, AST 103 H, ALT 77, Alkaline Phosphatase 117 Microbiology Data (last 24 hrs): 11/12/19 19:35 Blood - Blood Gram Stain - Final 11/12/19 19:35 Blood - Blood Gram Stain - Final Medications List Reviewed: Yes Assessment & Plan Discharge Plan: Other (snf facility) Plan to discharge in: Greater than 2 days Physician Review Additional Text: Impression: Acute on chronic respiratory failure with hypoxia secondary to acute on chronic systolic CHF with ejection fraction around 20% with cardiomyopathy complicated with bilateral pleural effusion Elevated troponin likely related to above Ascites with history of alcoholic liver cirrhosis Diabetes mellitus type 2 ngv-xlenfea-lfqyxxhrd COPD Depression with anxiety Methamphetamine abuse Plan: Acute on chronic respiratory failure with hypoxia secondary to acute on chronic systolic CHF with ejection fraction around 20% with cardiomyopathy complicated with bilateral pleural effusion: Continue with aggressive diuresis. Continue with 1500 cc per day fluid restriction. Echocardiogram reviewed. Continue with Cardiology recommendations. Will recheck CXR tomorrow. Spoke to Pulmonary. No thorancentesis recommended at this time. Continue maintain sats above 93%. Will continue to reassess.. Elevated troponin likely related to above: No need for intervention at this time. Will monitor closely. Ascites with history of alcoholic cirrhosis: Patient may require paracentesis. No GI available at this time. Will monitor this closely. Will reassess. May require paracentesis within the next 24-48 hr. COPD: Will continue with medication. Diabetes mellitus type 2 pbl-zaxecxb-kyldjebdu: Continue sliding scale. Will monitor closely. Depression with anxiety: Continue home medication Methamphetamine abuse: Patient was positive for methamphetamines. Patient admitted to use recently. Cessation education provided. Time Spent Managing Pts Care (In Minutes): 55
[2019-11-13] MEDS: BUSPIRONE HCL 5 MG TABLET PO SCH (20:32)
[2019-11-13] MEDS ORDERED: KCL 20 MEQ/100 mL IVPB 20 MEQ/100 ML BAG IV SCH (21:00)
[2019-11-13] MEDS ORDERED: HOME MED 1 EA UNK (Buspirone Hcl [Buspar] 10 MG) PO SCH (21:00)
--- NOTE | 2019-11-13 21:52 | P.CNS ---
Date of Consult: 11/13/19 Primary Care Provider: none Chief Complaint: Shortness of breath History of Present Illness: Patient is 54 years of age admitted to the hospital complaining of significant lower extremity edema, shortness of breath and abdominal distention. He has a history of severe congestive heart failure nonischemic alcohol and drug abuse found to have a pleural effusion as a reason for consult. Patient complaining of significant distress Allergies No Known Allergies Allergy (Unverified 05/04/19 02:56) Home Medications: Buspirone HCl [Buspar] 10 mg PO BID 05/04/19 Furosemide 40 mg PO BID 05/04/19 Albuterol Sulfate [Proair Hfa] 8.5 gm IH Q6HR PRN #1 hfa.aer.ad 09/14/19 Aspirin [Bhavana Chewable] 81 mg PO DAILY 11/13/19 Digoxin 1 tab PO DAILY 11/13/19 Multivit-Min/Folic/Vit K/Lycop [Men's Multivitamin Tablet] 1 tab PO DAILY - Past Medical/Surgical History Diabetic: No -: cardiomegaly -: CHF -: COPD -: Bilateral leg lymphedema -: cellulitis -: hepatitis -: Cardiac catheterization - Family History Mother Medical History: Cancer, Other (see notes) Notes: epilepsy Father Medical History: Lung disease, Other (see notes) Notes: alcoholic - Social History Smoking Status: Current every day smoker Alcohol use: No CD- Drugs: Yes Caffeine use: No Place of Residence: Home Review of Systems General: Weakness Respiratory: Shortness of Breath Cardiovascular: Edema (Significant lower extremity edema) Physical Examination Temp Pulse Resp BP Pulse Ox 97.5 F 115 H 17 133/86 91 11/13/19 15:49 11/13/19 21:33 11/13/19 18:00 11/13/19 21:33 11/13/19 18:00 General: Alert, Moderate distress Neck: Supple Respiratory: Diminished, Expiratory wheezes (Diminished air entry expiratory wheezing) Cardiovascular: Normal S1 S2, Edema (Chronic eczematous changes to his significant lower extremity edema) Gastrointestinal: Normal bowel sounds, Soft and benign - Problems (1) CHF (congestive heart failure) Current Visit: No Status: Acute Plan: Patient is 54 years of age and multiple medical problems history of drug or alcohol abuse cirrhosis of the liver patient's BNP is significantly elevated he is a chronic right-sided pleural effusion with cirrhosis of the liver withhold thoracentesis and may need paracentesis no clinical evidence of sepsis hypoxic hypercapnic white count is normal patient is an active smoker continue with bronchodilators and diuretics change to p.o. prednisone I have added spironolactone patient is on Lasix at home signs are stable Qualifiers: Heart failure type: systolic Heart failure chronicity: acute on chronic Qualified Code(s): I50.23 - Acute on chronic systolic (congestive) heart failure
[2019-11-14] MEDS: METHYLPREDNISOLONE 40 MG INJ IV SCH ×2 (01:04→10:33)
[2019-11-14] MEDS: VITAMIN K (ADULT) 10 MG/ML SQ SCH (01:04)
[2019-11-14] MEDS: IPRATROPIUM BROM 0.5MG/2.5ML NEB SCH ×3 (01:55→13:24)
[2019-11-14] MEDS: SILVER SULFADIAZINE 1% 25 GM TOP SCH ×2 (03:27→09:00)
[2019-11-14] MEDS: ALPRAZOLAM 0.25 MG TABLET PO PRN ×3 (04:19→21:13)
[2019-11-14] MEDS: FUROSEMIDE 40 MG/4 ML VIAL IV SCH ×2 (05:55→14:00)
[2019-11-14 06:11] LABS: Albumin 2.5 g/dL (3.4-5.0); Magnesium 2.3 mg/dL (1.8-2.4); Phosphorus 4.5 mg/dL (2.5-4.9); Potassium 4.6 mmol/L (3.5-5.1); Protein, Total 7.6 g/dL (6.4-8.2)
[2019-11-14] MEDS: FORMOTEROL FUMARATE 20 MCG/2 ML VIAL.NEB IH SCH ×2 (07:30→19:30)
[2019-11-14] MEDS: ASPIRIN EC 81 MG TAB PO SCH (07:40)
[2019-11-14] MEDS: BUSPIRONE HCL 5 MG TABLET PO SCH ×2 (08:37→20:30)
--- NOTE | 2019-11-14 08:42 | P.PN ---
Subjective Date of Service: 11/14/19 Primary Care Provider: none Chief Complaint: Shortness of breath Subjective: Other (Patient stable this time. Patient to have paracentesis today.) Physical Examination - Vital Signs Temperature: 98.9 F Blood Pressure: 117/85 Pulse: 112 Respirations: 10 Pulse Ox (%): 98 - Physical Exam General: Alert, Cooperative HEENT: Atraumatic Neck: Supple Respiratory: Crackles/rales (To the bases), Expiratory wheezes (Bilateral), Other (Better air movement bilateral) Cardiovascular: Abnormal pulses (Sinus tachycardia rate around 110) Gastrointestinal: Normal bowel sounds, Soft and benign, Non-distended, No tenderness, No masses, No rebound, No guarding, Ascites Musculoskeletal: No tenderness, No warmth Integumentary: Tenderness/swelling (Edema to the lower extremities improved. Lymphedema noted.) Neurological: Normal speech, Normal strength at 5/5 x4 extr, Normal tone - Studies Microbiology Data (last 24 hrs): 11/12/19 19:35 Blood - Blood Gram Stain - Final 11/12/19 19:35 Blood - Blood Gram Stain - Final Medications List Reviewed: Yes Assessment & Plan Discharge Plan: Other ([facility] facility) Plan to discharge in: Greater than 2 days Physician Review Additional Text: Impression: Acute on chronic respiratory failure with hypoxia secondary to acute on chronic systolic CHF with ejection fraction around 20% with cardiomyopathy complicated with bilateral pleural effusion Elevated troponin likely related to above Ascites with history of alcoholic liver cirrhosis Diabetes mellitus type 2 uvm-gfljjfu-kamaugbqj COPD Depression with anxiety Methamphetamine abuse Plan: Acute on chronic respiratory failure with hypoxia secondary to acute on chronic systolic CHF with ejection fraction around 20% with cardiomyopathy complicated with bilateral pleural effusion: Continue with diuresis. Patient will have paracentesis today. Will send lab for paracentesis. Patient will require albumin after paracentesis. Recheck chest x-ray today. Continue to wean off oxygen. Case discussed with cardiology. No intervention required at this time. Will discuss case with pulmonology. 2 out of 4 blood cultures positive, likely contaminant. Procalcitonin negative. If stable later today a will transfer patient to the floor. Patient will require physical therapy and occupational therapy. Will need to consider skilled placement. Will discuss with psych social worker. Elevated troponin likely related to above: Spoke with Cardiology today. No need for intervention at this time. Will monitor closely. Ascites with history of alcoholic cirrhosis: Patient will have paracentesis today. Will send lab for analysis. Patient will require albumin after paracentesis. Will continue to monitor closely. COPD: Will continue with COPD medication. Will discuss further with pulmonology. Diabetes mellitus type 2 eco-sjihfac-qzcdzwkrf: Continue sliding scale. Will monitor closely. Depression with anxiety: Continue home medication. Will continue to provide medication for anxiety. Methamphetamine abuse: Patient was positive for methamphetamines. Patient admitted to use recently. Cessation education provided. Time Spent Managing Pts Care (In Minutes): 55
[2019-11-14] MEDS: ENOXAPARIN 40 MG/0.4 ML SQ SCH (09:00)
[2019-11-14] MEDS ORDERED: FOLIC PO SCH (09:00)
[2019-11-14] MEDS ORDERED: METOPROLOL TAR 50 MG TAB PO SCH (09:00)
[2019-11-14] MEDS ORDERED: VIT K PO SCH (09:00)
[2019-11-14] MEDS ORDERED: MULTIVIT MIN PO SCH (09:00)
[2019-11-14] MEDS: MULTIVIT W/ MINERAL TAB PO SCH (09:00)
[2019-11-14] MEDS ORDERED: LYCOP PO SCH (09:00)
[2019-11-14] MEDS ORDERED: CHLORHEXIDINE GLUCO 4% 120 ML TOP SCH (09:00)
[2019-11-14] MEDS: POTASSIUM CL SA 10 MEQ TAB PO SCH ×2 (10:31→20:29)
[2019-11-14] MEDS: SPIRONOLACTONE 25 MG TABLET PO SCH ×2 (10:32→21:00)
[2019-11-14] MEDS: DIGOXIN 0.25 MG TABLET PO SCH (10:32)
[2019-11-14] MEDS ORDERED: ALBUMIN HUMAN 25% IV ONE (11:00)
--- NOTE | 2019-11-14 11:55 | RAD REPORT ---
EXAM DESCRIPTION: US - Paracentesis Proc Guidance - 11/14/2019 10:15 am CLINICAL HISTORY: Liver disease with ascites FINDINGS: The risks, benefits and alternatives to the procedure were explained to the patient and in formed consent obtained. The skin and subcutaneous tissues were anesthetized with Lidocaine. Under sonographic guidance an 8 F rench catheter was placed into the right lower quadrant. 4 liters of yellow fluid removed and sent to the lab The patient experienced no immediate complication. IMPRESSION: Paracentesis
[2019-11-14 12:50] LABS: Appearance CLEAR (CLEAR); Body Fluid Source PERITONEAL; Body Fluid WBC 129 /mm^3; Color of fluid Yellow (COLORLESS)
--- NOTE | 2019-11-14 13:41 | PN ---
Admitted to Dr. Sandhu, and seen by Dr. Barrientos on 11/12/2019 and 11/13/2019. Madhuri is 54, came in with wlhii-kg-uhndnys exacerbation of systolic congestive heart failure. He re simón on BiPAP. Has significant ascites and pleural effusion. Apparently, the thoracentesis had bee n canceled for now in fear of hemodynamic compromise. Paracentesis is planned today by Radiology. Grayson vivas present regimen. We will continue to follow. COSME/DVAID Voice ID: [id number] Report ID: [id number]
[2019-11-14] MEDS ORDERED: IPRATROPIUM BROM 0.5MG/2.5ML NEB PRN (17:53)
[2019-11-14] MEDS: predniSONE 20 MG TAB PO SCH (20:29)
[2019-11-14] MEDS: METOPROLOL TAR 25 MG TAB PO SCH (20:30)
[2019-11-15] MEDS: VITAMIN K (ADULT) 10 MG/ML SQ SCH (00:58)
[2019-11-15] MEDS: ALPRAZOLAM 0.25 MG TABLET PO PRN (04:36)
[2019-11-15] MEDS: Levofloxacin500mg IV 500 MG/100 ML BAG IV SCH (08:23)
[2019-11-15] MEDS: VANCOMYCIN 1.75 GM in NA CHLORIDE 0.9% 500 ML IVPB SCH (08:23)
[2019-11-15] MEDS: ENOXAPARIN 40 MG/0.4 ML SQ SCH (08:24)
[2019-11-15] MEDS: DIGOXIN 0.25 MG TABLET PO SCH (08:25)
[2019-11-15] MEDS: BUSPIRONE HCL 5 MG TABLET PO SCH ×2 (08:25→21:40)
[2019-11-15] MEDS: MULTIVIT W/ MINERAL TAB PO SCH (08:26)
[2019-11-15] MEDS: POTASSIUM CL SA 10 MEQ TAB PO SCH ×2 (08:27→21:42)
[2019-11-15] MEDS: METOPROLOL TAR 25 MG TAB PO SCH ×2 (08:27→21:41)
[2019-11-15] MEDS: predniSONE 20 MG TAB PO SCH ×2 (08:27→21:40)
[2019-11-15] MEDS: ASPIRIN EC 81 MG TAB PO SCH (08:30)
[2019-11-15] MEDS: SPIRONOLACTONE 25 MG TABLET PO SCH ×2 (08:31→21:44)
[2019-11-15] MEDS: FUROSEMIDE 40 MG TABLET PO SCH ×2 (08:31→16:04)
[2019-11-15] MEDS: SILVER SULFADIAZINE 1% 25 GM TOP SCH (08:33)
[2019-11-15] MEDS: NICOTINE 21 MG/PAT TD SCH (08:42)
--- NOTE | 2019-11-15 09:38 | P.PN ---
Subjective Date of Service: 11/15/19 Primary Care Provider: none Chief Complaint: Shortness of breath Subjective: Doing well Physical Examination - Vital Signs Temperature: 97.7 F Blood Pressure: 108/65 Pulse: 95 Respirations: 19 Pulse Ox (%): 95 - Physical Exam General: Alert, In no apparent distress, Oriented x3 HEENT: Atraumatic Neck: Supple Respiratory: Clear to auscultation bilaterally Cardiovascular: Normal pulses, Regular rate/rhythm Gastrointestinal: Normal bowel sounds, Ascites (Ascites improved) Musculoskeletal: No tenderness, No warmth Integumentary: Other (Bandages to the lower extremity noted) Neurological: Normal speech, Normal strength at 5/5 x4 extr, Normal tone, Normal affect - Studies Microbiology Data (last 24 hrs): 11/12/19 19:35 Blood - Blood Aerobic Blood Culture - Final Meth Resistant Staph Aureus 11/12/19 19:35 Blood - Blood Gram Stain - Final 11/12/19 19:35 Blood - Blood Anaerobic Blood Culture - Final Meth Resistant Staph Aureus 11/12/19 19:35 Blood - Blood Gram Stain - Final Medications List Reviewed: Yes Assessment & Plan Discharge Plan: LTAC Plan to discharge in: 24 Hours Physician Review Additional Text: Impression: Acute on chronic respiratory failure with hypoxia secondary to acute on chronic systolic CHF with ejection fraction around 20% with cardiomyopathy complicated with bilateral pleural effusion Elevated troponin likely related to above Bacteremia, blood culture positive for MRSA Chronic wounds to the lower extremities with history of lymphedema complicated with wound culture positive for Proteus, Aeromonas, Serratia Ascites with history of alcoholic liver cirrhosis Diabetes mellitus type 2 jrt-yepvgax-lsitvurni COPD Depression with anxiety Methamphetamine/tobacco abuse Plan: Acute on chronic respiratory failure with hypoxia secondary to acute on chronic systolic CHF with ejection fraction around 20% with cardiomyopathy complicated with bilateral pleural effusion: Continue with diuresis and fluid restriction. Patient had paracentesis done yesterday. Ascites improved. Patient breathing better. Echocardiogram reviewed. Ejection fraction around 20%. Cardiology plans for no further intervention at this time. Adjustment in medication performed. Blood culture positive along with wound culture positive. IV antibiotic therapy started. Patient now on vancomycin and Levaquin. Will order procalcitonin. Will continue with IV antibiotic therapy and wound care. In light of bacteremia/wound infection, will recommend long- term acute care facility placement. Will discuss with forensic social worker to help arrange. Patient will require PICC line as the patient will require long-term IV antibiotic therapy for at least 2 weeks. Will consult infectious disease for recommendation. Await approval for long-term acute care facility placement. Patient agrees with current plan of care. If the patient remains in the hospital, I will turn the service over to the hospitalist team tomorrow to continue care. Elevated troponin likely related to above: Spoke with Cardiology today. No need for intervention at this time. Will monitor closely. Echocardiogram reviewed. Bacteremia, blood culture positive for MRSA: Blood culture reviewed. Infectious disease consulted for further recommendation. Will start vancomycin. Patient will require at least 2 weeks of IV antibiotic therapy. Will pursue long-term acute care facility placement. Continue with above recommendations. Chronic wounds to the lower extremities with history of lymphedema complicated with wound culture positive for Proteus, Aeromonas, and Serratia: Wound culture reviewed. Will start IV Levaquin. Continue wound care treatment. Infectious disease consulted for further recommendation. Will pursue long-term acute care facility placement. Ascites with history of alcoholic cirrhosis: Patient had paracentesis done yesterday. Lab pending for analysis. Pathology shows no malignant cells. Overall improved, will continue to monitor closely. Continue with diuretic therapy. COPD: Will continue with COPD medication. Maintain sats above 93%. Will discuss further with pulmonology. Diabetes mellitus type 2 nzy-ocvehzj-dbqljcvuu: Continue sliding scale. Will monitor closely. Depression with anxiety: Continue home medication. Will continue to provide medication for anxiety. Methamphetamine/tobacco abuse: Patient was positive for methamphetamines. Patient admitted to use recently. Cessation education provided. Will provide nicotine patch. Will recheck urine drug screen. Time Spent Managing Pts Care (In Minutes): 55
[2019-11-15] MEDS: FORMOTEROL FUMARATE 20 MCG/2 ML VIAL.NEB IH SCH ×2 (12:17→20:30)
[2019-11-15] MEDS: MEDIHONEY 44 ML TOPICAL TUBE TOP SCH (14:40)
[2019-11-15] MEDS ORDERED: LORazepam 2 MG/ML VIAL IV ONE (18:00)
[2019-11-15] MEDS: ALPRAZOLAM 0.5 MG TABLET PO PRN (21:42)
[2019-11-16] MEDS: VITAMIN K (ADULT) 10 MG/ML SQ SCH (01:00)
[2019-11-16] MEDS ORDERED: LORazepam 2 MG/ML VIAL IV ONE (02:24)
[2019-11-16] MEDS: VANCOMYCIN 1.75 GM in NA CHLORIDE 0.9% 500 ML IVPB SCH (02:46)
[2019-11-16 06:50] LABS: Absolute Lymphocytes (CBC) 1.3 K/uL (0.7-4.9); Basophils % 0.3 % (0-1.3); Hematocrit 36.1 % (39.6-49.0); Lymphocytes % 14.4 % (15.3-44.8); RBC Red Blood Cell Count 3.92 M/uL (4.33-5.43)
[2019-11-16 07:05] LABS: Blood Morphology Comment NOT SEEN (NOT SEEN); Platelet Estimate DECR; Urine White Blood Cell Casts OK
[2019-11-16] MEDS: FORMOTEROL FUMARATE 20 MCG/2 ML VIAL.NEB IH SCH (08:25)
[2019-11-16] MEDS: Levofloxacin500mg IV 500 MG/100 ML BAG IV SCH (08:43)
[2019-11-16] MEDS: NICOTINE 21 MG/PAT TD SCH (08:43)
[2019-11-16] MEDS: ENOXAPARIN 40 MG/0.4 ML SQ SCH (08:43)
[2019-11-16 08:44] VITALS: O2SAT 97
[2019-11-16] MEDS: METOPROLOL TAR 25 MG TAB PO SCH (08:44)
[2019-11-16] MEDS: POTASSIUM CL SA 10 MEQ TAB PO SCH (08:44)
[2019-11-16] MEDS: MULTIVIT W/ MINERAL TAB PO SCH (08:44)
[2019-11-16] MEDS: predniSONE 20 MG TAB PO SCH (08:45)
[2019-11-16] MEDS: FUROSEMIDE 40 MG TABLET PO SCH (08:45)
[2019-11-16] MEDS: DIGOXIN 0.25 MG TABLET PO SCH (08:45)
[2019-11-16] MEDS: SPIRONOLACTONE 25 MG TABLET PO SCH (08:45)
[2019-11-16] MEDS: ASPIRIN EC 81 MG TAB PO SCH (08:45)
[2019-11-16] MEDS: BUSPIRONE HCL 5 MG TABLET PO SCH (08:45)
[2019-11-16] MEDS: MEDIHONEY 44 ML TOPICAL TUBE TOP SCH (08:46)
[2019-11-16] MEDS: SILVER SULFADIAZINE 1% 25 GM TOP SCH (08:47)
[2019-11-16] MEDS: ALPRAZOLAM 0.5 MG TABLET PO PRN (10:09)
[2019-11-16 11:07] LABS: Magnesium 2.2 mg/dL (1.8-2.4); Potassium 5.3 mmol/L (3.5-5.1)
[2019-11-16 13:21] VITALS: BP 109/56; TEMP 98.1
[2019-11-16] MEDS ORDERED: SOD POLYSTYREN SUL 15 GM/60 ML UCUP PO ONE (14:00)
--- NOTE | 2019-11-16 22:49 | PN ---
Date of Progress Note: 11/15/2019 Mr. Dhaliwal was admitted with an ejection fraction of 20%, alcoholic cardiomyopathy, bilateral pleural effusion, lymphedema, alcoholic cirrhosis with ascites, COPD, and diabetes. He underwent paracentes is of 4 L. Has improved from a symptom standpoint. He can go home on his home medication. Apparent ly, there is a plan to send him for LTAC and I agree with that. No change in his cardiac therapy at this point. COSME/DAVID Voice ID: [id number] Report ID: [id number]
--- NOTE | 2019-11-17 04:09 | DS ---
Date of Discharge: 11/16/2019 Discharge Diagnoses: 1.Acute on chronic respiratory failure with hypoxemia secondary to acute on chronic systolic congest david heart failure with ejection fraction of around 20% and cardiomyopathy with bilateral pleural effu amadeo. 2.Borderline elevated troponin. 3.Bacteremia secondary to methicillin-resistant Staphylococcus aureus. 4.Chronic wounds on lower extremities, history of lymphedema with wound culture positive for proteus and serratia. 5.Chronic ascites secondary to liver cirrhosis secondary to alcoholism. 6.Alcoholism. 7.History of chronic obstructive pulmonary disease. 8.Diabetes mellitus, non-insulin dependent. 9.Depression and anxiety. 10.Methamphetamine with tobacco abuse. Consults: 1.Cardiology, Dr. Quijano. 2.Pulmonary, Dr. Curry. Procedures: Paracentesis done by IR on November 14, 4 L were removed, cytology was negative. History Of Present Illness: Please refer to Dr. Nowak's admission note. Hospital Course: Initially, the patient presented with progressive shortness of breath or thopnea. The patient was not taking his home medication. X-ray in the emergency room showed large r ight-sided pleural effusion. The patient was placed on BiPAP and admitted. Pulmonary consult reques supriya. Dr. Curry did not feel strongly about his pleural effusion needed to have thoracentesis due to being chronic and he advised to proceed with paracentesis. Patient had paracentesis on the , 4 L were removed. He felt much better. After that, cardiology consult was requested. Dr. Barrientos pugh s seen the patient on the . He advised to continue diuresis. So, the patient was continued on L asix. We added Aldactone. Cardiology was not worried so much about the patient's abnormal troponin or BNP due to his chronic cardiomyopathy and he did not feel strongly to go to the cardiac cath. Dr. Barrientos thought patient may benefit from thoracentesis, but again Dr. Curry did not necessarily ag ree and he canceled the thoracentesis. The patient was continued on diuresis and fluid restriction. We added Aldactone given his ascites. He felt much better after his paracentesis. Fluid culture wa s positive for proteus, aeromonas, and serratia, and patient was started on IV Levaquin and switched to oral upon discharge. His blood culture was positive for MRSA and Dr. Cristobal was consulted. There is no consult note in the chart, but Dr. Cristobal will be the receiving physician at [facility]. He advised to proceed with 2 weeks of IV antibiotic with vancomycin. The patient will receive 1 g IV every day, dose will be adjusted at [place] depending on the vancomycin trough level. Due to the patient's history of tobacco abuse, he was advised to quit. He also was positive for meth amphetamine. He was also consulted about quitting drugs as well as alcohol. Today, he is saturating on 3 L. He will be discharged in fair condition to continue the IV antibiotic at [facility]. Discharge Condition: Fair. Discharged Diet: 1800 ADA. Discharge Activity: As tolerated. Physical Examination: Discharge Vital Signs: Blood pressure is 121/60, respiratory rate 20, pulse 86, temperature 97.9, sa turating 94%. He is on 3 L. General: At this point, he is alert, does not look in any distress. Oriented x3. HEENT: Atraumatic, normocephalic. PERRLA. Oral mucosa is moist. Neck: Supple. No JVD. No bruits. Chest: Clear to auscultation with decreased breath sounds in both bases. Heart: Regular rate and rhythm. S1, S2 normal. No gallop. Abdomen: Soft, nontender. No masses. Distended due to ascites with shifting dullness. Positive eder wel sounds. Extremities: No clubbing or cyanosis. Multiple dressings around the chronic wounds as well as lymph edema. Neurologic: Grossly intact. Cranial nerve exam 2 through 12 intact. Normal sensation. Normal refl exes. Normal muscle strength. Discharge Medications: Vancomycin 500 mg IV for 14 days, Levaquin 500 mg IV for 14 days, Aldactone 2 5 mg twice a day, digoxin 250 mcg one tablet once a day, Proscar 10 mg twice a day, aspirin 81 mg onc e a day, albuterol inhaler every 6 hours as needed, Lasix 40 mg twice a day. Medication will need to be adjusted at the [facility] as needed. ABELARDO/DAVID Voice ID: [id number] Report ID: [id number]
--- NOTE | 2019-11-18 12:32 | CON ---
History Of Present Illness: The patient is consulted for lower extremity stasis ulcer and bacteremia secondary to MRSA. Patient is currently being treated with vancomycin and local wound care treatmen t. Patient also has a stasis ulcer and significant history of liver disease. Patient denies any hea dache, nausea, vomiting, chest pain, abdominal pain, constipation, or diarrhea. Past Medical History: Significant for cardiomyopathy, congestive heart failure, COPD, bilateral lowe r extremity lymphedema, cellulitis, hepatitis, cardiac cath. Social History: Tobacco positive, alcohol positive. Family History: Noncontributory. Medications: Vancomycin. See MAR for other medications. Allergies: NO KNOWN DRUG ALLERGIES. Review of Systems: A 10-point review was performed. Physical Examination: General: This is a 54-year-old male with multiple medical problems, sitting in easy chair, not in an y acute cardiopulmonary distress. Vital Signs: Temperature 97.5, pulse 95, respirations 19, blood pressure 108/65. HEENT: Unremarkable. Neck: Supple. Lungs: Basal crackles. Heart: S1, S2. Regular. Abdomen: Soft, nontender. Bowel sounds present. Extremities: 4+ nonpitting edema. Multiple areas of open lesions and ulceration noted with severe d ry skin and hyperkeratotic lesions are also noted. Laboratory Data: Shows WBC 5.5, hemoglobin 12, platelets are 108. Chemistry shows sodium 139, potas sium 4.6, chloride 103, bicarb 34, BUN 25, creatinine 1.1, glucose is 161, albumin is 2.5. Micro rae a is growing MRSA in blood and Proteus mirabilis, Aeromonas hydrophilia, and Serratia marcescens in t he skin lesion on the left leg. The patient's initial chest x-ray done on 11/12 showed right-sided p leural effusion. Assessment And Plan: This is a 54-year-old male with multiple medical problems, coming in with lymph edema with cellulitis and stasis dermatitis and stasis ulcers to the lower extremities with right-leslye ed pleural effusion, cardiomyopathy, protein calorie malnourishment, morbid obesity. Continue vancom ycin and supportive care for a total of 2 weeks. Apply Medihoney with alginate to the wounds. Apply petroleum gel to the dried skin. Keep the wraps and legs elevated as much as possible. We will fol low the patient closely. Thank you for consult. Thank you Dr. Sandhu for consult. NF/MODL Voice ID: [id number] Report ID: [id number]
== END 2019-11-16 14:45 | DRG 189 ==
LOC: ER 19:13 → ERHOLD 21:51 → 3RD-ICU 23:11 → 2ND 11-14 11:35
PROVIDERS: ADMIT Hospitalist; ATTEND Internal Medicine
PROC: 5A09457 Assistance with Respiratory Ventilation, 24-96 Consecutive Hours, Continuous Positive Airway Pressure (ICD-10-PCS; 2019-11-12)
PROC: 0W9G3ZZ Drainage of Peritoneal Cavity, Percutaneous Approach (ICD-10-PCS; principal; 2019-11-14)
DX: J96.21 Acute and chronic respiratory failure with hypoxia (principal); I50.23 Acute on chronic systolic (congestive) heart failure; J44.1 Chronic obstructive pulmonary disease with (acute) exacerbation; I42.6 Alcoholic cardiomyopathy; J90 Pleural effusion, not elsewhere classified; R78.81 Bacteremia; I11.0 Hypertensive heart disease with heart failure; K70.30 Alcoholic cirrhosis of liver without ascites; I89.0 Lymphedema, not elsewhere classified; R79.89 Other specified abnormal findings of blood chemistry; E11.9 Type 2 diabetes mellitus without complications; K70.31 Alcoholic cirrhosis of liver with ascites; J44.9 Chronic obstructive pulmonary disease, unspecified; F41.8 Other specified anxiety disorders; B95.62 Methicillin resistant Staphylococcus aureus infection as the cause of diseases classified elsewhere
CPT/HCPCS: 36415; 49083; 71045; 80048; 80053; 80076; 80307; 82140; 82553; 82805; 82947; 83605; 83735; 83880; 84100; 84132; 84145; 84484; 85025; 85610; 85730; 87040; 87070; 87077; 87186; 87205; 88108; 88305; 89050; 93005; 93306; 94660; 94760; 96372; 96374; 96375; 99251; 99285; J1650; J1940; J2405; J2920; J2930; J3430; J3475; J7040; J7512; P9047

== ENCOUNTER 2020-02-15 22:27 | Emergency (ER) | payer OTHER ==
--- OUTSIDE RECORDS SUMMARY | 2020-02-15 22:33 | XMS REPORT ---
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 Allergies, Adverse Reactions, Alerts This patient has no known allergies or adverse reactions. Medications This patient has no known medications. Results Test Description Test Time Test Comments Text Results Atomic Results Result Comments BLOOD CULTURE IDENTIFICATION PANEL 2019-11-26 13:57:00 Test Item Value Reference Range Comments LISTERIA MONOCYTOGENES (test Not detected Not detected aqhq=[id number]) STAPHYLOCOCCUS (test Detected Not detected omag=3529305) STAPHYLOCOCCUS AUREUS (test Detected Not detected Methicillin-susceptible S. 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 involvement) ID CONSULTATION REQUIREDStaphylococcus aureus DETECTEDMecA NOT DETECTED Reference Range: Not Detected STREPTOCOCCUS (test Not detected Not detected jfqd=4120405) STREPTOCOCCUS AGALACTIAE Not detected Not detected (GROUP B) (test afme=2801640) STREPTOCOCCUS PNEUMONIAE Not detected Not detected (test clrl=0597883) STREPTOCOCCUS PYOGENES Not detected Not detected (GROUP A) (test ssld=0422504) ACINETOBACTER BAUMANNII Not detected Not detected (test idez=1671866) HAEMOPHILUS INFLUENZAE (test Not detected Not detected ixol=4067758) NEISSERIA MENINGITIDIS (test Not detected Not detected wqmy=2118341) ENTEROBACTERIACEAE (test Not detected Not detected xywu=6972637) ENTEROBACTER CLOACOE COMPLEX Not detected Not detected (test upge=3481968) KLEBSIELLA OXYTOCA (test Not detected Not detected uftl=5346112) KLEBSIELLA PNEUMONIAE (test Not detected Not detected angh=6823) PROTEUS (test plti=0587778) Not detected Not detected SERRATIA MARCESCENS (test Not detected Not detected cilf=6405948) ESTEPHANIA ALBICANS (test Not detected Not detected bscx=7742648) ESTEPHANIA GLABRATA (test Not detected Not detected cdew=5594830) ESTEPHANIA KRUSEI (test Not detected Not detected ffzv=0634890) ESTEPHANIA PARAPSILOSIS (test Not detected Not detected vano=1221640) ESTEPHANIA TROPICALIS (test Not detected Not detected cwsm=8735788) ESCHERICHIA COLI (test Not detected Not detected eczw=2403963) METHICILLIN-RESISTANCE GENE Not detected Not detected (test urpy=6256449) VANCOMYCIN-RESISTANCE GENE Not detected (test xzcs=0688477) CARBAPENEM-RESISTANCE GENE Not detected (test cevx=2159638) ENTEROCOCCUS-BEAKER (test Not detected Not detected bbkv=3535048) PSEUDOMONAS Not detected Not detected AERUGINOSA-BEAKER (test edhc=4350244) Other bacteria and resistance markers not targeted by this PCR panel cannot be excluded; therefore clinical correlation and follow up of serology, culture results, and other molecular studies is required. The results are not intended to be used as the sole means for clinical diagnosis or patient management decisions. This sample was tested at the [facility] Molecular Diagnostics Laboratory using the [employer] Blood Culture ID Panel. It is FDA cleared and has been verified and approved by the [facility] Molecular Diagnostics Laboratory for clinical use. This laboratory is CLIA-certified and College ofAmerican Pathologists (CAP)-accredited to perform high complexity testing.BLOOD [id number] 13:16:00 Test Item Value Reference Range Comments CULTURE (BEAKER) (test STAPHYLOCOCCUS AUREUS From Anaerobic Bottle sblb=8392) Only Staphylococcus aureus Clindamycin (test code=10) Erythromycin (test code=4) Linezolid (test code=40) Oxacillin (test code=14) Rifampin (test code=43) Tetracycline (test code=2) Trimethoprim + Sulfamethoxazole (test code=47) Vancomycin (test code=13) GRAM STAIN RESULT From anaerobic bottle (BEAKER) (test gpxq=4199) only: gram positive cocci in clusters BODY FLUID CULTURE + GRAM [id number] 13:16:00 Test Item Value Reference Range Comments CULTURE (BEAKER) (test STAPHYLOCOCCUS AUREUS 3+ Staphylococcus jdkn=2335) aureus Clindamycin (test code=10) Erythromycin (test code=4) Linezolid (test code=40) Nitrofurantoin (test code=23) Oxacillin (test code=14) Rifampin (test code=43) Tetracycline (test code=2) Trimethoprim + Sulfamethoxazole (test code=47) Vancomycin (test code=13) GRAM STAIN RESULT 4+ WBCs (BEAKER) (test qezk=1233) GRAM STAIN RESULT 1+ gram positive cocci (BEAKER) (test in pairs ljmu=275423) BLOOD [id number] 08:01:00 Test Item Value Reference Range Comments CULTURE (BEAKER) (test npyg=7505) No growth in 5 days BLOOD [id number] 08:01:00 Test Item Value Reference Range Comments CULTURE (BEAKER) (test dnca=9496) No growth in 5 days POCT-GLUCOSE [id number] 11:43:00 Test Item Value Reference Range Comments POC-GLUCOSE METER (BEAKER) 147 mg/dL 70-110 TESTED AT [address] (test fgnw=8332) [place] [address] BLOOD [id number] 08:01:00 Test Item Value Reference Range Comments CULTURE (BEAKER) (test pqmq=5473) No growth in 5 days BLOOD [id number] 08:01:00 Test Item Value Reference Range Comments CULTURE (BEAKER) (test xywd=0072) No growth in 5 days POCT-GLUCOSE [id number] 07:08:00 Test Item Value Reference Range Comments POC-GLUCOSE METER (BEAKER) 114 mg/dL 70-110 TESTED AT [address] (test ihlq=6140) [place] [address] BASIC METABOLIC [id number] 07:04:00 Test Item Value Reference Range Comments SODIUM (BEAKER) (test 134 meq/L 136-145 mwtk=465) POTASSIUM (BEAKER) (test 3.9 meq/L 3.5-5.1 Specimen slightly zosr=780) hemolyzed CHLORIDE (BEAKER) (test 105 meq/L 98-107 rxdq=991) CO2 (BEAKER) (test 23 meq/L 22-29 blsa=982) BLOOD UREA NITROGEN 13 mg/dL 7-21 (BEAKER) (test rxkz=488) CREATININE (BEAKER) (test 0.84 mg/dL 0.57-1.25 Specimen slightly pybv=869) hemolyzed GLUCOSE RANDOM (BEAKER) 92 mg/dL 70-105 (test nxyg=821) CALCIUM (BEAKER) (test 7.3 mg/dL 8.4-10.2 yjqm=068) EGFR (BEAKER) (test 95 mL/min/1.73 sq m ESTIMATED GFR IS NOT qsxd=6364) ACCURATE CREATININE CLEARANCE IN PREDICTING GLOMERULAR FILTRATION RATE. ESTIMATED GFR IS NOT APPLICABLE FOR DIALYSIS PATIENTS. [id number] 07:03:00 Test Item Value Reference Range Comments MAGNESIUM (BEAKER) (test 1.5 mg/dL 1.6-2.6 Specimen slightly hemolyzed bkve=377) [id number] 07:03:00 Test Item Value Reference Range Comments PHOSPHORUS (BEAKER) (test 3.2 mg/dL 2.3-4.7 Specimen slightly hemolyzed dnuz=427) HEPATIC FUNCTION [id number] 07:03:00 Test Item Value Reference Range Comments TOTAL PROTEIN (BEAKER) (test 6.6 gm/dL 6.0-8.3 Specimen slightly hemolyzed efcx=301) ALBUMIN (BEAKER) (test 2.0 g/dL 3.5-5.0 Specimen slightly hemolyzed xvos=7129) BILIRUBIN TOTAL (BEAKER) (test 1.7 mg/dL 0.2-1.2 Specimen slightly hemolyzed pkgh=120) BILIRUBIN DIRECT (BEAKER) (test 1.0 mg/dL 0.1-0.5 Specimen slightly hemolyzed twpw=387) ALKALINE PHOSPHATASE (BEAKER) 61 U/L 40-150 (test ohfc=236) AST (SGOT) (BEAKER) (test 64 U/L 5-34 Specimen slightly hemolyzed qpah=505) ALT (SGPT) (BEAKER) (test 36 U/L 6-55 Specimen slightly hemolyzed nxeg=297) CBC W/PLT COUNT & AUTO [id number] 06:32:00 Test Item Value Reference Range Comments WHITE BLOOD CELL COUNT (BEAKER) (test uofl=513) 9.3 K/ L 3.5-10.5 RED BLOOD CELL COUNT (BEAKER) (test ewne=064) 3.55 M/ L 4.63-6.08 HEMOGLOBIN (BEAKER) (test sdru=537) 10.8 GM/DL 13.7-17.5 HEMATOCRIT (BEAKER) (test zloy=607) 32.0 % 40.1-51.0 MEAN CORPUSCULAR VOLUME (BEAKER) (test zcwu=139) 90.1 fL 79.0-92.2 MEAN CORPUSCULAR HEMOGLOBIN (BEAKER) (test 30.4 pg 25.7-32.2 ndye=797) MEAN CORPUSCULAR HEMOGLOBIN CONC (BEAKER) (test 33.8 GM/DL 32.3-36.5 jrfd=970) RED CELL DISTRIBUTION WIDTH (BEAKER) (test 17.0 % 11.6-14.4 qmbl=789) PLATELET COUNT (BEAKER) (test idpn=354) 189 K/CU MM 150-450 MEAN PLATELET VOLUME (BEAKER) (test etbo=748) 11.9 fL 9.4-12.4 NUCLEATED RED BLOOD CELLS (BEAKER) (test 0 /100 WBC 0-0 nsfw=859) NEUTROPHILS RELATIVE PERCENT (BEAKER) (test 49 % qyzk=504) LYMPHOCYTES RELATIVE PERCENT (BEAKER) (test 38 % cpif=969) MONOCYTES RELATIVE PERCENT (BEAKER) (test 10 % uvsg=184) EOSINOPHILS RELATIVE PERCENT (BEAKER) (test 2 % kuif=795) BASOPHILS RELATIVE PERCENT (BEAKER) (test 1 % qwii=925) NEUTROPHILS ABSOLUTE COUNT (BEAKER) (test 4.51 K/ L 1.78-5.38 mfnu=596) LYMPHOCYTES ABSOLUTE COUNT (BEAKER) (test 3.51 K/ L 1.32-3.57 lonb=687) MONOCYTES ABSOLUTE COUNT (BEAKER) (test 0.94 K/ L 0.30-0.82 hhlp=586) EOSINOPHILS ABSOLUTE COUNT (BEAKER) (test 0.20 K/ L 0.04-0.54 yppu=266) BASOPHILS ABSOLUTE COUNT (BEAKER) (test 0.07 K/ L 0.01-0.08 dmhu=293) IMMATURE GRANULOCYTES-RELATIVE PERCENT (BEAKER) 0 % 0-1 (test fldt=3531) POCT-GLUCOSE [id number] 21:46:00 Test Item Value Reference Range Comments POC-GLUCOSE METER (BEAKER) 149 mg/dL 70-[address] [facility] [address] [facility] (test gong=5301) [facility] [address] BLOOD [id number] 20:01:00 Test Item Value Reference Range Comments CULTURE (BEAKER) (test tcih=9127) No growth in 5 days POCT-GLUCOSE [id number] 17:42:00 Test Item Value Reference Range Comments POC-GLUCOSE METER (BEAKER) 133 mg/dL 70-[address] [facility] [address] [facility] (test vars=0134) [facility] [address] POCT-GLUCOSE [id number] 12:10:00 Test Item Value Reference Range Comments POC-GLUCOSE METER (BEAKER) 198 mg/dL 70-[address] [facility] [address] [facility] (test ojit=0446) [facility] [address] [id number] 09:20:00 Test Item Value Reference Range Comments PHOSPHORUS (BEAKER) (test llgp=468) 3.3 mg/dL 2.3-4.7 [id number] 09:20:00 Test Item Value Reference Range Comments MAGNESIUM (BEAKER) (test kzqf=998) 1.6 mg/dL 1.6-2.6 BASIC METABOLIC [id number] 09:20:00 Test Item Value Reference Range Comments SODIUM (BEAKER) (test 136 meq/L 136-145 ynrv=203) POTASSIUM (BEAKER) (test 4.1 meq/L 3.5-5.1 ndqj=783) CHLORIDE (BEAKER) (test 101 meq/L 98-107 ykcn=235) CO2 (BEAKER) (test 29 meq/L 22-29 ubya=488) BLOOD UREA NITROGEN 13 mg/dL 7-21 (BEAKER) (test jmhj=702) CREATININE (BEAKER) (test 0.83 mg/dL 0.57-1.25 urti=624) GLUCOSE RANDOM (BEAKER) 130 mg/dL 70-105 (test rvmu=633) CALCIUM (BEAKER) (test 8.3 mg/dL 8.4-10.2 uieh=683) EGFR (BEAKER) (test 96 mL/min/1.73 sq m ESTIMATED GFR IS NOT sssx=0847) ACCURATE CREATININE CLEARANCE IN PREDICTING GLOMERULAR FILTRATION RATE. ESTIMATED GFR IS NOT APPLICABLE FOR DIALYSIS PATIENTS. HEPATIC FUNCTION [id number] 09:20:00 Test Item Value Reference Range Comments TOTAL PROTEIN (BEAKER) (test mhyd=417) 7.1 gm/dL 6.0-8.3 ALBUMIN (BEAKER) (test izep=2035) 2.2 g/dL 3.5-5.0 BILIRUBIN TOTAL (BEAKER) (test zpmc=943) 2.1 mg/dL 0.2-1.2 BILIRUBIN DIRECT (BEAKER) (test qgts=789) 1.5 mg/dL 0.1-0.5 ALKALINE PHOSPHATASE (BEAKER) (test ziei=886) 72 U/L 40-150 AST (SGOT) (BEAKER) (test xztl=387) 81 U/L 5-34 ALT (SGPT) (BEAKER) (test owvk=684) 48 U/L 6-55 CBC W/PLT COUNT & AUTO [id number] 08:57:00 Test Item Value Reference Range Comments WHITE BLOOD CELL COUNT (BEAKER) (test dqvi=841) 9.3 K/ L 3.5-10.5 RED BLOOD CELL COUNT (BEAKER) (test cgos=961) 3.46 M/ L 4.63-6.08 HEMOGLOBIN (BEAKER) (test pssq=287) 10.9 GM/DL 13.7-17.5 HEMATOCRIT (BEAKER) (test gaim=050) 31.7 % 40.1-51.0 MEAN CORPUSCULAR VOLUME (BEAKER) (test uyxk=745) 91.6 fL 79.0-92.2 MEAN CORPUSCULAR HEMOGLOBIN (BEAKER) (test 31.5 pg 25.7-32.2 txgp=264) MEAN CORPUSCULAR HEMOGLOBIN CONC (BEAKER) (test 34.4 GM/DL 32.3-36.5 zfot=497) RED CELL DISTRIBUTION WIDTH (BEAKER) (test 17.0 % 11.6-14.4 vmud=509) PLATELET COUNT (BEAKER) (test inui=092) 178 K/CU MM 150-450 MEAN PLATELET VOLUME (BEAKER) (test usgj=744) 12.2 fL 9.4-12.4 NUCLEATED RED BLOOD CELLS (BEAKER) (test 0 /100 WBC 0-0 pxxe=797) NEUTROPHILS RELATIVE PERCENT (BEAKER) (test 57 % rxjr=104) LYMPHOCYTES RELATIVE PERCENT (BEAKER) (test 31 % aiaq=107) MONOCYTES RELATIVE PERCENT (BEAKER) (test 9 % waqx=913) EOSINOPHILS RELATIVE PERCENT (BEAKER) (test 2 % dejn=815) BASOPHILS RELATIVE PERCENT (BEAKER) (test 1 % ehij=689) NEUTROPHILS ABSOLUTE COUNT (BEAKER) (test 5.31 K/ L 1.78-5.38 fyvj=368) LYMPHOCYTES ABSOLUTE COUNT (BEAKER) (test 2.88 K/ L 1.32-3.57 zxmw=576) MONOCYTES ABSOLUTE COUNT (BEAKER) (test 0.84 K/ L 0.30-0.82 bucq=778) EOSINOPHILS ABSOLUTE COUNT (BEAKER) (test 0.18 K/ L 0.04-0.54 tbij=793) BASOPHILS ABSOLUTE COUNT (BEAKER) (test 0.05 K/ L 0.01-0.08 iooe=310) IMMATURE GRANULOCYTES-RELATIVE PERCENT (BEAKER) 0 % 0-1 (test bxwo=3662) POCT-GLUCOSE [id number] 08:54:00 Test Item Value Reference Range Comments POC-GLUCOSE METER (BEAKER) 180 mg/dL 70-110 TESTED AT [address] (test yket=4630) [place] [address] BLOOD [id number] 08:01:00 Test Item Value Reference Range Comments CULTURE (BEAKER) (test vjfw=4233) No growth in 5 days BLOOD [id number] 02:01:00 Test Item Value Reference Range Comments CULTURE (BEAKER) (test fwye=6253) No growth in 5 days POCT-GLUCOSE [id number] 21:41:00 Test Item Value Reference Range Comments POC-GLUCOSE METER (BEAKER) 196 mg/dL 70-110 TESTED AT [address] (test dzcg=9834) [place] [id number] POCT-GLUCOSE [id number] 18:08:00 Test Item Value Reference Range Comments POC-GLUCOSE METER (BEAKER) 200 mg/dL 70-110 TESTED AT [address] (test tszn=5755) [place] [id number] POCT-GLUCOSE [id number] 12:44:00 Test Item Value Reference Range Comments POC-GLUCOSE METER (BEAKER) 149 mg/dL 70-110 TESTED AT [address] (test rvij=1603) [place] [id number] POCT-GLUCOSE [id number] 09:15:00 Test Item Value Reference Range Comments POC-GLUCOSE METER (BEAKER) 253 mg/dL 70-110 TESTED AT [address] (test lske=8588) [place] [address] [id number] 06:02:00 Test Item Value Reference Range Comments PHOSPHORUS (BEAKER) (test ywpx=772) 3.1 mg/dL 2.3-4.7 [id number] 06:02:00 Test Item Value Reference Range Comments MAGNESIUM (BEAKER) (test qsbe=862) 1.3 mg/dL 1.6-2.6 HEPATIC FUNCTION [id number] 06:02:00 Test Item Value Reference Range Comments TOTAL PROTEIN (BEAKER) (test zfwd=139) 6.4 gm/dL 6.0-8.3 ALBUMIN (BEAKER) (test ysbn=6790) 2.1 g/dL 3.5-5.0 BILIRUBIN TOTAL (BEAKER) (test fhsz=520) 1.9 mg/dL 0.2-1.2 BILIRUBIN DIRECT (BEAKER) (test ougo=449) 1.3 mg/dL 0.1-0.5 ALKALINE PHOSPHATASE (BEAKER) (test blmh=906) 89 U/L 40-150 AST (SGOT) (BEAKER) (test gpqm=532) 72 U/L 5-34 ALT (SGPT) (BEAKER) (test wsuj=698) 49 U/L 6-55 POCT-GLUCOSE [id number] 22:05:00 Test Item Value Reference Range Comments POC-GLUCOSE METER (BEAKER) 206 mg/dL 70-110 TESTED AT [address] (test scwc=1938) [place] [address] POCT-GLUCOSE [id number] 12:29:00 Test Item Value Reference Range Comments POC-GLUCOSE METER (BEAKER) 252 mg/dL 70-110 TESTED AT [address] (test vbrc=4155) [place] [address] BASIC METABOLIC [id number] 10:57:00 Test Item Value Reference Range Comments SODIUM (BEAKER) (test 137 meq/L 136-145 lkfd=060) POTASSIUM (BEAKER) (test 4.6 meq/L 3.5-5.1 Specimen slightly pujo=537) hemolyzed CHLORIDE (BEAKER) (test 102 meq/L 98-107 ogkd=800) CO2 (BEAKER) (test 27 meq/L 22-29 jopk=478) BLOOD UREA NITROGEN 14 mg/dL 7-21 (BEAKER) (test bulj=655) CREATININE (BEAKER) (test 0.87 mg/dL 0.57-1.25 Specimen slightly snjq=291) hemolyzed GLUCOSE RANDOM (BEAKER) 176 mg/dL 70-105 (test jkpr=145) CALCIUM (BEAKER) (test 7.7 mg/dL 8.4-10.2 jqjl=239) EGFR (BEAKER) (test 91 mL/min/1.73 sq m ESTIMATED GFR IS NOT cien=1247) ACCURATE CREATININE CLEARANCE IN PREDICTING GLOMERULAR FILTRATION RATE. ESTIMATED GFR IS NOT APPLICABLE FOR DIALYSIS PATIENTS. VANCOMYCIN LEVEL, [id number] 10:56:00 Test Item Value Reference Range Comments VANCOMYCIN RANDOM (BEAKER) (test xane=452) < ug/mL Reference Range: No NormalsAMIKACIN LEVEL, [id number] 10:56:00 Test Item Value Reference Range Comments AMIKACIN, RANDOM (BEAKER) (test louu=2102) < ug/mL No Normals Reference Range-No NormalsTherapeutic Range (ug/mL)Peak: 25.0-35.0 Trough: 4.0-8.0Toxic: >[id number] 10:55:00 Test Item Value Reference Range Comments MAGNESIUM (BEAKER) (test 2.0 mg/dL 1.6-2.6 Specimen moderately hemolyzed qxkx=659) [id number] 10:55:00 Test Item Value Reference Range Comments PHOSPHORUS (BEAKER) (test 3.2 mg/dL 2.3-4.7 Specimen moderately hemolyzed zwwm=316) HEPATIC FUNCTION [id number] 10:55:00 Test Item Value Reference Range Comments TOTAL PROTEIN (BEAKER) (test 6.8 gm/dL 6.0-8.3 Specimen moderately hemolyzed qpfz=654) ALBUMIN (BEAKER) (test 2.1 g/dL 3.5-5.0 Specimen moderately hemolyzed rseq=0215) BILIRUBIN TOTAL (BEAKER) (test 1.8 mg/dL 0.2-1.2 Specimen moderately hemolyzed dpoc=288) BILIRUBIN DIRECT (BEAKER) 1.0 mg/dL 0.1-0.5 Specimen moderately hemolyzed (test ssoq=642) ALKALINE PHOSPHATASE (BEAKER) 68 U/L 40-150 (test rjdb=809) AST (SGOT) (BEAKER) (test 123 U/L 5-34 Specimen moderately hemolyzed lfpw=017) ALT (SGPT) (BEAKER) (test 61 U/L 6-55 Specimen moderately wzgv=288) hemolyzed C-REACTIVE [id number] 10:55:00 Test Item Value Reference Range Comments C-REACTIVE PROTEIN (BEAKER) (test czoj=402) 2.04 mg/dL 0.00-0.50 CBC W/PLT COUNT & AUTO [id number] 10:35:00 Test Item Value Reference Range Comments WHITE BLOOD CELL COUNT (BEAKER) (test ljcq=739) 8.1 K/ L 3.5-10.5 RED BLOOD CELL COUNT (BEAKER) (test xyhc=331) 4.08 M/ L 4.63-6.08 HEMOGLOBIN (BEAKER) (test cjaw=924) 12.7 GM/DL 13.7-17.5 HEMATOCRIT (BEAKER) (test fhcl=240) 37.7 % 40.1-51.0 MEAN CORPUSCULAR VOLUME (BEAKER) (test bvlm=887) 92.4 fL 79.0-92.2 MEAN CORPUSCULAR HEMOGLOBIN (BEAKER) (test 31.1 pg 25.7-32.2 xfyy=047) MEAN CORPUSCULAR HEMOGLOBIN CONC (BEAKER) (test 33.7 GM/DL 32.3-36.5 uezf=575) RED CELL DISTRIBUTION WIDTH (BEAKER) (test 17.2 % 11.6-14.4 jhln=714) PLATELET COUNT (BEAKER) (test poxe=990) 172 K/CU MM 150-450 MEAN PLATELET VOLUME (BEAKER) (test cuum=999) 11.7 fL 9.4-12.4 NUCLEATED RED BLOOD CELLS (BEAKER) (test 0 /100 WBC 0-0 smsc=174) NEUTROPHILS RELATIVE PERCENT (BEAKER) (test 57 % gvhm=945) LYMPHOCYTES RELATIVE PERCENT (BEAKER) (test 31 % utxc=966) MONOCYTES RELATIVE PERCENT (BEAKER) (test 9 % prtq=760) EOSINOPHILS RELATIVE PERCENT (BEAKER) (test 2 % wkco=805) BASOPHILS RELATIVE PERCENT (BEAKER) (test 1 % zxbb=088) NEUTROPHILS ABSOLUTE COUNT (BEAKER) (test 4.63 K/ L 1.78-5.38 kiyw=950) LYMPHOCYTES ABSOLUTE COUNT (BEAKER) (test 2.48 K/ L 1.32-3.57 kcjr=422) MONOCYTES ABSOLUTE COUNT (BEAKER) (test 0.74 K/ L 0.30-0.82 euqe=787) EOSINOPHILS ABSOLUTE COUNT (BEAKER) (test 0.18 K/ L 0.04-0.54 wciu=424) BASOPHILS ABSOLUTE COUNT (BEAKER) (test 0.04 K/ L 0.01-0.08 czmc=476) IMMATURE GRANULOCYTES-RELATIVE PERCENT (BEAKER) 0 % 0-1 (test uoer=6032) POCT-GLUCOSE [id number] 07:28:00 Test Item Value Reference Range Comments POC-GLUCOSE METER (BEAKER) 129 mg/dL 70-110 TESTED AT [address] (test aqqe=1441) [place] [address] POCT-GLUCOSE [id number] 21:54:00 Test Item Value Reference Range Comments POC-GLUCOSE METER (BEAKER) 194 mg/dL 70-110 TESTED AT [address] (test hlaw=0414) [place] [address] POCT-GLUCOSE [id number] 18:07:00 Test Item Value Reference Range Comments POC-GLUCOSE METER (BEAKER) 140 mg/dL 70-110 TESTED AT [address] (test inbd=8700) [place] [address] POCT-GLUCOSE [id number] 11:33:00 Test Item Value Reference Range Comments POC-GLUCOSE METER (BEAKER) 202 mg/dL 70-110 TESTED AT [address] (test ezuq=2688) [place] [address] POCT-GLUCOSE [id number] 07:33:00 Test Item Value Reference Range Comments POC-GLUCOSE METER (BEAKER) 183 mg/dL 70-110 TESTED AT [address] (test xzei=0845) [place] [address] BASIC METABOLIC [id number] 05:24:00 Test Item Value Reference Range Comments SODIUM (BEAKER) (test 134 meq/L 136-145 zkar=558) POTASSIUM (BEAKER) (test 3.5 meq/L 3.5-5.1 mfrb=781) CHLORIDE (BEAKER) (test 100 meq/L 98-107 zbiz=542) CO2 (BEAKER) (test 29 meq/L 22-29 zgcy=008) BLOOD UREA NITROGEN 13 mg/dL 7-21 (BEAKER) (test jbgm=220) CREATININE (BEAKER) (test 0.82 mg/dL 0.57-1.25 yold=428) GLUCOSE RANDOM (BEAKER) 191 mg/dL 70-105 (test xmjf=809) CALCIUM (BEAKER) (test 7.3 mg/dL 8.4-10.2 gaxl=151) EGFR (BEAKER) (test 98 mL/min/1.73 sq m ESTIMATED GFR IS NOT uvhr=8078) ACCURATE CREATININE CLEARANCE IN PREDICTING GLOMERULAR FILTRATION RATE. ESTIMATED GFR IS NOT APPLICABLE FOR DIALYSIS PATIENTS. HEPATIC FUNCTION [id number] 05:22:00 Test Item Value Reference Range Comments TOTAL PROTEIN (BEAKER) (test hdlf=606) 5.7 gm/dL 6.0-8.3 ALBUMIN (BEAKER) (test bvxu=4765) 2.0 g/dL 3.5-5.0 BILIRUBIN TOTAL (BEAKER) (test dvcx=676) 1.9 mg/dL 0.2-1.2 BILIRUBIN DIRECT (BEAKER) (test jtay=236) 1.3 mg/dL 0.1-0.5 ALKALINE PHOSPHATASE (BEAKER) (test yzig=909) 74 U/L 40-150 AST (SGOT) (BEAKER) (test ewgo=036) 106 U/L 5-34 ALT (SGPT) (BEAKER) (test zvjs=227) 61 U/L 6-55 CALCIUM, [id number] 04:52:00 Test Item Value Reference Range Comments CALCIUM IONIZED (BEAKER) (test ahvz=317) 1.06 mmol/L 1.12-1.27 PH, BLOOD (BEAKER) (test qynp=1907) 7.53 [id number] 04:15:00 Test Item Value Reference Range Comments MAGNESIUM (BEAKER) (test 2.1 mg/dL 1.6-2.6 Specimen moderately hemolyzed gfvp=614) [id number] 04:15:00 Test Item Value Reference Range Comments PHOSPHORUS (BEAKER) (test 3.2 mg/dL 2.3-4.7 Specimen moderately hemolyzed vxyp=670) CBC W/PLT COUNT & AUTO [id number] 03:52:00 Test Item Value Reference Range Comments WHITE BLOOD CELL COUNT (BEAKER) (test klfu=453) 6.7 K/ L 3.5-10.5 RED BLOOD CELL COUNT (BEAKER) (test agcp=861) 3.58 M/ L 4.63-6.08 HEMOGLOBIN (BEAKER) (test bnld=386) 11.1 GM/DL 13.7-17.5 HEMATOCRIT (BEAKER) (test wifj=667) 32.6 % 40.1-51.0 MEAN CORPUSCULAR VOLUME (BEAKER) (test acln=623) 91.1 fL 79.0-92.2 MEAN CORPUSCULAR HEMOGLOBIN (BEAKER) (test 31.0 pg 25.7-32.2 bzqj=162) MEAN CORPUSCULAR HEMOGLOBIN CONC (BEAKER) (test 34.0 GM/DL 32.3-36.5 rory=680) RED CELL DISTRIBUTION WIDTH (BEAKER) (test 17.0 % 11.6-14.4 mouw=492) PLATELET COUNT (BEAKER) (test oyse=748) 124 K/CU MM 150-450 MEAN PLATELET VOLUME (BEAKER) (test trjw=071) 12.2 fL 9.4-12.4 NUCLEATED RED BLOOD CELLS (BEAKER) (test 0 /100 WBC 0-0 fofp=784) NEUTROPHILS RELATIVE PERCENT (BEAKER) (test 54 % ebta=873) LYMPHOCYTES RELATIVE PERCENT (BEAKER) (test 33 % eown=626) MONOCYTES RELATIVE PERCENT (BEAKER) (test 9 % smjx=525) EOSINOPHILS RELATIVE PERCENT (BEAKER) (test 3 % inrw=548) BASOPHILS RELATIVE PERCENT (BEAKER) (test 1 % sdjw=521) NEUTROPHILS ABSOLUTE COUNT (BEAKER) (test 3.60 K/ L 1.78-5.38 vhne=942) LYMPHOCYTES ABSOLUTE COUNT (BEAKER) (test 2.24 K/ L 1.32-3.57 jtxf=244) MONOCYTES ABSOLUTE COUNT (BEAKER) (test 0.59 K/ L 0.30-0.82 khws=382) EOSINOPHILS ABSOLUTE COUNT (BEAKER) (test 0.18 K/ L 0.04-0.54 gqho=875) BASOPHILS ABSOLUTE COUNT (BEAKER) (test 0.04 K/ L 0.01-0.08 fdpx=936) IMMATURE GRANULOCYTES-RELATIVE PERCENT (BEAKER) 1 % 0-1 (test kwtk=4192) POCT-GLUCOSE [id number] 21:58:00 Test Item Value Reference Range Comments POC-GLUCOSE METER (BEAKER) 250 mg/dL 70-110 TESTED AT [address] (test eane=1848) [place] [address] [id number] 20:39:00 Test Item Value Reference Range Comments MAGNESIUM (BEAKER) (test 1.6 mg/dL 1.6-2.6 Specimen slightly hemolyzed ilma=809) [id number] 20:39:00 Test Item Value Reference Range Comments POTASSIUM (BEAKER) (test 3.9 meq/L 3.5-5.1 Specimen slightly hemolyzed ffce=715) POCT-GLUCOSE [id number] 17:48:00 Test Item Value Reference Range Comments POC-GLUCOSE METER (BEAKER) 96 mg/dL 70-110 TESTED AT [address] (test rall=6800) [place] [address] POCT-GLUCOSE [id number] 11:14:00 Test Item Value Reference Range Comments POC-GLUCOSE METER (BEAKER) 317 mg/dL 70-110 Notified SKYLAR FERGUSON/TESTED AT [facility] (test uiho=8852) [address] [place] [address] RAD, CHEST, 1 VIEW, NON [id number] 09:39:00Reason for exam:->sobShould this be performed at [...] MDReport Verified Date/Time: 05/10/2019 09:39:51 [facility] BASIC METABOLIC [id number] 05:28:00 Test Item Value Reference Range Comments SODIUM (BEAKER) (test 133 meq/L 136-145 qyzz=871) POTASSIUM (BEAKER) (test 3.6 meq/L 3.5-5.1 ufsi=397) CHLORIDE (BEAKER) (test 100 meq/L 98-107 tfmy=491) CO2 (BEAKER) (test 28 meq/L 22-29 yhxj=530) BLOOD UREA NITROGEN 13 mg/dL 7-21 (BEAKER) (test rgvu=776) CREATININE (BEAKER) (test 0.83 mg/dL 0.57-1.25 sqdn=724) GLUCOSE RANDOM (BEAKER) 190 mg/dL 70-105 (test wzvz=963) CALCIUM (BEAKER) (test 7.2 mg/dL 8.4-10.2 taik=865) EGFR (BEAKER) (test 96 mL/min/1.73 sq m ESTIMATED GFR IS NOT bqdc=3370) ACCURATE CREATININE CLEARANCE IN PREDICTING GLOMERULAR FILTRATION RATE. ESTIMATED GFR IS NOT APPLICABLE FOR DIALYSIS PATIENTS. [id number] 05:24:00 Test Item Value Reference Range Comments PHOSPHORUS (BEAKER) (test chfr=937) 2.7 mg/dL 2.3-4.7 [id number] 05:24:00 Test Item Value Reference Range Comments MAGNESIUM (BEAKER) (test wmxu=986) 1.8 mg/dL 1.6-2.6 HEPATIC FUNCTION [id number] 05:24:00 Test Item Value Reference Range Comments TOTAL PROTEIN (BEAKER) (test gznj=104) 5.8 gm/dL 6.0-8.3 ALBUMIN (BEAKER) (test yrme=2305) 2.0 g/dL 3.5-5.0 BILIRUBIN TOTAL (BEAKER) (test zoze=903) 1.8 mg/dL 0.2-1.2 BILIRUBIN DIRECT (BEAKER) (test qcwy=028) 1.2 mg/dL 0.1-0.5 ALKALINE PHOSPHATASE (BEAKER) (test eabn=516) 74 U/L 40-150 AST (SGOT) (BEAKER) (test vqiy=234) 107 U/L 5-34 ALT (SGPT) (BEAKER) (test swhj=372) 66 U/L 6-55 CBC W/PLT COUNT & AUTO [id number] 04:46:00 Test Item Value Reference Range Comments WHITE BLOOD CELL COUNT (BEAKER) (test myyf=678) 7.7 K/ L 3.5-10.5 RED BLOOD CELL COUNT (BEAKER) (test fkqr=473) 3.76 M/ L 4.63-6.08 HEMOGLOBIN (BEAKER) (test mttl=648) 11.8 GM/DL 13.7-17.5 HEMATOCRIT (BEAKER) (test bztz=760) 34.8 % 40.1-51.0 MEAN CORPUSCULAR VOLUME (BEAKER) (test zifb=591) 92.6 fL 79.0-92.2 MEAN CORPUSCULAR HEMOGLOBIN (BEAKER) (test 31.4 pg 25.7-32.2 pmba=972) MEAN CORPUSCULAR HEMOGLOBIN CONC (BEAKER) (test 33.9 GM/DL 32.3-36.5 calk=723) RED CELL DISTRIBUTION WIDTH (BEAKER) (test 16.8 % 11.6-14.4 ivqm=189) PLATELET COUNT (BEAKER) (test mywm=453) 187 K/CU MM 150-450 MEAN PLATELET VOLUME (BEAKER) (test hpex=530) 11.1 fL 9.4-12.4 NUCLEATED RED BLOOD CELLS (BEAKER) (test 0 /100 WBC 0-0 aqvk=922) NEUTROPHILS RELATIVE PERCENT (BEAKER) (test 65 % hhgq=421) LYMPHOCYTES RELATIVE PERCENT (BEAKER) (test 24 % hxms=548) MONOCYTES RELATIVE PERCENT (BEAKER) (test 7 % bvyk=514) EOSINOPHILS RELATIVE PERCENT (BEAKER) (test 2 % qnec=613) BASOPHILS RELATIVE PERCENT (BEAKER) (test 0 % zifq=724) NEUTROPHILS ABSOLUTE COUNT (BEAKER) (test 4.98 K/ L 1.78-5.38 ycra=573) LYMPHOCYTES ABSOLUTE COUNT (BEAKER) (test 1.87 K/ L 1.32-3.57 pcgp=977) MONOCYTES ABSOLUTE COUNT (BEAKER) (test 0.56 K/ L 0.30-0.82 cdpg=107) EOSINOPHILS ABSOLUTE COUNT (BEAKER) (test 0.16 K/ L 0.04-0.54 ivsg=467) BASOPHILS ABSOLUTE COUNT (BEAKER) (test 0.03 K/ L 0.01-0.08 kzmv=130) IMMATURE GRANULOCYTES-RELATIVE PERCENT (BEAKER) 1 % 0-1 (test ipin=3079) POCT-GLUCOSE [id number] 22:14:00 Test Item Value Reference Range Comments POC-GLUCOSE METER (BEAKER) 159 mg/dL 70-110 TESTED AT [address] (test kbjp=1185) [place] [address] [id number] 21:52:00 Test Item Value Reference Range Comments MAGNESIUM (BEAKER) (test 1.5 mg/dL 1.6-2.6 Specimen slightly hemolyzed pngr=609) [id number] 21:52:00 Test Item Value Reference Range Comments PHOSPHORUS (BEAKER) (test 2.9 mg/dL 2.3-4.7 Specimen slightly hemolyzed mkxj=101) [id number] 21:52:00 Test Item Value Reference Range Comments POTASSIUM (BEAKER) (test 3.6 meq/L 3.5-5.1 Specimen slightly hemolyzed bxzo=812) POCT-GLUCOSE [id number] 18:30:00 Test Item Value Reference Range Comments POC-GLUCOSE METER (BEAKER) 150 mg/dL 70-110 TESTED AT [address] (test utga=3568) [place] [address] POCT-GLUCOSE [id number] 12:14:00 Test Item Value Reference Range Comments POC-GLUCOSE METER (BEAKER) 229 mg/dL 70-110 TESTED AT [address] (test qkrp=4820) [place] [address] POCT-GLUCOSE [id number] 07:18:00 Test Item Value Reference Range Comments POC-GLUCOSE METER (BEAKER) 111 mg/dL 70-110 TESTED AT [address] (test sisn=8551) [place] [address] BASIC METABOLIC [id number] 05:43:00 Test Item Value Reference Range Comments SODIUM (BEAKER) (test 136 meq/L 136-145 myqu=418) POTASSIUM (BEAKER) (test 3.4 meq/L 3.5-5.1 fyan=375) CHLORIDE (BEAKER) (test 102 meq/L 98-107 elbs=621) CO2 (BEAKER) (test 29 meq/L 22-29 umeo=857) BLOOD UREA NITROGEN 15 mg/dL 7-21 (BEAKER) (test pgnh=714) CREATININE (BEAKER) (test 0.75 mg/dL 0.57-1.25 ndzg=387) GLUCOSE RANDOM (BEAKER) 139 mg/dL 70-105 (test msjk=548) CALCIUM (BEAKER) (test 7.4 mg/dL 8.4-10.2 pame=384) EGFR (BEAKER) (test 108 mL/min/1.73 sq m ESTIMATED GFR IS NOT qhsh=8821) ACCURATE CREATININE CLEARANCE IN PREDICTING GLOMERULAR FILTRATION RATE. ESTIMATED GFR IS NOT APPLICABLE FOR DIALYSIS PATIENTS. [id number] 05:40:00 Test Item Value Reference Range Comments PHOSPHORUS (BEAKER) (test sdee=548) 3.1 mg/dL 2.3-4.7 [id number] 05:40:00 Test Item Value Reference Range Comments MAGNESIUM (BEAKER) (test cbbh=758) 1.9 mg/dL 1.6-2.6 HEPATIC FUNCTION [id number] 05:40:00 Test Item Value Reference Range Comments TOTAL PROTEIN (BEAKER) (test pxsc=958) 6.2 gm/dL 6.0-8.3 ALBUMIN (BEAKER) (test tsoj=9461) 2.3 g/dL 3.5-5.0 BILIRUBIN TOTAL (BEAKER) (test pdyc=183) 2.0 mg/dL 0.2-1.2 BILIRUBIN DIRECT (BEAKER) (test wsns=702) 1.3 mg/dL 0.1-0.5 ALKALINE PHOSPHATASE (BEAKER) (test ccep=722) 69 U/L 40-150 AST (SGOT) (BEAKER) (test mqmf=200) 116 U/L 5-34 ALT (SGPT) (BEAKER) (test jriu=201) 73 U/L 6-55 CBC (HEMOGRAM ONLY)2019-05-09 05:08:00 Test Item Value Reference Range Comments WHITE BLOOD CELL COUNT (BEAKER) (test wtpj=568) 7.2 K/ L 3.5-10.5 RED BLOOD CELL COUNT (BEAKER) (test dmzv=658) 3.99 M/ L 4.63-6.08 HEMOGLOBIN (BEAKER) (test yaut=642) 12.3 GM/DL 13.7-17.5 HEMATOCRIT (BEAKER) (test jcgh=830) 36.9 % 40.1-51.0 MEAN CORPUSCULAR VOLUME (BEAKER) (test acfb=057) 92.5 fL 79.0-92.2 MEAN CORPUSCULAR HEMOGLOBIN (BEAKER) (test 30.8 pg 25.7-32.2 rpqr=392) MEAN CORPUSCULAR HEMOGLOBIN CONC (BEAKER) (test 33.3 GM/DL 32.3-36.5 pkrt=507) RED CELL DISTRIBUTION WIDTH (BEAKER) (test 16.5 % 11.6-14.4 apir=768) PLATELET COUNT (BEAKER) (test bhnl=460) 197 K/CU MM 150-450 MEAN PLATELET VOLUME (BEAKER) (test fxii=911) 11.3 fL 9.4-12.4 NUCLEATED RED BLOOD CELLS (BEAKER) (test 0 /100 WBC 0-0 xmqf=830) POCT-GLUCOSE [id number] 23:52:00 Test Item Value Reference Range Comments POC-GLUCOSE METER (BEAKER) 281 mg/dL 70-110 TESTED AT [address] (test xgpg=3414) [place] [id number] POCT-GLUCOSE [id number] 13:10:00 Test Item Value Reference Range Comments POC-GLUCOSE METER (BEAKER) 174 mg/dL 70-110 TESTED AT [address] (test ofkj=4248) [place] [id number] POCT-GLUCOSE [id number] 08:09:00 Test Item Value Reference Range Comments POC-GLUCOSE METER (BEAKER) 185 mg/dL 70-110 TESTED AT [address] (test qegv=4299) [facility] [address] BASIC METABOLIC [id number] 04:58:00 Test Item Value Reference Range Comments SODIUM (BEAKER) (test 136 meq/L 136-145 zlxn=968) POTASSIUM (BEAKER) (test 3.5 meq/L 3.5-5.1 xnty=345) CHLORIDE (BEAKER) (test 104 meq/L 98-107 mjmf=257) CO2 (BEAKER) (test 26 meq/L 22-29 ylln=771) BLOOD UREA NITROGEN 18 mg/dL 7-21 (BEAKER) (test gkpn=828) CREATININE (BEAKER) (test 0.65 mg/dL 0.57-1.25 qsdj=126) GLUCOSE RANDOM (BEAKER) 117 mg/dL 70-105 (test jqbr=628) CALCIUM (BEAKER) (test 7.7 mg/dL 8.4-10.2 vitp=967) EGFR (BEAKER) (test 128 mL/min/1.73 sq m ESTIMATED GFR IS NOT kyqz=3025) ACCURATE CREATININE CLEARANCE IN PREDICTING GLOMERULAR FILTRATION RATE. ESTIMATED GFR IS NOT APPLICABLE FOR DIALYSIS PATIENTS. [id number] 04:51:00 Test Item Value Reference Range Comments PHOSPHORUS (BEAKER) (test klcu=284) 2.6 mg/dL 2.3-4.7 [id number] 04:51:00 Test Item Value Reference Range Comments MAGNESIUM (BEAKER) (test tyts=750) 1.4 mg/dL 1.6-2.6 HEPATIC FUNCTION [id number] 04:51:00 Test Item Value Reference Range Comments TOTAL PROTEIN (BEAKER) (test tdxo=976) 6.0 gm/dL 6.0-8.3 ALBUMIN (BEAKER) (test rvfc=5544) 2.3 g/dL 3.5-5.0 BILIRUBIN TOTAL (BEAKER) (test zpaw=242) 1.8 mg/dL 0.2-1.2 BILIRUBIN DIRECT (BEAKER) (test ffod=631) 1.1 mg/dL 0.1-0.5 ALKALINE PHOSPHATASE (BEAKER) (test dxnr=360) 63 U/L 40-150 AST (SGOT) (BEAKER) (test gght=303) 183 U/L 5-34 ALT (SGPT) (BEAKER) (test vrlm=507) 95 U/L 6-55 CBC (HEMOGRAM ONLY)2019-05-08 04:22:00 Test Item Value Reference Range Comments WHITE BLOOD CELL COUNT (BEAKER) (test oydk=845) 8.5 K/ L 3.5-10.5 RED BLOOD CELL COUNT (BEAKER) (test misl=429) 3.80 M/ L 4.63-6.08 HEMOGLOBIN (BEAKER) (test ewig=923) 11.9 GM/DL 13.7-17.5 HEMATOCRIT (BEAKER) (test mxvo=446) 35.3 % 40.1-51.0 MEAN CORPUSCULAR VOLUME (BEAKER) (test ihjf=542) 92.9 fL 79.0-92.2 MEAN CORPUSCULAR HEMOGLOBIN (BEAKER) (test 31.3 pg 25.7-32.2 ushq=566) MEAN CORPUSCULAR HEMOGLOBIN CONC (BEAKER) (test 33.7 GM/DL 32.3-36.5 qprt=565) RED CELL DISTRIBUTION WIDTH (BEAKER) (test 16.4 % 11.6-14.4 star=238) PLATELET COUNT (BEAKER) (test jqjo=596) 200 K/CU MM 150-450 MEAN PLATELET VOLUME (BEAKER) (test mmmh=050) 11.6 fL 9.4-12.4 NUCLEATED RED BLOOD CELLS (BEAKER) (test 0 /100 WBC 0-0 crth=575) VANCOMYCIN LEVEL, [id number] 00:32:00 Test Item Value Reference Range Comments VANCOMYCIN TROUGH (BEAKER) (test ylah=072) 16.4 ug/mL 10.0-20.0 Please draw 30 minutes before 3rd doseIf vancomycin trough level > 20 mcg/mL , hold next vancomycin dose, and contact MD and pharmacist.POCT-GLUCOSE [id number] 21:39:00 Test Item Value Reference Range Comments POC-GLUCOSE METER (BEAKER) 255 mg/dL 70-110 TESTED AT [address] (test kahz=2272) [facility] [address] POCT-GLUCOSE [id number] 18:25:00 Test Item Value Reference Range Comments POC-GLUCOSE METER (BEAKER) 164 mg/dL 70-110 TESTED AT [address] (test bnns=7649) [facility] [address] POCT-GLUCOSE [id number] 12:10:00 Test Item Value Reference Range Comments POC-GLUCOSE METER (BEAKER) 129 mg/dL 70-110 TESTED AT [address] (test lwuv=9190) [facility] [address] POCT-GLUCOSE [id number] 08:50:00 Test Item Value Reference Range Comments POC-GLUCOSE METER (BEAKER) 147 mg/dL 70-[address] [facility] [address] (test pzyp=3846) [facility] [address] BASIC METABOLIC [id number] 06:39:00 Test Item Value Reference Range Comments SODIUM (BEAKER) (test 135 meq/L 136-145 vxbh=149) POTASSIUM (BEAKER) (test 4.1 meq/L 3.5-5.1 haqr=256) CHLORIDE (BEAKER) (test 105 meq/L 98-107 vpsq=573) CO2 (BEAKER) (test 26 meq/L 22-29 eput=380) BLOOD UREA NITROGEN 20 mg/dL 7-21 (BEAKER) (test hegc=454) CREATININE (BEAKER) (test 0.78 mg/dL 0.57-1.25 kvio=810) GLUCOSE RANDOM (BEAKER) 153 mg/dL 70-105 (test kiqf=600) CALCIUM (BEAKER) (test 7.5 mg/dL 8.4-10.2 sqwl=539) EGFR (BEAKER) (test 103 mL/min/1.73 sq m ESTIMATED GFR IS NOT rsdp=0312) ACCURATE CREATININE CLEARANCE IN PREDICTING GLOMERULAR FILTRATION RATE. ESTIMATED GFR IS NOT APPLICABLE FOR DIALYSIS PATIENTS. [id number] 06:36:00 Test Item Value Reference Range Comments PHOSPHORUS (BEAKER) (test gnhx=812) 2.9 mg/dL 2.3-4.7 [id number] 06:36:00 Test Item Value Reference Range Comments MAGNESIUM (BEAKER) (test inkn=968) 1.8 mg/dL 1.6-2.6 HEPATIC FUNCTION [id number] 06:36:00 Test Item Value Reference Range Comments TOTAL PROTEIN (BEAKER) (test rsqe=975) 5.7 gm/dL 6.0-8.3 ALBUMIN (BEAKER) (test kftm=9707) 2.2 g/dL 3.5-5.0 BILIRUBIN TOTAL (BEAKER) (test hiyi=421) 1.9 mg/dL 0.2-1.2 BILIRUBIN DIRECT (BEAKER) (test nkpg=252) 1.2 mg/dL 0.1-0.5 ALKALINE PHOSPHATASE (BEAKER) (test xvyn=633) 59 U/L 40-150 AST (SGOT) (BEAKER) (test gjic=674) 195 U/L 5-34 ALT (SGPT) (BEAKER) (test ptnq=934) 87 U/L 6-55 [id number] 05:03:00 Test Item Value Reference Range Comments PROTIME (BEAKER) (test styd=434) 16.2 seconds 11.9-14.2 INR (BEAKER) (test aezu=327) 1.4 <=5.9 PARTIAL THROMBOPLASTIN TIME (BEAKER) (test 32.0 seconds 22.5-36.0 aaak=814) Effective 04/24/2019: PT Reference Range ChangeNew: 11.9-14.2 Previous: 11.7- 14.7RECOMMENDED COUMADIN/WARFARIN INR THERAPY RANGESSTANDARD DOSE: 2.0-3.0 Includes: PROPHYLAXIS for venous thrombosis, systemic embolization; TREATMENT for venous thrombosis and/or pulmonary embolus.HIGH RISK: Target INR is2.5-3.5 for patients wiht mechanical heart valves.CBC (HEMOGRAM ONLY)2019-05-07 04:58:00 Test Item Value Reference Range Comments WHITE BLOOD CELL COUNT (BEAKER) (test qjal=177) 9.5 K/ L 3.5-10.5 RED BLOOD CELL COUNT (BEAKER) (test assf=173) 3.74 M/ L 4.63-6.08 HEMOGLOBIN (BEAKER) (test ksit=770) 11.7 GM/DL 13.7-17.5 HEMATOCRIT (BEAKER) (test bwil=468) 35.1 % 40.1-51.0 MEAN CORPUSCULAR VOLUME (BEAKER) (test hqkn=253) 93.9 fL 79.0-92.2 MEAN CORPUSCULAR HEMOGLOBIN (BEAKER) (test 31.3 pg 25.7-32.2 blkg=794) MEAN CORPUSCULAR HEMOGLOBIN CONC (BEAKER) (test 33.3 GM/DL 32.3-36.5 wiwn=883) RED CELL DISTRIBUTION WIDTH (BEAKER) (test 16.2 % 11.6-14.4 yewa=423) PLATELET COUNT (BEAKER) (test ompa=915) 200 K/CU MM 150-450 MEAN PLATELET VOLUME (BEAKER) (test uyek=376) 12.2 fL 9.4-12.4 NUCLEATED RED BLOOD CELLS (BEAKER) (test 0 /100 WBC 0-0 igwi=234) POCT-GLUCOSE [id number] 00:04:00 Test Item Value Reference Range Comments POC-GLUCOSE METER (BEAKER) 263 mg/dL 70-[address] [facility] [address] [facility] (test rgfk=8959) [facility] [address] POCT-GLUCOSE [id number] 18:29:00 Test Item Value Reference Range Comments POC-GLUCOSE METER (BEAKER) 125 mg/dL 70-110 TESTED AT [address] (test mhby=2152) [facility] [address] BODY FLUID [id number] 15:37:00 Test Item Value Reference Range Comments CRYSTALS, BODY FLUID No crystals seen. (BEAKER) (test aujt=9490) [id number] Myranda Young MD (BEAKER) (test bvrv=3807) (electronic signature) BASIC METABOLIC [id number] 13:20:00 Test Item Value Reference Range Comments SODIUM (BEAKER) (test 132 meq/L 136-145 arae=219) POTASSIUM (BEAKER) (test 4.2 meq/L 3.5-5.1 Specimen slightly bpvd=257) hemolyzed CHLORIDE (BEAKER) (test 106 meq/L 98-107 vgpu=445) CO2 (BEAKER) (test 21 meq/L 22-29 ibei=503) BLOOD UREA NITROGEN 20 mg/dL 7-21 (BEAKER) (test istp=923) CREATININE (BEAKER) (test 0.68 mg/dL 0.57-1.25 Specimen slightly ispn=036) hemolyzed GLUCOSE RANDOM (BEAKER) 106 mg/dL 70-105 (test agmu=527) CALCIUM (BEAKER) (test 7.3 mg/dL 8.4-10.2 xkuf=482) EGFR (BEAKER) (test 121 mL/min/1.73 sq m ESTIMATED GFR IS NOT skhd=7292) ACCURATE CREATININE CLEARANCE IN PREDICTING GLOMERULAR FILTRATION RATE. ESTIMATED GFR IS NOT APPLICABLE FOR DIALYSIS PATIENTS. Specimen slightly [id number] 13:18:00 Test Item Value Reference Range Comments MAGNESIUM (BEAKER) (test 1.8 mg/dL 1.6-2.6 Specimen slightly hemolyzed kxft=518) [id number] 13:18:00 Test Item Value Reference Range Comments PHOSPHORUS (BEAKER) (test 2.7 mg/dL 2.3-4.7 Specimen slightly hemolyzed obwk=862) HEPATIC FUNCTION [id number] 13:18:00 Test Item Value Reference Range Comments TOTAL PROTEIN (BEAKER) (test 5.6 gm/dL 6.0-8.3 Specimen slightly hemolyzed hwks=330) ALBUMIN (BEAKER) (test 2.2 g/dL 3.5-5.0 Specimen slightly hemolyzed ksxf=4841) BILIRUBIN TOTAL (BEAKER) (test 2.7 mg/dL 0.2-1.2 Specimen slightly hemolyzed raxv=735) BILIRUBIN DIRECT (BEAKER) (test 1.2 mg/dL 0.1-0.5 Specimen slightly hemolyzed nded=420) ALKALINE PHOSPHATASE (BEAKER) 60 U/L 40-150 (test ojcl=918) AST (SGOT) (BEAKER) (test 223 U/L 5-34 Specimen slightly hemolyzed ejbo=306) ALT (SGPT) (BEAKER) (test 83 U/L 6-55 Specimen slightly hemolyzed yzjy=323) Specimen slightly ictericPOCT-GLUCOSE [id number] 12:55:00 Test Item Value Reference Range Comments POC-GLUCOSE METER (BEAKER) 117 mg/dL 70-110 TESTED AT [address] (test xibp=2662) [place] [id number] VANCOMYCIN LEVEL, [id number] 12:14:00 Test Item Value Reference Range Comments VANCOMYCIN TROUGH (BEAKER) (test qila=382) 10.0 ug/mL 10.0-20.0 POCT-GLUCOSE [id number] 06:26:00 Test Item Value Reference Range Comments POC-GLUCOSE METER (BEAKER) 121 mg/dL 70-110 TESTED AT [address] (test lvjj=0538) [facility] [address] RAPID DRUG SCREEN, [id number] 04:06:00 Test Item Value Reference Range Comments BARBITURATE URINE (BEAKER) (test dffg=750) Negative Negative BENZODIAZEPINE SCREEN URINE (BEAKER) (test Negative Negative srkg=375) COCAINE (METAB.) SCREEN (BEAKER) (test wyaw=4210) Negative Negative METHADONE SCREEN (BEAKER) (test vkxz=0662) Negative Negative OPIATE SCREEN URINE (BEAKER) (test ncdc=190) Positive Negative CANNABINOID SCREEN URINE (BEAKER) (test givd=280) Negative Negative AMPH/METHAMPH SCREEN (BEAKER) (test akor=2450) Positive Negative PHENCYCLIDINE SCREEN URINE (BEAKER) (test ekji=043) Negative Negative DRUG CUTOFF CONC.Cocaine 300 ng/mL Cannabinoid 50 ng/mLBenzodiazepine 200 ng/mLBarbiturate 200 ng/ mLPhencyclidine 25 ng/mLOpiate 300 ng/mLMethadone 300 ng/mLAmphetamine/ 1000 ng/mL MethamphetamineThis assay provides an unconfirmed qualitative test result for the clinical management of patients in emergency situations. Chain of custody not maintained. Some dzfq-cws-gyymtuo medications, as well as adulterants, may cause inaccurate results. Clinical correlation should be applied. A more comprehensivedrug screen or confirmation of a detected drug may be performed upon request.POCT-GLUCOSE [id number] 00 :34:00 Test Item Value Reference Range Comments POC-GLUCOSE METER (BEAKER) 171 mg/dL 70-[address] [facility] [address] [facility] (test yvhm=0423) [facility] [address] POCT-GLUCOSE [id number] 18:00:00 Test Item Value Reference Range Comments POC-GLUCOSE METER (BEAKER) 283 mg/dL 70-110 TESTED AT [place] [id number] [facility] (test baxi=6682) [place] [address] RAD, LEG, [id number] 17:07:00Reason for exam:->evaluate for air concerning for [...] MDReport Verified Date/Time: 05/05/2019 17:07:13 Reading Location: [facility] [id number] Ortho Consult Reading Room [id number] 16:54:00 Test Item Value Reference Range Comments PARTIAL THROMBOPLASTIN TIME (BEAKER) (test 32.0 seconds 22.5-36.0 tmlj=312) PROTHROMBIN TIME/[id number] 16:53:00 Test Item Value Reference Range Comments PROTIME (BEAKER) (test cmjh=768) 17.3 seconds 11.9-14.2 INR (BEAKER) (test qdok=866) 1.5 <=5.9 Effective 04/24/2019: PT Reference Range ChangeNew: 11.9-14.2 Previous: 11.7- 14.7RECOMMENDED COUMADIN/WARFARIN INR THERAPY RANGESSTANDARD DOSE: 2.0-3.0 Includes: PROPHYLAXIS for venous thrombosis, systemic embolization; TREATMENT for venous thrombosis and/or pulmonary embolus.HIGH RISK: Target INR is2.5-3.5 for patients wiht mechanical heart valves.CBC W/PLT COUNT & AUTO [id number] 16:46:00 Test Item Value Reference Range Comments WHITE BLOOD CELL COUNT (BEAKER) (test ugtp=862) 10.2 K/ L 3.5-10.5 RED BLOOD CELL COUNT (BEAKER) (test zqag=597) 4.12 M/ L 4.63-6.08 HEMOGLOBIN (BEAKER) (test yvcl=907) 12.7 GM/DL 13.7-17.5 HEMATOCRIT (BEAKER) (test azbb=824) 38.5 % 40.1-51.0 MEAN CORPUSCULAR VOLUME (BEAKER) (test zwfx=658) 93.4 fL 79.0-92.2 MEAN CORPUSCULAR HEMOGLOBIN (BEAKER) (test 30.8 pg 25.7-32.2 zvaj=574) MEAN CORPUSCULAR HEMOGLOBIN CONC (BEAKER) (test 33.0 GM/DL 32.3-36.5 hkjz=324) RED CELL DISTRIBUTION WIDTH (BEAKER) (test 16.2 % 11.6-14.4 xgpp=023) PLATELET COUNT (BEAKER) (test iazx=346) 169 K/CU MM 150-450 MEAN PLATELET VOLUME (BEAKER) (test lhyk=376) 12.6 fL 9.4-12.4 NUCLEATED RED BLOOD CELLS (BEAKER) (test 0 /100 WBC 0-0 befw=212) NEUTROPHILS RELATIVE PERCENT (BEAKER) (test 71 % pcfm=358) LYMPHOCYTES RELATIVE PERCENT (BEAKER) (test 16 % odwc=026) MONOCYTES RELATIVE PERCENT (BEAKER) (test 10 % ntbg=569) EOSINOPHILS RELATIVE PERCENT (BEAKER) (test 2 % zixm=172) BASOPHILS RELATIVE PERCENT (BEAKER) (test 0 % kmnr=839) NEUTROPHILS ABSOLUTE COUNT (BEAKER) (test 7.16 K/ L 1.78-5.38 tzer=065) LYMPHOCYTES ABSOLUTE COUNT (BEAKER) (test 1.64 K/ L 1.32-3.57 xtyk=465) MONOCYTES ABSOLUTE COUNT (BEAKER) (test 1.04 K/ L 0.30-0.82 eoxg=917) EOSINOPHILS ABSOLUTE COUNT (BEAKER) (test 0.17 K/ L 0.04-0.54 ipqu=149) BASOPHILS ABSOLUTE COUNT (BEAKER) (test 0.03 K/ L 0.01-0.08 rvtk=837) IMMATURE GRANULOCYTES-RELATIVE PERCENT (BEAKER) 1 % 0-1 (test rvwi=9680) B-TYPE NATRIURETIC FACTOR (BNP)2019-05-05 16:37:00 Test Item Value Reference Range Comments B-TYPE NATRIURETIC PEPTIDE (BEAKER) (test 1891 pg/mL 0-100 vtpz=715) BODY FLUID CELL COUNT WITH [id number] 16:32:00 Test Item Value Reference Range Comments APPEARANCE FLUID (BEAKER) (test cozn=963) Cloudy Clear COLOR FLUID (BEAKER) (test epnq=900) Red Colorless, Straw RBC FLUID (BEAKER) (test hhnb=221) 75443 /cu mm <=1 ADJUSTED WBC FLUID (BEAKER) (test tqbk=0840) 2560 /cu mm <=5 LINING CELLS (BEAKER) (test eyez=3952) 0 /cu mm <=1 NEUTROPHILS FLUID (BEAKER) (test yavc=5614) 94 % LYMPHS FLUID (BEAKER) (test pvoy=043) 2 % MONO/MACROPHAGE FLUID (BEAKER) (test vrrh=659) 4 % EOSINOPHILS FLUID (BEAKER) (test krur=314) 0 % BASO FLUID (BEAKER) (test mcbd=778) 0 % CONTAINER BODY FLUID (BEAKER) (test ymxv=1329) Sterile Cup BASIC METABOLIC [id number] 16:31:00 Test Item Value Reference Range Comments SODIUM (BEAKER) (test 133 meq/L 136-145 cbpn=832) POTASSIUM (BEAKER) (test 3.9 meq/L 3.5-5.1 aeyl=213) CHLORIDE (BEAKER) (test 103 meq/L 98-107 evwu=046) CO2 (BEAKER) (test 26 meq/L 22-29 fjhc=726) BLOOD UREA NITROGEN 18 mg/dL 7-21 (BEAKER) (test rvac=518) CREATININE (BEAKER) (test 0.71 mg/dL 0.57-1.25 omkp=854) GLUCOSE RANDOM (BEAKER) 152 mg/dL 70-105 (test dqad=001) CALCIUM (BEAKER) (test 7.8 mg/dL 8.4-10.2 kezy=525) EGFR (BEAKER) (test 115 mL/min/1.73 sq m ESTIMATED GFR IS NOT kkpp=4262) ACCURATE CREATININE CLEARANCE IN PREDICTING GLOMERULAR FILTRATION RATE. ESTIMATED GFR IS NOT APPLICABLE FOR DIALYSIS PATIENTS. [id number] 16:30:00 Test Item Value Reference Range Comments PHOSPHORUS (BEAKER) (test ypit=117) 2.3 mg/dL 2.3-4.7 [id number] 16:30:00 Test Item Value Reference Range Comments MAGNESIUM (BEAKER) (test ucvg=929) 1.4 mg/dL 1.6-2.6 C-REACTIVE [id number] 16:30:00 Test Item Value Reference Range Comments C-REACTIVE PROTEIN (BEAKER) (test pyhp=951) 3.40 mg/dL 0.00-0.50 RAD, CHEST, 1 VIEW, NON [id number] 14:59:00Reason for exam:->dyspnea, history of CHF and [...] Watson Verified Date/Time: 05/05/2019 14:59:38 Reading Location: [place] [id number] CT Body Reading Room RAD, KNEE, 3 VIEWS, [id number] 13: 28:00Reason for exam:->concern for septic arthritisShould this be performed at the bedside?->YesFINAL REPORT Right knee. HISTORY: Concern for septic arthritis. COMPARISON STUDY: None available. FINDINGS: Four views of the right knee demonstrate no evidence of fracture, malalignment or effusion. Atherosclerosis is seen. Signed: Tremayne Lundberg Verified Date/Time: 05/05/2019 13:28:26 Reading Location: [place] [id number] Ortho Consult Reading Room POCT-GLUCOSE [id number] 12:03:00 Test Item Value Reference Range Comments POC-GLUCOSE METER (ELIZABETH) 209 mg/dL 70-[address] [facility] [address] [place] [address] (test gdvu=2917) [facility] [id number]
--- OUTSIDE RECORDS SUMMARY | 2020-02-15 22:39 | XMS REPORT | Summary of Care ---
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 Dianna Barrett GY Procedures Discharge Follow-Up: Specialty Service IM-GASTROENTEROLOGY; 4-6 Weeks MD Carlie [address] [place] [phone] (Routine) Status Reason Specialty Diagnoses / Referred By Referred To Procedures Contact Contact New Request IM-ADVANCED HEART Diagnoses 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 Dianna Barrett FAILURE & Procedures Discharge Follow-Up: Specialty Service IM-ADVANCED HEART FAILURE & TRANSPLANT CARDIOLOGY; 4-6 Weeks MD Carlie TRANSPLANT [address] [place] [address] [place] [address] (Routine) Status Reason Specialty Diagnoses / Referred By Contact Referred To Procedures Contact New Request Diagnoses 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 [place]. [address] [place] [address] Radiology Services (Routine) Status Reason Specialty Diagnoses / Referred By Referred To Procedures Contact Contact New Request Diagnostic Diagnoses Decompensated hepatic cirrhosis Brigido, Radiology Procedures US ABDOMEN LIMITED WITH DOPPLER US ABDOMEN LIMITED DO Junior [address] [place] [phone] Radiology Services (DELANO) Status Reason Specialty Diagnoses / Referred By Referred To Procedures Contact Contact New Request Diagnostic Diagnoses SOB (shortness of breath) Jose Erazo MD Radiology Procedures XR CHEST 1 [address] [place] [address] (Routine) Status Reason Specialty Diagnoses / Referred By Contact Referred To Procedures Contact Denied Case Management Procedures Jose Erazo MD CONSULT/REFERRAL [address] [facility] [place] [address] Radiology Services (DELANO) Status Reason Specialty Diagnoses / Referred By Referred To Procedures Contact Contact New Request Diagnostic Diagnoses SOB (shortness of breath) Jose Erazo MD Radiology Procedures XR CHEST 1 [address] [place] [place] [address] (Routine) Status Reason Specialty Diagnoses / Referred By Referred To Procedures Contact Contact New Request Vascular Surgery Procedures Jose Erazo MD BILATERAL VENOUS [address] EXTREMITY BY [place]. [facility] [place] [address] Reason for Visit Reason Comments ULTRASOUND Auth/Cert Status Reason Specialty Diagnoses / Referred By Referred To Procedures Contact Contact Medicine - Diagnoses ASITES RIGHT PLUERAL EFFUSION Hilda 10d Inpatient only 712 [place] [address] Encounter Details Date Type Department Care Team Description 11/26/2019 - [facility] Family Medicine Jose Erazo MD [address] [place] [place], [place] [address] Decompensated 12/18/2019 Encounter (HILDA 10D) Roc Razo MD [address] [place] [address] [phone] hepatic cirrhosis 712 [facility] Dianna Barrett MD [address] [place] [phone] [place], [place] Brigitte Magallanes MD [address] [facility] [address] [place], [place] [phone] Allergies No Known Allergiesdocumented as of this encounter (statuses as of 12/18/2019) Medications Medication Sig Dispensed Refills Start Date End Date Status thiamine 100 mg Take 1 tablet 30 tablet 5 12/19/2019 Active tabletIndications: by mouth Decompensated daily. hepatic cirrhosis, Acute on chronic combined systolic and diastolic congestive heart failure furosemide 40 mg Take 1 tablet 60 tablet 2 12/18/2019 Active tabletIndications: by mouth every Decompensated morning and hepatic cirrhosis, evening. Acute on chronic combined systolic and diastolic congestive heart failure aspirin 81 mg Take 1 tablet 30 tablet 2 12/19/2019 Active chewable by mouth tabletIndications: daily. Decompensated hepatic cirrhosis, Acute on chronic combined systolic and diastolic congestive heart failure carvediloL 12.5 mg Take 1 tablet 30 tablet 2 12/18/2019 Active tabletIndications: by mouth 2 Decompensated (two) times hepatic cirrhosis, daily with Acute on chronic meals. combined systolic and diastolic congestive heart failure foLIC acid 1 mg Take 1 tablet 30 tablet 5 12/19/2019 Active tabletIndications: by mouth Decompensated daily. hepatic cirrhosis, Acute on chronic combined systolic and diastolic congestive heart failure hydrOXYzine 10 mg Take 1 tablet 30 tablet 2 12/18/2019 Active tabletIndications: by mouth every Decompensated 6 (six) hours hepatic cirrhosis, as needed for Acute on chronic Itching or combined systolic Anxiety. and diastolic congestive heart failure ipratropium-albutero Inhale 3 mL 1 Box 1 12/18/2019 Active l 0.5 mg-3 mg(2.5 mg every 4 (four) base)/3 mL nebulizer hours as solutionIndications: needed for Decompensated Wheezing or hepatic cirrhosis, Shortness of Acute on chronic Breath. combined systolic and diastolic congestive heart failure lactulose 10 gram/15 Take 30 mL by 1 Bottle 5 12/18/2019 Active mL mouth 2 (two) solutionIndications: times daily. Decompensated hepatic cirrhosis, Acute on chronic combined systolic and diastolic congestive heart failure magnesium oxide 420 Take 800 mg by 60 tablet 2 12/18/2019 Active mg TabIndications: mouth 2 (two) Decompensated times daily. hepatic cirrhosis, Acute on chronic combined systolic and diastolic congestive heart failure nicotine 21 mg/24 hr Apply 1 Patch 28 Patch 3 12/19/2019 Active patchIndications: to area(s) Decompensated every 24 hepatic cirrhosis, (twenty-four) Acute on chronic hours. combined systolic and diastolic congestive heart failure ramelteon 8 mg Take 1 tablet 30 tablet 2 12/18/2019 Active tabletIndications: by mouth at Decompensated bedtime. hepatic cirrhosis, Acute on chronic combined systolic and diastolic congestive heart failure SERTraline 25 mg Take 1 tablet 30 tablet 2 12/18/2019 Active tabletIndications: by mouth at Decompensated bedtime. hepatic cirrhosis, Acute on chronic combined systolic and diastolic congestive heart failure spironolactone 100 Take 2 tablets 60 tablet 2 12/19/2019 Active mg by mouth tabletIndications: daily. Decompensated hepatic cirrhosis, Acute on chronic combined systolic and diastolic congestive heart failure temazepam 15 mg Take 1 capsule 30 capsule 0 10/19/2017 Discontinued capsule by mouth at 0 bedtime as needed for Insomnia. predniSONE 10 mg Take 3 tablets 9 tablet 0 06/15/2019 Discontinued tabletIndications: by mouth 0 Dyspnea, unspecified daily. type, COPD exacerbation albuterol 90 Inhale 2 Puffs 8.5 g 0 06/15/2019 Discontinued mcg/actuation every 6 (six) 0 inhalerIndications: hours as COPD exacerbation needed for Wheezing or Shortness of Breath. ipratropium 17 Inhale 2 Puffs 12.9 g 0 06/15/2019 Discontinued mcg/actuation 3 (three) 0 inhalerIndications: times daily. COPD exacerbation digoxin 250 mcg Take 250 mcg 0 Discontinued (0.25 mg) tablet by mouth 0 daily. sacubitril-valsartan Take 1 tablet 0 Discontinued (ENTRESTO) 24-26 mg by mouth 2 0 tablet (two) times daily. furosemide (LASIX) Take 40 mg by 0 Discontinued 40 mg tablet mouth every 0 morning and evening. documented as of this encounter (statuses as of 12/18/2019) Active Problems Problem Noted Date E44.0 Moderate protein calorie malnutrition 11/27/2019 Decompensated hepatic cirrhosis 11/26/2019 COPD exacerbation 2019 CHF exacerbation 10/18/2017 Obesity (BMI 30-39.9) 10/18/2017 documented as of this encounter (statuses as of 12/18/2019) Immunizations Name Administration Dates Next Due Influenza Virus Vaccine Quad IM 3+ YRS 10/19/2017 Pneumococcal Polysaccharide, PPSV23 (PNEUMOVAX) 10/19/2017 documented as of this encounter Social History Tobacco Use Types Packs/Day Years Used Date Current Some Day Smoker Cigarettes Smokeless Tobacco: Never Used Comments: 2 packs a week Alcohol Use Drinks/Week oz/Week Comments No Sex Assigned at Date Recorded Not on file Job Start Date Occupation Industry Not on file Not on file Not on file Travel History Travel Start Travel End No recent travel history available. documented as of this encounter Last Filed Vital Signs Vital Sign Reading Time Taken Comments Blood Pressure 111/56 12/18/2019 3:10 PM SERVICENOW ADMINISTRATOR Pulse 64 12/18/2019 3:10 PM SERVICENOW ADMINISTRATOR Temperature 36.7 C (98 F) 12/18/2019 3:10 PM SERVICENOW ADMINISTRATOR Respiratory Rate 18 12/18/2019 3:10 PM SERVICENOW ADMINISTRATOR Oxygen Saturation 99% 12/18/2019 3:10 PM SERVICENOW ADMINISTRATOR Inhaled Oxygen Concentration - - Weight 88.5 kg (195 lb) 12/17/2019 9:27 AM SERVICENOW ADMINISTRATOR Height 177.8 cm (5' 10") 12/17/2019 9:27 AM SERVICENOW ADMINISTRATOR Body Mass Index 27.98 12/17/2019 9:27 AM SERVICENOW ADMINISTRATOR documented in this encounter Discharge Summaries Zaheer Mackenzie RN - 12/18/2019 3:30 PM SERVICENOW ADMINISTRATOR Care Management Discharge Disposition Note (DCDN) 5-2-1 Interventions: Disease specific education;Home visit/home health referral; Intensive medicationreconciliation/management;Clear discharge plan;Follow-up phone calls;Follow-up appointments 5-2-1 Providers: Physician;Or First Assist Registered Nurse/Gas Station Attendant;Nurse Educator;Nurse 5-2-1 Patient Capacity Improvements: Transportation arrangements;Referral to Care Transition Team Discharge Plan for ongoing care and services: Durable Medical Equipment;Home Health () Discharge location(s): Home Health location: [facility], [address] [place] [address]. [place] [address]() [phone] (F) [phone] DME location: Other Other DME location: [employer] for life vest, oxygen through [employer] patient Patient choice completed for referred services: Yes Discussed with patient/patients family involved in decision making: Yes Patient or family caregiver understands, and agrees with discharge plan. Community resources/referrals made or provided to patient: Yes Resources/Referrals: P;[facility] Resources Fact Sheets Transportation: Private Vehicle(Tamera Dhaliwal; ex sister in law; [phone]) Nursing informed of discharge plan: No Estimated discharge date: 12/18/19 Time: 1929 Voucher [id number] with [employer] taxi at front [phone] CM/SW Name & Contact number: VU Spear, RN Hospice Team Lead [email or web address] O:[phone] F:[phone] The following information has been provided to the facility noted above: reason for the patient discharge or transfer; patients physical and psychosocial status; summary of care, treatment, servicesprovided to patient; and the patient progress toward goals. documented in this encounter Discharge Instructions AttachmentsThe following attachments cannot be sent through Care Everywhere.Aspirin, ASA oral tablets (Ugandan)Carvedilol tablets (Ugandan) Folate (Ugandan)Lactulose powder for oral solution (Ugandan)Magnesium Salts capsules or tablets, immediate release (Ugandan)Spironolactone tablets (Ugandan) Hydroxyzine oral solution (Ugandan)Ramelteon tablets (Ugandan)Sertraline tablets (Ugandan)Surgical Site Infections, Preventing (Ugandan)Washing Your Hands, Prmm-hj-Tedk (Ugandan)Cardiac Catheterization, Transradial, Understanding (Ugandan)documented in this encounter Progress Notes Zaheer Mackenzie, RN - 12/18/2019 3:22 PM SERVICENOW ADMINISTRATOR Bob Dhaliwal [id number] 1965 RE: Care Management Patient Choice Notification Your doctor has recommended that you have post-hospital care services at discharge. You can choose the provider you want, regardless of its relationship with [facility]. We will contact any of the agencieswithin the [facility] network, or any other agency upon your request. Based on where you live and agency service areas, a list was generated from: Medicare.gov Disclosure: [facility] owns or is affiliated with the following facilities/agencies: [facility] (alf and rehabilitation) Patient Choice Acknowledgement I, Bob Dhaliwal / authorized account development representative, am aware that I have choice in selecting post-hospital care providers. [facility] has given me a list of providers in the area available to me and/or myauthorized account development representative. My choice(s) are listed below: ? HH: [facility] , [address] [place] [address] () (F) [phone] Your signature on this form indicates that you have been given the following information: ? I have been advised of my right to choose the providers I wish ? If alf facilities, long-term acute care hospitals, personal care homes, or home healthagencies were recommended, I was given a list of facilities /agencies in my geographic area that deliver these services or ? I have pre-selected or am an established client with a facility/agency and choose to initiate/continue services 12/18/19 Patient/Guardian/Responsible Alliance Party Signature Date Dave Diaz RN - 12/17/2019 4:40 PM CSTCare Management Continued Stay Assessment LOS Day: 21 Estimated /Planned Discharge Date: 12/18 Sherri male 54 year old Date CM/SW last Face to Face completed with patient/family: 12/16 Funding source: Payor: MEDICARE / Plan: MEDICARE PART A & B / Product Type: Medicare / Insurance DC train planner: self PCP:Greer Gaviria Patient/Family/MPOA/Caregiver Engaged with Transitional Care Plan: yes Patient/Family/MPOA/Caregiver concurs with proposed discharge plan: yes Name, Relationship to Patient and contact number of individual acting on behalf of the patient: patient Chief Complaint/Admitting Dx:Ascites RIGHT PLUERAL EFFUSION Hospital Problems: Decompensated hepatic cirrhosis E44.0 Moderate protein calorie malnutrition Summary of hospital course: Bob Dhaliwal is a 54y/o male with hx ofHCV cirrhosis(MELD -Na 23), HFref (EF 20-25%) NYHA IV stage C, aortic stenosis, COPD (on 2L home O2), tobaccoabuse, polysubstance abuse who was admitted for acute decompensated cirrhosis in thesetting of diuretic and dietary non- compliance. On admission he underwent large volume paracentesis x 2 (w/11 L removed) - studies negative for SBP. He was concurrently receiving diuretic therapy for volume overload presumable 2/2 decompensated cirrhosis andHFrEF exacerbation.Hospital course was c/b oliguric ABDIAZIZ. He was placed on a short diuretic holiday and given albumin w/subsequent improvement in renal function and UOP. Patient was transferredto MICU for closer monitoring of intraabdominal pressure due to concerns for abdominal compartment syndrome. Intraabdominal pressures downtrended. Restarted on aggressive diuretic regimen, once renal function improved. Of note patient w/frequent PVC's, NSVT x 1, and mild troponin leak. EF similar to 04/2019, but decreased from 2017. Started on coreg per cardiology recs.Stable for TTF. EGD unremarkable. LHC not performed as patient cannot lay flat. Patient actively diuresing well. CM/SW Interventions/Resources provided: Initial screening and initial discharge plan established, referral to [facility] for lifevest CM/SW Interventions/Resources still needed: transportation Anticipated Discharge Destination: Home If DC to home, who will support patient: Tamera Dhaliwal ex sister in law Anticipated DME needs: None Referrals sent: yes If no, why/when will referral be sent:: Has patient been accepted: yes Revised plan if not accepted: na What is the clinical care happening right now that must be done in the hospital and only the hospital: L cath was done today Please addend note following Length of Stay rounds and complete section below Were any recommendations made during LOS rounds on this patient:no If yes, what new recommendations were made at LOS: Dave Diaz RN - 12/17/2019 1:26 PM CSTCare Management Note 12/17/2019 1:26 PM L cath showed normal coronaries, primary team states patient may go home tonight or tomorrow. I spoke to Jonn with [employer] [place] [address], P: [phone]; ; Cell: [phone]) And he will have patient fitted with a vest this evening. Dave Valverde LEAD MECHANICAL ENGINEER Office not for patient use [email or web address] Carlita Bains PTA - 12/17/2019 10:40 AM CSTPHYSICAL THERAPY NOTE: Attempted to see patient in AM. Patient out of room for procedure. Will return later for PT as time permits. Carlita Mast PTA Pager #: [phone] Supervising PT Caesar Lara Christian Sabillon MD - 12/17/2019 9:23 AM CST CARDIOLOGY PROGRESS NOTE Date of Service: 12/17/2019 09:23 Chief Complaint: Shortness of breath 24 Hour Events: No acute events overnight per nurses report. Subjective: Patient was at technology lab teacher during rounds. Objective: I/O: Intake/Output Summary (Last 24 hours) at 12/17/2019 09 Last data filed at 12/17/2019 0719 Gross per 24 hour Intake 1150 ml Output 2100 ml Net -950 ml Temp: [36.4 C (97.5 F)-37 C (98.6 F)] Pulse: [60-78] Resp: [16-19] BP: (99-136)/(47-72) MAP (mmHg): [57-87] POCT Blood Glucose (manual): [116 mg/dL] Recent Results (from the past 24 hour(s)) POCT GLUCOSE (AUTOMATED) Collection Time: 12/16/19 2:07 PM Result Value Ref Range POCT GLU 201 (H) 70 - 110 mg/dL POCT GLUCOSE (AUTOMATED) Collection Time: 12/16/19 8:37 PM Result Value Ref Range POCT GLU 214 (H) 70 - 110 mg/dL MAGNESIUM Collection Time: 12/17/19 3:16 AM Result Value Ref Range MAGNESIUM 1.9 1.7 - 2.4 mg/dL BASIC METABOLIC PANEL (NA, K, CL, CO2, GLUCOSE, BUN, CREATININE, CA) Collection Time: 12/17/19 3:16 AM Result Value Ref Range NA 133 (L) 135 - 145 mmol/L K 4.3 3.5 - 5.0 mmol/L CL 100 98 - 108 mmol/L CO2 TOTAL 27 23 - 31 mmol/L AGAP 6 2 - 16 BUN 25 (H) 7 - 23 mg/dL GLUCOSE 168 (H) 70 - 110 mg/dL CREATININE 0.86 0.60 - 1.25 mg/dL CALCIUM 8.4 (L) 8.6 - 10.6 mg/dL eGFR Calculation (Non-) 92.0 mL/min/1.73m2 eGFR Calculation () 111.5 mL/min/1.73m2 PROFILE / HEMOGRAM Collection Time: 12/17/19 3:16 AM Result Value Ref Range WBC 4.82 4.20 - 10.70 10*3/L RBC 3.34 (L) 4.26 - 5.52 10*6/L HGB 10.1 (L) 12.2 - 16.4 g/dL HCT 30.6 (L) 38.4 - 49.3 % MCH 30.2 26.1 - 32.7 pg MCV 91.6 81.7 - 95.6 fL MCHC 33.0 31.2 - 35.0 g/dL PLT 130 (L) 150 - 328 10*3/L MPV 12.1 9.8 - 13.0 fL RDW-CV 21.0 (H) 12.1 - 15.4 % RDW-SD 69.3 (H) 38.5 - 51.6 fL NRBC x10^3 <0.01 10*3/L NRBC/100 WBC 0.0 0.0 - 10.0 /100 WBCs IPF % POCT GLUCOSE (AUTOMATED) Collection Time: 12/17/19 7:19 AM Result Value Ref Range POCT GLU 147 (H) 70 - 110 mg/dL No current facility-administered medications on file prior to encounter. Current Outpatient Medications on File Prior to Encounter Medication Sig Dispense Refill digoxin 250 mcg (0.25 mg) tablet Take 250 mcg by mouth daily. furosemide (LASIX) 40 mg tablet Take 40 mg by mouth every morning and evening. sacubitril-valsartan (ENTRESTO) 24-26 mg tablet Take 1 tablet by mouth 2 ( two) times daily. albuterol 90 mcg/actuation inhaler Inhale 2 Puffs every 6 (six) hours as needed for Wheezing or Shortness of Breath. 8.5 g 0 ipratropium 17 mcg/actuation inhaler Inhale 2 Puffs 3 (three) times daily. 12.9 g 0 predniSONE 10 mg tablet Take 3 tablets by mouth daily. 9 tablet 0 temazepam 15 mg capsule Take 1 capsule by mouth at bedtime as needed for Insomnia. 30 capsule 0 Physical exam was not completed due to patient being in technology lab teacher during rounds. Imaging: EKG : RBBB and bifascicular block, no baseline ECG to compare Echocardiography : Result 11/26/2019 A two-dimensional transthoracic echocardiogram with M-mode and Doppler was performed. The study was technically adequate. Compared to prior study, changes are noted. Left ventricular systolic function is severely reduced. Ejection Fraction=20-25% . Diastolic dysfunction. There are regional wall motion abnormalities as specified. Moderate valvular aortic stenosis with mild aortic regurgitation. The left atrium is severely dilated. ASSESSMENT/PLAN Bob Dhaliwal is a 54 year old male with PMH as listed below: Systolic HF (EF 20-25%) Class 4 Stage C COPD HTN Resolved Acute Renal Failure PVC's Pending results of left heart catheterization today, further management will be determined. Rogelio Diaz, MS3 Addendum: I have verified the medical student documentation and/or findings, including the history, physical exam, and medical decision making. Additionally, I have personally performed or re-performed the physical exam and medical decision making activities of this patient's evaluation and management service. S: Patient feeling fine after procedure. O: BP 112/46 | Pulse 64 | Temp 37.1 C (98.8 F) (Oral) | Resp 20 | Ht 1.778 m (5' 10") | Wt 88.5 kg (195 lb) | SpO2 96% | BMI 27.98 kg/m AP: Patient with appropriate diuresis, has lost >60 pounds since admission. New onset HFrEF PVC's Patient with LHC, resulted with normal coronaries, likely cause of HF is substance abuse. - c/w diuresis - keep K>4, Mg>2 Christian Oates MD Dry Room Operator ICENOW ADMINISTRATOR Associated attestation - Justin Feliciano MD - 12/17/2019 6:08 PM CSTI personally examined the patient on 12/17/[address] Oates's note as written. I actively participated in the decision-making process. Ana Morrison MD - 12/17/2019 7:33 AM CST Sherri Team Progress Note Date of Service: 12/17/2019 07:33 Chief Complaint: SOB and abdominal swelling 24-HOUR EVENTS: No acute events overnight CLD PMN for LHC today Increased coreg yesterday SUBJECTIVE: Ready for procedure. Knows he has to lie flat. Denies any SOB at rest. States he has not used his O2in the past 2-3 days. Denies CP, palpitations. PHYSICAL EXAM: Temp: [36.3 C (97.3 F)-37 C (98.6 F)] Pulse: [60-78] Resp: [16-19] BP: (99-136)/(47-72) MAP (mmHg): [57-87] POCT Blood Glucose (manual): [116 mg/dL] Intake/Output Summary (Last 24 hours) at 12/17/2019 0733 Last data filed at 12/17/2019 0719 Gross per 24 hour Intake 1150 ml Output 2100 ml Net -950 ml Tele: Sinus rhythm w/ IVCD and 1st degree block, PVC's 11/min, trending 70's General: alert and oriented; in no distress Lungs: No crackles at bilateral lung bases Cardio: RRR; no murmurs, rubs or gallops Abdomen: distended, soft, tympanic; non TTP; normoactive bowel sounds Extremities: LE still swollen due to venous stasis dermatitis, trace pitting edema. LABS/IMAGING - reviewed, pertinent results as below: Hg 10.1 Na 133 Cr 0.78--> 0.96--> 0.92-->0.86 K 4.3 Mg 1.9, repleting ASSESSMENT/PLAN Bob Dhaliwal is a 54 year old male with PMH as listed above, admitted to the hospital with: Decompensated HFrEF(EF 20-25%), Regional WMA High PVC burden Prolonged QTc Moderate aortic stenosis HTN - LHC today - Lasix IV 40 mg BID; consider transitioning to PO today/tmrw - Try weaning O2 - Coreg 12.5mg BID - ASA 81 mg daily - Holding entresto + digoxin at this time - Cardiology on board - Keep K > 4, Mg > 2 - Avoid QTc prolonging agents - Telemetry Hyperglycemia Elevated fasting blood glucoses. A1C was 6.2 on 11/29/18. Was not on any diabetes therapy prior to admission. 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 Can consider transplant eval if his EF recovers. Continues to have good output, so will hold off on therapeutic paracentesis, especially given previous ABDIAZIZ. - Lasix + Spironolactone daily (goal of net negative 1-2 L daily) - Lactulose 30 QID (titrate to 3-4 BM's daily) R sided pleural effusion- likely hepatic hydrothorax Reported COPD - No PFTs on file Tobacco use/polysubstance use Chronic Hypoxic respiratory failure Stable pleural effusion. 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 On admission heunderwent large volume paracentesis x 2 (w/11 L removed) - studies negative for SBP. He was concurrently receiving diuretic therapy for volume overload presumable 2/2 decompensated cirrhosis and HFrEF exacerbation. Hospital course was c/b oliguric ABDIAZIZ. He was placed on a short diuretic holiday and given albumin w/ subsequent improvement in renal function and UOP. Patient was transferred to MICU for closer monitoring of intraabdominal pressure due to concerns for abdominal compartment syndrome. Intraabdominal pressures downtrended. Restarted on aggressive diuretic regimen, once renal function improved. Of note patient w/ frequent PVC's, NSVT x 1, and mild troponin leak. EF similar to 04/2019, but decreased from 2017. Started on coreg per cardiology recs. Stable for TTF. EGD unremarkable. LHC not performed as patient cannot lay flat. Patient actively diuresing well. Chronic/Resolved Conditions: HTN Oliguric ABDIAZIZ, resolved Hyponatremia, resolved Hypochloremia, resolved Hepatic Encephalopathy, resolved ?Abdominal Compartment syndrome; ruled out Hyperkalemia, resolved Discharge Planning: - need outpatient f/u for untreated HCV - patient need to follow up with his network project manager within a week or schedule outpatient within 10 days after d/c. - Need BMP one week after discharge and continue same other plans and medications. - Life Vest prior to discharge Scheduled meds: carvediloL 12.5 mg BID MEALS furosemide 40 mg Q12H magnesium oxide 800 mg BID insulin regular human AC+HS lactulose 30 mL BID lanolin djskhpn-xy-k.pet-ceres DAILY thiamine 100 mg DAILY SERTraline 25 mg QHS ramelteon 8 mg QHS foLIC acid 1 mg DAILY ipratropium-albuterol 3 mL Q4H spironolactone 200 mg DAILY heparin (porcine) 5,000 units subcutaneous injection 5,000 Units Q12H nicotine 1 Patch Q24H Miconazole Nitrate BID triamcinolone acetonide DAILY aspirin 81 mg DAILY IV meds: PRN meds: hydrOXYzine 10 mg Q6HPRN dextrose 10% (D10W) 250 mL PRN - SEE INSTRUCTIONS acetaminophen-codeine 1 tablet Q4HPRN HYDROcodone-acetaminophen 1 tablet Q6HPRN [place] ADMINISTRATOR Associated attestation - Dianna Barrett MD - 12/17/2019 3:55 PM CSTDiscussed case with resident, Dr. Morrison. Patient is s/p LHC today- normal coronaries. Plan to discuss with hepatology/transplant service. Agree with resident's note. Dianna Barrett MD, MPH [facility] Internal Medicine Christian Oates MD - 12/16/2019 8:51 AM CST Cardiology progress Note 12/16/2019 08:51 Bob Dhaliwal is a 54 year old male with history of HCV cirrhosis, Acute on chronic systolic HF ( EF 20-25%) NYHA class IV stage C, moderate aortic stenosis, COPD (on 2L home O2), HTN, tobacco use, and polysubstance abuse admitted from OSH for decompensated HCV cirrhosis. Troponin elevated 0.099. Telemetry notes frequent PVCs Patient denies chest pain, palpitation, dizziness syncope. Patient states feeling better since admission, body swelling has improved. Patient sates that he can not tolerate decubitus position due to anxiety, he does not feel shortnessof breath when he does it. ROS: 12 points ROS were obtained and negative except mentioned in HPI Past Medical History: Diagnosis Date CHF (congestive heart failure) COPD (chronic obstructive pulmonary disease) DM (diabetes mellitus) HTN (hypertension) Past Surgical History: Procedure Laterality Date ESOPHAGOGASTRODUODENOSCOPY N/A 12/04/2019 Surgeon: Chivo Vargas MD; Location: Endoscopy ([facility]) OR Location Family History Problem Relation Age of Onset Other - see comments Mother Epilepsy No Significant Medical Problems Father Social History Socioeconomic History Marital status: Single Spouse name: Not on file Number of children: Not on file Years of education: Not on file Highest education level: Not on file Occupational History Not on file Social Needs Financial resource strain: Not on file Food insecurity: Worry: Not on file Inability: Not on file Transportation needs: Medical: Not on file Non-medical: Not on file Tobacco Use Smoking status: Current Some Day Smoker Types: Cigarettes Smokeless tobacco: Never Used Tobacco comment: 2 packs a week Substance and Sexual Activity Alcohol use: No Drug use: Yes Types: Marijuana, Methamphetamines, Benzodiazepines Sexual activity: Not on file Lifestyle Physical activity: Days per week: Not on file Minutes per session: Not on file Stress: Not on file Relationships Social connections: Talks on phone: Not on file Gets together: Not on file Attends confucianist service: Not on file Active member of club or organization: Not on file Attends meetings of clubs or organizations: Not on file Relationship status: Not on file Intimate partner violence: Fear of current or ex partner: Not on file Emotionally abused: Not on file Physically abused: Not on file Forced sexual activity: Not on file Other Topics Concern Not on file Social History Narrative Not on file No Known Allergies Prior to Admission medications Medication Sig Start Date End Date Taking? Authorizing Provider digoxin 250 mcg (0.25 mg) tablet Take 250 mcg by mouth daily. Yes Doctor Unassigned, [place] furosemide (LASIX) 40 mg tablet Take 40 mg by mouth every morning and evening. Yes Doctor Unassigned, [place] sacubitril-valsartan (ENTRESTO) 24-26 mg tablet Take 1 tablet by mouth 2 (two) times daily. Yes Doctor Unassigned, [place] albuterol 90 mcg/actuation inhaler Inhale 2 Puffs every 6 (six) hours as needed for Wheezing or Shortness of Breath. 06/15/19 Moustapha Ferrer MD ipratropium 17 mcg/actuation inhaler Inhale 2 Puffs 3 (three) times daily. Moustapha Ferrer MD predniSONE 10 mg tablet Take 3 tablets by mouth daily. 06/15/19 Christian Mejia MD temazepam 15 mg capsule Take 1 capsule by mouth at bedtime as needed for Insomnia. 10/19/17 Saul Woodall MBBS Current Facility-Administered Medications: carvediloL (COREG) tablet 12.5 mg, 12.5 mg, Oral, BID MEALS, Ana Morrison MD magnesium sulfate in water 2 gram/50 mL (4 %) 2,000 mg piggyback, 2,000 mg , IV Infusion, ONCE, Ana Morrison MD furosemide (LASIX) injection 40 mg, 40 mg, Slow IV Push, Q12H, Ana Morrison MD, 40 mgat 12/16/19 0831 magnesium oxide (MAG-OX 400) tablet 800 mg, 800 mg, Oral, BID, Ana Morrison MD, 800 mg at 12/16/19 0830 Sliding Scale Insulin-Regular + Fsbg Testing, , Subcutaneous, AC+HS, Ana Morrison MD,Stopped at 12/16/19 08 lactulose (CEPHULAC) solution 30 mL, 30 mL, Oral, BID, Ana Morrison MD, 30 mL at 12/16/19 0831 lanolin ctiuhzk-pj-e.pet-ceres (EUCERIN) cream, , Topical, DAILY, Ana Morrison MD thiamine (VITAMIN B1) tablet 100 mg, 100 mg, Oral, DAILY, Julio Urrutia MD, 100 mg at 12/16/19 0830 SERTraline (ZOLOFT) tablet 25 mg, 25 mg, Oral, QHS, Moustapha Ferrer MD, 25 mg at 12/15/192054 hydrOXYzine (ATARAX) tablet 10 mg, 10 mg, Oral, Q6HPRN, Maya Alatorre MD, 10 mg at ramelteon (ROZEREM) tablet 8 mg, 8 mg, Oral, QHS, Maya Alatorre MD, 8 mg at 12/15/192052 foLIC acid (FOLATE) tablet 1 mg, 1 mg, Oral, DAILY, Leda Alvarado DO, 1 mg at 12/16/19 0830 ipratropium-albuterol (DUONEB) 0.5 mg-3 mg(2.5 mg base)/3 mL nebulizer solution 3 mL, 3 mL, Inhalation, Q4H, Leda Alvarado DO, 3 mL at 12/16/19 0738 spironolactone (ALDACTONE) tablet 200 mg, 200 mg, Oral, DAILY, Leo Jones MD, 200 mg at 12/16/19 0830 dextrose 10% (D10W) bolus infusion 250 mL, 250 mL, IV Infusion, PRN - SEE INSTRUCTIONS, Junior Fofana DO heparin (porcine) injection 5,000 Units, 5,000 Units, Subcutaneous, Q12H, Junior Fofana DO, 5,000 Units at 12/15/19 0909 nicotine (NICODERM) 21 mg/24 hr patch 1 Patch, 1 Patch, Topical, Q24H, Maya Alatorre MD, 1 Patch at 12/16/19 0526 Miconazole Nitrate (DERMAFUNGAL) 2 % ointment, , Topical, BID, Kandis Parada DO triamcinolone acetonide (TRIDERM) 0.1 % cream, , Topical, DAILY, Kandis Parada DO aspirin chewable tablet 81 mg, 81 mg, Oral, DAILY, Moustapha Ferrer MD, 81 mg at 12/16/19 0830 acetaminophen-codeine (TYLENOL #3) 300-30 mg tablet 1 tablet, 1 tablet, Oral, Q4HPRN, Julio Womack DO, 1 tablet at 12/15/19 1657 HYDROcodone-acetaminophen (NORCO 5) 5-325 mg tablet 1 tablet, 1 tablet, Oral, Q6HPRN, Vu Julio, , 1 tablet at 12/16/19 0045 Physical Examination: Temp: [36.3 C (97.3 F)-36.9 C (98.4 F)] Pulse: [62-78] Resp: [16-18] BP: (101-119)/(49-53) MAP (mmHg): [62-66] Intake/Output Summary (Last 24 hours) at 12/16/2019 0851 Last data filed at 12/16/2019 0400 Gross per 24 hour Intake 380 ml Output 4000 ml Net -3620 ml General: alert and oriented x2, no apparent distress HEENT: pupils equal, round, reactive to light Neck: full range of motion Lungs: no crackles, right lung reduced breath sounds and positive egophony Cardio: RRR, S1, S2 normal; no murmurs appreciated Abdomen: soft; non-tender; distended; normoactive bowel sounds : not examined Rectal: not examined Extremities: 3+edema with chronic venous stasis changes Skin: no rashes Neuro: cranial nerves II through XII grossly intact Labs/Imaging/Pathology - reviewed EKG : RBBB and bifascicular block, no baseline ECG to compare Echocardiography : Left Ventricle The left ventrical is severely dilated. LV mass index 183 g/m2 and RWT 0.32 consistent wtih severe eccentric LVH. Left ventricular systolic function is severely reduced. Ejection Fraction=20-25%. Diastolic dysfunction. Severe Inferior , anteroseptal and inferoseptal wall hypokinesis. There are regional wall motion abnormalities as specified. Right Ventricle The right ventricle is normal in size and function. There is normal right ventricular wall thickness. Atria The left atrium is severely dilated. Right atrial size is normal. Mitral Valve The mitral valve is normal. There is mild mitral regurgitation. Tricuspid Valve The tricuspid valve is normal. Estimated RA pressure is 0-5 mmHg. Insufficient Tricuspid regurgitation jet to estimate RVSP. Aortic Valve The aortic valve is mildly thickened and calcified. The mean aortic valve gradient measures 20.9 mmHg. The peak to peak aortic valve gradient measures 38.3 mmHg. Measured by the continuity equation, the aortic valve area is 1.4cm2. Moderate valvular aortic stenosis. Mild aortic regurgitation. Pulmonic Valve The pulmonic valve is not well visualized. Page 1 of 2 11/27/2019 Great Vessels The aortic root is normal size. Pericardium/Pleural There is no pericardial effusion. The pericardium appears normal. Summary Statements A two-dimensional transthoracic echocardiogram with M-mode and Doppler was performed. The study was technically adequate. Compared to prior study, changes are noted. Left ventricular systolic function is severely reduced. Ejection Fraction=20-25% . Diastolic dysfunction. There are regional wall motion abnormalities as specified. Moderate valvular aortic stenosis with mild aortic regurgitation. The left atrium is severely dilated. Cardiac Cath : None available Assessment/Plan: Bob Dhaliwal is a 54 year old male admitted with: 1. Decompensated cirrhosis with large ascites, s/p 11 L paracentesis 2. Acute renal failure ( intravascular depleted with third spacing due to low albumin) mixed of HRS and pre-renal - resolved 3. Acute on chronic HFrEF 20-25% NYHA class Iv stage C 4. PVC's frequent 5. Moderate to large R pleural effusion 6. Medical noncompliance, hx of polysubstance abuse On 12/05/2019 , he went to technology lab teacher and was not able to lay flat therefore procedure was cancelled. Patient has lost 32 kg (aprox 30 liters) of weight, we think that he has been approprietly diuresed.Patient cannot lie flat due to anxiety. GFR>70, that us appropriate for LHC. Recommendations: Continue with gentle diuresis. Keep K>4, Mg>2 NPOpMN for LHC tomorrow. Orders and request for procedure are in. Patient was seen and examined with Faculty Dr Jodie Oates MD Dry Room Operator [place] ADMINISTRATOR Associated attestation - Justin Feliciano MD - 12/16/2019 11:57 AM CSTI personally examined the patient on 12/16/[address] Oates's note as written. I actively participated in the decision-making process. Ana Morrison MD - 12/16/2019 7:59 AM CST [facility] Team Progress Note Date of Service: 12/16/2019 07:59 Chief Complaint: SOB and abdominal swelling 24-HOUR EVENTS: No acute events overnight Decreased lasix yesterday SUBJECTIVE: Feels well and is happy that cardiology is posting him for LHC tomorrow. Denies SOB at rest and has been walking w/o SAWYER. Still able to lie flat. Has been changing position frequently, so buttock is less sore. Was drinking coke this morning. PHYSICAL EXAM: Temp: [36.4 C (97.5 F)-36.9 C (98.4 F)] Pulse: [62-78] Resp: [16-18] BP: (101-119)/(49-53) MAP (mmHg): [62-66] Intake/Output Summary (Last 24 hours) at 12/16/2019 0759 Last data filed at 12/16/2019 0400 Gross per 24 hour Intake 380 ml Output 4000 ml Net -3620 ml Tele: 3 beat and 4 beat run NSVT overnight, PAC's and trigeminal PVCs intermittently, otherwise sinus rhythm trending 60's General: alert and oriented; in no distress Lungs: No crackles at bilateral lung bases Cardio: RRR; no murmurs, rubs or gallops Abdomen: distended, soft, tympanic; non TTP; normoactive bowel sounds Extremities: +1 LE pitting edema but much improved. LE still swollen due to venous stasis dermatitis. Has some bleeding excoriations on left lower extremity. Skin: sacral area is less erythematous today LABS/IMAGING - reviewed, pertinent results as below: Na 135 Cr 0.78--> 0.96--> 0.92 K 4.6 Mg 1.9, repleting ASSESSMENT/PLAN Bob Dhaliwal is a 54 year old male with PMH as listed above, admitted to the hospital with: Decompensated HFrEF(EF 20-25%), Regional WMA High PVC burden Prolonged QTc Moderate aortic stenosis HTN [facility] tmrw. -NPO PMN for [facility] tmrw - Lasix IV 40 mg BID - Increase coreg to 12.5mg BID - ASA 81 mg daily - Holding entresto + digoxin at this time - Cardiology on board - Keep K > 4, Mg > 2 - Avoid QTc prolonging agents - Telemetry Hyperglycemia Elevated fasting blood glucoses. A1C was 6.2 on 11/29/18. Was not on any diabetes therapy prior to admission. 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 Can consider transplant eval if his EF recovers. Continues to have good output, so will hold off on therapeutic paracentesis, especially given previous ABDIAZIZ. - Lasix + Spironolactone daily (goal of net negative 1-2 L daily) - Lactulose 30 QID (titrate to 3-4 BM's daily) R sided pleural effusion- likely hepatic hydrothorax Reported COPD - No PFTs on file Tobacco use/polysubstance use Chronic Hypoxic respiratory failure Stable pleural effusion. - c/w diuresis - c/w duonebs + IS - nicotine patch Insomnia Anxiety/Agitation Left buttock pain - ramelteon QHS - c/w thiamine + folate - c/w zoloft QHS - Reposition Q4H PAIN: Improved Tylenol and [place] Prophylaxis: DVT- Contraindicated: Thrombocytopenia Stress Ulcer: no indication for prophylaxis Code Status: addressed: full code Ana Morrison MD Internal Medicine, PGY1 [facility] Team Pager#: [phone] END OF DAILY PROGRESS NOTE Hospital Course Bob Dhaliwal is a 54 y/o male with 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 On admission heunderwent large volume paracentesis x 2 (w/11 L removed) - studies negative for SBP. He was concurrently receiving diuretic therapy for volume overload presumable 2/2 decompensated cirrhosis and HFrEF exacerbation. Hospital course was c/b oliguric ABDIAZIZ. He was placed on a short diuretic holiday and given albumin w/ subsequent improvement in renal function and UOP. Patient was transferred to MICU for closer monitoring of intraabdominal pressure due to concerns for abdominal compartment syndrome. Intraabdominal pressures downtrended. Restarted on aggressive diuretic regimen, once renal function improved. Of note patient w/ frequent PVC's, NSVT x 1, and mild troponin leak. EF similar to 04/2019, but decreased from 2017. Started on coreg per cardiology recs. Stable for TTF. EGD unremarkable. LHC not performed as patient cannot lay flat. Patient actively diuresing well. Chronic/Resolved Conditions: HTN Oliguric ABDIAZIZ, resolved Hyponatremia, resolved Hypochloremia, resolved Hepatic Encephalopathy, resolved ?Abdominal Compartment syndrome; ruled out Hyperkalemia, resolved Discharge Planning: - need outpatient f/u for untreated HCV - patient need to follow up with his network project manager within a week or schedule outpatient within 10 days after d/c. - Need BMP one week after discharge and continue same other plans and medications. - Life Vest prior to discharge Scheduled meds: furosemide 40 mg Q12H magnesium oxide 800 mg BID insulin regular human AC+HS lactulose 30 mL BID lanolin iqvaeeo-ff-v.pet-ceres DAILY thiamine 100 mg DAILY SERTraline 25 mg QHS ramelteon 8 mg QHS carvediloL 6.25 mg BID MEALS foLIC acid 1 mg DAILY ipratropium-albuterol 3 mL Q4H spironolactone 200 mg DAILY heparin (porcine) 5,000 units subcutaneous injection 5,000 Units Q12H nicotine 1 Patch Q24H Miconazole Nitrate BID triamcinolone acetonide DAILY aspirin 81 mg DAILY IV meds: PRN meds: hydrOXYzine 10 mg Q6HPRN dextrose 10% (D10W) 250 mL PRN - SEE INSTRUCTIONS acetaminophen-codeine 1 tablet Q4HPRN HYDROcodone-acetaminophen 1 tablet Q6HPRN [place] ADMINISTRATOR Associated attestation - Dianna Barrett MD - 12/16/2019 11:39 PM CSTI discussed this patient in detail with resident physician Dr. Morrison, including the patients symptoms, exam findings, assessment and plan. I independently performed relevant portions of history and exam and jointly participated in the decision making process on 12/16/2019. Please see resident s Progress Note for details. Dianna Barrett MD, MPH [facility] Internal Medicine Ana Morrison MD - 12/15/2019 7:12 AM CST [facility] Team Progress Note Date of Service: 12/15/2019 07:14 Chief Complaint: SOB and abdominal swelling 24-HOUR EVENTS: No acute events overnight SUBJECTIVE: Patient feels well. Denies SOB. Has been walking around and is still able to lie flat if needed. States that left buttock is sore from sitting in chair. Encouraged patient to change positions every 2-4hours and use pillows to alleviate pressure from sides. PHYSICAL EXAM: Temp: [36.3 C (97.3 F)-36.7 C (98 F)] Pulse: [57-79] Resp: [16-18] BP: (103-122)/(45-65) MAP (mmHg): [63] Intake/Output Summary (Last 24 hours) at 12/15/2019 0714 Last data filed at 12/15/2019 0000 Gross per 24 hour Intake Output 3300 ml Net -3300 ml General: alert and oriented; in no distress Lungs: No crackles at bilateral lung bases Cardio: RRR; no murmurs, rubs or gallops Abdomen: distended, soft, tympanic; non TTP; normoactive bowel sounds Extremities: +1 LE pitting edema but much improved. LE still swollen due to venous stasis dermatitis. Has some bleeding excoriations on left lower extremity. Skin: Small furuncle on left buttock, LABS/IMAGING - reviewed, pertinent results as below: WBC 5.13 Hg 10.3 Plt 131 Na 135 Cr 0.78--> 0.96 K 4.0 Mg 1.5 ASSESSMENT/PLAN Bob Dhaliwal is a 54 year old male with PMH as listed above, admitted to the hospital with: Decompensated HFrEF(EF 20-25%), Regional WMA High PVC burden Prolonged QTc Moderate aortic stenosis HTN Cardiology will reassess and may post him for cath early next week if volume overload and ABDIAZIZ improves enough. Will decrease lasix today as Cr increased slightly. - Lasix IV 40 mg BID - Coreg 6.25 mg bid; consider uptitrating as tolerated - ASA 81 mg daily - Holding entresto + digoxin at this time - Cardiology on board - Keep K > 4, Mg > 2 - Avoid QTc prolonging agents - Telemetry Hyperglycemia Elevated fasting blood glucoses. A1C was 6.2 on 11/29/18. Was not on any diabetes therapy prior to admission. -Change to diabetic diet -Start SSI Decompensated HCV cirrhosis(MELD-Na 23) 2/2 dietary/meds non-compliance Hepatic hydrothorax Untreated HCV Hyperbilirubinemia (indirect), Elevated aminotransferases (AST 2x ALT), Hypoalbuminemia Liver Transplant candidacy depends on his cardiac function. Can consider transplant eval if his EF recovers. Continues to have good output, so will hold off on therapeutic paracentesis, especially given previous ABDIAZIZ. - Lasix + Spironolactone daily (goal of net negative 1-2 L daily) - Lactulose 30 QID (titrate to 3-4 BM's daily) R sided pleural effusion- likely hepatic hydrothorax Reported COPD - No PFTs on file Tobacco use/polysubstance use Chronic Hypoxic respiratory failure Stable pleural effusion. - c/w diuresis - c/w duonebs + IS - nicotine patch Insomnia Anxiety/Agitation Left buttock pain - ramelteon QHS - c/w thiamine + folate - c/w zoloft QHS - Reposition Q4H PAIN: Improved Tylenol and [place] Prophylaxis: DVT- Contraindicated: Thrombocytopenia Stress Ulcer: no indication for prophylaxis Code Status: addressed: full code Ana Morrison MD Internal Medicine, PGY1 [facility] Pager#: [phone] END OF DAILY PROGRESS NOTE Hospital Course Bob Dhaliwal is a 54 y/o male with 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 On admission heunderwent large volume paracentesis x 2 (w/11 L removed) - studies negative for SBP. He was concurrently receiving diuretic therapy for volume overload presumable 2/2 decompensated cirrhosis and HFrEF exacerbation. Hospital course was c/b oliguric ABDIAZIZ. He was placed on a short diuretic holiday and given albumin w/ subsequent improvement in renal function and UOP. Patient was transferred to MICU for closer monitoring of intraabdominal pressure due to concerns for abdominal compartment syndrome. Intraabdominal pressures downtrended. Restarted on aggressive diuretic regimen, once renal function improved. Of note patient w/ frequent PVC's, NSVT x 1, and mild troponin leak. EF similar to 04/2019, but decreased from 2017. Started on coreg per cardiology recs. Stable for TTF. EGD unremarkable. LHC not performed as patient cannot lay flat. Patient actively diuresing well. Chronic/Resolved Conditions: HTN Oliguric ABDIAZIZ, resolved Hyponatremia, resolved Hypochloremia, resolved Hepatic Encephalopathy, resolved ?Abdominal Compartment syndrome; ruled out Hyperkalemia, resolved Discharge Planning: - need outpatient f/u for untreated HCV - patient need to follow up with his network project manager within a week or schedule outpatient within 10 days after d/c. - Need BMP one week after discharge and continue same other plans and medications. - Life Vest prior to discharge Scheduled meds: lactulose 30 mL BID lanolin wizvzff-df-z.pet-ceres DAILY magnesium oxide 800 mg DAILY thiamine 100 mg DAILY furosemide 60 mg Q12H SERTraline 25 mg QHS ramelteon 8 mg QHS carvediloL 6.25 mg BID MEALS foLIC acid 1 mg DAILY ipratropium-albuterol 3 mL Q4H spironolactone 200 mg DAILY heparin (porcine) 5,000 units subcutaneous injection 5,000 Units Q12H nicotine 1 Patch Q24H Miconazole Nitrate BID triamcinolone acetonide DAILY aspirin 81 mg DAILY IV meds: PRN meds: hydrOXYzine 10 mg Q6HPRN dextrose 10% (D10W) 250 mL PRN - SEE INSTRUCTIONS acetaminophen-codeine 1 tablet Q4HPRN HYDROcodone-acetaminophen 1 tablet Q6HPRN [place]EN[place] ADMINISTRATOR Associated attestation - Dianna Barrett MD - 12/15/2019 3:39 PM CSTI discussed this patient in detail with resident physician Dr. Morrison, including the patients symptoms, exam findings, assessment and plan. I independently performed relevant portions of history and exam and jointly participated in the decision making process on 12/15/2019. Please see resident s Progress Note for details. Dianna Barrett MD, MPH [facility] Internal Medicine Osorio Shields MD - 12/14/2019 8:29 AM CST PGY- 1 Remmers Team Progress Note Date of Service: 12/14/2019 08:29 Chief Complaint: SOB and abdominal swelling 24-HOUR EVENTS: No acute events overnight SUBJECTIVE: Patient compliant with restrictions, able to lie flat. Still making a good amount of urine. UOP 5.6Lover last 24Hr. PHYSICAL EXAM: Temp: [36.6 C (97.8 F)-36.8 C (98.3 F)] Pulse: [61-77] Resp: [16-18] BP: (109-116)/(49-58) MAP (mmHg): [64] Intake/Output Summary (Last 24 hours) at 12/14/2019 0829 Last data filed at 12/14/2019 0600 Gross per 24 hour Intake Output 5600 ml Net -5600 ml General: alert and oriented; in no distress Lungs: No crackles at bilateral lung bases Cardio: RRR; no murmurs, rubs or gallops Abdomen: distended, soft, tympanic; non TTP; normoactive bowel sounds Extremities: +1 LE pitting edema but much improved. LE still swollen due to venous stasis dermatitis, unchanged. LABS/IMAGING - reviewed, pertinent results as below: Recent Labs 12/03/1944512/05/1945012/09/19 0401 12/11/19 0412 12/13/19 0507 WBC 4.13* 4.97 4.57 4.60 5.09 HGB 10.2* 9.5* 10.1* 9.8* 9.8* HCT 30.0* 28.5* 30.0* 29.2* 29.6* MCV 87.5 89.3 89.0 90.4 91.1 PLT 82* 70* 100* 111* 113* Recent Labs 12/10/19 0446 12/11/19 0412 12/12/19 0528 12/13/19 0944 12/14/19 0340 NA 133* 136 136 135 133* K 4.2 4.0 3.6 4.4 4.0 CA 8.1* 8.1* 8.0* 8.4* 8.2* CL 96* 99 96* 98 97* BUN 18 18 22 19 21 CREAT 0.82 0.83 1.07 0.78 0.78 GLU 178* 146* 139* 193* 203* TCO2 28 29 30 31 28 MG 1.9 1.8 1.8 1.8 1.9 Recent Labs 12/02/19 0456 12/03/19 0446 12/04/19 0518 12/05/19 0451 12/06/19 0433 ALB 2.9* 3.2* 3.1* 2.9* 2.7* TPRO 5.7* 6.4 6.3 5.9* 5.8* BILIT 1.2* 1.6* 1.1 1.3* 1.3* BILIUNCON 0.7 0.8 0.7 0.8 0.8 BILICONJ 0.0 0.0 0.0 0.0 0.0 ALT 50 62* 63* 64* 62* AST 98* 148* 127* 119* 110* ALKPHOS 75 56 63 59 57 Recent Labs 06/13/19 1652 11/27/19 1214 11/30/19 0542 12/01/19 0328 12/02/19 0456 12/03/19 0446 PTINR -- < > 1.5 1.6 1.8 1.6 1.5 PTPAT -- < > 16.3* 17.6* 19.9* 17.7* 16.7* APTTPAT 32 -- -- -- -- -- -- < >=values in this interval not displayed. ASSESSMENT/PLAN Bob Dhaliwal is a 54 year old male with PMH as listed above, admitted to the hospital with: Decompensated HFrEF(EF 20-25%), Regional WMA High PVC burden Prolonged QTc Moderate aortic stenosis HTN Cardiology will reassess and may post him for cath early next week if volume overload and ABDIAZIZ improves enough. 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 Can consider transplant eval if his EF recovers. Continues to have good output, so will hold off on therapeutic paracentesis, especially given previous ABDIAZIZ. - Lasix + Spironolactone daily (goal of net negative 1-2 L daily) - Lactulose 30 QID (titrate to 3-4 BM's daily) R sided pleural effusion- likely hepatic hydrothorax Reported COPD - No PFTs on file Tobacco use/polysubstance use Chronic Hypoxic respiratory failure Stable pleural effusion. - c/w diuresis - c/w duonebs + pulmonary toilet + IS - nicotine patch Insomnia Anxiety/Agitation - ramelteon QHS - c/w thiamine + folate - c/w zoloft QHS PAIN: Improved Tylenol and [place] Prophylaxis: DVT- Contraindicated: Thrombocytopenia Stress Ulcer: no indication for prophylaxis Code Status: addressed: full code Disposition Anticipated Discharge Date : TBD Barriers to Discharge: IV diuresis Osorio Shields MD PGY-1 Neurology Pager number [phone] END OF DAILY PROGRESS NOTE Hospital Course Bob Dhaliwal is a 54 y/o male with 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 On admission heunderwent large volume paracentesis x 2 (w/11 L removed) - studies negative for SBP. He was concurrently receiving diuretic therapy for volume overload presumable 2/2 decompensated cirrhosis and HFrEF exacerbation. Hospital course was c/b oliguric ABDIAZIZ. He was placed on a short diuretic holiday and given albumin w/ subsequent improvement in renal function and UOP. Patient was transferred to MICU for closer monitoring of intraabdominal pressure due to concerns for abdominal compartment syndrome. Intraabdominal pressures downtrended. Restarted on aggressive diuretic regimen, once renal function improved. Of note patient w/ frequent PVC's, NSVT x 1, and mild troponin leak. EF similar to 04/2019, but decreased from 2017. Started on coreg per cardiology recs. Stable for TTF. EGD unremarkable. LHC not performed as patient cannot lay flat. Patient actively diuresing well. Chronic/Resolved Conditions: HTN Oliguric ABDIAZIZ, resolved Hyponatremia, resolved Hypochloremia, resolved Hepatic Encephalopathy, resolved ?Abdominal Compartment syndrome; ruled out Hyperkalemia, resolved Discharge Planning: - need outpatient f/u for untreated HCV - patient need to follow up with his network project manager within a week or schedule outpatient within 10 days after d/c. - Need BMP one week after discharge and continue same other plans and medications. - Life Vest prior to discharge Scheduled meds: lactulose 30 mL BID lanolin dydsfgx-if-d.pet-ceres DAILY magnesium oxide 800 mg DAILY thiamine 100 mg DAILY furosemide 60 mg Q12H SERTraline 25 mg QHS ramelteon 8 mg QHS carvediloL 6.25 mg BID MEALS foLIC acid 1 mg DAILY ipratropium-albuterol 3 mL Q4H spironolactone 200 mg DAILY heparin (porcine) 5,000 units subcutaneous injection 5,000 Units Q12H nicotine 1 Patch Q24H Miconazole Nitrate BID triamcinolone acetonide DAILY aspirin 81 mg DAILY IV meds: PRN meds: oxymetazoline 2 [place] BIDPRN hydrOXYzine 10 mg Q6HPRN dextrose 10% (D10W) 250 mL PRN - SEE INSTRUCTIONS acetaminophen-codeine 1 tablet Q4HPRN HYDROcodone-acetaminophen 1 tablet Q6HPRN [place] ADMINISTRATOR Associated attestation - Dianna Barrett MD - 12/15/2019 3:38 PM CSTI discussed this patient in detail with resident physician Dr. Shields, including the patients symptoms, exam findings, assessment and plan. I independently performed relevant portions of history and exam and jointly participated in the decision making process on 12/14/2019. Please see residents Progress Note for details. Dianna Barrett MD, MPH [facility] Internal Medicine Jose Becerra, - 12/13/2019 12:13 PM CST Cardiology progress Note 12/13/2019 12:13 Bob Dhaliwal is a 54 year old male with history of HCV cirrhosis, Acute on chronic systolic HF ( EF 20-25%) NYHA class IV stage C, moderate aortic stenosis, COPD (on 2L home O2), HTN, tobacco use, and polysubstance abuse admitted from OSH for decompensated HCV cirrhosis. Troponin elevated 0.099. Telemetry notes frequent PVCs Patient denies chest pain, palpitation, dizziness syncope. Patient states feeling better since admission, body swelling has improved. ROS: 12 points ROS were obtained and negative except mentioned in HPI Past Medical History: Diagnosis Date CHF (congestive heart failure) COPD (chronic obstructive pulmonary disease) DM (diabetes mellitus) HTN (hypertension) Past Surgical History: Procedure Laterality Date ESOPHAGOGASTRODUODENOSCOPY N/A 12/04/2019 Surgeon: Chivo Vargas MD; Location: Endoscopy ([facility]) OR Location Family History Problem Relation Age of Onset Other - see comments Mother Epilepsy No Significant Medical Problems Father Social History Socioeconomic History Marital status: Single Spouse name: Not on file Number of children: Not on file Years of education: Not on file Highest education level: Not on file Occupational History Not on file Social Needs Financial resource strain: Not on file Food insecurity: Worry: Not on file Inability: Not on file Transportation needs: Medical: Not on file Non-medical: Not on file Tobacco Use Smoking status: Current Some Day Smoker Types: Cigarettes Smokeless tobacco: Never Used Tobacco comment: 2 packs a week Substance and Sexual Activity Alcohol use: No Drug use: Yes Types: Marijuana, Methamphetamines, Benzodiazepines Sexual activity: Not on file Lifestyle Physical activity: Days per week: Not on file Minutes per session: Not on file Stress: Not on file Relationships Social connections: Talks on phone: Not on file Gets together: Not on file Attends confucianist service: Not on file Active member of club or organization: Not on file Attends meetings of clubs or organizations: Not on file Relationship status: Not on file Intimate partner violence: Fear of current or ex partner: Not on file Emotionally abused: Not on file Physically abused: Not on file Forced sexual activity: Not on file Other Topics Concern Not on file Social History Narrative Not on file No Known Allergies Prior to Admission medications Medication Sig Start Date End Date Taking? Authorizing Provider digoxin 250 mcg (0.25 mg) tablet Take 250 mcg by mouth daily. Yes Doctor Unassigned, [place] furosemide (LASIX) 40 mg tablet Take 40 mg by mouth every morning and evening. Yes Doctor Unassigned, [place] sacubitril-valsartan (ENTRESTO) 24-26 mg tablet Take 1 tablet by mouth 2 (two) times daily. Yes Doctor Unassigned, [place] albuterol 90 mcg/actuation inhaler Inhale 2 Puffs every 6 (six) hours as needed for Wheezing or Shortness of Breath. 06/15/19 Moustapha Ferrer MD ipratropium 17 mcg/actuation inhaler Inhale 2 Puffs 3 (three) times daily. Moustapha Ferrer MD predniSONE 10 mg tablet Take 3 tablets by mouth daily. 06/15/19 Christian Mejia MD temazepam 15 mg capsule Take 1 capsule by mouth at bedtime as needed for Insomnia. 10/19/17 Saul Woodall MBBS Current Facility-Administered Medications: magnesium sulfate in water 4 gram/50 mL (8 %) IV Piggyback 4 g, 4 g, IV Piggyback, ONCE, Ana Morrison MD oxymetazoline (OXYMETAZOLINE HCL) 0.05 % nasal spray 2 [place], 2 [place], Nasal, BIDPRN, Ana Morrison MD lactulose (CEPHULAC) solution 30 mL, 30 mL, Oral, BID, Ana Morrison MD, 30 mL at 12/13/19 0810 lanolin omvhjnm-fq-i.pet-ceres (EUCERIN) cream, , Topical, DAILY, Ana Morrison MD magnesium oxide (MAG-OX 400) tablet 800 mg, 800 mg, Oral, DAILY, Ana Morrison MD, 800mg at 12/13/19 0809 thiamine (VITAMIN B1) tablet 100 mg, 100 mg, Oral, DAILY, Julio Urrutia MD, 100 mg at 12/13/19 0809 furosemide (LASIX) injection 60 mg, 60 mg, Slow IV Push, Q12H, Moustapha Ferrer MD, 60 mg at 12/13/19 0809 SERTraline (ZOLOFT) tablet 25 mg, 25 mg, Oral, QHS, Moustapha Ferrer MD, 25 mg at 12/12/192136 hydrOXYzine (ATARAX) tablet 10 mg, 10 mg, Oral, Q6HPRN, Maya Alatorre MD, 10 mg at 12/12/201704 ramelteon (ROZEREM) tablet 8 mg, 8 mg, Oral, QHS, Maya Alatorre MD, 8 mg at 12/12/192136 carvedilol (COREG) tablet 6.25 mg, 6.25 mg, Oral, BID MEALS, Hailey Fofana DO, 6.25 mg at12/13/19 0809 foLIC acid (FOLATE) tablet 1 mg, 1 mg, Oral, DAILY, Leda Alvarado DO, 1 mg at 12/13/19 0809 ipratropium-albuterol (DUONEB) 0.5 mg-3 mg(2.5 mg base)/3 mL nebulizer solution 3 mL, 3 mL, Inhalation, Q4H, Leda Alvarado DO, 3 mL at 12/13/19 1139 spironolactone (ALDACTONE) tablet 200 mg, 200 mg, Oral, DAILY, Leo Jones MD, 200 mg at 12/13/19 0810 dextrose 10% (D10W) bolus infusion 250 mL, 250 mL, IV Infusion, PRN - SEE INSTRUCTIONS, Junior Fofana DO heparin (porcine) injection 5,000 Units, 5,000 Units, Subcutaneous, Q12H, Junior Fofana DO, 5,000 Units at 12/13/19 0809 nicotine (NICODERM) 21 mg/24 hr patch 1 Patch, 1 Patch, Topical, Q24H, Maya Alatorre MD, 1 Patch at 12/13/19 0512 Miconazole Nitrate (DERMAFUNGAL) 2 % ointment, , Topical, BID, Kandis Parada, DO triamcinolone acetonide (TRIDERM) 0.1 % cream, , Topical, DAILY, Kandis Parada, DO aspirin chewable tablet 81 mg, 81 mg, Oral, DAILY, Moustapha Ferrer MD, 81 mg at 12/13/19 0809 acetaminophen-codeine (TYLENOL #3) 300-30 mg tablet 1 tablet, 1 tablet, Oral, Q4HPRN, Julio Womack, , 1 tablet at 12/12/19 0948 HYDROcodone-acetaminophen (NORCO 5) 5-325 mg tablet 1 tablet, 1 tablet, Oral, Q6HPRN, Julio Womack, , 1 tablet at 12/13/19 0512 Physical Examination: Temp: [36.3 C (97.3 F)-36.7 C (98.1 F)] Pulse: [68-86] Resp: [18] BP: (110-119)/(49-74) MAP (mmHg): [68] Intake/Output Summary (Last 24 hours) at 12/13/2019 1213 Last data filed at 12/13/2019 0900 Gross per 24 hour Intake Output 1400 ml Net -1400 ml General: alert and oriented x2, no apparent distress HEENT: pupils equal, round, reactive to light Neck: full range of motion Lungs: no crackles, right lung reduced breath sounds and positive egophony Cardio: RRR, S1, S2 normal; no murmurs appreciated Abdomen: soft; non-tender; distended; normoactive bowel sounds : not examined Rectal: not examined Extremities: 3+edema with chronic venous stasis changes Skin: no rashes Neuro: cranial nerves II through XII grossly intact Labs/Imaging/Pathology - reviewed EKG : RBBB and bifascicular block, no baseline ECG to compare Echocardiography : Left Ventricle The left ventrical is severely dilated. LV mass index 183 g/m2 and RWT 0.32 consistent wtih severe eccentric LVH. Left ventricular systolic function is severely reduced. Ejection Fraction=20-25%. Diastolic dysfunction. Severe Inferior , anteroseptal and inferoseptal wall hypokinesis. There are regional wall motion abnormalities as specified. Right Ventricle The right ventricle is normal in size and function. There is normal right ventricular wall thickness. Atria The left atrium is severely dilated. Right atrial size is normal. Mitral Valve The mitral valve is normal. There is mild mitral regurgitation. Tricuspid Valve The tricuspid valve is normal. Estimated RA pressure is 0-5 mmHg. Insufficient Tricuspid regurgitation jet to estimate RVSP. Aortic Valve The aortic valve is mildly thickened and calcified. The mean aortic valve gradient measures 20.9 mmHg. The peak to peak aortic valve gradient measures 38.3 mmHg. Measured by the continuity equation, the aortic valve area is 1.4cm2. Moderate valvular aortic stenosis. Mild aortic regurgitation. Pulmonic Valve The pulmonic valve is not well visualized. Page 1 of 2 11/27/2019 Great Vessels The aortic root is normal size. Pericardium/Pleural There is no pericardial effusion. The pericardium appears normal. Summary Statements A two-dimensional transthoracic echocardiogram with M-mode and Doppler was performed. The study was technically adequate. Compared to prior study, changes are noted. Left ventricular systolic function is severely reduced. Ejection Fraction=20-25% . Diastolic dysfunction. There are regional wall motion abnormalities as specified. Moderate valvular aortic stenosis with mild aortic regurgitation. The left atrium is severely dilated. Cardiac Cath : None available Assessment/Plan: Bob Dhaliwal is a 54 year old male admitted with: 1. Decompensated cirrhosis with large ascites, s/p 11 L paracentesis 2. Acute renal failure ( intravascular depleted with third spacing due to low albumin) mixed of HRS and pre-renal - resolved 3. Acute on chronic HFrEF 20-25% NYHA class Iv stage C 4. PVC's frequent 5. Moderate to large R pleural effusion 6. Medical noncompliance, hx of polysubstance abuse Developed acute renal failure in the setting of IV diuresis and paracentesis, now kidney function improved On 12/05/2019 , he went to technology lab teacher and was not able to lay flat therefore procedure was cancelled. Recommendations: Continue with gentle diuresis and obtain LHC once patient is able to lie flat and when ABDIAZIZ has improved, will plan for early next week. Rest of management per primary. Patient was seen and examined with Faculty Dr Jodie Becerra DO 12/13/2019 12:14 PM ICENOW ADMINISTRATOR Associated attestation - Justin Feliciano MD - 12/14/2019 11:45 AM CSTI personally examined the patient on 12/13/[address] Becerra's note as written. I actively participated in the decision-making process. Ana Morrison MD - 12/13/2019 6:50 AM CST PGY- 1 Remmers Team Progress Note Date of Service: 12/13/2019 06:50 Chief Complaint: SOB and abdominal swelling 24-HOUR EVENTS: No acute events overnight SUBJECTIVE: Much better mood today since cardiology told him that he may be posted on Monday. Willing to cut sodas over the weekend to prepare for possible LHC. Denies CP, palpitations, SOB at rest, SAWYER, abdominalpain/fullness, fever/ chills. Able to walk around the floor yesterday. PHYSICAL EXAM: Temp: [36.3 C (97.3 F)-36.7 C (98.1 F)] Pulse: [68-86] Resp: [18] BP: (110-119)/(47-74) MAP (mmHg): [64] Intake/Output Summary (Last 24 hours) at 12/13/2019 0650 Last data filed at 12/12/2019 1648 Gross per 24 hour Intake Output 350 ml Net -350 ml General: alert and oriented; in no distress Lungs: No crackles at bilateral lung bases Cardio: RRR; no murmurs, rubs or gallops Abdomen: distended, soft, tympanic; non TTP; normoactive bowel sounds Extremities: Bilateral trace LE pitting edema. LE still enlarged/swollen due to venous stasis dermatitis, unchanged. LABS/IMAGING - reviewed, pertinent results as below: Cr 0.83-->1.07--> 0.78 ASSESSMENT/PLAN Bob Dhaliwal is a 54 year old male with PMH as listed above, admitted to the hospital with: Decompensated HFrEF(EF 20-25%), Regional WMA High PVC burden Prolonged QTc Moderate aortic stenosis HTN Cardiology will reassess and may post him for cath early next week if volume overload and ABDIAZIZ improves enough. 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 Can consider transplant eval if his EF recovers. Continues to have good output, so will hold off on therapeutic paracentesis, especially given previous ABDIAZIZ. - Lasix + Spironolactone daily (goal of net negative 1-2 L daily) - Lactulose 30 QID (titrate to 3-4 BM's daily) R sided pleural effusion- likely hepatic hydrothorax Reported COPD - No PFTs on file Tobacco use/polysubstance use Chronic Hypoxic respiratory failure Stable pleural effusion. - c/w diuresis - c/w duonebs + pulmonary toilet + IS - nicotine patch Insomnia Anxiety/Agitation - ramelteon QHS - c/w thiamine + folate - c/w zoloft QHS PAIN: Improved Tylenol and [place] Prophylaxis: DVT- Contraindicated: Thrombocytopenia Stress Ulcer: no indication for prophylaxis Code Status: addressed: full code Disposition Anticipated Discharge Date : TBD Barriers to Discharge: IV diuresis Ana Morrison MD Internal Medicine, PGY1 [facility] Team Pager#: [phone] END OF DAILY PROGRESS NOTE Hospital Course Bob Dhaliwal is a 54 y/o male with 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 On admission heunderwent large volume paracentesis x 2 (w/11 L removed) - studies negative for SBP. He was concurrently receiving diuretic therapy for volume overload presumable 2/2 decompensated cirrhosis and HFrEF exacerbation. Hospital course was c/b oliguric ABDIAZIZ. He was placed on a short diuretic holiday and given albumin w/ subsequent improvement in renal function and UOP. Patient was transferred to MICU for closer monitoring of intraabdominal pressure due to concerns for abdominal compartment syndrome. Intraabdominal pressures downtrended. Restarted on aggressive diuretic regimen, once renal function improved. Of note patient w/ frequent PVC's, NSVT x 1, and mild troponin leak. EF similar to 04/2019, but decreased from 2017. Started on coreg per cardiology recs. Stable for TTF. EGD unremarkable. LHC not performed as patient cannot lay flat. Patient actively diuresing well. Chronic/Resolved Conditions: HTN Oliguric ABDIAZIZ, resolved Hyponatremia, resolved Hypochloremia, resolved Hepatic Encephalopathy, resolved ?Abdominal Compartment syndrome; ruled out Hyperkalemia, resolved Discharge Planning: - need outpatient f/u for untreated HCV - patient need to follow up with his network project manager within a week or schedule outpatient within 10 days after d/c. - Need BMP one week after discharge and continue same other plans and medications. - Life Vest prior to discharge CURRENT MEDICATIONS - reviewed. ICENOW ADMINISTRATOR Associated attestation - Dianna Barrett MD - 12/13/2019 12:48 PM CSTI discussed this patient in detail with resident physician Dr. Morrison, including the patients symptoms, exam findings, assessment and plan. I independently performed relevant portions of history and exam and jointly participated in the decision making process on 12/13/2019. Please see resident s Progress Note for details. Dianna Barrett MD, MPH [facility] Internal Medicine HernanJose, - 12/12/2019 1:43 PM CST Cardiology progress Note 12/12/2019 13:43 Bob Dhaliwal is a 54 year old male with history of HCV cirrhosis, Acute on chronic systolic HF ( EF 20-25%) NYHA class IV stage C, moderate aortic stenosis, COPD (on 2L home O2), HTN, tobacco use, and polysubstance abuse admitted from OSH for decompensated HCV cirrhosis. Troponin elevated 0.099. Telemetry notes frequent PVCs Patient denies chest pain, palpitation, dizziness syncope. Patient states feeling better since admission, body swelling has improved. ROS: 12 points ROS were obtained and negative except mentioned in HPI Past Medical History: Diagnosis Date CHF (congestive heart failure) COPD (chronic obstructive pulmonary disease) DM (diabetes mellitus) HTN (hypertension) Past Surgical History: Procedure Laterality Date ESOPHAGOGASTRODUODENOSCOPY N/A 12/04/2019 Surgeon: Chivo Vargas MD; Location: Endoscopy ([facility]) OR Location Family History Problem Relation Age of Onset Other - see comments Mother Epilepsy No Significant Medical Problems Father Social History Socioeconomic History Marital status: Single Spouse name: Not on file Number of children: Not on file Years of education: Not on file Highest education level: Not on file Occupational History Not on file Social Needs Financial resource strain: Not on file Food insecurity: Worry: Not on file Inability: Not on file Transportation needs: Medical: Not on file Non-medical: Not on file Tobacco Use Smoking status: Current Some Day Smoker Types: Cigarettes Smokeless tobacco: Never Used Tobacco comment: 2 packs a week Substance and Sexual Activity Alcohol use: No Drug use: Yes Types: Marijuana, Methamphetamines, Benzodiazepines Sexual activity: Not on file Lifestyle Physical activity: Days per week: Not on file Minutes per session: Not on file Stress: Not on file Relationships Social connections: Talks on phone: Not on file Gets together: Not on file Attends confucianist service: Not on file Active member of club or organization: Not on file Attends meetings of clubs or organizations: Not on file Relationship status: Not on file Intimate partner violence: Fear of current or ex partner: Not on file Emotionally abused: Not on file Physically abused: Not on file Forced sexual activity: Not on file Other Topics Concern Not on file Social History Narrative Not on file No Known Allergies Prior to Admission medications Medication Sig Start Date End Date Taking? Authorizing Provider digoxin 250 mcg (0.25 mg) tablet Take 250 mcg by mouth daily. Yes Doctor Unassigned, [place] furosemide (LASIX) 40 mg tablet Take 40 mg by mouth every morning and evening. Yes Doctor Unassigned, [place] sacubitril-valsartan (ENTRESTO) 24-26 mg tablet Take 1 tablet by mouth 2 (two) times daily. Yes Doctor Unassigned, [place] albuterol 90 mcg/actuation inhaler Inhale 2 Puffs every 6 (six) hours as needed for Wheezing or Shortness of Breath. 06/15/19 Moustapha Ferrer MD ipratropium 17 mcg/actuation inhaler Inhale 2 Puffs 3 (three) times daily. Moustapha Ferrer MD predniSONE 10 mg tablet Take 3 tablets by mouth daily. 06/15/19 Christian Mejia MD temazepam 15 mg capsule Take 1 capsule by mouth at bedtime as needed for Insomnia. 10/19/17 Saul Woodall MBBS Current Facility-Administered Medications: KCL (KLOR-CON M20) tablet 40 mEq, 40 mEq, Oral, BID, Ana Morrison MD, 40 mEq at 12/12/19 08 lactulose (CEPHULAC) solution 30 mL, 30 mL, Oral, BID, Ana Morrison MD lanolin kfpixxo-jt-i.pet-ceres (EUCERIN) cream, , Topical, DAILY, Ana Morrison MD magnesium oxide (MAG-OX 400) tablet 800 mg, 800 mg, Oral, DAILY, Ana Morrison MD, 800mg at 12/12/19800 thiamine (VITAMIN B1) tablet 100 mg, 100 mg, Oral, DAILY, Julio Urrutia MD, 100 mg at 12/12/19800 furosemide (LASIX) injection 60 mg, 60 mg, Slow IV Push, Q12H, Moustapha Ferrer MD, 60 mg at 12/12/19800 SERTraline (ZOLOFT) tablet 25 mg, 25 mg, Oral, QHS, Moustapha Ferrer MD, 25 mg at 12/11/19 2133 hydrOXYzine (ATARAX) tablet 10 mg, 10 mg, Oral, Q6HPRN, Maya Alatorre MD, 10 mg at 12/12/200848 ramelteon (ROZEREM) tablet 8 mg, 8 mg, Oral, QHS, Maya Alatorre MD, 8 mg at 12/11/19 213 carvedilol (COREG) tablet 6.25 mg, 6.25 mg, Oral, BID MEALS, BrigidoHailey DO, 6.25 mg at12/12/19 08 foLIC acid (FOLATE) tablet 1 mg, 1 mg, Oral, DAILY, Leda Alvarado DO, 1 mg at 12/12/19 08 ipratropium-albuterol (DUONEB) 0.5 mg-3 mg(2.5 mg base)/3 mL nebulizer solution 3 mL, 3 mL, Inhalation, Q4H, Leda Alvarado DO, 3 mL at 12/12/19 1025 spironolactone (ALDACTONE) tablet 200 mg, 200 mg, Oral, DAILY, Leo Jones MD, 200 mg at 12/12/19 0801 dextrose 10% (D10W) bolus infusion 250 mL, 250 mL, IV Infusion, PRN - SEE INSTRUCTIONS, Junior Fofana DO heparin (porcine) injection 5,000 Units, 5,000 Units, Subcutaneous, Q12H, Junior Fofana DO, 5,000 Units at 12/12/19 0802 nicotine (NICODERM) 21 mg/24 hr patch 1 Patch, 1 Patch, Topical, Q24H, Maya Alatorre MD, 1 Patch at 12/12/19 0517 Miconazole Nitrate (DERMAFUNGAL) 2 % ointment, , Topical, BID, Kandis Parada, triamcinolone acetonide (TRIDERM) 0.1 % cream, , Topical, DAILY, Kandis Parada, aspirin chewable tablet 81 mg, 81 mg, Oral, DAILY, Moustapha Ferrer MD, 81 mg at 12/12/19 0801 acetaminophen-codeine (TYLENOL #3) 300-30 mg tablet 1 tablet, 1 tablet, Oral, Q4HPRN, Julio Womack DO, 1 tablet at 12/12/19 0948 HYDROcodone-acetaminophen (NORCO 5) 5-325 mg tablet 1 tablet, 1 tablet, Oral, Q6HPRN, Julio Womack DO, 1 tablet at 12/11/19 2348 Physical Examination: Temp: [36.4 C (97.6 F)-36.9 C (98.5 F)] Pulse: [65-86] Resp: [18] BP: (118-127)/(47-65) MAP (mmHg): [64-76] Intake/Output Summary (Last 24 hours) at 12/12/2019 1343 Last data filed at 12/12/2019 0814 Gross per 24 hour Intake 400 ml Output 2850 ml Net -2450 ml General: alert and oriented x2, no apparent distress HEENT: pupils equal, round, reactive to light Neck: full range of motion Lungs: no crackles, right lung reduced breath sounds and positive egophony Cardio: RRR, S1, S2 normal; no murmurs appreciated Abdomen: soft; non-tender; distended; normoactive bowel sounds : not examined Rectal: not examined Extremities: 3+edema with chronic venous stasis changes Skin: no rashes Neuro: cranial nerves II through XII grossly intact Labs/Imaging/Pathology - reviewed EKG : RBBB and bifascicular block, no baseline ECG to compare Echocardiography : Left Ventricle The left ventrical is severely dilated. LV mass index 183 g/m2 and RWT 0.32 consistent wtih severe eccentric LVH. Left ventricular systolic function is severely reduced. Ejection Fraction=20-25%. Diastolic dysfunction. Severe Inferior , anteroseptal and inferoseptal wall hypokinesis. There are regional wall motion abnormalities as specified. Right Ventricle The right ventricle is normal in size and function. There is normal right ventricular wall thickness. Atria The left atrium is severely dilated. Right atrial size is normal. Mitral Valve The mitral valve is normal. There is mild mitral regurgitation. Tricuspid Valve The tricuspid valve is normal. Estimated RA pressure is 0-5 mmHg. Insufficient Tricuspid regurgitation jet to estimate RVSP. Aortic Valve The aortic valve is mildly thickened and calcified. The mean aortic valve gradient measures 20.9 mmHg. The peak to peak aortic valve gradient measures 38.3 mmHg. Measured by the continuity equation, the aortic valve area is 1.4cm2. Moderate valvular aortic stenosis. Mild aortic regurgitation. Pulmonic Valve The pulmonic valve is not well visualized. Page 1 of 2 11/27/2019 Great Vessels The aortic root is normal size. Pericardium/Pleural There is no pericardial effusion. The pericardium appears normal. Summary Statements A two-dimensional transthoracic echocardiogram with M-mode and Doppler was performed. The study was technically adequate. Compared to prior study, changes are noted. Left ventricular systolic function is severely reduced. Ejection Fraction=20-25% . Diastolic dysfunction. There are regional wall motion abnormalities as specified. Moderate valvular aortic stenosis with mild aortic regurgitation. The left atrium is severely dilated. Cardiac Cath : None available Assessment/Plan: Bob Dhaliwal is a 54 year old male admitted with: 1. Decompensated cirrhosis with large ascites, s/p 11 L paracentesis 2. Acute renal failure ( intravascular depleted with third spacing due to low albumin) mixed of HRS and pre-renal - resolved 3. Acute on chronic HFrEF 20-25% NYHA class Iv stage C 4. PVC's frequent 5. Moderate to large R pleural effusion 6. Medical noncompliance, hx of polysubstance abuse Developed acute renal failure in the setting of IV diuresis and paracentesis, now kidney function improved On 12/05/2019 , he went to technology lab teacher and was not able to lay flat therefore procedure was cancelled. Recommendations: Continue with gentle diuresis and obtain LHC once patient is able to lie flat and when ABDIAZIZ has improved Rest of management per primary. Patient was seen and examined with Faculty Dr Jodie Becerra DO 12/12/2019 1:44 PM ICENOW ADMINISTRATOR Associated attestation - Justin Feliciano MD - 12/12/2019 8:45 PM CSTI personally examined the patient on 12/12/[address] Becerra's note as written. I actively participated in the decision-making process. Linda Diaz - 12/12/2019 10:20 AM CST Medical Nutrition Ezazjef-Aifyec-oa Malnutrition Assessment: Nutritional Diagnosis: Moderate protein calorie malnutrition SGA Rating: Mild / Moderate Chief Complaint: SOB and abdominal swelling PMH/PSH: Past Medical History: Diagnosis Date CHF (congestive heart failure) COPD (chronic obstructive pulmonary disease) DM (diabetes mellitus) HTN (hypertension) Past Surgical History: Procedure Laterality Date ESOPHAGOGASTRODUODENOSCOPY N/A 12/04/2019 Surgeon: Chivo Vargas MD; Location: Endoscopy ([facility]) OR Location GI and Nutrition Related Findings: Symptoms: N/A Difficulty: N/A GI tract alteration: Resection Alternative means of nutrition: N/A General: Edema Medications: I have reviewed the medications currently ordered in the EMR located under the medications andMAR tabs. Current medications include: Current Facility-Administered Medications: KCL (KLOR-CON M20) tablet 40 mEq, 40 mEq, Oral, BID, Ana Morrison MD, 40 mEq at 12/12/19 0801 lanolin gnwbyoo-rk-t.pet-ceres (EUCERIN) cream, , Topical, DAILY, Ana Morrison MD magnesium oxide (MAG-OX 400) tablet 800 mg, 800 mg, Oral, DAILY, Ana Morrison MD, 800mg at 12/12/19 08 thiamine (VITAMIN B1) tablet 100 mg, 100 mg, Oral, DAILY, Julio Urrutia MD, 100 mg at 12/12/19 08 furosemide (LASIX) injection 60 mg, 60 mg, Slow IV Push, Q12H, Moustapha Ferrer MD, 60 mg at 12/12/19 08 SERTraline (ZOLOFT) tablet 25 mg, 25 mg, Oral, QHS, Moustapha Ferrer MD, 25 mg at 12/11/19 2133 lactulose (CEPHULAC) solution 30 mL, 30 mL, Oral, TID, Moustapha Ferrer MD, 30 mL at 12/12/19 08 hydrOXYzine (ATARAX) tablet 10 mg, 10 mg, Oral, Q6HPRN, Maya Alatorre MD, 10 mg at 12/12/200848 ramelteon (ROZEREM) tablet 8 mg, 8 mg, Oral, QHS, Maya Alatorre MD, 8 mg at 12/11/19 2133 carvedilol (COREG) tablet 6.25 mg, 6.25 mg, Oral, BID MEALS, Hailey Fofana DO, 6.25 mg at12/12/19 0801 foLIC acid (FOLATE) tablet 1 mg, 1 mg, Oral, DAILY, Leda Alvarado DO, 1 mg at 12/12/19 08 ipratropium-albuterol (DUONEB) 0.5 mg-3 mg(2.5 mg base)/3 mL nebulizer solution 3 mL, 3 mL, Inhalation, Q4H, Leda Alvarado DO, 3 mL at 12/12/19 0717 spironolactone (ALDACTONE) tablet 200 mg, 200 mg, Oral, DAILY, Leo Jones MD, 200 mg at 12/12/19 08 dextrose 10% (D10W) bolus infusion 250 mL, 250 mL, IV Infusion, PRN - SEE INSTRUCTIONS, Junior Fofana DO heparin (porcine) injection 5,000 Units, 5,000 Units, Subcutaneous, Q12H, Junior Fofana DO, 5,000 Units at 12/12/19 0802 nicotine (NICODERM) 21 mg/24 hr patch 1 Patch, 1 Patch, Topical, Q24H, Maya Alatorre MD, 1 Patch at 12/12/19 0517 Miconazole Nitrate (DERMAFUNGAL) 2 % ointment, , Topical, BID, Kandis Parada, triamcinolone acetonide (TRIDERM) 0.1 % cream, , Topical, DAILY, Kandis Parada DO aspirin chewable tablet 81 mg, 81 mg, Oral, DAILY, Moustapha Ferrer MD, 81 mg at 12/12/19 0801 acetaminophen-codeine (TYLENOL #3) 300-30 mg tablet 1 tablet, 1 tablet, Oral, Q4HPRN, Julio Womack DO, 1 tablet at 12/12/19 0948 HYDROcodone-acetaminophen (NORCO 5) 5-325 mg tablet 1 tablet, 1 tablet, Oral, Q6HPRN, Julio Womack DO, 1 tablet at 12/11/19 2348 Lab and Medical Test Results: NA (mmol/L) Date Value 12/12/2019 136 K (mmol/L) Date Value 12/12/2019 3.6 CALCIUM (mg/dL) Date Value 12/12/2019 8.0 (L) CL (mmol/L) Date Value 12/12/2019 96 (L) BUN (mg/dL) Date Value 12/12/2019 22 CREATININE (mg/dL) Date Value 12/12/2019 1.07 GLUCOSE (mg/dL) Date Value 12/12/2019 139 (H) CO2 TOTAL (mmol/L) Date Value 12/12/2019 30 ALBUMIN (g/dL) Date Value 12/06/2019 2.7 (L) T PROTEIN (g/dL) Date Value 12/06/2019 5.8 (L) TOTAL BILI (mg/dL) Date Value 12/06/2019 1.3 (H) BILI UNCON (mg/dL) Date Value 12/06/2019 0.8 BILI CONJ (mg/dL) Date Value 12/06/2019 0.0 ALT(SGPT) (U/L) Date Value 06/15/2019 312 (H) ALTv (U/L) Date Value 12/06/2019 62 (H) AST(SGOT) (U/L) Date Value 12/06/2019 110 (H) ALK PHOS (U/L) Date Value 12/06/2019 57 Nutrition Assessment: Age: [age] year old Sex: male Ht: 1.778 m / 5'10" Ht Readings from Last 3 Encounters: 12/05/19 1.778 m (5' 10") 06/13/19 1.778 m (5' 10") 10/18/17 1.803 m (5' 11") Current Wt: 119.7 kg/ 264 lb BMI: Body mass index is 37.88 kg/m. (Obesity (BMI 30-39.9)) IBW for Ht: 75.45 kg +/- 7 kg %IBW: 159% Weight History: Wt Readings from Last 10 Encounters: 12/05/19 119.7 kg (264 lb) 06/13/19 94.6 kg (208 lb 8 oz) 10/18/17 95.3 kg (210 lb) Inflammatory Markers: Hyperglycemia Current Dietary Order(s): Low Sodium (2 gm) Diet; Texture: Regular No soda. Nutrition & Diet History: Patient not in room at time of visit. Per RN, appetite and intake aregood and no N/V/D/C at this time. Recommend continuing current Low-Sodium (2gm) Diet. Will continueto follow-up. Estimated Daily Nutritional Needs: Calories: 2633 kcal/day=22 kcal/kg current wt=35 kcal/kg IBW Protein: 18 % of kcal need/kiw=641 g/day=1.0 g/kg current wt=1.6 g/kg IBW Carbohydrate: 45 % of kcal need/vds=259 g/day=20 choices Fluid: 2633 mL/day or per MD; adjust per acute needs Nutrition Diagnosis: None at this time. Nutrition Plan of Care: Intervention(s): 1. Recommend continuing current Low-Sodium Diet D/C Planning: Pending Nutrition Monitoring and Evaluation: A registered dietitian will f/u as indicated to report nutrition related information and to revise the recommended nutrition intervention(s); please call with questions or concerns, thank-you. Linda Diaz RD, LD Clinical Dietitian RD Office: [id number] Ana Medel MD - 12/12/2019 7:15 AM CST PGY- 1 [facility] Team Progress Note Date of Service: 12/12/2019 07:15 Chief Complaint: SOB and abdominal swelling 24-HOUR EVENTS: No acute events overnight AF VSS SUBJECTIVE: Continues to express frustration- feels that he is not moving forward. Has not been elevating legs. Denies CP, palpitations, SOB at rest, abdominal pain/ fullness. PHYSICAL EXAM: Temp: [36.4 C (97.6 F)-37 C (98.6 F)] Pulse: [65-80] Resp: [18] BP: (101-127)/(40-65) MAP (mmHg): [76] Intake/Output Summary (Last 24 hours) at 12/12/2019 0715 Last data filed at 12/12/2019 0519 Gross per 24 hour Intake 736 ml Output 4100 ml Net -3364 ml Tele: Sinus w/ IVCD, 1st degree AV block. No alarms. PVC's 11/min. Trending 80- 90's. General: alert and oriented x 4; in no distress Lungs: No crackles at bilateral lung bases Cardio: RRR; no murmurs, rubs or gallops Abdomen: distended, soft, tympanic; non TTP; normoactive bowel sounds Extremities: Bilateral 1+ LE pitting edema with venous stasis dermatitis; has 2 small skin ulcerations at anterior portion of left lower leg- no erythema/ purulence; more moisturized today LABS/IMAGING - reviewed, pertinent results as below: Na 136 K 3.6 Cr 0.83-->1.07 Mg 1.8, repleting ASSESSMENT/PLAN Bob Dhaliwal is a 54 year old male with PMH as listed above, admitted to the hospital with: Decompensated HFrEF(EF 20-25%), Regional WMA High PVC burden Prolonged QTc Moderate aortic stenosis HTN Cardiology will reassess and may post him for cath early next week if volume overload improves enough. Will go back to lasix 60mg BID today as Cr increased w / extra dose given yesterday. 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 Can consider transplant eval if his EF recovers. Continues to have good output, so will hold off on therapeutic paracentesis, especially given previous ABDIAZIZ. - Lasix + Spironolactone daily (goal of net negative 1-2 L daily) - Lactulose 30 QID (titrate to 3-4 BM's daily) R sided pleural effusion- likely hepatic hydrothorax Reported COPD - No PFTs on file Tobacco use/polysubstance use Chronic Hypoxic respiratory failure Stable pleural effusion. - c/w diuresis - c/w duonebs + pulmonary toilet + IS - nicotine patch Insomnia Anxiety/Agitation - ramelteon QHS - c/w thiamine + folate - c/w zoloft QHS PAIN: Improved Tylenol and [place] Prophylaxis: DVT- Contraindicated: Thrombocytopenia Stress Ulcer: no indication for prophylaxis Code Status: addressed: full code Disposition Anticipated Discharge Date : TBD Barriers to Discharge: IV diuresis Ana Morrison MD Internal Medicine, PGY1 [facility] Team Pager#: [phone] END OF DAILY PROGRESS NOTE Hospital Course Bob Dhaliwal is a 54 y/o male with 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 On admission heunderwent large volume paracentesis x 2 (w/11 L removed) - studies negative for SBP. He was concurrently receiving diuretic therapy for volume overload presumable 2/2 decompensated cirrhosis and HFrEF exacerbation. Hospital course was c/b oliguric ABDIAZIZ. He was placed on a short diuretic holiday and given albumin w/ subsequent improvement in renal function and UOP. Patient was transferred to MICU for closer monitoring of intraabdominal pressure due to concerns for abdominal compartment syndrome. Intraabdominal pressures downtrended. Restarted on aggressive diuretic regimen, once renal function improved. Of note patient w/ frequent PVC's, NSVT x 1, and mild troponin leak. EF similar to 04/2019, but decreased from 2017. Started on coreg per cardiology recs. Stable for TTF. EGD unremarkable. LHC not performed as patient cannot lay flat. Patient actively diuresing well. Chronic/Resolved Conditions: HTN Oliguric ABDIAZIZ, resolved Hyponatremia, resolved Hypochloremia, resolved Hepatic Encephalopathy, resolved ?Abdominal Compartment syndrome; ruled out Hyperkalemia, resolved Discharge Planning: - need outpatient f/u for untreated HCV - patient need to follow up with his network project manager within a week or schedule outpatient within 10 days after d/c. - Need BMP one week after discharge and continue same other plans and medications. - Life Vest prior to discharge CURRENT MEDICATIONS - reviewed. ICENOW ADMINISTRATOR Associated attestation - Dianna Barrett MD - 12/12/2019 4:49 PM CSTI discussed this patient in detail with resident physician Dr. Morrison, including the patients symptoms, exam findings, assessment and plan. I independently performed relevant portions of history and exam and jointly participated in the decision making process on 12/12/2019. Please see resident s Progress Note for details. Dianna Barrett MD, MPH [facility] Internal Medicine Jose Becerra, - 12/11/2019 1:14 PM CST Cardiology progress Note 12/11/2019 13:14 Bob Dhaliwal is a 54 year old male with history of HCV cirrhosis, Acute on chronic systolic HF ( EF 20-25%) NYHA class IV stage C, moderate aortic stenosis, COPD (on 2L home O2), HTN, tobacco use, and polysubstance abuse admitted from OSH for decompensated HCV cirrhosis. Troponin elevated 0.099. Telemetry notes frequent PVCs Patient denies chest pain, palpitation, dizziness syncope. Patient states feeling better since admission, body swelling has improved. ROS: 12 points ROS were obtained and negative except mentioned in HPI Past Medical History: Diagnosis Date CHF (congestive heart failure) COPD (chronic obstructive pulmonary disease) DM (diabetes mellitus) HTN (hypertension) Past Surgical History: Procedure Laterality Date ESOPHAGOGASTRODUODENOSCOPY N/A 12/04/2019 Surgeon: Chivo Vargas MD; Location: Endoscopy ([facility]) OR Location Family History Problem Relation Age of Onset Other - see comments Mother Epilepsy No Significant Medical Problems Father Social History Socioeconomic History Marital status: Single Spouse name: Not on file Number of children: Not on file Years of education: Not on file Highest education level: Not on file Occupational History Not on file Social Needs Financial resource strain: Not on file Food insecurity: Worry: Not on file Inability: Not on file Transportation needs: Medical: Not on file Non-medical: Not on file Tobacco Use Smoking status: Current Some Day Smoker Types: Cigarettes Smokeless tobacco: Never Used Tobacco comment: 2 packs a week Substance and Sexual Activity Alcohol use: No Drug use: Yes Types: Marijuana, Methamphetamines, Benzodiazepines Sexual activity: Not on file Lifestyle Physical activity: Days per week: Not on file Minutes per session: Not on file Stress: Not on file Relationships Social connections: Talks on phone: Not on file Gets together: Not on file Attends confucianist service: Not on file Active member of club or organization: Not on file Attends meetings of clubs or organizations: Not on file Relationship status: Not on file Intimate partner violence: Fear of current or ex partner: Not on file Emotionally abused: Not on file Physically abused: Not on file Forced sexual activity: Not on file Other Topics Concern Not on file Social History Narrative Not on file No Known Allergies Prior to Admission medications Medication Sig Start Date End Date Taking? Authorizing Provider digoxin 250 mcg (0.25 mg) tablet Take 250 mcg by mouth daily. Yes Doctor Unassigned, [place] furosemide (LASIX) 40 mg tablet Take 40 mg by mouth every morning and evening. Yes Doctor Unassigned, [place] sacubitril-valsartan (ENTRESTO) 24-26 mg tablet Take 1 tablet by mouth 2 (two) times daily. Yes Doctor Unassigned, [place] albuterol 90 mcg/actuation inhaler Inhale 2 Puffs every 6 (six) hours as needed for Wheezing or Shortness of Breath. 06/15/19 Moustapha Ferrer MD ipratropium 17 mcg/actuation inhaler Inhale 2 Puffs 3 (three) times daily. Moustapha Ferrer MD predniSONE 10 mg tablet Take 3 tablets by mouth daily. 06/15/19 Christian Mejia MD temazepam 15 mg capsule Take 1 capsule by mouth at bedtime as needed for Insomnia. 10/19/17 Saul Woodall MBBS Current Facility-Administered Medications: [START ON 12/12/2019] lanolin ezfmual-pk-m.pet-ceres (EUCERIN) cream, , Topical, DAILY, Ana Morrison MD magnesium oxide (MAG-OX 400) tablet 800 mg, 800 mg, Oral, DAILY, Ana Morrison MD, 800mg at 12/11/19801 thiamine (VITAMIN B1) tablet 100 mg, 100 mg, Oral, DAILY, Julio Urrutia MD, 100 mg at 12/11/19805 furosemide (LASIX) injection 60 mg, 60 mg, Slow IV Push, Q12H, Moustapha Ferrer MD, 60 mg at 12/11/19802 SERTraline (ZOLOFT) tablet 25 mg, 25 mg, Oral, QHS, Moustapha Ferrer MD, 25 mg at 12/10/192010 lactulose (CEPHULAC) solution 30 mL, 30 mL, Oral, TID, Moustapha Ferrer MD, 30 mL at 12/11/19802 hydrOXYzine (ATARAX) tablet 10 mg, 10 mg, Oral, Q6HPRN, Maya Alatorre MD, 10 mg at ramelteon (ROZEREM) tablet 8 mg, 8 mg, Oral, QHS, Maya Alatorre MD, 8 mg at 12/10/192009 carvedilol (COREG) tablet 6.25 mg, 6.25 mg, Oral, BID MEALS, Hailey Fofana DO, 6.25 mg at12/11/19801 foLIC acid (FOLATE) tablet 1 mg, 1 mg, Oral, DAILY, Leda Alvarado DO, 1 mg at 12/11/19 08 ipratropium-albuterol (DUONEB) 0.5 mg-3 mg(2.5 mg base)/3 mL nebulizer solution 3 mL, 3 mL, Inhalation, Q4H, Leda Alvarado DO, 3 mL at 12/11/19 1036 spironolactone (ALDACTONE) tablet 200 mg, 200 mg, Oral, DAILY, Leo Jones MD, 200 mg at 12/11/19 0806 dextrose 10% (D10W) bolus infusion 250 mL, 250 mL, IV Infusion, PRN - SEE INSTRUCTIONS, Junior Fofana DO heparin (porcine) injection 5,000 Units, 5,000 Units, Subcutaneous, Q12H, Junior Fofana DO, 5,000 Units at 12/11/19 0815 nicotine (NICODERM) 21 mg/24 hr patch 1 Patch, 1 Patch, Topical, Q24H, Maya Alatorre MD, 1 Patch at 12/11/19 0633 Miconazole Nitrate (DERMAFUNGAL) 2 % ointment, , Topical, BID, Kandis Parada DO triamcinolone acetonide (TRIDERM) 0.1 % cream, , Topical, DAILY, Kandis Parada DO aspirin chewable tablet 81 mg, 81 mg, Oral, DAILY, Moustapha Ferrer MD, 81 mg at 12/11/19 0802 acetaminophen-codeine (TYLENOL #3) 300-30 mg tablet 1 tablet, 1 tablet, Oral, Q4HPRN, Julio Womack DO, 1 tablet at 12/11/19 0802 HYDROcodone-acetaminophen (NORCO 5) 5-325 mg tablet 1 tablet, 1 tablet, Oral, Q6HPRN, Julio Womack DO, 1 tablet at 12/11/19 1242 Physical Examination: Temp: [36.3 C (97.4 F)-37 C (98.6 F)] Pulse: [68-86] Resp: [18-20] BP: (101-121)/(40-55) MAP (mmHg): [58] Intake/Output Summary (Last 24 hours) at 12/11/2019 1314 Last data filed at 12/11/2019 1246 Gross per 24 hour Intake 1336 ml Output 4150 ml Net -2814 ml General: alert and oriented x2, no apparent distress HEENT: pupils equal, round, reactive to light Neck: full range of motion Lungs: no crackles, right lung reduced breath sounds and positive egophony Cardio: RRR, S1, S2 normal; no murmurs appreciated Abdomen: soft; non-tender; distended; normoactive bowel sounds : not examined Rectal: not examined Extremities: 3+edema with chronic venous stasis changes Skin: no rashes Neuro: cranial nerves II through XII grossly intact Labs/Imaging/Pathology - reviewed EKG : RBBB and bifascicular block, no baseline ECG to compare Echocardiography : Left Ventricle The left ventrical is severely dilated. LV mass index 183 g/m2 and RWT 0.32 consistent wtih severe eccentric LVH. Left ventricular systolic function is severely reduced. Ejection Fraction=20-25%. Diastolic dysfunction. Severe Inferior , anteroseptal and inferoseptal wall hypokinesis. There are regional wall motion abnormalities as specified. Right Ventricle The right ventricle is normal in size and function. There is normal right ventricular wall thickness. Atria The left atrium is severely dilated. Right atrial size is normal. Mitral Valve The mitral valve is normal. There is mild mitral regurgitation. Tricuspid Valve The tricuspid valve is normal. Estimated RA pressure is 0-5 mmHg. Insufficient Tricuspid regurgitation jet to estimate RVSP. Aortic Valve The aortic valve is mildly thickened and calcified. The mean aortic valve gradient measures 20.9 mmHg. The peak to peak aortic valve gradient measures 38.3 mmHg. Measured by the continuity equation, the aortic valve area is 1.4cm2. Moderate valvular aortic stenosis. Mild aortic regurgitation. Pulmonic Valve The pulmonic valve is not well visualized. Page 1 of 2 11/27/2019 Great Vessels The aortic root is normal size. Pericardium/Pleural There is no pericardial effusion. The pericardium appears normal. Summary Statements A two-dimensional transthoracic echocardiogram with M-mode and Doppler was performed. The study was technically adequate. Compared to prior study, changes are noted. Left ventricular systolic function is severely reduced. Ejection Fraction=20-25% . Diastolic dysfunction. There are regional wall motion abnormalities as specified. Moderate valvular aortic stenosis with mild aortic regurgitation. The left atrium is severely dilated. Cardiac Cath : None available Assessment/Plan: Bob Dhaliwal is a 54 year old male admitted with: 1. Decompensated cirrhosis with large ascites, s/p 11 L paracentesis 2. Acute renal failure ( intravascular depleted with third spacing due to low albumin) mixed of HRS and pre-renal - resolved 3. Acute on chronic HFrEF 20-25% NYHA class Iv stage C 4. PVC's frequent 5. Moderate to large R pleural effusion 6. Medical noncompliance, hx of polysubstance abuse Developed acute renal failure in the setting of IV diuresis and paracentesis, now kidney function improved On 12/05/2019 , he went to technology lab teacher and was not able to lay flat therefore procedure was cancelled. Recommendations: Continue diuresis and obtain LHC once patient is able to lie flat. Rest of management per primary. Patient was seen and examined with Faculty Dr Jodie Becerra DO 12/11/2019 1:15 PM ICENOW ADMINISTRATOR Associated attestation - Justin Feliciano MD - 12/11/2019 1:30 PM CSTI personally examined the patient on 12/11/[address] Becerra's note as written. I actively participated in the decision-making process. Zaheer Mackenzie RN - 12/11/2019 10:25 AM [facility] Management Note 12/11/19 10:25 AM Attempted to get SS award letter via phone, verified from administration that he gets [phone] after fees for Medicare. Patient will get a copy of the award letter in the mail(could be up to three weeks), we will also attempt to establish a [employer] account to help patient get his information online. Will follow up after lunch per patient's request. VU Spear, RN Hospice Team Lead [email or web address] O:[phone] [phone] Ana Medel MD - 12/11/2019 7:15 AM CST PGY- 1 [facility] Team Progress Note Date of Service: 12/11/2019 07:15 Chief Complaint: SOB and abdominal swelling 24-HOUR EVENTS: No acute events overnight SUBJECTIVE: Patient continues to state that he is able to lie flat and does not do so due to anxiety. Thinks that if he has a towel to elevate his head slightly, he should be able to tolerate lying flat on his back for at least 1 hour. Denies CP , palpitations, SOB at rest, and abdominal pain/fullness. Has not been walking around unit or elevating legs often. He has been drinking soda. PHYSICAL EXAM: Temp: [36.3 C (97.4 F)-36.8 C (98.3 F)] Pulse: [68-77] Resp: [18-20] BP: (101-120)/(44-49) MAP (mmHg): [58-66] Intake/Output Summary (Last 24 hours) at 12/11/2019 0795 Last data filed at 12/11/2019 0345 Gross per 24 hour Intake 1000 ml Output 2750 ml Net -1750 ml Tele: Sinus w/ IVCD, 1st degree AV block. No alarms. Did not report seeing PVC' s this AM. Trending 80-90's. General: alert and oriented x 4; in no distress Lungs: Faint crackles at bilateral lung bases Cardio: RRR; no murmurs, rubs or gallops Abdomen: distended, soft, tympanic; non TTP; normoactive bowel sounds Extremities: Bilateral 2+ LE pitting edema with venous stasis dermatitis; has a small skin ulceration at anterior portion of left lower leg that is weeping, but does not appear erythematous/purulent. LABS/IMAGING - reviewed, pertinent results as below: Wbc 4.60 Hg 9.8 Na 136 K 4.0 Cr 0.83 Mg 1.8, repleting ASSESSMENT/PLAN Bob Dhaliwal is a 54 year old male with PMH as listed above, admitted to the hospital with: Decompensated HFrEF(EF 20-25%), Regional WMA High PVC burden Prolonged QTc Moderate aortic stenosis HTN Patient able to lie flat on exam today, so will touch base with cardiology about possibility of LHC.Will continue to diurese cautiously to prevent repeat ABDIAZIZ. 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 Can consider transplant eval if his EF recovers. Continues to have good output, so will hold off on therapeutic paracentesis, especially given previous ABDIAZIZ. - Lasix + Spironolactone daily (goal of net negative 1-2 L daily) - Lactulose 30 QID (titrate to 3-4 BM's daily) R sided pleural effusion- likely hepatic hydrothorax Reported COPD - No PFTs on file Tobacco use/polysubstance use Chronic Hypoxic respiratory failure Stable pleural effusion. - c/w diuresis - c/w duonebs + pulmonary toilet + IS - nicotine patch Insomnia Anxiety/Agitation - ramelteon QHS - c/w thiamine + folate - c/w zoloft QHS PAIN: Improved Tylenol and [place] Prophylaxis: DVT- Contraindicated: Thrombocytopenia Stress Ulcer: no indication for prophylaxis Code Status: addressed: full code Disposition Anticipated Discharge Date : TBD Barriers to Discharge: IV diuresis Ana Morrison MD Internal Medicine, PGY1 [facility] Team Pager#: [phone] END OF DAILY PROGRESS NOTE Hospital Course Bob Dhaliwal is a 54 y/o male with 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 On admission heunderwent large volume paracentesis x 2 (w/11 L removed) - studies negative for SBP. He was concurrently receiving diuretic therapy for volume overload presumable 2/2 decompensated cirrhosis and HFrEF exacerbation. Hospital course was c/b oliguric ABDIAZIZ. He was placed on a short diuretic holiday and given albumin w/ subsequent improvement in renal function and UOP. Patient was transferred to MICU for closer monitoring of intraabdominal pressure due to concerns for abdominal compartment syndrome. Intraabdominal pressures downtrended. Restarted on aggressive diuretic regimen, once renal function improved. Of note patient w/ frequent PVC's, NSVT x 1, and mild troponin leak. EF similar to 04/2019, but decreased from 2017. Started on coreg per cardiology recs. Stable for TTF. EGD unremarkable. LHC not performed as patient cannot lay flat. Patient actively diuresing well. Chronic/Resolved Conditions: HTN Oliguric ABDIAZIZ, resolved Hyponatremia, resolved Hypochloremia, resolved Hepatic Encephalopathy, resolved ?Abdominal Compartment syndrome; ruled out Hyperkalemia, resolved Discharge Planning: - need outpatient f/u for untreated HCV - patient need to follow up with his network project manager within a week or schedule outpatient within 10 days after d/c. - Need BMP one week after discharge and continue same other plans and medications. - Life Vest prior to discharge CURRENT MEDICATIONS - reviewed. ICENOW ADMINISTRATOR Associated attestation - Dianna Barrett MD - 12/11/2019 12:43 PM CSTI discussed this patient in detail with resident physician Dr. Morrison, including the patients symptoms, exam findings, assessment and plan. I independently performed relevant portions of history and exam and jointly participated in the decision making process on 12/11/2019. Please see resident s Progress Note for details. Dianna Barrett MD, MPH [facility] Internal Medicine Zaheer Mackenzie, RN - 12/10/2019 1:32 PM [facility] Management Note 12/10/19 1:32 PM Spoke with [employer] rep, due to patient's income of 1300 per month, patient qualifies for [employer] patient assistance program even with medicare. Will follow up with PAP once paperwork has been sent to us and proof of income from patient. VU Spear, RN Hospice Team Lead [email or web address] O:[phone] F:[phone] Ana Medel MD - 12/10/2019 7:02 AM CST PGY- 1 [employer] Team Progress Note Date of Service: 12/10/2019 07:02 Chief Complaint: SOB and abdominal swelling 24-HOUR EVENTS: No acute events overnight SUBJECTIVE: Feels well, would like to have LHC and asks again today. Denies SOB at rest, CP , palpitations, abdominal pain/fullness. Has not been getting up to walk around too much. PHYSICAL EXAM: Temp: [36.4 C (97.6 F)-36.9 C (98.5 F)] Pulse: [69-84] Resp: [16-20] BP: (93-127)/(48-62) MAP (mmHg): [67-76] Intake/Output Summary (Last 24 hours) at 12/10/2019 0702 Last data filed at 12/10/2019 0337 Gross per 24 hour Intake 360 ml Output 3200 ml Net -2840 ml Tele: Sinus w/ IVCD, no alarms. Frequent PVC's at 11/min. Trending 70-80's. General: alert and oriented x 4; in no distress Lungs: Faint crackles at bilateral lung bases Cardio: RRR; no murmurs, rubs or gallops Abdomen: distended, soft, tympanic; non TTP; normoactive bowel sounds Extremities: b/l 2+ LE pitting edema with venous stasis dermatitis LABS/IMAGING - reviewed, pertinent results as below: Na 133 K 4.2 Cr 0.82 Mg 1.9, repleting ASSESSMENT/PLAN Bob Dhaliwal is a 54 year old male with PMH as listed above, admitted to the hospital with: Decompensated HFrEF(EF 20-25%), Regional WMA High PVC burden Prolonged QTc Moderate aortic stenosis HTN Life vest has been arranged. LHC still cannot performed as patient cannot lay flat. 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 Can consider transplant eval if his EF recovers. Continues to have good output, so will hold off on therapeutic paracentesis. - Lasix + Spironolactone daily (goal of net negative 1-2 L daily) - Lactulose 30 QID (titrate to 3-4 BM's daily) R sided pleural effusion- likely hepatic hydrothorax Reported COPD - No PFTs on file Tobacco use/polysubstance use Chronic Hypoxic respiratory failure Stable pleural effusion. - c/w diuresis - c/w duonebs + pulmonary toilet + IS - nicotine patch Insomnia Anxiety/Agitation - ramelteon QHS - c/w thiamine + folate - c/w zoloft QHS PAIN: Improved Tylenol and [place] Prophylaxis: DVT- Contraindicated: Thrombocytopenia Stress Ulcer: no indication for prophylaxis Code Status: addressed: full code Disposition Anticipated Discharge Date : TBD Barriers to Discharge: IV diuresis Ana Morrison MD Internal Medicine, PGY1 [facility] Team Pager#: [phone] END OF DAILY PROGRESS NOTE Hospital Course Bob Dhaliwal is a 54 y/o male with 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 On admission heunderwent large volume paracentesis x 2 (w/11 L removed) - studies negative for SBP. He was concurrently receiving diuretic therapy for volume overload presumable 2/2 decompensated cirrhosis and HFrEF exacerbation. Hospital course was c/b oliguric ABDIAZIZ. He was placed on a short diuretic holiday and given albumin w/ subsequent improvement in renal function and UOP. Patient was transferred to MICU for closer monitoring of intraabdominal pressure due to concerns for abdominal compartment syndrome. Intraabdominal pressures downtrended. Restarted on aggressive diuretic regimen, once renal function improved. Of note patient w/ frequent PVC's, NSVT x 1, and mild troponin leak. EF similar to 04/2019, but decreased from 2017. Started on coreg per cardiology recs. Stable for TTF. EGD unremarkable. LHC not performed as patient cannot lay flat. Patient actively diuresing well. Chronic/Resolved Conditions: HTN Oliguric ABDIAZIZ, resolved Hyponatremia, resolved Hypochloremia, resolved Hepatic Encephalopathy, resolved ?Abdominal Compartment syndrome; ruled out Hyperkalemia, resolved Discharge Planning: - need outpatient f/u for untreated HCV - patient need to follow up with his network project manager within a week or schedule outpatient within 10 days after d/c. - Need BMP one week after discharge and continue same other plans and medications. - Life Vest prior to discharge CURRENT MEDICATIONS - reviewed. ICENOW ADMINISTRATOR Associated attestation - Dianna Barrett MD - 12/10/2019 1:12 PM CSTI discussed this patient in detail with resident physician Dr. Morrison, including the patients symptoms, exam findings, assessment and plan. I independently performed relevant portions of history and exam and jointly participated in the decision making process on 12/10/2019. Patient continues to have extensive volume overload. We are diuresing patient with caution as his current hospitalization was already complicated by ABDIAZIZ. PT is on-board-- plan to have PT work with patient on positioning including assessing whether patient can lay flat. Care Management working on Life Vest for patient. Please see residents Progress Note for details. Dianna Barrett MD, MPH [facility] Internal Medicine Christian Oates MD - 12/09/2019 6:50 PM CST Cardiology progress Note 12/09/2019 18:50 Bob Dhaliwal is a 54 year old male with history of HCV cirrhosis, Acute on chronic systolic HF ( EF 20-25%) NYHA class IV stage C, moderate aortic stenosis, COPD (on 2L home O2), HTN, tobacco use, and polysubstance abuse admitted from OSH for decompensated HCV cirrhosis. Troponin elevated 0.099. Telemetry notes frequent PVCs Patient denies chest pain, palpitation, dizziness syncope. Patient states feeling better since admission, body swelling has improved. ROS: 12 points ROS were obtained and negative except mentioned in HPI Past Medical History: Diagnosis Date CHF (congestive heart failure) COPD (chronic obstructive pulmonary disease) DM (diabetes mellitus) HTN (hypertension) Past Surgical History: Procedure Laterality Date ESOPHAGOGASTRODUODENOSCOPY N/A 12/04/2019 Surgeon: Chivo Vargas MD; Location: Endoscopy ([facility]) OR Location Family History Problem Relation Age of Onset Other - see comments Mother Epilepsy No Significant Medical Problems Father Social History Socioeconomic History Marital status: Single Spouse name: Not on file Number of children: Not on file Years of education: Not on file Highest education level: Not on file Occupational History Not on file Social Needs Financial resource strain: Not on file Food insecurity: Worry: Not on file Inability: Not on file Transportation needs: Medical: Not on file Non-medical: Not on file Tobacco Use Smoking status: Current Some Day Smoker Types: Cigarettes Smokeless tobacco: Never Used Tobacco comment: 2 packs a week Substance and Sexual Activity Alcohol use: No Drug use: Yes Types: Marijuana, Methamphetamines, Benzodiazepines Sexual activity: Not on file Lifestyle Physical activity: Days per week: Not on file Minutes per session: Not on file Stress: Not on file Relationships Social connections: Talks on phone: Not on file Gets together: Not on file Attends confucianist service: Not on file Active member of club or organization: Not on file Attends meetings of clubs or organizations: Not on file Relationship status: Not on file Intimate partner violence: Fear of current or ex partner: Not on file Emotionally abused: Not on file Physically abused: Not on file Forced sexual activity: Not on file Other Topics Concern Not on file Social History Narrative Not on file No Known Allergies Prior to Admission medications Medication Sig Start Date End Date Taking? Authorizing Provider digoxin 250 mcg (0.25 mg) tablet Take 250 mcg by mouth daily. Yes Doctor Unassigned, [place] furosemide (LASIX) 40 mg tablet Take 40 mg by mouth every morning and evening. Yes Doctor Unassigned, [place] sacubitril-valsartan (ENTRESTO) 24-26 mg tablet Take 1 tablet by mouth 2 (two) times daily. Yes Doctor Unassigned, [place] albuterol 90 mcg/actuation inhaler Inhale 2 Puffs every 6 (six) hours as needed for Wheezing or Shortness of Breath. 06/15/19 Moustapha Ferrer MD ipratropium 17 mcg/actuation inhaler Inhale 2 Puffs 3 (three) times daily. Moustapha Ferrer MD predniSONE 10 mg tablet Take 3 tablets by mouth daily. 06/15/19 Christian Mejia MD temazepam 15 mg capsule Take 1 capsule by mouth at bedtime as needed for Insomnia. 10/19/17 Saul Woodall MBBS Current Facility-Administered Medications: [START ON 12/10/2019] magnesium oxide (MAG-OX 400) tablet 800 mg, 800 mg, Oral, DAILY, Ana Morrison MD thiamine (VITAMIN B1) tablet 100 mg, 100 mg, Oral, DAILY, Julio Urrutia MD, 100 mg at 12/09/19 0834 furosemide (LASIX) injection 60 mg, 60 mg, Slow IV Push, Q12H, Moustapha Ferrer MD, 60 mg at 12/09/19 0833 SERTraline (ZOLOFT) tablet 25 mg, 25 mg, Oral, QHS, Moustapha Ferrer MD, 25 mg at 12/08/19 2134 lactulose (CEPHULAC) solution 30 mL, 30 mL, Oral, TID, Moustapha Ferrer MD, 30 mL at 12/09/19 1509 hydrOXYzine (ATARAX) tablet 10 mg, 10 mg, Oral, Q6HPRN, Maya Alatorre MD, 10 mg at 12/06/201922 ramelteon (ROZEREM) tablet 8 mg, 8 mg, Oral, QHS, aMya Alatorre MD, 8 mg at 12/08/19 2134 carvedilol (COREG) tablet 6.25 mg, 6.25 mg, Oral, BID MEALS, BrigidoHailey DO, 6.25 mg at12/09/19 1734 foLIC acid (FOLATE) tablet 1 mg, 1 mg, Oral, DAILY, Leda Alvarado DO, 1 mg at 12/09/19 0834 ipratropium-albuterol (DUONEB) 0.5 mg-3 mg(2.5 mg base)/3 mL nebulizer solution 3 mL, 3 mL, Inhalation, Q4H, Leda Alvarado DO, 3 mL at 12/09/19 1436 spironolactone (ALDACTONE) tablet 200 mg, 200 mg, Oral, DAILY, Leo Jones MD, 200 mg at 12/09/19 0833 dextrose 10% (D10W) bolus infusion 250 mL, 250 mL, IV Infusion, PRN - SEE INSTRUCTIONS, Junior Fofana DO heparin (porcine) injection 5,000 Units, 5,000 Units, Subcutaneous, Q12H, Junior Fofana DO, Stopped at 12/07/191999 nicotine (NICODERM) 21 mg/24 hr patch 1 Patch, 1 Patch, Topical, Q24H, Maya Alatorre MD, 1 Patch at 12/09/19 0604 Miconazole Nitrate (DERMAFUNGAL) 2 % ointment, , Topical, BID, Kandis Parada, triamcinolone acetonide (TRIDERM) 0.1 % cream, , Topical, DAILY, Kandis Parada DO aspirin chewable tablet 81 mg, 81 mg, Oral, DAILY, Moustapha Ferrer MD, 81 mg at 12/09/19 0833 acetaminophen-codeine (TYLENOL #3) 300-30 mg tablet 1 tablet, 1 tablet, Oral, Q4HPRN, Julio Wmoack, , 1 tablet at 12/09/19 0355 HYDROcodone-acetaminophen (NORCO 5) 5-325 mg tablet 1 tablet, 1 tablet, Oral, Q6HPRN, Julio Womack, , 1 tablet at 12/09/19 1024 Physical Examination: Temp: [36.4 C (97.6 F)-36.7 C (98 F)] Pulse: [69-76] Resp: [16-18] BP: (93-121)/(46-59) MAP (mmHg): [67] Intake/Output Summary (Last 24 hours) at 12/09/2019 1850 Last data filed at 12/09/2019 1400 Gross per 24 hour Intake 360 ml Output 3280 ml Net -2920 ml General: alert and oriented x2, no apparent distress HEENT: pupils equal, round, reactive to light Neck: full range of motion Lungs: no crackles, right lung reduced breath sounds and positive egophony Cardio: RRR, S1, S2 normal; no murmurs appreciated Abdomen: soft; non-tender; distended; normoactive bowel sounds : not examined Rectal: not examined Extremities: 3+edema with chronic venous stasis changes Skin: no rashes Neuro: cranial nerves II through XII grossly intact Labs/Imaging/Pathology - reviewed EKG : RBBB and bifascicular block, no baseline ECG to compare Echocardiography : Left Ventricle The left ventrical is severely dilated. LV mass index 183 g/m2 and RWT 0.32 consistent wtih severe eccentric LVH. Left ventricular systolic function is severely reduced. Ejection Fraction=20-25%. Diastolic dysfunction. Severe Inferior , anteroseptal and inferoseptal wall hypokinesis. There are regional wall motion abnormalities as specified. Right Ventricle The right ventricle is normal in size and function. There is normal right ventricular wall thickness. Atria The left atrium is severely dilated. Right atrial size is normal. Mitral Valve The mitral valve is normal. There is mild mitral regurgitation. Tricuspid Valve The tricuspid valve is normal. Estimated RA pressure is 0-5 mmHg. Insufficient Tricuspid regurgitation jet to estimate RVSP. Aortic Valve The aortic valve is mildly thickened and calcified. The mean aortic valve gradient measures 20.9 mmHg. The peak to peak aortic valve gradient measures 38.3 mmHg. Measured by the continuity equation, the aortic valve area is 1.4cm2. Moderate valvular aortic stenosis. Mild aortic regurgitation. Pulmonic Valve The pulmonic valve is not well visualized. Page 1 of 2 11/27/2019 Great Vessels The aortic root is normal size. Pericardium/Pleural There is no pericardial effusion. The pericardium appears normal. Summary Statements A two-dimensional transthoracic echocardiogram with M-mode and Doppler was performed. The study was technically adequate. Compared to prior study, changes are noted. Left ventricular systolic function is severely reduced. Ejection Fraction=20-25% . Diastolic dysfunction. There are regional wall motion abnormalities as specified. Moderate valvular aortic stenosis with mild aortic regurgitation. The left atrium is severely dilated. Cardiac Cath : None available Assessment/Plan: Bob Dhaliwal is a 54 year old male admitted with: 1. Decompensated cirrhosis with large ascites, s/p 11 L paracentesis 2. Acute renal failure ( intravascular depleted with third spacing due to low albumin) mixed of HRS and pre-renal - resolved 3. Acute on chronic HFrEF 20-25% NYHA class Iv stage C 4. PVC's frequent 5. Moderate to large R pleural effusion 6. Medical noncompliance, hx of polysubstance abuse Developed acute renal failure in the setting of IV diuresis and paracentesis, now kidney function improved Today 12/05/2019 , he went to technology lab teacher and was not able to lay flat therefore procedure was cancelled. Recommendations: Continue current management with aspirin 81 mg , coreg , spironolactone C/w lasix to 60 mg IV ( can use different dose of diuresis or oral ) but try to archive net negative of 1.5- 2 liters a day, monitor I&O daily weight , monitor creatine and avoid hypotension. Patient was not able to lay flat for C, therefore continue diuresis and once able to lay fat will proceed. Place on telemetry ( has NSVT) please keep MG > 2 and K>4 Patient will need LifeVest before leaving the hospital Patient was seen and examined with Faculty Dr Jodie Oates MD Dry Room Operator [place] ADMINISTRATOR Associated attestation - Justin Feliciano MD - 12/10/2019 7:12 PM CSTI personally examined the patient on 12/10/[address] Oates's note as written. I actively participated in the decision-making process. Dave Valverde RN - 12/09/2019 3:33 PM CSTCare Management Note 12/09/2019 3:33 PM Clinicals and zoll order form sent. Orders verified with Dr Feliciano on cardiology team for use of default settings. Pending response from [employer]. Dave Valverde RN BSN not for patient use [email or web address] Carlita Bains PTA - 12/09/2019 9:26 AM CSTPhysical Therapy Progress Note: Recommendations: Primary discharge plan: home with 19/06 family supervision and home health PT Equipment recommendations: Rolling Walker PAIN: -Pain Location: abdomen -Pain rating before treatment: does not rate, After treatment: does not rate -Pain Management: Nursing Notified PRECAUTIONS: Weight Bearing Precaution: NA General Precautions: General, Fall Bracing/Cast present or required:N/A S: Patient agreeable to working with PT. O: Patient met Up in chair. Patient seen for the following: Bed mobility: Not tested Transfers: Sit to stand: SBA/Setup using Rolling Walker Stand to sit: SBA/Setup using Rolling Walker Static/dynamic standing balance: Fair Verbal cueing provided for correct hand placement and correct use of AD Therapeutic exercise: patient educated in Energy conservation, Fall prevention, General strengthening , Positioning and Safety awareness., instructed patient in the following: ankle pumps, long arc quads, seated marching, patient/caregiver verbalizes understanding of instructions. After session, patient Up in chair and call fragoso provided. A: Patient tolerated session fair. Patient progressing toward goals #1, #2, #3. P: PT will - progress gait distance. Total Timed Tx Codes in Minutes: 24 Min Total Treatment Time in Minutes: 24 Min Carlita Mast PTA Pager #: [phone] Supervising PT Caesar Lara na Morrison MD - 12/09/2019 7:16 AM CST PGY- 1 [facility] Team Progress Note Date of Service: 12/09/2019 07:16 Chief Complaint: SOB and abdominal swelling 24-HOUR EVENTS: No acute events overnight SUBJECTIVE: Feels well, but tired as he has just woken up. States that he has been sleeping in the recliner because he gets anxiety when lying flat, but denies SOB. States he has been like this for a long time andwants us to "just do the procedure ([facility] )." PHYSICAL EXAM: Temp: [36.3 C (97.4 F)-36.7 C (98 F)] Pulse: [69-77] Resp: [16-18] BP: (93-127)/(46-60) MAP (mmHg): [61-67] Intake/Output Summary (Last 24 hours) at 12/09/2019 0724 Last data filed at 12/08/2019 2341 Gross per 24 hour Intake Output 3080 ml Net -3080 ml Tele: Sinus w/ IVCD, 7 beats NSVT once in AM, trending 60's-70's. No PVC's or Vtach noted like yesterday. General: alert and oriented x 4; in no distress Lungs: CTAB Cardio: RRR; no murmurs, rubs or gallops Abdomen: distended, soft; non TTP; normoactive bowel sounds Extremities: b/l 2+ LE pitting edema with venous stasis dermatitis LABS/IMAGING - reviewed, pertinent results as below: Hg 10.1 Na 134 K 4.1 Cr 0.77 Mg 1.6 ASSESSMENT/PLAN Bob Dhaliwal is a 54 year old male with PMH as listed above, admitted to the hospital with: Decompensated HFrEF(EF 20-25%), Regional WMA PVCs- 10% frequency Prolonged QTc Moderate aortic stenosis HTN LHC not performed as patient cannot lay flat. Patient will need a life vest prior to discharge. 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 Can consider transplant eval if his EF recovers. Continues to have good diuresis, so will hold off on therapeutic paracentesis. - Lasix + Spironolactone daily (goal of net negative 1-2 L daily) - Lactulose 30 QID (titrate to 3-4 BM's daily) R sided pleural effusion- likely hepatic hydrothorax Reported COPD - No PFTs on file Tobacco use/polysubstance use Chronic Hypoxic respiratory failure Stable pleural effusion. - c/w diuresis - c/w duonebs + pulmonary toilet + IS - nicotine patch Insomnia Anxiety/Agitation - ramelteon QHS - c/w thiamine + folate - c/w zoloft QHS PAIN: Improved Tylenol and [place] Prophylaxis: DVT- Contraindicated: Thrombocytopenia Stress Ulcer: no indication for prophylaxis Code Status: addressed: full code Disposition Anticipated Discharge Date : TBD Barriers to Discharge: IV diuresis Ana Morrison MD Internal Medicine, PGY1 [facility] Team Pager#: [phone] END OF DAILY PROGRESS NOTE Hospital Course Bob Dhaliwal is a 54 y/o male with 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 On admission heunderwent large volume paracentesis x 2 (w/11 L removed) - studies negative for SBP. He was concurrently receiving diuretic therapy for volume overload presumable 2/2 decompensated cirrhosis and HFrEF exacerbation. Hospital course was c/b oliguric ABDIAZIZ. He was placed on a short diuretic holiday and given albumin w/ subsequent improvement in renal function and UOP. Patient was transferred to MICU for closer monitoring of intraabdominal pressure due to concerns for abdominal compartment syndrome. Intraabdominal pressures downtrended. Restarted on aggressive diuretic regimen, once renal function improved. Of note patient w/ frequent PVC's, NSVT x 1, and mild troponin leak. EF similar to 04/2019, but decreased from 2017. Started on coreg per cardiology recs. Stable for TTF. EGD unremarkable. LHC not performed as patient cannot lay flat. Patient actively diuresing well. Chronic/Resolved Conditions: HTN Oliguric ABDIAZIZ, resolved Hyponatremia, resolved Hypochloremia, resolved Hepatic Encephalopathy, resolved ?Abdominal Compartment syndrome; ruled out Hyperkalemia, resolved Discharge Planning: - need outpatient f/u for untreated HCV - patient need to follow up with his network project manager within a week or schedule outpatient within 10 days after d/c. - Need BMP one week after discharge and continue same other plans and medications. - Life Vest prior to discharge CURRENT MEDICATIONS - reviewed. [place] ADMINISTRATOR Associated attestation - Dianna Barrett MD - 12/09/2019 1:20 PM CSTI discussed this patient in detail with resident physician Dr. Morrison, including the patients symptoms, exam findings, assessment and plan. I independently performed relevant portions of history and exam and jointly participated in the decision making process on 12/09/2019. Please see resident s Progress Note for details. Dianna Brarett MD, MPH [facility] Internal Medicine Alfredo Gaines MD - 12/08/2019 8:53 PM CST Cardiology progress Note 12/08/2019 20:54 Bob Dhaliwal is a 54 year old male with history of HCV cirrhosis, Acute on chronic systolic HF ( EF 20-25%) NYHA class IV stage C, moderate aortic stenosis, COPD (on 2L home O2), HTN, tobacco use, and polysubstance abuse admitted from OSH for decompensated HCV cirrhosis. Troponin elevated 0.099. Telemetry notes frequent PVCs Patient denies chest pain, palpitation, dizziness syncope. Endorses sob, orthopnea, abd distention. ROS: 12 points ROS were obtained and negative except mentioned in HPI Past Medical History: Diagnosis Date CHF (congestive heart failure) COPD (chronic obstructive pulmonary disease) DM (diabetes mellitus) HTN (hypertension) Past Surgical History: Procedure Laterality Date ESOPHAGOGASTRODUODENOSCOPY N/A 12/04/2019 Surgeon: Chivo Vargas MD; Location: Endoscopy ([facility]) OR Location Family History Problem Relation Age of Onset Other - see comments Mother Epilepsy No Significant Medical Problems Father Social History Socioeconomic History Marital status: Single Spouse name: Not on file Number of children: Not on file Years of education: Not on file Highest education level: Not on file Occupational History Not on file Social Needs Financial resource strain: Not on file Food insecurity: Worry: Not on file Inability: Not on file Transportation needs: Medical: Not on file Non-medical: Not on file Tobacco Use Smoking status: Current Some Day Smoker Types: Cigarettes Smokeless tobacco: Never Used Tobacco comment: 2 packs a week Substance and Sexual Activity Alcohol use: No Drug use: Yes Types: Marijuana, Methamphetamines, Benzodiazepines Sexual activity: Not on file Lifestyle Physical activity: Days per week: Not on file Minutes per session: Not on file Stress: Not on file Relationships Social connections: Talks on phone: Not on file Gets together: Not on file Attends confucianist service: Not on file Active member of club or organization: Not on file Attends meetings of clubs or organizations: Not on file Relationship status: Not on file Intimate partner violence: Fear of current or ex partner: Not on file Emotionally abused: Not on file Physically abused: Not on file Forced sexual activity: Not on file Other Topics Concern Not on file Social History Narrative Not on file No Known Allergies Prior to Admission medications Medication Sig Start Date End Date Taking? Authorizing Provider digoxin 250 mcg (0.25 mg) tablet Take 250 mcg by mouth daily. Yes Doctor Unassigned, [place] furosemide (LASIX) 40 mg tablet Take 40 mg by mouth every morning and evening. Yes Doctor Unassigned, [place] sacubitril-valsartan (ENTRESTO) 24-26 mg tablet Take 1 tablet by mouth 2 (two) times daily. Yes Doctor Unassigned, [place] albuterol 90 mcg/actuation inhaler Inhale 2 Puffs every 6 (six) hours as needed for Wheezing or Shortness of Breath. 06/15/19 Moustapha Ferrer MD ipratropium 17 mcg/actuation inhaler Inhale 2 Puffs 3 (three) times daily. Moustapha Ferrer MD predniSONE 10 mg tablet Take 3 tablets by mouth daily. 06/15/19 Christian Mejia MD temazepam 15 mg capsule Take 1 capsule by mouth at bedtime as needed for Insomnia. 10/19/17 Saul Woodall MBBS Current Facility-Administered Medications: thiamine (VITAMIN B1) tablet 100 mg, 100 mg, Oral, DAILY, Julio Urrutia MD, 100 mg at 12/08/19 1144 furosemide (LASIX) injection 60 mg, 60 mg, Slow IV Push, Q12H, Moustapha Ferrer MD, 60 mg at 12/08/19 0945 SERTraline (ZOLOFT) tablet 25 mg, 25 mg, Oral, QHS, Moustapha Ferrer MD, 25 mg at 12/07/19 2137 lactulose (CEPHULAC) solution 30 mL, 30 mL, Oral, TID, Moustapha Ferrer MD, 30 mL at 12/08/19 0945 hydrOXYzine (ATARAX) tablet 10 mg, 10 mg, Oral, Q6HPRN, Maya Alatorre MD, 10 mg at ramelteon (ROZEREM) tablet 8 mg, 8 mg, Oral, QHS, Maya Alatorre MD, 8 mg at 12/07/19 2137 carvedilol (COREG) tablet 6.25 mg, 6.25 mg, Oral, BID MEALS, Hailey Fofana DO, 6.25 mg at12/08/19 0945 foLIC acid (FOLATE) tablet 1 mg, 1 mg, Oral, DAILY, Leda Alvarado DO, 1 mg at 12/08/19 0945 ipratropium-albuterol (DUONEB) 0.5 mg-3 mg(2.5 mg base)/3 mL nebulizer solution 3 mL, 3 mL, Inhalation, Q4H, Leda Alvarado DO, 3 mL at 12/08/19 1811 spironolactone (ALDACTONE) tablet 200 mg, 200 mg, Oral, DAILY, Leo Jones MD, 200 mg at 12/08/19 0945 dextrose 10% (D10W) bolus infusion 250 mL, 250 mL, IV Infusion, PRN - SEE INSTRUCTIONS, Junior Fofana DO heparin (porcine) injection 5,000 Units, 5,000 Units, Subcutaneous, Q12H, Junior Fofana DO, Stopped at 12/07/191999 nicotine (NICODERM) 21 mg/24 hr patch 1 Patch, 1 Patch, Topical, Q24H, Maya Alatorre MD, 1 Patch at 12/08/19 0635 Miconazole Nitrate (DERMAFUNGAL) 2 % ointment, , Topical, BID, Kandis Parada DO triamcinolone acetonide (TRIDERM) 0.1 % cream, , Topical, DAILY, Kandis Parada DO aspirin chewable tablet 81 mg, 81 mg, Oral, DAILY, Moustapha Ferrer MD, 81 mg at 12/08/19 0945 acetaminophen-codeine (TYLENOL #3) 300-30 mg tablet 1 tablet, 1 tablet, Oral, Q4HPRN, Julio Womack DO, 1 tablet at 12/08/19 0635 HYDROcodone-acetaminophen (NORCO 5) 5-325 mg tablet 1 tablet, 1 tablet, Oral, Q6HPRN, Julio Womack DO, 1 tablet at 12/08/19 1144 Physical Examination: Temp: [36.3 C (97.4 F)-36.7 C (98 F)] Pulse: [69-96] Resp: [18] BP: (93-127)/(46-62) MAP (mmHg): [61] Intake/Output Summary (Last 24 hours) at 12/08/20192053 Last data filed at 12/08/2019 1500 Gross per 24 hour Intake Output 3580 ml Net -3580 ml General: alert and oriented x2, no apparent distress HEENT: pupils equal, round, reactive to light Neck: full range of motion Lungs: no crackles, right lung reduced breath sounds and positive egophony Cardio: RRR, S1, S2 normal; no murmurs appreciated Abdomen: soft; non-tender; distended; normoactive bowel sounds : not examined Rectal: not examined Extremities: 3+edema with chronic venous stasis changes Skin: no rashes Neuro: cranial nerves II through XII grossly intact Labs/Imaging/Pathology - reviewed EKG : RBBB and bifascicular block, no baseline ECG to compare Echocardiography : Left Ventricle The left ventrical is severely dilated. LV mass index 183 g/m2 and RWT 0.32 consistent wtih severe eccentric LVH. Left ventricular systolic function is severely reduced. Ejection Fraction=20-25%. Diastolic dysfunction. Severe Inferior , anteroseptal and inferoseptal wall hypokinesis. There are regional wall motion abnormalities as specified. Right Ventricle The right ventricle is normal in size and function. There is normal right ventricular wall thickness. Atria The left atrium is severely dilated. Right atrial size is normal. Mitral Valve The mitral valve is normal. There is mild mitral regurgitation. Tricuspid Valve The tricuspid valve is normal. Estimated RA pressure is 0-5 mmHg. Insufficient Tricuspid regurgitation jet to estimate RVSP. Aortic Valve The aortic valve is mildly thickened and calcified. The mean aortic valve gradient measures 20.9 mmHg. The peak to peak aortic valve gradient measures 38.3 mmHg. Measured by the continuity equation, the aortic valve area is 1.4cm2. Moderate valvular aortic stenosis. Mild aortic regurgitation. Pulmonic Valve The pulmonic valve is not well visualized. Page 1 of 2 11/27/2019 Great Vessels The aortic root is normal size. Pericardium/Pleural There is no pericardial effusion. The pericardium appears normal. Summary Statements A two-dimensional transthoracic echocardiogram with M-mode and Doppler was performed. The study was technically adequate. Compared to prior study, changes are noted. Left ventricular systolic function is severely reduced. Ejection Fraction=20-25% . Diastolic dysfunction. There are regional wall motion abnormalities as specified. Moderate valvular aortic stenosis with mild aortic regurgitation. The left atrium is severely dilated. Cardiac Cath : None available Assessment/Plan: Bob Dhaliwal is a 54 year old male admitted with: 1. Decompensated cirrhosis with large ascites, s/p 11 L paracentesis 2. Acute renal failure ( intravascular depleted with third spacing due to low albumin) mixed of HRS and pre-renal 3. Acute on chronic HFrEF 20-25% NYHA class Iv stage C 4. PVC's frequent 5. Moderate to large R pleural effusion 6. Medical noncompliance, hx of polysubstance abuse Developed acute renal failure in the setting of IV diuresis and paracentesis, now kidney function improved Today 12/05/2019 , he went to technology lab teacher and was not able to lay flat therefore procedure was cancelled. Recommendations: Continue current management with aspirin 81 mg , coreg , spironolactone Increase lasix to 60 mg IV ( can use different dose of diuresis or oral ) but try to archive net negative of 1.5- 2 liters a day, monitor I&O daily weight , monitor creatine and avoid hypotension. Consider repeat abdominal US to evaluate the need for paracentesis ( can do small amount to avoidrenal failure , and may use albumin) Patient was not able to lay flat for LHC, therefore continue diuresis and once able to lay fat will proceed. Place on telemetry ( has NSVT) please keep MG > 2 and K>4 Patient will need LifeVest before leaving the hospital Patient was seen and examined with Faculty Dr Jodie Gaines MD General hr leader [place] ADMINISTRATOR Associated attestation - Justin Feliciano MD - 12/09/2019 5:49 PM CSTI personally examined the patient on 12/09/[address] Gaines's note as written. I actively participated in the decision-making process. Julio Urrutia MD - 12/08/2019 7:12 AM CST PGY- 1 [facility] Team Progress Note Date of Service: 12/08/2019 07:12 Chief Complaint: SOB and abdominal swelling 24-HOUR EVENTS: No acute events overnight SUBJECTIVE: Patient reports feeling well this morning. He prefers to sleep in the chair versus the bed because he is unable to lie flat. No other acute complaints. PHYSICAL EXAM: Vitals: 12/07/19 2209 12/07/19 2219 12/07/19 2333 12/08/19 0358 BP: 120/62 103/55 Pulse: 96 88 76 81 Resp: 18 18 18 18 Temp: 36.6 C (97.8 F) 36.3 C (97.4 F) TempSrc: Oral Oral SpO2: 94% 98% 95% 95% Weight: Height: Tele: Sinus 1' AVB, IVCD 70, 1-3x PVC per minute, 5 beat Vtach @ 22:59, trend 70 -80s General: alert and oriented x 4; in no distress Lungs: CTAB Cardio: RRR; no murmurs, rubs or gallops Abdomen: distended, soft; non TTP; normoactive bowel sounds, tympanic Extremities: b/l 2+ LE pitting edema with venous stasis dermatitis LABS/IMAGING - reviewed, pertinent results as below: Reviewed ASSESSMENT/PLAN Bob Dhaliwal is a 54 year old male with PMH as listed above, admitted to the hospital with: Decompensated HFrEF(EF 20-25%), Regional WMA PVCs- 10% frequency Prolonged QTc Moderate aortic stenosis HTN LHC not performed as patient cannot lay flat. Patient will need a life vest prior to discharge. 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 Can consider transplant eval if his EF recovers. Continues to have good diuresis. May consider repeat therapeutic para (small amount) to avoid renal injury and may use albumin. - Lasix + Spironolactone daily (goal of net negative 1-2 L daily) - lactulose 30 QID (titrate to 3-4 BM's daily) R sided pleural effusion- likely hepatic hydrothorax Reported COPD - No PFTs on file Tobacco use/polysubstance use Chronic Hypoxic respiratory failure Stable pleural effusion. - c/w diuresis - c/w duonebs + pulmonary toilet + IS - nicotine patch Insomnia Anxiety/Agitation - ramelteon QHS - c/w thiamine + folate - c/w zoloft QHS PAIN: Improved Tylenol and [place] Prophylaxis: DVT- Contraindicated: Thrombocytopenia Stress Ulcer: no indication for prophylaxis Code Status: addressed: full code Disposition Anticipated Discharge Date : TBD Barriers to Discharge: IV diuresis Jean Carlos Urrutia MD Internal Medicine PGY-1 [facility] Team Pager #: [phone] END OF DAILY PROGRESS NOTE Hospital Course Bob Dhaliwal is a 54 y/o male with 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 On admission heunderwent large volume paracentesis x 2 (w/11 L removed) - studies negative for SBP. He was concurrently receiving diuretic therapy for volume overload presumable 2/2 decompensated cirrhosis and HFrEF exacerbation. Hospital course was c/b oliguric ABDIAZIZ. He was placed on a short diuretic holiday and given albumin w/ subsequent improvement in renal function and UOP. Patient was transferred to MICU for closer monitoring of intraabdominal pressure due to concerns for abdominal compartment syndrome. Intraabdominal pressures downtrended. Restarted on aggressive diuretic regimen, once renal function improved. Of note patient w/ frequent PVC's, NSVT x 1, and mild troponin leak. EF similar to 04/2019, but decreased from 2017. Started on coreg per cardiology recs. Stable for TTF. EGD unremarkable. LHC not performed as patient cannot lay flat. Patient actively diuresing well. Chronic/Resolved Conditions: HTN Oliguric ABDIAZIZ, resolved Hyponatremia, resolved Hypochloremia, resolved Hepatic Encephalopathy, resolved ?Abdominal Compartment syndrome; ruled out Hyperkalemia, resolved Discharge Planning: - need outpatient f/u for untreated HCV - patient need to follow up with his network project manager within a week or schedule outpatient within 10 days after d/c. - Need BMP one week after discharge and continue same other plans and medications. - Life Vest prior to discharge CURRENT MEDICATIONS - reviewed. [place] ADMINISTRATOR Associated attestation - Dianna Barrett MD - 12/08/2019 4:15 PM CSTI discussed this patient in detail with resident physician Dr. Urrutia, including the patients symptoms, exam findings, assessment and plan. I independently performed relevant portions of history andexam and jointly participated in the decision making process on 12/08/2019. Please see residents Progress Note for details. Dianna Barrett MD, MPH [facility] Internal Medicine Moustapha Ferrer MD - 12/07/2019 6:35 AM CST [facility]- [facility] Note Date of Service: 12/07/2019 06:35 Chief Complaint: SOB and abdominal swelling 24-HOUR EVENTS: NAEO SUBJECTIVE: Patient is doing better this morning. He slept better with the zoloft. His breathing is also better.Explained to patient he was having occasionally having irregular heart rhythms and patient states hehas been having that for years. Patient reiterates he still wants to be a full code. PHYSICAL EXAM: Vitals: 12/07/19 0031 12/07/19 0337 12/07/19 0349 12/07/19 0400 BP: 117/58 Pulse: 74 Resp: Temp: 36.6 C (97.8 F) TempSrc: Oral SpO2: 99% 96% 97% 96% Weight: Height: Tele: SR, IVCD, Alarms: bigeminy, 10 or more PVCs (PVC rate 0-2/min), 5 beats Vtach at 2333, NSVT for 3 beats; Trending 70s-80s General: alert and oriented x 4; in no distress Lungs: crackles Cardio: S1, S2 normal; no murmurs, rubs or gallops, tachycardic Abdomen: distended, soft; non TTP; normoactive bowel sounds Extremities: b/l LE pitting edema with venous stasis dermatitis LABS/IMAGING - reviewed, pertinent results as below: Reviewed Xr Chest 1 Vw Result Date: 12/06/2019 Stable right pleural effusion. Cardiomegaly with decrease in pulmonary edema. Preliminary Report Dictated by Resident: Sony Escobedo I, Roselyn Muñoz MD., have reviewed this study and agree with the abovereport. ASSESSMENT/PLAN Bob Dhaliwal is a 54 year old male with PMH as listed above, admitted to the hospital with: Decompensated HFrEF(EF 20-25%), Regional WMA PVCs- 10% frequency, NSVT (14 beats) Prolonged QTc Moderate aortic stenosis HTN LHC not performed as patient cannot lay flat. Patient will need a life vest prior to discharge. - coreg 6.25 mg bid; consider uptitrating as tolerated - ASA 81 mg daily - holding entresto + digoxin at this time. 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 Has been having good UOP on current diuresis. Will avoid large volume paracentesis. Liver Transplant candidacy depends on his cardiac function. Can consider transplant eval if his EF recovers. - Lasix + Spironolactone daily (goal of net negative 1-2 L daily) - lactulose 30 QID (titrate to 3-4 BM's daily) R sided pleural effusion- likely hepatic hydrothorax Reported COPD - No PFTs on file Tobacco use/polysubstance use Chronic Hypoxic respiratory failure Stable pleural effusion. - c/w diuresis - c/w duonebs + pulmonary toilet + IS - nicotine patch Insomnia Anxiety/Agitation - ramelteon QHS - c/w thiamine + folate - c/w zoloft QHS PAIN: Improved Tylenol and [place] Prophylaxis: DVT- Contraindicated: Thrombocytopenia Stress Ulcer: no indication for prophylaxis Code Status: addressed: full code Disposition Anticipated Discharge Date : TBD Barriers to Discharge: IV diuresis Moustapha Ferrer MD Internal Medicine, PGY-1 [facility] Team Pager#[phone] END OF DAILY PROGRESS NOTE Hospital Course Bob Dhaliwal is a 54 y/o male with 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 On admission heunderwent large volume paracentesis x 2 (w/11 L removed) - studies negative for SBP. He was concurrently receiving diuretic therapy for volume overload presumable 2/2 decompensated cirrhosis and HFrEF exacerbation. Hospital course was c/b oliguric ABDIAZIZ. He was placed on a short diuretic holiday and given albumin w/ subsequent improvement in renal function and UOP. Patient was transferred to MICU for closer monitoring of intraabdominal pressure due to concerns for abdominal compartment syndrome. Intraabdominal pressures have been downtrending. Restarted on aggressive diuretic regimen, once renal function improved. Of note patient w/frequent PVC's, NSVT x 1, and mild troponin leak. EF similar to 04/2019, but decreased from 2017. Started on coreg per cardiology recs. Stable for TTF. Patient diuresing well. EGD unremarkable. LHC not performed as patient cannot lay flat. Chronic/Resolved Conditions: HTN Oliguric ABDIAZIZ, resolved Hyponatremia, resolved Hypochloremia, resolved Hepatic Encephalopathy, resolved ?Abdominal Compartment syndrome; ruled out Hyperkalemia, resolved Discharge Planning: - need outpatient f/u for untreated HCV - patient need to follow up with his network project manager within a week or schedule outpatient within 10 days after d/c. - Need BMP one week after discharge and continue same other plans and medications. CURRENT MEDICATIONS - reviewed. ICENOW ADMINISTRATOR Associated attestation - Dianna Barrett MD - 12/07/2019 6:00 PM CSTI discussed this patient in detail with resident physician Dr. Ferrer, including the patients symptoms, exam findings, assessment and plan. I independently performed relevant portions of history and exam and jointly participated in the decision making process on 12/07/2019. Please see residents Progress Note for details. Dianna Barrett MD, MPH [facility] Internal Medicine Alfredo Gaines MD - 12/06/2019 2:03 PM CST Cardiology progress Note 12/06/2019 14:03 Bob Dhaliwal is a 54 year old male with history of HCV cirrhosis, Acute on chronic systolic HF ( EF 20-25%) NYHA class IV stage C, moderate aortic stenosis, COPD (on 2L home O2), HTN, tobacco use, and polysubstance abuse admitted from OSH for decompensated HCV cirrhosis. Troponin elevated 0.099. Telemetry notes frequent PVCs Patient denies chest pain, palpitation, dizziness syncope. Endorses sob, orthopnea, abd distention. ROS: 12 points ROS were obtained and negative except mentioned in HPI Past Medical History: Diagnosis Date CHF (congestive heart failure) COPD (chronic obstructive pulmonary disease) DM (diabetes mellitus) HTN (hypertension) Past Surgical History: Procedure Laterality Date ESOPHAGOGASTRODUODENOSCOPY N/A 12/04/2019 Surgeon: Chivo Vargas MD; Location: Endoscopy ([facility]) OR Location Family History Problem Relation Age of Onset Other - see comments Mother Epilepsy No Significant Medical Problems Father Social History Socioeconomic History Marital status: Single Spouse name: Not on file Number of children: Not on file Years of education: Not on file Highest education level: Not on file Occupational History Not on file Social Needs Financial resource strain: Not on file Food insecurity: Worry: Not on file Inability: Not on file Transportation needs: Medical: Not on file Non-medical: Not on file Tobacco Use Smoking status: Current Some Day Smoker Types: Cigarettes Smokeless tobacco: Never Used Tobacco comment: 2 packs a week Substance and Sexual Activity Alcohol use: No Drug use: Yes Types: Marijuana, Methamphetamines, Benzodiazepines Sexual activity: Not on file Lifestyle Physical activity: Days per week: Not on file Minutes per session: Not on file Stress: Not on file Relationships Social connections: Talks on phone: Not on file Gets together: Not on file Attends confucianist service: Not on file Active member of club or organization: Not on file Attends meetings of clubs or organizations: Not on file Relationship status: Not on file Intimate partner violence: Fear of current or ex partner: Not on file Emotionally abused: Not on file Physically abused: Not on file Forced sexual activity: Not on file Other Topics Concern Not on file Social History Narrative Not on file No Known Allergies Prior to Admission medications Medication Sig Start Date End Date Taking? Authorizing Provider digoxin 250 mcg (0.25 mg) tablet Take 250 mcg by mouth daily. Yes Doctor Unassigned, [place] furosemide (LASIX) 40 mg tablet Take 40 mg by mouth every morning and evening. Yes Doctor Unassigned, [place] sacubitril-valsartan (ENTRESTO) 24-26 mg tablet Take 1 tablet by mouth 2 (two) times daily. Yes Doctor Unassigned, [place] albuterol 90 mcg/actuation inhaler Inhale 2 Puffs every 6 (six) hours as needed for Wheezing or Shortness of Breath. 06/15/19 Moustapha Ferrer MD ipratropium 17 mcg/actuation inhaler Inhale 2 Puffs 3 (three) times daily. Moustapha Ferrer MD predniSONE 10 mg tablet Take 3 tablets by mouth daily. 06/15/19 Christian Mejia MD temazepam 15 mg capsule Take 1 capsule by mouth at bedtime as needed for Insomnia. 10/19/17 Saul Woodall MBBS Current Facility-Administered Medications: furosemide (LASIX) injection 60 mg, 60 mg, Slow IV Push, Q12H, Moustapha Ferrer MD magnesium sulfate in water 2 gram/50 mL (4 %) 2,000 mg piggyback, 2,000 mg , IV Infusion, ONCE, Moustapha Ferrer MD SERTraline (ZOLOFT) tablet 25 mg, 25 mg, Oral, QHS, Moustapha Ferrer MD lactulose (CEPHULAC) solution 30 mL, 30 mL, Oral, TID, Moustapha Ferrer MD, 30 mL at 12/06/19 1337 hydrOXYzine (ATARAX) tablet 10 mg, 10 mg, Oral, Q6HPRN, Maya Alatorre MD, 10 mg at 12/06/201237 ramelteon (ROZEREM) tablet 8 mg, 8 mg, Oral, QHS, Maya Alatorre MD, 8 mg at 12/05/192020 carvedilol (COREG) tablet 6.25 mg, 6.25 mg, Oral, BID MEALS, Hailey Fofana DO, 6.25 mg at12/06/19 0843 foLIC acid (FOLATE) tablet 1 mg, 1 mg, Oral, DAILY, Leda Alvarado DO, 1 mg at 12/06/19 0844 ipratropium-albuterol (DUONEB) 0.5 mg-3 mg(2.5 mg base)/3 mL nebulizer solution 3 mL, 3 mL, Inhalation, Q4H, Leda Alvarado DO, 3 mL at 12/06/19 1035 spironolactone (ALDACTONE) tablet 200 mg, 200 mg, Oral, DAILY, Leo Jones MD, 200 mg at 12/06/19 0844 thiamine (VITAMIN B1) 100 mg in NaCl 0.9% (NS) piggyback, 100 mg, IV Piggyback, DAILY, Leda Alvarado DO, 100 mg at 12/06/19 0844 dextrose 10% (D10W) bolus infusion 250 mL, 250 mL, IV Infusion, PRN - SEE INSTRUCTIONS, Junior Fofana DO heparin (porcine) injection 5,000 Units, 5,000 Units, Subcutaneous, Q12H, Junior Fofana DO, Stopped at 12/05/19 0800 nicotine (NICODERM) 21 mg/24 hr patch 1 Patch, 1 Patch, Topical, Q24H, Maya Alatorre MD, 1 Patch at 12/06/19 0434 Miconazole Nitrate (DERMAFUNGAL) 2 % ointment, , Topical, BID, Kandis Parada DO triamcinolone acetonide (TRIDERM) 0.1 % cream, , Topical, DAILY, Kandis Parada DO aspirin chewable tablet 81 mg, 81 mg, Oral, DAILY, Moustapha Ferrer MD, 81 mg at 12/06/19 0844 acetaminophen-codeine (TYLENOL #3) 300-30 mg tablet 1 tablet, 1 tablet, Oral, Q4HPRN, Julio Womack, , 1 tablet at 12/04/19 2131 HYDROcodone-acetaminophen (NORCO 5) 5-325 mg tablet 1 tablet, 1 tablet, Oral, Q6HPRN, Julio Womack, , 1 tablet at 12/06/19 1337 Physical Examination: Temp: [36.3 C (97.4 F)-36.7 C (98 F)] Pulse: [68-96] Resp: [18-21] BP: (115-132)/(55-87) MAP (mmHg): [68-74] Intake/Output Summary (Last 24 hours) at 12/06/2019 1403 Last data filed at 12/06/2019 0400 Gross per 24 hour Intake 150 ml Output 520 ml Net -370 ml General: alert and oriented x2, no apparent distress HEENT: pupils equal, round, reactive to light Neck: full range of motion Lungs: no crackles, right lung reduced breath sounds and positive egophony Cardio: RRR, S1, S2 normal; no murmurs appreciated Abdomen: soft; non-tender; distended; normoactive bowel sounds : not examined Rectal: not examined Extremities: 3+edema with chronic venous stasis changes Skin: no rashes Neuro: cranial nerves II through XII grossly intact Labs/Imaging/Pathology - reviewed EKG : RBBB and bifascicular block, no baseline ECG to compare Echocardiography : Left Ventricle The left ventrical is severely dilated. LV mass index 183 g/m2 and RWT 0.32 consistent wtih severe eccentric LVH. Left ventricular systolic function is severely reduced. Ejection Fraction=20-25%. Diastolic dysfunction. Severe Inferior , anteroseptal and inferoseptal wall hypokinesis. There are regional wall motion abnormalities as specified. Right Ventricle The right ventricle is normal in size and function. There is normal right ventricular wall thickness. Atria The left atrium is severely dilated. Right atrial size is normal. Mitral Valve The mitral valve is normal. There is mild mitral regurgitation. Tricuspid Valve The tricuspid valve is normal. Estimated RA pressure is 0-5 mmHg. Insufficient Tricuspid regurgitation jet to estimate RVSP. Aortic Valve The aortic valve is mildly thickened and calcified. The mean aortic valve gradient measures 20.9 mmHg. The peak to peak aortic valve gradient measures 38.3 mmHg. Measured by the continuity equation, the aortic valve area is 1.4cm2. Moderate valvular aortic stenosis. Mild aortic regurgitation. Pulmonic Valve The pulmonic valve is not well visualized. Page 1 of 2 11/27/2019 Great Vessels The aortic root is normal size. Pericardium/Pleural There is no pericardial effusion. The pericardium appears normal. Summary Statements A two-dimensional transthoracic echocardiogram with M-mode and Doppler was performed. The study was technically adequate. Compared to prior study, changes are noted. Left ventricular systolic function is severely reduced. Ejection Fraction=20-25% . Diastolic dysfunction. There are regional wall motion abnormalities as specified. Moderate valvular aortic stenosis with mild aortic regurgitation. The left atrium is severely dilated. Cardiac Cath : None available Assessment/Plan: Bob Dhaliwal is a 54 year old male admitted with: 1. Decompensated cirrhosis with large ascites, s/p 11 L paracentesis 2. Acute renal failure ( intravascular depleted with third spacing due to low albumin) mixed of HRS and pre-renal 3. Acute on chronic HFrEF 20-25% NYHA class Iv stage C 4. PVC's frequent 10% 5. Moderate to large R pleural effusion 6. Medical noncompliance, hx of polysubstance abuse Developed acute renal failure in the setting of IV diuresis and paracentesis, now kidney function improved Today 12/05/2019 , he went to technology lab teacher and was not able to lay flat therefore procedure was cancelled. Recommendations: Continue current management with aspirin 81 mg , coreg , spironolactone Increase lasix to 80 mg IV ( can use different dose of diuresis or oral ) but try to archive net negative of 1.5- 2 liters a day, monitor I&O daily weight , monitor creatine and avoid hypotension. please obtain CXR , has large right pleural effusion on CXR /2 . And consider thoracentesis if large effusion. Please repeat abdominal US to evaluate the need for paracentesis ( can do small amoutn to avoid renal failure , and may use albumin) Patient was not able to lay flat for [facility], therefore continue diuresis and once able to lay fat will proceed. Place on telemetry ( has 4 beats of NSVT) please keep MG > 2 and K>4 Patient will need LifeVest before leaving the hospital Patient was seen and examined with Faculty Dr Joseph Gaines MD General hr leader ICENOW ADMINISTRATOR Associated attestation - Richy Ruiz MD - 12/07/2019 12:45 PM CSTI personally examined the patient on 12/06/[address] Gaines's note as written. I actively participated in the decision-making process. Please see the fellow's note for additional details. Zaheer Mackenzie RN - 12/06/2019 12:43 PM CSTCare Management Note 12/06/19 12:43 PM MPOA witnessed and completed, Tamera Dhaliwal; ex sister in law; [phone] has been assigned [facility]. Original and additional copy given to patient, one copy placed in chart, and one placed in medical records to upload into chart. VU Spear, RN Hospice Team Lead [email or web address] O:[phone] F:[phone] aheer Mackenzie RN - 12/06/2019 12:03 PM [facility]STCare Management Note 12/06/19 12:03 PM Called Tamera Dhaliwal; ex sister in law; [phone], left message requesting call back. [facility] address: [address] [place] [address] [address] [place] [address] Patient also lives at the above address Patient has 4 adult children but wants Tamera to be the decision maker. Brother: Galo Juarez [phone] Per CM/SW notes from [facility], patient is established with [facility], called them at [phone] and confirmed he is on service with them. They will be bringing him a tank before the end of the day to his room. Oxygen Company: [facility] [address] [address] F: [phone] VU Spear, RN Hospice Team Lead [email or web address] O:[phone] F:[phone] Moustapha Wood MD - 12/06/2019 6:44 AM CST PGY- 1 [facility] Team Progress Note Date of Service: 12/06/2019 06:44 Chief Complaint: SOB and abdominal swelling 24-HOUR EVENTS: NAEO SUBJECTIVE: Patient is upset that he was not able to get the LHC done yesterday. Otherwise he is feeling okay and is having regular BMs and urinating well. Breathing is better. Patient has oxygen at home. PHYSICAL EXAM: Vitals: 12/05/19 2357 12/06/19 0057 12/06/19 0107 12/06/19 0331 BP: 121/61 127/87 Pulse: 72 74 74 81 Resp: 18 18 18 18 Temp: 36.6 C (97.9 F) 36.7 C (98 F) TempSrc: Oral Oral SpO2: 99% 99% 99% 100% Weight: Height: Tele: SR, IVCD, Alarms: 120s, NSVT for 4 beats, Trending 70s-80s General: alert and oriented x 4; in no distress Lungs: crackles, rhonchi Cardio: S1, S2 normal; no murmurs, rubs or gallops, tachycardic Abdomen: distended, soft; non TTP; normoactive bowel sounds Extremities: b/l LE pitting edema with venous stasis dermatitis LABS/IMAGING - reviewed, pertinent results as below: Reviewed ASSESSMENT/PLAN Bob Dhaliwal is a 54 year old male with PMH as listed above, admitted to the hospital with: Decompensated HFrEF(EF 20-25%), Regional WMA PVCs- 10% frequency, NSVT (14 beats) Prolonged QTc Moderate aortic stenosis HTN LHC not performed as patient cannot lay flat. Patient will need a life vest prior to discharge. - coreg 3.125 mg bid; consider uptitrating as tolerated - ASA 81 mg daily - holding entresto + digoxin at this time. 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 Has been having good UOP on current diuresis. Will avoid large volume paracentesis. - Lasix + Spironolactone daily (goal of net negative 1-2 L daily) - lactulose 30 QID (titrate to 3-4 BM's daily) - Transplant candidacy depends on his cardiac function. Can consider transplant eval if his EF recovers R sided pleural effusion- likely hepatic hydrothorax Reported COPD - No PFTs on file Tobacco use/polysubstance use Chronic Hypoxic respiratory failure - c/w diuresis - c/w duonebs + pulmonary toilet + IS - nicotine patch - CXR Insomnia Anxiety/Agitation - ramelteon QHS - c/w thiamine + folate - started zoloft QHS PAIN: Improved Tylenol and [place] Prophylaxis: DVT- Contraindicated: Thrombocytopenia Stress Ulcer: no indication for prophylaxis Code Status: addressed: full code Disposition Anticipated Discharge Date : TBD Barriers to Discharge: IV lasix Moustapha Ferrer MD Internal Medicine, PGY-1 [facility] Team Pager#[phone] END OF DAILY PROGRESS NOTE Hospital Course Bob Dhaliwal is a 54 y/o male with 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 On admission heunderwent large volume paracentesis x 2 (w/11 L removed) - studies negative for SBP. He was concurrently receiving diuretic therapy for volume overload presumable 2/2 decompensated cirrhosis and HFrEF exacerbation. Hospital course was c/b oliguric ABDIAZIZ. He was placed on a short diuretic holiday and given albumin w/ subsequent improvement in renal function and UOP. Patient was transferred to MICU for closer monitoring of intraabdominal pressure due to concerns for abdominal compartment syndrome. Intraabdominal pressures have been downtrending. Restarted on aggressive diuretic regimen, once renal function improved. Of note patient w/frequent PVC's, NSVT x 1, and mild troponin leak. EF similar to 04/2019, but decreased from 2017. Started on coreg per cardiology recs. Stable for TTF. Patient diuresing well. EGD unremarkable. LHC not performed as patient cannot lay flat. Chronic/Resolved Conditions: HTN Oliguric ABDIAZIZ, resolved Hyponatremia, resolved Hypochloremia, resolved Hepatic Encephalopathy, resolved ?Abdominal Compartment syndrome; ruled out Hyperkalemia, resolved Discharge Planning: - need outpatient f/u for untreated HCV - patient need to follow up with his network project manager within a week or schedule outpatient within 10 days after d/c. - Need BMP one week after discharge and continue same other plans and medications. CURRENT MEDICATIONS - reviewed.Electronically signed by Jose Erazo MD at 08/2020 3:53 PM SERVICENOW ADMINISTRATOR Associated attestation - Jose Erazo MD - 12/06/2019 3:53 PM CSTAttending History Supplement: I personally examined the patient on 12/06/[address] Ferrer's resident note as written. I actively participated in the decision-making process. Please see the resident's note for additional details. Briefly, Bob Dhaliwal is a 54 year old male with past medical history of decompensated HCV cirrhosis, combined systolic & diastolic CHF NYHA IV stage C, aortic stenosis, COPD (on 2L home O2), tobacco abuse, polysubstance abuse, admitted for: acute on chronic decompensated cirrhosis due to chronic liver disease On admission, he underwent large volume paracentesis x 2 with a total of 11 L removed - studies negative for SBP Hospital course was complicated by oliguric ABDIAZIZ; hospital course also complicated by abdominal compartment syndrome and required MICU stay; received albumin and diuretic held with renal function returnto baseline; he improved and transferred to floor Cardiology following with plan for ischemic work-up once clinically euvolemic ( currently unable to lay flat for LHC) Diuretic therapy being optimized as renal function permits Jose Erazo MD Chief Resident [phone] Clinical Floater Operator Department of Internal Medicine #[id number] 12/06/2019 Alfredo Gaines MD - 12/05/2019 8:58 PM CST Cardiology progress Note 12/05/2019 20:58 Bob Dhaliwal is a 54 year old male with history of HCV cirrhosis, Acute on chronic systolic HF ( EF 20-25%) NYHA class IV stage C, moderate aortic stenosis, COPD (on 2L home O2), HTN, tobacco use, and polysubstance abuse admitted from OSH for decompensated HCV cirrhosis. Troponin elevated 0.099. Telemetry notes frequent PVCs Patient denies chest pain, palpitation, dizziness syncope. Endorses sob, orthopnea, abd distention. ROS: 12 points ROS were obtained and negative except mentioned in HPI Past Medical History: Diagnosis Date CHF (congestive heart failure) COPD (chronic obstructive pulmonary disease) DM (diabetes mellitus) HTN (hypertension) Past Surgical History: Procedure Laterality Date ESOPHAGOGASTRODUODENOSCOPY N/A 12/04/2019 Surgeon: Chivo Vargas MD; Location: Endoscopy ([facility]) OR Location Family History Problem Relation Age of Onset Other - see comments Mother Epilepsy No Significant Medical Problems Father Social History Socioeconomic History Marital status: Single Spouse name: Not on file Number of children: Not on file Years of education: Not on file Highest education level: Not on file Occupational History Not on file Social Needs Financial resource strain: Not on file Food insecurity: Worry: Not on file Inability: Not on file Transportation needs: Medical: Not on file Non-medical: Not on file Tobacco Use Smoking status: Current Some Day Smoker Types: Cigarettes Smokeless tobacco: Never Used Tobacco comment: 2 packs a week Substance and Sexual Activity Alcohol use: No Drug use: Yes Types: Marijuana, Methamphetamines, Benzodiazepines Sexual activity: Not on file Lifestyle Physical activity: Days per week: Not on file Minutes per session: Not on file Stress: Not on file Relationships Social connections: Talks on phone: Not on file Gets together: Not on file Attends confucianist service: Not on file Active member of club or organization: Not on file Attends meetings of clubs or organizations: Not on file Relationship status: Not on file Intimate partner violence: Fear of current or ex partner: Not on file Emotionally abused: Not on file Physically abused: Not on file Forced sexual activity: Not on file Other Topics Concern Not on file Social History Narrative Not on file No Known Allergies Prior to Admission medications Medication Sig Start Date End Date Taking? Authorizing Provider digoxin 250 mcg (0.25 mg) tablet Take 250 mcg by mouth daily. Yes Doctor Unassigned, [place] furosemide (LASIX) 40 mg tablet Take 40 mg by mouth every morning and evening. Yes Doctor Unassigned, [place] sacubitril-valsartan (ENTRESTO) 24-26 mg tablet Take 1 tablet by mouth 2 (two) times daily. Yes Doctor Unassigned, [place] albuterol 90 mcg/actuation inhaler Inhale 2 Puffs every 6 (six) hours as needed for Wheezing or Shortness of Breath. 06/15/19 Moustapha Ferrer MD ipratropium 17 mcg/actuation inhaler Inhale 2 Puffs 3 (three) times daily. Moustapha Ferrer MD predniSONE 10 mg tablet Take 3 tablets by mouth daily. 06/15/19 Christian Mejia MD temazepam 15 mg capsule Take 1 capsule by mouth at bedtime as needed for Insomnia. 10/19/17 Saul Woodall MBBS Current Facility-Administered Medications: lactulose (CEPHULAC) solution 30 mL, 30 mL, Oral, TID, Moustapha Ferrer MD, Stopped at 12/05/192016 hydrOXYzine (ATARAX) tablet 10 mg, 10 mg, Oral, Q6HPRN, Maya Alatorre MD, 10 mg at ramelteon (ROZEREM) tablet 8 mg, 8 mg, Oral, QHS, Maya Alatorre MD, 8 mg at 12/05/192020 carvedilol (COREG) tablet 6.25 mg, 6.25 mg, Oral, BID MEALS, BrigidoHailey chun DO, 6.25 mg at12/05/19 182 foLIC acid (FOLATE) tablet 1 mg, 1 mg, Oral, DAILY, Leda Alvarado DO, 1 mg at 12/05/19 0838 furosemide (LASIX) tablet 80 mg, 80 mg, Oral, DAILY, Leo Jones MD, Stopped at 12/05/19 0900 ipratropium-albuterol (DUONEB) 0.5 mg-3 mg(2.5 mg base)/3 mL nebulizer solution 3 mL, 3 mL, Inhalation, Q4H, Leda Alvarado DO, 3 mL at 12/05/191958 spironolactone (ALDACTONE) tablet 200 mg, 200 mg, Oral, DAILY, Leo Jones MD, Stoppedat 12/05/19 0900 thiamine (VITAMIN B1) 100 mg in NaCl 0.9% (NS) piggyback, 100 mg, IV Piggyback, DAILY, Leda Alvarado DO, 100 mg at 12/05/19 0840 dextrose 10% (D10W) bolus infusion 250 mL, 250 mL, IV Infusion, PRN - SEE INSTRUCTIONS, Junior Fofana DO heparin (porcine) injection 5,000 Units, 5,000 Units, Subcutaneous, Q12H, Jnuior Fofana DO, Stopped at 12/05/19 0800 nicotine (NICODERM) 21 mg/24 hr patch 1 Patch, 1 Patch, Topical, Q24H, Maya Alatorre MD, 1 Patch at 12/05/19 0617 Miconazole Nitrate (DERMAFUNGAL) 2 % ointment, , Topical, BID, Kandis Parada DO triamcinolone acetonide (TRIDERM) 0.1 % cream, , Topical, DAILY, Kandis Parada DO, Stopped at12/05/19 1015 aspirin chewable tablet 81 mg, 81 mg, Oral, DAILY, Moustapha Ferrer MD, 81 mg at 12/05/19 0838 acetaminophen-codeine (TYLENOL #3) 300-30 mg tablet 1 tablet, 1 tablet, Oral, Q4HPRN, Julio Womack DO, 1 tablet at 12/04/19 2131 HYDROcodone-acetaminophen (NORCO 5) 5-325 mg tablet 1 tablet, 1 tablet, Oral, Q6HPRN, Julio Womack DO, 1 tablet at 12/05/19 2018 Physical Examination: Temp: [36.3 C (97.4 F)-36.6 C (97.9 F)] Heart Rate (monitor): [62] Pulse: [66-82] Resp: [18-21] BP: (98-132)/(49-66) MAP (mmHg): [70-72] Intake/Output Summary (Last 24 hours) at 12/05/20192057 Last data filed at 12/05/20192024 Gross per 24 hour Intake Output 1420 ml Net -1420 ml General: alert and oriented x2, no apparent distress HEENT: pupils equal, round, reactive to light Neck: full range of motion Lungs: no crackles, right lung reduced breath sounds and positive egophony Cardio: RRR, S1, S2 normal; no murmurs appreciated Abdomen: soft; non-tender; distended; normoactive bowel sounds : not examined Rectal: not examined Extremities: 3+edema with chronic venous stasis changes Skin: no rashes Neuro: cranial nerves II through XII grossly intact Labs/Imaging/Pathology - reviewed EKG : RBBB and bifascicular block, no baseline ECG to compare Echocardiography : Left Ventricle The left ventrical is severely dilated. LV mass index 183 g/m2 and RWT 0.32 consistent wtih severe eccentric LVH. Left ventricular systolic function is severely reduced. Ejection Fraction=20-25%. Diastolic dysfunction. Severe Inferior , anteroseptal and inferoseptal wall hypokinesis. There are regional wall motion abnormalities as specified. Right Ventricle The right ventricle is normal in size and function. There is normal right ventricular wall thickness. Atria The left atrium is severely dilated. Right atrial size is normal. Mitral Valve The mitral valve is normal. There is mild mitral regurgitation. Tricuspid Valve The tricuspid valve is normal. Estimated RA pressure is 0-5 mmHg. Insufficient Tricuspid regurgitation jet to estimate RVSP. Aortic Valve The aortic valve is mildly thickened and calcified. The mean aortic valve gradient measures 20.9 mmHg. The peak to peak aortic valve gradient measures 38.3 mmHg. Measured by the continuity equation, the aortic valve area is 1.4cm2. Moderate valvular aortic stenosis. Mild aortic regurgitation. Pulmonic Valve The pulmonic valve is not well visualized. Page 1 of 2 11/27/2019 Great Vessels The aortic root is normal size. Pericardium/Pleural There is no pericardial effusion. The pericardium appears normal. Summary Statements A two-dimensional transthoracic echocardiogram with M-mode and Doppler was performed. The study was technically adequate. Compared to prior study, changes are noted. Left ventricular systolic function is severely reduced. Ejection Fraction=20-25% . Diastolic dysfunction. There are regional wall motion abnormalities as specified. Moderate valvular aortic stenosis with mild aortic regurgitation. The left atrium is severely dilated. Cardiac Cath : None available Assessment/Plan: Bob Dhaliwal is a 54 year old male admitted with: 1. Decompensated cirrhosis with large ascites, s/p 11 L paracentesis 2. Acute renal failure ( intravascular depleted with third spacing due to low albumin) mixed of HRS and pre-renal 3. Acute on chronic HFrEF 20-25% NYHA class Iv stage C 4. PVC's frequent 10% 5. Moderate to large R pleural effusion 6. Medical noncompliance, hx of polysubstance abuse Developed acute renal failure in the setting of IV diuresis and paracentesis, now kidney function improved Today 12/05/2019 , he went to technology lab teacher and was not able to lay flat therefore procedure was cancelled. Recommendations: Continue current management with aspirin 81 mg , coreg , spironolactone and lasix , keep net negative. Patient was not able to lay flat for [facility], therefore continue diuresis and once able to lay fat will proceed. Keep MG>2 and K. 4 daily weight , I&O Place on telemetry Patient was seen and examined with Faculty Dr Joseph Gaines MD General hr leader ICENOW ADMINISTRATOR Associated attestation - Richy Ruiz MD - 12/06/2019 1:10 PM CSTI personally examined the patient on 12/05/[address] Gaines's note as written. I actively participated in the decision-making process. Please see the fellow's note for additional details. Naomi Fischer MD - 12/05/2019 2:56 PM CSTBRIEF GI NOTE - Patient was seen and examined. Awaiting [facility]. - MELD 15 today. Abdomen is still distended but soft. - continue low salt diet and current diuretic regimen - Transplant candidacy depends on his cardiac function. Can consider transplant eval if his EF recovers Patient was discussed with Dr. Vargas and Dr. Vieyra, please call with questions. GI will sign off Naomi Fischer MD PGY-4 Gastroenterology and Hepatology Pager [phone] Tiesha Cerrato PTA - 12/05/2019 2:52 PM CSTPTA NOTE: Attempted to see pt in PM. Per RN, patient at technology lab teacher. Will check back later for PT session time permitting. Tiesha Mansfield, ST[employer] MILL OPERATOR [phone] Supervising PT Nicolasa Resendiz Moustapha Wood MD - 12/05/2019 7:06 AM CST PGY- 1 [facility] Team Progress Note Date of Service: 12/05/2019 07:07 Chief Complaint: SOB and abdominal swelling 24-HOUR EVENTS: NAEO SUBJECTIVE: Patient is upset that he cannot eat because of his C today. Patient is frustrated about all the tests, reviewed with patient the importance of these tests to his health. He calmed down. Patient states his breathing has improved. PHYSICAL EXAM: Vitals: 12/04/19 2342 12/05/19 0213 12/05/19 0223 12/05/19 0336 BP: 108/55 98/49 Pulse: 78 78 78 69 Resp: 20 18 18 19 Temp: 36.6 C (97.9 F) 36.6 C (97.9 F) TempSrc: Oral Oral SpO2: 98% 96% 98% 96% Weight: Height: General: alert and oriented x 4; in no distress Lungs: crackles, wheezing, rhonchi Cardio: S1, S2 normal; no murmurs, rubs or gallops, tachycardic Abdomen: distension improving; non TTP; normoactive bowel sounds Extremities: b/l LE pitting edema with venous stasis dermatitis LABS/IMAGING - reviewed, pertinent results as below: Corrected Ca 8.9 EGD 12/04/19: - Portal hypertensive gastropathy. - Normal duodenal bulb, first portion of the duodenum and second portion of the duodenum. 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 Has been having good UOP on current diuresis. Will avoid large volume paracentesis. - Lasix 80mg + Spironolactone 200mg daily (goal of net negative 1-2 L daily) - lactulose 30 QID (titrate to 3-4 BM's daily) - GI on board R sided pleural effusion- likely hepatic hydrothorax Reported COPD - No PFTs on file Tobacco use/polysubstance use - c/w diuresis - c/w duonebs + pulmonary toilet + IS - nicotine patch - O2 to maintain sats > 92% Decompensated HFrEF(EF 20-25%), Regional WMA PVCs- 10% frequency, NSVT (14 beats) Prolonged QTc Moderate aortic stenosis HTN [facility] today. - coreg 3.125 mg bid; consider uptitrating as tolerated - ASA 81 mg daily - holding entresto + digoxin at this time. - cardiology on board - Keep K > 4, Mg > 2 - Avoid QTc prolonging agents Insomnia Anxiety/Agitation - Melatonin QHS - c/w thiamine + folate PAIN: Improved Tylenol and [place] Prophylaxis: DVT- Contraindicated: Thrombocytopenia Stress Ulcer: no indication for prophylaxis Code Status: addressed: full code Disposition Anticipated Discharge Date : TBD Barriers to Discharge: [facility] Moustapha Ferrer MD Internal Medicine, PGY-1 [facility] Team Pager#[phone] END OF DAILY PROGRESS NOTE Hospital Course Bob Dhaliwal is a 54 y/o male with 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 On admission heunderwent large volume paracentesis x 2 (w/11 L removed) - studies negative for SBP. He was concurrently receiving diuretic therapy for volume overload presumable 2/2 decompensated cirrhosis and HFrEF exacerbation. Hospital course was c/b oliguric ABDIAZIZ. He was placed on a short diuretic holiday and given albumin w/ subsequent improvement in renal function and UOP. Patient was transferred to MICU for closer monitoring of intraabdominal pressure due to concerns for abdominal compartment syndrome. Intraabdominal pressures have been downtrending. Restarted on aggressive diuretic regimen, once renal function improved. Of note patient w/frequent PVC's, NSVT x 1, and mild troponin leak. EF similar to 04/2019, but decreased from 2017. Started on coreg per cardiology recs. Stable for TTF. Patient diuresing well. EGD unremarkable. Plan for C today. Chronic/Resolved Conditions: HTN Oliguric ABDIAZIZ, resolved Hyponatremia, resolved Hypochloremia, resolved Hepatic Encephalopathy, resolved ?Abdominal Compartment syndrome; ruled out Hyperkalemia, resolved Discharge Planning: - need outpatient f/u for untreated HCV - patient need to follow up with his network project manager within a week or schedule outpatient within 10 days after d/c. - Need BMP one week after discharge and continue same other plans and medications. CURRENT MEDICATIONS - reviewed.Electronically signed by Jose Erazo MD at 07/2020 1:49 PM SERVICENOW ADMINISTRATOR Associated attestation - Jose Erazo MD - 12/05/2019 1:49 PM CSTAttending History Supplement: I personally examined the patient on 12/05/[address] Ferrer's resident note as written. I actively participated in the decision-making process. Please see the resident's note for additional details. Jose Erazo MD Chief Resident [id number] Clinical Floater Operator Department of Internal Medicine #[id number] 12/05/2019Ashleigh Lovell - 12/04/2019 5:18 PM CSTSocial Work Note: 12/04/2019 5:18 PM CONRAD attempted for the 3rd time to complete MPOA with patient, patient was awaken by SW reminded patient of attempting to complete MPOA. Patient informed SW that it would be best for tomorrow his Tamera Dhaliwal [phone] would be coming and could assist. CONRAD spoke to nurse Dubois and informed patient will be completing MPOA, to follow up with EDILBERTO Watts. As of 12/04/19 5:26 pm SW has not received call from patient relative Tamera, from call previously made to follow up on patient O2 machine. CONRAD/CC will continue to assist patient with discharge planning. Ashleigh Lovell LMSW Care Management Team Gas Station Attendant [email or web address] (P) [phone] (C) [phone] (not for patient use). 12/04/19.5:24 PM. Tiesha Cerrato PTA - 12/04/2019 2:49 PM SERVICENOW ADMINISTRATOR Physical Therapy Progress Note: Recommendations: Primary discharge plan: home with 19/06 family supervision and home health PT Equipment recommendations: Rolling Walker PAIN: -Pain Location: abdomen and "my ass" -Pain rating before treatment: does not rate, After treatment: does not rate -Pain Management: Nursing Notified and Repositioning Provided PRECAUTIONS: Weight Bearing Precaution: NA General Precautions: General, Fall Bracing/Cast present or required:N/A S: Patient agreeable to working with PT. Pt reports he needs to go the restroom. O: Patient met Up in chair. Patient seen for the following: Transfers: Sit to stand: SBA/Setup using no device Stand to sit: SBA/Setup using no device Stand pivot transfer: SBA/Setup Static/dynamic standing balance: Fair+ - analyzed stance: head down, rounded shoulders facilitated upright posture Gait: Assisted patient with ambulation as follows: 40', 45' feet using no device and SBA progressing to CGA then back to SBA Patient presenting with Step-through gait pattern -analyzed gait: slow paced, step through, unsteady implemented assistance due to instability - progressed with stability and returned to SBA for safety After session, patient on toilet and call fragoso provided. A: Patient tolerated session well. Patient progressing toward goals #2, #3. P: PT will - attempt to progress gait distance. Total Timed Tx Codes in Minutes: 11 Min Total Treatment Time in Minutes: 11 Min Tiesha Mansfield PTA Pager # [phone] Supervising PT Caesar Lara Alfredo Clarke MD - 12/04/2019 1:42 PM CST Cardiology progress Note 12/04/2019 13:42 Bob Dhaliwal is a 54 year old male with history of HCV cirrhosis, Acute on chronic systolic HF ( EF 20-25%) NYHA class IV stage C, moderate aortic stenosis, COPD (on 2L home O2), HTN, tobacco use, and polysubstance abuse admitted from OSH for decompensated HCV cirrhosis. Troponin elevated 0.099. Telemetry notes frequent PVCs Patient denies chest pain, palpitation, dizziness syncope. Endorses sob, orthopnea, abd distention. ROS: 12 points ROS were obtained and negative except mentioned in HPI Past Medical History: Diagnosis Date CHF (congestive heart failure) COPD (chronic obstructive pulmonary disease) DM (diabetes mellitus) HTN (hypertension) History reviewed. No pertinent surgical history. Family History Problem Relation Age of Onset Other - see comments Mother Epilepsy No Significant Medical Problems Father Social History Socioeconomic History Marital status: Single Spouse name: Not on file Number of children: Not on file Years of education: Not on file Highest education level: Not on file Occupational History Not on file Social Needs Financial resource strain: Not on file Food insecurity: Worry: Not on file Inability: Not on file Transportation needs: Medical: Not on file Non-medical: Not on file Tobacco Use Smoking status: Current Some Day Smoker Types: Cigarettes Smokeless tobacco: Never Used Tobacco comment: 2 packs a week Substance and Sexual Activity Alcohol use: No Drug use: Yes Types: Marijuana, Methamphetamines, Benzodiazepines Sexual activity: Not on file Lifestyle Physical activity: Days per week: Not on file Minutes per session: Not on file Stress: Not on file Relationships Social connections: Talks on phone: Not on file Gets together: Not on file Attends confucianist service: Not on file Active member of club or organization: Not on file Attends meetings of clubs or organizations: Not on file Relationship status: Not on file Intimate partner violence: Fear of current or ex partner: Not on file Emotionally abused: Not on file Physically abused: Not on file Forced sexual activity: Not on file Other Topics Concern Not on file Social History Narrative Not on file No Known Allergies Prior to Admission medications Medication Sig Start Date End Date Taking? Authorizing Provider digoxin 250 mcg (0.25 mg) tablet Take 250 mcg by mouth daily. Yes Doctor Unassigned, [place] furosemide (LASIX) 40 mg tablet Take 40 mg by mouth every morning and evening. Yes Doctor Unassigned, [place] sacubitril-valsartan (ENTRESTO) 24-26 mg tablet Take 1 tablet by mouth 2 (two) times daily. Yes Doctor Unassigned, [place] albuterol 90 mcg/actuation inhaler Inhale 2 Puffs every 6 (six) hours as needed for Wheezing or Shortness of Breath. 06/15/19 Moustapha Ferrer MD ipratropium 17 mcg/actuation inhaler Inhale 2 Puffs 3 (three) times daily. Moustapha Ferrer MD predniSONE 10 mg tablet Take 3 tablets by mouth daily. 06/15/19 Christian Mejia MD temazepam 15 mg capsule Take 1 capsule by mouth at bedtime as needed for Insomnia. 10/19/17 Saul Woodall MBBS Current Facility-Administered Medications: lactulose (CEPHULAC) solution 30 mL, 30 mL, Oral, TID, Moustapha Ferrer MD hydrOXYzine (ATARAX) tablet 10 mg, 10 mg, Oral, Q6HPRN, Maya Alatorre MD, 10 mg at ramelteon (ROZEREM) tablet 8 mg, 8 mg, Oral, QHS, Maya Alatorre MD, 8 mg at 12/03/191954 carvedilol (COREG) tablet 6.25 mg, 6.25 mg, Oral, BID MEALS, BrigidoHailey DO, 6.25 mg at12/04/19825 foLIC acid (FOLATE) tablet 1 mg, 1 mg, Oral, DAILY, Leda Alvarado DO, 1 mg at 12/04/19825 furosemide (LASIX) tablet 80 mg, 80 mg, Oral, DAILY, Leo Jones MD, 80 mg at ipratropium-albuterol (DUONEB) 0.5 mg-3 mg(2.5 mg base)/3 mL nebulizer solution 3 mL, 3 mL, Inhalation, Q4H, Leda Alvarado DO, Stopped at 12/04/19 1111 spironolactone (ALDACTONE) tablet 200 mg, 200 mg, Oral, DAILY, Leo Jones MD, 200 mg at 12/04/19 08 thiamine (VITAMIN B1) 100 mg in NaCl 0.9% (NS) piggyback, 100 mg, IV Piggyback, DAILY, Leda Alvarado DO, 100 mg at 12/04/19 0826 dextrose 10% (D10W) bolus infusion 250 mL, 250 mL, IV Infusion, PRN - SEE INSTRUCTIONS, Junior Fofana DO heparin (porcine) injection 5,000 Units, 5,000 Units, Subcutaneous, Q12H, Junior Fofana DO, 5,000 Units at 12/03/19 0908 nicotine (NICODERM) 21 mg/24 hr patch 1 Patch, 1 Patch, Topical, Q24H, Maya Alatorre MD, 1 Patch at 12/04/19 0622 Miconazole Nitrate (DERMAFUNGAL) 2 % ointment, , Topical, BID, Kandis Parada DO triamcinolone acetonide (TRIDERM) 0.1 % cream, , Topical, DAILY, Kandis Parada DO aspirin chewable tablet 81 mg, 81 mg, Oral, DAILY, Moustapha Ferrer MD, 81 mg at 12/04/19 0826 acetaminophen-codeine (TYLENOL #3) 300-30 mg tablet 1 tablet, 1 tablet, Oral, Q4HPRN, Julio Womack DO, 1 tablet at 12/04/19 0826 HYDROcodone-acetaminophen (NORCO 5) 5-325 mg tablet 1 tablet, 1 tablet, Oral, Q6HPRN, Julio Womack DO, 1 tablet at 12/04/19 0625 Physical Examination: Temp: [36.4 C (97.5 F)-37 C (98.6 F)] Pulse: [67-87] Resp: [16-26] BP: (87-116)/(46-66) MAP (mmHg): [69-73] Intake/Output Summary (Last 24 hours) at 12/04/2019 1342 Last data filed at 12/04/2019 1325 Gross per 24 hour Intake 50 ml Output 4950 ml Net -4900 ml General: alert and oriented x2, no apparent distress HEENT: pupils equal, round, reactive to light Neck: full range of motion Lungs: no crackles, right lung reduced breath sounds and positive egophony Cardio: RRR, S1, S2 normal; no murmurs appreciated Abdomen: soft; non-tender; distended; normoactive bowel sounds : not examined Rectal: not examined Extremities: 3+edema with chronic venous stasis changes Skin: no rashes Neuro: cranial nerves II through XII grossly intact Labs/Imaging/Pathology - reviewed EKG : RBBB and bifascicular block, no baseline ECG to compare Echocardiography : Left Ventricle The left ventrical is severely dilated. LV mass index 183 g/m2 and RWT 0.32 consistent wtih severe eccentric LVH. Left ventricular systolic function is severely reduced. Ejection Fraction=20-25%. Diastolic dysfunction. Severe Inferior , anteroseptal and inferoseptal wall hypokinesis. There are regional wall motion abnormalities as specified. Right Ventricle The right ventricle is normal in size and function. There is normal right ventricular wall thickness. Atria The left atrium is severely dilated. Right atrial size is normal. Mitral Valve The mitral valve is normal. There is mild mitral regurgitation. Tricuspid Valve The tricuspid valve is normal. Estimated RA pressure is 0-5 mmHg. Insufficient Tricuspid regurgitation jet to estimate RVSP. Aortic Valve The aortic valve is mildly thickened and calcified. The mean aortic valve gradient measures 20.9 mmHg. The peak to peak aortic valve gradient measures 38.3 mmHg. Measured by the continuity equation, the aortic valve area is 1.4cm2. Moderate valvular aortic stenosis. Mild aortic regurgitation. Pulmonic Valve The pulmonic valve is not well visualized. Page 1 of 2 11/27/2019 Great Vessels The aortic root is normal size. Pericardium/Pleural There is no pericardial effusion. The pericardium appears normal. Summary Statements A two-dimensional transthoracic echocardiogram with M-mode and Doppler was performed. The study was technically adequate. Compared to prior study, changes are noted. Left ventricular systolic function is severely reduced. Ejection Fraction=20-25% . Diastolic dysfunction. There are regional wall motion abnormalities as specified. Moderate valvular aortic stenosis with mild aortic regurgitation. The left atrium is severely dilated. Cardiac Cath : None available Assessment/Plan: Bob Dhaliwal is a 54 year old male admitted with: 1. Decompensated cirrhosis with large ascites, s/p 11 L paracentesis 2. Acute renal failure ( intravascular depleted with third spacing due to low albumin) mixed of HRS and pre-renal 3. Acute on chronic HFrEF 20-25% NYHA class Iv stage C 4. PVC's frequent 10% 5. Moderate to large R pleural effusion 6. Medical noncompliance, hx of polysubstance abuse Developed acute renal failure in the setting of IV diuresis and paracentesis, now kidney function improved Recommendations: - EGD done today no esophageal varesis . Please keep NPO past midnight for LHC in AM Please consult anaesthesia for the LHC as he is short of breath volume overloaded. Continue current management with aspirin 81 mg , coreg , spironolactone and lasix , keep net negative. monitor electrolytes and mg daily Patient was seen and examined with Faculty Dr Joseph Gaines MD General hr leader ICENOW ADMINISTRATOR Associated attestation - Richy Ruiz MD - 12/04/2019 2:09 PM CSTI personally examined the patient on 12/04/[address] Gaines's note as written. I actively participated in the decision-making process. Please see the fellow's note for additional details. Linda Diaz - 12/04/2019 1:06 PM CST Medical Nutrition Therapy- Follow-up Malnutrition Assessment: Nutritional Diagnosis: Moderate protein calorie malnutrition SGA Rating: Mild / Moderate History of Present Illness: Bob Dhaliwla is a 54 year old malewith HCV cirrhosis MELD-Na of 23 (decompensated by ascites and hepatic hydrothorax), HFref (EF 20-25%) NYHA IV stage C, moderate aorticstenosis, COPD (on 2L home O2) , tobacco use, polysubstance abuse who as admitted on 11/26 with abdominal distension and dyspnea in the setting of diuretics non-compliance and possible low Na diet non-compliance. PMH/PSH: Past Medical History: Diagnosis Date CHF (congestive heart failure) COPD (chronic obstructive pulmonary disease) DM (diabetes mellitus) HTN (hypertension) History reviewed. No pertinent surgical history. GI and Nutrition Related Findings: Symptoms: N/A Difficulty: N/A GI tract alteration: N/A Alternative means of nutrition: N/A General: Edema Medications: I have reviewed the medications currently ordered in the EMR located under the medications andMAR tabs. Current medications include: Current Facility-Administered Medications: lactulose (CEPHULAC) solution 30 mL, 30 mL, Oral, TID, Babu, Shilka, MD hydrOXYzine (ATARAX) tablet 10 mg, 10 mg, Oral, Q6HPRN, Maya Alatorre MD, 10 mg at ramelteon (ROZEREM) tablet 8 mg, 8 mg, Oral, QHS, Maya Alatorre MD, 8 mg at 12/03/191954 carvedilol (COREG) tablet 6.25 mg, 6.25 mg, Oral, BID MEALS, Hailey Fofana DO, 6.25 mg at12/04/19 08 foLIC acid (FOLATE) tablet 1 mg, 1 mg, Oral, DAILY, Leda Alvarado DO, 1 mg at 12/04/19825 furosemide (LASIX) tablet 80 mg, 80 mg, Oral, DAILY, Leo Jones MD, 80 mg at ipratropium-albuterol (DUONEB) 0.5 mg-3 mg(2.5 mg base)/3 mL nebulizer solution 3 mL, 3 mL, Inhalation, Q4H, Leda Alvarado DO, Stopped at 12/04/19 1111 spironolactone (ALDACTONE) tablet 200 mg, 200 mg, Oral, DAILY, Leo Jones MD, 200 mg at 12/04/19825 thiamine (VITAMIN B1) 100 mg in NaCl 0.9% (NS) piggyback, 100 mg, IV Piggyback, DAILY, Lead Alvarado DO, 100 mg at 12/04/19825 dextrose 10% (D10W) bolus infusion 250 mL, 250 mL, IV Infusion, PRN - SEE INSTRUCTIONS, Junior Fofana DO heparin (porcine) injection 5,000 Units, 5,000 Units, Subcutaneous, Q12H, Junior Fofana DO, 5,000 Units at 12/03/19 0908 nicotine (NICODERM) 21 mg/24 hr patch 1 Patch, 1 Patch, Topical, Q24H, Maya Alatorre MD, 1 Patch at 12/04/19 0622 Miconazole Nitrate (DERMAFUNGAL) 2 % ointment, , Topical, BID, Kandis Parada DO triamcinolone acetonide (TRIDERM) 0.1 % cream, , Topical, DAILY, Kandis Parada DO aspirin chewable tablet 81 mg, 81 mg, Oral, DAILY, Moustapha Ferrer MD, 81 mg at 12/04/19 0826 acetaminophen-codeine (TYLENOL #3) 300-30 mg tablet 1 tablet, 1 tablet, Oral, Q4HPRN, Julio Womack, , 1 tablet at 12/04/19 0826 HYDROcodone-acetaminophen (NORCO 5) 5-325 mg tablet 1 tablet, 1 tablet, Oral, Q6HPRN, Julio Womack, , 1 tablet at 12/04/19 0625 Lab and Medical Test Results: NA (mmol/L) Date Value 12/04/2019 135 K (mmol/L) Date Value 12/04/2019 4.5 CALCIUM (mg/dL) Date Value 12/04/2019 8.4 (L) CL (mmol/L) Date Value 12/04/2019 101 BUN (mg/dL) Date Value 12/04/2019 27 (H) CREATININE (mg/dL) Date Value 12/04/2019 0.90 GLUCOSE (mg/dL) Date Value 12/04/2019 164 (H) CO2 TOTAL (mmol/L) Date Value 12/04/2019 24 ALBUMIN (g/dL) Date Value 12/04/2019 3.1 (L) T PROTEIN (g/dL) Date Value 12/04/2019 6.3 TOTAL BILI (mg/dL) Date Value 12/04/2019 1.1 BILI UNCON (mg/dL) Date Value 12/04/2019 0.7 BILI CONJ (mg/dL) Date Value 12/04/2019 0.0 ALT(SGPT) (U/L) Date Value 06/15/2019 312 (H) ALTv (U/L) Date Value 12/04/2019 63 (H) AST(SGOT) (U/L) Date Value 12/04/2019 127 (H) ALK PHOS (U/L) Date Value 12/04/2019 63 Nutrition Assessment: Age: [age] year old Sex: male Ht: 1.778 5'10" Ht Readings from Last 3 Encounters: 11/26/19 1.778 m (5' 10") 06/13/19 1.778 m (5' 10") 10/18/17 1.803 m (5' 11") Current Wt: 118.4 kg/ 261 lb BMI: Body mass index is 37.46 kg/m. (Obesity (BMI 30-39.9)) IBW for Ht: 75.45 kg +/- 7 kg %IBW: 157 % Weight History: Wt Readings from Last 10 Encounters: 11/30/19 120 kg (264 lb 8.8 oz) 06/13/19 94.6 kg (208 lb 8 oz) 10/18/17 95.3 kg (210 lb) Inflammatory Markers: Hyperglycemia Current Dietary Order(s): Low Sodium (2 gm) Diet; Texture: Regular EMR documented food allergies/intolerance/cultural preferences: Nutrition & Diet History: Patient was NPO for procedure and placed back on Low-Sodium Diet today starting during lunchtime. Denies any N/V/D/C at this time. Recommend continuing Low-Sodium Diet. Will follow-up. Estimated Daily Nutritional Needs: Calories: 2600 kcal/day=22 kcal/kg current wt=34 kcal/kg IBW Protein: 20 % of kcal need/voc=435 g/day=1.1g/kg current wt=1.7 g/kg IBW Fluid: 2600 mL/day or per MD; adjust per acute needs Nutrition Diagnosis: Obesity related to behavior and lifestyle choices as evidenced by BMI 37.96 Nutrition Plan of Care: Intervention(s): 1. Diet should provide 1-1.5 g of high quality protein per kg with adequate carbohydrates to spare protein. 2. Recommend omega 3 fatty acids supplementation as fat is the preferred fuel. 3.Recommend supplementing diet with B-complex vitamins, vitamins C & K, zinc and magnesium through foods or supplements. 4. Recommend patient avoid alcoholic beverages. 5. Recommend low sodium intake (2-4 g) with ascites. Goal(s): 1. Patient will consume Low-Sodium <2 gm per day D/C Planning: Limit sodium <2 g/day Try salt free seasonings include paprika, pepper, cumin, basil, oregano..etc. Make sure to read labels at home, remember that 140 mg or less is considered "low sodium" Eat 3 meals and at least 3 snacks every day Prioritize protein items such as meat, eggs, peanut butter, beans, milk, yogurt, nuts and cheese Try liquid nutritional supplements Ensure enlive, Boost Supplements Add protein powder at meals Make high protein, high calorie smoothie or milkshakes May use protein powder, milk, ice cream, and peanut butter Nutrition Monitoring and Evaluation: A registered dietitian will f/u as indicated to report nutrition related information and to revise the recommended nutrition intervention(s); please call with questions or concerns, thank-you. Linda Diaz RD, LD Clinical Dietitian RD Office: [id number] Ashleigh Johnson - 12/04/2019 12:42 PM CSTSocial Work Note: 12/04/2019 12:42 PM SW followed up with patient emergency contact Tamera Madhuri; ex sister in law; [phone], to follow up on locating patient home O2 and identifying company providing O2. SW was unable to speak to Ms. Philip, SW left voicemail with call back number [phone]. SW/CC will continue to assist patient with discharge planning. Ashleigh Lovell LMSW Care Management Team Gas Station Attendant [email or web address] (P) [phone] (C) [phone] (not for patient use). 12/04/19.12:44 PM. Ashleigh Johnson - 12/04/2019 12:10 PM CSTSocial Work Note: 12/04/2019 12:10 PM SW followed up with patient regarding Medical Power of Paint Stock Clerk (MPOA) from that was given to patient on 12/02/2019 at bedside. Patient did not have a form, SW provided MPOA once more, along with forms for Durable Power of Paint Stock Clerk and Advance Directives. Patient asked for social work instructor to return at a later time to complete MPOA, wasn 't feeling good. SW will assist patient at a later time. SW informed SW that I would be calling Tamera Dhaliwal; ex sister in law; to follow up on MPOA, and changes to his housing and also if they were able to obtain patient's home oxygen, from previous living arrangement. SW/CC will continue to assist patient with discharge planning. Ashleigh Lovell LMSW Care Management Team Gas Station Attendant [email or web address] (P) [phone] (C) [phone] (not for patient use). 12/04/19.12:39 PM. Moustapha Wood MD - 12/04/2019 6:58 AM CST PGY- 1 [facility] Team Progress Note Date of Service: 12/04/2019 06:58 Chief Complaint: SOB and abdominal swelling 24-HOUR EVENTS: NAEO SUBJECTIVE: Patient is frustrated that he is still in the hospital and is ready to go home. Patient understands that he needs EGD today, but is upset that he cannot eat. He denies any other complaints. PHYSICAL EXAM: Vitals: 12/04/19 0000 12/04/19 0003 12/04/19 0320 12/04/19 0400 BP: 105/64 110/66 Pulse: 73 71 76 87 Resp: Temp: 36.9 C (98.4 F) 37 C (98.6 F) TempSrc: Oral Oral SpO2: 95% 97% 92% 93% Weight: Height: General: alert and oriented x 4; in no distress; off NC Lungs: crackles, wheezing, rhonchi Cardio: S1, S2 normal; no murmurs, rubs or gallops, tachycardic Abdomen: distension improving; non TTP; normoactive bowel sounds Extremities: b/l LE pitting edema with venous stasis dermatitis LABS/IMAGING - reviewed, pertinent results as below: Reviewed ASSESSMENT/PLAN Bob Dhaliwal is a 54 year old male with PMH as listed above, admitted to the hospital with: 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 Has been having good UOP on current diuresis. Will avoid large volume paracentesis. - Lasix 80mg + Spironolactone 200mg daily (goal of net negative 1-2 L daily) - lactulose 30 QID (titrate to 3-4 BM's daily) - GI following - plan for EGD today R sided pleural effusion- likely hepatic hydrothorax Reported COPD - No PFTs on file Tobacco use/polysubstance use - c/w diuresis - c/w duonebs + pulmonary toilet + IS - nicotine patch - O2 to maintain sats > 92% Decompensated HFrEF(EF 20-25%), [facility] PVCs- 10% frequency, NSVT (14 beats) Prolonged QTc Moderate aortic stenosis HTN Cardiology to consider LHC after EGD. - coreg 3.125 mg bid; consider uptitrating as tolerated - ASA 81 mg daily - holding entresto + digoxin at this time. If renal function remains stable , consider restarting - f/u cardiology recs - patient will need EGD prior to LHC - Keep K > 4, Mg > 2 - Avoid QTc prolonging agents Insomnia Anxiety/Agitation - Melatonin QHS - c/w thiamine + folate PAIN: Improved Tylenol and [place] Prophylaxis: DVT- Contraindicated: Thrombocytopenia Stress Ulcer: no indication for prophylaxis Code Status: addressed: full code Disposition Anticipated Discharge Date : TBD Barriers to Discharge: diurese regimen Moustapha Ferrer MD Internal Medicine, PGY-1 [facility] Team Pager#[phone] END OF DAILY PROGRESS NOTE Hospital Course Bob Dhaliwal is a 54 y/o male with 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 On admission heunderwent large volume paracentesis x 2 (w/11 L removed) - studies negative for SBP. He was concurrently receiving diuretic therapy for volume overload presumable 2/2 decompensated cirrhosis and HFrEF exacerbation. Hospital course was c/b oliguric ABDIAZIZ. He was placed on a short diuretic holiday and given albumin w/ subsequent improvement in renal function and UOP. Patient was transferred to MICU for closer monitoring of intraabdominal pressure due to concerns for abdominal compartment syndrome. Intraabdominal pressures have been downtrending. Restarted on aggressive diuretic regimen, once renal function improved. Of note patient w/frequent PVC's, NSVT x 1, and mild troponin leak. EF similar to 04/2019, but decreased from 2017. Started on coreg per cardiology recs. Stable for TTF. Patient diuresing well. Plan forEGD today prior to [facility]. Chronic/Resolved Conditions: HTN Oliguric ABDIAZIZ, resolved Hyponatremia, resolved Hypochloremia, resolved Hepatic Encephalopathy, resolved ?Abdominal Compartment syndrome; ruled out Hyperkalemia, resolved Discharge Planning: - need outpatient f/u for untreated HCV - patient need to follow up with his network project manager within a week or schedule outpatient within 10 days after d/c. - Need BMP one week after discharge and continue same other plans and medications. CURRENT MEDICATIONS - reviewed.Electronically signed by Jose Erazo MD at 07/2020 1:47 PM SERVICENOW ADMINISTRATOR Associated attestation - Jose Erazo MD - 12/05/2019 1:47 PM CSTAttending History Supplement: I personally examined the patient on 12/04/[address] Ferrer's resident note as written. I actively participated in the decision-making process. Please see the resident's note for additional details. Jose Erazo MD Chief Resident [phone] Clinical Floater Operator Department of Internal Medicine #[id number] 12/05/2019AlAlfredo soliz MD - 12/03/2019 8:44 PM CST Cardiology progress Note 12/03/2019 20:44 Bob Dhaliwal is a 54 year old male with history of HCV cirrhosis, Acute on chronic systolic HF ( EF 20-25%) NYHA class IV stage C, moderate aortic stenosis, COPD (on 2L home O2), HTN, tobacco use, and polysubstance abuse admitted from OSH for decompensated HCV cirrhosis. Troponin elevated 0.099. Telemetry notes frequent PVCs Patient denies chest pain, palpitation, dizziness syncope. Endorses sob, orthopnea, abd distention. ROS: 12 points ROS were obtained and negative except mentioned in HPI Past Medical History: Diagnosis Date CHF (congestive heart failure) COPD (chronic obstructive pulmonary disease) DM (diabetes mellitus) HTN (hypertension) History reviewed. No pertinent surgical history. Family History Problem Relation Age of Onset Other - see comments Mother Epilepsy No Significant Medical Problems Father Social History Socioeconomic History Marital status: Single Spouse name: Not on file Number of children: Not on file Years of education: Not on file Highest education level: Not on file Occupational History Not on file Social Needs Financial resource strain: Not on file Food insecurity: Worry: Not on file Inability: Not on file Transportation needs: Medical: Not on file Non-medical: Not on file Tobacco Use Smoking status: Current Some Day Smoker Types: Cigarettes Smokeless tobacco: Never Used Tobacco comment: 2 packs a week Substance and Sexual Activity Alcohol use: No Drug use: Yes Types: Marijuana, Methamphetamines, Benzodiazepines Sexual activity: Not on file Lifestyle Physical activity: Days per week: Not on file Minutes per session: Not on file Stress: Not on file Relationships Social connections: Talks on phone: Not on file Gets together: Not on file Attends confucianist service: Not on file Active member of club or organization: Not on file Attends meetings of clubs or organizations: Not on file Relationship status: Not on file Intimate partner violence: Fear of current or ex partner: Not on file Emotionally abused: Not on file Physically abused: Not on file Forced sexual activity: Not on file Other Topics Concern Not on file Social History Narrative Not on file No Known Allergies Prior to Admission medications Medication Sig Start Date End Date Taking? Authorizing Provider digoxin 250 mcg (0.25 mg) tablet Take 250 mcg by mouth daily. Yes Doctor Unassigned, [place] furosemide (LASIX) 40 mg tablet Take 40 mg by mouth every morning and evening. Yes Doctor Unassigned, [place] sacubitril-valsartan (ENTRESTO) 24-26 mg tablet Take 1 tablet by mouth 2 (two) times daily. Yes Doctor Unassigned, [place] albuterol 90 mcg/actuation inhaler Inhale 2 Puffs every 6 (six) hours as needed for Wheezing or Shortness of Breath. 06/15/19 Moustapha Ferrer MD ipratropium 17 mcg/actuation inhaler Inhale 2 Puffs 3 (three) times daily. Moustapha Ferrer MD predniSONE 10 mg tablet Take 3 tablets by mouth daily. 06/15/19 Christian Mejia MD temazepam 15 mg capsule Take 1 capsule by mouth at bedtime as needed for Insomnia. 10/19/17 Saul Woodall MBBS Current Facility-Administered Medications: hydrOXYzine (ATARAX) tablet 10 mg, 10 mg, Oral, Q6HPRN, Maya Alatorre MD, 10 mg at ramelteon (ROZEREM) tablet 8 mg, 8 mg, Oral, QHS, Maya Alatorre MD, 8 mg at 12/03/191954 carvedilol (COREG) tablet 6.25 mg, 6.25 mg, Oral, BID MEALS, Hailey Fofana DO, 6.25 mg at12/03/191611 foLIC acid (FOLATE) tablet 1 mg, 1 mg, Oral, DAILY, Leda Alvarado DO, 1 mg at 12/03/19907 furosemide (LASIX) tablet 80 mg, 80 mg, Oral, DAILY, Leo Jones MD, 80 mg at ipratropium-albuterol (DUONEB) 0.5 mg-3 mg(2.5 mg base)/3 mL nebulizer solution 3 mL, 3 mL, Inhalation, Q4H, Leda Alvarado DO, 3 mL at 12/03/191911 lactulose (CEPHULAC) solution 30 mL, 30 mL, Oral, QID, Junior Fofana DO, 30 mL at 12/03/191957 spironolactone (ALDACTONE) tablet 200 mg, 200 mg, Oral, DAILY, Leo Jones MD, 200 mg at 12/03/19907 thiamine (VITAMIN B1) 100 mg in NaCl 0.9% (NS) piggyback, 100 mg, IV Piggyback, DAILY, Leda Alvarado DO, 100 mg at 12/03/19 09 dextrose 10% (D10W) bolus infusion 250 mL, 250 mL, IV Infusion, PRN - SEE INSTRUCTIONS, Junior Fofana DO heparin (porcine) injection 5,000 Units, 5,000 Units, Subcutaneous, Q12H, Brigido, Sally-Lizzie, DO, 5,000 Units at 12/03/19 0908 nicotine (NICODERM) 21 mg/24 hr patch 1 Patch, 1 Patch, Topical, Q24H, Maya Alatorre MD, 1 Patch at 12/03/19 0909 Miconazole Nitrate (DERMAFUNGAL) 2 % ointment, , Topical, BID, Kandis Parada, triamcinolone acetonide (TRIDERM) 0.1 % cream, , Topical, DAILY, Kandis Parada, aspirin chewable tablet 81 mg, 81 mg, Oral, DAILY, Moustapha Ferrer MD, 81 mg at 12/03/19 0908 acetaminophen-codeine (TYLENOL #3) 300-30 mg tablet 1 tablet, 1 tablet, Oral, Q4HPRN, Julio Womack DO, 1 tablet at 12/03/19 1801 HYDROcodone-acetaminophen (NORCO 5) 5-325 mg tablet 1 tablet, 1 tablet, Oral, Q6HPRN, Julio Womack DO, 1 tablet at 12/03/19 1355 Physical Examination: Temp: [36.3 C (97.4 F)-36.7 C (98.1 F)] Pulse: [67-81] Resp: [18-20] BP: (98-136)/(50-69) MAP (mmHg): [69-73] Intake/Output Summary (Last 24 hours) at 12/03/20192043 Last data filed at 12/03/2019 1545 Gross per 24 hour Intake 400 ml Output 3550 ml Net -3150 ml General: alert and oriented x2, no apparent distress HEENT: pupils equal, round, reactive to light Neck: full range of motion Lungs: no crackles, right lung reduced breath sounds and positive egophony Cardio: RRR, S1, S2 normal; no murmurs appreciated Abdomen: soft; non-tender; distended; normoactive bowel sounds : not examined Rectal: not examined Extremities: 3+edema with chronic venous stasis changes Skin: no rashes Neuro: cranial nerves II through XII grossly intact Labs/Imaging/Pathology - reviewed EKG : RBBB and bifascicular block, no baseline ECG to compare Echocardiography : Left Ventricle The left ventrical is severely dilated. LV mass index 183 g/m2 and RWT 0.32 consistent wtih severe eccentric LVH. Left ventricular systolic function is severely reduced. Ejection Fraction=20-25%. Diastolic dysfunction. Severe Inferior , anteroseptal and inferoseptal wall hypokinesis. There are regional wall motion abnormalities as specified. Right Ventricle The right ventricle is normal in size and function. There is normal right ventricular wall thickness. Atria The left atrium is severely dilated. Right atrial size is normal. Mitral Valve The mitral valve is normal. There is mild mitral regurgitation. Tricuspid Valve The tricuspid valve is normal. Estimated RA pressure is 0-5 mmHg. Insufficient Tricuspid regurgitation jet to estimate RVSP. Aortic Valve The aortic valve is mildly thickened and calcified. The mean aortic valve gradient measures 20.9 mmHg. The peak to peak aortic valve gradient measures 38.3 mmHg. Measured by the continuity equation, the aortic valve area is 1.4cm2. Moderate valvular aortic stenosis. Mild aortic regurgitation. Pulmonic Valve The pulmonic valve is not well visualized. Page 1 of 2 11/27/2019 Great Vessels The aortic root is normal size. Pericardium/Pleural There is no pericardial effusion. The pericardium appears normal. Summary Statements A two-dimensional transthoracic echocardiogram with M-mode and Doppler was performed. The study was technically adequate. Compared to prior study, changes are noted. Left ventricular systolic function is severely reduced. Ejection Fraction=20-25% . Diastolic dysfunction. There are regional wall motion abnormalities as specified. Moderate valvular aortic stenosis with mild aortic regurgitation. The left atrium is severely dilated. Cardiac Cath : None available Assessment/Plan: Bob Dhaliwal is a 54 year old male admitted with: 1. Decompensated cirrhosis with large ascites, s/p 11 L paracentesis 2. Acute renal failure ( intravascular depleted with third spacing due to low albumin) mixed of HRS and pre-renal 3. Acute on chronic HFrEF 20-25% NYHA class Iv stage C 4. PVC's frequent 10% 5. Moderate to large R pleural effusion 6. Medical noncompliance, hx of polysubstance abuse Developed acute renal failure in the setting of IV diuresis and paracentesis, now kidney function improved Recommendations: EGD tomorrow to evaluate for esophageal varesis before proceeding with left heart cath ischemiawork up for HFrEF Hyperkalemia : consider reducing the dose of spironolactone. Continue current management with aspirin 81 mg , coreg , and lasix , keep net negative. monitor electrolytes and mg daily Patient was seen and examined with Faculty Dr Joseph Gaines MD General hr leader ICENOW ADMINISTRATOR Associated attestation - Richy Ruiz MD - 12/04/2019 1:03 PM CSTI personally examined the patient on 12/03/[address] Gaines's note as written. I actively participated in the decision-making process. Please see the fellow's note for additional details. Zaheer Mackenzie RN - 12/03/2019 3:58 PM CSTCare Management Continued Stay Assessment LOS Day: 7 Estimated /Planned Discharge Date: 12/04/19 Sherri male 54 year old Date CM/SW last Face to Face completed with patient/family: 12/03/19 Funding source: Payor: MEDICARE / Plan: MEDICARE PART A & B / Product Type: Medicare / Insurance DC train planner: self PCP:Greer Gaviria Patient/Family/MPOA/Caregiver Engaged with Transitional Care Plan: yes Patient/Family/MPOA/Caregiver concurs with proposed discharge plan: yes Name, Relationship to Patient and contact number of individual acting on behalf of the patient: Ex sister in law: Tamera Dhaliwal: [phone] Edwin Jaurez: [phone] Chief Complaint/Admitting Dx:Ascites RIGHT PLUERAL EFFUSION Hospital Problems: Decompensated hepatic cirrhosis E44.0 Moderate protein calorie malnutrition Summary of hospital course: Bob Dhaliwal is a 54y/o male with hx ofHCV cirrhosis(MELD -Na 23), HFref (EF 20-25%) NYHA IV stage C, aortic stenosis, COPD (on 2L home O2), tobaccoabuse, polysubstance abuse who was admitted for acute decompensated cirrhosis in thesetting of diuretic and dietary non- compliance. On admission he underwent large volume paracentesis x 2 (w/11 L removed) - studies negative for SBP. He was concurrently receiving diuretic therapy for volume overload presumable 2/2 decompensated cirrhosis andHFrEF exacerbation.Hospital course was c/b oliguric ABDIAZIZ. He was placed on a short diuretic holiday and given albumin w/subsequent improvement in renal function and UOP. Patient was transferredto MICU for closer monitoring of intraabdominal pressure due to concerns for abdominal compartment syndrome. Intraabdominal pressures have been downtrending. Restarted on aggressive diuretic regimen, once renal function improved. EGD tomorrow, keep NPO past midnight CM/SW Interventions/Resources provided: Initial screening and initial discharge plan established MPOA form provided CM/SW Interventions/Resources still needed: follow up MPOA Anticipated Discharge Destination: Home If DC to home, who will support patient: self and Ex sister in law: Tamera Dhaliwal: [phone] Edwin Juarez: [phone] Anticipated DME needs: Walker Referrals sent: no If no, why/when will referral be sent:: closer to discharge Has patient been accepted: not applicable Revised plan if not accepted: What is the clinical care happening right now that must be done in the hospital and only the hospital: EGD in AM to clear for [facility] Please addend note following Length of Stay rounds and complete section below Were any recommendations made during LOS rounds on this patient:yes If yes, what new recommendations were made at LOS: MPOA follow up VU Spear, RN Hospice Team Lead [email or web address] O:[phone] F:[phone] aomi Fischer MD - 12/03/2019 12:36 PM CST Gastroenterology Progress Note Date of Service: 12/03/2019 12:36 Chief Complaint: Anasarca, CHF, Decompensated Cirrhosis, ABDIAZIZ SUBJECTIVE/ MAJOR EVENTS: - The patient feels well. PHYSICAL EXAM: Temp: [36.3 C (97.4 F)-36.4 C (97.6 F)] Pulse: [73-81] Resp: [18-22] BP: (115-140)/(60-69) MAP (mmHg): [70] Intake/Output Summary (Last 24 hours) at 12/03/2019 1236 Last data filed at 12/03/2019 0727 Gross per 24 hour Intake 400 ml Output 1475 ml Net -1075 ml General: Patient alert and oriented x4, No apparent distress. Cardiovascular: Regular rate and rhythm, no murmurs; 1+ LE edema. Respiratory: Clear to auscultation bilaterally. Abdomen: Distended, +ventral hernia, no tenderness Skin: +Venous stasis LABS/IMAGING - reviewed. ASSESSMENT/PLAN Bob Dhaliwal is a 54 year old male with PMH of CHF, COPD, substance use, admitted to the hospital with anasarca, GI consulted for: Decompensated HCV Cirrhosis MELD 16 ABDIAZIZ - Patient with decompensated HCV cirrhosis and CHF, admitted with anasarca. He developed ABDIAZIZ in the setting of LVP and aggressive diuresis. Kidney function improved with titrating his diuretics down. - Low salt diet. - Check HCV genptype - Continue current diuretic regimen. - Lactulose to achieve 3 bowel movements daily - EGD tomorrow, keep NPO past midnight Patient was discussed with Dr. Vargas. Please call with questions. Naomi Fischer MD PGY-4 Gastroenterology and Hepatology Pager [phone] CURRENT MEDICATIONS - reviewed. Current Facility-Administered Medications Medication Dose Route Frequency Last Rate Last Dose hydrOXYzine (ATARAX) tablet 10 mg 10 mg Oral Q6HPRN 10 mg at 12/02/19 2142 ramelteon (ROZEREM) tablet 8 mg 8 mg Oral QHS 8 mg at 12/02/19 2144 carvedilol (COREG) tablet 6.25 mg 6.25 mg Oral BID MEALS 6.25 mg at 12/03 0908 foLIC acid (FOLATE) tablet 1 mg 1 mg Oral DAILY 1 mg at 12/03/19 0908 furosemide (LASIX) tablet 80 mg 80 mg Oral DAILY 80 mg at 12/03/19 0908 ipratropium-albuterol (DUONEB) 0.5 mg-3 mg(2.5 mg base)/3 mL nebulizer solution 3 mL 3 mL Inhalation Q4H 3 mL at 12/03/19 1421 lactulose (CEPHULAC) solution 30 mL 30 mL Oral QID 30 mL at 12/03/19 1205 spironolactone (ALDACTONE) tablet 200 mg 200 mg Oral DAILY 200 mg at 06/15 0908 thiamine (VITAMIN B1) 100 mg in NaCl 0.9% (NS) piggyback 100 mg IV Piggyback DAILY 100 mg at 12/03/19 0908 dextrose 10% (D10W) bolus infusion 250 mL 250 mL IV Infusion PRN - SEE INSTRUCTIONS heparin (porcine) injection 5,000 Units 5,000 Units Subcutaneous Q12H 5, 000 Units at 12/03/200808 nicotine (NICODERM) 21 mg/24 hr patch 1 Patch 1 Patch Topical Q24H 1 Patch at 12/03/19 0909 Miconazole Nitrate (DERMAFUNGAL) 2 % ointment Topical BID triamcinolone acetonide (TRIDERM) 0.1 % cream Topical DAILY aspirin chewable tablet 81 mg 81 mg Oral DAILY 81 mg at 12/03/19 0908 acetaminophen-codeine (TYLENOL #3) 300-30 mg tablet 1 tablet 1 tablet Oral Q4HPRN 1 tablet at12/03/19 1038 HYDROcodone-acetaminophen (NORCO 5) 5-325 mg tablet 1 tablet 1 tablet Oral Q6HPRN 1 tablet at12/03/19 1355 ICENOW ADMINISTRATOR Associated attestation - Chivo Vargas MD - 12/03/2019 5:12 PM CSTI agree with the assessment and recommendations as detailed in Dr. Draper 's note on 12/03/2019, Brian was a part of the decision making process. Moustapha Ferrer MD - 12/03/2019 7:35 AM CST PGY- 1 [facility] Team Progress Note Date of Service: 12/03/2019 07:35 Chief Complaint: SOB and abdominal swelling 24-HOUR EVENTS: NAEO SUBJECTIVE: Patient reports feeling better. He sleeps in the recliner. He had 7 BM yesterday and 2 already today. His breathing is better. PHYSICAL EXAM: Vitals: 12/03/19 0400 12/03/19 0657 12/03/19 0707 12/03/19 0727 BP: 132/65 115/60 Pulse: 81 76 79 81 Resp: 20 18 18 18 Temp: 36.4 C (97.5 F) 36.4 C (97.6 F) TempSrc: Oral Axillary SpO2: 97% 96% 98% 91% Weight: Height: General: alert and oriented x 4; in no distress; off NC Lungs: crackles Cardio: S1, S2 normal; no murmurs, rubs or gallops, tachycardic Abdomen: distension improving; non TTP; normoactive bowel sounds Extremities: b/l LE pitting edema with venous stasis dermatitis LABS/IMAGING - reviewed, pertinent results as below: Reviewed ASSESSMENT/PLAN Bob Dhaliwal is a 54 year old male with PMH as listed above, admitted to the hospital with: Hyperkalemia - lasix IV 20mg - recheck BMP in PM 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 Has been having good UOP on current diuresis. Will avoid large volume paracentesis. 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 - coreg 3.125 mg bid; consider uptitrating as tolerated - ASA 81 mg daily - holding entresto + digoxin at this time. If renal function remains stable , consider restarting - f/u cardiology recs - patient will need EGD prior to LHC - Keep K > 4, Mg > 2 - Avoid QTc prolonging agents Insomnia Anxiety/Agitation - Melatonin QHS - c/w thiamine + folate PAIN: Improved Tylenol and [place] Prophylaxis: DVT- Contraindicated: Thrombocytopenia Stress Ulcer: no indication for prophylaxis Code Status: addressed: full code Disposition Anticipated Discharge Date : TBD Barriers to Discharge: diurese regimen Moustapha Ferrer MD Internal Medicine, PGY-1 [facility] Team Pager#[phone] END OF DAILY PROGRESS NOTE Hospital Course Bob Dhaliwal is a 54 y/o male with 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 On admission heunderwent large volume paracentesis x 2 (w/11 L removed) - studies negative for SBP. He was concurrently receiving diuretic therapy for volume overload presumable 2/2 decompensated cirrhosis and HFrEF exacerbation. Hospital course was c/b oliguric ABDIAZIZ. He was placed on a short diuretic holiday and given albumin w/ subsequent improvement in renal function and UOP. Patient was transferred to MICU for closer monitoring of intraabdominal pressure due to concerns for abdominal compartment syndrome. Intraabdominal pressures have been downtrending. Restarted on aggressive diuretic regimen, once renal function improved. Of note patient w/frequent PVC's, NSVT x 1, and mild troponin leak. EF similar to 04/2019, but decreased from 2017. Started on coreg per cardiology recs. Stable for TTF. Patient diuresing well. Chronic/Resolved Conditions: HTN Oliguric ABDIAZIZ, resolved Hyponatremia, resolved Hypochloremia, resolved Hepatic Encephalopathy, resolved ?Abdominal Compartment syndrome; ruled out Discharge Planning: - need outpatient f/u for untreated HCV - patient need to follow up with his network project manager within a week or schedule outpatient within 10 days after d/c. - Need BMP one week after discharge and continue same other plans and medications. CURRENT MEDICATIONS - reviewed.Electronically signed by Jose Erazo MD at 05/2020 1:28 PM SERVICENOW ADMINISTRATOR Associated attestation - Jose Erazo MD - 12/03/2019 1:28 PM CSTAttending History Supplement: I personally examined the patient on 12/03/[address] Ferrer's resident note as written. I actively participated in the decision-making process. Please see the resident's note for additional details. Jose Erazo MD Chief Resident Clinical Floater Operator Department of Internal Medicine #[id number] 12/03/2019Alfredo Gaines MD - 12/02/2019 4:43 PM CST Cardiology progress Note 12/02/2019 16:43 Bob Dhaliwal is a 54 year old male with history of HCV cirrhosis, Acute on chronic systolic HF ( EF 20-25%) NYHA class IV stage C, moderate aortic stenosis, COPD (on 2L home O2), HTN, tobacco use, and polysubstance abuse admitted from OSH for decompensated HCV cirrhosis. Troponin elevated 0.099. Telemetry notes frequent PVCs Patient denies chest pain, palpitation, dizziness syncope. Endorses sob, orthopnea, abd distention. ROS: 12 points ROS were obtained and negative except mentioned in HPI Past Medical History: Diagnosis Date CHF (congestive heart failure) COPD (chronic obstructive pulmonary disease) DM (diabetes mellitus) HTN (hypertension) History reviewed. No pertinent surgical history. Family History Problem Relation Age of Onset Other - see comments Mother Epilepsy No Significant Medical Problems Father Social History Socioeconomic History Marital status: Single Spouse name: Not on file Number of children: Not on file Years of education: Not on file Highest education level: Not on file Occupational History Not on file Social Needs Financial resource strain: Not on file Food insecurity: Worry: Not on file Inability: Not on file Transportation needs: Medical: Not on file Non-medical: Not on file Tobacco Use Smoking status: Current Some Day Smoker Types: Cigarettes Smokeless tobacco: Never Used Tobacco comment: 2 packs a week Substance and Sexual Activity Alcohol use: No Drug use: Yes Types: Marijuana, Methamphetamines, Benzodiazepines Sexual activity: Not on file Lifestyle Physical activity: Days per week: Not on file Minutes per session: Not on file Stress: Not on file Relationships Social connections: Talks on phone: Not on file Gets together: Not on file Attends confucianist service: Not on file Active member of club or organization: Not on file Attends meetings of clubs or organizations: Not on file Relationship status: Not on file Intimate partner violence: Fear of current or ex partner: Not on file Emotionally abused: Not on file Physically abused: Not on file Forced sexual activity: Not on file Other Topics Concern Not on file Social History Narrative Not on file No Known Allergies Prior to Admission medications Medication Sig Start Date End Date Taking? Authorizing Provider digoxin 250 mcg (0.25 mg) tablet Take 250 mcg by mouth daily. Yes Doctor Unassigned, [place] furosemide (LASIX) 40 mg tablet Take 40 mg by mouth every morning and evening. Yes Doctor Unassigned, [place] sacubitril-valsartan (ENTRESTO) 24-26 mg tablet Take 1 tablet by mouth 2 (two) times daily. Yes Doctor Unassigned, [place] albuterol 90 mcg/actuation inhaler Inhale 2 Puffs every 6 (six) hours as needed for Wheezing or Shortness of Breath. 06/15/19 Moustapha Ferrer MD ipratropium 17 mcg/actuation inhaler Inhale 2 Puffs 3 (three) times daily. Moustapha Ferrer MD predniSONE 10 mg tablet Take 3 tablets by mouth daily. 06/15/19 Christian Mejia MD temazepam 15 mg capsule Take 1 capsule by mouth at bedtime as needed for Insomnia. 10/19/17 Saul Woodall MBBS Current Facility-Administered Medications: carvedilol (COREG) tablet 6.25 mg, 6.25 mg, Oral, BID MEALS, Brigido, Hailey Samuel DO, 6.25 mg at12/02/19 1642 foLIC acid (FOLATE) tablet 1 mg, 1 mg, Oral, DAILY, Leda Alvarado DO, 1 mg at 12/02/19 0759 furosemide (LASIX) tablet 80 mg, 80 mg, Oral, DAILY, Leo Jones MD, 80 mg at 12/02/200700 ipratropium-albuterol (DUONEB) 0.5 mg-3 mg(2.5 mg base)/3 mL nebulizer solution 3 mL, 3 mL, Inhalation, Q4H, Leda Alvarado DO, 3 mL at 12/02/19 1559 lactulose (CEPHULAC) solution 30 mL, 30 mL, Oral, QID, Brigido, Sally-Lizzie, DO, Stopped at 12/01/191999 spironolactone (ALDACTONE) tablet 200 mg, 200 mg, Oral, DAILY, Leo Jones MD, 200 mg at 12/02/19 0759 thiamine (VITAMIN B1) 100 mg in NaCl 0.9% (NS) piggyback, 100 mg, IV Piggyback, DAILY, Leda Alvarado DO, 100 mg at 12/02/19 1027 dextrose 10% (D10W) bolus infusion 250 mL, 250 mL, IV Infusion, PRN - SEE INSTRUCTIONS, Junior Fofana DO heparin (porcine) injection 5,000 Units, 5,000 Units, Subcutaneous, Q12H, Junior Fofana DO, 5,000 Units at 12/01/19 0817 nicotine (NICODERM) 21 mg/24 hr patch 1 Patch, 1 Patch, Topical, Q24H, Maya Alatorre MD, 1 Patch at 12/02/19 0759 Miconazole Nitrate (DERMAFUNGAL) 2 % ointment, , Topical, BID, Kandis Parada DO triamcinolone acetonide (TRIDERM) 0.1 % cream, , Topical, DAILY, Kandis Parada DO aspirin chewable tablet 81 mg, 81 mg, Oral, DAILY, Moustapha Ferrer MD, 81 mg at 12/02/19 0759 acetaminophen-codeine (TYLENOL #3) 300-30 mg tablet 1 tablet, 1 tablet, Oral, Q4HPRN, Julio Womack DO, 1 tablet at 12/02/19 1034 HYDROcodone-acetaminophen (NORCO 5) 5-325 mg tablet 1 tablet, 1 tablet, Oral, Q6HPRN, Julio Womack DO, 1 tablet at 12/02/19 1642 Physical Examination: Temp: [36.2 C (97.2 F)-36.8 C (98.3 F)] Pulse: [63-90] Resp: [18-20] BP: (103-140)/(61-70) MAP (mmHg): [70-81] Intake/Output Summary (Last 24 hours) at 12/02/2019 1643 Last data filed at 12/02/2019 1552 Gross per 24 hour Intake Output 1125 ml Net -1125 ml General: alert and oriented x2, no apparent distress HEENT: pupils equal, round, reactive to light Neck: full range of motion Lungs: no crackles, right lung reduced breath sounds and positive egophony Cardio: RRR, S1, S2 normal; no murmurs appreciated Abdomen: soft; non-tender; distended; normoactive bowel sounds : not examined Rectal: not examined Extremities: 3+edema with chronic venous stasis changes Skin: no rashes Neuro: cranial nerves II through XII grossly intact Labs/Imaging/Pathology - reviewed EKG : RBBB and bifascicular block, no baseline ECG to compare Echocardiography : Left Ventricle The left ventrical is severely dilated. LV mass index 183 g/m2 and RWT 0.32 consistent wtih severe eccentric LVH. Left ventricular systolic function is severely reduced. Ejection Fraction=20-25%. Diastolic dysfunction. Severe Inferior , anteroseptal and inferoseptal wall hypokinesis. There are regional wall motion abnormalities as specified. Right Ventricle The right ventricle is normal in size and function. There is normal right ventricular wall thickness. Atria The left atrium is severely dilated. Right atrial size is normal. Mitral Valve The mitral valve is normal. There is mild mitral regurgitation. Tricuspid Valve The tricuspid valve is normal. Estimated RA pressure is 0-5 mmHg. Insufficient Tricuspid regurgitation jet to estimate RVSP. Aortic Valve The aortic valve is mildly thickened and calcified. The mean aortic valve gradient measures 20.9 mmHg. The peak to peak aortic valve gradient measures 38.3 mmHg. Measured by the continuity equation, the aortic valve area is 1.4cm2. Moderate valvular aortic stenosis. Mild aortic regurgitation. Pulmonic Valve The pulmonic valve is not well visualized. Page 1 of 2 11/27/2019 Great Vessels The aortic root is normal size. Pericardium/Pleural There is no pericardial effusion. The pericardium appears normal. Summary Statements A two-dimensional transthoracic echocardiogram with M-mode and Doppler was performed. The study was technically adequate. Compared to prior study, changes are noted. Left ventricular systolic function is severely reduced. Ejection Fraction=20-25% . Diastolic dysfunction. There are regional wall motion abnormalities as specified. Moderate valvular aortic stenosis with mild aortic regurgitation. The left atrium is severely dilated. Cardiac Cath : None available Assessment/Plan: Bob Dahliwal is a 54 year old male admitted with: 1. Decompensated cirrhosis with large ascites, s/p 11 L paracentesis 2. Acute renal failure ( intravascular depleted with third spacing due to low albumin) mixed of HRS and pre-renal 3. Acute on chronic HFrEF 20-25% NYHA class Iv stage C 4. PVC's frequent 10% 5. Moderate to large R pleural effusion 6. Medical noncompliance, hx of polysubstance abuse Developed acute renal failure in the setting of IV diuresis and paracentesis, now kidney function improved Recommendations: Please ask GI if the patient is possible candidate for liver transplant, and for EGD to evaluate for esophageal varesis before proceeding with left heart cath ( ischemia work up for HFrEF) Continue current management with aspirin 81 mg , coreg , lasix and spironolactone , keep net negative. monitor electrolytes and mg daily Patient was seen and examined with Faculty Dr Joseph Gaines MD General hr leader ICENOW ADMINISTRATOR Associated attestation - Richy Ruiz MD - 12/03/2019 2:06 PM CSTI personally examined the patient on 12/02/[address] Gaines's note as written. I actively participated in the decision-making process. Please see the fellow's note for additional details. Kandis Parada DO - 12/02/2019 11:39 AM CST PGY- 2 [facility] Team Progress Note Date of Service: 12/02/2019 11:39 Chief Complaint: SOB and abdominal swelling 24-HOUR EVENTS: Transfer from ICU SUBJECTIVE: Patient reports felling better, Denies SOB, still complain of abdominal swelling. PHYSICAL EXAM: Vitals: 12/02/19 0500 12/02/19 0735 12/02/19 0830 12/02/19 0839 BP: 107/63 113/70 Pulse: 82 83 83 89 Resp: 18 18 19 20 Temp: 36.2 C (97.2 F) 36.6 C (97.8 F) TempSrc: Oral Oral SpO2: 94% 90% 90% 94% Weight: Height: General: alert and oriented x 4; in no distress; off NC Lungs: course breath throughout Cardio: S1, S2 normal; no murmurs, rubs or gallops, tachycardic Abdomen: distended; non TTP; normoactive bowel sounds Extremities: b/l LE pitting edema with venous stasis dermatitis LABS/IMAGING - reviewed, pertinent results as below: Reviewed ASSESSMENT/PLAN Bob Dhaliwal is a 54 year old male with PMH as listed above, admitted to the hospital with: Decompensated HCV cirrhosis(MELD-Na 23) 2/2 dietary/meds non-compliance Hepatic hydrothorax Untreated HCV Hyperbilirubinemia (indirect), Elevated aminotransferases (AST 2x ALT), Hypoalbuminemia Patient has been intravascularly repleted with IB albumin. Has been having good UOP on current diuresis. Will avoid large volume paracentesis. - Lasix 80mg + Spironolactone 200mg daily (goal of net negative 1-2 L daily) - lactulose 30 QID (titrate to 3-4 BM's daily) R sided pleural effusion- 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 - c/w aggressive diuresis - c/w duonebs + pulmonary toilet + IS - nicotine patch - O2 to maintain sats > 92% Decompensated HFrEF(EF 20-25%), Regional WMA PVCs- 10% frequency, NSVT (14 beats) Prolonged QTc Moderate aortic stenosis HTN Given commodities, Cardiology recommends medical management for his cardiac condition. - coreg 3.125 mg bid; consider uptitrating as tolerated - ASA 81 mg daily - holding entresto + digoxin at this time. 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 On admission heunderwent large volume paracentesis x 2 (w/11 L removed) - studies negative for SBP. He was concurrently receiving diuretic therapy for volume overload presumable 2/2 decompensated cirrhosis and HFrEF exacerbation. Hospital course was c/b oliguric ABDIAZIZ. He was placed on a short diuretic holiday and given albumin w/ subsequent improvement in renal function and UOP. Patient was transferred to MICU for closer monitoring of intraabdominal pressure due to concerns for abdominal compartment syndrome. Intraabdominal pressures have been downtrending. Restarted on aggressive diuretic regimen, once renal function improved. Of note patient w/frequent PVC's, NSVT x 1, and mild troponin leak. EF similar to 04/2019, but decreased from 2017. Started on coreg per cardiology recs. Stable for TTF. Chronic/Resolved Conditions: HTN Oliguric ABDIAZIZ, resolved Hyponatremia, resolved Hypochloremia, resolved Hepatic Encephalopathy, resolved ?Abdominal Compartment syndrome; ruled out Discharge Planning: - need outpatient f/u for untreated HCV CURRENT MEDICATIONS - reviewed.Electronically signed by Jose Erazo MD at 04/2020 4:43 PM SERVICENOW ADMINISTRATOR Associated attestation - Jose Erazo MD - 12/02/2019 4:43 PM CSTAttending History Supplement: I personally examined the patient on 12/02/[address] Parada's resident note as written. I actively participated in the decision-making process. Please see the resident's note for additional details. Jose Erazo MD Chief Resident [id number] Clinical Floater Operator Department of Internal Medicine #[id number] 12/02/2019TaNaomi crandall MD - 12/02/2019 7:39 AM CST Gastroenterology Progress Note Date of Service: 12/02/2019 07:39 Chief Complaint: Anasarca, CHF, Decompensated Cirrhosis, ABDIAZIZ SUBJECTIVE/ MAJOR EVENTS: - The patient feels better overall. States that he did not know about salt restriction before admission. - UOP 3.5L. PHYSICAL EXAM: Temp: [36.2 C (97.2 F)-37.3 C (99.1 F)] Heart Rate (monitor): [88-98] Pulse: [75-98] Resp: [17-26] BP: (102-130)/(62-71) MAP (mmHg): [77-83] Intake/Output Summary (Last 24 hours) at 12/02/2019 0739 Last data filed at 12/02/2019 0500 Gross per 24 hour Intake 400 ml Output 3150 ml Net -2750 ml General: Patient alert and oriented x4, No apparent distress. Cardiovascular: Regular rate and rhythm, no murmurs; 1+ LE edema. Respiratory: Clear to auscultation bilaterally. Abdomen: Distended, +ventral hernia, no tenderness Skin: +Venous stasis LABS/IMAGING - reviewed. ASSESSMENT/PLAN Bob Dhaliwal is a 54 year old male with PMH of CHF, COPD, substance use, admitted to the hospital with anasarca, GI consulted for: Decompensated HCV Cirrhosis MELD 13 ABDIAZIZ - Patient with decompensated HCV cirrhosis and CHF, admitted with anasarca. He developed ABDIAZIZ in the setting of LVP and aggressive diuresis. Kidney function improved with titrating his diuretics down. - Low salt diet. Consider nutrition consult for education about it. - Continue current diuretic regimen. - Lactulose to achieve 3 bowel movements daily Patient was discussed with Dr. Vargas. Please call with questions. GI will sign off Naomi Fiscehr MD PGY-4 Gastroenterology and Hepatology Pager [phone] CURRENT MEDICATIONS - reviewed. Current Facility-Administered Medications Medication Dose Route Frequency Last Rate Last Dose carvedilol (COREG) tablet 6.25 mg 6.25 mg Oral BID MEALS 6.25 mg at 12/01 1752 foLIC acid (FOLATE) tablet 1 mg 1 mg Oral DAILY Stopped at 12/01/19 0900 furosemide (LASIX) tablet 80 mg 80 mg Oral DAILY 80 mg at 12/01/19 0820 ipratropium-albuterol (DUONEB) 0.5 mg-3 mg(2.5 mg base)/3 mL nebulizer solution 3 mL 3 mL Inhalation Q4H 3 mL at 12/02/19 0344 lactulose (CEPHULAC) solution 30 mL 30 mL Oral QID Stopped at 12/01/191999 spironolactone (ALDACTONE) tablet 200 mg 200 mg Oral DAILY 200 mg at 04/15 0820 thiamine (VITAMIN B1) 100 mg in NaCl 0.9% (NS) piggyback 100 mg IV Piggyback DAILY 100 mg at 12/01/19 1413 dextrose 10% (D10W) bolus infusion 250 mL 250 mL IV Infusion PRN - SEE INSTRUCTIONS heparin (porcine) injection 5,000 Units 5,000 Units Subcutaneous Q12H 5, 000 Units at 12/01/200717 nicotine (NICODERM) 21 mg/24 hr patch 1 Patch 1 Patch Topical Q24H 1 Patch at 12/01/19 0638 Miconazole Nitrate (DERMAFUNGAL) 2 % ointment Topical BID triamcinolone acetonide (TRIDERM) 0.1 % cream Topical DAILY aspirin chewable tablet 81 mg 81 mg Oral DAILY 81 mg at 12/01/19 0817 acetaminophen-codeine (TYLENOL #3) 300-30 mg tablet 1 tablet 1 tablet Oral Q4HPRN 1 tablet at12/01/19 0817 HYDROcodone-acetaminophen (NORCO 5) 5-325 mg tablet 1 tablet 1 tablet Oral Q6HPRN 1 tablet at12/02/19 0122 ICENOW ADMINISTRATOR Associated attestation - Chivo Vargas MD - 12/02/2019 3:27 PM CSTI have personally seen and examined the patient. I agree with the assessment and recommendations asdetailed in note by on 12/02/2019, and I was a part of the decision making process. Moustapha Ferrer MD - 12/01/2019 11:22 AM CST PGY- 1 [facility] Team Acceptance/Progress Note Date of Service: 12/01/2019 11:23 Chief Complaint: SOB and abdominal swelling 24-HOUR EVENTS: Transfer from ICU SUBJECTIVE: Patient is awake and eating lunch at bedside off NC. He notes his breathing and abdominal pain has improved. He feels the breathing treatments have really helped him. He has 11 BM yesterday and is urinating a lot. Patient denies any other complaints. PHYSICAL EXAM: Vitals: 12/01/19 0600 12/01/19 0702 12/01/19 0800 12/01/19 0900 BP: 138/78 110/64 Pulse: 90 89 98 93 Resp: Temp: 36.8 C (98.2 F) 36.6 C (97.9 F) 36.5 C (97.7 F) TempSrc: SpO2: 91% 93% 90% 90% Weight: Height: General: alert and oriented x 4; in no distress; off NC Lungs: crackles Cardio: S1, S2 normal; no murmurs, rubs or gallops, tachycardic Abdomen: distended; non TTP; normoactive bowel sounds Extremities: b/l LE pitting edema with venous stasis dermatitis LABS/IMAGING - reviewed, pertinent results as below: Reviewed ASSESSMENT/PLAN Bob Dhaliwal is a 54 year old male with PMH as listed above, admitted to the hospital with: Respiratory alkalosis w/ metabolic compensation - improved Acute onChronic hypoxic respiratory failure- improved Possible hepatopulmonary syndrome Interstitial pulmonary edema R sided pleural effusion- 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 - c/w aggressive diuresis - avoidlarge volume paracentesis - c/w duonebs + pulmonary toilet + IS - nicotine patch - O2 to maintain sats > 92% Decompensated HFrEF(EF 20-25%), Regional WMA PVCs- 10% frequency, NSVT (14 beats) Prolonged QTc Moderate aortic stenosis HTN Pt w/mild troponemia - trop have peaked and downtrended. TTE showed regional WMA (April 2019 echo showed global hypokinesis rather than regional).Pt reports he had a cath done at OSH, will wait till weekday to obtain OSH records. Pt w/occasional PVC's on tele - placed on coreg per cards recs. Had episode of NSVT. Trop continued to downtrend and EKG showed no acute changes from prior, but did show worsening of QTc (551) - coreg 3.125 mg bid; consider uptitrating as tolerated - ASA 81 mg daily - holding entresto + digoxin at this time. If renal function remains stable , consider restarting - obtain OSH records for [facility] - f/u cardiology recs - Keep K > 4, Mg > 2 - Avoid QTc prolonging agents Decompensated HCV cirrhosis(MELD-Na 23) 2/2 dietary/meds non-compliance Hepatic Encephalopathy, resolved ?Abdominal Compartment syndrome Hepatic hydrothorax Untreated HCV Hyperbilirubinemia (indirect), Elevated aminotransferases (AST 2x ALT), Hypoalbuminemia Patient's intraabdominal pressures have down-trended (23 to 21 this AM). - Lasix 80mg + Spironolactone 200mg daily (goal of net negative 1-2 L daily) - lactulose 30 QID (titrate to 3-4 BM's daily) - consider therapeutic para (2-3L) if renal function stable Chronic normocytic anemia Chronic thrombocytopenia Hgb has been downtrending since admission. No signs of gross bleeding. Labs consistent with hemolysis (elevated LDH and retic count, low haptoglobin) -daily CBC - transfuse blood products as necessary Insomnia Anxiety/Agitation - Melatonin QHS - c/w thiamine + folate PAIN: Improved Tylenol and [place] Prophylaxis: DVT- Contraindicated: Thrombocytopenia Stress Ulcer: no indication for prophylaxis Code Status: addressed: full code Disposition Anticipated Discharge Date : TBD Barriers to Discharge: [facility]? 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 On admission heunderwent large volume paracentesis x 2 (w/11 L removed) - studies negative for SBP. He was concurrently receiving diuretic therapy for volume overload presumable 2/2 decompensated cirrhosis and HFrEF exacerbation. Hospital course was c/b oliguric ABDIAZIZ. He was placed on a short diuretic holiday and given albumin w/ subsequent improvement in renal function and UOP. Patient was transferred to MICU for closer monitoring of intraabdominal pressure due to concerns for abdominal compartment syndrome. Intraabdominal pressures have been downtrending. Restarted on aggressive diuretic regimen, once renal function improved. Of note patient w/frequent PVC's, NSVT x 1, and mild troponin leak. EF similar to 04/2019, but decreased from 2017. Started on coreg per cardiology recs. Stable for TTF. 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 On admission he underwent large volume paracentesis x 2 (w/ 11 L removed) - studies negative for SBP. He was concurrently receiving diuretic therapy for volume overload presumably 2/2 decompensated cirrhosis and HFrEF exacerbation. Hospital course was c/b oliguric ABDIAZIZ. He was placed on a short diuretic holiday and given albumin w/ subsequent improvement in renal function and UOP. Patient was transferred to MICU for closer monitoring of intra-abdominal pressures due to concerns for abdominal compartment syndrome. In the MICU, intra-abdominal pressures were WNL and diuretics were re-started with normalization of creatinine and good diuresis w/ weaning of oxygen and improvement of volume status. He was also started on Coreg for HTN/BP & short runs of NSVT. - Continue diuresis as tolerated by kidney function - Obtain OSH records from previous possible cardiac catheterization - Would consider [facility] this admission if he has not had one before, as if he has ICM/reversible cardiac dysfunction, this is likely one of the only reversible causes that would improve his EF/kidney function and toleration of diuresis - Would avoid paracentesis and stick with diuretics as does not appear to tolerate fluid shifts well - Titrate Coreg as needed for NSVT Leo Jones MD Internal Medicine PGY-3 Pager: [phone] yed , HaileyLizzieDO - 12/01/2019 12:03 AM CST MICU Progress/Transfer Note Date of Service: 12/01/2019 00:03 Reason for ICU admission: 2 ICU Day: 2 Intubation Day: n/a Code Status: Full Last 24 hour events (major events): - Given Lasix 40mg/Aldactone 100mg w/approximately 1.5 L UOP - Started on low dose Coreg per cardiology recommendation Subjective: Dyspnea has improved with increased diuresis and breathing treatments. He has had 8 BM's today. C/o increasing anxiety, but otherwise feels much improved from yesterday. He denies f/c, cp, palpitations, n/v/d at this time. Ventilator Bundle: Sedation/Analgesia + RASS: N/A Stress ulcer prophylaxis: none DVT prophylaxis: heparin Insulin drip: no Nutrition: oral . Lines (with dates): PIV, 18g, LUE midline - placed 11/28/19 PIV, 20g, R arm - placed 11/29/19 Walls: 16 fr - placed 11/30/19 Intake/Output: Intake/Output Summary (Last 24 hours) at 12/01/2019 0003 Last data filed at 11/30/2019 2300 Gross per 24 hour Intake 1779.2 ml Output 2825 ml Net -1045.8 ml Physical Exam: Temp: [36.8 C (98.2 F)-37.8 C (100 F)] Heart Rate (monitor): [91-110] Pulse: [89-110] Resp: [16-26] BP: (106-165)/(60-106) MAP (mmHg): [79-108] Constitutional: alert and oriented x 4 (person, place, date/time and situation) ; no apparent distress Resp: Diminished breath sounds at the bases Cardio: S1, S2 appreciated. Tachycardic GI: Distended, mild diffuse upper abdominal discomfort to palpation, (+) fluid wave MSK: BLE w/chronic venous stasis changes. 2-3+ pitting edema Neuro: no focal deficits. No asterixis Labs (pertinent only)/Imaging: Microbiology: Negative Assessment/Plan: Bob Dhaliwal is a 54 year old male admitted with: Neuro/Psych Insomnia Polysubstance use Encephalopathy- improving Anxiety/Agitation Mentation appears improved from yesterday. Pt still intermittently anxious/ agitated. Low suspicion for withdrawal given he has been here almost 1 week, but will continue to monitor. Of note patient denies alcohol use for "at least a decade", but in April 2019 at OSH was started on librium for concerns of withdrawal. - Melatonin QHS - monitor for changes in mentation - lactulose as below - c/w thiamine + folate Resp Respiratory alkalosis w/ metabolic compensation - improved Acute onChronic hypoxic respiratory failure - improved Possible hepatopulmonary syndrome Interstitial pulmonary edema R sided pleural effusion- likely hepatic hydrothorax Reported COPD - No PFTs on file Tobacco use/polysubstance use Pt w/decreased O2 needs, almost back on home 2L. Suspect hypoxia 2/2 pulmonary edema, worsening hydrothorax and restricted diaphragmatic movement from ascites.Chart review revealed patient had DARIEL inJ2018 that showed possible intrapulmonary shunting, in this case could represent hepatopulmonarysyndrome. - c/w aggressive diuresis - will benefit from repeat paracentesis when HRS is ruled out and renal function improves- avoid large volume paracentesis - c/w duonebs + pulmonary toilet + IS - nicotine patch - O2 to maintain sats > 92% Cardiovascular Decompensated HFrEF(EF 20-25%), Regional WMA PVCs- 10% frequency, NSVT (14 beats) Prolonged QTc Moderate aortic stenosis HTN LVEF appears stable from hospitalization in April 2019 (EF 25-29%). Unclear reasoning for reason in drop in LVEF from 2017 - ischemic vs nonischemic causes. . Pt w/mild troponemia - trop have peaked anddowntrended. TTE showed regional WMA (April 2019 echo showed global hypokinesis rather than regional). Pt reports he had a cath done at OSH, will wait till weekday to obtain OSH records. Pt w/occasionalPVC's on tele - placed on coreg per cards recs. Had episode of NSVT. Trop continued to downtrend andEKG showed no acute changes from prior, but did show worsening of QTc (551) - coreg 3.125 mg bid; consider uptitrating as tolerated - ASA 81 mg daily - holding entresto + digoxin at this time. If renal function remains stable, consider restarting - obtain OSH records for [facility] - f/u cardiology recs - Keep K > 4, Mg > 2 - Avoid QTc prolonging agents FEN/GI Decompensated HCV cirrhosis(MELD-Na 23) 2/2 dietary/meds non-compliance ?Abdominal Compartment syndrome Hepatic hydrothorax Untreated HCV Hyperbilirubinemia (indirect), Elevated aminotransferases (AST 2x ALT), Hypoalbuminemia Presenting with decompensated cirrhosis and has undergone 2 paracentesis with a total of 11 L removed. Etiology is likely 2/2 diuretics and diet non-compliance - US negative for portal vein thrombosis.Initial blood cx's, and ascitic fluid studies have all been negative. Current hospital course was complicated by oliguric ABDIAZIZ. Since albumin trial, and re-initiating diuretics patient has had improvement in UOP and renal function. Also patient's intraabdominal pressures have down-trended (23 to 21 this AM), and his lactic acid negative. - Lasix 80mg + Spironolactone 200mg daily (goal of net negative 1-2 L daily) - c/w monitoring bladder pressures. If it continues to rise, consider therapeutic para - lactulose 30 QID (titrate to 3-4 BM's daily) - consider therapeutic para (2-3L) if renal function stable ID No acute issues. -para- diagnostic studies negative for SBP -f/u cultures Renal Oliguric ABDIAZIZ, resolved Hyponatremia, resolved Hypochloremia, resolved Respiratory alkalosis w/ metabolic compensation Pt's renal function and electrolyte derangements have improved. Suspect ABDIAZIZ 2/2 intravascular depletion from LVP + diuresis. UOP improved w/albumin. Likely patient was slow to adjust to large fluid shifts. FeUrea, and hx consistent w/ pre-renal etiology. US showed no evidence of post-obstructive picture. Will continue with aggressive diuresis regimen, aiming for net negative 1-2L daily. - c/w diuretic regimen as above - continue holding Digoxin, Entresto for now while uptitrating diuretic regimen - avoid nephrotoxic agents and renally dose meds - continue holding at this time, continue to hold digoxin, entresto (ARB containing), diuretics. - f/u nephrology recs -monitor for electrolyte abnormalities/signs of uremia Endo DM type II - SSI Heme Chronic normocytic anemia Chronic thrombocytopenia Hgb has been downtrending since admission. No signs of gross bleeding. - check iron studies, LDH, haptoglobin, and retic count - daily CBC - transfuse blood products as necessary Other DVT prophylaxis: heparin Dispo: MICU Prognosis: guarded Junior Fofana, DO Internal Medicine, PGY-1 #[id number] Hospital Course Bob Dhaliwal is a 54 y/o male with 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 On admission heunderwent large volume paracentesis x 2 (w/11 L removed) - studies negative for SBP. He was concurrently receiving diuretic therapy for volume overload presumable 2/2 decompensated cirrhosis and HFrEF exacerbation. Hospital course was c/b oliguric ABDIAZIZ. He was placed on a short diuretic holiday and given albumin w/ subsequent improvement in renal function and UOP. Patient was transferred to MICU for closer monitoring of intraabdominal pressure due to concerns for abdominal compartment syndrome. Intraabdominal pressures have been downtrending. Restarted on aggressive diuretic regimen, once renal function improved. Of note patient w/frequent PVC's, NSVT x 1, and mild troponin leak. EF similar to 04/2019, but decreased from 2017. Started on coreg per cardiology recs. ICENOW ADMINISTRATOR Associated attestation - Prasanna Carroll MD - 12/01/2019 9:04 AM CSTI personally examined the patient on 12/01/[address] Fofana's resident note. I actively participated in the decision-making process. Please see the resident's note for additional details. Leo Jones MD - 11/30/2019 5:05 PM CSTMedicine Intensive Care Unit Brief Note 12-Hour Events: - Started Lasix 40/Aldactone 100, about 1.5 L UOP today (not documented yet) - Extra doses of the above tonight and increased dosages tomorrow - Coreg 3.125 mg BID as per Cards, no current plan for further inpatient evaluation d/t liver decompensation - Bladder pressure 23 mm Hg Plan: - Continue diuresis - Follow renal function - Inpatient RHC/LHC would be ideal - Possible TTF tomorrow - No records available till Monday - Repeat a bladder pressure in the morning and if increasing despite diuretics would consider a small/moderate volume para again then Leo Jones MD Internal Medicine PGY-3 Pager: [phone] Jose Shukla MD - 11/30/2019 2:52 PM CST Cardiology progress Note 11/30/2019 14:52 Bob Dhaliwal is a 54 year old male with history of HCV cirrhosis, Acute on chronic systolic HF ( EF 20-25%) NYHA class IV stage C, moderate aortic stenosis, COPD (on 2L home O2), HTN, tobacco use, and polysubstance abuse admitted from OSH for decompensated HCV cirrhosis. Troponin elevated 0.099. Telemetry notes frequent PVCs Subjective: Denies chest pain, reports sob significantly improves, endorses abd distention Past Medical History: Diagnosis Date CHF (congestive heart failure) COPD (chronic obstructive pulmonary disease) DM (diabetes mellitus) HTN (hypertension) History reviewed. No pertinent surgical history. Family History Problem Relation Age of Onset Other - see comments Mother Epilepsy No Significant Medical Problems Father Social History Socioeconomic History Marital status: Single Spouse name: Not on file Number of children: Not on file Years of education: Not on file Highest education level: Not on file Occupational History Not on file Social Needs Financial resource strain: Not on file Food insecurity: Worry: Not on file Inability: Not on file Transportation needs: Medical: Not on file Non-medical: Not on file Tobacco Use Smoking status: Current Some Day Smoker Types: Cigarettes Smokeless tobacco: Never Used Tobacco comment: 2 packs a week Substance and Sexual Activity Alcohol use: No Drug use: Yes Types: Marijuana, Methamphetamines, Benzodiazepines Sexual activity: Not on file Lifestyle Physical activity: Days per week: Not on file Minutes per session: Not on file Stress: Not on file Relationships Social connections: Talks on phone: Not on file Gets together: Not on file Attends confucianist service: Not on file Active member of club or organization: Not on file Attends meetings of clubs or organizations: Not on file Relationship status: Not on file Intimate partner violence: Fear of current or ex partner: Not on file Emotionally abused: Not on file Physically abused: Not on file Forced sexual activity: Not on file Other Topics Concern Not on file Social History Narrative Not on file No Known Allergies Prior to Admission medications Medication Sig Start Date End Date Taking? Authorizing Provider digoxin 250 mcg (0.25 mg) tablet Take 250 mcg by mouth daily. Yes Doctor Unassigned, [place] furosemide (LASIX) 40 mg tablet Take 40 mg by mouth every morning and evening. Yes Doctor Unassigned, [place] sacubitril-valsartan (ENTRESTO) 24-26 mg tablet Take 1 tablet by mouth 2 (two) times daily. Yes Doctor Unassigned, [place] albuterol 90 mcg/actuation inhaler Inhale 2 Puffs every 6 (six) hours as needed for Wheezing or Shortness of Breath. 06/15/19 Moustapha Ferrer MD ipratropium 17 mcg/actuation inhaler Inhale 2 Puffs 3 (three) times daily. Moustapha Ferrer MD predniSONE 10 mg tablet Take 3 tablets by mouth daily. 06/15/19 Christian Mejia MD temazepam 15 mg capsule Take 1 capsule by mouth at bedtime as needed for Insomnia. 10/19/17 Saul Woodall MBBS Current Facility-Administered Medications: foLIC acid (FOLATE) tablet 1 mg, 1 mg, Oral, DAILY, Leda Alvarado DO, 1 mg at 11/30/19 0831 furosemide (LASIX) tablet 40 mg, 40 mg, Oral, DAILY, Andrei Sesay MD, 40 mg at 11/30/19 1010 ipratropium-albuterol (DUONEB) 0.5 mg-3 mg(2.5 mg base)/3 mL nebulizer solution 3 mL, 3 mL, Inhalation, Q4H, Leda Alvarado DO, 3 mL at 11/30/19 1105 spironolactone (ALDACTONE) tablet 100 mg, 100 mg, Oral, DAILY, Andrei Sesay MD, 100 mg at 11/30/19 1010 thiamine (VITAMIN B1) 100 mg in NaCl 0.9% (NS) piggyback, 100 mg, IV Piggyback, DAILY, Leda Alvarado DO, 100 mg at 11/30/19 0832 dextrose 10% (D10W) bolus infusion 250 mL, 250 mL, IV Infusion, PRN - SEE INSTRUCTIONS, Junior Fofana DO heparin (porcine) injection 5,000 Units, 5,000 Units, Subcutaneous, Q12H, Junior Fofana DO, 5,000 Units at 11/30/19 0836 nicotine (NICODERM) 21 mg/24 hr patch 1 Patch, 1 Patch, Topical, Q24H, Maya Alatorre MD, 1 Patch at 11/30/19 0537 trimethobenzamide (TIGAN) injection 100 mg, 100 mg, Intramuscular, Q6HPRN, Moustapha Ferrer MD, 100 mg at 11/29/19 1302 Miconazole Nitrate (DERMAFUNGAL) 2 % ointment, , Topical, BID, Kandis Parada DO triamcinolone acetonide (TRIDERM) 0.1 % cream, , Topical, DAILY, Kandis Parada DO aspirin chewable tablet 81 mg, 81 mg, Oral, DAILY, Moustapha Ferrer MD, 81 mg at 11/30/19 0831 lactulose (CEPHULAC) solution 45 mL, 45 mL, Oral, QID, Kandis Parada DO, 45 mL at 11/30/19 1417 acetaminophen-codeine (TYLENOL #3) 300-30 mg tablet 1 tablet, 1 tablet, Oral, Q4HPRN, Michaelor, Julio, DO, 1 tablet at 11/30/19 1023 HYDROcodone-acetaminophen (NORCO 5) 5-325 mg tablet 1 tablet, 1 tablet, Oral, Q6HPRN, Michaelor, Julio, DO, 1 tablet at 11/30/19 0546 Physical Examination: Temp: [36.7 C (98 F)-37 C (98.6 F)] Heart Rate (monitor): [95-105] Pulse: [89-102] Resp: [16-26] BP: (101-160)/(55-83) MAP (mmHg): [74-96] Intake/Output Summary (Last 24 hours) at 11/30/2019 1452 Last data filed at 11/30/2019 1024 Gross per 24 hour Intake 768.2 ml Output 1470 ml Net -701.8 ml General: alert and oriented x2, no apparent distress HEENT: pupils equal, round, reactive to light Neck: full range of motion Lungs: no crackles, right lung reduced breath sounds and positive egophony Cardio: RRR, S1, S2 normal; no murmurs appreciated Abdomen: soft; non-tender; severely distended; normoactive bowel sounds : not examined Rectal: not examined Extremities: 3+edema with chronic venous stasis changes Skin: no rashes Neuro: cranial nerves II through XII grossly intact Labs/Imaging/Pathology - reviewed EKG : RBBB and bifascicular block, no baseline ECG to compare Echocardiography : Left Ventricle The left ventrical is severely dilated. LV mass index 183 g/m2 and RWT 0.32 consistent wtih severe eccentric LVH. Left ventricular systolic function is severely reduced. Ejection Fraction=20-25%. Diastolic dysfunction. Severe Inferior , anteroseptal and inferoseptal wall hypokinesis. There are regional wall motion abnormalities as specified. Right Ventricle The right ventricle is normal in size and function. There is normal right ventricular wall thickness. Atria The left atrium is severely dilated. Right atrial size is normal. Mitral Valve The mitral valve is normal. There is mild mitral regurgitation. Tricuspid Valve The tricuspid valve is normal. Estimated RA pressure is 0-5 mmHg. Insufficient Tricuspid regurgitation jet to estimate RVSP. Aortic Valve The aortic valve is mildly thickened and calcified. The mean aortic valve gradient measures 20.9 mmHg. The peak to peak aortic valve gradient measures 38.3 mmHg. Measured by the continuity equation, the aortic valve area is 1.4cm2. Moderate valvular aortic stenosis. Mild aortic regurgitation. Pulmonic Valve The pulmonic valve is not well visualized. Page 1 of 2 11/27/2019 Great Vessels The aortic root is normal size. Pericardium/Pleural There is no pericardial effusion. The pericardium appears normal. Summary Statements A two-dimensional transthoracic echocardiogram with M-mode and Doppler was performed. The study was technically adequate. Compared to prior study, changes are noted. Left ventricular systolic function is severely reduced. Ejection Fraction=20-25% . Diastolic dysfunction. There are regional wall motion abnormalities as specified. Moderate valvular aortic stenosis with mild aortic regurgitation. The left atrium is severely dilated. Cardiac Cath : None available Assessment/Plan: Bob Dhaliwal is a 54 year old male admitted with: 1. Decompensated cirrhosis with large ascites, s/p 11 L paracentesis 2. Acute renal failure ( intravascular depleted with third spacing due to low albumin) mixed of HRS and pre-renal 3. Acute on chronic HFrEF 20-25% NYHA class Iv stage C 4. PVC's frequent 10% 5. Moderate to large R pleural effusion 6. Medical noncompliance, hx of polysubstance abuse Recommendations: Continue with current diuresis regimen, Cr is improving F/u nephro recs Given current liver decompensation and renal issue we will recommend medical management for his cardiac condition. High risk of KIMBERLY. Start coreg 3.125 bid C/w aspirin Statin and ACEI are contraindicated at this time Once patient is stable please refer to cardiology clinic outpt to be evaluated for further workup. Patient was seen and examined with Faculty Dr Dubon DO Dry Room Operator [id number] ICENOW ADMINISTRATOR Associated attestation - Abelardo Saeed MD - 11/30/2019 8:[address] Watts, I examined this patient. I agree with resident's note as written. Abelardo Kenny MDAlberto chacko, [facility] - 11/29/2019 4:37 PM CST NEPHROLOGY CONSULT NOTE 11/29/2019 16:38 Reason For consult: Bob Dhaliwal is a 54 year old male with history of HCV cirrhosis, chronic combined systolic and diastolic HF, COPD (on 2L home O2), HTN, tobacco use, and polysubstance abuse admitted from OSH for decompensated HCV cirrhosis. Double in creatinine. Possible HRS vs. Over diuresis. Consulted By: Moustapha Ferrer MD CC: SOB and abd swelling HPI: Bob Dhaliwal is a 54 year old male with history of HCV cirrhosis, chronic combined systolic and diastolic HF, COPD (on 2L home O2), HTN, tobacco use, and polysubstance abuse admitted from OSH for decompensated HCV cirrhosis. Patient reports having increased SOB and worsening of abd swelling in the past several days. He had a therapeutic para 2 weeks ago in OSH. Since then, he states that he has notbeen taking his diuretics because he does not think they work very well. He reports to try to stick to low sodium diet. He went to [facility] to "ask for help but they could not". He then went home for anhour and called the EMS for SOB. He was sent to [facility] and received some breathing treatment before transferring to [facility] for further care. Patient seen by nephrology, he seems in distress, c/o abdominal pain, and has extremity, his Cr. Increased to 1.7, b/l 0.75, his has abdominal distention, low UOP and sign of abdominal compartment syndrome. Past Medical History: Diagnosis Date CHF (congestive heart failure) COPD (chronic obstructive pulmonary disease) DM (diabetes mellitus) HTN (hypertension) No past surgical history on file. Social History Tobacco Use Smoking status: Current Some Day Smoker Types: Cigarettes Smokeless tobacco: Never Used Tobacco comment: 2 packs a week Substance Use Topics Alcohol use: No Drug use: Yes Types: Marijuana, Methamphetamines, Benzodiazepines Family History Problem Relation Age of Onset Other - see comments Mother Epilepsy No Significant Medical Problems Father No Known Allergies ROS A 12 point ROS was done pertinent positives have been discussed in HPI ,other review of system is negative. Medications: Current Facility-Administered Medications Medication Dose Route Frequency Last Rate Last Dose [START ON 11/30/2019] albumin (PLASBUMIN) 25 % injection 100 g 100 g IV Infusion ONCE nicotine (NICODERM) 21 mg/24 hr patch 1 Patch 1 Patch Topical Q24H 1 Patch at 11/29/19 0547 trimethobenzamide (TIGAN) injection 100 mg 100 mg Intramuscular Q6HPRN 100 mg at 11/29/19 1302 Miconazole Nitrate (DERMAFUNGAL) 2 % ointment Topical BID triamcinolone acetonide (TRIDERM) 0.1 % cream Topical DAILY aspirin chewable tablet 81 mg 81 mg Oral DAILY 81 mg at 11/29/19 0754 lactulose (CEPHULAC) solution 45 mL 45 mL Oral QID 45 mL at 11/29/19 1306 lidocaine 1% (PF) (XYLOCAINE) injection 5 mL 5 mL Subcutaneous PRN NaCl 0.9% (NS) injection 10 mL 10 mL Slow IV Push PRN acetaminophen-codeine (TYLENOL #3) 300-30 mg tablet 1 tablet 1 tablet Oral Q4HPRN 1 tablet at11/29/19 0952 HYDROcodone-acetaminophen (NORCO 5) 5-325 mg tablet 1 tablet 1 tablet Oral Q6HPRN 1 tablet at11/29/19 1419 Physical Exam BP: (97-119)/(45-82) Temp: [36.6 C (97.8 F)-37 C (98.6 F)] Temp source: Axillary (11/29 1600) Pulse: [91-107] Resp: [18-24] SpO2: [95 %-98 %] Height: -- Weight: -- BMI (calculated): -- Wt Readings from Last 3 Encounters: 11/26/19 118.4 kg (261 lb 1.6 oz) 06/13/19 94.6 kg (208 lb 8 oz) 10/18/17 95.3 kg (210 lb) General: no acute distress and alert x4 HEENT: NC/AT, no Icterus Cardiovascular: Heart regular, rate, rhythm, no murmurs; positive LLE edema Respiratory: clear to auscultation, no respiratory distress GI: abd tense, tender, massive distended, sluggish BS, ascitic fluid shift Intake/Output Summary (Last 24 hours) at 11/29/2019 1638 Last data filed at 11/29/2019 1432 Gross per 24 hour Intake 1076 ml Output 725 ml Net 351 ml Assessment and Plan: 54 year old male was admitted for abdominal distention and SOB, due to ascitis ABDIAZIZ with Cr. 1.7 on presentation and b/l <1, likely worsen kidney function due to compression of bilateral renal vein from intra-abdominal compartment pressure, but pre-renal and post renal need to be roled out as well. Patient central veins seems collapsing by US likely due to low venous return from IVC due to compression due to massive ascitis, which is consistent with increase intraabdominal pressure, which can mask intravascular volume status and give false impression that the patient is volume depleted although he's having ascitis and UE and LE edema. Recommendations: - Place an walls and measure bladder pressure - Need more ascitis fluid removal - Ok to give Albumin and lasix after paracentesis, to shift interstitial fluid to intravascular - Patient need to be transferred to ICU for close monitoring -Check Ur. Lytes ( Urine Na, Cr, K, and chloride) Ur. Osm and s. Osm, Kidney US Avoid any nephrotoxic agents -Keep MAP > 65 -Treat underlying condition or sepsis and improve cardiac function if patient has low EF -Strict I&Os -Daily BMP, Phos and Mg, replete if deficient -UA And Ur. Cultures - No indication for HOTEL RESERVATION AGENT at this time Thanks for allowing us to participated in the patient care, please contact me or nephrology dept. for any question or concern Patient seen, examined and discussed with attending network project manager Dr. Ryan Dominguez MD Nephrology and Hypertension Fellow Pager: [phone] ICENOW ADMINISTRATOR Associated attestation - Leena Davis MD - 12/01/2019 11:16 PM CSTI have personally seen and examined this patient with Dr. Dominguez on 11/29/2019 . I have reviewed the assessment and plan as outlined in the progress note and agree with the overall approach to this patient. I personally participated in the decision-making process as relates to this patient's medical condition. Please refer to Dr. Dominguez's progress note for details of the medical care provided. Renae Kolb MD - 11/29/2019 4:14 PM CST Pulmonary & Critical Care Medicine MICU Fellow Note This patient's case and situation have been discussed with the ED/primary service. The patient has been accepted for transfer to the MICU. The MICU charge nurse and nursing program director have been notified for bed arrangement. The patient will remain under the care of the current primary team until the patient arrives to the MICU. Renae Kolb MD PGY4 Fellow Pulmonary & Critical Care Medicine Pager [phone] Ashleigh Johnson - 11/29/2019 2:59 PM CSTSocial Work Note: 11/29/2019 2:59 PM SW provided patient with MPOA. Patient was eating, patient informed SW he will be able to complete on own. SW/CC will continue to assist patient with discharge planning. Ashleigh Lovell LMSW Care Management Team Gas Station Attendant [email or web address] (P) [phone] (C) [phone] (not for patient use). 11/29/19.3:02 PM. Ashleigh Johnson - 11/29/2019 2:00 PM CSTCare Management Social Functional Assessment Patient Name: Bob Dhaliwal Age: [age] year old Sex: male Patient's Previous Admission Date at [facility]: 10/18/2017 Current diagnosis and co-morbidities: ASITES RIGHT PLUERAL EFFUSION Readmission Questions: Was patient discharged from any acute care hospital within the last 30 days: No Social Functional Assessment: Primary language spoken/preferred: Ugandan Mental Status: Alert & Oriented to Person,Place & Time Information given by: Self;Other(ex sister in law: Tamera Dhaliwal: [phone]) Patient's support system: Other Name and number of support system: Ex sister in law: Tamera Dhailwal: Edwin Juarez: [phone] Primary Resistance Machine Welder Setter: Self MPOA: No(Would like to assign sister in law Tamera Dhaliwal: [phone]) Living Arrangement: Home: single story Address of living arrangement : [address] [place] [address]([address] patient will be living after discharge, will be moving with stephanie. ) Barriers to returning home: Declining function;Lack of 24/7 supervision Baseline functional status- ambulation: Dependent Functional status-baseline personal care: Dependent Baseline functional status- driving: Dependent Baseline functional status- grocery shopping: Dependent Functional status-baseline housekeeping: Dependent Functional status-baseline meal prep: Dependent Current functional status same as prior: Yes Do you have a PCP?: Yes Name of PCP: Dr. Greer Gaviria [facility] Agency: No Provider Services: No DME Company: No Equipment: O2:Portable tank available;O2: LPM(Family will scrap picker from old living enviroment, and confirm who supplied it with SW. ) Hemodialysis: No Community resources utilized: CHP;Prescription Assistance Program(s);[facility] Resources Fact Sheet Funding Resources: Medicare A & B Prescription coverage plan: Self Pay Pharmacy where meds are filled: Other(New pharmacy) Other pharmacy: [facility]: [address] [place] [address], [place] [address] (P) [phone] Expected mode of discharge transportation: Family Name and phone number of the friend or family member picking up the patient: Edwin Juarez: [phone] Additional Recommendations for DC: Patient needs o2 for discharge. Additional info required for discharge planning: No needs identified Recommended discharge plan: New placement SFA Complete: Social Functional Assessment complete: Yes Alcohol Use Screening (AUDIT-C) How often do you have a drink containing alcohol?: Never SCORE: 0 Did patient elect to have resources provided: No Role of Care Management explained. Any issues or concerns with obtaining/affording your medications at home: yes. Describe: Patient states not medication coverage, SW will follow up with pharmacy previously uses and verify if patient has medication benefits. Patient uses Goodrx, and other discount programs for meds. Are you or your support system able to scrap picker medications at discharge: yes. Describe: New supportwill be picking up meds, Edwin Juarez. Anticipated discharge is home, Patient will be moving in with Edwin Juarez, [phone], to [place] [address]. Patient will be transported by family, SW/CC will continue to assist patient with discharge planning. Ashleigh Lovell LMSW Care Management Team Gas Station Attendant [email or web address] (p) [phone] 11/29/19.2:00 PM. Alfredo Clarke MD - 11/29/2019 11:40 AM CST Cardiology progress Note 11/29/2019 11:41 Bob Dhaliwal is a 54 year old male with history of HCV cirrhosis, Acute on chronic systolic HF ( EF 20-25%) NYHA class IV stage C, moderate aortic stenosis, COPD (on 2L home O2), HTN, tobacco use, and polysubstance abuse admitted from OSH for decompensated HCV cirrhosis. Troponin elevated 0.099. Telemetry notes frequent PVCs Patient denies chest pain, palpitation, dizziness syncope. Endorses sob, orthopnea, abd distention. ROS: 12 points ROS were obtained and negative except mentioned in HPI Past Medical History: Diagnosis Date CHF (congestive heart failure) COPD (chronic obstructive pulmonary disease) DM (diabetes mellitus) HTN (hypertension) No past surgical history on file. Family History Problem Relation Age of Onset Other - see comments Mother Epilepsy No Significant Medical Problems Father Social History Socioeconomic History Marital status: Single Spouse name: Not on file Number of children: Not on file Years of education: Not on file Highest education level: Not on file Occupational History Not on file Social Needs Financial resource strain: Not on file Food insecurity: Worry: Not on file Inability: Not on file Transportation needs: Medical: Not on file Non-medical: Not on file Tobacco Use Smoking status: Current Some Day Smoker Types: Cigarettes Smokeless tobacco: Never Used Tobacco comment: 2 packs a week Substance and Sexual Activity Alcohol use: No Drug use: Yes Types: Marijuana, Methamphetamines, Benzodiazepines Sexual activity: Not on file Lifestyle Physical activity: Days per week: Not on file Minutes per session: Not on file Stress: Not on file Relationships Social connections: Talks on phone: Not on file Gets together: Not on file Attends confucianist service: Not on file Active member of club or organization: Not on file Attends meetings of clubs or organizations: Not on file Relationship status: Not on file Intimate partner violence: Fear of current or ex partner: Not on file Emotionally abused: Not on file Physically abused: Not on file Forced sexual activity: Not on file Other Topics Concern Not on file Social History Narrative Not on file No Known Allergies Prior to Admission medications Medication Sig Start Date End Date Taking? Authorizing Provider digoxin 250 mcg (0.25 mg) tablet Take 250 mcg by mouth daily. Yes Doctor Unassigned, [place] furosemide (LASIX) 40 mg tablet Take 40 mg by mouth every morning and evening. Yes Doctor Unassigned, [place] sacubitril-valsartan (ENTRESTO) 24-26 mg tablet Take 1 tablet by mouth 2 (two) times daily. Yes Doctor Unassigned, [place] albuterol 90 mcg/actuation inhaler Inhale 2 Puffs every 6 (six) hours as needed for Wheezing or Shortness of Breath. 06/15/19 Moustapha Ferrer MD ipratropium 17 mcg/actuation inhaler Inhale 2 Puffs 3 (three) times daily. Moustapha Ferrer MD predniSONE 10 mg tablet Take 3 tablets by mouth daily. 06/15/19 Christian Mejia MD temazepam 15 mg capsule Take 1 capsule by mouth at bedtime as needed for Insomnia. 10/19/17 Saul Woodall MBBS Current Facility-Administered Medications: albumin (PLASBUMIN) 25 % injection 100 g, 100 g, IV Infusion, ONCE, Moustapha Ferrer MD [START ON 11/30/2019] albumin (PLASBUMIN) 25 % injection 100 g, 100 g, IV Infusion, ONCE, Moustapha Ferrer MD nicotine (NICODERM) 21 mg/24 hr patch 1 Patch, 1 Patch, Topical, Q24H, Maya Alatorre MD, 1 Patch at 11/29/19 0547 Miconazole Nitrate (DERMAFUNGAL) 2 % ointment, , Topical, BID, Kandis Parada DO triamcinolone acetonide (TRIDERM) 0.1 % cream, , Topical, DAILY, Kandis Parada DO aspirin chewable tablet 81 mg, 81 mg, Oral, DAILY, Moustapha Ferrer MD, 81 mg at 11/29/19 0754 lactulose (CEPHULAC) solution 45 mL, 45 mL, Oral, QID, Kandis Parada DO, 45 mL at 11/29/19 0754 lidocaine 1% (PF) (XYLOCAINE) injection 5 mL, 5 mL, Subcutaneous, PRN, Moustapha Ferrer MD NaCl 0.9% (NS) injection 10 mL, 10 mL, Slow IV Push, PRN, Moustapha Ferrer MD acetaminophen-codeine (TYLENOL #3) 300-30 mg tablet 1 tablet, 1 tablet, Oral, Q4HPRN, Sydor, Julio, DO, 1 tablet at 11/29/19 0952 HYDROcodone-acetaminophen (NORCO 5) 5-325 mg tablet 1 tablet, 1 tablet, Oral, Q6HPRN, Michaelor, Julio, DO, 1 tablet at 11/29/19 0353 Physical Examination: Temp: [36.3 C (97.3 F)-37 C (98.6 F)] Pulse: [86-107] Resp: [18-24] BP: (91-119)/(45-63) MAP (mmHg): [70] Intake/Output Summary (Last 24 hours) at 11/29/2019 1141 Last data filed at 11/29/2019 1016 Gross per 24 hour Intake 1209 ml Output 575 ml Net 634 ml General: alert and oriented x2, no apparent distress HEENT: pupils equal, round, reactive to light Neck: full range of motion Lungs: no crackles, right lung reduced breath sounds and positive egophony Cardio: RRR, S1, S2 normal; no murmurs appreciated Abdomen: soft; non-tender; distended; normoactive bowel sounds : not examined Rectal: not examined Extremities: 3+edema with chronic venous stasis changes Skin: no rashes Neuro: cranial nerves II through XII grossly intact Labs/Imaging/Pathology - reviewed EKG : RBBB and bifascicular block, no baseline ECG to compare Echocardiography : Left Ventricle The left ventrical is severely dilated. LV mass index 183 g/m2 and RWT 0.32 consistent wtih severe eccentric LVH. Left ventricular systolic function is severely reduced. Ejection Fraction=20-25%. Diastolic dysfunction. Severe Inferior , anteroseptal and inferoseptal wall hypokinesis. There are regional wall motion abnormalities as specified. Right Ventricle The right ventricle is normal in size and function. There is normal right ventricular wall thickness. Atria The left atrium is severely dilated. Right atrial size is normal. Mitral Valve The mitral valve is normal. There is mild mitral regurgitation. Tricuspid Valve The tricuspid valve is normal. Estimated RA pressure is 0-5 mmHg. Insufficient Tricuspid regurgitation jet to estimate RVSP. Aortic Valve The aortic valve is mildly thickened and calcified. The mean aortic valve gradient measures 20.9 mmHg. The peak to peak aortic valve gradient measures 38.3 mmHg. Measured by the continuity equation, the aortic valve area is 1.4cm2. Moderate valvular aortic stenosis. Mild aortic regurgitation. Pulmonic Valve The pulmonic valve is not well visualized. Page 1 of 2 11/27/2019 Great Vessels The aortic root is normal size. Pericardium/Pleural There is no pericardial effusion. The pericardium appears normal. Summary Statements A two-dimensional transthoracic echocardiogram with M-mode and Doppler was performed. The study was technically adequate. Compared to prior study, changes are noted. Left ventricular systolic function is severely reduced. Ejection Fraction=20-25% . Diastolic dysfunction. There are regional wall motion abnormalities as specified. Moderate valvular aortic stenosis with mild aortic regurgitation. The left atrium is severely dilated. Cardiac Cath : None available Assessment/Plan: Bob Dhaliwal is a 54 year old male admitted with: 1. Decompensated cirrhosis with large ascites, s/p 11 L paracentesis 2. Acute renal failure ( intravascular depleted with third spacing due to low albumin) mixed of HRS and pre-renal 3. Acute on chronic HFrEF 20-25% NYHA class Iv stage C 4. PVC's frequent 10% 5. Moderate to large R pleural effusion 6. Medical noncompliance, hx of polysubstance abuse Recommendations: Hold lasix today due to acute renal failure Check urine electrolytes to calculate Fe urea bladder scan and if he is retaining place a walls Consult nephrology GI consult for evaluation of decompensated liver cirrhosis and HRS Stop digoxin and Hold spironolactone due to acute renal failure Avoid hypotension ( hold Entresto , could be restarted after resolution of the congestion/overloaded phase and after appropraite diuresis. Patient was seen and examined with Faculty Dr Joseph Gaines MD General hr leader ICENOW ADMINISTRATOR Associated attestation - Richy Ruiz MD - 12/02/2019 10:33 AM CSTI personally examined the patient on 11/29/[address] Gaines's note as written. I actively participated in the decision-making process. Please see the fellow's note for additional details. Moustapha Ferrer MD - 11/29/2019 7:08 AM CST PGY- 1 [facility] Team Progress/Transfer Note Date of Service: 11/29/2019 07:08 Chief Complaint: SOB and abdominal swelling 24-HOUR EVENTS: NAEO SUBJECTIVE: Patient is awake and eating breakfast. He is oriented x4. Patient is still having a lot of difficulty breathing. Patient still having abdominal distension with pain. Denies any new complaints. PHYSICAL EXAM: Vitals: 11/28/19 2321 11/29/19 0127 11/29/19 0346 11/29/19 0358 BP: 106/52 97/45 111/56 Pulse: 107 105 103 Resp: 20 18 Temp: 36.8 C (98.3 F) 36.6 C (97.8 F) TempSrc: Oral Oral SpO2: 96% 96% 96% Weight: Height: I: 842 O: 650 BM: 6x General: alert and oriented x 4; in no distress Lungs: crackles, wheezes, decreased breath sounds on right side Cardio: S1, S2 normal; no murmurs, rubs or gallops, tachycardic Abdomen: distended; tender; normoactive bowel sounds Extremities: b/l LE edema with venous stasis dermatitis LABS/IMAGING - reviewed, pertinent results as below: Reviewed Corrected Ca 9.0 BCX 11/27: NGTD ASSESSMENT/PLAN Bob Dhaliwal is a 54 year old male with PMH as listed above, admitted to the hospital with: ABDIAZIZ likely 2/2 over diuresis vs. HRS vs. Abdominal compartment syndrome Per cardiology, patient needs diureses holiday based on TTE on 11/26 results. Will hold diuretics for now. PVR 75cc. Patient needs bladder pressure transducer measurement, which cannot be performed on the floor. Urine studies indicate a pre-renal ABDIAZIZ. Nephrology and primary team concerned for abdominal compartment syndrome. - d/c diuretics per Cards recs - albumin challenge - Nephrology consulted, will f/u recs - renal US - consider surgery consult if abdominal compartment syndrome Decompensated HCV cirrhosis with severe ascites, MELD 17, 2/2 Medication and diet noncompliance Untreated HCV S/p diagnostic and therapeutic paracentesis on 11/26. (-) SBP. Repeat para on 11/28, removed ~3L. - d/c diuretics - fluid restriction - c/w lactulose 45 mg QID with BM goal of 2-3 - GI consulted, will f/u recs Acute on chronic combined combined HFrEF 20-25%, unclear if ischemic Significant drop in EF to 20-25% from 50-55% in 2017. Cardiology consulted. - d/c entresto - d/c dig - consulted cardiology, appreciate recs Right Pleural effusion ; new OSH CXR shows large right pleural effusion likely 2/2 volume overloaded status. Once patient is respiratory status improved and can lay flat, will benefit from IR thora - continue to monitor PAIN: Improved Tylenol and [place] Prophylaxis: DVT- Contraindicated: Thrombocytopenia Stress Ulcer: no indication for prophylaxis Code Status: addressed: full code Disposition Anticipated Discharge Date : TBD Barriers to Discharge: volume overload Moustapha Ferrer MD Internal Medicine, PGY-1 [facility] Team Pager#[phone] END OF DAILY PROGRESS NOTE Hospital Course Bob Dhaliwal is a 54 year old male with history of HCV cirrhosis, chronic combined systolic and diastolic HF, COPD (on 2L home O2), HTN, tobacco use, and polysubstance abuse admitted from OSH for decompensated HCV cirrhosis. Diagnostic and therapeutic paracentesis on 11/26. (-) SBP. Significant dropin EF to 20-25% from 50-55% in 2017 along with elevated troponin. Cardiology consulted, increased diuresis. Patient became altered likely 2/2 to ativan use vs. Hepatic encephalopathy. Patient no longer altered. B/L venous duplex negative for DVT. Repeat para on 11/28 removed ~3L. Developed ABDIAZIZ likely 2/2 overdiuresis, holding diuretics per cards recs. Chronic/Resolved Conditions: HTN AMS, likely 2/2 to ativan vs. Hepatic encephalopathy Discharge Planning: - need outpatient f/u for untreated HCV CURRENT MEDICATIONS - reviewed. ICENOW ADMINISTRATOR Associated attestation - Jose Erazo MD - 11/29/2019 4:53 PM CSTAttending History Supplement: I personally examined the patient on 11/29/[address] Ferrer's resident note as written. I actively participated in the decision-making process. Please see the resident's note for additional details. Briefly, Bob Dhaliwal is a 54 year old male admitted with acute on chronic decompensated HCV cirrhosis manifested by severe abdominal ascites, hepatosplenomegaly. He is status post therapeutic paracentesis. Diagnostic paracentesis was negative for SBP. Being treatment with albumin for possible co- existing hepatorenal syndrome. I am concern about possibility of abdominal compartment syndrome for thefollowing reasons: patient with new-onset oliguric kidney failure (i.e. end-organ dysfunction) in the setting of decompensated cirrhosis due to chronic liver disease with marked abdominal ascites; worsening hypoxic respiratory failure with increasing difficulty with oxygenation, has a tense abdomen with decreased bowel sounds on physical examination. To perform transduction of bladder pressure [Bladder pressure measurement - which cannot be done on the floor; to transfer to MICU] to assess for intra-abdominal hypertension; if this suspicion holds, patient may need surgical decompression of the abdomen; to consult general surgery nephrology consulted to guide management; management of ascites place NGT for bowel decompression Check lactic acid level Jose Erazo MD Chief Resident Clinical Floater Operator Department of Internal Medicine #[id number] 11/29/2019AlAlfredo soliz MD - 11/28/2019 12:50 PM CST Cardiology progress Note 11/28/2019 12:50 Bob Dhaliwal is a 54 year old male with history of HCV cirrhosis, Acute on chronic systolic HF ( EF 20-25%) NYHA class IV stage C, moderate aortic stenosis, COPD (on 2L home O2), HTN, tobacco use, and polysubstance abuse admitted from OSH for decompensated HCV cirrhosis. Troponin elevated 0.099. Telemetry notes frequent PVCs Patient denies chest pain, palpitation, dizziness syncope. Endorses sob, orthopnea, abd distention. ROS: 12 points ROS were obtained and negative except mentioned in HPI Past Medical History: Diagnosis Date CHF (congestive heart failure) COPD (chronic obstructive pulmonary disease) DM (diabetes mellitus) HTN (hypertension) No past surgical history on file. Family History Problem Relation Age of Onset Other - see comments Mother Epilepsy No Significant Medical Problems Father Social History Socioeconomic History Marital status: Single Spouse name: Not on file Number of children: Not on file Years of education: Not on file Highest education level: Not on file Occupational History Not on file Social Needs Financial resource strain: Not on file Food insecurity: Worry: Not on file Inability: Not on file Transportation needs: Medical: Not on file Non-medical: Not on file Tobacco Use Smoking status: Current Some Day Smoker Types: Cigarettes Smokeless tobacco: Never Used Tobacco comment: 2 packs a week Substance and Sexual Activity Alcohol use: No Drug use: Yes Types: Marijuana, Methamphetamines, Benzodiazepines Sexual activity: Not on file Lifestyle Physical activity: Days per week: Not on file Minutes per session: Not on file Stress: Not on file Relationships Social connections: Talks on phone: Not on file Gets together: Not on file Attends confucianist service: Not on file Active member of club or organization: Not on file Attends meetings of clubs or organizations: Not on file Relationship status: Not on file Intimate partner violence: Fear of current or ex partner: Not on file Emotionally abused: Not on file Physically abused: Not on file Forced sexual activity: Not on file Other Topics Concern Not on file Social History Narrative Not on file No Known Allergies Prior to Admission medications Medication Sig Start Date End Date Taking? Authorizing Provider digoxin 250 mcg (0.25 mg) tablet Take 250 mcg by mouth daily. Yes Doctor Unassigned, [place] furosemide (LASIX) 40 mg tablet Take 40 mg by mouth every morning and evening. Yes Doctor Unassigned, [place] sacubitril-valsartan (ENTRESTO) 24-26 mg tablet Take 1 tablet by mouth 2 (two) times daily. Yes Doctor Unassigned, [place] albuterol 90 mcg/actuation inhaler Inhale 2 Puffs every 6 (six) hours as needed for Wheezing or Shortness of Breath. 06/15/19 Moustapha Ferrer MD ipratropium 17 mcg/actuation inhaler Inhale 2 Puffs 3 (three) times daily. Moustapha Ferrer MD predniSONE 10 mg tablet Take 3 tablets by mouth daily. 06/15/19 Christian Mejia MD temazepam 15 mg capsule Take 1 capsule by mouth at bedtime as needed for Insomnia. 10/19/17 Saul Woodall MBBS Current Facility-Administered Medications: furosemide (LASIX) injection 40 mg, 40 mg, Slow IV Push, Q12H, Moustapha Ferrer MD, 40 mg at 11/28/19 1020 aspirin chewable tablet 81 mg, 81 mg, Oral, DAILY, Moustapha Ferrer MD, 81 mg at 11/28/19 0823 lactulose (CEPHULAC) solution 45 mL, 45 mL, Oral, QID, Kandis Parada, , 45 mL at 11/28/19 1127 lidocaine 1% (PF) (XYLOCAINE) injection 5 mL, 5 mL, Subcutaneous, PRN, Moustapha Ferrer MD NaCl 0.9% (NS) injection 10 mL, 10 mL, Slow IV Push, PRN, Moustapha Ferrer MD spironolactone (ALDACTONE) tablet 100 mg, 100 mg, Oral, DAILY, Moustapha Ferrer MD, 100 mg at 11/28/19 0824 acetaminophen-codeine (TYLENOL #3) 300-30 mg tablet 1 tablet, 1 tablet, Oral, Q4HPRN, Julio Womack DO, 1 tablet at 11/28/19 1244 digoxin (LANOXIN) tablet 0.25 mg, 250 mcg, Oral, DAILY, Kandis Parada DO , 0.25 mg at 11/28/200723 HYDROcodone-acetaminophen (NORCO 5) 5-325 mg tablet 1 tablet, 1 tablet, Oral, Q6HPRN, Julio Womack, , 1 tablet at 11/28/19 0917 sacubitril-valsartan (ENTRESTO) 24-26 mg tablet 1 tablet, 1 tablet, Oral, BID, Kandis Parada, , 1 tablet at 11/28/19 0917 Physical Examination: Temp: [36.2 C (97.2 F)-36.5 C (97.7 F)] Heart Rate (monitor): [97] Pulse: [54-101] Resp: [20-22] BP: (91-132)/(53-74) Intake/Output Summary (Last 24 hours) at 11/28/2019 1250 Last data filed at 11/28/2019 1145 Gross per 24 hour Intake 556 ml Output 200 ml Net 356 ml General: alert and oriented x2, no apparent distress HEENT: pupils equal, round, reactive to light Neck: full range of motion Lungs: no crackles, right lung reduced breath sounds and positive egophony Cardio: RRR, S1, S2 normal; no murmurs appreciated Abdomen: soft; non-tender; distended; normoactive bowel sounds : not examined Rectal: not examined Extremities: 3+edema with chronic venous stasis changes Skin: no rashes Neuro: cranial nerves II through XII grossly intact Labs/Imaging/Pathology - reviewed EKG : RBBB and bifascicular block, no baseline ECG to compare Echocardiography : Left Ventricle The left ventrical is severely dilated. LV mass index 183 g/m2 and RWT 0.32 consistent wtih severe eccentric LVH. Left ventricular systolic function is severely reduced. Ejection Fraction=20-25%. Diastolic dysfunction. Severe Inferior , anteroseptal and inferoseptal wall hypokinesis. There are regional wall motion abnormalities as specified. Right Ventricle The right ventricle is normal in size and function. There is normal right ventricular wall thickness. Atria The left atrium is severely dilated. Right atrial size is normal. Mitral Valve The mitral valve is normal. There is mild mitral regurgitation. Tricuspid Valve The tricuspid valve is normal. Estimated RA pressure is 0-5 mmHg. Insufficient Tricuspid regurgitation jet to estimate RVSP. Aortic Valve The aortic valve is mildly thickened and calcified. The mean aortic valve gradient measures 20.9 mmHg. The peak to peak aortic valve gradient measures 38.3 mmHg. Measured by the continuity equation, the aortic valve area is 1.4cm2. Moderate valvular aortic stenosis. Mild aortic regurgitation. Pulmonic Valve The pulmonic valve is not well visualized. Page 1 of 2 11/27/2019 Great Vessels The aortic root is normal size. Pericardium/Pleural There is no pericardial effusion. The pericardium appears normal. Summary Statements A two-dimensional transthoracic echocardiogram with M-mode and Doppler was performed. The study was technically adequate. Compared to prior study, changes are noted. Left ventricular systolic function is severely reduced. Ejection Fraction=20-25% . Diastolic dysfunction. There are regional wall motion abnormalities as specified. Moderate valvular aortic stenosis with mild aortic regurgitation. The left atrium is severely dilated. Cardiac Cath : None available Assessment/Plan: Bob Dhaliwal is a 54 year old male admitted with: 1. Decompensated cirrhosis with large ascites, s/p 8 L paracentesis 2. Acute on chronic HFrEF 20-25% NYHA class Iv stage C 3. PVC's frequent 10% 4. Moderate to large R pleural effusion 5. Medical noncompliance, hx of polysubstance abuse Recommendations: Increase lasix to 40 mg IV q12h ( monitor I& O) daily weight , keep Mg.2 and K>4 Recheck Mg and K and keep replacement to avoid arrhythmia and treat PVcs in the setting of Low EF Abdominal distention and large right pleural effusion which is likely due to heart failure and Low albumin due to decompensated cirrhosis. He will likely need another paracentesis. Consider GI consult for management of decompensated cirrhosis. If pleural fluid did not respond to diuresis, he will need thoracentesis , please obtain CXR today ( due to respiratory distress ) and in AM. C/w spironolactone 100 mg daily C/w digoxin 250 mcg daily, check digoxin level. Avoid hypotension to minimize the risk of renal failure ( hold Entresto , could be restarted after resolution of the congestion/overloaded phase and after appropraite diuresis. Patient was seen and examined with Faculty Dr Joseph Gaines MD General hr leader ICENOW ADMINISTRATOR Associated attestation - Richy Ruiz MD - 11/29/2019 8:15 AM CSTI personally examined the patient on 11/28/[address] Gaines's note as written. I actively participated in the decision-making process. Please see the fellow's note for additional details.Moustapha Ferrer MD - 11/28/2019 7:10 AM CST PGY- 1 [facility] Team Progress Note Date of Service: 11/28/2019 07:10 Chief Complaint: SOB and abdominal swelling 24-HOUR EVENTS: NAEO SUBJECTIVE: Patient is awake and eating breakfast. He is oriented x4. Patient's abdomen is distended again and he is feeling SOB again. He had multiple BMs yesterday. PHYSICAL EXAM: Vitals: 11/27/19 1950 11/27/19 2045 11/27/19 2348 11/28/19 0400 BP: 113/58 102/74 98/65 Pulse: 70 81 54 92 Resp: Temp: 36.4 C (97.6 F) 36.5 C (97.7 F) 36.3 C (97.4 F) TempSrc: Oral Oral Oral SpO2: 98% 97% 97% 95% Weight: Height: General: alert and oriented x 4; in no distress Lungs: crackles, wheezes, decreased breath sounds on right side Cardio: S1, S2 normal; no murmurs, rubs or gallops, tachycardic Abdomen: distended; tender; normoactive bowel sounds Extremities: b/l LE edema with venous stasis dermatitis LABS/IMAGING - reviewed, pertinent results as below: Reviewed BCX 11/27: In process ASSESSMENT/PLAN Bob Dhaliwal is a 54 year old male with PMH as listed above, admitted to the hospital with: Decompensated HCV cirrhosis with severe ascites, MELD 17, 2/2 Medication and diet noncompliance Untreated HCV S/p diagnostic and therapeutic paracentesis on 11/26. (-) SBP. Will consider repeat para today. - increased lasix to 40 mg IV BID - c/w aldactone to 100 mg daily - fluid restriction - c/w lactulose 45 mg QID with BM goal of 2-3 Acute on chronic combined combined HFrEF 20-25%, unclear if ischemic Significant drop in EF to 20-25% from 50-55% in 2017. Cardiology consulted. - diurese with lasix - c/w entresto and dig - place condom cath for strict output - consulted cardiology, appreciate recs AMS, likely 2/2 to ativan vs. Hepatic encephalopathy, resolved Patient alert and oriented x4 today. D/C sitter. - no ativan or haldol, use atarax if needed - c/w lactulose to 45mL QID Right Pleural effusion ; new OSH CXR shows large right pleural effusion likely 2/2 volume overloaded status. Once patient is respiratory status improved and can lay flat, will benefit from IR thora - continue to diurese PAIN: Improved Tylenol and [place] Prophylaxis: DVT- Contraindicated: Thrombocytopenia Stress Ulcer: no indication for prophylaxis Code Status: addressed: full code Disposition Anticipated Discharge Date : TBD Barriers to Discharge: volume overload Moustapha Ferrer MD Internal Medicine, PGY-1 [facility] Team Pager#[phone] END OF DAILY PROGRESS NOTE Hospital Course Bob Dhaliwal is a 54 year old male with history of HCV cirrhosis, chronic combined systolic and diastolic HF, COPD (on 2L home O2), HTN, tobacco use, and polysubstance abuse admitted from OSH for decompensated HCV cirrhosis. Diagnostic and therapeutic paracentesis on 11/26. (-) SBP. Significant dropin EF to 20-25% from 50-55% in 2017 along with elevated troponin. Cardiology consulted, increased diuresis. Patient altered likely 2/2 to ativan use, requiring sitter. B/L venous duplex negative for DVT. Patient oriented and alert today. Chronic Conditions: HTN Discharge Planning: - need outpatient f/u for untreated HCV CURRENT MEDICATIONS - reviewed. ICENOW ADMINISTRATOR Associated attestation - Jose Erazo MD - 11/28/2019 3:13 PM CSTAttending History Supplement: I personally examined the patient on 11/28/[address] Ferrer's resident note as written. I actively participated in the decision-making process. Please see the resident's note for additional details. Jose Erazo MD Chief Resident [phone] Clinical Floater Operator Department of Internal Medicine #[id number] 11/28/2019 Josh Renee PT - 11/27/2019 2:43 PM CST11/27/2019 Physical Therapy note: Physical therapy consult received and chart reviewed. Attempted to see the patient however per nursing patient with increased agitation and just fell asleep. RN requesting PT to return at a later time.Will follow up at a later time as schedule permits. Thank you. Josh Renee PT, DPT Pager Number: [phone] Moustapha Wood MD - 11/27/2019 7:36 AM CST PGY- 1 [facility] Team Progress Note Date of Service: 11/27/2019 07:36 Chief Complaint: SOB and abdominal swelling 24-HOUR EVENTS: Agitated, resolved with ativan SUBJECTIVE: Patient is somnolent but is oriented x4. Patient denies nausea, vomiting, fever , chills, diarrhea, or constipation. He had 1 or 2 BMs yesterday, PHYSICAL EXAM: Vitals: 11/26/19200011/26/19 2300 11/27/19 0400 11/27/19 0719 BP: 131/64 105/69 101/55 Pulse: 108 84 107 93 Resp: 22 22 20 Temp: 36.6 C (97.9 F) 36.8 C (98.3 F) 36.4 C (97.6 F) TempSrc: Oral Oral Oral SpO2: 99% 98% 96% 96% Weight: Height: General: somnolent and oriented x 4; confused Lungs: crackles, wheezes, decreased breath sounds on right side Cardio: S1, S2 normal; no murmurs, rubs or gallops, tachycardic Abdomen: distended; non-tender; normoactive bowel sounds Extremities: b/l LE edema with venous stasis dermatitis LABS/IMAGING - reviewed, pertinent results as below: Hgb 10.0 Plt 82 Na 133 TBili 2.2 -> 2.6 Bili Unconj 1.9 TProtein 5.8 Albumin 2.9 -> 2.6 Corrected Ca 8.5 Troponin 0.099 Lactic 1.70 Xr Chest 1 Vw Result Date: 11/27/2019 Findings and impression: Interval development of at least moderate right pleural effusion with associated atelectasis. Mild interstitial pulmonary edema is seen bilaterally. No pneumothorax. Heart remains enlarged. Findings may represent heart failure. Correlate with BNP. Ovoid density projecting overthe left hemidiaphragm may be artifactual due to superimposition of structures. No pneumothorax. Small metallic fragment projecting over the heart, unchanged. No aggressive osseous abnormality within bounds of single AP image. B/L Venous Duplex (11/26): Negative TTE 11/26: A two-dimensional transthoracic echocardiogram with M-mode and Doppler was performed. The study was technically adequate. Compared to prior study, changes are noted. Left ventricular systolic function is severely reduced. Ejection Fraction=20-25% . Diastolic dysfunction. There are regional wall motion abnormalities as specified. Moderate valvular aortic stenosis with mild aortic regurgitation. The left atrium is severely dilated. ASSESSMENT/PLAN Bob Dhaliwal is a 54 year old male with PMH as listed above, admitted to the hospital with: AMS, likely 2/2 to ativan vs. Hepatic encephalopathy Patient has been agitated overnight and received ativan 2mg. Patient has been altered since then andwandering in the hallways naked and confused. - sitter - no ativan or haldol, use atarax if needed - increased lactulose to 45mL QID Decompensated HCV cirrhosis with severe ascites, MELD 17, 2/2 Medication and diet noncompliance Untreated HCV S/p diagnostic and therapeutic paracentesis on 11/26. (-) SBP. - decreased lasix to 40 mg QD and aldactone to 100 mg daily as hypotensive - fluid restriction - lactulose 45 mg QID with BM goal of 2-3 - PT/INR Acute chronic combined systolic and diastolic HF exacerbation HTN Significant drop in EF to 20-25% from 50-55% in 2017. Elevated troponin in AM. Cardiology consulted. - diurese with lasix - c/w entresto and dig - place condom cath for strict output - consulted cardiology, will f/u recs Right Pleural effusion ; new OSH CXR shows large right pleural effusion likely 2/2 volume overloaded status. Once patient is respiratory status improved and can lay flat, will benefit from IR thora - continue to diurese PAIN: Improved Tylenol and [place] Prophylaxis: DVT- Contraindicated: Thrombocytopenia Stress Ulcer: no indication for prophylaxis Code Status: addressed: full code Disposition Anticipated Discharge Date : TBD Barriers to Discharge: cardiology recs/AMS Moustapha Ferrer MD Internal Medicine, PGY-1 [facility] Team Pager#[phone] END OF DAILY PROGRESS NOTE Hospital Course Bbo Dhaliwal is a 54 year old male with history of HCV cirrhosis, chronic combined systolic and diastolic HF, COPD (on 2L home O2), HTN, tobacco use, and polysubstance abuse admitted from OSH for decompensated HCV cirrhosis. Diagnostic and therapeutic paracentesis on 11/26. (-) SBP. Significant dropin EF to 20-25% from 50-55% in 2017. Elevated troponin in AM. Cardiology consulted. Patient alteredlikely 2/2 to ativan use, requiring sitter. Discharge Planning: - need outpatient f/u for untreated HCV CURRENT MEDICATIONS - reviewed. ICENOW ADMINISTRATOR Associated attestation - Jose Erazo MD - 11/28/2019 12:12 AM CSTAttending History Supplement: I personally examined the patient on 11/27/[address] Ferrer's resident note as written. I actively participated in the decision-making process. Please see the resident's note for additional details. Jose Erazo MD Chief Resident Clinical Floater Operator Department of Internal Medicine #[id number] 11/28/2019 documented in this encounter Plan of Treatment Name Type Priority Associated Diagnoses Date/Time LDH, TOTAL BODY FLUID LAB Routine 11/26/2019 2:15 PM SERVICENOW ADMINISTRATOR Name Type Priority Associated Order Schedule Diagnoses PROTHROMBIN TIME / INR LAB Routine ONCE for 1 Occurrences starting 11/26/2019 until 11/26/2019 LDH, TOTAL BODY FLUID LAB Routine ONCE for 1 Occurrences starting 11/26/2019 until 11/26/2019 LACTATE DEHYDROGENASE LAB Routine Once for 1 Occurrences starting 11/26/2019 until 11/26/2019 EKG-12 LEAD ROUTINE HEART STATION Routine ONCE for 1 Occurrences starting 11/26/2019 until 11/26/2019 CBC WITH DIFF LAB Routine EVERY 48 HOURS (START TIME ADJUSTABLE) for 5 Occurrences starting 12/01/2019 until 12/09/2019, 4 completed EKG-12 LEAD ROUTINE HEART STATION Routine ONCE for 1 Occurrences starting 11/30/2019 until 11/30/2019 EKG-12 LEAD ROUTINE HEART STATION STAT ONCE for 1 Occurrences starting 12/01/2019 until 12/01/2019 MAGNESIUM LAB Add-on EVERY MORNING AT 0400 until discontinued starting 12/01/2019, 18 completed CBC WITH DIFFERENTIAL LAB Routine Once for 1 Occurrences starting 12/07/2019 until 12/07/2019 BASIC METABOLIC PANEL LAB Routine ONCE for 1 (NA, K, CL, CO2, Occurrences starting GLUCOSE, BUN, 12/08/2019 until CREATININE, CA) 12/08/2019 BASIC METABOLIC PANEL LAB Routine EVERY 24 HOURS (START (NA, K, CL, CO2, TIME ADJUSTABLE) GLUCOSE, BUN, until discontinued CREATININE, CA) starting 12/11/2019, 8 completed PROFILE / HEMOGRAM LAB Routine EVERY 48 HOURS (START TIME ADJUSTABLE) until discontinued starting 12/13/2019, 3 completed aPTT LAB Routine FOR FOLLOW-UP TESTING until discontinued starting 12/17/2019, 1 completed Health Maintenance Due Date Last Done Comments DTaP,Tdap,and Td Vaccines (1 - Tdap) 1974 COLONOSCOPY 2013 Zoster Recombinant Vaccine (SHINGRIX) (1 of 2) 2013 LUNG CANCER SCREEN: Recommended for age 55-80 with 30 2018 + pack year history INFLUENZA VACCINE (#1) 2019 10/19/2017 PNEUMOCOCCAL 0-64 YEARS COMBINED SERIES Completed 10/19/2017 HEPATITIS C (HCV) SCREEN Completed 06/14/2019 documented as of this encounter Procedures Procedure Name Priority Date/Time Associated Comments Diagnosis POCT GLUCOSE (AUTOMATED) Routine 12/18/2019 Results for 4:03 PM SERVICENOW ADMINISTRATOR this procedure are in the results section. POCT GLUCOSE (AUTOMATED) Routine 12/18/2019 Results for 11:13 AM SERVICENOW ADMINISTRATOR this procedure are in the results section. POCT GLUCOSE (AUTOMATED) Routine 12/18/2019 Results for 8:10 AM SERVICENOW ADMINISTRATOR this procedure are in the results section. BASIC METABOLIC PANEL (NA, K, Routine 12/18/2019 Results for CL, CO2, GLUCOSE, BUN, 3:13 AM SERVICENOW ADMINISTRATOR this CREATININE, CA) procedure are in the results section. HEPATIC FUNCTION PANEL (50172) Add-on 12/18/2019 Results for (ALB,T.PRO,BILI 3:13 AM SERVICENOW ADMINISTRATOR this T,BU/BC,ALT,AST,ALK PHOS) procedure are in the results section. MAGNESIUM Routine 12/18/2019 Results for 3:13 AM SERVICENOW ADMINISTRATOR this procedure are in the results section. POCT GLUCOSE (AUTOMATED) Routine 12/17/2019 Results for 9:56 PM SERVICENOW ADMINISTRATOR this procedure are in the results section. POCT GLUCOSE (AUTOMATED) Routine 12/17/2019 Results for 5:52 PM SERVICENOW ADMINISTRATOR this procedure are in the results section. ACTIVATED PARTIAL THRMPLAS RUTH Routine 12/17/2019 Results for 2:10 PM SERVICENOW ADMINISTRATOR this procedure are in the results section. POCT GLUCOSE (AUTOMATED) Routine 12/17/2019 Results for 1:40 PM SERVICENOW ADMINISTRATOR this procedure are in the results section. POCT ACT LOW RANGE Routine 12/17/2019 Results for 11:39 AM SERVICENOW ADMINISTRATOR this procedure are in the results section. CORONARY ANGIOGRAPHY Routine 12/17/2019 10:47 AM SERVICENOW ADMINISTRATOR POCT GLUCOSE (AUTOMATED) Routine 12/17/2019 Results for 7:19 AM SERVICENOW ADMINISTRATOR this procedure are in the results section. PROFILE / HEMOGRAM Routine 12/17/2019 Results for 3:16 AM SERVICENOW ADMINISTRATOR this procedure are in the results section. BASIC METABOLIC PANEL (NA, K, Routine 12/17/2019 Results for CL, CO2, GLUCOSE, BUN, 3:16 AM SERVICENOW ADMINISTRATOR this CREATININE, CA) procedure are in the results section. MAGNESIUM Routine 12/17/2019 Results for 3:16 AM SERVICENOW ADMINISTRATOR this procedure are in the results section. POCT GLUCOSE (AUTOMATED) Routine 12/16/2019 Results for 8:37 PM SERVICENOW ADMINISTRATOR this procedure are in the results section. POCT GLUCOSE (AUTOMATED) Routine 12/16/2019 Results for 2:07 PM SERVICENOW ADMINISTRATOR this procedure are in the results section. POCT GLUCOSE (AUTOMATED) Routine 12/16/2019 Results for 8:18 AM SERVICENOW ADMINISTRATOR this procedure are in the results section. BASIC METABOLIC PANEL (NA, K, Routine 12/16/2019 Results for CL, CO2, GLUCOSE, BUN, 5:26 AM SERVICENOW ADMINISTRATOR this CREATININE, CA) procedure are in the results section. MAGNESIUM Routine 12/16/2019 Results for 5:26 AM SERVICENOW ADMINISTRATOR this procedure are in the results section. POCT GLUCOSE (AUTOMATED) Routine 12/15/2019 Results for 9:55 PM SERVICENOW ADMINISTRATOR this procedure are in the results section. POCT GLUCOSE (AUTOMATED) Routine 12/15/2019 Results for 5:02 PM SERVICENOW ADMINISTRATOR this procedure are in the results section. POCT GLUCOSE (AUTOMATED) Routine 12/15/2019 Results for 2:35 PM SERVICENOW ADMINISTRATOR this procedure are in the results section. BASIC METABOLIC PANEL (NA, K, Routine 12/15/2019 Results for CL, CO2, GLUCOSE, BUN, 6:00 AM SERVICENOW ADMINISTRATOR this CREATININE, CA) procedure are in the results section. MAGNESIUM Routine 12/15/2019 Results for 6:00 AM SERVICENOW ADMINISTRATOR this procedure are in the results section. PROFILE / HEMOGRAM Routine 12/15/2019 Results for 5:26 AM SERVICENOW ADMINISTRATOR this procedure are in the results section. BASIC METABOLIC PANEL (NA, K, Routine 12/14/2019 Results for CL, CO2, GLUCOSE, BUN, 3:40 AM SERVICENOW ADMINISTRATOR this CREATININE, CA) procedure are in the results section. MAGNESIUM Routine 12/14/2019 Results for 3:40 AM SERVICENOW ADMINISTRATOR this procedure are in the results section. BASIC METABOLIC PANEL (NA, K, Routine 12/13/2019 Results for CL, CO2, GLUCOSE, BUN, 9:44 AM SERVICENOW ADMINISTRATOR this CREATININE, CA) procedure are in the results section. MAGNESIUM Routine 12/13/2019 Results for 9:44 AM SERVICENOW ADMINISTRATOR this procedure are in the results section. PROFILE / HEMOGRAM Routine 12/13/2019 Results for 5:07 AM SERVICENOW ADMINISTRATOR this procedure are in the results section. BASIC METABOLIC PANEL (NA, K, Routine 12/12/2019 Results for CL, CO2, GLUCOSE, BUN, 5:28 AM SERVICENOW ADMINISTRATOR this CREATININE, CA) procedure are in the results section. MAGNESIUM Routine 12/12/2019 Results for 5:28 AM SERVICENOW ADMINISTRATOR this procedure are in the results section. CBC WITH DIFFERENTIAL Routine 12/11/2019 Results for 4:12 AM SERVICENOW ADMINISTRATOR this procedure are in the results section. CBC WITH DIFFERENTIAL Routine 12/11/2019 Results for 4:12 AM SERVICENOW ADMINISTRATOR this procedure are in the results section. BASIC METABOLIC PANEL (NA, K, Routine 12/11/2019 Results for CL, CO2, GLUCOSE, BUN, 4:12 AM SERVICENOW ADMINISTRATOR this CREATININE, CA) procedure are in the results section. MAGNESIUM Routine 12/11/2019 Results for 4:12 AM SERVICENOW ADMINISTRATOR this procedure are in the results section. BASIC METABOLIC PANEL (NA, K, Routine 12/10/2019 Results for CL, CO2, GLUCOSE, BUN, 4:46 AM SERVICENOW ADMINISTRATOR this CREATININE, CA) procedure are in the results section. MAGNESIUM Routine 12/10/2019 Results for 4:46 AM SERVICENOW ADMINISTRATOR this procedure are in the results section. CBC WITH DIFFERENTIAL Routine 12/09/2019 Results for 4:01 AM SERVICENOW ADMINISTRATOR this procedure are in the results section. CBC WITH DIFFERENTIAL Routine 12/09/2019 Results for 4:01 AM SERVICENOW ADMINISTRATOR this procedure are in the results section. BASIC METABOLIC PANEL (NA, K, Routine 12/09/2019 Results for CL, CO2, GLUCOSE, BUN, 4:01 AM SERVICENOW ADMINISTRATOR this CREATININE, CA) procedure are in the results section. MAGNESIUM Routine 12/09/2019 Results for 4:01 AM SERVICENOW ADMINISTRATOR this procedure are in the results section. BASIC METABOLIC PANEL (NA, K, Routine 12/08/2019 Results for CL, CO2, GLUCOSE, BUN, 4:57 AM SERVICENOW ADMINISTRATOR this CREATININE, CA) procedure are in the results section. MAGNESIUM Routine 12/08/2019 Results for 4:57 AM SERVICENOW ADMINISTRATOR this procedure are in the results section. BASIC METABOLIC PANEL (NA, K, Routine 12/07/2019 Results for CL, CO2, GLUCOSE, BUN, 5:44 AM SERVICENOW ADMINISTRATOR this CREATININE, CA) procedure are in the results section. MAGNESIUM Routine 12/07/2019 Results for 5:44 AM SERVICENOW ADMINISTRATOR this procedure are in the results section. XR CHEST 1 VW Routine 12/06/2019 SOB (shortness of Results for 3:02 PM SERVICENOW ADMINISTRATOR breath) this procedure are in the results section. EXTRA TUBE LAV Routine 12/06/2019 4:33 AM SERVICENOW ADMINISTRATOR BASIC METABOLIC PANEL (NA, K, Routine 12/06/2019 Results for CL, CO2, GLUCOSE, BUN, 4:33 AM SERVICENOW ADMINISTRATOR this CREATININE, CA) procedure are in the results section. HEPATIC FUNCTION PANEL (32705) Routine 12/06/2019 Results for (ALB,T.PRO,BILI 4:33 AM SERVICENOW ADMINISTRATOR this T,BU/BC,ALT,AST,ALK PHOS) procedure are in the results section. MAGNESIUM Routine 12/06/2019 Results for 4:33 AM SERVICENOW ADMINISTRATOR this procedure are in the results section. CBC WITH DIFFERENTIAL Routine 12/05/2019 Results for 4:51 AM SERVICENOW ADMINISTRATOR this procedure are in the results section. CBC WITH DIFFERENTIAL Routine 12/05/2019 Results for 4:51 AM SERVICENOW ADMINISTRATOR this procedure are in the results section. BASIC METABOLIC PANEL (NA, K, Routine 12/05/2019 Results for CL, CO2, GLUCOSE, BUN, 4:51 AM SERVICENOW ADMINISTRATOR this CREATININE, CA) procedure are in the results section. HEPATIC FUNCTION PANEL (29270) Routine 12/05/2019 Results for (ALB,T.PRO,BILI 4:51 AM SERVICENOW ADMINISTRATOR this T,BU/BC,ALT,AST,ALK PHOS) procedure are in the results section. MAGNESIUM Routine 12/05/2019 Results for 4:51 AM SERVICENOW ADMINISTRATOR this procedure are in the results section. ESOPHAGOGASTRODUODENOSCOPY Level 4 12/04/2019 Decompensated (within 0-5 10:36 AM SERVICENOW ADMINISTRATOR hepatic cirrhosis days) EGD (ENDO) Routine 12/04/2019 10:24 AM SERVICENOW ADMINISTRATOR BASIC METABOLIC PANEL (NA, K, Routine 12/04/2019 Results for CL, CO2, GLUCOSE, BUN, 5:18 AM SERVICENOW ADMINISTRATOR this CREATININE, CA) procedure are in the results section. HEPATIC FUNCTION PANEL (83927) Routine 12/04/2019 Results for (ALB,T.PRO,BILI 5:18 AM SERVICENOW ADMINISTRATOR this T,BU/BC,ALT,AST,ALK PHOS) procedure are in the results section. MAGNESIUM Routine 12/04/2019 Results for 5:18 AM SERVICENOW ADMINISTRATOR this procedure are in the results section. HEPATITIS C VIRUS GENOTYPE Routine 12/03/2019 Results for 4:17 PM SERVICENOW ADMINISTRATOR this procedure are in the results section. BASIC METABOLIC PANEL (NA, K, Routine 12/03/2019 Results for CL, CO2, GLUCOSE, BUN, 1:50 PM SERVICENOW ADMINISTRATOR this CREATININE, CA) procedure are in the results section. CBC WITH DIFFERENTIAL Routine 12/03/2019 Results for 4:46 AM SERVICENOW ADMINISTRATOR this procedure are in the results section. PROTHROMBIN TIME / INR Routine 12/03/2019 Results for 4:46 AM SERVICENOW ADMINISTRATOR this procedure are in the results section. CBC WITH DIFFERENTIAL Routine 12/03/2019 Results for 4:46 AM SERVICENOW ADMINISTRATOR this procedure are in the results section. BASIC METABOLIC PANEL (NA, K, Routine 12/03/2019 Results for CL, CO2, GLUCOSE, BUN, 4:46 AM SERVICENOW ADMINISTRATOR this CREATININE, CA) procedure are in the results section. HEPATIC FUNCTION PANEL ([id number]) Routine 12/03/2019 Results for (ALB,T.PRO,BILI 4:46 AM SERVICENOW ADMINISTRATOR this T,BU/BC,ALT,AST,ALK PHOS) procedure are in the results section. MAGNESIUM Routine 12/03/2019 Results for 4:46 AM SERVICENOW ADMINISTRATOR this procedure are in the results section. PROTHROMBIN TIME / INR Routine 12/02/2019 Results for 4:56 AM SERVICENOW ADMINISTRATOR this procedure are in the results section. BASIC METABOLIC PANEL (NA, K, Routine 12/02/2019 Results for CL, CO2, GLUCOSE, BUN, 4:56 AM SERVICENOW ADMINISTRATOR this CREATININE, CA) procedure are in the results section. HEPATIC FUNCTION PANEL ([id number]) Routine 12/02/2019 Results for (ALB,T.PRO,BILI 4:56 AM SERVICENOW ADMINISTRATOR this T,BU/BC,ALT,AST,ALK PHOS) procedure are in the results section. MAGNESIUM Routine 12/02/2019 Results for 4:56 AM SERVICENOW ADMINISTRATOR this procedure are in the results section. LACTATE DEHYDROGENASE [facility]O 12/01/2019 Results for 7:01 AM SERVICENOW ADMINISTRATOR this procedure are in the results section. HCV BY PCR [facility]O 12/01/2019 Results for 5:12 AM SERVICENOW ADMINISTRATOR this procedure are in the results section. EKG-12 LEAD Routine 12/01/2019 4:05 AM SERVICENOW ADMINISTRATOR CBC WITH DIFFERENTIAL Routine 12/01/2019 Results for 3:28 AM SERVICENOW ADMINISTRATOR this procedure are in the results section. RETICULOCYTES AUTOMATED Add-on 12/01/2019 Results for 3:28 AM SERVICENOW ADMINISTRATOR this procedure are in the results section. PROTHROMBIN TIME / INR [facility] 12/01/2019 Results for 3:28 AM SERVICENOW ADMINISTRATOR this procedure are in the results section. CBC WITH DIFFERENTIAL Routine 12/01/2019 Results for 3:28 AM SERVICENOW ADMINISTRATOR this procedure are in the results section. BASIC METABOLIC PANEL (NA, K, DELANO 12/01/2019 Results for CL, CO2, GLUCOSE, BUN, 3:28 AM SERVICENOW ADMINISTRATOR this CREATININE, CA) procedure are in the results section. HEPATIC FUNCTION PANEL ([id number]) [facility] 12/01/2019 Results for (ALB,T.PRO,BILI 3:28 AM SERVICENOW ADMINISTRATOR this T,BU/BC,ALT,AST,ALK PHOS) procedure are in the results section. TROPONIN I Add-on 12/01/2019 Results for 3:28 AM SERVICENOW ADMINISTRATOR this procedure are in the results section. MAGNESIUM Add-on 12/01/2019 Results for 3:28 AM SERVICENOW ADMINISTRATOR this procedure are in the results section. LACTIC ACID WHOLE BLOOD STAT 12/01/2019 Results for 2:20 AM SERVICENOW ADMINISTRATOR this procedure are in the results section. BASIC METABOLIC PANEL (NA, K, STAT 11/30/2019 Results for CL, CO2, GLUCOSE, BUN, 9:20 PM SERVICENOW ADMINISTRATOR this CREATININE, CA) procedure are in the results section. MAGNESIUM STAT 11/30/2019 Results for 9:20 PM SERVICENOW ADMINISTRATOR this procedure are in the results section. PROTHROMBIN TIME / INR [facility] 11/30/2019 Results for 5:42 AM SERVICENOW ADMINISTRATOR this procedure are in the results section. TROPONIN I [facility] 11/30/2019 Results for 5:42 AM SERVICENOW ADMINISTRATOR this procedure are in the results section. ABG+COOX+NA+K+GLU+CA2+ STAT 11/30/2019 Results for 3:56 AM SERVICENOW ADMINISTRATOR this procedure are in the results section. US ABDOMEN LIMITED WITH Routine 11/30/2019 Decompensated Results for DOPPLER 2:43 AM SERVICENOW ADMINISTRATOR hepatic cirrhosis this procedure are in the results section. MRSA / MSSA SCREEN BY PCR, Routine 11/30/2019 Results for NARES 12:58 AM SERVICENOW ADMINISTRATOR this procedure are in the results section. N-TERMINAL PRO-BNP Add-on 11/30/2019 Results for 12:58 AM SERVICENOW ADMINISTRATOR this procedure are in the results section. URINE CULTURE Routine 11/30/2019 Results for 12:58 AM SERVICENOW ADMINISTRATOR this procedure are in the results section. IRON PANEL Add-on 11/30/2019 Results for 12:58 AM SERVICENOW ADMINISTRATOR this procedure are in the results section. BASIC METABOLIC PANEL (NA, K, DELANO 11/30/2019 Results for CL, CO2, GLUCOSE, BUN, 12:58 AM SERVICENOW ADMINISTRATOR this CREATININE, CA) procedure are in the results section. HEPATIC FUNCTION PANEL ([id number]) [facility] 11/30/2019 Results for (ALB,T.PRO,BILI 12:58 AM SERVICENOW ADMINISTRATOR this T,BU/BC,ALT,AST,ALK PHOS) procedure are in the results section. TROPONIN I [facility] 11/30/2019 Results for 12:58 AM SERVICENOW ADMINISTRATOR this procedure are in the results section. HAPTOGLOBIN, SERUM Add-on 11/30/2019 Results for 12:58 AM SERVICENOW ADMINISTRATOR this procedure are in the results section. OSMOLALITY SERUM Routine 11/30/2019 Results for 12:58 AM SERVICENOW ADMINISTRATOR this procedure are in the results section. FERRITIN SERUM Add-on 11/30/2019 Results for 12:58 AM SERVICENOW ADMINISTRATOR this procedure are in the results section. LACTIC ACID WHOLE BLOOD STAT 11/29/2019 Results for 4:27 PM SERVICENOW ADMINISTRATOR this procedure are in the results section. CHLORIDE, URINE RANDOM Routine 11/29/2019 Results for 2:22 PM SERVICENOW ADMINISTRATOR this procedure are in the results section. SODIUM, URINE RANDOM Routine 11/29/2019 Results for 2:22 PM SERVICENOW ADMINISTRATOR this procedure are in the results section. UREA NITROGEN, URINE RANDOM Add-on 11/29/2019 Results for 2:22 PM SERVICENOW ADMINISTRATOR this procedure are in the results section. CREATININE, URINE RANDOM Routine 11/29/2019 Results for 2:22 PM SERVICENOW ADMINISTRATOR this procedure are in the results section. URINALYSIS Routine 11/29/2019 Results for 2:22 PM SERVICENOW ADMINISTRATOR this procedure are in the results section. OSMOLALITY URINE Add-on 11/29/2019 Results for 2:22 PM SERVICENOW ADMINISTRATOR this procedure are in the results section. CBC WITH DIFFERENTIAL Routine 11/29/2019 Results for 6:29 AM SERVICENOW ADMINISTRATOR this procedure are in the results section. GLYCOSYLATED HEMOGLOBIN (A1C) Add-on 11/29/2019 Results for 6:29 AM SERVICENOW ADMINISTRATOR this procedure are in the results section. CBC WITH DIFFERENTIAL Routine 11/29/2019 Results for 6:29 AM SERVICENOW ADMINISTRATOR this procedure are in the results section. LIPID PANEL ([id number])(TOTAL Add-on 11/29/2019 Results for CHOLESTEROL, TRIGLYCERIDES, 5:15 AM SERVICENOW ADMINISTRATOR this HDL) procedure are in the results section. BASIC METABOLIC PANEL (NA, K, Routine 11/29/2019 Results for CL, CO2, GLUCOSE, BUN, 5:15 AM SERVICENOW ADMINISTRATOR this CREATININE, CA) procedure are in the results section. HEPATIC FUNCTION PANEL ([id number]) Routine 11/29/2019 Results for (ALB,T.PRO,BILI 5:15 AM SERVICENOW ADMINISTRATOR this T,BU/BC,ALT,AST,ALK PHOS) procedure are in the results section. THYROID STIMULATING HORMONE Add-on 11/29/2019 Results for 5:15 AM SERVICENOW ADMINISTRATOR this procedure are in the results section. CBC WITH DIFFERENTIAL Routine 11/28/2019 Results for 3:54 PM SERVICENOW ADMINISTRATOR this procedure are in the results section. CBC WITH DIFFERENTIAL Routine 11/28/2019 Results for 3:54 PM SERVICENOW ADMINISTRATOR this procedure are in the results section. DIGOXIN Routine 11/28/2019 Results for 3:54 PM SERVICENOW ADMINISTRATOR this procedure are in the results section. BASIC METABOLIC PANEL (NA, K, Routine 11/28/2019 Results for CL, CO2, GLUCOSE, BUN, 3:54 PM SERVICENOW ADMINISTRATOR this CREATININE, CA) procedure are in the results section. HEPATIC FUNCTION PANEL ([id number]) Routine 11/28/2019 Results for (ALB,T.PRO,BILI 3:54 PM SERVICENOW ADMINISTRATOR this T,BU/BC,ALT,AST,ALK PHOS) procedure are in the results section. MAGNESIUM Routine 11/28/2019 Results for 3:54 PM SERVICENOW ADMINISTRATOR this procedure are in the results section. XR CHEST 1 VW DELANO 11/28/2019 SOB (shortness of Results for 3:20 PM SERVICENOW ADMINISTRATOR breath) this procedure are in the results section. AC ABG + LACTIC ACID STAT 11/27/2019 Results for 12:24 PM SERVICENOW ADMINISTRATOR this procedure are in the results section. BLOOD CULTURE SCREEN Routine 11/27/2019 Results for 12:23 PM SERVICENOW ADMINISTRATOR this procedure are in the results section. PROTHROMBIN TIME / INR Routine 11/27/2019 Results for 12:14 PM SERVICENOW ADMINISTRATOR this procedure are in the results section. BLOOD CULTURE SCREEN Routine 11/27/2019 Results for 12:14 PM SERVICENOW ADMINISTRATOR this procedure are in the results section. CBC WITH DIFFERENTIAL Routine 11/27/2019 Results for 2:27 AM SERVICENOW ADMINISTRATOR this procedure are in the results section. EXTRA TUBE LT. BLUE Routine 11/27/2019 2:27 AM SERVICENOW ADMINISTRATOR CBC WITH DIFFERENTIAL Routine 11/27/2019 Results for 2:27 AM SERVICENOW ADMINISTRATOR this procedure are in the results section. BASIC METABOLIC PANEL (NA, K, Routine 11/27/2019 Results for CL, CO2, GLUCOSE, BUN, 2:27 AM SERVICENOW ADMINISTRATOR this CREATININE, CA) procedure are in the results section. HEPATIC FUNCTION PANEL ([id number]) Routine 11/27/2019 Results for (ALB,T.PRO,BILI 2:27 AM SERVICENOW ADMINISTRATOR this T,BU/BC,ALT,AST,ALK PHOS) procedure are in the results section. TROPONIN I Add-on 11/27/2019 Results for 2:27 AM SERVICENOW ADMINISTRATOR this procedure are in the results section. EKG-12 LEAD Routine 11/26/2019 6:40 PM SERVICENOW ADMINISTRATOR XR CHEST 1 VW DELANO 11/26/2019 SOB (shortness of Results for 5:13 PM SERVICENOW ADMINISTRATOR breath) this procedure are in the results section. ECHO ROUTINE W/DOPPLER COLOR Routine 11/26/2019 SOB (shortness of 3:37 PM SERVICENOW ADMINISTRATOR breath) BILATERAL VENOUS DUPLEX LOWER Routine 11/26/2019 EXTREMITY BY VASCULAR LAB 2:55 PM SERVICENOW ADMINISTRATOR LDH TOTAL BODY FLUID Routine 11/26/2019 Results for 2:15 PM SERVICENOW ADMINISTRATOR this procedure are in the results section. BODY FLUID DIRECT COUNT Routine 11/26/2019 Results for 2:15 PM SERVICENOW ADMINISTRATOR this procedure are in the results section. BODY FLUID MANUAL DIFF Routine 11/26/2019 Results for 2:15 PM SERVICENOW ADMINISTRATOR this procedure are in the results section. BODY FLUID (BACTEC BOTTLE) Routine 11/26/2019 Results for 2:15 PM SERVICENOW ADMINISTRATOR this procedure are in the results section. BODY FLUID DIRECT COUNT Routine 11/26/2019 Results for 2:15 PM SERVICENOW ADMINISTRATOR this procedure are in the results section. T.PROTEIN BODY FLUID Routine 11/26/2019 Results for 2:15 PM SERVICENOW ADMINISTRATOR this procedure are in the results section. ALBUMIN BODY FLUID Routine 11/26/2019 Results for 2:15 PM SERVICENOW ADMINISTRATOR this procedure are in the results section. GLUCOSE BODY FLUID Routine 11/26/2019 Results for 2:15 PM SERVICENOW ADMINISTRATOR this procedure are in the results section. CBC WITH DIFFERENTIAL DEL[place] 11/26/2019 Results for 9:11 AM SERVICENOW ADMINISTRATOR this procedure are in the results section. URINE DRUG (LCMSMS) - Routine 11/26/2019 Results for SYNTHETIC OPIATES PANEL 9:11 AM SERVICENOW ADMINISTRATOR this procedure are in the results section. URINE DRUG (LCMSMS) - OPIATES Routine 11/26/2019 Results for PANEL 9:11 AM SERVICENOW ADMINISTRATOR this procedure are in the results section. N-TERMINAL PRO-BNP Add-on 11/26/2019 Results for 9:11 AM SERVICENOW ADMINISTRATOR this procedure are in the results section. PROTHROMBIN TIME / INR [facility] 11/26/2019 Results for 9:11 AM SERVICENOW ADMINISTRATOR this procedure are in the results section. CBC WITH DIFFERENTIAL [facility] 11/26/2019 Results for 9:11 AM SERVICENOW ADMINISTRATOR this procedure are in the results section. GALV/CLC ONLY - URINE DRUG Routine 11/26/2019 Results for (IMMUNOASSAY) - COMPREHENSIVE 9:11 AM SERVICENOW ADMINISTRATOR this DRUG SCREEN procedure are in the results section. ETHANOL Add-on 11/26/2019 Results for 9:11 AM SERVICENOW ADMINISTRATOR this procedure are in the results section. BASIC METABOLIC PANEL (NA, K, [facility] 11/26/2019 Results for CL, CO2, GLUCOSE, BUN, 9:11 AM SERVICENOW ADMINISTRATOR this CREATININE, CA) procedure are in the results section. HEPATIC FUNCTION PANEL ([id number]) [facility] 11/26/2019 Results for (ALB,T.PRO,BILI 9:11 AM SERVICENOW ADMINISTRATOR this T,BU/BC,ALT,AST,ALK PHOS) procedure are in the results section. MAGNESIUM [facility]O 11/26/2019 Results for 9:11 AM SERVICENOW ADMINISTRATOR this procedure are in the results section. documented in this encounter Results POCT GLUCOSE (AUTOMATED) (12/18/2019 4:03 PM SERVICENOW ADMINISTRATOR) POCT GLU 205 (H) 70 - 110 mg/dL [facility] Specimen Blood Performing Organization Address City/[facility]/Zipcode Phone Number [facility] CLIA: [id number], [address] [place] [phone] [facility] POCT GLUCOSE (AUTOMATED) (12/18/2019 11:13 AM SERVICENOW ADMINISTRATOR) POCT GLU 213 (H) 70 - 110 mg/dL [facility] Specimen Blood Performing Organization Address City/[facility]/Zipcode Phone Number [facility] CLIA: [id number], [address] [place], [place] [id number] [facility] POCT GLUCOSE (AUTOMATED) (12/18/2019 8:10 AM SERVICENOW ADMINISTRATOR) POCT GLU 196 (H) 70 - 110 mg/dL [facility] Specimen Blood Performing Organization Address [facility] Phone Number [facility] CLIA: [id number], [address] [place] [phone] [facility] HEPATIC FUNCTION PANEL ([id number]) (ALB,T.PRO,BILI T,BU/BC,ALT,AST,ALK PHOS) (2019 3:13 AM SERVICENOW ADMINISTRATOR) TOTAL BILI 1.1 0.1 - 1.1 mg/dL [facility] BILI UNCON 0.8 0.1 - 1.1 mg/dL [facility] BILI CONJ 0.0 0.0 - 0.3 mg/dL [facility] T PROTEIN 6.9 6.3 - 8.2 g/dL [facility] ALBUMIN 3.1 (L) 3.5 - 5.0 g/dL [facility] ALK PHOS 71 34 - 122 U/L [facility] ALTv 65 (H) 5 - 50 U/L [facility] AST(SGOT) 104 (H) 13 - 40 U/L [facility] Specimen Blood - HAND, LEFT Performing Organization Address [facility] Phone Number [facility] CLIA: [id number], [address] [place] [phone] [facility] BASIC METABOLIC PANEL (NA, K, CL, CO2, GLUCOSE, BUN, CREATININE, CA) (2019 3:13 AM SERVICENOW ADMINISTRATOR) NA 134 (L) 135 - 145 [facility] mmol/L SERVICES K 4.7 3.5 - 5.0 [facility] mmol/L SERVICES CL 102 98 - 108 mmol/L [facility] CO2 TOTAL 24 23 - 31 mmol/L [facility] AGAP 8 2 - 16 [facility] BUN 28 (H) 7 - 23 mg/dL [facility] GLUCOSE 221 (H) 70 - 110 mg/dL [facility] CREATININE 1.06 0.60 - 1.25 [facility] mg/dL SERVICES CALCIUM 8.1 (L) 8.6 - 10.6 [facility] mg/dL SERVICES eGFR Calculation 72.3 mL/min/1.73m2 [facility] (Non- SERVICES Tanzanian) eGFR Calculation 87.6 mL/min/1.73m2 [facility] () SERVICES Specimen Blood - HAND, LEFT Narrative Performed At Association of Glomerular Filtration Rate (GFR) and Staging [facility] of Kidney Disease* + + + + | GFR (mL/min/1.73 m2) | With Kidney Damage | Without Kidney Damage + + + + | >90 | Stage one | Normal + + + + | 60-89 | Stage two | Decreased GFR + + + + | 30-59 | Stage three | Stage three + + + + | 15-29 | Stage four | Stage four + + + + | <15 (or dialysis) | Stage five | Stage five + + + + *Each stage assumes the associated GFR level has been in effect for at least three months. Stages 1 to 5, with or without kidney disease, indicate chronic kidney disease. Notes: Determination of stages one and two (with eGFR >59mL/min/1.73 m2) requires estimation of kidney damage for at least three months as defined by structural or functional abnormalities of the kidney, manifested by either: Pathological abnormalities or Markers of kidney damage (including abnormalities in the composition of the blood or urine or abnormalities in imaging tests). Performing Organization Address City/[facility] Phone Number [facility] CLIA: [id number], [address] [place] [address] [phone] [facility] MAGNESIUM (12/18/2019 3:13 AM SERVICENOW ADMINISTRATOR) MAGNESIUM 1.6 (L) 1.7 - 2.4 mg/dL [facility] Specimen Blood - HAND, LEFT Performing Organization Address [facility] Phone Number [facility] CLIA: [id number], [address] [place] [address] [phone] [facility] POCT GLUCOSE (AUTOMATED) (12/17/2019 9:56 PM SERVICENOW ADMINISTRATOR) POCT GLU 156 (H) 70 - 110 mg/dL [facility] Specimen Blood Performing Organization Address [facility] [place] Phone Number [facility] CLIA: [id number], [address] [place] [address] [phone] [facility] POCT GLUCOSE (AUTOMATED) (12/17/2019 5:52 PM SERVICENOW ADMINISTRATOR) POCT GLU 136 (H) 70 - 110 mg/dL [facility] Specimen Blood Performing Organization Address City/[facility]/Zipcode Phone Number [facility] CLIA: [id number], [address] [place] [address] [phone] [facility] aPTT (12/17/2019 2:10 PM SERVICENOW ADMINISTRATOR) APTT Patient 32 26 - 36 Seconds [facility] Specimen Blood - VENOUS Performing Organization Address City/[facility] Phone Number [facility] CLIA: [id number], [address] [place] [address] [phone] [facility] POCT GLUCOSE (AUTOMATED) (12/17/2019 1:40 PM SERVICENOW ADMINISTRATOR) POCT GLU 241 (H) 70 - 110 mg/dL [facility] Specimen Blood Performing Organization Address City/[facility]/[place] Phone Number [facility] CLIA: [id number], [address] [place] [address] [phone] [facility] POCT ACT LOW RANGE (12/17/2019 11:39 AM SERVICENOW ADMINISTRATOR) ACTLR 153 89 - 169 Seconds [facility] Specimen Blood Performing Organization Address City/[facility]/Zipcode Phone Number [facility] CLIA: [id number], [address] [place] [address] [phone] [facility] POCT GLUCOSE (AUTOMATED) (12/17/2019 7:19 AM SERVICENOW ADMINISTRATOR) POCT GLU 147 (H) 70 - 110 mg/dL [facility] Specimen Blood Performing Organization Address City/[facility]/Zipcode Phone Number [facility] CLIA: [id number], [address] [place] [address] [phone] [facility] PROFILE / HEMOGRAM (12/17/2019 3:16 AM SERVICENOW ADMINISTRATOR) WBC 4.82 4.20 - 10.70 [facility] 10*3/L SERVICES RBC 3.34 (L) 4.26 - 5.52 [facility] 10*6/L SERVICES HGB 10.1 (L) 12.2 - 16.4 g/dL [facility] HCT 30.6 (L) 38.4 - 49.3 % [facility] MCH 30.2 26.1 - 32.7 pg [facility] MCV 91.6 81.7 - 95.6 fL [facility] MCHC 33.0 31.2 - 35.0 g/dL [facility] PLT 130 (L) 150 - 328 10*3/L [facility] MPV 12.1 9.8 - 13.0 fL [facility] RDW-CV 21.0 (H) 12.1 - 15.4 % [facility] RDW-SD 69.3 (H) 38.5 - 51.6 fL [facility] NRBC x10^3 <0.01 10*3/L [facility] NRBC/100 WBC 0.0 0.0 - 10.0 /100 [facility] WBCs SERVICES IPF % [facility] Specimen Blood - LINE, VENOUS Performing Organization Address City/State/Zipcode Phone Number [facility] CLIA: [id number], [address] [place] [address] [facility] BASIC METABOLIC PANEL (NA, K, CL, CO2, GLUCOSE, BUN, CREATININE, CA) (2019 3:16 AM SERVICENOW ADMINISTRATOR) NA 133 (L) 135 - 145 [facility] mmol/L SERVICES K 4.3 3.5 - 5.0 [facility] mmol/L SERVICES CL 100 98 - 108 mmol/L [facility] CO2 TOTAL 27 23 - 31 mmol/L [facility] AGAP 6 2 - 16 [facility] BUN 25 (H) 7 - 23 mg/dL [facility] GLUCOSE 168 (H) 70 - 110 mg/dL [facility] CREATININE 0.86 0.60 - 1.25 [facility] mg/dL SERVICES CALCIUM 8.4 (L) 8.6 - 10.6 [facility] mg/dL SERVICES eGFR Calculation 92.0 mL/min/1.73m2 [facility] (Non- SERVICES Tanzanian) eGFR Calculation 111.5 mL/min/1.73m2 [facility] () SERVICES Specimen Blood - LINE, VENOUS Narrative Performed At Association of Glomerular Filtration Rate (GFR) and Staging [facility] SERVICES of Kidney Disease* + + + + | GFR (mL/min/1.73 m2) | With Kidney Damage | Without Kidney Damage + + + + | >90 | Stage one | Normal + + + + | 60-89 | Stage two | Decreased GFR + + + + | 30-59 | Stage three | Stage three + + + + | 15-29 | Stage four | Stage four + + + + | <15 (or dialysis) | Stage five | Stage five + + + + *Each stage assumes the associated GFR level has been in effect for at least three months. Stages 1 to 5, with or without kidney disease, indicate chronic kidney disease. Notes: Determination of stages one and two (with eGFR >59mL/min/1.73 m2) requires estimation of kidney damage for at least three months as defined by structural or functional abnormalities of the kidney, manifested by either: Pathological abnormalities or Markers of kidney damage (including abnormalities in the composition of the blood or urine or abnormalities in imaging tests). Performing Organization Address [facility]/Zipcode Phone Number [facility] CLIA: [id number], [address] [place] [address] [phone] [facility] MAGNESIUM (12/17/2019 3:16 AM SERVICENOW ADMINISTRATOR) MAGNESIUM 1.9 1.7 - 2.4 mg/dL [facility] SERVICES Specimen Blood - LINE, VENOUS Performing Organization Address [facility] Phone Number [facility] CLIA: [id number], [address] [place] [address] [phone] [facility] POCT GLUCOSE (AUTOMATED) (12/16/2019 8:37 PM SERVICENOW ADMINISTRATOR) POCT GLU 214 (H) 70 - 110 mg/dL [facility] Specimen Blood Performing Organization Address [facility] Phone Number [facility] CLIA: [id number], [address] [place] [address] [phone] [facility] POCT GLUCOSE (AUTOMATED) (12/16/2019 2:07 PM SERVICENOW ADMINISTRATOR) POCT GLU 201 (H) 70 - 110 mg/dL [facility] Specimen Blood Performing Organization Address City/[facility]/Zipcode Phone Number [facility] CLIA: [id number], [address] [place] [address]94 [phone] [facility] POCT GLUCOSE (AUTOMATED) (12/16/2019 8:18 AM SERVICENOW ADMINISTRATOR) POCT GLU 127 (H) 70 - 110 mg/dL [facility] Specimen Blood Performing Organization Address City/[facility]/Zipcode Phone Number [facility] CLIA: [id number], [address] [place] [address] [phone] [facility] BASIC METABOLIC PANEL (NA, K, CL, CO2, GLUCOSE, BUN, CREATININE, [place]) (2019 5:26 AM SERVICENOW ADMINISTRATOR) NA 135 135 - 145 [facility] mmol/L SERVICES K 4.6Comment: 3.5 - 5.0 [facility] Slight hemolysis mmol/L SERVICES CL 100 98 - 108 [facility] mmol/L SERVICES CO2 TOTAL 29 23 - 31 [facility] mmol/L SERVICES AGAP 6 2 - 16 [facility] SERVICES BUN 27 (H)Comment: 7 - 23 mg/dL [facility] Slight hemolysis SERVICES GLUCOSE 167 (H) 70 - 110 [facility] mg/dL SERVICES CREATININE 0.92 0.60 - 1.25 [facility] mg/dL SERVICES CALCIUM 8.1 (L) 8.6 - 10.6 [facility] mg/dL SERVICES eGFR Calculation 85.1 mL/min/1.73m2 [facility] (Non- SERVICES [place]) eGFR Calculation 103.1 mL/min/1.73m2 [facility] () SERVICES Specimen Blood - LINE, VENOUS Narrative Performed At Association of Glomerular Filtration Rate (GFR) and Staging [facility] SERVICES of Kidney Disease* + + + + | GFR (mL/min/1.73 m2) | With Kidney Damage | Without Kidney Damage + + + + | >90 | Stage one | Normal + + + + | 60-89 | Stage two | Decreased GFR + + + + | 30-59 | Stage three | Stage three + + + + | 15-29 | Stage four | Stage four + + + + | <15 (or dialysis) | Stage five | Stage five + + + + *Each stage assumes the associated GFR level has been in effect for at least three months. Stages 1 to 5, with or without kidney disease, indicate chronic kidney disease. Notes: Determination of stages one and two (with eGFR >59mL/min/1.73 m2) requires estimation of kidney damage for at least three months as defined by structural or functional abnormalities of the kidney, manifested by either: Pathological abnormalities or Markers of kidney damage (including abnormalities in the composition of the blood or urine or abnormalities in imaging tests). Performing Organization Address City/[facility] Phone Number [facility] CLIA: [id number], [address] [place] [address] [phone] [facility] MAGNESIUM (12/16/2019 5:26 AM SERVICENOW ADMINISTRATOR) MAGNESIUM 1.9 1.7 - 2.4 mg/dL [facility] SERVICES Specimen Blood - LINE, VENOUS Performing Organization Address [facility] Phone Number [facility] CLIA: [id number], [address] [place] [address] [phone] [facility] POCT GLUCOSE (AUTOMATED) (12/15/2019 9:55 PM SERVICENOW ADMINISTRATOR) POCT GLU 195 (H) 70 - 110 mg/dL [facility] Specimen Blood Performing Organization Address [facility] [place] [facility] Phone Number [facility] CLIA: [id number], [address] [place] [address] [phone] [facility] POCT GLUCOSE (AUTOMATED) (12/15/2019 5:02 PM SERVICENOW ADMINISTRATOR) POCT GLU 188 (H) 70 - 110 mg/dL [facility] Specimen Blood Performing Organization Address [facility] Phone Number [facility] CLIA: [id number], [address] [place] [address] 44804 [phone] [facility] POCT GLUCOSE (AUTOMATED) (12/15/2019 2:35 PM SERVICENOW ADMINISTRATOR) POCT GLU 135 (H) 70 - 110 mg/dL [facility] Specimen Blood Performing Organization Address City/State/Zipcode Phone Number [facility] CLIA: [id number], [address] [place] [address] [facility] BASIC METABOLIC PANEL (NA, K, CL, CO2, GLUCOSE, BUN, CREATININE, [place]) (2019 6:00 AM SERVICENOW ADMINISTRATOR) NA 135 135 - 145 [facility] mmol/L SERVICES K 4.0 3.5 - 5.0 [facility] mmol/L SERVICES CL 99 98 - 108 mmol/L [facility] SERVICES CO2 TOTAL 28 23 - 31 mmol/L [facility] SERVICES AGAP 8 2 - 16 [facility] SERVICES BUN 24 (H) 7 - 23 mg/dL [facility] SERVICES GLUCOSE 203 (H) 70 - 110 mg/dL [facility] SERVICES CREATININE 0.96 0.60 - 1.25 [facility] mg/dL SERVICES CALCIUM 8.2 (L) 8.6 - 10.6 [facility] mg/dL SERVICES eGFR Calculation 81.0 mL/min/1.73m2 [facility] (Non- SERVICES [place]) eGFR Calculation 98.2 mL/min/1.73m2 [facility] () SERVICES Specimen Blood - LINE, VENOUS Narrative Performed At Association of Glomerular Filtration Rate (GFR) and Staging [facility] SERVICES of Kidney Disease* + + + + | GFR (mL/min/1.73 m2) | With Kidney Damage | Without Kidney Damage + + + + | >90 | Stage one | Normal + + + + | 60-89 | Stage two | Decreased GFR + + + + | 30-59 | Stage three | Stage three + + + + | 15-29 | Stage four | Stage four + + + + | <15 (or dialysis) | Stage five | Stage five + + + + *Each stage assumes the associated GFR level has been in effect for at least three months. Stages 1 to 5, with or without kidney disease, indicate chronic kidney disease. Notes: Determination of stages one and two (with eGFR >59mL/min/1.73 m2) requires estimation of kidney damage for at least three months as defined by structural or functional abnormalities of the kidney, manifested by either: Pathological abnormalities or Markers of kidney damage (including abnormalities in the composition of the blood or urine or abnormalities in imaging tests). Performing Organization Address City/State/Zipcode Phone Number [facility] CLIA: [id number], [address] [place] [address] 43260 [phone] [facility] MAGNESIUM (12/15/2019 6:00 AM SERVICENOW ADMINISTRATOR) MAGNESIUM 1.5 (L) 1.7 - 2.4 mg/dL [facility] SERVICES Specimen Blood - LINE, VENOUS Performing Organization Address [facility] Phone Number [facility] CLIA: [id number], [address] [place] [phone] [facility] PROFILE / HEMOGRAM (12/15/2019 5:26 AM SERVICENOW ADMINISTRATOR) WBC 5.13 4.20 - 10.70 [facility] 10*3/L SERVICES RBC 3.40 (L) 4.26 - 5.52 [facility] 10*6/L SERVICES HGB 10.3 (L) 12.2 - 16.4 [facility] g/dL SERVICES HCT 31.8 (L) 38.4 - 49.3 % [facility] SERVICES MCH 30.3 26.1 - 32.7 pg [facility] SERVICES MCV 93.5 81.7 - 95.6 fL [facility] SERVICES MCHC 32.4 31.2 - 35.0 [facility] g/dL SERVICES PLT 131 (L) 150 - 328 [facility] 10*3/L SERVICES MPV Comment: Not Measured [facility] SERVICES RDW-CV 22.5 (H) 12.1 - 15.4 % [facility] SERVICES RDW-SD 70.9 (H) 38.5 - 51.6 fL [facility] SERVICES NRBC x10^3 <0.01 10*3/L [facility] SERVICES NRBC/100 WBC 0.0 0.0 - 10.0 [facility] /100 WBCs SERVICES IPF % 5.5Comment: Platelet 1.2 - 10.7 % [facility] count measured by SERVICES fluorescence method. Specimen Blood - LINE, VENOUS Performing Organization Address City/[facility] Phone Number [facility] CLIA: [id number], [address] [place] [phone] [facility] BASIC METABOLIC PANEL (NA, K, CL, CO2, GLUCOSE, BUN, CREATININE, [place]) (2019 3:40 AM SERVICENOW ADMINISTRATOR) NA 133 (L) 135 - 145 [facility] mmol/L SERVICES K 4.0 3.5 - 5.0 [facility] mmol/L SERVICES CL 97 (L) 98 - 108 mmol/L [facility] SERVICES CO2 TOTAL 28 23 - 31 mmol/L [facility] SERVICES AGAP 8 2 - 16 [facility] SERVICES BUN 21 7 - 23 mg/dL [facility] SERVICES GLUCOSE 203 (H) 70 - 110 mg/dL [facility] SERVICES CREATININE 0.78 0.60 - 1.25 [facility] mg/dL SERVICES CALCIUM 8.2 (L) 8.6 - 10.6 [facility] mg/dL SERVICES eGFR Calculation 103.0 mL/min/1.73m2 [facility] (Non- SERVICES [place]) eGFR Calculation 124.8 mL/min/1.73m2 [facility] () SERVICES Specimen Blood - VENOUS Narrative Performed At Association of Glomerular Filtration Rate (GFR) and Staging [facility] SERVICES of Kidney Disease* + + + + | GFR (mL/min/1.73 m2) | With Kidney Damage | Without Kidney Damage + + + + | >90 | Stage one | Normal + + + + | 60-89 | Stage two | Decreased GFR + + + + | 30-59 | Stage three | Stage three + + + + | 15-29 | Stage four | Stage four + + + + | <15 (or dialysis) | Stage five | Stage five + + + + *Each stage assumes the associated GFR level has been in effect for at least three months. Stages 1 to 5, with or without kidney disease, indicate chronic kidney disease. Notes: Determination of stages one and two (with eGFR >59mL/min/1.73 m2) requires estimation of kidney damage for at least three months as defined by structural or functional abnormalities of the kidney, manifested by either: Pathological abnormalities or Markers of kidney damage (including abnormalities in the composition of the blood or urine or abnormalities in imaging tests). Performing Organization Address City/State/Zipcode Phone Number [facility] CLIA: [id number], [address] [place] [phone] [facility] MAGNESIUM (12/14/2019 3:40 AM SERVICENOW ADMINISTRATOR) [facility] Signature MAGNESIUM 1.9 1.7 - 2.4 mg/dL [facility] Specimen Blood - VENOUS Performing Organization Address City/[facility]/Zipcode Phone Number [facility] CLIA: [id number], [address] [place] [address] [facility] BASIC METABOLIC PANEL (NA, K, CL, CO2, GLUCOSE, BUN, CREATININE, [place]) (2019 9:44 AM SERVICENOW ADMINISTRATOR) NA 135 135 - 145 [facility] mmol/L SERVICES K 4.4 3.5 - 5.0 [facility] mmol/L SERVICES CL 98 98 - 108 mmol/L [facility] SERVICES CO2 TOTAL 31 23 - 31 mmol/L [facility] SERVICES AGAP 6 2 - 16 [facility] SERVICES BUN 19 7 - 23 mg/dL [facility] SERVICES GLUCOSE 193 (H) 70 - 110 mg/dL [facility] SERVICES CREATININE 0.78 0.60 - 1.25 [facility] mg/dL SERVICES CALCIUM 8.4 (L) 8.6 - 10.6 [facility] mg/dL SERVICES eGFR Calculation 103.0 mL/min/1.73m2 [facility] (Non- SERVICES [place]) eGFR Calculation 124.8 mL/min/1.73m2 [facility] () SERVICES Specimen Blood - ARM, LEFT Narrative Performed At Association of Glomerular Filtration Rate (GFR) and Staging [facility] SERVICES of Kidney Disease* + + + + | GFR (mL/min/1.73 m2) | With Kidney Damage | Without Kidney Damage + + + + | >90 | Stage one | Normal + + + + | 60-89 | Stage two | Decreased GFR + + + + | 30-59 | Stage three | Stage three + + + + | 15-29 | Stage four | Stage four + + + + | <15 (or dialysis) | Stage five | Stage five + + + + *Each stage assumes the associated GFR level has been in effect for at least three months. Stages 1 to 5, with or without kidney disease, indicate chronic kidney disease. Notes: Determination of stages one and two (with eGFR >59mL/min/1.73 m2) requires estimation of kidney damage for at least three months as defined by structural or functional abnormalities of the kidney, manifested by either: Pathological abnormalities or Markers of kidney damage (including abnormalities in the composition of the blood or urine or abnormalities in imaging tests). Performing Organization Address City/State/Zipcode Phone Number [facility] CLIA: [id number], [address] [place] [phone] [facility] MAGNESIUM (12/13/2019 9:44 AM SERVICENOW ADMINISTRATOR) MAGNESIUM 1.8 1.7 - 2.4 mg/dL [facility] SERVICES Specimen Blood - ARM, LEFT Performing Organization Address [facility] Phone Number [facility] CLIA: [id number], [address] [place] [address] [facility] PROFILE / HEMOGRAM (12/13/2019 5:07 AM SERVICENOW ADMINISTRATOR) WBC 5.09 4.20 - 10.70 [facility] 10*3/L SERVICES RBC 3.25 (L) 4.26 - 5.52 [facility] 10*6/L SERVICES HGB 9.8 (L) 12.2 - 16.4 g/dL [facility] SERVICES HCT 29.6 (L) 38.4 - 49.3 % [facility] SERVICES MCH 30.2 26.1 - 32.7 pg [facility] SERVICES MCV 91.1 81.7 - 95.6 fL [facility] SERVICES MCHC 33.1 31.2 - 35.0 g/dL [facility] SERVICES PLT 113 (L) 150 - 328 10*3/L [facility] SERVICES MPV 13.4 (H) 9.8 - 13.0 fL [facility] SERVICES RDW-CV 21.5 (H) 12.1 - 15.4 % [facility] SERVICES RDW-SD 69.9 (H) 38.5 - 51.6 fL [facility] SERVICES NRBC x10^3 <0.01 10*3/L [facility] SERVICES NRBC/100 WBC 0.0 0.0 - 10.0 /100 [facility] WBCs SERVICES IPF % [facility] SERVICES Specimen Blood - ARM, LEFT Performing Organization Address City/[facility]/Zipcode Phone Number [facility] CLIA: [id number], [address] [place], [place] [phone] [facility] BASIC METABOLIC PANEL (NA, K, CL, CO2, GLUCOSE, BUN, CREATININE, [place]) (2019 5:28 AM SERVICENOW ADMINISTRATOR) NA 136 135 - 145 [facility] mmol/L SERVICES K 3.6 3.5 - 5.0 [facility] mmol/L SERVICES CL 96 (L) 98 - 108 mmol/L [facility] SERVICES CO2 TOTAL 30 23 - 31 mmol/L [facility] SERVICES AGAP 10 2 - 16 [facility] SERVICES BUN 22 7 - 23 mg/dL [facility] SERVICES GLUCOSE 139 (H) 70 - 110 mg/dL [facility] SERVICES CREATININE 1.07 0.60 - 1.25 [facility] mg/dL SERVICES CALCIUM 8.0 (L) 8.6 - 10.6 [facility] mg/dL SERVICES eGFR Calculation 71.5 mL/min/1.73m2 [facility] (Non- SERVICES [place]) eGFR Calculation 86.6 mL/min/1.73m2 [facility] () SERVICES Specimen Blood - ARM, LEFT Narrative Performed At Association of Glomerular Filtration Rate (GFR) and Staging [facility] SERVICES of Kidney Disease* + + + + | GFR (mL/min/1.73 m2) | With Kidney Damage | Without Kidney Damage + + + + | >90 | Stage one | Normal + + + + | 60-89 | Stage two | Decreased GFR + + + + | 30-59 | Stage three | Stage three + + + + | 15-29 | Stage four | Stage four + + + + | <15 (or dialysis) | Stage five | Stage five + + + + *Each stage assumes the associated GFR level has been in effect for at least three months. Stages 1 to 5, with or without kidney disease, indicate chronic kidney disease. Notes: Determination of stages one and two (with eGFR >59mL/min/1.73 m2) requires estimation of kidney damage for at least three months as defined by structural or functional abnormalities of the kidney, manifested by either: Pathological abnormalities or Markers of kidney damage (including abnormalities in the composition of the blood or urine or abnormalities in imaging tests). Performing Organization Address City/State/Zipcode Phone Number [facility] CLIA: [id number], [address] [place] [address] [phone] [facility] MAGNESIUM (12/12/2019 5:28 AM SERVICENOW ADMINISTRATOR) [facility] MAGNESIUM 1.8 1.7 - 2.4 mg/dL [facility] Specimen Blood - ARM, LEFT Performing Organization Address City/[facility]/Zipcode Phone Number [facility] CLIA: [id number], [address] [place] [phone] [facility] CBC WITH DIFFERENTIAL (12/11/2019 4:12 AM SERVICENOW ADMINISTRATOR) WBC 4.60 4.20 - 10.70 [facility] 10*3/L SERVICES RBC 3.23 (L) 4.26 - 5.52 [facility] 10*6/L SERVICES HGB 9.8 (L) 12.2 - 16.4 [facility] g/dL SERVICES HCT 29.2 (L) 38.4 - 49.3 % [facility] MCV 90.4 81.7 - 95.6 fL [facility] MCH 30.3 26.1 - 32.7 pg [facility] MCHC 33.6 31.2 - 35.0 [facility] g/dL SERVICES RDW-SD 67.8 (H) 38.5 - 51.6 fL [facility] RDW-CV 20.9 (H) 12.1 - 15.4 % [facility] SERVICES PLT 111 (L) 150 - 328 [facility] 10*3/L SERVICES MPV 12.4 9.8 - 13.0 fL [facility] SERVICES NRBC/100 WBC 0.0 0.0 - 10.0 /100 [facility] WBCs SERVICES NRBC x10^3 <0.01 10*3/L [facility] GRAN MAT (NEUT) % 54.8 % [facility] IMM GRAN % 0.40 % [facility] LYMPH % 29.6 % [facility] MONO % 11.5 % [facility] EOS % 3.5 % [facility] BASO % 0.2 % [facility] GRAN MAT x10^3(ANC) 2.52 1.99 - 6.95 [facility] 10*3/uL SERVICES IMM GRAN x10^3 <0.03 0.00 - 0.06 [facility] 10*3/uL SERVICES LYMPH x10^3 1.36 1.09 - 3.23 [facility] 10*3/uL SERVICES MONO x10^3 0.53 0.36 - 1.02 [facility] 10*3/uL SERVICES EOS x10^3 0.16 0.06 - 0.53 [facility] 10*3/uL SERVICES BASO x10^3 <0.03 0.01 - 0.09 [facility] 10*3/uL SERVICES Specimen Blood - ARM, RIGHT Performing Organization Address City/State/Zipcode Phone Number [facility] CLIA: [id number], [address] [place] [address] [facility] BASIC METABOLIC PANEL (NA, K, CL, CO2, GLUCOSE, BUN, CREATININE, [place]) (2019 4:12 AM SERVICENOW ADMINISTRATOR) NA 136 135 - 145 [facility] mmol/L SERVICES K 4.0 3.5 - 5.0 [facility] mmol/L SERVICES CL 99 98 - 108 mmol/L [facility] SERVICES CO2 TOTAL 29 23 - 31 mmol/L [facility] SERVICES AGAP 8 2 - 16 [facility] SERVICES BUN 18 7 - 23 mg/dL [facility] SERVICES GLUCOSE 146 (H) 70 - 110 mg/dL [facility] SERVICES CREATININE 0.83 0.60 - 1.25 [facility] mg/dL SERVICES CALCIUM 8.1 (L) 8.6 - 10.6 [facility] mg/dL SERVICES eGFR Calculation 95.8 mL/min/1.73m2 [facility] (Non- SERVICES [place]) eGFR Calculation 116.2 mL/min/1.73m2 [facility] () SERVICES Specimen Blood - ARM, RIGHT Narrative Performed At [employer] of Glomerular Filtration Rate (GFR) and Staging [facility] SERVICES of Kidney Disease* + + + + | GFR (mL/min/1.73 m2) | With Kidney Damage | Without Kidney Damage + + + + | >90 | Stage one | Normal + + + + | 60-89 | Stage two | Decreased GFR + + + + | 30-59 | Stage three | Stage three + + + + | 15-29 | Stage four | Stage four + + + + | <15 (or dialysis) | Stage five | Stage five + + + + *Each stage assumes the associated GFR level has been in effect for at least three months. Stages 1 to 5, with or without kidney disease, indicate chronic kidney disease. Notes: Determination of stages one and two (with eGFR >59mL/min/1.73 m2) requires estimation of kidney damage for at least three months as defined by structural or functional abnormalities of the kidney, manifested by either: Pathological abnormalities or Markers of kidney damage (including abnormalities in the composition of the blood or urine or abnormalities in imaging tests). Performing Organization Address City/State/Zipcode Phone Number [facility] CLIA: [id number], [address] [place] [address] [phone] [facility] MAGNESIUM (12/11/2019 4:12 AM SERVICENOW ADMINISTRATOR) MAGNESIUM 1.8 1.7 - 2.4 mg/dL [facility] Specimen Blood - ARM, RIGHT Performing Organization Address City/State/Zipcode Phone Number [facility] CLIA: [id number], [address] [place] [address] [facility] BASIC METABOLIC PANEL (NA, K, CL, CO2, GLUCOSE, BUN, CREATININE, CA) (2019 4:46 AM SERVICENOW ADMINISTRATOR) NA 133 (L) 135 - 145 [facility] mmol/L SERVICES K 4.2 3.5 - 5.0 [facility] mmol/L SERVICES CL 96 (L) 98 - 108 mmol/L [facility] CO2 TOTAL 28 23 - 31 mmol/L [facility] AGAP 9 2 - 16 [facility] BUN 18 7 - 23 mg/dL [facility] GLUCOSE 178 (H) 70 - 110 mg/dL [facility] CREATININE 0.82 0.60 - 1.25 [facility] mg/dL SERVICES CALCIUM 8.1 (L) 8.6 - 10.6 [facility] mg/dL SERVICES eGFR Calculation 97.2 mL/min/1.73m2 [facility] (Non- SERVICES Tanzanian) eGFR Calculation 117.8 mL/min/1.73m2 [facility] () SERVICES Specimen Blood - ARM, LEFT Narrative Performed At Association of Glomerular Filtration Rate (GFR) and Staging [facility] of Kidney Disease* + + + + | GFR (mL/min/1.73 m2) | With Kidney Damage | Without Kidney Damage + + + + | >90 | Stage one | Normal + + + + | 60-89 | Stage two | Decreased GFR + + + + | 30-59 | Stage three | Stage three + + + + | 15-29 | Stage four | Stage four + + + + | <15 (or dialysis) | Stage five | Stage five + + + + *Each stage assumes the associated GFR level has been in effect for at least three months. Stages 1 to 5, with or without kidney disease, indicate chronic kidney disease. Notes: Determination of stages one and two (with eGFR >59mL/min/1.73 m2) requires estimation of kidney damage for at least three months as defined by structural or functional abnormalities of the kidney, manifested by either: Pathological abnormalities or Markers of kidney damage (including abnormalities in the composition of the blood or urine or abnormalities in imaging tests). Performing Organization Address City/State/Zipcode Phone Number [facility] CLIA: [id number], [address] [place] [phone] [facility] MAGNESIUM (12/10/2019 4:46 AM SERVICENOW ADMINISTRATOR) MAGNESIUM 1.9 1.7 - 2.4 mg/dL [facility] Specimen Blood - ARM, LEFT Performing Organization Address City/[facility]/Zipcode Phone Number [facility] CLIA: [id number], [address] [place] [phone] [facility] CBC WITH DIFFERENTIAL (12/09/2019 4:01 AM SERVICENOW ADMINISTRATOR) WBC 4.57 4.20 - 10.70 [facility] 10*3/L SERVICES RBC 3.37 (L) 4.26 - 5.52 [facility] 10*6/L SERVICES HGB 10.1 (L) 12.2 - 16.4 [facility] g/dL SERVICES HCT 30.0 (L) 38.4 - 49.3 % [facility] MCV 89.0 81.7 - 95.6 fL [facility] MCH 30.0 26.1 - 32.7 pg [facility] MCHC 33.7 31.2 - 35.0 [facility] g/dL SERVICES RDW-SD 62.2 (H) 38.5 - 51.6 fL [facility] RDW-CV 20.6 (H) 12.1 - 15.4 % [facility] PLT 100 (L) 150 - 328 [facility] 10*3/L SERVICES MPV 11.8 9.8 - 13.0 fL [facility] NRBC/100 WBC 0.0 0.0 - 10.0 /100 [facility] WBCs SERVICES NRBC x10^3 <0.01 10*3/L [facility] GRAN MAT (NEUT) % 49.9 % [facility] IMM GRAN % 0.40 % [facility] LYMPH % 31.5 % [facility] MONO % 13.6 % [facility] EOS % 4.4 % [facility] BASO % 0.2 % [facility] GRAN MAT x10^3(ANC) 2.28 1.99 - 6.95 [facility] 10*3/uL SERVICES IMM GRAN x10^3 <0.03 0.00 - 0.06 [facility] 10*3/uL SERVICES LYMPH x10^3 1.44 1.09 - 3.23 [facility] 10*3/uL SERVICES MONO x10^3 0.62 0.36 - 1.02 [facility] 10*3/uL SERVICES EOS x10^3 0.20 0.06 - 0.53 [facility] 10*3/uL SERVICES BASO x10^3 <0.03 0.01 - 0.09 [facility] 10*3/uL SERVICES Specimen Blood - ARM, LEFT Performing Organization Address City/State/Zipcode Phone Number [facility] CLIA: [id number], [address] [place] [address] [phone] [facility] BASIC METABOLIC PANEL (NA, K, CL, CO2, GLUCOSE, BUN, CREATININE, CA) (2019 4:01 AM SERVICENOW ADMINISTRATOR) NA 134 (L) 135 - 145 [facility] mmol/L SERVICES K 4.1 3.5 - 5.0 [facility] mmol/L SERVICES CL 96 (L) 98 - 108 mmol/L [facility] CO2 TOTAL 29 23 - 31 mmol/L [facility] AGAP 9 2 - 16 [facility] BUN 18 7 - 23 mg/dL [facility] GLUCOSE 122 (H) 70 - 110 mg/dL [facility] CREATININE 0.77 0.60 - 1.25 [facility] mg/dL SERVICES CALCIUM 8.4 (L) 8.6 - 10.6 [facility] mg/dL SERVICES eGFR Calculation 104.5 mL/min/1.73m2 [facility] (Non- SERVICES [place]anian) eGFR Calculation 126.7 mL/min/1.73m2 [facility] () SERVICES Specimen Blood - ARM, LEFT Narrative Performed At Association of Glomerular Filtration Rate (GFR) and Staging [facility] of Kidney Disease* + + + + | GFR (mL/min/1.73 m2) | With Kidney Damage | Without Kidney Damage + + + + | >90 | Stage one | Normal + + + + | 60-89 | Stage two | Decreased GFR + + + + | 30-59 | Stage three | Stage three + + + + | 15-29 | Stage four | Stage four + + + + | <15 (or dialysis) | Stage five | Stage five + + + + *Each stage assumes the associated GFR level has been in effect for at least three months. Stages 1 to 5, with or without kidney disease, indicate chronic kidney disease. Notes: Determination of stages one and two (with eGFR >59mL/min/1.73 m2) requires estimation of kidney damage for at least three months as defined by structural or functional abnormalities of the kidney, manifested by either: Pathological abnormalities or Markers of kidney damage (including abnormalities in the composition of the blood or urine or abnormalities in imaging tests). Performing Organization Address City/[facility]/Zipcode Phone Number [facility] CLIA: [id number], [address] [place] [address] [phone] [facility] MAGNESIUM (12/09/2019 4:01 AM SERVICENOW ADMINISTRATOR) MAGNESIUM 1.6 (L) 1.7 - 2.4 mg/dL [facility] Specimen Blood - ARM, LEFT Performing Organization Address City/[facility]/Zipcode Phone Number [facility] CLIA: [id number], [address] [place] [phone] [facility] BASIC METABOLIC PANEL (NA, K, CL, CO2, GLUCOSE, BUN, CREATININE, CA) (2019 4:57 AM SERVICENOW ADMINISTRATOR) NA 135 135 - 145 [facility] mmol/L SERVICES K 4.4 3.5 - 5.0 [facility] mmol/L SERVICES CL 100 98 - 108 [facility] mmol/L SERVICES CO2 TOTAL 29 23 - 31 [facility] mmol/L SERVICES AGAP 6 2 - 16 [facility] BUN 18Comment: Slight 7 - 23 mg/dL [facility] hemolysis SERVICES GLUCOSE 164 (H) 70 - 110 [facility] mg/dL SERVICES CREATININE 0.76 0.60 - 1.25 [facility] mg/dL SERVICES CALCIUM 8.1 (L) 8.6 - 10.6 [facility] mg/dL SERVICES eGFR Calculation 106.1 mL/min/1.73m2 [facility] (Non- SERVICES [place]anian) eGFR Calculation 128.6 mL/min/1.73m2 [facility] () SERVICES Specimen Blood - ARM, RIGHT Narrative Performed At Association of Glomerular Filtration Rate (GFR) and Staging [facility] of Kidney Disease* + + + + | GFR (mL/min/1.73 m2) | With Kidney Damage | Without Kidney Damage + + + + | >90 | Stage one | Normal + + + + | 60-89 | Stage two | Decreased GFR + + + + | 30-59 | Stage three | Stage three + + + + | 15-29 | Stage four | Stage four + + + + | <15 (or dialysis) | Stage five | Stage five + + + + *Each stage assumes the associated GFR level has been in effect for at least three months. Stages 1 to 5, with or without kidney disease, indicate chronic kidney disease. Notes: Determination of stages one and two (with eGFR >59mL/min/1.73 m2) requires estimation of kidney damage for at least three months as defined by structural or functional abnormalities of the kidney, manifested by either: Pathological abnormalities or Markers of kidney damage (including abnormalities in the composition of the blood or urine or abnormalities in imaging tests). Performing Organization Address City/[facility]/Zipcode Phone Number [facility] CLIA: [id number], [address] [place] [address] [facility] MAGNESIUM (12/08/2019 4:57 AM SERVICENOW ADMINISTRATOR) MAGNESIUM 1.3 (L) 1.7 - 2.4 mg/dL [facility] Specimen Blood - ARM, RIGHT Performing Organization Address [facility] Phone Number [facility] CLIA: [id number], [address] [place] [phone] [facility] BASIC METABOLIC PANEL (NA, K, CL, CO2, GLUCOSE, BUN, CREATININE, CA) (2019 5:44 AM SERVICENOW ADMINISTRATOR) NA 135 135 - 145 [facility] mmol/L SERVICES K 4.6Comment: 3.5 - 5.0 [facility] Slight hemolysis mmol/L SERVICES CL 100 98 - 108 [facility] mmol/L SERVICES CO2 TOTAL 28 23 - 31 [facility] mmol/L SERVICES AGAP 7 2 - 16 [facility] SERVICES BUN 18Comment: Slight 7 - 23 mg/dL [facility] hemolysis SERVICES GLUCOSE 150 (H) 70 - 110 [facility] mg/dL SERVICES CREATININE 0.75 0.60 - 1.25 [facility] mg/dL SERVICES CALCIUM 8.2 (L) 8.6 - 10.6 [facility] mg/dL SERVICES eGFR Calculation 107.7 mL/min/1.73m2 [facility] (Non- SERVICES [place]) eGFR Calculation 130.6 mL/min/1.73m2 [facility] () SERVICES Specimen Blood - ARM, RIGHT Narrative Performed At Association of Glomerular Filtration Rate (GFR) and Staging [facility] of Kidney Disease* + + + + | GFR (mL/min/1.73 m2) | With Kidney Damage | Without Kidney Damage + + + + | >90 | Stage one | Normal + + + + | 60-89 | Stage two | Decreased GFR + + + + | 30-59 | Stage three | Stage three + + + + | 15-29 | Stage four | Stage four + + + + | <15 (or dialysis) | Stage five | Stage five + + + + *Each stage assumes the associated GFR level has been in effect for at least three months. Stages 1 to 5, with or without kidney disease, indicate chronic kidney disease. Notes: Determination of stages one and two (with eGFR >59mL/min/1.73 m2) requires estimation of kidney damage for at least three months as defined by structural or functional abnormalities of the kidney, manifested by either: Pathological abnormalities or Markers of kidney damage (including abnormalities in the composition of the blood or urine or abnormalities in imaging tests). Performing Organization Address [facility]/Zipcode Phone Number [facility] CLIA: [id number], [address] [place] [phone] [facility] MAGNESIUM (12/07/2019 5:44 AM SERVICENOW ADMINISTRATOR) MAGNESIUM 1.5 (L) 1.7 - 2.4 mg/dL [facility] Specimen Blood - ARM, RIGHT Performing Organization Address [facility]/Zipcode Phone Number [facility] CLIA: [id number], [address] [place] [phone] [facility] XR CHEST 1 VW (12/06/2019 3:02 PM SERVICENOW ADMINISTRATOR) Specimen Impressions Performed At PACS/VR/DOSE Stable right pleural effusion. Cardiomegaly with decrease in pulmonary edema. Preliminary Report Dictated by Resident: Roselyn Mercedes MD., have reviewed this study and agree with the above report. Narrative Performed At EXAM: XR CHEST 1 VW PACS/VR/DOSE CLINICAL INDICATION: sob COMPARISON: 11/28/2019 FINDINGS: Unchanged right pleural effusion with silhouetting of the right hemidiaphragm. Interval decrease in pulmonary vascular congestion and pulmonary edema. No pneumothorax . Minor fissure is thickened. The cardiac silhouette is enlarged, but unchanged from prior study. No acute osseous abnormality. A small metallic density projects over the cardiac silhouette, and is seen on prior studies. Procedure Note [facility], [place], Radiant Results Inft User - 12/06/2019 7:00 PM SERVICENOW ADMINISTRATOR EXAM: XR CHEST 1 VW CLINICAL INDICATION: sob COMPARISON: 11/28/2019 FINDINGS: Unchanged right pleural effusion with silhouetting of the right hemidiaphragm. Interval decrease in pulmonary vascular congestion and pulmonary edema. No pneumothorax . Minor fissure is thickened. The cardiac silhouette is enlarged, but unchanged from prior study. No acute osseous abnormality. A small metallic density projects over the cardiac silhouette, and is seen on prior studies. IMPRESSION Stable right pleural effusion. Cardiomegaly with decrease in pulmonary edema. Preliminary Report Dictated by Resident: Roselyn Mercedes MD., have reviewed this study and agree with the above report. Performing Organization Address City/State/Zipcode Phone Number PACS/VR/DOSE EXTRA TUBE LAV (12/06/2019 4:33 AM SERVICENOW ADMINISTRATOR) Specimen Blood Performing Organization Address City/State/Zipcode Phone Number [facility] CLIA: [id number], [address] [place] [phone] [facility] HEPATIC FUNCTION PANEL ([id number]) (ALB,T.PRO,BILI T,BU/BC,ALT,AST,ALK PHOS) (2019 4:33 AM SERVICENOW ADMINISTRATOR) TOTAL BILI 1.3 (H) 0.1 - 1.1 mg/dL [facility] BILI UNCON 0.8 0.1 - 1.1 mg/dL [facility] BILI CONJ 0.0 0.0 - 0.3 mg/dL [facility] T PROTEIN 5.8 (L) 6.3 - 8.2 g/dL [facility] ALBUMIN 2.7 (L) 3.5 - 5.0 g/dL [facility] ALK PHOS 57 34 - 122 U/L [facility] ALTv 62 (H) 5 - 50 U/L [facility] AST(SGOT) 110 (H) 13 - 40 U/L [facility] Specimen Blood - ARM, RIGHT Performing Organization Address City/State/Zipcode Phone Number [facility] CLIA: [id number], [address] [place] [address] [phone] [facility] BASIC METABOLIC PANEL (NA, K, CL, CO2, GLUCOSE, BUN, CREATININE, CA) (2019 4:33 AM SERVICENOW ADMINISTRATOR) NA 137 135 - 145 [facility] mmol/L SERVICES K 4.6Comment: 3.5 - 5.0 [facility] Slight hemolysis mmol/L SERVICES CL 102 98 - 108 [facility] mmol/L SERVICES CO2 TOTAL 27 23 - 31 [facility] mmol/L SERVICES AGAP 8 2 - 16 [facility] SERVICES BUN 20Comment: Slight 7 - 23 mg/dL [facility] hemolysis SERVICES GLUCOSE 173 (H) 70 - 110 [facility] mg/dL SERVICES CREATININE 0.78 0.60 - 1.25 [facility] mg/dL SERVICES CALCIUM 7.9 (L) 8.6 - 10.6 [facility] mg/dL SERVICES eGFR Calculation 103.0 mL/min/1.73m2 [facility] (Non- SERVICES [place]) eGFR Calculation 124.8 mL/min/1.73m2 [facility] () SERVICES Specimen Blood - ARM, RIGHT Narrative Performed At Association of Glomerular Filtration Rate (GFR) and Staging [facility] of Kidney Disease* + + + + | GFR (mL/min/1.73 m2) | With Kidney Damage | Without Kidney Damage + + + + | >90 | Stage one | Normal + + + + | 60-89 | Stage two | Decreased GFR + + + + | 30-59 | Stage three | Stage three + + + + | 15-29 | Stage four | Stage four + + + + | <15 (or dialysis) | Stage five | Stage five + + + + *Each stage assumes the associated GFR level has been in effect for at least three months. Stages 1 to 5, with or without kidney disease, indicate chronic kidney disease. Notes: Determination of stages one and two (with eGFR >59mL/min/1.73 m2) requires estimation of kidney damage for at least three months as defined by structural or functional abnormalities of the kidney, manifested by either: Pathological abnormalities or Markers of kidney damage (including abnormalities in the composition of the blood or urine or abnormalities in imaging tests). Performing Organization Address City/State/Zipcode Phone Number [facility] CLIA: [id number], [address] [place] [address] [phone] [facility] MAGNESIUM (12/06/2019 4:33 AM SERVICENOW ADMINISTRATOR) MAGNESIUM 1.8 1.7 - 2.4 mg/dL [facility] Specimen Blood - ARM, RIGHT Performing Organization Address [facility] Phone Number [facility] CLIA: [id number], [address] [place] [address] [phone] [facility] CBC WITH DIFFERENTIAL (12/05/2019 4:51 AM SERVICENOW ADMINISTRATOR) WBC 4.97 4.20 - 10.70 [facility] 10*3/L SERVICES RBC 3.19 (L) 4.26 - 5.52 [facility] 10*6/L SERVICES HGB 9.5 (L) 12.2 - 16.4 [facility] g/dL SERVICES HCT 28.5 (L) 38.4 - 49.3 % [facility] MCV 89.3 81.7 - 95.6 [facility] fL SERVICES MCH 29.8 26.1 - 32.7 [facility] pg SERVICES MCHC 33.3 31.2 - 35.0 [facility] g/dL SERVICES RDW-SD 58.9 (H) 38.5 - 51.6 [facility] fL SERVICES RDW-CV 18.6 (H) 12.1 - 15.4 % [facility] PLT 70 (L) 150 - 328 [facility] 10*3/L SERVICES MPV 12.8 9.8 - 13.0 fL [facility] IPF % 10.3Comment: 1.2 - 10.7 % [facility] Platelet count SERVICES measured by fluorescence method. NRBC/100 WBC 0.0 0.0 - 10.0 [facility] /100 WBCs SERVICES NRBC x10^3 <0.01 10*3/L [facility] GRAN MAT (NEUT) % 47.9 % [facility] IMM GRAN % 0.40 % [facility] LYMPH % 35.0 % [facility] MONO % 12.3 % [facility] EOS % 4.0 % [facility] BASO % 0.4 % [facility] GRAN MAT 2.38 1.99 - 6.95 [facility] x10^3(ANC) 10*3/uL SERVICES IMM GRAN x10^3 <0.03 0.00 - 0.06 [facility] 10*3/uL SERVICES LYMPH x10^3 1.74 1.09 - 3.23 [facility] 10*3/uL SERVICES MONO x10^3 0.61 0.36 - 1.02 [facility] 10*3/uL SERVICES EOS x10^3 0.20 0.06 - 0.53 [facility] 10*3/uL SERVICES BASO x10^3 <0.03 0.01 - 0.09 [facility] 10*3/uL SERVICES Specimen Blood - ARM, LEFT Performing Organization Address [facility] Phone Number [facility] CLIA: [id number], [address] [place] [address] [facility] HEPATIC FUNCTION PANEL ([id number]) (ALB,T.PRO,BILI T,BU/BC,ALT,AST,ALK PHOS) (2019 4:51 AM SERVICENOW ADMINISTRATOR) TOTAL BILI 1.3 (H) 0.1 - 1.1 mg/dL [facility] BILI UNCON 0.8 0.1 - 1.1 mg/dL [facility] BILI CONJ 0.0 0.0 - 0.3 mg/dL [facility] T PROTEIN 5.9 (L) 6.3 - 8.2 g/dL [facility] ALBUMIN 2.9 (L) 3.5 - 5.0 g/dL [facility] ALK PHOS 59 34 - 122 U/L [facility] ALTv 64 (H) 5 - 50 U/L [facility] AST(SGOT) 119 (H) 13 - 40 U/L [facility] Specimen Blood - ARM, LEFT Performing Organization Address [facility] Phone Number [facility] CLIA: [id number], [address] [place] [address] [facility] BASIC METABOLIC PANEL (NA, K, CL, CO2, GLUCOSE, BUN, CREATININE, CA) (2019 4:51 AM SERVICENOW ADMINISTRATOR) NA 134 (L) 135 - 145 [facility] mmol/L SERVICES K 4.9Comment: 3.5 - 5.0 [facility] Slight hemolysis mmol/L SERVICES CL 96 (L) 98 - 108 [facility] mmol/L SERVICES CO2 TOTAL 31 23 - 31 [facility] mmol/L SERVICES AGAP 7 2 - 16 [facility] SERVICES BUN 25 (H)Comment: 7 - 23 mg/dL [facility] Slight hemolysis SERVICES GLUCOSE 120 (H) 70 - 110 [facility] mg/dL SERVICES CREATININE 0.80 0.60 - 1.25 [facility] mg/dL SERVICES CALCIUM 8.0 (L) 8.6 - 10.6 [facility] mg/dL SERVICES eGFR Calculation 100.0 mL/min/1.73m2 [facility] (Non- SERVICES [place]) eGFR Calculation 121.2 mL/min/1.73m2 [facility] () SERVICES Specimen Blood - ARM, LEFT Narrative Performed At Association of Glomerular Filtration Rate (GFR) and Staging [facility] of Kidney Disease* + + + + | GFR (mL/min/1.73 m2) | With Kidney Damage | Without Kidney Damage + + + + | >90 | Stage one | Normal + + + + | 60-89 | Stage two | Decreased GFR + + + + | 30-59 | Stage three | Stage three + + + + | 15-29 | Stage four | Stage four + + + + | <15 (or dialysis) | Stage five | Stage five + + + + *Each stage assumes the associated GFR level has been in effect for at least three months. Stages 1 to 5, with or without kidney disease, indicate chronic kidney disease. Notes: Determination of stages one and two (with eGFR >59mL/min/1.73 m2) requires estimation of kidney damage for at least three months as defined by structural or functional abnormalities of the kidney, manifested by either: Pathological abnormalities or Markers of kidney damage (including abnormalities in the composition of the blood or urine or abnormalities in imaging tests). Performing Organization Address City/State/Zipcode Phone Number [facility] CLIA: [id number], [address] [place] [phone] [facility] MAGNESIUM (12/05/2019 4:51 AM SERVICENOW ADMINISTRATOR) MAGNESIUM 1.7 1.7 - 2.4 mg/dL [facility] Specimen Blood - ARM, LEFT Performing Organization Address [facility] Phone Number [facility] CLIA: [id number], [address] [place] [phone] [facility] HEPATIC FUNCTION PANEL ([id number]) (ALB,T.PRO,BILI T,BU/BC,ALT,AST,ALK PHOS) (2019 5:18 AM SERVICENOW ADMINISTRATOR) TOTAL BILI 1.1 0.1 - 1.1 mg/dL [facility] BILI UNCON 0.7 0.1 - 1.1 mg/dL [facility] BILI CONJ 0.0 0.0 - 0.3 mg/dL [facility] T PROTEIN 6.3 6.3 - 8.2 g/dL [facility] ALBUMIN 3.1 (L) 3.5 - 5.0 g/dL [facility] ALK PHOS 63 34 - 122 U/L [facility] ALTv 63 (H) 5 - 50 U/L [facility] AST(SGOT) 127 (H) 13 - 40 U/L [facility] Specimen Blood - ARM, RIGHT Performing Organization Address [facility] Phone Number [facility] CLIA: [id number], [address] [place] [phone] [facility] BASIC METABOLIC PANEL (NA, K, CL, CO2, GLUCOSE, BUN, CREATININE, CA) (2019 5:18 AM SERVICENOW ADMINISTRATOR) NA 135 135 - 145 [facility] mmol/L SERVICES K 4.5 3.5 - 5.0 [facility] mmol/L SERVICES CL 101 98 - 108 mmol/L [facility] CO2 TOTAL 24 23 - 31 mmol/L [facility] AGAP 10 2 - 16 [facility] BUN 27 (H) 7 - 23 mg/dL [facility] GLUCOSE 164 (H) 70 - 110 mg/dL [facility] CREATININE 0.90 0.60 - 1.25 [facility] mg/dL SERVICES CALCIUM 8.4 (L) 8.6 - 10.6 [facility] mg/dL SERVICES eGFR Calculation 87.3 mL/min/1.73m2 [facility] (Non- SERVICES Tanzanian) eGFR Calculation 105.8 mL/min/1.73m2 [facility] () SERVICES Specimen Blood - ARM, RIGHT Narrative Performed At Association of Glomerular Filtration Rate (GFR) and Staging [facility] of Kidney Disease* + + + + | GFR (mL/min/1.73 m2) | With Kidney Damage | Without Kidney Damage + + + + | >90 | Stage one | Normal + + + + | 60-89 | Stage two | Decreased GFR + + + + | 30-59 | Stage three | Stage three + + + + | 15-29 | Stage four | Stage four + + + + | <15 (or dialysis) | Stage five | Stage five + + + + *Each stage assumes the associated GFR level has been in effect for at least three months. Stages 1 to 5, with or without kidney disease, indicate chronic kidney disease. Notes: Determination of stages one and two (with eGFR >59mL/min/1.73 m2) requires estimation of kidney damage for at least three months as defined by structural or functional abnormalities of the kidney, manifested by either: Pathological abnormalities or Markers of kidney damage (including abnormalities in the composition of the blood or urine or abnormalities in imaging tests). Performing Organization Address City/[facility] Phone Number [facility] CLIA: [id number], [address] [place], [place] [id number] [facility] MAGNESIUM (12/04/2019 5:18 AM SERVICENOW ADMINISTRATOR) MAGNESIUM 1.6 (L) 1.7 - 2.4 mg/dL [facility] Specimen Blood - ARM, RIGHT Performing Organization Address [facility]/Zipcode Phone Number [facility] CLIA: [id number], [address] [place] [address] [phone] [facility] HEPATITIS C VIRUS GENOTYPE (12/03/2019 4:17 PM SERVICENOW ADMINISTRATOR) HCV GENOTYPING Type 1A [facility] Specimen Blood - ARM, LEFT Narrative Performed At TEST INFORMATION: [facility] Isolates of hepatitis C virus are grouped into six genotypes: types 1, 2, 3, 4, 5, and 6. Reports suggest that patient prognosis and disease course may be genotype dependent. For example, hepatitis C virus type 1 and type 4 infections may be associated with more severe disease and decreased responsiveness to therapy, and types 2 and 3 may be treated with shorter durations of therapy. The test uses Line Probe Assay (LiPA 2.0), an Analyte Specific Reagent (ASR)from [employer]. Patient RNA is assayed using reverse performance tester polymerase chain reaction (RT-PCR) to amplify a specific portion of the 5' untranslated region (5'UTR) and the core region of the hepatitis C virus. The amplified nucleic acid is detected by line probe hybridization for 6 HCV genotypes. This test was developed and its performance characteristic determined by [facility]. It has not been cleared or approved by the U.S. Food and Drug Administration (FDA). The FDA has determined that such clearance or approval is not necessary. This test is used for clinical purposes. It should not be regarded as investigational or for research. This laboratory is certified under the Clinical Laboratory Improvement amendments of 1988 (CLIA-88) as qualified to perform high complexity clinical laboratory testing. Performing Organization Address City/State/Zipcode Phone Number [facility] CLIA: [id number], [address] [place] [phone] [facility] BASIC METABOLIC PANEL (NA, K, CL, CO2, GLUCOSE, BUN, CREATININE, CA) (2019 1:50 PM SERVICENOW ADMINISTRATOR) NA 135 135 - 145 [facility] mmol/L SERVICES K 4.7 3.5 - 5.0 [facility] mmol/L SERVICES CL 98 98 - 108 mmol/L [facility] CO2 TOTAL 31 23 - 31 mmol/L [facility] AGAP 6 2 - 16 [facility] BUN 30 (H) 7 - 23 mg/dL [facility] GLUCOSE 150 (H) 70 - 110 mg/dL [facility] CREATININE 0.97 0.60 - 1.25 [facility] mg/dL SERVICES CALCIUM 8.2 (L) 8.6 - 10.6 [facility] mg/dL SERVICES eGFR Calculation 80.1 mL/min/1.73m2 [facility] (Non- SERVICES Tanzanian) eGFR Calculation 97.0 mL/min/1.73m2 [facility] () SERVICES Specimen Blood - ARM, LEFT Narrative Performed At [facility] of Glomerular Filtration Rate (GFR) and Staging [facility] of Kidney Disease* + + + + | GFR (mL/min/1.73 m2) | With Kidney Damage | Without Kidney Damage + + + + | >90 | Stage one | Normal + + + + | 60-89 | Stage two | Decreased GFR + + + + | 30-59 | Stage three | Stage three + + + + | 15-29 | Stage four | Stage four + + + + | <15 (or dialysis) | Stage five | Stage five + + + + *Each stage assumes the associated GFR level has been in effect for at least three months. Stages 1 to 5, with or without kidney disease, indicate chronic kidney disease. Notes: Determination of stages one and two (with eGFR >59mL/min/1.73 m2) requires estimation of kidney damage for at least three months as defined by structural or functional abnormalities of the kidney, manifested by either: Pathological abnormalities or Markers of kidney damage (including abnormalities in the composition of the blood or urine or abnormalities in imaging tests). Performing Organization Address City/State/Zipcode Phone Number [facility] CLIA: [id number], [address] [place] [address] [facility] CBC WITH DIFFERENTIAL (12/03/2019 4:46 AM SERVICENOW ADMINISTRATOR) WBC 4.13 (L) 4.20 - 10.70 [facility] 10*3/L SERVICES RBC 3.43 (L) 4.26 - 5.52 [facility] 10*6/L SERVICES HGB 10.2 (L) 12.2 - 16.4 [facility] g/dL SERVICES HCT 30.0 (L) 38.4 - 49.3 % [facility] MCV 87.5 81.7 - 95.6 [facility] fL SERVICES MCH 29.7 26.1 - 32.7 [facility] pg SERVICES MCHC 34.0 31.2 - 35.0 [facility] g/dL SERVICES RDW-SD 56.5 (H) 38.5 - 51.6 [facility] fL SERVICES RDW-CV 18.9 (H) 12.1 - 15.4 % [facility] PLT 82 (L) 150 - 328 [facility] 10*3/L SERVICES MPV 13.7 (H) 9.8 - 13.0 fL [facility] IPF % 7.9Comment: Platelet 1.2 - 10.7 % [facility] count measured by SERVICES fluorescence method. NRBC/100 WBC 0.0 0.0 - 10.0 [facility] /100 WBCs SERVICES NRBC x10^3 <0.01 10*3/L [facility] GRAN MAT (NEUT) % 50.1 % [facility] IMM GRAN % 0.20 % [facility] LYMPH % 34.9 % [facility] MONO % 10.2 % [facility] EOS % 4.1 % [facility] BASO % 0.5 % [facility] GRAN MAT 2.07 1.99 - 6.95 [facility] x10^3(ANC) 10*3/uL SERVICES IMM GRAN x10^3 <0.03 0.00 - 0.06 [facility] 10*3/uL SERVICES LYMPH x10^3 1.44 1.09 - 3.23 [facility] 10*3/uL SERVICES MONO x10^3 0.42 0.36 - 1.02 [facility] 10*3/uL SERVICES EOS x10^3 0.17 0.06 - 0.53 [facility] 10*3/uL SERVICES BASO x10^3 <0.03 0.01 - 0.09 [facility] 10*3/uL SERVICES ARTURO CELLS 2+ (A) (none) [facility] BANDS Increased (A) [facility] REACT LYMPHS Rare [facility] Specimen Blood - LINE, VENOUS Performing Organization Address City/State/Zipcode Phone Number [facility] CLIA: [id number], [address] [place], [place] [phone] [facility] HEPATIC FUNCTION PANEL ([id number]) (ALB,T.PRO,BILI T,BU/BC,ALT,AST,ALK PHOS) (2019 4:46 AM SERVICENOW ADMINISTRATOR) TOTAL BILI 1.6 (H) 0.1 - 1.1 mg/dL [facility] BILI UNCON 0.8 0.1 - 1.1 mg/dL [facility] BILI CONJ 0.0 0.0 - 0.3 mg/dL [facility] T PROTEIN 6.4 6.3 - 8.2 g/dL [facility] ALBUMIN 3.2 (L) 3.5 - 5.0 g/dL [facility] ALK PHOS 56Comment: Slight 34 - 122 U/L [facility] hemolysis SERVICES ALTv 62 (H) 5 - 50 U/L [facility] AST(SGOT) 148 (H)Comment: 13 - 40 U/L [facility] Slight hemolysis SERVICES Specimen Blood - LINE, VENOUS Performing Organization Address City/State/Zipcode Phone Number [facility] CLIA: [id number], [address] [place] [address] [facility] BASIC METABOLIC PANEL (NA, K, CL, CO2, GLUCOSE, BUN, CREATININE, CA) (2019 4:46 AM SERVICENOW ADMINISTRATOR) NA 135 135 - 145 [facility] mmol/L SERVICES K 5.9 (H)Comment: 3.5 - 5.0 [facility] Slight hemolysis mmol/L SERVICES CL 100 98 - 108 [facility] mmol/L SERVICES CO2 TOTAL 29 23 - 31 [facility] mmol/L SERVICES AGAP 6 2 - 16 [facility] SERVICES BUN 32 (H)Comment: 7 - 23 mg/dL [facility] Slight hemolysis SERVICES GLUCOSE 134 (H) 70 - 110 [facility] mg/dL SERVICES CREATININE 1.08 0.60 - 1.25 [facility] mg/dL SERVICES CALCIUM 8.1 (L) 8.6 - 10.6 [facility] mg/dL SERVICES eGFR Calculation 70.7 mL/min/1.73m2 [facility] (Non- SERVICES [place]anian) eGFR Calculation 85.7 mL/min/1.73m2 [facility] () SERVICES Specimen Blood - LINE, VENOUS Narrative Performed At Association of Glomerular Filtration Rate (GFR) and Staging [facility] of Kidney Disease* + + + + | GFR (mL/min/1.73 m2) | With Kidney Damage | Without Kidney Damage + + + + | >90 | Stage one | Normal + + + + | 60-89 | Stage two | Decreased GFR + + + + | 30-59 | Stage three | Stage three + + + + | 15-29 | Stage four | Stage four + + + + | <15 (or dialysis) | Stage five | Stage five + + + + *Each stage assumes the associated GFR level has been in effect for at least three months. Stages 1 to 5, with or without kidney disease, indicate chronic kidney disease. Notes: Determination of stages one and two (with eGFR >59mL/min/1.73 m2) requires estimation of kidney damage for at least three months as defined by structural or functional abnormalities of the kidney, manifested by either: Pathological abnormalities or Markers of kidney damage (including abnormalities in the composition of the blood or urine or abnormalities in imaging tests). Performing Organization Address City/[facility] Phone Number [facility] CLIA: [id number], [address] [place] [address] [facility] MAGNESIUM (12/03/2019 4:46 AM SERVICENOW ADMINISTRATOR) MAGNESIUM 1.8Comment: Slight 1.7 - 2.4 mg/dL [facility] hemolysis SERVICES Specimen Blood - LINE, VENOUS Performing Organization Address [facility] [place] Phone Number [facility] CLIA: [id number], [address] [place] [address] [facility] PROTHROMBIN TIME / INR (12/03/2019 4:46 AM SERVICENOW ADMINISTRATOR) PROTIME PATIENT 16.7 (H) 10.1 - 12.6 [facility] Seconds SERVICES INR 1.5Comment: Normal [facility] INR <1.1; Warfarin SERVICES Therapeutic range 2.0 to 3.0 or 2.5 to 3.5, depending upon the indications. Specimen Blood - LINE, VENOUS Performing Organization Address [facility] [place] Phone Number [facility] CLIA: [id number], [address] [place] [address] [phone] [facility] HEPATIC FUNCTION PANEL ([id number]) (ALB,T.PRO,BILI T,BU/BC,ALT,AST,ALK PHOS) (2019 4:56 AM SERVICENOW ADMINISTRATOR) TOTAL BILI 1.2 (H) 0.1 - 1.1 mg/dL [facility] BILI UNCON 0.7 0.1 - 1.1 mg/dL [facility] BILI CONJ 0.0 0.0 - 0.3 mg/dL [facility] T PROTEIN 5.7 (L) 6.3 - 8.2 g/dL [facility] ALBUMIN 2.9 (L) 3.5 - 5.0 g/dL [facility] ALK PHOS 75 34 - 122 U/L [facility] ALTv 50 5 - 50 U/L [facility] AST(SGOT) 98 (H) 13 - 40 U/L [facility] Specimen Blood - CENTRAL VENOUS LINE Performing Organization Address City/State/Zipcode Phone Number [facility] CLIA: [id number], [address] [place] [address] [facility] BASIC METABOLIC PANEL (NA, K, CL, CO2, GLUCOSE, BUN, CREATININE, CA) (2019 4:56 AM SERVICENOW ADMINISTRATOR) NA 136 135 - 145 [facility] mmol/L SERVICES K 4.5 3.5 - 5.0 [facility] mmol/L SERVICES CL 97 (L) 98 - 108 mmol/L [facility] CO2 TOTAL 31 23 - 31 mmol/L [facility] AGAP 8 2 - 16 [facility] BUN 31 (H) 7 - 23 mg/dL [facility] GLUCOSE 108 70 - 110 mg/dL [facility] CREATININE 0.79 0.60 - 1.25 [facility] mg/dL SERVICES CALCIUM 8.0 (L) 8.6 - 10.6 [facility] mg/dL SERVICES eGFR Calculation 101.5 mL/min/1.73m2 [facility] (Non- SERVICES [place]anian) eGFR Calculation 123.0 mL/min/1.73m2 [facility] () SERVICES Specimen Blood - CENTRAL VENOUS LINE Narrative Performed At Association of Glomerular Filtration Rate (GFR) and Staging [facility] of Kidney Disease* + + + + | GFR (mL/min/1.73 m2) | With Kidney Damage | Without Kidney Damage + + + + | >90 | Stage one | Normal + + + + | 60-89 | Stage two | Decreased GFR + + + + | 30-59 | Stage three | Stage three + + + + | 15-29 | Stage four | Stage four + + + + | <15 (or dialysis) | Stage five | Stage five + + + + *Each stage assumes the associated GFR level has been in effect for at least three months. Stages 1 to 5, with or without kidney disease, indicate chronic kidney disease. Notes: Determination of stages one and two (with eGFR >59mL/min/1.73 m2) requires estimation of kidney damage for at least three months as defined by structural or functional abnormalities of the kidney, manifested by either: Pathological abnormalities or Markers of kidney damage (including abnormalities in the composition of the blood or urine or abnormalities in imaging tests). Performing Organization Address [facility] Phone Number [facility] CLIA: [id number], [address] [place] [phone] [facility] MAGNESIUM (12/02/2019 4:56 AM SERVICENOW ADMINISTRATOR) [facility] MAGNESIUM 1.9 1.7 - 2.4 mg/dL [facility] Specimen Blood - CENTRAL VENOUS LINE Performing Organization Address [facility] Phone Number [facility] CLIA: [id number], [address] [place] [phone] [facility] PROTHROMBIN TIME / INR (12/02/2019 4:56 AM SERVICENOW ADMINISTRATOR) [facility] PROTIME PATIENT 17.7 (H) 10.1 - 12.6 [facility] Seconds SERVICES INR 1.6Comment: Normal [facility] INR <1.1; Warfarin SERVICES Therapeutic range 2.0 to 3.0 or 2.5 to 3.5, depending upon the indications. Specimen Blood - CENTRAL VENOUS LINE Performing Organization Address [facility] [place] Phone Number [facility] CLIA: [id number], [address] [place] [phone] [facility] LACTATE DEHYDROGENASE (12/01/2019 7:01 AM SERVICENOW ADMINISTRATOR) [facility] LDH 737 (H)Comment: 300 - 600 U/L [facility] Slight hemolysis SERVICES Specimen Blood - VENOUS Performing Organization Address [facility] Phone Number [facility] CLIA: [id number], [address] [place] [phone] [facility] HCV BY PCR (12/01/2019 5:12 AM SERVICENOW ADMINISTRATOR) [facility] HCV by Real Time PCR 5.29 Not detected log [facility] Quantitative Log IU/mL SERVICES HCV by Real-Time PCR 192,774 Not detected [facility] Quantitative IU/mL SERVICES Specimen Blood - VENOUS Narrative Performed At [employer] RealTime HCV reverse performance tester-polymerase [facility] SERVICES chain reaction (RT-PCR) assay is used. It is FDA approved for the quantitation of HCV in plasma and serum samples for HCV-infected individuals. The FDA approved dynamic range of this test is 12 IU/mL to 100,000,000 IU/mL (1.08-8.00 Log IU/mL). Assay results are reported in IU/mL. . Result Interpretation: Not Detected: Target not detected (not the same as negative), <12 IU/mL: Detected (but not quantifiable) 12-100,000,000 IU/mL, >100,000,000 IU/mL: >upper limit of quantification. Performing Organization Address [facility] Phone Number [facility] CLIA: [id number], [address] [place] [address] [phone] [facility] RETICULOCYTES AUTOMATED (12/01/2019 3:28 AM SERVICENOW ADMINISTRATOR) [facility] RETIC Count 1.71 0.59 - 2.24 % [facility] Automated SERVICES RETIC Absolute Count 0.0501 0.0260 - 0.1170 [facility] 10*6/L SERVICES IRF % 7.00 2.00 - 19.10 % [facility] SERVICES RETIC-HE 39.0 (H) 27.3 - 36.4 pg [facility] SERVICES Specimen Blood - VENOUS Performing Organization Address [facility] [place] Phone Number [facility] CLIA: [id number], [address] [place] [address] [facility] MAGNESIUM (12/01/2019 3:28 AM SERVICENOW ADMINISTRATOR) [facility] MAGNESIUM 1.7Comment: Slight 1.7 - 2.4 mg/dL [facility] hemolysis SERVICES Specimen Blood - VENOUS Performing Organization Address [facility] [place] Phone Number [facility] CLIA: [id number], [address] [place] [address] [facility] TROPONIN I (12/01/2019 3:28 AM SERVICENOW ADMINISTRATOR) [facility] TROPONIN I 0.066 (H) <=0.034 ng/mL [facility] Specimen Blood - VENOUS Narrative Performed At Equal or Less than 0.034 ng/ml---Normal [facility] Note: Cardiac troponin begins to rise 3-4 hours after the onset of ischemia. Repeat in 4-6 hours if the sample was drawn within 3-4 hours of the onset of the symptom and found normal. Between 0.035 and 0.120 ng/mL--- Borderline. Questionable myocardial injury or necrosis Note: Serial measurement may be necessary to confirm or exclude the diagnosis of myocardial injury or necrosis; Clinical correlation (symptoms, EKGs, imaging studies, and others) required; Repeat in 4-6 hours if clinically indicated. Equal or Higher than 0.121 ng/mL---Abnormal. Myocardial Injury or Necrosis Likely Biotin has been reported to cause a negative bias, interpret results relative to patient's use of biotin. Performing Organization Address City/State/Zipcode Phone Number [facility] CLIA: [id number], [address], [place] [phone] [facility] CBC WITH DIFFERENTIAL (12/01/2019 3:28 AM SERVICENOW ADMINISTRATOR) WBC 3.50 (L) 4.20 - 10.70 [facility] 10*3/L SERVICES RBC 2.93 (L) 4.26 - 5.52 [facility] 10*6/L SERVICES HGB 8.9 (L) 12.2 - 16.4 [facility] g/dL SERVICES HCT 26.2 (L) 38.4 - 49.3 % [facility] MCV 89.4 81.7 - 95.6 [facility] fL SERVICES MCH 30.4 26.1 - 32.7 [facility] pg SERVICES MCHC 34.0 31.2 - 35.0 [facility] g/dL SERVICES RDW-SD 55.4 (H) 38.5 - 51.6 [facility] fL SERVICES RDW-CV 17.6 (H) 12.1 - 15.4 % [facility] PLT 69 (L) 150 - 328 [facility] 10*3/L SERVICES MPV 12.9 9.8 - 13.0 fL [facility] IPF % 4.9Comment: Platelet 1.2 - 10.7 % [facility] count measured by SERVICES fluorescence method. NRBC/100 WBC 0.0 0.0 - 10.0 [facility] /100 WBCs SERVICES NRBC x10^3 <0.01 10*3/L [facility] GRAN MAT (NEUT) % 65.0 % [facility] IMM GRAN % 0.60 % [facility] LYMPH % 18.6 % [facility] MONO % 12.9 % [facility] EOS % 2.3 % [facility] BASO % 0.6 % [facility] GRAN MAT 2.28 1.99 - 6.95 [facility] x10^3(ANC) 10*3/uL SERVICES IMM GRAN x10^3 <0.03 0.00 - 0.06 [facility] 10*3/uL SERVICES LYMPH x10^3 0.65 (L) 1.09 - 3.23 [facility] 10*3/uL SERVICES MONO x10^3 0.45 0.36 - 1.02 [facility] 10*3/uL SERVICES EOS x10^3 0.08 0.06 - 0.53 [facility] 10*3/uL SERVICES BASO x10^3 <0.03 0.01 - 0.09 [facility] 10*3/uL SERVICES TARGET CELLS 2+ (A) (none) [facility] Specimen Blood - VENOUS Performing Organization Address City/State/Zipcode Phone Number [facility] CLIA: [id number], [address] [place] [phone] [facility] HEPATIC FUNCTION PANEL ([id number]) (ALB,T.PRO,BILI T,BU/BC,ALT,AST,ALK PHOS) (2019 3:28 AM SERVICENOW ADMINISTRATOR) TOTAL BILI 1.6 (H) 0.1 - 1.1 mg/dL [facility] BILI UNCON 0.9 0.1 - 1.1 mg/dL [facility] BILI CONJ 0.0 0.0 - 0.3 mg/dL [facility] T PROTEIN 5.3 (L) 6.3 - 8.2 g/dL [facility] ALBUMIN 2.8 (L) 3.5 - 5.0 g/dL [facility] ALK PHOS 42 34 - 122 U/L [facility] ALTv 39 5 - 50 U/L [facility] AST(SGOT) 81 (H) 13 - 40 U/L [facility] Specimen Blood - VENOUS Performing Organization Address City/State/Zipcode Phone Number [facility] CLIA: [id number], [address] [facility] [address] [facility] BASIC METABOLIC PANEL (NA, K, CL, CO2, GLUCOSE, BUN, CREATININE, CA) (2019 3:28 AM SERVICENOW ADMINISTRATOR) NA 137 135 - 145 [facility] mmol/L SERVICES K 4.3Comment: 3.5 - 5.0 [facility] Slight hemolysis mmol/L SERVICES CL 102 98 - 108 [facility] mmol/L SERVICES CO2 TOTAL 27 23 - 31 [facility] mmol/L SERVICES AGAP 8 2 - 16 [facility] BUN 31 (H)Comment: 7 - 23 mg/dL [facility] Slight hemolysis SERVICES GLUCOSE 184 (H) 70 - 110 [facility] mg/dL SERVICES CREATININE 0.72 0.60 - 1.25 [facility] mg/dL SERVICES CALCIUM 7.3 (L) 8.6 - 10.6 [facility] mg/dL SERVICES eGFR Calculation 112.9 mL/min/1.73m2 [facility] (Non- SERVICES Tanzanian) eGFR Calculation 136.9 mL/min/1.73m2 [facility] () SERVICES Specimen Blood - VENOUS Narrative Performed At Association of Glomerular Filtration Rate (GFR) and Staging [facility] of Kidney Disease* + + + + | GFR (mL/min/1.73 m2) | With Kidney Damage | Without Kidney Damage + + + + | >90 | Stage one | Normal + + + + | 60-89 | Stage two | Decreased GFR + + + + | 30-59 | Stage three | Stage three + + + + | 15-29 | Stage four | Stage four + + + + | <15 (or dialysis) | Stage five | Stage five + + + + *Each stage assumes the associated GFR level has been in effect for at least three months. Stages 1 to 5, with or without kidney disease, indicate chronic kidney disease. Notes: Determination of stages one and two (with eGFR >59mL/min/1.73 m2) requires estimation of kidney damage for at least three months as defined by structural or functional abnormalities of the kidney, manifested by either: Pathological abnormalities or Markers of kidney damage (including abnormalities in the composition of the blood or urine or abnormalities in imaging tests). Performing Organization Address City/State/Zipcode Phone Number [facility] CLIA: [id number], [address] [place] [phone] [facility] PROTHROMBIN TIME / INR (12/01/2019 3:28 AM SERVICENOW ADMINISTRATOR) PROTIME PATIENT 19.9 (H) 10.1 - 12.6 [facility] Seconds SERVICES INR 1.8Comment: Normal [facility] INR <1.1; Warfarin SERVICES Therapeutic range 2.0 to 3.0 or 2.5 to 3.5, depending upon the indications. Specimen Blood - VENOUS Performing Organization Address City/State/Zipcode Phone Number [facility] CLIA: [id number], [address] [place] [address] [facility] Lactic Acid Whole Blood (12/01/2019 2:20 AM SERVICENOW ADMINISTRATOR) Pathologist [facility] [place] LACTIC ACID 1.07 0.50 - 2.20 mmol/L [facility] Specimen Blood - VENOUS Performing Organization Address City/[facility]/Zipcode Phone Number [facility] CLIA: [id number], [address] [place] [address] [facility] MAGNESIUM (11/30/2019 9:20 PM SERVICENOW ADMINISTRATOR) MAGNESIUM 2.0 1.7 - 2.4 mg/dL [facility] Specimen Blood - VENOUS Performing Organization Address City/[facility]/Zipcode Phone Number [facility] CLIA: [id number], [address] [place] [address] [phone] [facility] BASIC METABOLIC PANEL (NA, K, CL, CO2, GLUCOSE, BUN, CREATININE, CA) (2019 9:20 PM SERVICENOW ADMINISTRATOR) NA 136 135 - 145 [facility] mmol/L SERVICES K 4.6Comment: 3.5 - 5.0 [facility] Slight hemolysis mmol/L SERVICES CL 100 98 - 108 [facility] mmol/L SERVICES CO2 TOTAL 30 23 - 31 [facility] mmol/L SERVICES AGAP 6 2 - 16 [facility] BUN 35 (H)Comment: 7 - 23 mg/dL [facility] Slight hemolysis SERVICES GLUCOSE 153 (H) 70 - 110 [facility] mg/dL SERVICES CREATININE 0.81 0.60 - 1.25 [facility] mg/dL SERVICES CALCIUM 8.1 (L) 8.6 - 10.6 [facility] mg/dL SERVICES eGFR Calculation 98.6 mL/min/1.73m2 [facility] (Non- SERVICES Tanzanian) eGFR Calculation 119.5 mL/min/1.73m2 [facility] () SERVICES Specimen Blood - VENOUS Narrative Performed At Association of Glomerular Filtration Rate (GFR) and Staging [facility] of Kidney Disease* + + + + | GFR (mL/min/1.73 m2) | With Kidney Damage | Without Kidney Damage + + + + | >90 | Stage one | Normal + + + + | 60-89 | Stage two | Decreased GFR + + + + | 30-59 | Stage three | Stage three + + + + | 15-29 | Stage four | Stage four + + + + | <15 (or dialysis) | Stage five | Stage five + + + + *Each stage assumes the associated GFR level has been in effect for at least three months. Stages 1 to 5, with or without kidney disease, indicate chronic kidney disease. Notes: Determination of stages one and two (with eGFR >59mL/min/1.73 m2) requires estimation of kidney damage for at least three months as defined by structural or functional abnormalities of the kidney, manifested by either: Pathological abnormalities or Markers of kidney damage (including abnormalities in the composition of the blood or urine or abnormalities in imaging tests). Performing Organization Address City/State/Zipcode Phone Number [facility] CLIA: [id number], [address] [place] [address] [phone] [facility] PROTHROMBIN TIME / INR (11/30/2019 5:42 AM SERVICENOW ADMINISTRATOR) PROTIME PATIENT 17.6 (H) 10.1 - 12.6 [facility] Seconds SERVICES INR 1.6Comment: Normal [facility] INR <1.1; Warfarin SERVICES Therapeutic range 2.0 to 3.0 or 2.5 to 3.5, depending upon the indications. Specimen Blood - VENOUS Performing Organization Address City/State/Zipcode Phone Number [facility] CLIA: [id number], [address] [place] [phone] [facility] TROPONIN I (11/30/2019 5:42 AM SERVICENOW ADMINISTRATOR) TROPONIN I 0.074 (H) <=0.034 ng/mL [facility] Specimen Blood - VENOUS Narrative Performed At Equal or Less than 0.034 ng/ml---Normal [facility] Note: Cardiac troponin begins to rise 3-4 hours after the onset of ischemia. Repeat in 4-6 hours if the sample was drawn within 3-4 hours of the onset of the symptom and found normal. Between 0.035 and 0.120 ng/mL--- Borderline. Questionable myocardial injury or necrosis Note: Serial measurement may be necessary to confirm or exclude the diagnosis of myocardial injury or necrosis; Clinical correlation (symptoms, EKGs, imaging studies, and others) required; Repeat in 4-6 hours if clinically indicated. Equal or Higher than 0.121 ng/mL---Abnormal. Myocardial Injury or Necrosis Likely Biotin has been reported to cause a negative bias, interpret results relative to patient's use of biotin. Performing Organization Address City/[facility] Phone Number [facility] CLIA: [id number], [address] [place] [phone] [facility] ABG+COOX+NA+K+GLU+CA2+ (11/30/2019 3:56 AM SERVICENOW ADMINISTRATOR) PH 7.42 7.35 - 7.45 [facility] PCO2 41 35 - 45 mmHg [facility] PO2 88 80 - 100 mmHg [facility] HCO3 26 22 - 26 mEq/L [facility] BE 1.3 -3.0 - 3.0 mEq/L [facility] THB 10.8 (L) 13.5 - 18.0 g/dL [facility] %O2HB 95.4 94.0 - 99.0 % [facility] %COHB ART 0.5 0.0 - 1.5 % [facility] %METHB ART 0.2 (L) 0.4 - 1.5 % [facility] VOL%O2 ART 14.6 (L) 15.0 - 23.0 % [facility] NA 129 (L) 135 - 145 mmol/L [facility] K+ 3.9 3.5 - 5.0 mmol/L [facility] AC CA IONZ 4.50 4.50 - 5.30 mg/dL [facility] GLUCOSE 206 (H) 70 - 110 mg/dL [facility] Specimen Blood - ARTERIAL Performing Organization Address City/State/Zipcode Phone Number [facility] CLIA: [id number], [address] [place] [address] [phone] [facility] US ABDOMEN LIMITED WITH DOPPLER (11/30/2019 2:43 AM SERVICENOW ADMINISTRATOR) Specimen Impressions Performed At PACS/VR/DOSE Cirrhosis with ascites and splenomegaly. Main portal vein is prominent in keeping with portal hypertension but the main portal vein is patent with mildly sluggish flow. Right pleural effusion. Preliminary Report Dictated by Resident: Marino Livingston I, Warner Gonzalez MD., have reviewed this study and agree with the above report. Narrative Performed At ABDOMINAL ULTRASOUND, LIMITED: PACS/VR/DOSE HISTORY: hx of decompensated liver cirrhosis . COMPARISON: Ultrasound dated 06/14/2019 FINDINGS: The liver is coarsened and nodular measuring 15.4 cm. no sonographically detectable focal lesions are identified within the liver. No intrahepatic biliary dilatation is present. The main portal vein demonstrates normal hepatopetal flow. The main portal vein velocity measures 19.6 cm/s. The gallbladder is not seen. The common bile duct is normal in caliber, measuring 4 mm. The spleen is enlarged measuring 15.8 cm. The pancreas is obscured by the overlying bowel gas. The kidneys are normal in size, contour, and echotexture. The right kidney measures 11.8 x 5.5 x 5.9 cm, and the left kidney measures 11.7 x 6.4 x 6.1 cm. No hydronephrosis is visualized in either kidney. Moderate ascites is appreciated. A right-sided pleural effusion is incidentally noted. Procedure Note [facility] [place], Radiant Results Inft User - 11/30/2019 10:12 AM SERVICENOW ADMINISTRATOR ABDOMINAL ULTRASOUND, LIMITED: HISTORY: hx of decompensated liver cirrhosis . COMPARISON: Ultrasound dated 06/14/2019 FINDINGS: The liver is coarsened and nodular measuring 15.4 cm. no sonographically detectable focal lesions are identified within the liver. No intrahepatic biliary dilatation is present. The main portal vein demonstrates normal hepatopetal flow. The main portal vein velocity measures 19.6 cm/s. The gallbladder is not seen. The common bile duct is normal in caliber, measuring 4 mm. The spleen is enlarged measuring 15.8 cm. The pancreas is obscured by the overlying bowel gas. The kidneys are normal in size, contour, and echotexture. The right kidney measures 11.8 x 5.5 x 5.9 cm, and the left kidney measures 11.7 x 6.4 x 6.1 cm. No hydronephrosis is visualized in either kidney. Moderate ascites is appreciated. A right-sided pleural effusion is incidentally noted. IMPRESSION Cirrhosis with ascites and splenomegaly. Main portal vein is prominent in keeping with portal hypertension but the main portal vein is patent with mildly sluggish flow. Right pleural effusion. Preliminary Report Dictated by Resident: Marino Livingston I, Warner Gonazlez MD., have reviewed this study and agree with the above report. Performing Organization Address City/[facility] Phone Number PACS/VR/DOSE HAPTOGLOBIN, SERUM (11/30/2019 12:58 AM SERVICENOW ADMINISTRATOR) HAPTOGLOB 10 (L) 16 - 200 mg/dL [facility] Specimen Blood - VENOUS Performing Organization Address [facility] [place] [facility] Phone Number [facility] CLIA: [id number], [address] [place] [address] [facility] FERRITIN SERUM (11/30/2019 12:58 AM SERVICENOW ADMINISTRATOR) FERRITIN 58.6 18.0 - 464.0 ng/mL [facility] Specimen Blood - VENOUS Narrative Performed At Biotin has been reported to cause a negative bias, interpret [facility] results relative to patient's use of biotin. Performing Organization Address [facility] Phone Number [facility] CLIA: [id number], [address] [place] [address] [facility] IRON PANEL (11/30/2019 12:58 AM SERVICENOW ADMINISTRATOR) IRON 35 (L) 50 - 160 ug/dL [facility] TIBC 235 (L) 250 - 410 ug/dL [facility] % FE SAT 15 (L) 20 - 50 % [facility] Specimen Blood - VENOUS Performing Organization Address [facility] Phone Number [facility] CLIA: [id number], [address] [place] [phone] [facility] N-TERMINAL PRO-BNP (11/30/2019 12:58 AM SERVICENOW ADMINISTRATOR) NT-proBNP 2,750 (H) <=125 pg/mL [facility] Specimen Blood - VENOUS Narrative Performed At [facility] has been reported to cause a negative bias, interpret [facility] results relative to patient's use of biotin. Performing Organization Address City/State/Zipcode Phone Number [facility] CLIA: [id number], [address] [place] [phone] [facility] HEPATIC FUNCTION PANEL ([id number]) (ALB,T.PRO,BILI T,BU/BC,ALT,AST,ALK PHOS) (2019 12:58 AM SERVICENOW ADMINISTRATOR) TOTAL BILI 1.7 (H) 0.1 - 1.1 mg/dL [facility] BILI UNCON 1.1 0.1 - 1.1 mg/dL [facility] BILI CONJ 0.0 0.0 - 0.3 mg/dL [facility] T PROTEIN 5.5 (L) 6.3 - 8.2 g/dL [facility] ALBUMIN 2.6 (L) 3.5 - 5.0 g/dL [facility] ALK PHOS 53 34 - 122 U/L [facility] ALTv 49 5 - 50 U/L [facility] AST(SGOT) 84 (H) 13 - 40 U/L [facility] Specimen Blood - VENOUS Performing Organization Address City/State/Zipcode Phone Number [facility] CLIA: [id number], [address] [place] [phone] [facility] BASIC METABOLIC PANEL (NA, K, CL, CO2, GLUCOSE, BUN, CREATININE, CA) (2019 12:58 AM SERVICENOW ADMINISTRATOR) NA 134 (L) 135 - 145 [facility] mmol/L SERVICES K 4.0 3.5 - 5.0 [facility] mmol/L SERVICES CL 100 98 - 108 mmol/L [facility] CO2 TOTAL 29 23 - 31 mmol/L [facility] AGAP 5 2 - 16 [facility] BUN 41 (H) 7 - 23 mg/dL [facility] GLUCOSE 135 (H) 70 - 110 mg/dL [facility] CREATININE 1.16 0.60 - 1.25 [facility] mg/dL SERVICES CALCIUM 7.0 (L) 8.6 - 10.6 [facility] mg/dL SERVICES eGFR Calculation 65.1 mL/min/1.73m2 [facility] (Non- SERVICES Tanzanian) eGFR Calculation 78.9 mL/min/1.73m2 [facility] () SERVICES Specimen Blood - VENOUS Narrative Performed At Association of Glomerular Filtration Rate (GFR) and Staging [facility] of Kidney Disease* + + + + | GFR (mL/min/1.73 m2) | With Kidney Damage | Without Kidney Damage + + + + | >90 | Stage one | Normal + + + + | 60-89 | Stage two | Decreased GFR + + + + | 30-59 | Stage three | Stage three + + + + | 15-29 | Stage four | Stage four + + + + | <15 (or dialysis) | Stage five | Stage five + + + + *Each stage assumes the associated GFR level has been in effect for at least three months. Stages 1 to 5, with or without kidney disease, indicate chronic kidney disease. Notes: Determination of stages one and two (with eGFR >59mL/min/1.73 m2) requires estimation of kidney damage for at least three months as defined by structural or functional abnormalities of the kidney, manifested by either: Pathological abnormalities or Markers of kidney damage (including abnormalities in the composition of the blood or urine or abnormalities in imaging tests). Performing Organization Address City/State/Zipcode Phone Number [facility] CLIA: [id number], [address] [place] [address] [facility] TROPONIN I (11/30/2019 12:58 AM SERVICENOW ADMINISTRATOR) TROPONIN I 0.082 (H) <=0.034 ng/mL [facility] Specimen Blood - VENOUS Narrative Performed At Equal or Less than 0.034 ng/ml---Normal [facility] Note: Cardiac troponin begins to rise 3-4 hours after the onset of ischemia. Repeat in 4-6 hours if the sample was drawn within 3-4 hours of the onset of the symptom and found normal. Between 0.035 and 0.120 ng/mL--- Borderline. Questionable myocardial injury or necrosis Note: Serial measurement may be necessary to confirm or exclude the diagnosis of myocardial injury or necrosis; Clinical correlation (symptoms, EKGs, imaging studies, and others) required; Repeat in 4-6 hours if clinically indicated. Equal or Higher than 0.121 ng/mL---Abnormal. Myocardial Injury or Necrosis Likely Biotin has been reported to cause a negative bias, interpret results relative to patient's use of biotin. Performing Organization Address [facility] Phone Number [facility] CLIA: [id number], [address] [place] [address] [facility] MRSA / MSSA Screen by PCR, Nares (11/30/2019 12:58 AM SERVICENOW ADMINISTRATOR) MRSA Screen by PCR, Negative Negative [facility] Nares SERVICES MSSA Screen by PCR, Negative Negative [facility] Nares SERVICES MRSA/MSSA Positive? No No [facility] Specimen Swab - NARES, BOTH SIDES Performing Organization Address [facility] Number [facility] CLIA: [id number], [address] [place] [address] [facility] URINE CULTURE (11/30/2019 12:58 AM SERVICENOW ADMINISTRATOR) Pathologist [facility] [place] URINE CULTURE No aerobic growth [facility] (< 1000 CFU/mL) SERVICES Specimen Urine - URINE, CLEAN CATCH Performing Organization Address [facility] [place] [facility] Phone Number [facility] CLIA: [id number], [address] [place] [address] [facility] OSMOLALITY SERUM (11/30/2019 12:58 AM SERVICENOW ADMINISTRATOR) OSMOLALITY 293 278 - 305 mOsm/kg [facility] [facility] Specimen Blood - VENOUS Performing Organization Address [facility] Number [facility] CLIA: [id number], [address] [place] [address] [facility] Lactic Acid Whole Blood (11/29/2019 4:27 PM SERVICENOW ADMINISTRATOR) Pathologist [facility] [place] LACTIC ACID 1.92 0.50 - 2.20 mmol/L [facility] Specimen Blood - ARM, LEFT Performing Organization Address [facility] Number [facility] CLIA: [id number], [address] [place] [phone] [facility] OSMOLALITY URINE (11/29/2019 2:22 PM SERVICENOW ADMINISTRATOR) OSMO U 391 50-1,100 mOsm/kg [facility] Specimen Urine - URINE, CLEAN CATCH Performing Organization Address [facility] Phone Number [facility] CLIA: [id number], [address] [place], [place] [phone] [facility] UREA NITROGEN, URINE RANDOM (11/29/2019 2:22 PM SERVICENOW ADMINISTRATOR) UREA N UR 443 mg/dL [facility] Specimen Urine - URINE, CLEAN CATCH Performing Organization Address [facility] Phone Number [facility] CLIA: [id number], [address] [place] [address] [phone] [facility] URINALYSIS (11/29/2019 2:22 PM SERVICENOW ADMINISTRATOR) APPEARANCE Hazy (A) Clear [facility] COLOR Betsy (A) Yellow [facility] PH 5.0 4.8 - 8.0 [facility] SP GRAVITY 1.015 1.003 - 1.030 [facility] GLU U QUAL Normal Normal [facility] BLOOD 1+ (A) Negative [facility] KETONES Negative Negative [facility] PROTEIN Negative Negative [facility] UROBILIN Normal Normal [facility] BILIRUBIN Negative Negative [facility] NITRITE Negative Negative [facility] LEUK NELLIE 25/uL (A) Negative [facility] RBC/HPF 8 (H) 0 - 3 HPF [facility] WBC/HPF 7 (H) 0 - 5 HPF [facility] BACTERIA Negative Negative [facility] MUCOUS Slight (A) Negative LPF [facility] SQ EPITH 1 <=2 HPF [facility] HYAL CAST 21 (H) <=2 LPF [facility] Specimen Urine - URINE, CLEAN CATCH Performing Organization Address [facility] Phone Number [facility] CLIA: [id number], [address] [place], [place] [address] [phone] [facility] CREATININE, URINE RANDOM (11/29/2019 2:22 PM SERVICENOW ADMINISTRATOR) CREAT U 233.4 mg/dL [facility] Specimen Urine - URINE, CLEAN CATCH Performing Organization Address [facility] Phone Number [facility] CLIA: [id number], [address] [place], [place] [id number] [phone] [facility] CHLORIDE, URINE RANDOM (11/29/2019 2:22 PM SERVICENOW ADMINISTRATOR) CL URINE <15 (L) 30 - 260 mmol/L [facility] Specimen Urine - URINE, CLEAN CATCH Performing Organization Address [facility]/Zipcode Phone Number [facility] CLIA: [id number], [address] [place] [phone] [facility] SODIUM, URINE RANDOM (11/29/2019 2:22 PM SERVICENOW ADMINISTRATOR) NA URINE 20 mmol/L [facility] Specimen Urine - URINE, CLEAN CATCH Performing Organization Address [facility] Phone Number [facility] CLIA: [id number], [address] [place] [phone] [facility] GLYCOSYLATED HEMOGLOBIN (A1C) (11/29/2019 6:29 AM SERVICENOW ADMINISTRATOR) HGB A1C 6.2 (H) 4.0 - 6.0 % [facility] Specimen Blood - ARM, LEFT Performing Organization Address [facility] Phone Number [facility] CLIA: [id number], [address] [place] [phone] [facility] CBC WITH DIFFERENTIAL (11/29/2019 6:29 AM SERVICENOW ADMINISTRATOR) WBC 9.13 4.20 - 10.70 [facility] 10*3/L SERVICES RBC 3.51 (L) 4.26 - 5.52 [facility] 10*6/L SERVICES HGB 10.9 (L) 12.2 - 16.4 [facility] g/dL SERVICES HCT 31.7 (L) 38.4 - 49.3 % [facility] MCV 90.3 81.7 - 95.6 fL [facility] MCH 31.1 26.1 - 32.7 pg [facility] MCHC 34.4 31.2 - 35.0 [facility] g/dL SERVICES RDW-SD 54.9 (H) 38.5 - 51.6 fL [facility] RDW-CV 17.0 (H) 12.1 - 15.4 % [facility] PLT 103 (L) 150 - 328 [facility] 10*3/L SERVICES MPV 12.9 9.8 - 13.0 fL [facility] NRBC/100 WBC 0.0 0.0 - 10.0 /100 [facility] WBCs SERVICES NRBC x10^3 <0.01 10*3/L [facility] GRAN MAT (NEUT) % 77.4 % [facility] IMM GRAN % 0.30 % [facility] LYMPH % 7.7 % [facility] MONO % 12.0 % [facility] EOS % 2.2 % [facility] BASO % 0.4 % [facility] GRAN MAT x10^3(ANC) 7.06 (H) 1.99 - 6.95 [facility] 10*3/uL SERVICES IMM GRAN x10^3 0.03 0.00 - 0.06 [facility] 10*3/uL SERVICES LYMPH x10^3 0.70 (L) 1.09 - 3.23 [facility] 10*3/uL SERVICES MONO x10^3 1.10 (H) 0.36 - 1.02 [facility] 10*3/uL SERVICES EOS x10^3 0.20 0.06 - 0.53 [facility] 10*3/uL SERVICES BASO x10^3 0.04 0.01 - 0.09 [facility] 10*3/uL SERVICES Specimen Blood - ARM, LEFT Performing Organization Address City/State/Zipcode Phone Number [facility] CLIA: [id number], [address] [place] [phone] [facility] LIPID PANEL ([id number])(TOTAL CHOLESTEROL, TRIGLYCERIDES, HDL) (11/29/2019 5:15 AM SERVICENOW ADMINISTRATOR) CHOL 70 (L) 120 - 200 mg/dL [facility] HDL 14 (L) >40 mg/dL [facility] HDLC RATIO 5.0 <=5.0 [facility] TRIG 60 30 - 170 mg/dL [facility] LDL CHOL 44 <=160 mg/dL [facility] VLDL 12 5 - 60 mg/dL [facility] Specimen Blood - ARM, LEFT Performing Organization Address City/State/Zipcode Phone Number [facility] CLIA: [id number], [address] [place] [phone] [facility] THYROID STIMULATING HORMONE (11/29/2019 5:15 AM SERVICENOW ADMINISTRATOR) TSH 8.84 (H)Comment: 0.45 - 4.70 [facility] Biotin has been mIU/L SERVICES reported to cause a negative bias, interpret results relative to patient's use of biotin. Specimen Blood - ARM, LEFT Performing Organization Address [facility] Phone Number [facility] CLIA: [id number], [address] [place] [phone] [facility] HEPATIC FUNCTION PANEL ([id number]) (ALB,T.PRO,BILI T,BU/BC,ALT,AST,ALK PHOS) (2019 5:15 AM SERVICENOW ADMINISTRATOR) TOTAL BILI 1.6 (H) 0.1 - 1.1 mg/dL [facility] BILI UNCON 1.1 0.1 - 1.1 mg/dL [facility] BILI CONJ 0.0 0.0 - 0.3 mg/dL [facility] T PROTEIN 5.8 (L) 6.3 - 8.2 g/dL [facility] ALBUMIN 2.5 (L) 3.5 - 5.0 g/dL [facility] ALK PHOS 86 34 - 122 U/L [facility] ALTv 65 (H) 5 - 50 U/L [facility] AST(SGOT) 110 (H) 13 - 40 U/L [facility] Specimen Blood - ARM, LEFT Performing Organization Address [facility] Phone Number [facility] CLIA: [id number], [address] [place] [phone] [facility] BASIC METABOLIC PANEL (NA, K, CL, CO2, GLUCOSE, BUN, CREATININE, CA) (2019 5:15 AM SERVICENOW ADMINISTRATOR) NA 130 (L) 135 - 145 [facility] mmol/L SERVICES K 4.6 3.5 - 5.0 [facility] mmol/L SERVICES CL 94 (L) 98 - 108 mmol/L [facility] CO2 TOTAL 30 23 - 31 mmol/L [facility] AGAP 6 2 - 16 [facility] BUN 46 (H) 7 - 23 mg/dL [facility] GLUCOSE 186 (H) 70 - 110 mg/dL [facility] CREATININE 1.75 (H) 0.60 - 1.25 [facility] mg/dL SERVICES CALCIUM 7.8 (L) 8.6 - 10.6 [facility] mg/dL SERVICES eGFR Calculation 40.5 mL/min/1.73m2 [facility] (Non- SERVICES Tanzanian) eGFR Calculation 49.1 mL/min/1.73m2 [facility] () SERVICES Specimen Blood - ARM, LEFT Narrative Performed At Association of Glomerular Filtration Rate (GFR) and Staging [facility] of Kidney Disease* + + + + | GFR (mL/min/1.73 m2) | With Kidney Damage | Without Kidney Damage + + + + | >90 | Stage one | Normal + + + + | 60-89 | Stage two | Decreased GFR + + + + | 30-59 | Stage three | Stage three + + + + | 15-29 | Stage four | Stage four + + + + | <15 (or dialysis) | Stage five | Stage five + + + + *Each stage assumes the associated GFR level has been in effect for at least three months. Stages 1 to 5, with or without kidney disease, indicate chronic kidney disease. Notes: Determination of stages one and two (with eGFR >59mL/min/1.73 m2) requires estimation of kidney damage for at least three months as defined by structural or functional abnormalities of the kidney, manifested by either: Pathological abnormalities or Markers of kidney damage (including abnormalities in the composition of the blood or urine or abnormalities in imaging tests). Performing Organization Address City/State/Zipcode Phone Number [facility] CLIA: [id number], [address] [place] [address] [phone] [facility] CBC WITH DIFFERENTIAL (11/28/2019 3:54 PM SERVICENOW ADMINISTRATOR) WBC 9.10 4.20 - 10.70 [facility] 10*3/L SERVICES RBC 3.34 (L) 4.26 - 5.52 [facility] 10*6/L SERVICES HGB 10.3 (L) 12.2 - 16.4 [facility] g/dL SERVICES HCT 30.2 (L) 38.4 - 49.3 % [facility] MCV 90.4 81.7 - 95.6 [facility] fL SERVICES MCH 30.8 26.1 - 32.7 [facility] pg SERVICES MCHC 34.1 31.2 - 35.0 [facility] g/dL SERVICES RDW-SD 53.6 (H) 38.5 - 51.6 [facility] fL SERVICES RDW-CV 16.6 (H) 12.1 - 15.4 % [facility] SERVICES PLT 93 (L) 150 - 328 [facility] 10*3/L SERVICES MPV 13.3 (H) 9.8 - 13.0 fL [facility] SERVICES IPF % 10.1Comment: 1.2 - 10.7 % [facility] Platelet count SERVICES measured by fluorescence method. NRBC/100 WBC 0.0 0.0 - 10.0 [facility] /100 WBCs SERVICES NRBC x10^3 <0.01 10*3/L [facility] SERVICES GRAN MAT (NEUT) % 71.8 % [facility] IMM GRAN % 0.30 % [facility] LYMPH % 13.7 % [facility] MONO % 11.9 % [facility] EOS % 1.9 % [facility] BASO % 0.4 % [facility] GRAN MAT 6.53 1.99 - 6.95 [facility] x10^3(ANC) 10*3/uL SERVICES IMM GRAN x10^3 0.03 0.00 - 0.06 [facility] 10*3/uL SERVICES LYMPH x10^3 1.25 1.09 - 3.23 [facility] 10*3/uL SERVICES MONO x10^3 1.08 (H) 0.36 - 1.02 [facility] 10*3/uL SERVICES EOS x10^3 0.17 0.06 - 0.53 [facility] 10*3/uL SERVICES BASO x10^3 0.04 0.01 - 0.09 [facility] 10*3/uL SERVICES Specimen Blood - ARM, LEFT Performing Organization Address City/State/Zipcode Phone Number [facility] CLIA: [id number], [address] [place] [address] [phone] [facility] HEPATIC FUNCTION PANEL ([id number]) (ALB,T.PRO,BILI T,BU/BC,ALT,AST,ALK PHOS) (2019 3:54 PM SERVICENOW ADMINISTRATOR) TOTAL BILI 2.1 (H) 0.1 - 1.1 mg/dL [facility] BILI UNCON 1.2 (H) 0.1 - 1.1 mg/dL [facility] BILI CONJ 0.0 0.0 - 0.3 mg/dL [facility] T PROTEIN 5.6 (L) 6.3 - 8.2 g/dL [facility] SERVICES ALBUMIN 2.4 (L) 3.5 - 5.0 g/dL [facility] SERVICES ALK PHOS 69Comment: Slight 34 - 122 U/L [facility] hemolysis SERVICES ALTv 61 (H) 5 - 50 U/L [facility] SERVICES AST(SGOT) 129 (H)Comment: 13 - 40 U/L [facility] Slight hemolysis SERVICES Specimen Blood - ARM, LEFT Performing Organization Address City/State/Zipcode Phone Number [facility] CLIA: [id number], [address] [place] [address] [phone] [facility] BASIC METABOLIC PANEL (NA, K, CL, CO2, GLUCOSE, BUN, CREATININE, CA) (2019 3:54 PM SERVICENOW ADMINISTRATOR) NA 130 (L) 135 - 145 [facility] mmol/L SERVICES K 5.0Comment: 3.5 - 5.0 [facility] Slight hemolysis mmol/L SERVICES CL 93 (L) 98 - 108 [facility] mmol/L SERVICES CO2 TOTAL 33 (H) 23 - 31 [facility] mmol/L SERVICES AGAP 4 2 - 16 [facility] SERVICES BUN 41 (H)Comment: 7 - 23 mg/dL [facility] Slight hemolysis SERVICES GLUCOSE 116 (H) 70 - 110 [facility] mg/dL SERVICES CREATININE 1.58 (H) 0.60 - 1.25 [facility] mg/dL SERVICES CALCIUM 7.8 (L) 8.6 - 10.6 [facility] mg/dL SERVICES eGFR Calculation 45.6 mL/min/1.73m2 [facility] (Non- SERVICES Tanzanian) eGFR Calculation 55.3 mL/min/1.73m2 [facility] () SERVICES Specimen Blood - ARM, LEFT Narrative Performed At Association of Glomerular Filtration Rate (GFR) and Staging [facility] SERVICES of Kidney Disease* + + + + | GFR (mL/min/1.73 m2) | With Kidney Damage | Without Kidney Damage + + + + | >90 | Stage one | Normal + + + + | 60-89 | Stage two | Decreased GFR + + + + | 30-59 | Stage three | Stage three + + + + | 15-29 | Stage four | Stage four + + + + | <15 (or dialysis) | Stage five | Stage five + + + + *Each stage assumes the associated GFR level has been in effect for at least three months. Stages 1 to 5, with or without kidney disease, indicate chronic kidney disease. Notes: Determination of stages one and two (with eGFR >59mL/min/1.73 m2) requires estimation of kidney damage for at least three months as defined by structural or functional abnormalities of the kidney, manifested by either: Pathological abnormalities or Markers of kidney damage (including abnormalities in the composition of the blood or urine or abnormalities in imaging tests). Performing Organization Address City/[facility] Phone Number [facility] CLIA: [id number], [address] [place] [phone] [facility] MAGNESIUM (11/28/2019 3:54 PM SERVICENOW ADMINISTRATOR) MAGNESIUM 2.2Comment: Slight 1.7 - 2.4 mg/dL [facility] hemolysis SERVICES Specimen Blood - ARM, LEFT Performing Organization Address City/[facility]/Zipcode Phone Number [facility] CLIA: [id number], [address] [place] [address] [phone] [facility] DIGOXIN (11/28/2019 3:54 PM SERVICENOW ADMINISTRATOR) DIGOXIN 1.2Comment: Slight 0.8 - 1.6 ng/mL [facility] hemolysis SERVICES Specimen Blood - ARM, LEFT Narrative Performed At Arrythmias: 1.5 - 2.0 ng/mL [facility] Toxic Range: Greater than or equal to 2.4 ng/mL Performing Organization Address [facility] Phone Number [facility] CLIA: [id number], [address] [place] [address] [phone] [facility] XR CHEST 1 VW (11/28/2019 3:20 PM SERVICENOW ADMINISTRATOR) Specimen Impressions Performed At PACS/VR/DOSE Stable right pleural effusion. Cardiomegaly with worsening interstitial edema. Preliminary Report Dictated by Resident: Jose David Mercedes, MD., have reviewed this study and agree with the above report. Narrative Performed At EXAM: XR CHEST 1 VW PACS/VR/DOSE CLINICAL INDICATION: SOB, history of CHF and COPD COMPARISON: 11/26/2019 FINDINGS: Right moderate-volume pleural effusion silhouettes the right hemidiaphragm, unchanged in size from prior radiograph. Bilateral interstitial pulmonary edema is slightly increased from prior. No pneumothorax. The cardiac silhouette is enlarged. No acute osseous abnormality. Procedure Note [facility], [place], Radiant Results Inft User - 11/29/2019 12:29 PM SERVICENOW ADMINISTRATOR EXAM: XR CHEST 1 VW CLINICAL INDICATION: SOB, history of CHF and COPD COMPARISON: 11/26/2019 FINDINGS: Right moderate-volume pleural effusion silhouettes the right hemidiaphragm, unchanged in size from prior radiograph. Bilateral interstitial pulmonary edema is slightly increased from prior. No pneumothorax. The cardiac silhouette is enlarged. No acute osseous abnormality. IMPRESSION Stable right pleural effusion. Cardiomegaly with worsening interstitial edema. Preliminary Report Dictated by Resident: Jose David Mercedes MD., have reviewed this study and agree with the above report. Performing Organization Address City/State/Zipcode Phone Number PACS/VR/DOSE AC ABG + LACTIC ACID (11/27/2019 12:24 PM SERVICENOW ADMINISTRATOR) PH 7.58 (H) 7.35 - 7.45 [facility] PCO2 30 (L) 35 - 45 mmHg [facility] PO2 193 (H) 80 - 100 mmHg [facility] HCO3 28 (H) 22 - 26 mEq/L [facility] SERVICES BE 5.9 (H) -3.0 - 3.0 mEq/L [facility] SERVICES LACTIC ACID 1.70 0.50 - 2.20 mmol/L [facility] SERVICES Specimen Blood - ARTERIAL Performing Organization Address City/State/Zipcode Phone Number [facility] CLIA: [id number], [address] [place] [address] [phone] [facility] BLOOD CULTURE SCREEN (11/27/2019 12:23 PM SERVICENOW ADMINISTRATOR) Blood No organisms isolated No growth [facility] Culture-Aerobic Comment: SERVICES Previous preliminary verified result was Culture In Progress on 11/27/2019 at 1601 SERVICENOW ADMINISTRATOR Previous preliminary verified result was No growth at 24 hours on 11/28/2019 at 1301 SERVICENOW ADMINISTRATOR Previous preliminary verified result was No growth at 48 hours on 11/29/2019 at 1301 SERVICENOW ADMINISTRATOR Previous preliminary verified result was No growth at 72 hours on 11/30/2019 at 1301 SERVICENOW ADMINISTRATOR Blood No organisms isolated No growth [facility] Culture-Anaerobic Comment: SERVICES Previous preliminary verified result was Culture In Progress on 11/27/2019 at 1601 SERVICENOW ADMINISTRATOR Previous preliminary verified result was No growth at 24 hours on 11/28/2019 at 1301 SERVICENOW ADMINISTRATOR Previous preliminary verified result was No growth at 48 hours on 11/29/2019 at 1301 SERVICENOW ADMINISTRATOR Previous preliminary verified result was No growth at 72 hours on 11/30/2019 at 1301 SERVICENOW ADMINISTRATOR Specimen Blood - ARM, LEFT Performing Organization Address City/[facility] Phone Number [facility] CLIA: [id number], [address] [place] [address] [phone] [facility] PROTHROMBIN TIME / INR (11/27/2019 12:14 PM SERVICENOW ADMINISTRATOR) [facility] PROTIME PATIENT 16.3 (H) 10.1 - 12.6 [facility] Seconds SERVICES INR 1.5Comment: Normal [facility] INR <1.1; Warfarin SERVICES Therapeutic range 2.0 to 3.0 or 2.5 to 3.5, depending upon the indications. Specimen Blood - ARM, RIGHT Performing Organization Address [facility] Phone Number [facility] CLIA: [id number], [address] [place] [address] [phone] [facility] BLOOD CULTURE SCREEN (11/27/2019 12:14 PM SERVICENOW ADMINISTRATOR) [facility] Blood No organisms isolated No growth [facility] Culture-Aerobic Comment: SERVICES Previous preliminary verified result was Culture In Progress on 11/27/2019 at 1601 SERVICENOW ADMINISTRATOR Previous preliminary verified result was No growth at 24 hours on 11/28/2019 at 1301 SERVICENOW ADMINISTRATOR Previous preliminary verified result was No growth at 48 hours on 11/29/2019 at 1301 SERVICENOW ADMINISTRATOR Previous preliminary verified result was No growth at 72 hours on 11/30/2019 at 1301 SERVICENOW ADMINISTRATOR Blood No organisms isolated No growth [facility] Culture-Anaerobic Comment: SERVICES Previous preliminary verified result was Culture In Progress on 11/27/2019 at 1601 SERVICENOW ADMINISTRATOR Previous preliminary verified result was No growth at 24 hours on 11/28/2019 at 1301 SERVICENOW ADMINISTRATOR Previous preliminary verified result was No growth at 48 hours on 11/29/2019 at 1301 SERVICENOW ADMINISTRATOR Previous preliminary verified result was No growth at 72 hours on 11/30/2019 at 1301 SERVICENOW ADMINISTRATOR Specimen Blood - ARM, LEFT Performing Organization Address [facility] Phone Number [facility] CLIA: [id number], [address] [place] [address] [phone] [facility] TROPONIN I (11/27/2019 2:27 AM SERVICENOW ADMINISTRATOR) TROPONIN I 0.099 (H) <=0.034 ng/mL [facility] Specimen Blood - ARM, RIGHT Narrative Performed At Equal or Less than 0.034 ng/ml---Normal [facility] Note: Cardiac troponin begins to rise 3-4 hours after the onset of ischemia. Repeat in 4-6 hours if the sample was drawn within 3-4 hours of the onset of the symptom and found normal. Between 0.035 and 0.120 ng/mL--- Borderline. Questionable myocardial injury or necrosis Note: Serial measurement may be necessary to confirm or exclude the diagnosis of myocardial injury or necrosis; Clinical correlation (symptoms, EKGs, imaging studies, and others) required; Repeat in 4-6 hours if clinically indicated. Equal or Higher than 0.121 ng/mL---Abnormal. Myocardial Injury or Necrosis Likely Biotin has been reported to cause a negative bias, interpret results relative to patient's use of biotin. Performing Organization Address [facility] Phone Number [facility] CLIA: [id number], [address] [place] [address] [phone] [facility] EXTRA TUBE LT. BLUE (11/27/2019 2:27 AM SERVICENOW ADMINISTRATOR) Specimen Blood Performing Organization Address [facility] Phone Number [facility] CLIA: [id number], [address] [place] [address] [phone] [facility] CBC WITH DIFFERENTIAL (11/27/2019 2:27 AM SERVICENOW ADMINISTRATOR) WBC 6.77 4.20 - 10.70 [facility] 10*3/L SERVICES RBC 3.33 (L) 4.26 - 5.52 [facility] 10*6/L SERVICES HGB 10.0 (L) 12.2 - 16.4 [facility] g/dL SERVICES HCT 29.2 (L) 38.4 - 49.3 % [facility] MCV 87.7 81.7 - 95.6 [facility] fL SERVICES MCH 30.0 26.1 - 32.7 [facility] pg SERVICES MCHC 34.2 31.2 - 35.0 [facility] g/dL SERVICES RDW-SD 50.9 38.5 - 51.6 [facility] fL SERVICES RDW-CV 16.7 (H) 12.1 - 15.4 % [facility] PLT 82 (L) 150 - 328 [facility] 10*3/L SERVICES MPV 12.3 9.8 - 13.0 fL [facility] IPF % 6.5Comment: Platelet 1.2 - 10.7 % [facility] count measured by SERVICES fluorescence method. NRBC/100 WBC 0.0 0.0 - 10.0 [facility] /100 WBCs SERVICES NRBC x10^3 <0.01 10*3/L [facility] GRAN MAT (NEUT) % 64.2 % [facility] IMM GRAN % 0.40 % [facility] LYMPH % 18.9 % [facility] MONO % 14.0 % [facility] EOS % 2.1 % [facility] BASO % 0.4 % [facility] GRAN MAT 4.34 1.99 - 6.95 [facility] x10^3(ANC) 10*3/uL SERVICES IMM GRAN x10^3 0.03 0.00 - 0.06 [facility] 10*3/uL SERVICES LYMPH x10^3 1.28 1.09 - 3.23 [facility] 10*3/uL SERVICES MONO x10^3 0.95 0.36 - 1.02 [facility] 10*3/uL SERVICES EOS x10^3 0.14 0.06 - 0.53 [facility] 10*3/uL SERVICES BASO x10^3 0.03 0.01 - 0.09 [facility] 10*3/uL SERVICES Specimen Blood - ARM, RIGHT Performing Organization Address City/State/Zipcode Phone Number [facility] CLIA: [id number], [address] [place] [address] [facility] HEPATIC FUNCTION PANEL ([id number]) (ALB,T.PRO,BILI T,BU/BC,ALT,AST,ALK PHOS) (2019 2:27 AM SERVICENOW ADMINISTRATOR) TOTAL BILI 2.6 (H) 0.1 - 1.1 mg/dL [facility] BILI UNCON 1.9 (H) 0.1 - 1.1 mg/dL [facility] BILI CONJ 0.0 0.0 - 0.3 mg/dL [facility] T PROTEIN 5.8 (L) 6.3 - 8.2 g/dL [facility] ALBUMIN 2.6 (L) 3.5 - 5.0 g/dL [facility] ALK PHOS 67 34 - 122 U/L [facility] ALTv 54 (H) 5 - 50 U/L [facility] AST(SGOT) 99 (H) 13 - 40 U/L [facility] Specimen Blood - ARM, RIGHT Performing Organization Address City/State/Zipcode Phone Number [facility] CLIA: [id number], [address] [place] [address] [phone] [facility] BASIC METABOLIC PANEL (NA, K, CL, CO2, GLUCOSE, BUN, CREATININE, CA) (2019 2:27 AM SERVICENOW ADMINISTRATOR) NA 133 (L) 135 - 145 [facility] mmol/L SERVICES K 3.7 3.5 - 5.0 [facility] mmol/L SERVICES CL 98 98 - 108 mmol/L [facility] CO2 TOTAL 28 23 - 31 mmol/L [facility] AGAP 7 2 - 16 [facility] BUN 27 (H) 7 - 23 mg/dL [facility] GLUCOSE 126 (H) 70 - 110 mg/dL [facility] CREATININE 0.75 0.60 - 1.25 [facility] mg/dL SERVICES CALCIUM 7.4 (L) 8.6 - 10.6 [facility] mg/dL SERVICES eGFR Calculation 107.7 mL/min/1.73m2 [facility] (Non- SERVICES Tanzanian) eGFR Calculation 130.6 mL/min/1.73m2 [facility] () SERVICES Specimen Blood - ARM, RIGHT Narrative Performed At Association of Glomerular Filtration Rate (GFR) and Staging [facility] of Kidney Disease* + + + + | GFR (mL/min/1.73 m2) | With Kidney Damage | Without Kidney Damage + + + + | >90 | Stage one | Normal + + + + | 60-89 | Stage two | Decreased GFR + + + + | 30-59 | Stage three | Stage three + + + + | 15-29 | Stage four | Stage four + + + + | <15 (or dialysis) | Stage five | Stage five + + + + *Each stage assumes the associated GFR level has been in effect for at least three months. Stages 1 to 5, with or without kidney disease, indicate chronic kidney disease. Notes: Determination of stages one and two (with eGFR >59mL/min/1.73 m2) requires estimation of kidney damage for at least three months as defined by structural or functional abnormalities of the kidney, manifested by either: Pathological abnormalities or Markers of kidney damage (including abnormalities in the composition of the blood or urine or abnormalities in imaging tests). Performing Organization Address City/State/Zipcode Phone Number [facility] CLIA: [id number], [address], [place] [phone] XR CHEST 1 VW (11/26/2019 5:13 PM SERVICENOW ADMINISTRATOR) Specimen Impressions Performed At Findings and impression: Interval development of at least moderate right PACS/VR/DOSE pleural effusion with associated atelectasis. Mild interstitial pulmonary edema is seen bilaterally. No pneumothorax. Heart remains enlarged. Findings may represent heart failure. Correlate with BNP. Ovoid density projecting over the left hemidiaphragm may be artifactual due to superimposition of structures. No pneumothorax. Small metallic fragment projecting over the heart, unchanged. No aggressive osseous abnormality within bounds of single AP image. Narrative Performed At PORTABLE CHEST RADIOGRAPH PACS/VR/DOSE History: SOB, hx of CHF and COPD Comparison: 2019 TECHNIQUE: AP view of the chest. Procedure Note [facility], [place], Radiant Results Inft User - 11/27/2019 12:26 AM SERVICENOW ADMINISTRATOR PORTABLE CHEST RADIOGRAPH History: SOB, hx of CHF and COPD Comparison: 2019 TECHNIQUE: AP view of the chest. IMPRESSION Findings and impression: Interval development of at least moderate right pleural effusion with associated atelectasis. Mild interstitial pulmonary edema is seen bilaterally. No pneumothorax. Heart remains enlarged. Findings may represent heart failure. Correlate with BNP. Ovoid density projecting over the left hemidiaphragm may be artifactual due to superimposition of structures. No pneumothorax. Small metallic fragment projecting over the heart, unchanged. No aggressive osseous abnormality within bounds of single AP image. Performing Organization Address City/State/Zipcode Phone Number PACS/VR/DOSE BODY FLUID (BACTEC BOTTLE) (11/26/2019 2:15 PM SERVICENOW ADMINISTRATOR) Pathologist [facility] [place] Body Fluid Culture No organisms isolated No growth [facility] Screen-Aerobic Comment: SERVICES Previous preliminary verified result was Culture In Progress on 11/26/2019 at 2001 SERVICENOW ADMINISTRATOR Previous preliminary verified result was No growth at 24 hours on 11/27/2019 at 1701 SERVICENOW ADMINISTRATOR Previous preliminary verified result was No growth at 48 hours on 11/28/2019 at 1701 SERVICENOW ADMINISTRATOR Previous preliminary verified result was No growth at 72 hours on 11/29/2019 at 1701 SERVICENOW ADMINISTRATOR Previous preliminary verified result was No growth at 4 days on 11/30/2019 at 1701 SERVICENOW ADMINISTRATOR Body Fluid Culture No organisms isolated No growth [facility] Screen-Anaerobic Comment: SERVICES Previous preliminary verified result was Culture In Progress on 11/26/2019 at 2001 SERVICENOW ADMINISTRATOR Previous preliminary verified result was No growth at 24 hours on 11/27/2019 at 1701 SERVICENOW ADMINISTRATOR Previous preliminary verified result was No growth at 48 hours on 11/28/2019 at 1701 SERVICENOW ADMINISTRATOR Previous preliminary verified result was No growth at 72 hours on 11/29/2019 at 1701 SERVICENOW ADMINISTRATOR Previous preliminary verified result was No growth at 4 days on 11/30/2019 at 1701 SERVICENOW ADMINISTRATOR Specimen Fluid - ABDOMEN Performing Organization Address City/[facility] Phone Number [facility] CLIA: [id number], [address] [place] [address] [facility] BODY FLUID MANUAL DIFF (11/26/2019 2:15 PM SERVICENOW ADMINISTRATOR) BF SEGS 1 % [facility] BF LYMPHS 58 % [facility] MACROPHAGE 25 % [facility] MESOS 16Comment: Reactive % [facility] mesothelial cells SERVICES observed. #CELS CNTD 100 [facility] Specimen Fluid - ASCITES Performing Organization Address City/[facility]/Zipcode Phone Number [facility] CLIA: [id number], [address] [place] [address] [phone] [facility] LDH TOTAL BODY FLUID (11/26/2019 2:15 PM SERVICENOW ADMINISTRATOR) LDH BF 155 U/L [facility] UNSPUN BODY FLUID Light Yellow [facility] COLOR SERVICES UNSPUN BODY FLUID Cloudy [facility] CLARITY SERVICES SPUN BODY FLUID Light Yellow [facility] COLOR SERVICES SPUN BODY FLUID Slightly Cloudy [facility] CLARITY SERVICES Sediment The sediment [facility] volume is <0.1 SERVICES mLs of the total fluid volume of 3 mls and its color is red. Specimen Fluid - ASCITES Narrative Performed At Test developed and characteristics determined by [facility] Laboratory Services. Performing Organization Address City/State/Zipcode Phone Number [facility] CLIA: [id number], [address] [place] [phone] [facility] BODY FLUID DIRECT COUNT (11/26/2019 2:15 PM SERVICENOW ADMINISTRATOR) BF COLOR Light Yellow [facility] TURBIDITY Slightly Turbid [facility] BF WBC Count 107 /L [facility] BF RBC Count <3000 /L [facility] Specimen Fluid - ASCITES Narrative Performed At The reference range and other method performance [facility] specifications have not been established for this body fluid. The test results must be integrated into the clinical context for interpretation. Performing Organization Address City/State/Zipcode Phone Number [facility] CLIA: [id number], [address] [place] [phone] [facility] T.PROTEIN BODY FLUID (11/26/2019 2:15 PM SERVICENOW ADMINISTRATOR) T.PROT BF 708.0 mg/dL [facility] UNSPUN BODY FLUID Light Yellow [facility] COLOR SERVICES UNSPUN BODY FLUID Cloudy [facility] CLARITY SERVICES SPUN BODY FLUID Light Yellow [facility] COLOR SERVICES SPUN BODY FLUID Slightly Cloudy [facility] CLARITY SERVICES Sediment The sediment [facility] volume is <0.1 SERVICES mLs of the total fluid volume of 3 mls and its color is red. Specimen Fluid - ASCITES Narrative Performed At Test developed and characteristics determined by [facility] Laboratory Services. Performing Organization Address City/State/Zipcode Phone Number [facility] CLIA: [id number], [address] [place] [address] [phone] [facility] GLUCOSE BODY FLUID (11/26/2019 2:15 PM SERVICENOW ADMINISTRATOR) GLUCOSE BF 202 mg/dL [facility] UNSPUN BODY FLUID Light Yellow [facility] COLOR SERVICES UNSPUN BODY FLUID Cloudy [facility] CLARITY SERVICES SPUN BODY FLUID Light Yellow [facility] COLOR SERVICES SPUN BODY FLUID Slightly Cloudy [facility] CLARITY SERVICES Sediment The sediment [facility] volume is <0.1 SERVICES mLs of the total fluid volume of 3 mls and its color is red. Specimen Fluid - ASCITES Narrative Performed At Test developed and characteristics determined by [facility] Laboratory Services. Performing Organization Address City/State/Zipcode Phone Number [facility] CLIA: [id number], [address] [place] [address] [phone] [facility] ALBUMIN BODY FLUID (11/26/2019 2:15 PM SERVICENOW ADMINISTRATOR) ALBUMIN BF 202.0 mg/dL [facility] Specimen Fluid - ASCITES Narrative Performed At Result interpreted relative to the serum concentration. [facility] Performing Organization Address City/[facility]/Zipcode Phone Number [facility] CLIA: [id number], [address] [place] [phone] [facility] ETHANOL (11/26/2019 9:11 AM SERVICENOW ADMINISTRATOR) ALCOHOL <10 mg/dL [facility] Specimen Blood - ARM, RIGHT Narrative Performed At Toxic Greater than or equal to 80 mg/dL. [facility] NOTE: Whole blood values are approximately 10% to 15% lower than serum and plasma. Performing Organization Address City/State/Zipcode Phone Number [facility] CLIA: [id number], [address] [place] [phone] [facility] N-TERMINAL PRO-BNP (11/26/2019 9:11 AM SERVICENOW ADMINISTRATOR) NT-proBNP 5,050 (H) <=125 pg/mL [facility] Specimen Blood - ARM, RIGHT Narrative Performed At Biotin has been reported to cause a negative bias, interpret [facility] results relative to patient's use of biotin. Performing Organization Address City/State/Zipcode Phone Number [facility] CLIA: [id number], [address] [place] [phone] [facility] URINE DRUG (LCMSMS) - OPIATES PANEL (11/26/2019 9:11 AM SERVICENOW ADMINISTRATOR) Morphine-Interpretati Negative Negative [facility] on SERVICES Codeine-Interpretatio Negative Negative [facility] n SERVICES Hydrocodon-LCMS 377 (H) <50 ng/mL [facility] Hydrocodon-Creatinine 346 ng/mg [facility] Normalized SERVICES Hydrocodon-Interpreta Positive (A) Negative [facility] tion SERVICES Hydromorph-LCMS 440 (H) <50 ng/mL [facility] Hydromorp-Creatinine 403 ng/mg [facility] Normalized SERVICES Hydromorph-Interpreta Positive (A) Negative [facility] tion SERVICES Norhydrocod-LCMS 303 (H) <50 ng/mL [facility] Norhydrocod-Creatinin 278 ng/mg [facility] e Normalized SERVICES Norhydrocod-Interpret Positive (A) Negative [facility] ation SERVICES Oxycodone-Interpretat Negative Negative [facility] ion SERVICES Oxymorph-Interpretati Negative Negative [facility] on SERVICES Noroxycod-Interpretat Negative Negative [facility] ion SERVICES 6-MAURI(Heroin)-Interpr Negative Negative [facility] etation SERVICES CREAT U 109.1 mg/dL [facility] Specimen Urine - URINE, CLEAN CATCH Narrative Performed At Test developed and characteristics determined by [facility] Laboratory Services. Performing Organization Address City/State/Zipcode Phone Number [facility] CLIA: [id number], [address] [place] [address] [phone] [facility] URINE DRUG (LCMSMS) - SYNTHETIC OPIATES PANEL (11/26/2019 9:11 AM SERVICENOW ADMINISTRATOR) Tramadol-Interpretatio Negative Negative [facility] n SERVICES Propoxyph-Interpretati Negative Negative [facility] on SERVICES Normeperid-Interpretat Negative Negative [facility] ion SERVICES Meperidine-Interpretat Negative Negative [facility] ion SERVICES Methadone-Interpretati Negative Negative [facility] on SERVICES EDDP-Interpretation Negative Negative [facility] SERVICES CREAT U 109.1 mg/dL [facility] Norfentan-Interpretati Negative Negative [facility] on SERVICES Fentanyl-Interpretatio Negative Negative [facility] n SERVICES Buprenorph-Interpretat Negative Negative [facility] ion SERVICES Norbupren-Interpretati Negative Negative [facility] on SERVICES Carisopro-Interpretati Negative Negative [facility] on SERVICES Meprobamat-Interpretat Negative Negative [facility] ion SERVICES Specimen Urine - URINE, CLEAN CATCH Narrative Performed At Test developed and characteristics determined by [facility] Laboratory Services. Performing Organization Address City/State/Zipcode Phone Number [facility] CLIA: [id number], [address] [place] [address] [facility] CBC WITH DIFFERENTIAL (11/26/2019 9:11 AM SERVICENOW ADMINISTRATOR) WBC 9.66 4.20 - 10.70 [facility] 10*3/L SERVICES RBC 4.03 (L) 4.26 - 5.52 [facility] 10*6/L SERVICES HGB 12.0 (L) 12.2 - 16.4 [facility] g/dL SERVICES HCT 35.8 (L) 38.4 - 49.3 % [facility] MCV 88.8 81.7 - 95.6 [facility] fL SERVICES MCH 29.8 26.1 - 32.7 [facility] pg SERVICES MCHC 33.5 31.2 - 35.0 [facility] g/dL SERVICES RDW-SD 49.9 38.5 - 51.6 [facility] fL SERVICES RDW-CV 16.4 (H) 12.1 - 15.4 % [facility] PLT 93 (L) 150 - 328 [facility] 10*3/L SERVICES MPV 12.7 9.8 - 13.0 fL [facility] IPF % 8.5Comment: Platelet 1.2 - 10.7 % [facility] count measured by SERVICES fluorescence method. NRBC/100 WBC 0.0 0.0 - 10.0 [facility] /100 WBCs SERVICES NRBC x10^3 <0.01 10*3/L [facility] GRAN MAT (NEUT) % 71.7 % [facility] IMM GRAN % 0.40 % [facility] LYMPH % 13.0 % [facility] MONO % 13.5 % [facility] EOS % 0.9 % [facility] BASO % 0.5 % [facility] GRAN MAT 6.92 1.99 - 6.95 [facility] x10^3(ANC) 10*3/uL SERVICES IMM GRAN x10^3 0.04 0.00 - 0.06 [facility] 10*3/uL SERVICES LYMPH x10^3 1.26 1.09 - 3.23 [facility] 10*3/uL SERVICES MONO x10^3 1.30 (H) 0.36 - 1.02 [facility] 10*3/uL SERVICES EOS x10^3 0.09 0.06 - 0.53 [facility] 10*3/uL SERVICES BASO x10^3 0.05 0.01 - 0.09 [facility] 10*3/uL SERVICES Specimen Blood - ARM, RIGHT Performing Organization Address City/[facility] Phone Number [facility] CLIA: [id number], [address], [place] [phone] [facility] DRUG SCREEN PANEL 2 URINE (11/26/2019 9:11 AM SERVICENOW ADMINISTRATOR) AMPHET Negative Negative [facility] LISANDRA U Negative Negative [facility] BENZO U Negative Negative [facility] Cocaine Metabolite Negative Negative [facility] METHADONE Negative Negative [facility] SERVICES OPIATES Presumptive Negative [facility] Positive (A) SERVICES PCP Negative Negative [facility] SERVICES THC Negative Negative [facility] SERVICES Specimen Urine - URINE, CLEAN CATCH Narrative Performed At Urine Drug Cutoff Ranges [facility] SERVICES Cocaine: 150 ng/mL Benzodiazepines: 200 ng/mL Methadone: 300 ng/mL Amphetamine: 1,000 ng/mL Opiates: 300 ng/mL Cannabinoids: 50 ng/mL Phencyclidine: 25 ng/mL Barbiturates: 200 ng/mL The results are to be used only for medical (i.e., treatment) purposes. Unconfirmed screening results must not be used for non-medical purposes (e.g., employment testing, legal testing). Performing Organization Address City/State/Zipcode Phone Number [facility] CLIA: [id number], [address], [place] [phone] [facility] Magnesium Serum (11/26/2019 9:11 AM SERVICENOW ADMINISTRATOR) MAGNESIUM 2.1 1.7 - 2.4 mg/dL [facility] SERVICES Specimen Blood - ARM, RIGHT Performing Organization Address City/State/[facility] Phone Number [facility] CLIA: [id number], [address] [place] [phone] [facility] Prothrombin Time / INR (11/26/2019 9:11 AM SERVICENOW ADMINISTRATOR) PROTIME PATIENT 15.0 (H) 10.1 - 12.6 [facility] Seconds SERVICES INR 1.4Comment: Normal [facility] INR <1.1; Warfarin SERVICES Therapeutic range 2.0 to 3.0 or 2.5 to 3.5, depending upon the indications. Specimen Blood - ARM, RIGHT Performing Organization Address [facility] Phone Number [facility] CLIA: [id number], [address] [place] [address] [phone] [facility] HEPATIC FUNCTION PANEL ([id number]) (ALB,T.PRO,BILI T,BU/BC,ALT,AST,ALK PHOS) (2018 9:11 AM SERVICENOW ADMINISTRATOR) Pathologist [facility] [place] TOTAL BILI 2.2 (H) 0.1 - 1.1 mg/dL [facility] BILI UNCON 1.8 (H) 0.1 - 1.1 mg/dL [facility] BILI CONJ 0.0 0.0 - 0.3 mg/dL [facility] T PROTEIN 7.1 6.3 - 8.2 g/dL [facility] ALBUMIN 2.9 (L) 3.5 - 5.0 g/dL [facility] ALK PHOS 112 34 - 122 U/L [facility] ALTv 73 (H) 5 - 50 U/L [facility] AST(SGOT) 127 (H) 13 - 40 U/L [facility] Specimen Blood - ARM, RIGHT Performing Organization Address [facility] Phone Number [facility] CLIA: [id number], [address] [place] [address] [phone] [facility] BASIC METABOLIC PANEL (NA, K, CL, CO2, GLUCOSE, BUN, CREATININE, CA) (2018 9:11 AM SERVICENOW ADMINISTRATOR) NA 132 (L) 135 - 145 [facility] mmol/L SERVICES K 4.2 3.5 - 5.0 [facility] mmol/L SERVICES CL 95 (L) 98 - 108 mmol/L [facility] CO2 TOTAL 29 23 - 31 mmol/L [facility] AGAP 8 2 - 16 [facility] BUN 36 (H) 7 - 23 mg/dL [facility] GLUCOSE 160 (H) 70 - 110 mg/dL [facility] CREATININE 0.92 0.60 - 1.25 [facility] mg/dL SERVICES CALCIUM 8.3 (L) 8.6 - 10.6 [facility] mg/dL SERVICES eGFR Calculation 85.1 mL/min/1.73m2 [facility] (Non- SERVICES Tanzanian) eGFR Calculation 103.1 mL/min/1.73m2 [facility] () SERVICES Specimen Blood - ARM, RIGHT Narrative Performed At Association of Glomerular Filtration Rate (GFR) and Staging [facility] of Kidney Disease* + + + + | GFR (mL/min/1.73 m2) | With Kidney Damage | Without Kidney Damage + + + + | >90 | Stage one | Normal + + + + | 60-89 | Stage two | Decreased GFR + + + + | 30-59 | Stage three | Stage three + + + + | 15-29 | Stage four | Stage four + + + + | <15 (or dialysis) | Stage five | Stage five + + + + *Each stage assumes the associated GFR level has been in effect for at least three months. Stages 1 to 5, with or without kidney disease, indicate chronic kidney disease. Notes: Determination of stages one and two (with eGFR >59mL/min/1.73 m2) requires estimation of kidney damage for at least three months as defined by structural or functional abnormalities of the kidney, manifested by either: Pathological abnormalities or Markers of kidney damage (including abnormalities in the composition of the blood or urine or abnormalities in imaging tests). Performing Organization Address City/State/Zipcode Phone Number [facility] CLIA: [id number], [address] [place] [address] [phone] [facility] documented in this encounter Visit Diagnoses Diagnosis Acute on chronic combined systolic and diastolic congestive heart failure - Primary Acute on chronic combined systolic and diastolic heart failure SOB (shortness of breath) Shortness of breath Decompensated hepatic cirrhosis E44.0 Moderate protein calorie malnutrition Malnutrition of moderate degree documented in this encounter Administered Medications Medication Order MAR Action Action Date Dose Rate Site acetaminophen-codeine (TYLENOL Given 12/18/2019 8:12 AM SERVICENOW ADMINISTRATOR 1 tablet #3) 300-30 mg tablet 1 tablet 1 tablet, Oral, Q4HPRN, Starting Mon11/26/19 at 2147, Until Discontinued, Routine, Pain (scale 1-3), Pain (scale 4-6) Given 12/17/2019 3:12 AM SERVICENOW ADMINISTRATOR 1 tablet Given 12/15/2019 4:57 PM SERVICENOW ADMINISTRATOR 1 tablet aspirin chewable tablet 81 mg Given 12/18/2019 8:12 AM SERVICENOW ADMINISTRATOR 81 mg 81 mg, Oral, DAILY, First dose on Mon11/27/19 at 1030, Until Discontinued, Routine Given 12/17/2019 8:23 AM SERVICENOW ADMINISTRATOR 81 mg Given 12/16/2019 8:30 AM SERVICENOW ADMINISTRATOR 81 mg carvediloL (COREG) tablet 12.5 mg Given 12/18/2019 4:07 PM SERVICENOW ADMINISTRATOR 12.5 mg 12.5 mg, Oral, BID MEALS, First dose on Mon12/16/19 at 1700, Until Discontinued, Routine Given 12/18/2019 8:12 AM SERVICENOW ADMINISTRATOR 12.5 mg Given 12/17/2019 6:02 PM SERVICENOW ADMINISTRATOR 12.5 mg foLIC acid (FOLATE) tablet 1 mg Given 12/18/2019 8:12 AM SERVICENOW ADMINISTRATOR 1 mg 1 mg, Oral, DAILY, First dose on Mon11/30/19 at 0900, Until Discontinued, Routine Given 12/17/2019 8:23 AM SERVICENOW ADMINISTRATOR 1 mg Given 12/16/2019 8:30 AM SERVICENOW ADMINISTRATOR 1 mg furosemide (LASIX) tablet 40 mg Given 12/18/2019 4:07 PM SERVICENOW ADMINISTRATOR 40 mg 40 mg, Oral, QAM+PM, First dose on Mon12/18/19 at 1700, Until Discontinued, Routine heparin (porcine) injection Given 12/17/2019 8:24 PM SERVICENOW ADMINISTRATOR 5,000 Units Abdomen-SC 5,000 Units 5,000 Units, Subcutaneous, Q12H, First dose on Mon11/30/19 at 0800, Until Discontinued, Routine Given 12/15/2019 9:09 AM SERVICENOW ADMINISTRATOR 5,000 Units Abdomen-SC Given 12/14/2019 9:23 AM SERVICENOW ADMINISTRATOR 5,000 Units Abdomen-SC HYDROcodone-acetaminophen (NORCO 5) 5-325 Given 12/17/2019 8:24 PM SERVICENOW ADMINISTRATOR 1 tablet mg tablet 1 tablet 1 tablet, Oral, Q6HPRN, Starting Mon11/26/19 at 2148, Until Discontinued, Routine, Pain (scale 7-10) Given 12/16/2019 5:51 PM SERVICENOW ADMINISTRATOR 1 tablet Given 12/16/2019 12:45 AM SERVICENOW ADMINISTRATOR 1 tablet hydrOXYzine (ATARAX) tablet 10 mg Given 12/18/2019 8:12 AM SERVICENOW ADMINISTRATOR 10 mg 10 mg, Oral, Q6HPRN, Starting 12/02/19 at 2101, Until Discontinued, Routine, Anxiety Given 12/17/2019 8:24 PM SERVICENOW ADMINISTRATOR 10 mg Given 12/16/2019 11:28 PM SERVICENOW ADMINISTRATOR 10 mg ipratropium-albuterol (DUONEB) 0.5 mg-3 mg(2.5 Given 12/18/2019 2:18 PM SERVICENOW ADMINISTRATOR 3 mL mg base)/3 mL nebulizer solution 3 mL 3 mL, Inhalation, Q4H, First dose on 11/30/19 at 0800, Until Discontinued, Routine Given 12/18/2019 10:50 AM SERVICENOW ADMINISTRATOR 3 mL Given 12/18/2019 8:19 AM SERVICENOW ADMINISTRATOR 3 mL lactulose (CEPHULAC) solution 30 mL Given 12/17/2019 8:23 AM SERVICENOW ADMINISTRATOR 30 mL 30 mL, Oral, BID, First dose on Sakina 12/12/19 at 2000, Until Discontinued, Routine Given 12/16/2019 8:45 PM SERVICENOW ADMINISTRATOR 30 mL Given 12/16/2019 8:31 AM SERVICENOW ADMINISTRATOR 30 mL lanolin [id number].pet-ceres (EUCERIN) cream Given 12/18/2019 8:18 AM SERVICENOW ADMINISTRATOR Topical, DAILY, First dose on Sakina 12/12/19 at 0900, Until Discontinued, Routine Applied 12/17/2019 8:25 AM SERVICENOW ADMINISTRATOR Applied 12/16/2019 8:29 AM SERVICENOW ADMINISTRATOR magnesium oxide (MAG-OX 400) tablet 800 mg Given 12/18/2019 8:12 AM SERVICENOW ADMINISTRATOR 800 mg 800 mg, Oral, BID, First dose on Mon12/15/19 at 2000, Until Discontinued, Routine Given 12/17/2019 8:24 PM SERVICENOW ADMINISTRATOR 800 mg Given 12/17/2019 8:23 AM SERVICENOW ADMINISTRATOR 800 mg Miconazole Nitrate (DERMAFUNGAL) 2 % ointment Given 12/18/2019 8:18 AM SERVICENOW ADMINISTRATOR Topical, BID, First dose on Mon11/28/19 at 1415, Until Discontinued, Routine Given 12/17/2019 8:25 PM SERVICENOW ADMINISTRATOR Applied 12/17/2019 8:25 AM SERVICENOW ADMINISTRATOR nicotine (NICODERM) 21 mg/24 hr patch 1 Given 12/18/2019 7:04 AM SERVICENOW ADMINISTRATOR 1 Patch Patch 1 Patch, Topical, Administer over 24 Hours, Q24H, First dose on Mon11/29/19 at 0630, Until Discontinued, Routine Applied 12/17/2019 8:25 AM SERVICENOW ADMINISTRATOR 1 Patch Applied 12/16/2019 5:26 AM SERVICENOW ADMINISTRATOR 1 Patch ramelteon (ROZEREM) tablet 8 mg Given 12/17/2019 8:24 PM SERVICENOW ADMINISTRATOR 8 mg 8 mg, Oral, QHS, First dose on Mon12/02/19 at 2115, Until Discontinued, Routine Given 12/16/2019 8:43 PM SERVICENOW ADMINISTRATOR 8 mg Given 12/15/2019 8:53 PM SERVICENOW ADMINISTRATOR 8 mg SERTraline (ZOLOFT) tablet 25 mg Given 12/17/2019 8:24 PM SERVICENOW ADMINISTRATOR 25 mg 25 mg, Oral, QHS, First dose on Mon12/06/19 at 2100, Until Discontinued, Routine Given 12/16/2019 8:43 PM SERVICENOW ADMINISTRATOR 25 mg Given 12/15/2019 8:55 PM SERVICENOW ADMINISTRATOR 25 mg Sliding Scale Insulin-Regular + Fsbg Given 12/18/2019 4:04 PM SERVICENOW ADMINISTRATOR 1 Units Left Arm Testing Subcutaneous, AC+HS, First dose on 12/15/19 at 1130, Until Discontinued, Routine Given 12/18/2019 11:22 AM SERVICENOW ADMINISTRATOR 1 Units Left Arm Given 12/18/2019 8:16 AM SERVICENOW ADMINISTRATOR 1 Units Left Arm spironolactone (ALDACTONE) tablet 200 mg Given 12/18/2019 8:12 AM SERVICENOW ADMINISTRATOR 200 mg 200 mg, Oral, DAILY, First dose on 12/01/19 at 0900, Until Discontinued, Routine Given 12/17/2019 8:23 AM SERVICENOW ADMINISTRATOR 200 mg Given 12/16/2019 8:30 AM SERVICENOW ADMINISTRATOR 200 mg thiamine (VITAMIN B1) tablet 100 mg Given 12/18/2019 8:12 AM SERVICENOW ADMINISTRATOR 100 mg 100 mg, Oral, DAILY, First dose on 12/08/19 at 0945, Until Discontinued, Routine Given 12/17/2019 8:23 AM SERVICENOW ADMINISTRATOR 100 mg Given 12/16/2019 8:30 AM SERVICENOW ADMINISTRATOR 100 mg triamcinolone acetonide (TRIDERM) 0.1 % cream Applied 12/18/2019 11:27 AM SERVICENOW ADMINISTRATOR Topical, DAILY, First dose on Mon11/29/19 at 0900, Until Discontinued, Routine Applied 12/17/2019 8:25 AM SERVICENOW ADMINISTRATOR Applied 12/16/2019 8:29 AM SERVICENOW ADMINISTRATOR Medication Order MAR Action Action Date Dose Rate Site acetylcysteine (MUCOMYST) 200 Given 11/30/2019 7:16 AM SERVICENOW ADMINISTRATOR 200 mg mg/mL (20 %) solution 200 mg 200 mg (1 mL), Inhalation, Q6H, First dose on 11/30/19 at 0600, Until Discontinued, Routine albumin (PLASBUMIN) 25 % injection 100 g Given 11/29/2019 1:04 PM SERVICENOW ADMINISTRATOR 100 g 100 g, IV Infusion, ONCE, 1 dose, Mon11/29/19 at 1100, 400 mL, Indication: HEPATORENAL SYNDROME (DIAGNOSIS), Comments: Albumin 1 g/kg/day for 2 days (up to a maximum of 100 g/day) albumin (PLASBUMIN) 25 % injection 100 g Given 11/30/2019 10:24 AM SERVICENOW ADMINISTRATOR 100 g 100 g, IV Infusion, ONCE, 1 dose, 11/30/19 at 1000, 400 mL, Indication: HEPATORENAL SYNDROME (DIAGNOSIS), Comments: Albumin 1 g/kg/day for 2 days (up to a maximum of 100 g/day) albumin (PLASBUMIN) 25 % injection 50 g Given 11/26/2019 4:56 PM SERVICENOW ADMINISTRATOR 50 g 50 g, IV Infusion, ONCE, 1 dose, Mon11/26/19 at 1445, 200 mL, Indication: HEPATORENAL SYNDROME (DIAGNOSIS), Comments: Dosin-8 g/L of ascitic fluid removed aspirin tablet Given 12/17/2019 10:15 AM SERVICENOW ADMINISTRATOR 325 mg Oral, PRN, Starting Mon12/17/19 at 1015, Until Mon12/17/19 at 1015, Routine carvedilol (COREG) tablet 3.125 mg Given 11/30/2019 7:33 PM SERVICENOW ADMINISTRATOR 3.125 mg 3.125 mg, Oral, BID MEALS, First dose on Mon11/30/19 at 1700, Until Discontinued, Routine carvedilol (COREG) tablet 6.25 mg Given 12/15/2019 4:57 PM SERVICENOW ADMINISTRATOR 6.25 mg 6.25 mg, Oral, BID MEALS, First dose on Mon12/01/19 at 0800, Until Discontinued, Routine Given 12/15/2019 9:08 AM SERVICENOW ADMINISTRATOR 6.25 mg Given 12/14/2019 4:03 PM SERVICENOW ADMINISTRATOR 6.25 mg digoxin (LANOXIN) tablet 0.25 mg Given 11/29/2019 7:55 AM SERVICENOW ADMINISTRATOR 0.25 mg 0.25 mg (250 mcg), Oral, DAILY, First dose on Mon11/27/19 at 0900, Until Discontinued, Routine Given 11/28/2019 8:23 AM SERVICENOW ADMINISTRATOR 0.25 mg Given 11/27/2019 9:03 AM SERVICENOW ADMINISTRATOR 0.25 mg FENTanyl PF (SUBLIMAZE (PF)) injection Given 12/17/2019 10:42 AM SERVICENOW ADMINISTRATOR 25 mcg Slow IV Push, TITRATE - FOR PROCEDURE USE, 1 dose, Starting Mon12/17/19 at 1042, Until Mon12/17/19 at 1042, Routine FENTanyl PF (SUBLIMAZE (PF)) injection Given 12/17/2019 10:46 AM SERVICENOW ADMINISTRATOR 25 mcg Slow IV Push, TITRATE - FOR PROCEDURE USE, 1 dose, Starting Mon12/17/19 at 1046, Until Mon12/17/19 at 1046, Routine furosemide (LASIX) injection 20 mg Given 12/03/2019 9:09 AM SERVICENOW ADMINISTRATOR 20 mg 20 mg, Slow IV Push, ONCE, 1 dose, Mon12/03/19 at 0845, Routine furosemide (LASIX) injection 40 mg Given 11/28/2019 10:20 AM SERVICENOW ADMINISTRATOR 40 mg 40 mg, Slow IV Push, Q12H, First dose on Mon11/28/19 at 0930, Until Discontinued, Routine furosemide (LASIX) injection 40 mg Given 12/11/2019 12:42 PM SERVICENOW ADMINISTRATOR 40 mg 40 mg, Slow IV Push, ONCE, 1 dose, Mon12/11/19 at 1200, Routine furosemide (LASIX) injection 40 mg Given 12/16/2019 8:31 AM SERVICENOW ADMINISTRATOR 40 mg 40 mg, Slow IV Push, Q12H, First dose on Mon12/15/19 at 2000, Until Discontinued, Routine Given 12/15/2019 8:59 PM SERVICENOW ADMINISTRATOR 40 mg furosemide (LASIX) injection 60 mg Given 12/15/2019 9:08 AM SERVICENOW ADMINISTRATOR 60 mg 60 mg, Slow IV Push, Q12H, First dose on Mon12/06/19 at 2000, Until Discontinued, Routine Given 12/14/2019 9:01 PM SERVICENOW ADMINISTRATOR 60 mg Given 12/14/2019 9:23 AM SERVICENOW ADMINISTRATOR 60 mg furosemide (LASIX) tablet 20 mg Given 11/26/2019 10:44 AM SERVICENOW ADMINISTRATOR 20 mg 20 mg, Oral, DAILY, First dose on Mon11/26/19 at 1030, Until Discontinued, Routine furosemide (LASIX) tablet 20 mg Given 11/27/2019 9:03 AM SERVICENOW ADMINISTRATOR 20 mg 20 mg, Oral, DAILY, First dose on Mon11/27/19 at 0900, Until Discontinued, Routine furosemide (LASIX) tablet 40 mg Given 11/26/2019 4:56 PM SERVICENOW ADMINISTRATOR 40 mg 40 mg, Oral, QAM+PM, First dose on Mon11/26/19 at 1700, Until Discontinued, Routine furosemide (LASIX) tablet 40 mg Given 11/28/2019 8:24 AM SERVICENOW ADMINISTRATOR 40 mg 40 mg, Oral, QAM+PM, First dose on Mon11/27/19 at 1700, Until Discontinued, Routine Given 11/27/2019 4:19 PM SERVICENOW ADMINISTRATOR 40 mg furosemide (LASIX) tablet 40 mg Given 11/29/2019 10:12 AM SERVICENOW ADMINISTRATOR 40 mg 40 mg, Oral, DAILY, First dose on Mon11/29/19 at 1015, Until Discontinued, Routine furosemide (LASIX) tablet 40 mg Given 11/30/2019 10:10 AM SERVICENOW ADMINISTRATOR 40 mg 40 mg, Oral, DAILY, First dose on Mon11/30/19 at 0900, Until Discontinued, Routine furosemide (LASIX) tablet 40 mg Given 11/30/2019 9:21 PM SERVICENOW ADMINISTRATOR 40 mg 40 mg, Oral, ONCE AT 2000, 1 dose, Mon11/30/19 at 2000, Routine furosemide (LASIX) tablet 60 mg Given 12/18/2019 8:12 AM SERVICENOW ADMINISTRATOR 60 mg 60 mg, Oral, QAM+PM, First dose on Mon12/17/19 at 1700, Until Discontinued, Routine Given 12/17/2019 6:02 PM SERVICENOW ADMINISTRATOR 60 mg furosemide (LASIX) tablet 80 mg Given 12/06/2019 8:43 AM SERVICENOW ADMINISTRATOR 80 mg 80 mg, Oral, DAILY, First dose on Mon12/01/19 at 0900, Until Discontinued, Routine Given 12/04/2019 8:26 AM SERVICENOW ADMINISTRATOR 80 mg Given 12/03/2019 9:08 AM SERVICENOW ADMINISTRATOR 80 mg heparin 1,000 unit/mL Given 12/17/2019 10:54 AM SERVICENOW ADMINISTRATOR 2,500 Units Right Wrist injection Slow IV Push, TITRATE - FOR PROCEDURE USE, 1 dose, Starting e 12/17/19 at 1054, Until 12/17/19 at 1054, Routine hydrOXYzine (ATARAX) tablet 25 mg Given 12/07/2019 12:57 AM SERVICENOW ADMINISTRATOR 25 mg 25 mg, Oral, ONCE, 1 dose, 12/07/19 at 0030, Routine ipratropium-albuterol (DUONEB) 0.5 mg-3 mg(2.5 Given 11/30/2019 1:07 AM SERVICENOW ADMINISTRATOR 3 mL mg base)/3 mL nebulizer solution 3 mL 3 mL, Inhalation, Q6HPRN, Starting 11/30/19 at 0000, Until 11/30/19 at 0728, Routine, Wheezing, Shortness of Breath iron dextran (INFED) 1,000 mg in NaCl New Bag 12/01/2019 8:18 AM SERVICENOW ADMINISTRATOR 1,000 mg 0.9% (NS) 500 mL IV infusion 1,000 mg, IV Infusion, ONCE, 1 dose, Baldwin 12/01/19 at 0730, 500 mL iron dextran (INFED) 25 mg in NaCl 0.9% (NS) Given 12/01/2019 1:18 PM SERVICENOW ADMINISTRATOR 25 mg 100 mL IV piggyback 25 mg, IV Piggyback, ONCE, 1 dose, Baldwin 12/01/19 at 0745, 100 mL KCL (KLOR-CON M20) tablet 40 mEq Given 12/12/2019 9:37 PM SERVICENOW ADMINISTRATOR 40 mEq 40 mEq, Oral, BID, 2 doses, First dose on Sakina 12/12/19 at 0800, Last dose on Sakina 12/12/19 at 2000, Routine Given 12/12/2019 8:01 AM SERVICENOW ADMINISTRATOR 40 mEq lactulose (CEPHULAC) solution 30 mL Given 11/26/2019 9:34 PM SERVICENOW ADMINISTRATOR 30 mL 30 mL, Oral, TID, First dose on 11/26/19 at 1500, Until Discontinued, Routine Given 11/26/2019 4:56 PM SERVICENOW ADMINISTRATOR 30 mL lactulose (CEPHULAC) solution 30 mL Given 12/04/2019 8:26 AM SERVICENOW ADMINISTRATOR 30 mL 30 mL, Oral, QID, First dose on Baldwin 12/01/19 at 0800, Until Discontinued, Routine Given 12/03/2019 7:58 PM SERVICENOW ADMINISTRATOR 30 mL Given 12/03/2019 4:12 PM SERVICENOW ADMINISTRATOR 30 mL lactulose (CEPHULAC) solution 30 mL Given 12/12/2019 8:01 AM SERVICENOW ADMINISTRATOR 30 mL 30 mL, Oral, TID, First dose on Mon12/04/19 at 1400, Until Discontinued, Routine Given 12/11/2019 4:09 PM SERVICENOW ADMINISTRATOR 30 mL Given 12/11/2019 8:03 AM SERVICENOW ADMINISTRATOR 30 mL lactulose (CEPHULAC) solution 45 mL Given 11/30/2019 7:33 PM SERVICENOW ADMINISTRATOR 45 mL 45 mL, Oral, QID, First dose on Mon11/27/19 at 0800, Until Discontinued, Routine Given 11/30/2019 2:17 PM SERVICENOW ADMINISTRATOR 45 mL Given 11/30/2019 8:31 AM SERVICENOW ADMINISTRATOR 45 mL lidocaine 1% (PF) (XYLOCAINE) Given 12/17/2019 10:47 AM SERVICENOW ADMINISTRATOR 5 mL Right Wrist injection Infiltration, TITRATE - FOR PROCEDURE USE, 1 dose, Starting Mon12/17/19 at 1047, Until Mon12/17/19 at 1047, Routine lidocaine 2% (XYLOCAINE) 20 mg/mL (2 Given 11/26/2019 2:07 PM SERVICENOW ADMINISTRATOR 20 mL Abdomen %) injection 20 mL 20 mL, Subcutaneous, ONCE, 1 dose, Mon11/26/19 at 1245, Routine LORazepam (ATIVAN) tablet 2 mg Given 11/27/2019 4:03 AM SERVICENOW ADMINISTRATOR 2 mg 2 mg, Oral, ONCE, 1 dose, Mon11/27/19 at 0500, Routine magnesium oxide (MAG-OX 400) tablet 800 mg Given 12/15/2019 9:08 AM SERVICENOW ADMINISTRATOR 800 mg 800 mg, Oral, DAILY, First dose on Mon12/10/19 at 0900, Until Discontinued, Routine Given 12/14/2019 9:23 AM SERVICENOW ADMINISTRATOR 800 mg Given 12/13/2019 8:09 AM SERVICENOW ADMINISTRATOR 800 mg magnesium sulfate in water 2 gram/50 mL New Bag 12/06/2019 3:51 PM SERVICENOW ADMINISTRATOR 2, 000 mg (4 %) 2,000 mg piggyback 2,000 mg, IV Infusion, ONCE, 1 dose, Mon12/06/19 at 1445 magnesium sulfate in water 2 gram/50 mL New Bag 12/16/2019 9:45 AM SERVICENOW ADMINISTRATOR 2, 000 mg (4 %) 2,000 mg piggyback 2,000 mg, IV Infusion, ONCE, 1 dose, 1/20/20 at 0915 magnesium sulfate in water 2 gram/50 mL (4 %) 12/09/2019 6:04 AM SERVICENOW ADMINISTRATOR 2 g infusion 2 g 2 g, IV Piggyback, ONCE, 1 dose, 12/09/19 at 0630, Routine magnesium sulfate in water 4 gram/50 mL (8 %) 12/15/2019 10:30 AM SERVICENOW ADMINISTRATOR 4 g 4 g piggyback 4 g, IV Infusion, ONCE, 1 dose, 12/15/19 at 1030 magnesium sulfate in water 4 gram/50 mL 12/18/2019 11:12 AM SERVICENOW ADMINISTRATOR 4, 000 mg (8 %) 4,000 mg piggyback 4,000 mg, IV Infusion, ONCE, 1 dose, 12/18/19 at 0830 magnesium sulfate in water 4 gram/50 mL (8 %) 12/01/2019 4:37 AM SERVICENOW ADMINISTRATOR 4 g IV Piggyback 4 g 4 g, IV Piggyback, ONCE, 1 dose, 12/01/19 at 0530, Routine magnesium sulfate in water 4 gram/50 mL (8 %) 12/04/2019 11:51 AM SERVICENOW ADMINISTRATOR 4 g IV Piggyback 4 g 4 g, IV Piggyback, ONCE, 1 dose, 12/04/19 at 0815, Routine magnesium sulfate in water 4 gram/50 mL (8 %) 12/07/2019 10:16 AM SERVICENOW ADMINISTRATOR 4 g IV Piggyback 4 g 4 g, IV Piggyback, ONCE, 1 dose, 12/07/19 at 0830, Routine magnesium sulfate in water 4 gram/50 mL (8 %) 12/08/2019 9:45 AM SERVICENOW ADMINISTRATOR 4 g IV Piggyback 4 g 4 g, IV Piggyback, ONCE, 1 dose, 12/08/19 at 0730, Routine magnesium sulfate in water 4 gram/50 mL (8 %) 12/09/2019 10:21 AM SERVICENOW ADMINISTRATOR 4 g IV Piggyback 4 g 4 g, IV Piggyback, ONCE, 1 dose, 12/09/19 at 0900, Routine magnesium sulfate in water 4 gram/50 mL (8 %) 12/10/2019 8:30 AM SERVICENOW ADMINISTRATOR 4 g IV Piggyback 4 g 4 g, IV Piggyback, ONCE, 1 dose, 12/10/19 at 0715, Routine magnesium sulfate in water 4 gram/50 mL (8 %) New Bag 12/11/2019 8:13 AM SERVICENOW ADMINISTRATOR 4 g IV Piggyback 4 g 4 g, IV Piggyback, ONCE, 1 dose, 12/11/19 at 0830, Routine magnesium sulfate in water 4 gram/50 mL (8 %) New Bag 12/12/2019 9:48 AM SERVICENOW ADMINISTRATOR 4 g IV Piggyback 4 g 4 g, IV Piggyback, ONCE, 1 dose, Sakina 12/12/19 at 0830, Routine magnesium sulfate in water 4 gram/50 mL (8 %) New Bag 12/13/2019 2:34 PM SERVICENOW ADMINISTRATOR 4 g IV Piggyback 4 g 4 g, IV Piggyback, ONCE, 1 dose, Mon12/13/19 at 1300, Routine melatonin (MELATIN) tablet 3 mg Given 11/27/2019 2:07 AM SERVICENOW ADMINISTRATOR 3 mg 3 mg, Oral, ONCE, 1 dose, 11/27/19 at 0300, Routine midazolam (VERSED) injection Given 12/17/2019 10:42 AM SERVICENOW ADMINISTRATOR 1 mg IV Push, TITRATE - FOR PROCEDURE USE, 1 dose, Starting 12/17/19 at 1042, Until 12/17/19 at 1042, Routine midazolam (VERSED) injection Given 12/17/2019 10:46 AM SERVICENOW ADMINISTRATOR 1 mg IV Push, TITRATE - FOR PROCEDURE USE, 1 dose, Starting 12/17/19 at 1046, Until 12/17/19 at 1046, Routine NaCl 0.9% (NS) bolus infusion 250 New Bag 12/18/2019 11:22 AM SERVICENOW ADMINISTRATOR 250 mL 100 mL/hr mL at 100 mL/hr, 250 mL, IV Piggyback, ONCE, 1 dose, Mon12/18/19 at 1145, STAT nitroglycerin (TRIDIL) 2 mg in 10 Given 12/17/2019 10:54 AM SERVICENOW ADMINISTRATOR 0.2 mg Right Wrist mL D5W for Cardiac Cath Intravenous, TITRATE - FOR PROCEDURE USE, 1 dose, Starting 12/17/19 at 1054, Until 12/17/19 at 1054, Routine perflutren protein-A microsphr (OPTISON) Given 11/26/2019 4:20 PM SERVICENOW ADMINISTRATOR 3 mL injection 3 mL 3 mL, IV Push, ONCE, 1 dose, Mon11/26/19 at 1730, Routine sacubitril-valsartan (ENTRESTO) 24-26 mg Given 11/28/2019 9:17 AM SERVICENOW ADMINISTRATOR 1 tablet tablet 1 tablet 1 tablet, Oral, BID, First dose on Mon11/26/19 at 2000, Until Discontinued, Routine, natural resources faculty member approving Restricted medication: JOSE ERAZO Given 11/27/2019 8:01 PM SERVICENOW ADMINISTRATOR 1 tablet Given 11/27/2019 9:03 AM SERVICENOW ADMINISTRATOR 1 tablet spironolactone (ALDACTONE) tablet 100 mg Given 11/28/2019 8:24 AM SERVICENOW ADMINISTRATOR 100 mg 100 mg, Oral, DAILY, First dose on Mon11/28/19 at 0900, Until Discontinued, Routine spironolactone (ALDACTONE) tablet 100 mg Given 11/29/2019 10:13 AM SERVICENOW ADMINISTRATOR 100 mg 100 mg, Oral, DAILY, First dose on Mon11/29/19 at 1015, Until Discontinued, Routine spironolactone (ALDACTONE) tablet 100 mg Given 11/30/2019 10:10 AM SERVICENOW ADMINISTRATOR 100 mg 100 mg, Oral, DAILY, First dose on Mon11/30/19 at 0900, Until Discontinued, Routine spironolactone (ALDACTONE) tablet 100 mg Given 11/30/2019 7:34 PM SERVICENOW ADMINISTRATOR 100 mg 100 mg, Oral, ONCE AT 1999, 1 dose, Mon11/30/19 at 2000, Routine spironolactone (ALDACTONE) tablet 50 mg Given 11/26/2019 10:44 AM [employer] ADMINISTRATOR 50 mg 50 mg, Oral, DAILY, First dose on Mon11/26/19 at 1030, Until Discontinued, Routine spironolactone (ALDACTONE) tablet 50 mg Given 11/27/2019 9:03 AM [employer] ADMINISTRATOR 50 mg 50 mg, Oral, DAILY, First dose on Mon11/27/19 at 0900, Until Discontinued, Routine thiamine (VITAMIN B1) 100 mg in NaCl 0.9% Given 12/07/2019 8:52 AM [employer] ADMINISTRATOR 100 mg (NS) piggyback IV Piggyback, DAILY, First dose on Mon11/30/19 at 0900, Until Discontinued, 50 mL Given 12/06/2019 8:44 AM [employer] ADMINISTRATOR 100 mg Given 12/05/2019 8:40 AM [employer] ADMINISTRATOR 100 mg trimethobenzamide (TIGAN) Given 11/29/2019 1:02 PM 100 mg Left Vastus injection 100 mg [employer] ADMINISTRATOR Lateralis-IM 100 mg, Intramuscular, [id number], Starting 11/29/19 at 1206, Until 12/01/19 at 0741, Routine, Nausea and Vomiting (N/V) documented in this encounter Insurance Payer Benefit Plan / Subscriber ID Effective Dates Phone Address Type Group MEDICARE MEDICARE PART xxxxxxxxxxx 2014-Sarah [phone] Medicare A & B t 2 [id number] [place] [id number] documented as of this encounter Advance Directives Name Relationship Healthcare Agent Relationship Communication Tamera Dhaliwal Other First alternate healthcare agent
--- OUTSIDE RECORDS SUMMARY | 2020-02-15 22:40 | XMS REPORT | Summary of Care ---
:1965 Author Organization [facility] - Health Address [address] [place] [address] Care Team Providers Name Role Phone Greer Gaviria Primary Care Provider Encounter Details Date Type Department Care Team Description 12/26/2019 Orders Only [facility] Doctor Unassigned, No [address] [facility] [place] [address] [place] [id number] Allergies No Known Allergiesdocumented as of this encounter (statuses as of 12/26/2019) Medications Medication Sig Dispensed Refills Start Date End Date Status thiamine 100 mg Take 1 tablet by 30 tablet 5 12/19/2019 Active tabletIndications: mouth daily. Decompensated hepatic cirrhosis, Acute on chronic combined systolic and diastolic congestive heart failure furosemide 40 mg Take 1 tablet by 60 tablet 2 12/18/2019 Active tabletIndications: mouth every Decompensated hepatic morning and cirrhosis, Acute on evening. chronic combined systolic and diastolic congestive heart failure aspirin 81 mg chewable Take 1 tablet by 30 tablet 2 12/19/2019 Active tabletIndications: mouth daily. Decompensated hepatic cirrhosis, Acute on chronic combined systolic and diastolic congestive heart failure carvediloL 12.5 mg Take 1 tablet by 30 tablet 2 12/18/2019 Active tabletIndications: mouth 2 (two) Decompensated hepatic times daily with cirrhosis, Acute on meals. chronic combined systolic and diastolic congestive heart failure foLIC acid 1 mg Take 1 tablet by 30 tablet 5 12/19/2019 Active tabletIndications: mouth daily. Decompensated hepatic cirrhosis, Acute on chronic combined systolic and diastolic congestive heart failure hydrOXYzine 10 mg Take 1 tablet by 30 tablet 2 12/18/2019 Active tabletIndications: mouth every 6 Decompensated hepatic (six) hours as cirrhosis, Acute on needed for chronic combined Itching or systolic and diastolic Anxiety. congestive heart failure ipratropium-albuterol Inhale 3 mL every 1 Box 1 12/18/2019 Active 0.5 mg-3 mg(2.5 mg 4 (four) hours as base)/3 mL nebulizer needed for solutionIndications: Wheezing or Decompensated hepatic Shortness of cirrhosis, Acute on Breath. chronic combined systolic and diastolic congestive heart failure lactulose 10 gram/15 mL Take 30 mL by 1 Bottle 5 12/18/2019 Active solutionIndications: mouth 2 (two) Decompensated hepatic times daily. cirrhosis, Acute on chronic combined systolic and diastolic congestive heart failure magnesium oxide 420 mg Take 800 mg by 60 tablet 2 12/18/2019 Active TabIndications: mouth 2 (two) Decompensated hepatic times daily. cirrhosis, Acute on chronic combined systolic and diastolic congestive heart failure nicotine 21 mg/24 hr Apply 1 Patch to 28 Patch 3 12/19/2019 Active patchIndications: area(s) every 24 Decompensated hepatic (twenty-four) cirrhosis, Acute on hours. chronic combined systolic and diastolic congestive heart failure ramelteon 8 mg Take 1 tablet by 30 tablet 2 12/18/2019 Active tabletIndications: mouth at bedtime. Decompensated hepatic cirrhosis, Acute on chronic combined systolic and diastolic congestive heart failure SERTraline 25 mg Take 1 tablet by 30 tablet 2 12/18/2019 Active tabletIndications: mouth at bedtime. Decompensated hepatic cirrhosis, Acute on chronic combined systolic and diastolic congestive heart failure spironolactone 100 mg Take 2 tablets by 60 tablet 2 12/19/2019 Active tabletIndications: mouth daily. Decompensated hepatic cirrhosis, Acute on chronic combined systolic and diastolic congestive heart failure documented as of this encounter (statuses as of 12/26/2019) Active Problems Problem Noted Date E44.0 Moderate protein calorie malnutrition 11/27/2019 Decompensated hepatic cirrhosis 11/26/2019 COPD exacerbation 2019 CHF exacerbation 10/18/2017 Obesity (BMI 30-39.9) 10/18/2017 documented as of this encounter (statuses as of 12/26/2019) Immunizations Name Administration Dates Next Due Influenza [...] of this encounter Last Filed Vital Signs Not on filedocumented in this encounter Plan of Treatment Health Maintenance Due Date Last Done Comments [...] encounter Procedures Procedure Name Priority Date/Time Associated Diagnosis Comments POWER OF APPLICATION CONSULTANT Routine 12/26/2019 12:01 AM MANAGER CONTENT documented in this encounter Results Not on filedocumented in this encounter Insurance Payer Benefit Plan / Subscriber ID Effective Dates Phone Address Type Group MEDICARE MEDICARE PART xxxxxxxxxxx 2014-Sarah [phone] [address] Medicare A & B t 2 [id number] [place] [id number] documented as of this encounter Advance Directives Name Relationship Healthcare Agent Relationship Communication Tamera Dhaliwal Other First alternate healthcare agent
--- OUTSIDE RECORDS SUMMARY | 2020-02-15 22:40 | XMS REPORT | Summary of Care ---
:1965 Author Organization [address] [address] Care Team Providers Name Role Phone Greer Gaviria Primary Care Provider Reason for Visit Reason Comments Hospital F/U Encounter Details Date Type Department Care Team Description 12/19/2019 Transition of Care [facility] Kaia Hoffmann RN [facility] F/U [address] [id number] Allergies No Known Allergiesdocumented as of this encounter (statuses as of 12/19/2019) Medications Medication Sig Dispensed Refills Start Date [...] as of this encounter (statuses as of 12/19/2019) Active Problems Problem Noted Date E44.0 Moderate protein calorie malnutrition 11/27/2019 Decompensated hepatic cirrhosis 11/26/2019 COPD exacerbation 2019 CHF exacerbation 10/18/2017 Obesity (BMI 30-39.9) 10/18/2017 documented as of this encounter (statuses as of 12/19/2019) Immunizations Name Administration Dates Next Due Influenza [...] Completed 06/14/2019 documented as of this encounter Results Not on filedocumented in this encounter Insurance Payer Benefit Plan / Subscriber ID Effective Dates Phone Address Type Group MEDICARE MEDICARE PART xxxxxxxxxxx 2014-Sarah [phone] Medicare A & B t 2 [id number] [place] [id number] documented as of this encounter Advance Directives Name Relationship Healthcare Agent Relationship Communication Tamera Dhaliwal Other First alternate healthcare agent
--- OUTSIDE RECORDS SUMMARY | 2020-02-15 22:40 | XMS REPORT | Summary of Care ---
:1965 Author Organization [facility] - Health Address [address] [place] [address] Care Team Providers Name Role Phone Greer Gaviria Primary Care Provider Encounter Details Date Type Department Care Team Description 01/15/2020 Orders Only [facility] Doctor Unassigned, No 301 [facility] [place] [address] [place] [id number] Allergies No Known Allergiesdocumented as of this encounter (statuses as of 01/15/2020) Medications Medication Sig Dispensed Refills Start Date [...] as of this encounter (statuses as of 01/15/2020) Active Problems Problem Noted Date E44.0 Moderate protein calorie malnutrition 11/27/2019 Decompensated hepatic cirrhosis 11/26/2019 COPD exacerbation 2019 CHF exacerbation 10/18/2017 Obesity (BMI 30-39.9) 10/18/2017 documented as of this encounter (statuses as of 01/15/2020) Immunizations Name Administration Dates Next Due Influenza [...] Priority Date/Time Associated Diagnosis Comments POWER OF DE ICER ELEMENT WINDER Routine 01/15/2020 12:01 AM FIRE TENDER documented in this encounter Results Not on filedocumented in this encounter Insurance Payer Benefit Plan / Subscriber ID Effective Dates Phone Address Type Group MEDICARE MEDICARE PART xxxxxxxxxxx 2014-Sarah [phone] [address] Medicare A & B t 2 [id number] [place] [id number] documented as of this encounter Advance Directives Name Relationship Healthcare Agent Relationship Communication Tamera Dhaliwal Other First alternate healthcare agent
[2020-02-15] MEDS ORDERED: METHYLPREDNISOLONE 125 MG INJ ONE (22:57)
[2020-02-15] MEDS ORDERED: LEVALBUTEROL 1.25 MG/3 ML NEB ONE (22:58)
[2020-02-15] MEDS ORDERED: MORPHINE 2 MG/ML SYR ONE (22:58)
[2020-02-15] MEDS ORDERED: IPRATROPIUM BROM 0.5MG/2.5ML ONE (22:58)
[2020-02-15] MEDS ORDERED: ONDANSETRON 4 MG/2 ML VIAL ONE (22:59)
[2020-02-15] MEDS ORDERED: CEFTRIAXONE/SWI 1gm 1 GM/10 ML SYR ONE (23:14)
[2020-02-15] MEDS ORDERED: FUROSEMIDE 20 MG/ 2ML VIAL ONE (23:14)
[2020-02-15 23:20] LABS: Arterial Blood Carboxyhemoglob 2.5 % (0-1.5); Blood Gas Oxyhemoglobin 96.6 % (94-97); Blood O2 Saturation 99.8 % (92-98.5)
[2020-02-15 23:36] LABS: Absolute Lymphocytes (CBC) 1.2 K/uL (0.7-4.9); Basophils % 0.3 % (0-1.3); Hematocrit 37.6 % (39.6-49.0); Lymphocytes % 6.1 % (15.3-44.8); MPV 11.7 fL (7.6-11.3); RBC Red Blood Cell Count 3.95 M/uL (4.33-5.43)
[2020-02-15 23:37] LABS: Protime INR 1.29
[2020-02-15 23:52] LABS: ALT/SGPT 76 U/L (12-78); AST/SGOT 77 U/L (15-37); Albumin 2.2 g/dL (3.4-5.0); Alkaline Phosphatase 98 U/L (45-117); BUN Blood Urea Nitrogen 15 mg/dL (7-18); Bicarbonate 26 mmol/L (21-32); Bilirubin Total 2.3 mg/dL (0.2-1.0); Glucose Level 158 mg/dL (74-106); Magnesium 1.5 mg/dL (1.8-2.4); NT PRO-BNP 17178 pg/mL (<125); Potassium 4.1 mmol/L (3.5-5.1); Protein, Total 7.9 g/dL (6.4-8.2); Sodium Level 139 mmol/L (136-145); Troponin (Emerg Dept Use Only) 0.05 ng/mL (0.0-0.045)
--- NOTE | 2020-02-16 00:08 | ER ---
Nurse's Notes [facility] Name: Bob Santana Age: 54 yrs Sex: Male : 1965 Arrival Date: 02/15/2020 Time: 22:32 Bed 8 Private MD: Diagnosis: Chest pain, unspecified;Cardiomegaly;Pleural effusion in conditions classified elsewhere;Unspecified cirrhosis of liver;Edema, unspecified;Hypomagnesemia;Ascites;Fever, unspecified-102.5;Dyspnea;Pneumonia due to other specified bacteria;Elevated white blood cell count Presentation: 02/14 22:36 Chief complaint: EMS states: Called for patient with shortness of breath that began 3 lp1 days ago and worsening along with chest pain; attempted breathing treatments at home with no improvement; Took Lasix 40 mg x3 today; Per EMS, unable to obtain peripheral IV access. Coronavirus screen: Patient reports a subjective fever or greater than 100.4F, or cough, or shortness of breath, or difficulty breathing. Patient denies travel on a cruise ship or to a country the [facility] currently lists as an affected area. Patient denies contact with known and/or suspected case of COVID-19. Ebola Screen: No symptoms or risks identified at this time. Initial Sepsis Screen: Does the patient meet any 2 criteria? RR > 20 per min. HR > 90 bpm. Yes Does the patient have a suspected source of infection? No. Patient's initial sepsis screen is negative. Risk Assessment: Do you want to hurt yourself or someone else? Patient reports no desire to harm self or others. Onset of symptoms was February 13, 2020. Care prior to arrival: Oxygen administered. via a non-rebreather mask. 22:36 Method Of Arrival: EMS: [facility] lp1 22:36 Acuity: KISHAN 2 lp1 Historical: - Allergies: 22:42 No Known Allergies; lp1 - Home Meds: 22:42 aspirin 81 mg Oral chew [Active]; buspirone 10 mg Oral tab 1 tab 3 times per day lp1 [Active]; carvedilol 3.125 mg Oral tab 1 tab 2 times per day [Active]; digoxin 250 mcg Oral tab 1 tab once daily [Active]; furosemide 40 mg Oral tab 1 tab 2 times per day [Active]; lisinopril 5 mg Oral tab 1 tab once daily [Active]; spironolactone 25 mg Oral tab 1 tab once daily [Active]; - PMHx: 22:42 cardiomegaly; CHF; COPD; Hepatitis; Hypertension; lp1 02/15 01:37 Cirrhosis; lp1 - PSHx: 02/14 22:42 None; lp1 - Immunization history:: Adult Immunizations up to date. - Social history:: Smoking status: Patient reports the use of cigarette tobacco products, smokes one-half pack cigarettes per day. - Family history:: not pertinent. Screenin:42 Abuse screen: Denies threats or abuse. Denies injuries from another. Nutritional lp1 screening: No deficits noted. Tuberculosis screening: No symptoms or risk factors identified. 02/15 02:37 Fall Risk None identified. rv Assessment: 02/14 22:37 General: Appears distressed, uncomfortable, ill, obese, Behavior is cooperative, jb4 anxious, restless. Pain: Complains of pain in chest Pain does not radiate. Pain currently is 8 out of 10 on a pain scale. Quality of pain is described as pressure. Neuro: Level of Consciousness is awake, alert, obeys commands, Oriented to person, place, time, situation. Cardiovascular: Patient's skin is warm and dry. Rhythm is irregular. Respiratory: Airway is patent Respiratory effort is labored, shallow, weak, using tripod position, Respiratory pattern is symmetrical, tachypnea Breath sounds are coarse bilaterally. Breath sounds are diminished bilaterally. GI: No signs and/or symptoms were reported involving the gastrointestinal system. : No signs and/or symptoms were reported regarding the genitourinary system. EENT: No signs and/or symptoms were reported regarding the EENT system. Derm: Skin is intact, Skin is dry, Skin is pale, Skin temperature is warm. Musculoskeletal: Circulation, motion, and sensation intact. 23:45 Reassessment: Patient appears in no apparent distress at this time. Patient and/or jb4 family updated on plan of care and expected duration. Pain level reassessed. Pt appears more comfortable after being placed on bi-pap. respirations are even, unlabored, tachypneic. Pt reports a decrease in pain . Assisted provider with central line placement in the right groin. 02/15 01:00 Reassessment: Patient appears in no apparent distress at this time. Patient and/or rv family updated on plan of care and expected duration. Pain level reassessed. 02:30 Reassessment: [facility] updated on the testing of patient for Covid. rv 02:33 Reassessment: Patient appears in no apparent distress at this time. Patient and/or rv family updated on plan of care and expected duration. Pain level reassessed. Patient is alert, oriented x 3, equal unlabored respirations, skin warm/dry/pink. taken off from the bipap machine and hooked to oxygen mask. patient was comfortable and is stable, oxygen mask changed to nasal cannula. Covid testing done per protocol. 02:43 Reassessment: TRANSFER TO [facility] CANCELLED. rv 04:00 Reassessment: CALLED REPORT TO [facility]ABIL. PATIENT UPDATED ON THE PLAN OF CARE AND rv WAITING TIME. VITAL SIGNS ARE STABLE AT THIS TIME. GCS 15. 05:00 Reassessment: Patient appears in no apparent distress at this time. Patient and/or rv family updated on plan of care and expected duration. Pain level reassessed. Patient is alert, oriented x 3, equal unlabored respirations, skin warm/dry/pink. PATIENT IS ASLEEP AND VITAL SIGNS ARE STABLE AT THIS TIME. OXYGEN SATURATION MAINTAINED AT 96% AT 4LPM PER NC, WITH RESPIRATION AT 16 PER MINUTE. STILL AWAITING TRANSPORTATION. 06:40 Reassessment: PLACED SURGICAL MASK ON THE PATIENT PRIOR TO TRANSFER. REPORT GIVEN TO [facility] LEOPOLDO SINGH. Vital Signs: 02/14 22:36 BP 134 / 76; Pulse 105; Resp 26; Pulse Ox 98% on 15% Non-rebreather mask; Weight 83.91 lp1 kg (R); 02/15 00:12 Temp 102.5(A); ds4 01:15 BP 124 / 63; Pulse 94; Resp 17; Pulse Ox 96% on BiPAP; rv 01:30 BP 122 / 62; Pulse 96; Resp 17; Pulse Ox 94% on BiPAP; rv 02:00 BP 125 / 69; Pulse 98; Resp 21; Temp 99.1(O); Pulse Ox 96% on 3 lpm NC; rv 02:30 BP 125 / 68; Pulse 97; Resp 18; Pulse Ox 93% on 3 lpm NC; rv 03:00 BP 125 / 68; Pulse 95; Resp 16; Pulse Ox 95% on 4 lpm NC; rv 03:30 BP 131 / 72; Pulse 95; Resp 16; Pulse Ox 95% 4 lpm ; rv 05:35 BP 127 / 66; Pulse 91; Resp 13; Temp 99(O); Pulse Ox 96% on 4 lpm NC; rv 06:42 BP 136 / 62; Pulse 93; Resp 14; Temp 99; Pulse Ox 95% on 4 lpm NC; rv ED Course: 02/14 22:32 Patient arrived in ED. lp1 22:33 Kyrie Alas MD is Attending Physician. aleshia 22:39 Beto Bernard, SKYLAR is Primary Nurse. jb4 22:40 Triage completed. lp1 22:42 Patient has correct armband on for positive identification. 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 Pulse lp1 ox on. NIBP on. 23:32 XRAY Chest (1 view) In Process Unspecified. EDMS 23:45 Assisted provider with central line placement. Set up central line tray. Triple lumen jb4 line placed in right femoral. Line placed by Kyrie Alas MD Placement verified by blood return, Dressed with Tegaderm, Blood was collected. Patient tolerated well. 02/15 00:35 Urine Culture Sent. ds4 00:52 Urine Culture Sent. ds4 01:23 CT Chest Abdomen Pelvis W/O Contrast In Process Unspecified. EDMS 02:00 Patient placed Patient notified of wait time. rv 04:51 called [facility] they will have a truck available at 6 with a new crew. mw2 06:41 IV is patent, with fluids infusing freely, with good blood return, Patient transferred, rv IV remains in place. CENTRAL LINE. 09:40 Health Dept notified COVID test sent to lab/ PUI # [id number] / lab notified. eb Administered Medications: 02/14 22:58 Drug: Xopenex 3.75 mg {Note: administered via bi-pap per RT.} Route: Inhalation; jb4 22:58 Drug: AtroVENT Aerosol 0.5 mg {Note: Administered via bi-pap per RT.} Route: Inhalation;jb4 23:49 Drug: SOLU-Medrol 125 mg Route: IVP; Site: right femoral; jb4 02/15 02:36 Follow up: Response: No adverse reaction rv 02/14 23:50 Drug: Lasix 20 mg Route: IVP; Site: right femoral; jb4 02/15 02:35 Follow up: Response: No adverse reaction rv 02/14 23:51 Drug: Zofran (Ondansetron) 4 mg Route: IVP; Site: right femoral; jb4 02/15 02:35 Follow up: Response: No adverse reaction rv 02/14 23:54 Drug: morphine 2 mg Route: IVP; Site: right femoral; jb4 02/15 02:36 Follow up: Response: No adverse reaction; RASS: Drowsy (-1) rv 00:00 Drug: Rocephin 1 grams Route: IV; Rate: per protocol; Site: right femoral; jb4 02:35 Follow up: IV Status: Completed infusion rv 01:10 Drug: Tylenol Suppository 650 mg Route: NC; rv 02:35 Follow up: Response: No adverse reaction rv 01:21 Drug: vancoMYCIN 1 grams Route: IVPB; Infused Over: 2 hrs; Site: right antecubital; ls4 06:43 Follow up: IV Status: Completed infusion; IV Intake: 250ml rv 01:21 Drug: Meropenem 1 grams Route: IV; Rate: per protocol; Site: right femoral; ls4 02:35 Follow up: IV Status: Completed infusion rv 01:21 Drug: Magnesium Sulfate 2 grams Route: IVPB; Infused Over: 2 hrs; Site: right femoral; ls4 02:35 Follow up: IV Status: Completed infusion rv 04:30 Drug: Aspirin 162 mg Route: PO; rv 05:35 Follow up: Response: No adverse reaction rv 04:31 Drug: Lovenox 40 mg Route: Sub-Q; Site: abdomen; rv 05:35 Follow up: Response: No adverse reaction rv Intake: 06:43 IV: 250ml; Total: 250ml. rv Outcome: 00:08 ER care complete, transfer ordered by MD. monk 06:42 Transferred by ground EMS to [facility], Transfer form completed. X-rays sent rv w/ patient. 06:42 Condition: improved 06:42 Instructed on the need for transfer, Demonstrated understanding of instructions. 06:43 Patient left the ED. rv Addendum: 02/18/2020 12:58 Addendum: Other faxed COVID-19 swab results to [facility] at [address] at [phone]. 02/21/2020 09:34 Addendum: Culture Results: Positive blood culture. Phone call Attempt #1 Spoke with s s stenographer secretary at [facility] who reports that patient is no longer at facility. Signatures: Dispatcher [employer] Nevaeh Jimenez, RN RN dm5 Kyrie Alas MD MD cha Smirch, Shelby, RN RN ss Qi Polo RN RN lp1 Andres Waller ds4 Beto Bernard RN RN jb4 Timo Monteiro 2 Myranda Judge Ronaldo RN RN Blanca Appiah RN RN ls4 Corrections: (The following items were deleted from the chart) 02/15 00:59 02/14 23:10 Rocephin 1 grams IV at per protocol in right femoral 4 [facility] 02/15 01:23 02/14 22:58 AtroVENT Aerosol 0.5 mg Inhalation [place] [id number] 02/15 01:23 02/14 22:58 morphine 2 mg IVP in right femoral [place] [id number] 02/15 01:23 02/14 23:14 Lasix 20 mg IVP in right femoral 4 [facility] 02/15 01:23 02/14 23:10 Rocephin 1 grams IV at per protocol in right femoral 4 [facility] 02/15 01:24 02/14 22:58 Xopenex 3.75 mg Inhalation [place] [id number] 02/15 01:24 02/14 23:50 Response: No adverse reaction [place] [id number] 02/15 01:25 02/14 22:58 SOLU-Medrol 125 mg IVP in right femoral [place] [id number] 02/15 01:32 02/14 23:54 Lasix 20 mg IVP in right femoral 4 [facility] 02/15 01:34 02/14 23:10 Zofran (Ondansetron) 4 mg IVP in right femoral 4 [facility]
--- NOTE | 2020-02-16 00:09 | EDPHYS ---
Physician Documentation [facility] Name: Bob Santana Age: 54 yrs Sex: Male : 1965 Arrival Date: 02/15/2020 Time: 22:32 Bed 8 Private MD: ED Physician Kyrie Alas HPI: 02/14 22:37 This 54 yrs old Male presents to ER via Unassigned with complaints of chest aleshia pain and sob. 22:37 The patient has shortness of breath at rest, with light activity. Onset: The aleshia symptoms/episode began/occurred 3 day(s) ago. Duration: The symptoms are continuous, and are steadily getting worse. The patient's shortness of breath is aggravated by nothing, is alleviated by nothing. The patient or guardian reports chest pain that is located primarily in the anterior chest wall. Onset: 3 day(s) ago. The pain does not radiate. Associated signs and symptoms: The patient has no apparent associated signs or symptoms. Severity of symptoms: At their worst the symptoms were mild moderate in the emergency department the symptoms are unchanged. The chest pain is described as aching. Historical: - Allergies: 22:42 No Known Allergies; lp1 - Home Meds: 22:42 aspirin 81 mg Oral chew [Active]; buspirone 10 mg Oral tab 1 tab 3 times per day lp1 [Active]; carvedilol 3.125 mg Oral tab 1 tab 2 times per day [Active]; digoxin 250 mcg Oral tab 1 tab once daily [Active]; furosemide 40 mg Oral tab 1 tab 2 times per day [Active]; lisinopril 5 mg Oral tab 1 tab once daily [Active]; spironolactone 25 mg Oral tab 1 tab once daily [Active]; - PMHx: 22:42 cardiomegaly; CHF; COPD; Hepatitis; Hypertension; lp1 02/15 01:37 Cirrhosis; lp1 - PSHx: 02/14 22:42 None; lp1 - Immunization history:: Adult Immunizations up to date. - Social history:: Smoking status: Patient reports the use of cigarette tobacco products, smokes one-half pack cigarettes per day. - Family history:: not pertinent. ROS: 22:37 Constitutional: Negative for fever, chills, and weight loss, Eyes: Negative for injury, aleshia pain, redness, and discharge, ENT: Negative for injury, pain, and discharge, Neck: Negative for injury, pain, and swelling, Abdomen/GI: Negative for abdominal pain, nausea, vomiting, diarrhea, and constipation, Back: Negative for injury and pain, : Negative for injury, bleeding, discharge, and swelling, Skin: Negative for injury, rash, and discoloration, Neuro: Negative for headache, weakness, numbness, tingling, and seizure, Psych: Negative for depression, anxiety, suicide ideation, homicidal ideation, and hallucinations, Allergy/Immunology: Negative for hives, rash, and allergies, Endocrine: Negative for neck swelling, polydipsia, polyuria, polyphagia, and marked weight changes, Hematologic/Lymphatic: Negative for swollen nodes, abnormal bleeding, and unusual bruising. 22:37 Cardiovascular: Positive for chest pain. 22:37 Respiratory: Positive for shortness of breath. 22:37 MS/extremity: Positive for swelling, tenderness, of the right leg and left leg. Exam: 22:37 Constitutional: This is a well developed, well nourished patient who is awake, alert, aleshia and in no acute distress. Head/Face: Normocephalic, atraumatic. Eyes: Pupils equal round and reactive to light, extra-ocular motions intact. Lids and lashes normal. Conjunctiva and sclera are non-icteric and not injected. Cornea within normal limits. Periorbital areas with no swelling, redness, or edema. ENT: Nares patent. No nasal discharge, no septal abnormalities noted. Tympanic membranes are normal and external auditory canals are clear. Oropharynx with no redness, swelling, or masses, exudates, or evidence of obstruction, uvula midline. Mucous membranes moist. Neck: Trachea midline, no thyromegaly or masses palpated, and no cervical lymphadenopathy. Supple, full range of motion without nuchal rigidity, or vertebral point tenderness. No Meningismus. Chest/axilla: Normal chest wall appearance and motion. Nontender with no deformity. No lesions are appreciated. Back: No spinal tenderness. No costovertebral tenderness. Full range of motion. Skin: Warm, dry with normal turgor. Normal color with no rashes, no lesions, and no evidence of cellulitis. Neuro: Awake and alert, GCS 15, oriented to person, place, time, and situation. Cranial nerves II-XII grossly intact. Motor strength 5/5 in all extremities. Sensory grossly intact. Cerebellar exam normal. Normal gait. Psych: Awake, alert, with orientation to person, place and time. Behavior, mood, and affect are within normal limits. 22:37 Cardiovascular: Rate: tachycardic, Rhythm: regular, Pulses: Pulses are 4+ in bilateral radial, brachial, femoral, popliteal, posterior tibial and and dorsalis pedis arteries.. Heart sounds: normal, Edema: 4+ edema to level of left midcalf and right midcalf, JVD: is not appreciated. 22:37 Respiratory: mild respiratory distress is noted, Respirations: no acute changes, Breath sounds: decreased breath sounds, that are mild, rhonchi, that are mild. Vital Signs: 22:36 BP 134 / 76; Pulse 105; Resp 26; Pulse Ox 98% on 15% Non-rebreather mask; Weight 83.91 lp1 kg (R); 02/15 00:12 Temp 102.5(A); ds4 01:15 BP 124 / 63; Pulse 94; Resp 17; Pulse Ox 96% on BiPAP; rv 01:30 BP 122 / 62; Pulse 96; Resp 17; Pulse Ox 94% on BiPAP; rv 02:00 BP 125 / 69; Pulse 98; Resp 21; Temp 99.1(O); Pulse Ox 96% on 3 lpm NC; rv 02:30 BP 125 / 68; Pulse 97; Resp 18; Pulse Ox 93% on 3 lpm NC; rv 03:00 BP 125 / 68; Pulse 95; Resp 16; Pulse Ox 95% on 4 lpm NC; rv 03:30 BP 131 / 72; Pulse 95; Resp 16; Pulse Ox 95% 4 lpm ; rv 05:35 BP 127 / 66; Pulse 91; Resp 13; Temp 99(O); Pulse Ox 96% on 4 lpm NC; rv 06:42 BP 136 / 62; Pulse 93; Resp 14; Temp 99; Pulse Ox 95% on 4 lpm NC; rv Procedures: 03:41 Central Line: the site was prepped with Betadine, in sterile fashion, a triple lumen aleshia catheter was inserted, in the right femoral vein, in 1 attempts. placement was verified, by blood return, the site was dressed with using sterile technique, the patient tolerated the procedure, well. MDM: 02/14 22:33 Patient medically screened. [facility] 22:40 Data reviewed: vital signs, nurses notes, lab test result(s), EKG, radiologic studies, [facility] CT scan, plain films. 02/14 22:36 Order name: Basic Metabolic Panel; Complete Time: 00:01 [facility] 02/14 22:36 Order name: CBC with Diff [facility] 02/14 22:36 Order name: LFT's; Complete Time: 00:01 [facility] 02/14 22:36 Order name: Magnesium; Complete Time: 00:01 [facility] 02/14 22:36 Order name: NT PRO-BNP; Complete Time: 00:01 [facility] 02/14 22:36 Order name: PT-INR; Complete Time: 23:46 [facility] 02/14 22:36 Order name: Troponin (emerg Dept Use Only); Complete Time: 00:01 [facility] 02/14 22:37 Order name: AMMONIA; Complete Time: 23:47 [facility] 02/14 22:45 Order name: Digoxin; Complete Time: 00:14 [facility] 02/14 22:45 Order name: Lactate; Complete Time: 00:01 [facility] 02/14 22:45 Order name: Influenza Screen (a \T\ B) [facility] 02/14 22:45 Order name: Blood Culture Adult (2) [facility] 02/14 23:20 Order name: ABG Arterial Blood Gas; Complete Time: 23:46 EDMS 02/14 23:21 Order name: Misc. Lab Test [facility] 02/14 22:36 Order name: XRAY Chest (1 view) [facility] 02/14 22:36 Order name: BIPAP [facility] 02/14 23:48 Order name: CT Chest Abdomen Pelvis W/O Contrast [facility] 02/15 00:13 Order name: Urine Culture [facility] 02/15 00:14 Order name: Manual Differential; Complete Time: 00:35 EDMS 02/15 00:36 Order name: Urine Dipstick--Ancillary (enter results); Complete Time: 02:52 ds4 02/14 22:36 Order name: EKG; Complete Time: 22:36 [facility] 02/14 22:36 Order name: Cardiac monitoring; Complete Time: 00:52 [facility] 02/14 22:36 Order name: EKG - Nurse/Tech; Complete Time: 00:52 [facility] 02/14 22:36 Order name: IV Saline Lock; Complete Time: 00:52 [facility] 02/14 22:36 Order name: Labs collected and sent; Complete Time: 00:52 [facility] 02/14 22:36 Order name: O2 Per Protocol; Complete Time: 00:52 [facility] 02/14 22:36 Order name: O2 Sat Monitoring; Complete Time: 00:52 [facility] 02/14 23:21 Order name: consult [facility] 02/15 00:13 Order name: Urine Dipstick-Ancillary (obtain specimen); Complete Time: 00:35 [facility] Administered Medications: 22:58 Drug: Xopenex 3.75 mg {Note: administered via bi-pap per RT.} Route: Inhalation; [facility] 22:58 Drug: AtroVENT Aerosol 0.5 mg {Note: Administered via bi-pap per RT.} Route: Inhalation;[facility] 23:49 Drug: SOLU-Medrol 125 mg Route: IVP; Site: right femoral; [facility] 02/15 02:36 Follow up: Response: No adverse reaction rv 02/14 23:50 Drug: Lasix 20 mg Route: IVP; Site: right femoral; [facility] 02/15 02:35 Follow up: Response: No adverse reaction rv 02/14 23:51 Drug: Zofran (Ondansetron) 4 mg Route: IVP; Site: right femoral; 4 02/15 02:35 Follow up: Response: No adverse reaction rv 02/14 23:54 Drug: morphine 2 mg Route: IVP; Site: right femoral; [facility] 02/15 02:36 Follow up: Response: No adverse reaction; RASS: Drowsy (-1) rv 00:00 Drug: Rocephin 1 grams Route: IV; Rate: per protocol; Site: right femoral; jb4 02:35 Follow up: IV Status: Completed infusion rv 01:10 Drug: Tylenol Suppository 650 mg Route: MI; rv 02:35 Follow up: Response: No adverse reaction rv 01:21 Drug: vancoMYCIN 1 grams Route: IVPB; Infused Over: 2 hrs; Site: right antecubital; ls4 06:43 Follow up: IV Status: Completed infusion; IV Intake: 250ml rv 01:21 Drug: Meropenem 1 grams Route: IV; Rate: per protocol; Site: right femoral; ls4 02:35 Follow up: IV Status: Completed infusion rv 01:21 Drug: Magnesium Sulfate 2 grams Route: IVPB; Infused Over: 2 hrs; Site: right femoral; ls4 02:35 Follow up: IV Status: Completed infusion rv 04:30 Drug: Aspirin 162 mg Route: PO; rv 05:35 Follow up: Response: No adverse reaction rv 04:31 Drug: Lovenox 40 mg Route: Sub-Q; Site: abdomen; rv 05:35 Follow up: Response: No adverse reaction rv Disposition: 02/16/20 00:08 Transfer ordered to [facility]. Diagnosis are Chest pain, unspecified, Cardiomegaly, Pleural effusion in conditions classified elsewhere, Unspecified cirrhosis of liver, Edema, unspecified, Hypomagnesemia, Ascites, Fever, unspecified - 102.5, Dyspnea, Pneumonia due to other specified bacteria, Elevated white blood cell count. - Reason for transfer: Higher level of care. - Accepting physician is to [facility]. - Condition is Fair. - Problem is new. - Symptoms have improved. Signatures: Dispatcher [employer] EDMS Kyrie Alas MD MD cha Pena, Laura RN RN lp1 Beto Bernard RN RN jb4 Avery Hoover RN RN rv Blanca Appiah RN RN ls4 Corrections: (The following items were deleted from the chart) 00:09 00:08 02/16/2020 00:[address] [facility]. aleshia Diagnosis is Chest pain, unspecified; Cardiomegaly; Pleural effusion in conditions classified elsewhere; Unspecified cirrhosis of liver; Edema, unspecified; Hypomagnesemia; Ascites. Reason for transfer: Higher level of care. Accepting physician is to [facility]. Condition is Fair. Problem is new. Symptoms have improved. aleshia 00:12 00:09 02/16/2020 00:[address] [facility]. aleshia Diagnosis is Chest pain, unspecified; Cardiomegaly; Pleural effusion in conditions classified elsewhere; Unspecified cirrhosis of liver; Edema, unspecified; Hypomagnesemia; Ascites; Fever, unspecified; Dyspnea. Reason for transfer: Higher level of care. Accepting physician is to [facility]. Condition is Fair. Problem is new. Symptoms have improved. aleshia 00:14 00:12 02/16/2020 00:[address] [facility]. aleshia Diagnosis is Chest pain, unspecified; Cardiomegaly; Pleural effusion in conditions classified elsewhere; Unspecified cirrhosis of liver; Edema, unspecified; Hypomagnesemia; Ascites; Fever, unspecified - 102.5; Dyspnea; Pneumonia due to other specified bacteria. Reason for transfer: Higher level of care. Accepting physician is to [facility]. Condition is Fair. Problem is new. Symptoms have improved. aleshia 00:37 00:14 02/16/2020 00:[address] [facility]. [facility] Diagnosis is Chest pain, unspecified; Cardiomegaly; Pleural effusion in conditions classified elsewhere; Unspecified cirrhosis of liver; Edema, unspecified; Hypomagnesemia; Ascites; Fever, unspecified - 102.5; Dyspnea; Pneumonia due to other specified bacteria; Elevated white blood cell count. Reason for transfer: Higher level of care. Accepting physician is to [facility]. Condition is Fair. Problem is new. Symptoms have improved. aleshia 03:32 00:37 02/16/2020 00:08 Transfer ordered to [facility]. Diagnosis is Chest pain, aleshia unspecified; Cardiomegaly; Pleural effusion in conditions classified elsewhere; Unspecified cirrhosis of liver; Edema, unspecified; Hypomagnesemia; Ascites; Fever, unspecified - 102.5; Dyspnea; Pneumonia due to other specified bacteria; Elevated white blood cell count. Reason for transfer: Higher level of care. Accepting physician is to [facility]. Condition is Fair. Problem is new. Symptoms have improved. aleshia 06:43 03:32 02/16/2020 00:08 Transfer ordered to [facility]. Diagnosis is Chest rv pain, unspecified; Cardiomegaly; Pleural effusion in conditions classified elsewhere; Unspecified cirrhosis of liver; Edema, unspecified; Hypomagnesemia; Ascites; Fever, unspecified - 102.5; Dyspnea; Pneumonia due to other specified bacteria; Elevated white blood cell count. Reason for transfer: Higher level of care. Accepting physician is to [facility]. Condition is Fair. Problem is new. Symptoms have improved. aleshia
[2020-02-16 00:13] LABS: Blood Morphology Comment NOTED (NOT SEEN); Hypochromasia 1+; Platelet Estimate DECR
[2020-02-16 00:38] LABS: Urine Blood 2+ (NEG); Urine Glucose NEGATIVE (NEG); Urine Protein 2+ (NEG); Urine Specific Gravity 1.025 (1.005-1.030)
[2020-02-16] MEDS ORDERED: ACETAMINOPHEN 650MG/RECT SUPP PR ONE (01:03)
[2020-02-16] MEDS ORDERED: VANCOMYCIN 1 GM/VIAL ONE (01:08)
[2020-02-16] MEDS ORDERED: NA CHLORIDE 0.9% 100 ML IV ONE (01:08)
[2020-02-16] MEDS ORDERED: NA CHLORIDE 0.9% 250 ML ONE (01:08)
[2020-02-16] MEDS ORDERED: Magnesium Sulfate 2gm IVPB 2 G/50 ML BAG IV ONE (01:12)
[2020-02-16] MEDS ORDERED: ASPIRIN 81 MG CHEWABLE TABLET ONE (04:21)
[2020-02-16] MEDS ORDERED: ENOXAPARIN 40 MG/0.4 ML SQ ONE (04:21)
[2020-02-16 07:01] VITALS: TEMP 99
[2020-02-16 07:02] VITALS: BP 136/62; O2SAT 95
--- NOTE | 2020-02-16 08:59 | EKG ---
Test Date: 2020-02-15 Test Time: 22:33:30 [employer] Intercept Controller Supervisor: BRITTA MEASUREMENT RESULTS: Intervals: Rate: 107 CO: 208 QRSD: 174 QT: 508 QTc: 678 [place]: P: 41 CO: 208 QRS: -90 T: 80 INTERPRETIVE STATEMENTS: Sinus tachycardia Right bundle branch block Abnormal ECG Compared to ECG 11/12/2019 19:17:24 Left-axis deviation no longer present Myocardial infarct finding no longer present Electronically Signed On 02-16-20 08:57:35 CDT by Shane Quijano
--- NOTE | 2020-02-16 09:37 | RAD REPORT ---
EXAM DESCRIPTION: RAD - Chest Single View - 02/15/2020 11:32 pm CLINICAL HISTORY: Chest pain;COPD;Dyspnea COMPARISON: October 2019 portable TECHNIQUE: AP portable chest image was obtained 02/15/2020 11:32 pm . FINDINGS: Lungs are underinflated similar to comparison. Moderate right-sided pleural effusion is pr esent less than seen on the October study. Right base atelectasis is present. Infiltrate at the righ t base could be masked. Exam has motion degradation. Minimal left pleural effusion could be present a s well. Vasculature and lung markings are prominent. Cardiomegaly again noted. Trachea is midline. No pneumothorax. No acute bony abnormality seen. No acute aortic findings suspected. IMPRESSION: CHF/volume overload findings are present. Moderate right-sided pleural effusions smaller than seen in October imaging.
--- NOTE | 2020-02-16 21:12 | RAD REPORT ---
EXAM DESCRIPTION: CT - Chest Abd Pelvis Wo Con - 02/16/2020 6:07 am CLINICAL HISTORY: Abdominal distention;Cough;Dyspnea COMPARISON: 05/03/2019. TECHNIQUE: CT CHEST ABDOMEN PELVIS WITHOUT IV CONTRAST on 02/15/2020 11:48 PM CDT This exam was performed according to our departmental dose-optimization program, which includes autom ated exposure control, adjustment of the mA and/or kV according to patient size and/or use of iterati ve reconstruction technique. FINDINGS: Chest: The heart is grossly enlarged. There is no pericardial effusion. Intrathoracic lymp h nodes are not enlarged. Right femoral central venous catheter is present. There is a trace left pleural effusion. There is a moderate right pleural effusion. Central airways a re patent. There is extensive right greater than left basilar atelectasis with possible superimposed airspace disease. Abdomen: Liver is cirrhotic in morphology. There is no biliary dilatation. There are several small ga llstones in the gallbladder. There is mostly right upper quadrant ascites. The pancreas and spleen ar e normal in appearance. There are several punctate bilateral renal calculi without hydronephrosis. Th ere are bilateral fat-containing hernias. Abdominal aorta is normal in course and caliber without aneurysm. There is no free air. There is no r etroperitoneal adenopathy. Pelvis: There is mild thickening of much of the colon. Urinary bladder is unremarkable. There is smal l amount of free pelvic fluid. Appendix is normal. Skeleton: There are no acute osseous findings. No suspicious bony lesions. IMPRESSION: Pleural effusions with bibasilar presumed pneumonia. Bilateral nephrolithiasis without hydronephrosis. Hepatic cirrhosis with ascites. Electronically signed by: Cyrus López MD 02/16/2020 1:37 AM CDT Due to temporary technical issues with the PACS/Fluency reporting system, reports are being signed by the in house radiologist as a courtesy to ensure prompt reporting. The interpreting radiologist is f tasialy responsible for the content of the report.
== END 2020-02-16 06:43 | disposition short-term general hospital (02) ==
LOC: ER 22:27
PROC: 06HM33Z Insertion of Infusion Device into Right Femoral Vein, Percutaneous Approach (ICD-10-PCS; principal; 2020-02-15)
PROC: 5A09357 Assistance with Respiratory Ventilation, Less than 24 Consecutive Hours, Continuous Positive Airway Pressure (ICD-10-PCS; 2020-02-15)
DX: R07.9 Chest pain, unspecified (principal); J91.8 Pleural effusion in other conditions classified elsewhere; J15.8 Pneumonia due to other specified bacteria; K74.60 Unspecified cirrhosis of liver; D72.829 Elevated white blood cell count, unspecified; E83.42 Hypomagnesemia; R18.8 Other ascites; I51.7 Cardiomegaly; Z03.818 Encounter for observation for suspected exposure to other biological agents ruled out
CPT/HCPCS: 36556; 94660; 96365; 96367; 96368; 93005; 87040 ×2; 87088; 85025; 87086; 80048; 36415; 82140; 83735; 87205 ×2; 85610; 80162; 80076; 83605; 81003; 84484; 83880; 87804 ×2; 71250; 74176; 71045; 82805; 96375; 96372; 99285; 96366; U0001; J1940; J1650; J2270; J3475; J0696; J7030; J2930; J2405

== ENCOUNTER 2020-10-06 19:54 | Inpatient (IN) | payer OTHER ==
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
--- OUTSIDE RECORDS SUMMARY | 2020-10-06 19:57 | XMS REPORT | Continuity of Care Document ---
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 (test code = JOAQUIN Garcia [facility] 1538) [id number] POCT-GLUCOSE [id number] 21:54:00 Test Item Value Reference Range Interpretation Comments POC-GLUCOSE METER 194 mg/dL 70-110 H TESTED AT [place] [address] (BEAKER) (test code = JOAQUIN Garcia [facility] 1538) [address] POCT-GLUCOSE [id number] 18:07:00 Test Item Value Reference Range Interpretation Comments POC-GLUCOSE METER 140 mg/dL 70-110 H TESTED AT [place] [address] (BEAKER) (test code = [facility] Radha [facility] 1538) [address] POCT-GLUCOSE [id number] 11:33:00 Test Item Value Reference Range Interpretation Comments POC-GLUCOSE METER 202 mg/dL 70-110 H TESTED AT [place] [address] ([facility]) (test code = JOAQUIN Garcia [facility] 1538) [address] POCT-GLUCOSE [id number] 07:33:00 Test Item Value Reference Range Interpretation Comments POC-GLUCOSE METER 183 mg/dL 70-110 H TESTED AT [place] [address] (BEAKER) (test code = [facility] Radha [facility] 1538) [address] BASIC METABOLIC [id number] 05:24:00 Test Item Value Reference Range Interpretation Comments SODIUM (BEAKER) 134 meq/L 136-145 L (test code = 381) POTASSIUM (BEAKER) 3.5 meq/L 3.5-5.1 (test code = 379) CHLORIDE (BEAKER) 100 meq/L 98-107 (test code = 382) CO2 (BEAKER) (test 29 meq/L 22-29 code = 355) BLOOD UREA NITROGEN 13 mg/dL 7-21 (BEAKER) (test code = 354) CREATININE (BEAKER) 0.82 mg/dL 0.57-1.25 (test code = 358) GLUCOSE RANDOM 191 mg/dL 70-105 H (BEAKER) (test code = 652) CALCIUM (BEAKER) 7.3 mg/dL 8.4-10.2 L (test code = 697) EGFR (BEAKER) (test 98 mL/min/1.73 ESTIMA LISETTE GFR IS code = 1092) sq m NOT ACCURATE CREATININE CLEARANCE IN PREDICTING GLOMERULAR FILTRATION RATE . ESTIMATED GFR I S NOT APPLICABLE FOR DIALYSIS PATIEN TS. HEPATIC FUNCTION [id number] 05:22:00 Test Item Value Reference Range Interpretation Comments TOTAL PROTEIN (BEAKER) (test code = 5.7 gm/dL 6.0-8.3 L 770) ALBUMIN (BEAKER) (test code = 1145) 2.0 g/dL 3.5-5.0 L BILIRUBIN TOTAL (BEAKER) (test code 1.9 mg/dL 0.2-1.2 H = 377) BILIRUBIN DIRECT (BEAKER) (test 1.3 mg/dL 0.1-0.5 H code = 706) ALKALINE PHOSPHATASE (BEAKER) (test 74 U/L 40-150 code = 346) AST (SGOT) (BEAKER) (test code = 106 U/L 5-34 H 353) ALT (SGPT) (BEAKER) (test code = 61 U/L 6-55 H 347) CALCIUM, [id number] 04:52:00 Test Item Value Reference Range Interpretation Comments CALCIUM IONIZED (BEAKER) (test 1.06 mmol/L 1.12-1.27 L code = 698) PH, BLOOD (BEAKER) (test code = 7.53 1810) [id number] 04:15:00 Test Item Value Reference Range Interpretation Comments MAGNESIUM (BEAKER) 2.1 mg/dL 1.6-2.6 Specimen moderately (test code = 627) hemolyzed [id number] 04:15:00 Test Item Value Reference Range Interpretation Comments PHOSPHORUS (BEAKER) 3.2 mg/dL 2.3-4.7 Specimen moderately (test code = 604) hemolyzed CBC W/PLT COUNT & AUTO [id number] 03:52:00 Test Item Value Reference Range Interpretation Comments WHITE BLOOD CELL COUNT (BEAKER) 6.7 K/ L 3.5-10.5 (test code = 775) RED BLOOD CELL COUNT (BEAKER) 3.58 M/ L 4.63-6.08 L (test code = 761) HEMOGLOBIN (BEAKER) (test code = 11.1 GM/DL 13.7-17.5 L 410) HEMATOCRIT (BEAKER) (test code = 32.6 % 40.1-51.0 L 411) MEAN CORPUSCULAR VOLUME (BEAKER) 91.1 fL 79.0-92.2 (test code = 753) MEAN CORPUSCULAR HEMOGLOBIN 31.0 pg 25.7-32.2 (BEAKER) (test code = 751) MEAN CORPUSCULAR HEMOGLOBIN CONC 34.0 GM/DL 32.3-36.5 (BEAKER) (test code = 752) RED CELL DISTRIBUTION WIDTH 17.0 % 11.6-14.4 H (BEAKER) (test code = 412) PLATELET COUNT (BEAKER) (test 124 K/CU MM 150-450 L code = 756) MEAN PLATELET VOLUME (BEAKER) 12.2 fL 9.4-12.4 (test code = 754) NUCLEATED RED BLOOD CELLS 0 /100 WBC 0-0 (BEAKER) (test code = 413) NEUTROPHILS RELATIVE PERCENT 54 % (BEAKER) (test code = 429) LYMPHOCYTES RELATIVE PERCENT 33 % (BEAKER) (test code = 430) MONOCYTES RELATIVE PERCENT 9 % (BEAKER) (test code = 431) EOSINOPHILS RELATIVE PERCENT 3 % (BEAKER) (test code = 432) BASOPHILS RELATIVE PERCENT 1 % (BEAKER) (test code = 437) NEUTROPHILS ABSOLUTE COUNT 3.60 K/ L 1.78-5.38 (BEAKER) (test code = 670) LYMPHOCYTES ABSOLUTE COUNT 2.24 K/ L 1.32-3.57 (BEAKER) (test code = 414) MONOCYTES ABSOLUTE COUNT (BEAKER) 0.59 K/ L 0.30-0.82 (test code = 415) EOSINOPHILS ABSOLUTE COUNT 0.18 K/ L 0.04-0.54 (BEAKER) (test code = 416) BASOPHILS ABSOLUTE COUNT (BEAKER) 0.04 K/ L 0.01-0.08 (test code = 417) IMMATURE GRANULOCYTES-RELATIVE 1 % 0-1 PERCENT (BEAKER) (test code = 2801) POCT-GLUCOSE [id number] 21:58:00 Test Item Value Reference Range Interpretation Comments POC-GLUCOSE METER 250 mg/dL 70-110 H TESTED AT [facility] 6720 (BEAKER) (test code = JOAQUIN BARAJAS 1538) [id number] 20:39:00 Test Item Value Reference Range Interpretation Comments MAGNESIUM (BEAKER) 1.6 mg/dL 1.6-2.6 Specimen slightly (test code = 627) hemolyzed [id number] 20:39:00 Test Item Value Reference Range Interpretation Comments POTASSIUM (BEAKER) 3.9 meq/L 3.5-5.1 Specimen slightly (test code = 379) hemolyzed POCT-GLUCOSE [id number] 17:48:00 Test Item Value Reference Range Interpretation Comments POC-GLUCOSE METER 96 mg/dL 70-110 TESTED AT [facility] 6720 (ELIZABETH) (test code = JOAQUIN Garcia [facility] [address] 1538) POCT-GLUCOSE [id number] 11:14:00 Test Item Value Reference Range Interpretation Comments POC-GLUCOSE METER 317 mg/dL 70-110 H Notified R Maggie FERGUSON/TESTED (ELIZABETH) (test code = AT [facility] [address] [facility] 1538) [facility] 7703 0 RAD, CHEST, 1 VIEW, NON [id number] 09:39:00Reason for exam:->sobShould this be performed at [...] MDReport Verified Date/Time: 05/10/2019 09:39:51 Reading Location: [facility] Radiology Reading Room BASIC METABOLIC [id number] 05:28:00 Test Item Value Reference Range Interpretation Comments SODIUM (BEAKER) 133 meq/L 136-145 L (test code = 381) POTASSIUM (BEAKER) 3.6 meq/L 3.5-5.1 (test code = 379) CHLORIDE (BEAKER) 100 meq/L 98-107 (test code = 382) CO2 (BEAKER) (test 28 meq/L 22-29 code = 355) BLOOD UREA NITROGEN 13 mg/dL 7-21 (BEAKER) (test code = 354) CREATININE (BEAKER) 0.83 mg/dL 0.57-1.25 (test code = 358) GLUCOSE RANDOM 190 mg/dL 70-105 H (BEAKER) (test code = 652) CALCIUM (BEAKER) 7.2 mg/dL 8.4-10.2 L (test code = 697) EGFR (BEAKER) (test 96 mL/min/1.73 ESTIMA LISETTE GFR IS code = 1092) sq m NOT ACCURATE CREATININE CLEARANCE IN PREDICTING GLOMERULAR FILTRATION RATE . ESTIMATED GFR I S NOT APPLICABLE FOR DIALYSIS PATIEN TS. [id number] 05:24:00 Test Item Value Reference Range Interpretation Comments PHOSPHORUS (BEAKER) (test code = 2.7 mg/dL 2.3-4.7 604) [id number] 05:24:00 Test Item Value Reference Range Interpretation Comments MAGNESIUM (BEAKER) (test code = 1.8 mg/dL 1.6-2.6 627) HEPATIC FUNCTION [id number] 05:24:00 Test Item Value Reference Range Interpretation Comments TOTAL PROTEIN (BEAKER) (test code = 5.8 gm/dL 6.0-8.3 L 770) ALBUMIN (BEAKER) (test code = 1145) 2.0 g/dL 3.5-5.0 L BILIRUBIN TOTAL (BEAKER) (test code 1.8 mg/dL 0.2-1.2 H = 377) BILIRUBIN DIRECT (BEAKER) (test 1.2 mg/dL 0.1-0.5 H code = 706) ALKALINE PHOSPHATASE (BEAKER) (test 74 U/L 40-150 code = 346) AST (SGOT) (BEAKER) (test code = 107 U/L 5-34 H 353) ALT (SGPT) (BEAKER) (test code = 66 U/L 6-55 H 347) CBC W/PLT COUNT & AUTO [id number] 04:46:00 Test Item Value Reference Range Interpretation Comments WHITE BLOOD CELL COUNT (BEAKER) 7.7 K/ L 3.5-10.5 (test code = 775) RED BLOOD CELL COUNT (BEAKER) 3.76 M/ L 4.63-6.08 L (test code = 761) HEMOGLOBIN (BEAKER) (test code = 11.8 GM/DL 13.7-17.5 L 410) HEMATOCRIT (BEAKER) (test code = 34.8 % 40.1-51.0 L 411) MEAN CORPUSCULAR VOLUME (BEAKER) 92.6 fL 79.0-92.2 H (test code = 753) MEAN CORPUSCULAR HEMOGLOBIN 31.4 pg 25.7-32.2 (BEAKER) (test code = 751) MEAN CORPUSCULAR HEMOGLOBIN CONC 33.9 GM/DL 32.3-36.5 (BEAKER) (test code = 752) RED CELL DISTRIBUTION WIDTH 16.8 % 11.6-14.4 H (BEAKER) (test code = 412) PLATELET COUNT (BEAKER) (test 187 K/CU MM 150-450 code = 756) MEAN PLATELET VOLUME (BEAKER) 11.1 fL 9.4-12.4 (test code = 754) NUCLEATED RED BLOOD CELLS 0 /100 WBC 0-0 (BEAKER) (test code = 413) NEUTROPHILS RELATIVE PERCENT 65 % (BEAKER) (test code = 429) LYMPHOCYTES RELATIVE PERCENT 24 % (BEAKER) (test code = 430) MONOCYTES RELATIVE PERCENT 7 % (BEAKER) (test code = 431) EOSINOPHILS RELATIVE PERCENT 2 % (BEAKER) (test code = 432) BASOPHILS RELATIVE PERCENT 0 % (BEAKER) (test code = 437) NEUTROPHILS ABSOLUTE COUNT 4.98 K/ L 1.78-5.38 (BEAKER) (test code = 670) LYMPHOCYTES ABSOLUTE COUNT 1.87 K/ L 1.32-3.57 (BEAKER) (test code = 414) MONOCYTES ABSOLUTE COUNT (BEAKER) 0.56 K/ L 0.30-0.82 (test code = 415) EOSINOPHILS ABSOLUTE COUNT 0.16 K/ L 0.04-0.54 (BEAKER) (test code = 416) BASOPHILS ABSOLUTE COUNT (BEAKER) 0.03 K/ L 0.01-0.08 (test code = 417) IMMATURE GRANULOCYTES-RELATIVE 1 % 0-1 PERCENT (BEAKER) (test code = 2801) POCT-GLUCOSE [id number] 22:14:00 Test Item Value Reference Range Interpretation Comments POC-GLUCOSE METER 159 mg/dL 70-110 H TESTED AT [place] [address] (BEAKER) (test code = JOAQUIN Garcia [facility] 1538) [id number] 21:52:00 Test Item Value Reference Range Interpretation Comments MAGNESIUM (BEAKER) 1.5 mg/dL 1.6-2.6 L Specimen slightly (test code = 627) hemolyzed [id number] 21:52:00 Test Item Value Reference Range Interpretation Comments PHOSPHORUS (BEAKER) 2.9 mg/dL 2.3-4.7 Specimen slightly (test code = 604) hemolyzed [id number] 21:52:00 Test Item Value Reference Range Interpretation Comments POTASSIUM (BEAKER) 3.6 meq/L 3.5-5.1 Specimen slightly (test code = 379) hemolyzed POCT-GLUCOSE [id number] 18:30:00 Test Item Value Reference Range Interpretation Comments POC-GLUCOSE METER 150 mg/dL 70-110 H TESTED AT [place] [address] (BEAKER) (test code = JOAQUIN Garcia [facility] 1538) [id number] POCT-GLUCOSE [id number] 12:14:00 Test Item Value Reference Range Interpretation Comments POC-GLUCOSE METER 229 mg/dL 70-110 H TESTED AT [place] [address] (BEAKER) (test code = JOAQUIN Garcia [facility] 1538) [address] POCT-GLUCOSE [id number] 07:18:00 Test Item Value Reference Range Interpretation Comments POC-GLUCOSE METER 111 mg/dL 70-110 H TESTED AT [place] [address] (BEAKER) (test code = JOAQUIN Garcia [facility] 1538) [address] BASIC METABOLIC [id number] 05:43:00 Test Item Value Reference Range Interpretation Comments SODIUM (BEAKER) 136 meq/L 136-145 (test code = 381) POTASSIUM (BEAKER) 3.4 meq/L 3.5-5.1 L (test code = 379) CHLORIDE (BEAKER) 102 meq/L 98-107 (test code = 382) CO2 (BEAKER) (test 29 meq/L 22-29 code = 355) BLOOD UREA NITROGEN 15 mg/dL 7-21 (BEAKER) (test code = 354) CREATININE (BEAKER) 0.75 mg/dL 0.57-1.25 (test code = 358) GLUCOSE RANDOM 139 mg/dL 70-105 H (BEAKER) (test code = 652) CALCIUM (BEAKER) 7.4 mg/dL 8.4-10.2 L (test code = 697) EGFR (BEAKER) (test 108 mL/min/1.73 ESTIM ATED GFR IS code = 1092) sq m NOT ACCURATE CREATININE CLEARANCE IN PREDICTING GLOMERULAR FILTRATION RATE . ESTIMATED GFR I S NOT APPLICABLE FOR DIALYSIS PATIEN TS. [id number] 05:40:00 Test Item Value Reference Range Interpretation Comments PHOSPHORUS (BEAKER) (test code = 3.1 mg/dL 2.3-4.7 604) [id number] 05:40:00 Test Item Value Reference Range Interpretation Comments MAGNESIUM (BEAKER) (test code = 1.9 mg/dL 1.6-2.6 627) HEPATIC FUNCTION [id number] 05:40:00 Test Item Value Reference Range Interpretation Comments TOTAL PROTEIN (BEAKER) (test code = 6.2 gm/dL 6.0-8.3 770) ALBUMIN (BEAKER) (test code = 1145) 2.3 g/dL 3.5-5.0 L BILIRUBIN TOTAL (BEAKER) (test code 2.0 mg/dL 0.2-1.2 H = 377) BILIRUBIN DIRECT (BEAKER) (test 1.3 mg/dL 0.1-0.5 H code = 706) ALKALINE PHOSPHATASE (BEAKER) (test 69 U/L 40-150 code = 346) AST (SGOT) (BEAKER) (test code = 116 U/L 5-34 H 353) ALT (SGPT) (BEAKER) (test code = 73 U/L 6-55 H 347) CBC (HEMOGRAM ONLY)2019-05-09 05:08:00 Test Item Value Reference Range Interpretation Comments WHITE BLOOD CELL COUNT (BEAKER) 7.2 K/ L 3.5-10.5 (test code = 775) RED BLOOD CELL COUNT (BEAKER) 3.99 M/ L 4.63-6.08 L (test code = 761) HEMOGLOBIN (BEAKER) (test code = 12.3 GM/DL 13.7-17.5 L 410) HEMATOCRIT (BEAKER) (test code = 36.9 % 40.1-51.0 L 411) MEAN CORPUSCULAR VOLUME (BEAKER) 92.5 fL 79.0-92.2 H (test code = 753) MEAN CORPUSCULAR HEMOGLOBIN 30.8 pg 25.7-32.2 (BEAKER) (test code = 751) MEAN CORPUSCULAR HEMOGLOBIN CONC 33.3 GM/DL 32.3-36.5 (BEAKER) (test code = 752) RED CELL DISTRIBUTION WIDTH 16.5 % 11.6-14.4 H (BEAKER) (test code = 412) PLATELET COUNT (BEAKER) (test 197 K/CU MM 150-450 code = 756) MEAN PLATELET VOLUME (BEAKER) 11.3 fL 9.4-12.4 (test code = 754) NUCLEATED RED BLOOD CELLS 0 /100 WBC 0-0 (BEAKER) (test code = 413) POCT-GLUCOSE [id number] 23:52:00 Test Item Value Reference Range Interpretation Comments POC-GLUCOSE METER 281 mg/dL 70-110 H TESTED AT [place] [address] ([facility]) (test code = JOAQUIN [place] 1538) [address] POCT-GLUCOSE [id number] 13:10:00 Test Item Value Reference Range Interpretation Comments POC-GLUCOSE METER 174 mg/dL 70-110 H TESTED AT [place] [address] (BEAKER) (test code = JOAQUIN [place] 1538) [id number] POCT-GLUCOSE [id number] 08:09:00 Test Item Value Reference Range Interpretation Comments POC-GLUCOSE METER 185 mg/dL 70-110 H TESTED AT [place] [address] ([facility]) (test code = JOAQUIN [place] 1538) [address] BASIC METABOLIC [id number] 04:58:00 Test Item Value Reference Range Interpretation Comments SODIUM (BEAKER) 136 meq/L 136-145 (test code = 381) POTASSIUM (BEAKER) 3.5 meq/L 3.5-5.1 (test code = 379) CHLORIDE (BEAKER) 104 meq/L 98-107 (test code = 382) CO2 (BEAKER) (test 26 meq/L 22-29 code = 355) BLOOD UREA NITROGEN 18 mg/dL 7-21 (BEAKER) (test code = 354) CREATININE (BEAKER) 0.65 mg/dL 0.57-1.25 (test code = 358) GLUCOSE RANDOM 117 mg/dL 70-105 H (BEAKER) (test code = 652) CALCIUM (BEAKER) 7.7 mg/dL 8.4-10.2 L (test code = 697) EGFR (BEAKER) (test 128 mL/min/1.73 ESTIM ATED GFR IS code = 1092) sq m NOT ACCURATE CREATININE CLEARANCE IN PREDICTING GLOMERULAR FILTRATION RATE . ESTIMATED GFR I S NOT APPLICABLE FOR DIALYSIS PATIEN TS. [id number] 04:51:00 Test Item Value Reference Range Interpretation Comments PHOSPHORUS (BEAKER) (test code = 2.6 mg/dL 2.3-4.7 604) [id number] 04:51:00 Test Item Value Reference Range Interpretation Comments MAGNESIUM (BEAKER) (test code = 1.4 mg/dL 1.6-2.6 L 627) HEPATIC FUNCTION [id number] 04:51:00 Test Item Value Reference Range Interpretation Comments TOTAL PROTEIN (BEAKER) (test code = 6.0 gm/dL 6.0-8.3 770) ALBUMIN (BEAKER) (test code = 1145) 2.3 g/dL 3.5-5.0 L BILIRUBIN TOTAL (BEAKER) (test code 1.8 mg/dL 0.2-1.2 H = 377) BILIRUBIN DIRECT (BEAKER) (test 1.1 mg/dL 0.1-0.5 H code = 706) ALKALINE PHOSPHATASE (BEAKER) (test 63 U/L 40-150 code = 346) AST (SGOT) (BEAKER) (test code = 183 U/L 5-34 H 353) ALT (SGPT) (BEAKER) (test code = 95 U/L 6-55 H 347) CBC (HEMOGRAM ONLY)2019-05-08 04:22:00 Test Item Value Reference Range Interpretation Comments WHITE BLOOD CELL COUNT (BEAKER) 8.5 K/ L 3.5-10.5 (test code = 775) RED BLOOD CELL COUNT (BEAKER) 3.80 M/ L 4.63-6.08 L (test code = 761) HEMOGLOBIN (BEAKER) (test code = 11.9 GM/DL 13.7-17.5 L 410) HEMATOCRIT (BEAKER) (test code = 35.3 % 40.1-51.0 L 411) MEAN CORPUSCULAR VOLUME (BEAKER) 92.9 fL 79.0-92.2 H (test code = 753) MEAN CORPUSCULAR HEMOGLOBIN 31.3 pg 25.7-32.2 (BEAKER) (test code = 751) MEAN CORPUSCULAR HEMOGLOBIN CONC 33.7 GM/DL 32.3-36.5 (BEAKER) (test code = 752) RED CELL DISTRIBUTION WIDTH 16.4 % 11.6-14.4 H (BEAKER) (test code = 412) PLATELET COUNT (BEAKER) (test 200 K/CU MM 150-450 code = 756) MEAN PLATELET VOLUME (BEAKER) 11.6 fL 9.4-12.4 (test code = 754) NUCLEATED RED BLOOD CELLS 0 /100 WBC 0-0 ([facility]) (test code = 413) VANCOMYCIN LEVEL, [id number] 00:32:00 Test Item Value Reference Range Interpretation Comments VANCOMYCIN TROUGH ([facility]) (test 16.4 ug/mL 10.0-20.0 code = 522) Please draw 30 minutes before 3rd doseIf vancomycin trough level > 20 mcg/mL, hold next vancomycin dose, and contact MD and pharmacist.POCT-GLUCOSE METER 2019-05-07 21:39:00 Test Item Value Reference Range Interpretation Comments POC-GLUCOSE METER 255 mg/dL 70-110 H TESTED AT [place] [address] ([facility]) (test code = JOAQUIN Garcia [facility] 1538) [id number] POCT-GLUCOSE [id number] 18:25:00 Test Item Value Reference Range Interpretation Comments POC-GLUCOSE METER 164 mg/dL 70-110 H TESTED AT [place] [address] ([facility]) (test code = JOAQUIN Garcia [facility] 1538) [id number] POCT-GLUCOSE [id number] 12:10:00 Test Item Value Reference Range Interpretation Comments POC-GLUCOSE METER 129 mg/dL 70-110 H TESTED AT [place] [address] ([facility]) (test code = JOAQUIN Garcia [facility] 1538) [address] POCT-GLUCOSE [id number] 08:50:00 Test Item Value Reference Range Interpretation Comments POC-GLUCOSE METER 147 mg/dL 70-110 H TESTED AT [facility] 6720 (BEAKER) (test code = JOAQUIN [place] 1538) [address] BASIC METABOLIC [id number] 06:39:00 Test Item Value Reference Range Interpretation Comments SODIUM (BEAKER) 135 meq/L 136-145 L (test code = 381) POTASSIUM (BEAKER) 4.1 meq/L 3.5-5.1 (test code = 379) CHLORIDE (BEAKER) 105 meq/L 98-107 (test code = 382) CO2 (BEAKER) (test 26 meq/L 22-29 code = 355) BLOOD UREA NITROGEN 20 mg/dL 7-21 (BEAKER) (test code = 354) CREATININE (BEAKER) 0.78 mg/dL 0.57-1.25 (test code = 358) GLUCOSE RANDOM 153 mg/dL 70-105 H (BEAKER) (test code = 652) CALCIUM (BEAKER) 7.5 mg/dL 8.4-10.2 L (test code = 697) EGFR (BEAKER) (test 103 mL/min/1.73 ESTIM ATED GFR IS code = 1092) sq m NOT ACCURATE CREATININE CLEARANCE IN PREDICTING GLOMERULAR FILTRATION RATE . ESTIMATED GFR I S NOT APPLICABLE FOR DIALYSIS PATIEN TS. [id number] 06:36:00 Test Item Value Reference Range Interpretation Comments PHOSPHORUS (BEAKER) (test code = 2.9 mg/dL 2.3-4.7 604) [id number] 06:36:00 Test Item Value Reference Range Interpretation Comments MAGNESIUM (BEAKER) (test code = 1.8 mg/dL 1.6-2.6 627) HEPATIC FUNCTION [id number] 06:36:00 Test Item Value Reference Range Interpretation Comments TOTAL PROTEIN (BEAKER) (test code = 5.7 gm/dL 6.0-8.3 L 770) ALBUMIN (BEAKER) (test code = 1145) 2.2 g/dL 3.5-5.0 L BILIRUBIN TOTAL (BEAKER) (test code 1.9 mg/dL 0.2-1.2 H = 377) BILIRUBIN DIRECT (BEAKER) (test 1.2 mg/dL 0.1-0.5 H code = 706) ALKALINE PHOSPHATASE (BEAKER) (test 59 U/L 40-150 code = 346) AST (SGOT) (BEAKER) (test code = 195 U/L 5-34 H 353) ALT (SGPT) (BEAKER) (test code = 87 U/L 6-55 H 347) [id number] 05:03:00 Test Item Value Reference Range Interpretation Comments PROTIME (BEAKER) (test code = 16.2 seconds 11.9-14.2 H 759) INR (BEAKER) (test code = 370) 1.4 <=5.9 PARTIAL THROMBOPLASTIN TIME 32.0 seconds 22.5-36.0 (BEAKER) (test code = 760) Effective 04/24/2019: PT Reference Range ChangeNew: 11.9-14.2 Previous: 11.7- 14.7RECOMMENDED COUMADIN/WARFARIN INR THERAPY RANGESSTANDARD DOSE: 2.0-3.0 Includes: PROPHYLAXIS for venous thrombosis, systemic embolization; TREATMENT for venous thrombosis and/or pulmonary embolus.HIGH RISK: Target INR is2.5-3.5 for patients wiht mechanical heart valves.CBC (HEMOGRAM ONLY)2019-05-07 04:58:00 Test Item Value Reference Range Interpretation Comments WHITE BLOOD CELL COUNT (BEAKER) 9.5 K/ L 3.5-10.5 (test code = 775) RED BLOOD CELL COUNT (BEAKER) 3.74 M/ L 4.63-6.08 L (test code = 761) HEMOGLOBIN (BEAKER) (test code = 11.7 GM/DL 13.7-17.5 L 410) HEMATOCRIT (BEAKER) (test code = 35.1 % 40.1-51.0 L 411) MEAN CORPUSCULAR VOLUME (BEAKER) 93.9 fL 79.0-92.2 H (test code = 753) MEAN CORPUSCULAR HEMOGLOBIN 31.3 pg 25.7-32.2 (BEAKER) (test code = 751) MEAN CORPUSCULAR HEMOGLOBIN CONC 33.3 GM/DL 32.3-36.5 (BEAKER) (test code = 752) RED CELL DISTRIBUTION WIDTH 16.2 % 11.6-14.4 H (BEAKER) (test code = 412) PLATELET COUNT (BEAKER) (test 200 K/CU MM 150-450 code = 756) MEAN PLATELET VOLUME (BEAKER) 12.2 fL 9.4-12.4 (test code = 754) NUCLEATED RED BLOOD CELLS 0 /100 WBC 0-0 (BEAKER) (test code = 413) POCT-GLUCOSE [id number] 00:04:00 Test Item Value Reference Range Interpretation Comments POC-GLUCOSE METER 263 mg/dL 70-110 H TESTED AT [facility] [address] ([facility] (test code = JOAQUIN Garcia [place] 1538) [address] POCT-GLUCOSE [id number] 18:29:00 Test Item Value Reference Range Interpretation Comments POC-GLUCOSE METER 125 mg/dL 70-110 H TESTED AT [facility] 67[address] ([facility]) (test code = [facility] Radha [place] 1538) [address] BODY FLUID [id number] 15:37:00 Test Item Value Reference Range Interpretation Comments CRYSTALS, BODY FLUID No crystals seen. (BEAKER) (test code = 2165) [id number] Myranda Young MD (BEAKER) (test code = (electronic signature) 6835) BASIC METABOLIC [id number] 13:20:00 Test Item Value Reference Range Interpretation Comments SODIUM (BEAKER) 132 meq/L 136-145 L (test code = 381) POTASSIUM (BEAKER) 4.2 meq/L 3.5-5.1 Specimen slightly (test code = 379) hemolyzed CHLORIDE (BEAKER) 106 meq/L 98-107 (test code = 382) CO2 (BEAKER) (test 21 meq/L 22-29 L code = 355) BLOOD UREA NITROGEN 20 mg/dL 7-21 (BEAKER) (test code = 354) CREATININE (BEAKER) 0.68 mg/dL 0.57-1.25 Specimen slightly (test code = 358) hemolyzed GLUCOSE RANDOM 106 mg/dL 70-105 H (BEAKER) (test code = 652) CALCIUM (BEAKER) 7.3 mg/dL 8.4-10.2 L (test code = 697) EGFR (BEAKER) (test 121 mL/min/1.73 ESTIM ATED GFR IS code = 1092) sq m NOT ACCURATE CREATININE CLEARANCE IN PREDICTING GLOMERULAR FILTRATION RATE . ESTIMATED GFR I S NOT APPLICABLE FOR DIALYSIS PATIEN TS. Specimen slightly [id number] 13:18:00 Test Item Value Reference Range Interpretation Comments MAGNESIUM (BEAKER) 1.8 mg/dL 1.6-2.6 Specimen slightly (test code = 627) hemolyzed [id number] 13:18:00 Test Item Value Reference Range Interpretation Comments PHOSPHORUS (BEAKER) 2.7 mg/dL 2.3-4.7 Specimen slightly (test code = 604) hemolyzed HEPATIC FUNCTION [id number] 13:18:00 Test Item Value Reference Range Interpretation Comments TOTAL PROTEIN (BEAKER) 5.6 gm/dL 6.0-8.3 L Speci men slightly (test code = 770) hemolyzed ALBUMIN (BEAKER) (test 2.2 g/dL 3.5-5.0 L Speci men slightly code = 1145) hemolyzed BILIRUBIN TOTAL 2.7 mg/dL 0.2-1.2 H Specimen sli ghtly (BEAKER) (test code = hemoly zed 377) BILIRUBIN DIRECT 1.2 mg/dL 0.1-0.5 H Specimen sl ightly (BEAKER) (test code = hemoly zed 706) ALKALINE PHOSPHATASE 60 U/L 40-150 (BEAKER) (test code = 346) AST (SGOT) (BEAKER) 223 U/L 5-34 H Specimen slightly (test code = 353) hemolyzed ALT (SGPT) (BEAKER) 83 U/L 6-55 H Specimen slightly (test code = 347) hemolyzed Specimen slightly ictericPOCT-GLUCOSE [id number] 12:55:00 Test Item Value Reference Range Interpretation Comments POC-GLUCOSE METER 117 mg/dL 70-110 H TESTED AT [facility] [address] (BEAKER) (test code = JOAQUIN BARAJAS 1538) [address] VANCOMYCIN LEVEL, [id number] 12:14:00 Test Item Value Reference Range Interpretation Comments VANCOMYCIN TROUGH (BEAKER) (test 10.0 ug/mL 10.0-20.0 code = 522) POCT-GLUCOSE [id number] 06:26:00 Test Item Value Reference Range Interpretation Comments POC-GLUCOSE METER 121 mg/dL 70-110 H TESTED AT [place] [address] ([facility]) (test code = JOAQUIN Garcia [facility] 1538) [address] RAPID DRUG SCREEN, [id number] 04:06:00 Test Item Value Reference Range Interpretation Comments BARBITURATE URINE (BEAKER) (test Negative Negative code = 725) BENZODIAZEPINE SCREEN URINE (BEAKER) Negative Negative (test code = 726) COCAINE (METAB.) SCREEN (BEAKER) Negative Negative (test code = 1164) METHADONE SCREEN (BEAKER) (test code Negative Negative = 1436) OPIATE SCREEN URINE (BEAKER) (test Positive Negative A code = 734) CANNABINOID SCREEN URINE (BEAKER) Negative Negative (test code = 727) AMPH/METHAMPH SCREEN (BEAKER) (test Positive Negative A code = 1438) PHENCYCLIDINE SCREEN URINE (BEAKER) Negative Negative (test code = 608) DRUG CUTOFF CONC.Cocaine 300 ng/mL Cannabinoid 50 ng/mLBenzodiazepine 200 ng/mLBarbiturate 200 ng/mLPhencyclidine 25 ng/mLOpiate 300 ng/mLMethadone 300 ng/mLAmphetamine/ 1000 ng/mL MethamphetamineThis assay provides an unconfirmed qualitative test result for the clinical management of patients in emergency situations. Chain of custody not maintained. Some bmgy-twl-ocgrfpa medications, as well as adulterants, may cause inaccurate results. Clinical correlation should be applied. A more comprehensivedrug screen or confirmation of a detected drug may be performed upon request.POCT-GLUCOSE [id number] 00:34:00 Test Item Value Reference Range Interpretation Comments POC-GLUCOSE METER 171 mg/dL 70-110 H TESTED AT [place] [address] ([facility]) (test code = JOAQUIN Garcia [facility] 1538) [id number] POCT-GLUCOSE [id number] 18:00:00 Test Item Value Reference Range Interpretation Comments POC-GLUCOSE METER 283 mg/dL 70-110 H TESTED AT [place] [address] ([facility]) (test code = [facility] Radha [facility] 1538) [id number] RAD, LEG, [id number] 17:07:00Reason for exam:->evaluate for air concerning for [...] MDReport Verified Date/Time: 05/05/2019 17:07:13 Reading Location: [address] Ortho Consult Reading Room [id number] 16:54:00 Test Item Value Reference Range Interpretation Comments PARTIAL THROMBOPLASTIN TIME 32.0 seconds 22.5-36.0 (BEAKER) (test code = 760) PROTHROMBIN TIME/[id number] 16:53:00 Test Item Value Reference Range Interpretation Comments PROTIME (BEAKER) (test code = 17.3 seconds 11.9-14.2 H 759) INR (BEAKER) (test code = 370) 1.5 <=5.9 Effective 04/24/2019: PT Reference Range ChangeNew: 11.9-14.2 Previous: 11.7- 14.7RECOMMENDED COUMADIN/WARFARIN INR THERAPY RANGESSTANDARD DOSE: 2.0-3.0 Includes: PROPHYLAXIS for venous thrombosis, systemic embolization; TREATMENT for venous thrombosis and/or pulmonary embolus.HIGH RISK: Target INR is2.5-3.5 for patients wiht mechanical heart valves.CBC W/PLT COUNT & AUTO [id number] 16:46:00 Test Item Value Reference Range Interpretation Comments WHITE BLOOD CELL COUNT (BEAKER) 10.2 K/ L 3.5-10.5 (test code = 775) RED BLOOD CELL COUNT (BEAKER) 4.12 M/ L 4.63-6.08 L (test code = 761) HEMOGLOBIN (BEAKER) (test code = 12.7 GM/DL 13.7-17.5 L 410) HEMATOCRIT (BEAKER) (test code = 38.5 % 40.1-51.0 L 411) MEAN CORPUSCULAR VOLUME (BEAKER) 93.4 fL 79.0-92.2 H (test code = 753) MEAN CORPUSCULAR HEMOGLOBIN 30.8 pg 25.7-32.2 (BEAKER) (test code = 751) MEAN CORPUSCULAR HEMOGLOBIN CONC 33.0 GM/DL 32.3-36.5 (BEAKER) (test code = 752) RED CELL DISTRIBUTION WIDTH 16.2 % 11.6-14.4 H (BEAKER) (test code = 412) PLATELET COUNT (BEAKER) (test 169 K/CU MM 150-450 code = 756) MEAN PLATELET VOLUME (BEAKER) 12.6 fL 9.4-12.4 H (test code = 754) NUCLEATED RED BLOOD CELLS 0 /100 WBC 0-0 (BEAKER) (test code = 413) NEUTROPHILS RELATIVE PERCENT 71 % (BEAKER) (test code = 429) LYMPHOCYTES RELATIVE PERCENT 16 % (BEAKER) (test code = 430) MONOCYTES RELATIVE PERCENT 10 % (BEAKER) (test code = 431) EOSINOPHILS RELATIVE PERCENT 2 % (BEAKER) (test code = 432) BASOPHILS RELATIVE PERCENT 0 % (BEAKER) (test code = 437) NEUTROPHILS ABSOLUTE COUNT 7.16 K/ L 1.78-5.38 H (BEAKER) (test code = 670) LYMPHOCYTES ABSOLUTE COUNT 1.64 K/ L 1.32-3.57 (BEAKER) (test code = 414) MONOCYTES ABSOLUTE COUNT (BEAKER) 1.04 K/ L 0.30-0.82 H (test code = 415) EOSINOPHILS ABSOLUTE COUNT 0.17 K/ L 0.04-0.54 (BEAKER) (test code = 416) BASOPHILS ABSOLUTE COUNT (BEAKER) 0.03 K/ L 0.01-0.08 (test code = 417) IMMATURE GRANULOCYTES-RELATIVE 1 % 0-1 PERCENT (BEAKER) (test code = 2801) B-TYPE NATRIURETIC FACTOR (BNP)2019-05-05 16:37:00 Test Item Value Reference Range Interpretation Comments B-TYPE NATRIURETIC PEPTIDE 1891 pg/mL 0-100 H (BEAKER) (test code = 700) BODY FLUID CELL COUNT WITH [id number] 16:32:00 Test Item Value Reference Range Interpretation Comments APPEARANCE FLUID (BEAKER) (test Cloudy Clear A code = 510) COLOR FLUID (BEAKER) (test code Red Colorless, Straw A = 511) RBC FLUID (BEAKER) (test code = 67023 /cu mm <=1 H 513) ADJUSTED WBC FLUID (BEAKER) 2560 /cu mm <=5 H (test code = 1691) LINING CELLS (BEAKER) (test 0 /cu mm <=1 code = 1590) NEUTROPHILS FLUID (BEAKER) 94 % (test code = 1656) LYMPHS FLUID (BEAKER) (test 2 % code = 488) MONO/MACROPHAGE FLUID (BEAKER) 4 % (test code = 489) EOSINOPHILS FLUID (BEAKER) 0 % (test code = 491) BASO FLUID (BEAKER) (test code 0 % = 492) CONTAINER BODY FLUID (BEAKER) Sterile Cup (test code = 2873) BASIC METABOLIC [id number] 16:31:00 Test Item Value Reference Range Interpretation Comments SODIUM (BEAKER) 133 meq/L 136-145 L (test code = 381) POTASSIUM (BEAKER) 3.9 meq/L 3.5-5.1 (test code = 379) CHLORIDE (BEAKER) 103 meq/L 98-107 (test code = 382) CO2 (BEAKER) (test 26 meq/L 22-29 code = 355) BLOOD UREA NITROGEN 18 mg/dL 7-21 (BEAKER) (test code = 354) CREATININE (BEAKER) 0.71 mg/dL 0.57-1.25 (test code = 358) GLUCOSE RANDOM 152 mg/dL 70-105 H (BEAKER) (test code = 652) CALCIUM (BEAKER) 7.8 mg/dL 8.4-10.2 L (test code = 697) EGFR (BEAKER) (test 115 mL/min/1.73 ESTIM ATED GFR IS code = 1092) sq m NOT ACCURATE CREATININE CLEARANCE IN PREDICTING GLOMERULAR FILTRATION RATE . ESTIMATED GFR I S NOT APPLICABLE FOR DIALYSIS PATIEN TS. [id number] 16:30:00 Test Item Value Reference Range Interpretation Comments PHOSPHORUS (BEAKER) (test code = 2.3 mg/dL 2.3-4.7 604) [id number] 16:30:00 Test Item Value Reference Range Interpretation Comments MAGNESIUM (BEAKER) (test code = 1.4 mg/dL 1.6-2.6 L 627) C-REACTIVE [id number] 16:30:00 Test Item Value Reference Range Interpretation Comments C-REACTIVE PROTEIN (BEAKER) (test 3.40 mg/dL 0.00-0.50 H code = 676) RAD, CHEST, 1 VIEW, NON [id number] 14:59:00Reason for exam:->dyspnea, history of CHF and [...] Watson Verified Date/Time: 05/05/2019 14:59:38 Reading Location: [address] Body Reading Room RAD, KNEE, 3 VIEWS, [id number] 13:28:00 Reason for exam:->concern for septic arthritisShould this be performed at the bedside?->YesFINAL REPORT Right knee. HISTORY: Concern for septic arthritis. COMPARISON STUDY: None available. FINDINGS: Four views of the right knee demonstrate no evidence of fracture, malalignment or effusion. Atherosclerosis is seen. Signed: Tremayne Lundberg Verified Date/Time: 0 05/05/2019 13:28:26 Reading Location: [address] Ortho Consult Reading Room POCT- GLUCOSE [id number] 12:03:00 Test Item Value Reference Range Interpretation Comments POC-GLUCOSE METER 209 mg/dL 70-110 H TESTED AT [place] [address] ([facility]) (test code = JOAQUIN Garcia [place] [place] 1538) [id number]
[2020-10-06 20:37] LABS: Absolute Lymphocytes (CBC) 1.8 K/uL (0.7-4.9); Basophils % 1.2 % (0-1.3); Hematocrit 33.1 % (39.6-49.0); Lymphocytes % 43.7 % (15.3-44.8); RBC Red Blood Cell Count 3.59 M/uL (4.33-5.43)
[2020-10-06 20:41] LABS: Protime INR 1.18
[2020-10-06 20:54] LABS: Blood Morphology Comment NOT SEEN (NOT SEEN); Platelet Estimate DECR; White Blood Cell Scan OK (OK)
[2020-10-06] MEDS ORDERED: MAGNESIUM SULFATE 1 gm IVPB 1 GM/100 ML BAG IV ONE (20:55)
[2020-10-06 21:07] LABS: ALT/SGPT 69 U/L (12-78); AST/SGOT 92 U/L (15-37); Albumin 2.4 g/dL (3.4-5.0); Alkaline Phosphatase 135 U/L (45-117); BUN Blood Urea Nitrogen 26 mg/dL (7-18); Bicarbonate 28 mmol/L (21-32); Bilirubin Direct 0.9 mg/dL (0-0.2); Bilirubin Total 1.2 mg/dL (0.2-1.0); Glucose Level 118 mg/dL (74-106); Potassium 3.3 mmol/L (3.5-5.1); Protein, Total 6.5 g/dL (6.4-8.2); Sodium Level 140 mmol/L (136-145)
[2020-10-06] MEDS ORDERED: SODIUM BICARB 50 MEQ/50ML VIAL ONE (21:08)
[2020-10-06] MEDS ORDERED: NA CHLORIDE 0.9% 1,000 ML ONE (21:55)
--- NOTE | 2020-10-06 23:59 | EDPHYS ---
Physician Documentation [facility] Name: Bob Santana Age: 55 yrs Sex: Male : 1965 Arrival Date: 10/06/2020 Time: 19:56 Bed 4 Private MD: ED Physician Bill Augustine HPI: 10/06 19:57 This 55 yrs old Male presents to ER via Unassigned with complaints of rn overdose. 19:57 The patient presents to the emergency department after a known overdose. Associated rn signs and symptoms: The patient has no apparent associated signs or symptoms. Severity of symptoms: At their worst the symptoms were mild in the emergency department the symptoms are unchanged. The patient has not experienced similar symptoms in the past. Reports "life problems", today beginning around 1530 took carvedilol 3.125mg on 3 separate occasions, feels fatigued, no sob/chest pain/syncope. Denies other drugs, took a sip of [place], and now feels a little better. Girlfriend called 911, he refused transport, mental health deputy got involved, brought patient here. . Historical: - Allergies: 20:09 No Known Allergies; bb - Home Meds: 20:09 carvedilol 3.125 mg Oral tab 1 tab 2 times per day [Active]; buspirone 10 mg Oral tab 1 bb tab 3 times per day [Active]; spironolactone 50 mg oral tab 1 tab once daily [Active]; furosemide 80 mg oral tab 1 tab once daily [Active]; - PMHx: 20:09 cardiomegaly; CHF; Cirrhosis; COPD; Hepatitis; Hypertension; bb - Immunization history:: Adult Immunizations up to date. - Social history:: Smoking status: Patient reports the use of cigarette tobacco products, smokes one-half pack cigarettes per day, Patient/guardian denies using alcohol, street drugs. - Family history:: not pertinent. - Hospitalizations: : No recent hospitalization is reported. ROS: 19:57 Constitutional: Negative for fever, chills, and weight loss, Eyes: Negative for injury, rn pain, redness, and discharge, Cardiovascular: Negative for chest pain, palpitations, and edema, Respiratory: Negative for shortness of breath, cough, wheezing, and pleuritic chest pain, Abdomen/GI: Negative for abdominal pain, nausea, vomiting, diarrhea, and constipation, MS/Extremity: Negative for injury and deformity, Skin: Negative for injury, rash, and discoloration, Neuro: Negative for headache, weakness, numbness, tingling, and seizure, Psych: Negative for homicidal ideation, and hallucinations. Exam: 19:57 Constitutional: This is a well developed, well nourished patient who is awake, alert, rn and in no acute distress. Ambulatory from ambulance bay to room without difficulty or assistance. Head/Face: Normocephalic, atraumatic. Eyes: Pupils equal round and reactive to light, extra-ocular motions intact. Lids and lashes normal. Conjunctiva and sclera are non-icteric and not injected. Cornea within normal limits. Periorbital areas with no swelling, redness, or edema. Cardiovascular: Regular rate and rhythm. No pulse deficits. Respiratory: Speaking full sentences. No increased work of breathing, no retractions or nasal flaring. Abdomen/GI: soft, non-tender Skin: Warm, dry MS/ Extremity: Pulses equal, no cyanosis. Neurovascular intact. Full, normal range of motion. Equal circumference. Neuro: Awake and alert, GCS 15, oriented to person, place, time, and situation. Cranial nerves II-XII grossly intact. Motor strength 5/5 in all extremities. Sensory grossly intact. Cerebellar exam normal. Normal gait. Vital Signs: 20:03 BP 113 / 65; Pulse 57; Resp 16 S; Temp 98.1(O); Pulse Ox 97% on R/A; Weight 95.25 kg bb (R); Height 5 ft. 10 in. (177.80 cm) (R); Pain 0/10; 21:00 BP 104 / 50; Pulse 55; Resp 16; Pulse Ox 100% on R/A; sg 21:30 BP 97 / 46; Pulse 69; Resp 17; Pulse Ox 95% on R/A; sg 22:00 BP 103 / 55; Pulse 55; Resp 18; Pulse Ox 96% on R/A; sg 23:00 BP 102 / 54; Pulse 62; Resp 18; Pulse Ox 94% on R/A; sg 23:30 BP 90 / 49; Pulse 55; Resp 16; Pulse Ox 96% on R/A; sg 10/07 00:58 BP 104 / 62; Pulse 69; Resp 17; Pulse Ox 97% on R/A; sg 02:05 BP 115 / 70; Pulse 88; Resp 17; Pulse Ox 97% on R/A; sg 10/06 20:03 Body Mass Index 30.13 (95.25 kg, 177.80 cm) bb MDM: 10/06 19:56 Patient medically screened. rn 20:41 ED course: Poison control recommends sodium bicarb amp as well as magnesium. . rn 23:56 Differential diagnosis: Ingestion/exposure to beta fransisco overdose. Data reviewed: rn vital signs, nurses notes, lab test result(s), EKG, and as a result, I will admit patient. Counseling: I had a detailed discussion with the patient and/or guardian regarding: the historical points, exam findings, and any diagnostic results supporting the discharge/admit diagnosis, lab results, the need for further work-up and treatment in the hospital. Response to treatment: There is no appreciated change of the patient's symptoms at this time. Admission orders: after a detailed discussion of the patient's condition and case, the admit orders are written by me. ED course: Pt with multiple borderline/low BP, HR in 50s, stable, but not improving, has CHF so have to be slow on fluid support for BP, admitted to Dr. Cummins for further care and observation, when medically cleared can be evaluated by [facility]. . 10/07 01:00 ED course: Pt upset about admission for COREG overdose, notified him that mental health rn deputy filled an emergency fdc order on him and that we are concerned for his safety and requires observation for beta fransisco overdose. Patient very aggravated, upset, I tried to calm him down and showed him emergency fdc order, popped out of bed demanding to leave. I stepped out of room because of escalation of aggression and charge nurse notifying police. . 01:09 ED course: Police here at bedside. rn 02:19 ED course: Pt calm after spoke with hop strainer, requested something "to take the edge off", rn 1mg ativan ordered. . 10/06 19:57 Order name: Acetaminophen; Complete Time: 23:16 rn 10/06 19:57 Order name: Basic Metabolic Panel; Complete Time: 23:16 rn 10/06 19:57 Order name: CBC with Diff; Complete Time: 23:16 rn 10/06 19:57 Order name: ETOH Level; Complete Time: 23:16 rn 10/06 19:57 Order name: Hepatic Function; Complete Time: 23:16 rn 10/06 19:57 Order name: PT-INR; Complete Time: 23:16 rn 10/06 19:57 Order name: Ptt, Activated; Complete Time: 23:16 rn 10/06 19:57 Order name: Salicylate; Complete Time: 23:16 rn 10/06 19:57 Order name: Urine Drug Screen rn 10/06 20:54 Order name: CBC Smear Scan; Complete Time: 23:16 EDAR 10/07 01:38 Order name: Urine Dipstick--Ancillary (enter results) tt3 10/07 01:42 Order name: Urine Dipstick-Ancillary EDAR 10/07 04:58 Order name: Basic Metabolic Panel [facility] 10/06 19:57 Order name: EKG; Complete Time: 19:57 rn 10/06 19:57 Order name: EKG - Nurse/Tech; Complete Time: 20:08 rn 10/06 19:57 Order name: IV Saline Lock; Complete Time: 20:26 rn 10/06 19:57 Order name: Labs collected and sent; Complete Time: 20:26 rn 10/06 19:57 Order name: Urine Dipstick-Ancillary (obtain specimen); Complete Time: 01:27 rn Administered Medications: 10/06 20:40 Drug: Magnesium Sulfate 1 grams Route: IVPB; Infused Over: 1 hrs; Site: left hand; sg 21:50 Follow up: Response: No adverse reaction; IV Status: Completed infusion sg 20:42 Drug: Sodium Bicarbonate 1 amp Route: IVP; Site: left hand; sg 22:00 Follow up: Response: No adverse reaction sg 22:00 Drug: NS 0.9% 500 ml Route: IV; Rate: bolus; Site: left hand; sg 22:42 Follow up: Response: No adverse reaction; IV Status: Completed infusion; IV Intake: sg 500ml 23:21 Drug: NS 0.9% 250 ml Route: IV; Rate: bolus; Site: left hand; rr5 10/07 00:00 Follow up: Response: No adverse reaction; IV Status: Completed infusion; IV Intake: rr5 250ml 02:05 Drug: Ativan 1 mg Route: IVP; Site: left hand; sg 02:31 Follow up: Response: No adverse reaction; Anxiety decreased sg Disposition: 10/06/20 23:58 Hospitalization ordered by Prince Placido for Observation. Preliminary diagnosis are Intentional overdose of beta fransisco -Coreg, Bradycardia, unspecified, Hypotension, unspecified. - Bed requested for [facility] ER HOLD. - Status is Observation. bb - Condition is Stable. - Problem is new. - Symptoms are unchanged. Signatures: Dispatcher [employer] EDMS Abram Joshi RN RN sg Merry Solorio RN RN bb Nieto, Roman, MD MD rn Lasagna, Tonya, RN RN tl1 Jd Pride RN RN rr5 Corrections: (The following items were deleted from the chart) 01:44 10/06 23:58 Hospitalization Ordered by Prince Placido FERGUSON for Observation. Preliminary tl1 diagnosis is Intentional overdose of beta fransisco -Coreg; Bradycardia, unspecified; Hypotension, unspecified. Bed requested for Intensive Care Unit. Status is Observation. Condition is Stable. Problem is new. Symptoms are unchanged. rn 10/07 08:10 01:44 10/06/2020 23:58 Hospitalization Ordered by Prince Placido FERGUSON for Observation. bb Preliminary diagnosis is Intentional overdose of beta fransisco -Coreg; Bradycardia, unspecified; Hypotension, unspecified. Bed requested for [facility] ER HOLD. Status is Observation. Condition is Stable. Problem is new. Symptoms are unchanged. tl1
--- NOTE | 2020-10-06 23:59 | ER ---
Nurse's Notes [facility] Name: Bob Santana Age: 55 yrs Sex: Male : 1965 Arrival Date: 10/06/2020 Time: 19:56 Bed 4 Private MD: Diagnosis: Intentional overdose of beta fransisco -Coreg;Bradycardia, unspecified;Hypotension, unspecified Presentation: 10/06 20:03 Chief complaint: Mental [facility] [place] brought pt for report of suicidal ideations and bb an overdose on his medication. Coronavirus screen: At this time, the client does not indicate any symptoms associated with coronavirus-19. The client reports previous COVID testing was negative. Ebola Screen: No symptoms or risks identified at this time. Initial Sepsis Screen: Does the patient meet any 2 criteria? No. Patient's initial sepsis screen is negative. Does the patient have a suspected source of infection? No. Patient's initial sepsis screen is negative. Risk Assessment: Do you want to hurt yourself or someone else? Patient reports no desire to harm self or others. Onset of symptoms was October 06, 2020. 20:03 Method Of Arrival: Ambulatory bb 20:03 Acuity: KISHAN 2 bb Triage Assessment: 20:20 General: Appears in no apparent distress. well groomed, well developed, well nourished, sg Behavior is calm, cooperative, appropriate for age. Pain: Denies pain. Historical: - Allergies: 20:09 No Known Allergies; bb - Home Meds: 20:09 carvedilol 3.125 mg Oral tab 1 tab 2 times per day [Active]; buspirone 10 mg Oral tab 1 bb tab 3 times per day [Active]; spironolactone 50 mg oral tab 1 tab once daily [Active]; furosemide 80 mg oral tab 1 tab once daily [Active]; - PMHx: 20:09 cardiomegaly; CHF; Cirrhosis; COPD; Hepatitis; Hypertension; bb - Immunization history:: Adult Immunizations up to date. - Social history:: Smoking status: Patient reports the use of cigarette tobacco products, smokes one-half pack cigarettes per day, Patient/guardian denies using alcohol, street drugs. - Family history:: not pertinent. - Hospitalizations: : No recent hospitalization is reported. Screenin:20 Abuse screen: Denies threats or abuse. Denies injuries from another. Nutritional sg screening: No deficits noted. Tuberculosis screening: No symptoms or risk factors identified. Never had TB. Fall Risk None identified. Assessment: 20:12 General: Appears in no apparent distress. well groomed, well developed, well nourished, sg Behavior is cooperative, appropriate for age. Pain: Denies pain. Neuro: Level of Consciousness is awake, alert, obeys commands, Oriented to person, place, situation, Moves all extremities. Speech is normal, Facial symmetry appears normal. Cardiovascular: Patient's skin is warm and dry. Chest pain is denied. Respiratory: Airway is patent Respiratory effort is even, unlabored, Respiratory pattern is regular, symmetrical. GI: No signs and/or symptoms were reported involving the gastrointestinal system. : No signs and/or symptoms were reported regarding the genitourinary system. EENT: No signs and/or symptoms were reported regarding the EENT system. Derm: Skin is dusky. Musculoskeletal: Circulation, motion, and sensation intact. Swelling BUE. 20:20 Reassessment: pt reports feeling tired and sad, reasons for taking medications and sg wanting to harm himself. 20:24 Reassessment: Patient appears in no apparent distress at this time. pt offered food, sg states would like something to eat, notified, pt ok to eat this time per ERP, pt given chips, sandwich and a juice, pt reports has an appetite at this time. tolerating well. 20:32 Reassessment: poison control contacted, . Recommendations include- sg Cardiac monitoring, monitor VS for hypotension, risk of orthostatic hypotension, treat symptoms, NS fluids, 1-2 amp of sodium bicarb, 1-2 grams of magnesium for QRS greater than 100, and QT greater than 400, administer atropine as needed for bradycardia. 21:40 Reassessment: notified of pt VS, v/o received for NS bolus 500 mL x1, repeat sg VS. 22:30 Reassessment: Patient appears in no apparent distress at this time. Patient is alert, sg oriented x 3, equal unlabored respirations, skin warm/dry/pink. pt resting with eyes closed at this time, reports feeling fine, denies pain. 23:42 Reassessment: at bedside re evaluating pt at this time. sg 10/07 00:53 Reassessment: "man, can you get this doctor in here, I need to tell him that I just sg need medication for anxiety and they can let me go to the house. My blood pressures been fine, its coming back up. I been just sittin here for hours just staring at this pole and I can just do that at home. 00:57 Reassessment: Patient appears in no apparent distress at this time. at bedside sg with patient, pt verbalizing he is "pissed off" about this whole process. pt states " This mental health deputy put me in the back of this car like a criminal. I just wanna go. This is bullshit.". 01:00 Reassessment: Patient is alert, oriented x 3, equal unlabored respirations, skin sg warm/dry/pink. pt states " get all this shit off me, Im going home. My girlfriend is at home dying and Im sitting up here. If they come and hear how mad I am I bet they will put my ass in assisted." Patient denies pain at this time. 01:02 Reassessment: notified [facility] of pt uncooperative per Dr Augustine. bb 01:09 Reassessment: pt very agitated states his girlfriend is at home dying and he needs to bb leave, pt is yelling, pacing around room, [place] [employer] called and at bedside. 01:18 Reassessment: [place] officers x5 at bedside at this time with pt, pt yelling at PD sg requesting to get home to his girlfriend who is at home and is sick. 01:45 Reassessment: pt calm and cooperative at this time. spoke with pt girlfriend who was in sg the ED parking lot per pt request. pt is speaking with family on phone now, appears calm, states feeling better. 02:00 Reassessment: Patient appears in no apparent distress at this time. pt denies suicidal sg ideations at this time, pt speaking with his girlfriend, apologized to nursing staff, apologized to pt girlfriend. requesting medicatons to calm nerves. notified, pt medicated as ordered. pt given more warm blankets, repositioned and given a pillow, pt reports he will take a nap and awaiting [place] evaluation at this time. Vital Signs: 10/06 20:03 BP 113 / 65; Pulse 57; Resp 16 S; Temp 98.1(O); Pulse Ox 97% on R/A; Weight 95.25 kg bb (R); Height 5 ft. 10 in. (177.80 cm) (R); Pain 0/10; 21:00 BP 104 / 50; Pulse 55; Resp 16; Pulse Ox 100% on R/A; sg 21:30 BP 97 / 46; Pulse 69; Resp 17; Pulse Ox 95% on R/A; sg 22:00 BP 103 / 55; Pulse 55; Resp 18; Pulse Ox 96% on R/A; sg 23:00 BP 102 / 54; Pulse 62; Resp 18; Pulse Ox 94% on R/A; sg 23:30 BP 90 / 49; Pulse 55; Resp 16; Pulse Ox 96% on R/A; sg 10/07 00:58 BP 104 / 62; Pulse 69; Resp 17; Pulse Ox 97% on R/A; sg 02:05 BP 115 / 70; Pulse 88; Resp 17; Pulse Ox 97% on R/A; sg 10/06 20:03 Body Mass Index 30.13 (95.25 kg, 177.80 cm) bb ED Course: 10/06 19:56 Patient arrived in ED. am2 19:56 Bill Augustine MD is Attending Physician. rn 20:00 Safety Checks: Personal items have been removed. The door is open or patient has been sg placed in a hallway bed/chair. Sitter present at this time. 20:05 Triage completed. bb 20:08 Abram Joshi, RN is Primary Nurse. sg 20:09 EKG done, by ED staff, reviewed by Bill Augustine MD. sg 20:09 Arm band placed on Patient placed in an exam room, on a stretcher, on pulse oximetry. bb 20:15 Safety Checks: Personal items have been removed. The door is open or patient has been sg placed in a hallway bed/chair. Sitter present at this time. 20:20 Initial lab(s) drawn, by me, sent to lab. Inserted saline lock: 20 gauge in left hand, sg using aseptic technique. Blood collected. 20:20 Patient has correct armband on for positive identification. Placed in gown. Bed in low sg position. Call light in reach. nuclear monitoring technician on. Pulse ox on. NIBP on. Warm blanket given. Head of bed elevated. 20:30 Safety Checks: Personal items have been removed. The door is open or patient has been sg placed in a hallway bed/chair. Sitter present at this time. 20:45 Safety Checks: Personal items have been removed. The door is open or patient has been sg placed in a hallway bed/chair. Sitter present at this time. 21:00 Safety Checks: Personal items have been removed. The door is open or patient has been sg placed in a hallway bed/chair. Sitter present at this time. 21:00 Diet: Patient given snack. Tolerated well. sg 21:15 Safety Checks: Personal items have been removed. The door is open or patient has been sg placed in a hallway bed/chair. Sitter present at this time. 21:30 Safety Checks: Personal items have been removed. The door is open or patient has been sg placed in a hallway bed/chair. Sitter present at this time. 21:45 Safety Checks: Personal items have been removed. The door is open or patient has been sg placed in a hallway bed/chair. Sitter present at this time. 22:00 Safety Checks: Personal items have been removed. The door is open or patient has been sg placed in a hallway bed/chair. Sitter present at this time. 22:15 Safety Checks: Personal items have been removed. The door is open or patient has been sg placed in a hallway bed/chair. Sitter present at this time. 22:30 Safety Checks: Personal items have been removed. The door is open or patient has been sg placed in a hallway bed/chair. Sitter present at this time. 22:45 Safety Checks: Personal items have been removed. The door is open or patient has been sg placed in a hallway bed/chair. Sitter present at this time. 23:00 Safety Checks: Personal items have been removed. The door is open or patient has been sg placed in a hallway bed/chair. Sitter present at this time. 23:15 Safety Checks: Personal items have been removed. The door is open or patient has been sg placed in a hallway bed/chair. Sitter present at this time. 23:30 Safety Checks: Personal items have been removed. The door is open or patient has been sg placed in a hallway bed/chair. Sitter present at this time. 23:57 Prince Cummins MD is Hospitalizing Provider. rn 10/07 00:00 Safety Checks: Personal items have been removed. The door is open or patient has been sg placed in a hallway bed/chair. Sitter present at this time. 00:15 Safety Checks: Personal items have been removed. The door is open or patient has been sg placed in a hallway bed/chair. Sitter present at this time. 00:30 Safety Checks: Personal items have been removed. The door is open or patient has been sg placed in a hallway bed/chair. Sitter present at this time. 00:45 Safety Checks: Personal items have been removed. The door is open or patient has been sg placed in a hallway bed/chair. Sitter present at this time. 01:00 Safety Checks: Personal items have been removed. The door is open or patient has been sg placed in a hallway bed/chair. Sitter present at this time. 01:15 Safety Checks: Personal items have been removed. The door is open or patient has been sg placed in a hallway bed/chair. Sitter present at this time. 01:30 Safety Checks: Personal items have been removed. The door is open or patient has been sg placed in a hallway bed/chair. Sitter present at this time. 01:45 Safety Checks: Personal items have been removed. The door is open or patient has been sg placed in a hallway bed/chair. Sitter present at this time. 02:00 Safety Checks: Personal items have been removed. The door is open or patient has been sg placed in a hallway bed/chair. Sitter present at this time. 02:00 No provider procedures requiring assistance completed. Patient admitted, IV remains in sg place. intact, No redness/swelling at site. 02:00 Diet: Patient given snack. Tolerated well. 07:21 Primary Nurse role handed off by Abram Joshi RN 08:09 Bety Hernadnez RN is Primary Nurse. ph Administered Medications: 10/06 20:40 Drug: Magnesium Sulfate 1 grams Route: IVPB; Infused Over: 1 hrs; Site: left hand; 21:50 Follow up: Response: No adverse reaction; IV Status: Completed infusion sg 20:42 Drug: Sodium Bicarbonate 1 amp Route: IVP; Site: left hand; sg 22:00 Follow up: Response: No adverse reaction sg 22:00 Drug: NS 0.9% 500 ml Route: IV; Rate: bolus; Site: left hand; sg 22:42 Follow up: Response: No adverse reaction; IV Status: Completed infusion; IV Intake: sg 500ml 23:21 Drug: NS 0.9% 250 ml Route: IV; Rate: bolus; Site: left hand; rr5 10/07 00:00 Follow up: Response: No adverse reaction; IV Status: Completed infusion; IV Intake: rr5 250ml 02:05 Drug: Ativan 1 mg Route: IVP; Site: left hand; sg 02:31 Follow up: Response: No adverse reaction; Anxiety decreased sg Intake: 10/06 22:42 IV: 500ml; Total: 500ml. sg 10/07 00:00 IV: 250ml; Total: 750ml. rr5 Outcome: 10/06 23:58 Decision to Hospitalize by Provider. rn 10/07 04:18 Admitted to ER Hold. Please see [facility] for further documentation. rr5 Condition: stable Instructed on the need for admit. 08:10 Patient left the ED. bb Signatures: Svetlana Menendez Steven, RN RN sg Ballard, Brenda, RN RN bb Bill Augustine MD MD rn Hall, Patricia, RN RN ph Moreno, Amanda am2 Roque, Raymond, RN RN rr5
--- NOTE | 2020-10-07 00:33 | P.HP ---
Certification for Inpatient Patient admitted to: Observation With expected LOS: <2 Midnights Practitioner: I am a practitioner with admitting privileges, knowledge of patient current condition, hospital course, and medical plan of care. Services: Services provided to patient in accordance with Admission requirements found in Title 42 Section 412.3 of the Code of Federal Regulations Patient History Date of Service: 10/07/20 Reason for admission: suicidal attempt History of Present Illness: This 5-year-old male with a past medical history of hypertension, chronic systolic CHF, decompensated cirrhosis with ascites, pleural effusion and anxiety disorder. He was brought in to the ER via EMS for suicidal attempt. Patient was involved in a verbal argument with his girlfriend. He became very upset and he intentionally ingested multiple tablets of carvedilol intention to kill himself. He days on 3 separate occasions after the argument and ingested a total of 13 tablets P he arrived in the ER very drowsy and slightly hypotensive with SBP in the low 90s. During my encounter with the patient, he was unable to provide a full length a history except admits that he was upset that the time. He denies current SI or HI. Review of his medications reveal that he is on coreg, spironolactone and buspirone. As per chart review, he has a severely depressed LVEF ranging from 20-25%. He arrived to the ER slightly bradycardic. ER recommended admitted the patient at least under observation for hemodynamic monitoring. Allergies No Known Allergies Allergy (Unverified 05/04/19 02:56) Home Medications: Buspirone HCl [Buspar] 10 mg PO BID 05/04/19 Furosemide 40 mg PO BID 05/04/19 Albuterol Sulfate [Proair Hfa] 8.5 gm IH Q6HR PRN #1 [id number] 09/14/19 Aspirin [Bhavana Chewable Aspirin] 81 mg PO DAILY 11/13/19 Digoxin 1 tab PO DAILY 11/13/19 Multivit-Min/Folic/Vit K/Lycop [Men's Multivitamin Tablet] 1 tab PO DAILY 11/13/19 Levofloxacin [Levaquin] 500 mg IV DAILY 14 Days iv.set 11/16/19 Spironolactone [Aldactone*] 25 mg PO BID tab 11/16/19 Vancomycin [Vancocin*] 1 gm IV DAILY 14 Days vial 11/16/19 - Past Medical/Surgical History Diabetic: No -: cardiomegaly -: CHF -: COPD -: Bilateral leg lymphedema -: cellulitis -: hepatitis -: Cardiac catheterization - Family History Mother -: Cancer, Other (see notes) Notes: epilepsy Father -: Lung disease, Other (see notes) Notes: alcoholic - Social History Alcohol use: No CD- Drugs: Yes Caffeine use: No Physical Examination - Physical Exam General: Cooperative, Other (somnolent) HEENT: Atraumatic, Normocephalic, PERRLA, EOMI Neck: Supple Respiratory: Clear to auscultation bilaterally, Normal air movement Cardiovascular: No edema, Normal pulses, Regular rate/rhythm, Normal S1 S2 Gastrointestinal: Normal bowel sounds, Soft and benign, Non-distended, No tenderness Musculoskeletal: No clubbing, No swelling, No contractures, No erythema, No tenderness, No warmth Neurological: Other (somnolent) - Studies Laboratory Data (last 24 hrs) 10/06/20 20:20: PT 13.9 H, INR 1.18, APTT 30.6 10/06/20 20:20: WBC 4.0 L, Hgb 11.5 L, Hct 33.1 L, Plt Count 64 L 10/06/20 20:20: Sodium 140, Potassium 3.3 L, BUN 26 H, Creatinine 1.34 H, Glucose 118 H, Total Bilirubin 1.2 H, AST 92 H, ALT 69, Alkaline Phosphatase 135 H Assessment and Plan - Problems (Diagnosis) (1) Chronic systolic (congestive) heart failure Current Visit: Yes Status: Acute (2) Toxic encephalopathy Current Visit: Yes Status: Acute (3) DM2 (diabetes mellitus, type 2) Current Visit: No Status: Chronic Qualifiers: (4) Suicide attempt Current Visit: Yes Status: Acute - Advance Directives Does patient have a Living Will: No Does patient have a Durable POA for Healthcare: Yes Physician Review Additional Text: Assessment 55 YEAR OLD male with chronic systolic CHF, decompensated cirrhosis and anxiety disorder admitted to the ER with altered mental status after intentional overdose of medications in a suicidal attempt. He is slightly hypotensive after 1 L of NS. He also received sodium bicarbonate and magnesium sulfate. He is mildly somnolent but protecting is airway. BG WNL. Toxic encephalopathy Beta blockers overdose Mild hypotension Chronic systolic CHF Decompensated cirrhosis PLAN: Admit under observation with ICU status for hemodynamic monitoring IV glucagon challenge Monitor blood pressure and bolus if needed I would avoid continuous infusion for now Great caution needs to be exercised due to history of severe CHF PRN atropine at bedside Add calcium gluconate IV and vasopressors if blood pressure drops Will monitor BMP q 4 hours Psychiatry will need to be called in the morning
[2020-10-07] MEDS ORDERED: GLUCAGON 1 MG/VIAL IV ONE (01:03)
[2020-10-07 01:42] LABS: Urine Blood TRACE (NEG); Urine Glucose NEGATIVE (NEG); Urine Protein NEGATIVE (NEG); Urine Specific Gravity 1.025 (1.005-1.030); Urine pH 5.5 (5.0-7.0)
[2020-10-07] MEDS ORDERED: LORazepam 2 MG/ML VIAL ONE ×2 (02:15→10:31)
[2020-10-07 02:27] LABS: Barbiturates NEGATIVE (NEGATIVE); Benzodiazepines POSITIVE (NEGATIVE); Cocaine NEGATIVE (NEGATIVE); METHAMPHETAM POSITIVE (NEGATIVE); Methadone NEGATIVE (NEGATIVE); Opiates NEGATIVE (NEGATIVE); Phencyclidine NEGATIVE (NEGATIVE); THC Cannibis POSITIVE (NEGATIVE)
[2020-10-07] MEDS ORDERED: POTASSIUM CL 40 MEQ in NA CHLORIDE 0.9% 500 ML IV SCH (03:34)
[2020-10-07] MEDS ORDERED: ATROPINE SULFATE 1 MG/ML INJ IV PRN (03:34)
[2020-10-07] MEDS ORDERED: GLUCAGON 1 MG/VIAL IV PRN (03:34)
[2020-10-07] MEDS ORDERED: ATROPINE SULF 1 MG/10 ML SYR IV PRN (03:39)
[2020-10-07] MEDS ORDERED: GLUCAGON 1 MG/VIAL ONE ×2 (04:00→04:02)
[2020-10-07] MEDS: KCL 20 MEQ/100 mL IVPB 20 MEQ/100 ML BAG IV SCH ×2 (04:00→06:12)
[2020-10-07] MEDS ORDERED: NA CHLORIDE 0.9% 500 ML ONE (04:04)
[2020-10-07] MEDS ORDERED: KCL 20 MEQ/100 mL IVPB 40 MEQ/200 ML BAG IV ONE (04:04)
[2020-10-07] MEDS ORDERED: NA CHLORIDE 0.9% 500 ML IV ONE (04:14)
[2020-10-07 04:58] LABS: Potassium 3.4 mmol/L (3.5-5.1)
--- NOTE | 2020-10-07 07:25 | EKG ---
Test Date: 2020-10-06 Test Time: 20:05:44 Senior Electrical Designer: SWG MEASUREMENT RESULTS: Intervals: Rate: 56 TX: 216 QRSD: 176 QT: 522 QTc: 503 [place]: P: 65 TX: 216 QRS: -90 T: 66 INTERPRETIVE STATEMENTS: Sinus bradycardia with 1st degree AV block Right bundle branch block T wave abnormality, consider lateral ischemia Abnormal ECG Compared to ECG 02/15/2020 22:33:30 First degree AV block now present T-wave abnormality now present Possible ischemia now present Sinus tachycardia no longer present Electronically Signed On 10-07-20 07:24:22 ANIMAL HUSBANDRY MANAGER by Shane Quijano
[2020-10-07] MEDS: MAGNESIUM SULFATE 1 gm IVPB 1 GM/100 ML BAG IV ONE ×2 (09:51→10:19)
[2020-10-07] MEDS ORDERED: LORazepam 2 MG/ML VIAL IV ONE (09:52)
--- NOTE | 2020-10-07 10:45 | P.PN ---
Subjective Date of Service: 10/07/20 Chief Complaint: suicidal attempt Subjective: Other (patient agitated and aggressive this morning. threatening to leave, even if he gets arrested claiming he has been lied to since arriving in ED. He states he is not suicidal at this time, but is very agitated and stated "I will slit my own throat if I'm still here tomorrow" His significant other is in the room with him and reports this is his typical personality patient became upset when i asked any further questions about stress at home / anxiety / risk of future suicide attempts and refused to answer any more questions.) Review of Systems is unable to be obtained (pt refused to answer) Physical Examination - Vital Signs Temperature: 97.2 F Blood Pressure: 107/56 Pulse: 62 Respirations: 17 Pulse Ox (%): 99 - Physical Exam General: Alert, Other (aggressive, pacing in room at times) HEENT: Sclerae nonicteric Respiratory: Other (non-labored on room air) Cardiovascular: Regular rate/rhythm Integumentary: No rashes (on exposed skin) Neurological: Normal speech, Abnormal affect (very aggressive, agitated, yelling) - Studies Laboratory Data (last 24 hrs) 10/06/20 20:20: PT 13.9 H, INR 1.18, APTT 30.6 10/06/20 20:20: WBC 4.0 L, Hgb 11.5 L, Hct 33.1 L, Plt Count 64 L 10/06/20 20:20: Sodium 140, Potassium 3.3 L, BUN 26 H, Creatinine 1.34 H, Glucose 118 H, Total Bilirubin 1.2 H, AST 92 H, ALT 69, Alkaline Phosphatase 135 H Assessment & Plan Physician Review Additional Text: 55 YEAR OLD male with chronic systolic CHF, decompensated cirrhosis and anxiety disorder admitted to the ER with altered mental status after intentional overdose of medications in a suicidal attempt. He is slightly hypotensive after 1 L of NS. He also received sodium bicarbonate and magnesium sulfate last night. With some somnolence after given ativan. Toxic encephalopathy Beta blockers overdose / toxicity Mild hypotension Chronic systolic CHF Decompensated cirrhosis last ingestion was 3pm yesterday, took ~13pills over 2-3 days monitored overnight in ICU, did not require pressors/atropine BP and HR uptrendning and have been stable this morning repeat EKG with continued QT prolongation and QRS; I reviewed prior EKGs from 2019 and patient with similar QTc and QRS discussed case with sample book maker - doesn't seem patient needs any more bicarb at this time, not acidotic. Mg this AM: 2.1, advised to give 1gm again; potassium repleted as well Psych consulted (Dr. Pereira) - recommended inpatient psych facility, agreed with current emergency [facility] warrant. Although pt denies SI, some of his comments reflect otherwise. He reported no support at home, nobody to help him, his hostile environment with his SO will remain the same if discharged home, he is very impulsive, and there is concern he will harm himself further. Patient is medically cleared to be transferred to inpatient psych facility Time Spent Managing Pts Care (In Minutes): 35
--- NOTE | 2020-10-07 18:04 | EKG ---
Test Date: 2020-10-07 Test Time: 06:22:04 Bomb Loader: RR MEASUREMENT RESULTS: Intervals: Rate: 58 OR: 200 QRSD: 196 QT: 572 QTc: 561 [place]: P: 51 OR: 200 QRS: -70 T: 81 INTERPRETIVE STATEMENTS: Sinus bradycardia Right bundle branch block Left anterior fascicular block Bifascicular block T wave abnormality, consider lateral ischemia Abnormal ECG Compared to ECG 10/06/2020 20:05:44 Left anterior fascicular block now present Bifascicular block now present First degree AV block no longer present T-wave abnormality still present Possible ischemia still present Electronically Signed On 10-07-20 18:02:40 WASTEWATER ENGINEER by Shane Quijano
[2020-10-08] MEDS ORDERED: IPRATROPIUM BROM 0.5MG/2.5ML NEB ONE ×2 (03:30→03:36)
[2020-10-08] MEDS ORDERED: ALBUTEROL 2.5 MG/3 ML NEB SOL NEB ONE ×2 (03:30→03:36)
[2020-10-08] MEDS ORDERED: IPRATROPIUM BROM 0.5MG/2.5ML ONE (03:57)
[2020-10-08] MEDS ORDERED: ALBUTEROL 2.5 MG/3 ML NEB SOL ONE (03:57)
[2020-10-08 04:17] VITALS: O2SAT 92
[2020-10-08 04:33] LABS: BUN Blood Urea Nitrogen 22 mg/dL (7-18); Bicarbonate 31 mmol/L (21-32); Glucose Level 118 mg/dL (74-106); Sodium Level 141 mmol/L (136-145)
[2020-10-08 04:53] LABS: Magnesium 2.2 mg/dL (1.8-2.4); Potassium 3.8 mmol/L (3.5-5.1)
[2020-10-08] MEDS ORDERED: LORazepam 2 MG/ML VIAL IV ONE (09:57)
[2020-10-08] MEDS ORDERED: LORazepam 2 MG/ML VIAL ONE (10:11)
[2020-10-08] MEDS ORDERED: FUROSEMIDE 40 MG TABLET PO SCH (11:00)
[2020-10-08] MEDS ORDERED: SPIRONOLACTONE 25 MG TABLET PO SCH (11:00)
[2020-10-08] MEDS ORDERED: FUROSEMIDE 40 MG TABLET ONE (13:57)
[2020-10-08] MEDS ORDERED: BUSPIRONE HCL 5 MG TABLET PO SCH (14:00)
[2020-10-08 16:55] VITALS: BP 141/65; TEMP 98.5
[2020-10-08] MEDS ORDERED: HYDROCODONE/APAP 5/325 MG TAB PO ONE (17:00)
[2020-10-08] MEDS ORDERED: HYDROCODONE/APAP 5/325 MG TAB ONE (17:02)
--- NOTE | 2020-10-08 19:10 | P.DS ---
Admission Date: 10/07/20 Discharge Date: 10/08/20 Disposition: TRANSFR TO OTHER-PSY/CD/REHAB Discharge Condition: GOOD Reason for Admission: suicidal attempt Consultations: Behavioral Health - Dr. Richard Pereira Brief History of Present Illness: 55yo male, PMH: chronic systolic CHF (EF:~25%), decompensated cirrhosis with ascites, anxiety disorder. Patient was brought to ED via EMS for suicidal attempt. Patient was involved in a verbal argument with his girlfriend. He became very upset and he intentionally ingested multiple tablets of carvedilol intention to kill himself. He reportedly ingested the medication on 3 separate occasions over 3 days after the argument and ingested a total of 13 tablets. He arrived in the ER very drowsy and slightly hypotensive with SBP in the low 90s. The patient was evaluated by mental health deputy in the ED common filled emergency fdc order due to concern for the patient's safety. Patient became very aggressive and was demanding to leave. Hospital Course: Poison control was contacted, patient receives some magnesium replacement and bicarb. He was monitored in the ICU overnight and his bradycardia and hypotension improved without any need for pressors or other medications. Disease EKGs were notable for prolonged QRS and QTC. Review of prior EKGs revealed this was unchanged. This was briefly reviewed with Cardiology to who recommended permanent discontinuation of carvedilol, and this to discharge on metoprolol 25 mg b.i.d.. Behavior Health was consulted, and recommended transfer to inpatient psych facility due patient being suicidal. Patient without any social support, with a very toxic relationship with his girlfriend which would continue if he was discharged, he is very impulsive, aggressive, and seems to have poor insight. The patient was re-evaluated by a mental health deputy on 10/07 as well and recommended inpatient psych facility transfer. Patient was accepted for transfer on 10/08. Vital Signs/Physical Exam: Temp Pulse Resp BP Pulse Ox 98.5 F 69 18 141/65 H 96 10/08/20 16:00 10/08/20 16:00 10/08/20 16:00 10/08/20 16:00 10/08/20 16:00 General: Alert, In no apparent distress, Oriented x3, Other (Angry, agitated) HEENT: Sclerae nonicteric Respiratory: Clear to auscultation bilaterally, Normal air movement Cardiovascular: Regular rate/rhythm, Edema (Trace bilaterally to the knees) Gastrointestinal: Soft and benign, Non-distended, No tenderness Musculoskeletal: No tenderness Integumentary: No rashes Neurological: Normal speech, Other (Angry, yelling at times, pacing back and forth in the room) Laboratory Data at Discharge: WBC 4.0 K/uL (4.3-10.9) L 10/06/20 20:20 Hgb 11.5 g/dL (13.6-17.9) L 10/06/20 20:20 Hct 33.1 % (39.6-49.0) L 10/06/20 20:20 Plt Count 64 K/uL (152-406) L 10/06/20 20:20 PT 13.9 SECONDS (9.5-12.5) H 10/06/20 20:20 INR 1.18 10/06/20 20:20 APTT 30.6 SECONDS (24.3-36.9) 10/06/20 20:20 Sodium 141 mmol/L (136-145) 10/08/20 03:09 Potassium 3.8 mmol/L (3.5-5.1) 10/08/20 03:09 BUN 22 mg/dL (7-18) H 10/08/20 03:09 Creatinine 0.80 mg/dL (0.55-1.3) 10/08/20 03:09 Glucose 118 mg/dL (74-106) H 10/08/20 03:09 Magnesium 2.2 mg/dL (1.8-2.4) 10/08/20 03:09 Total Bilirubin 1.2 mg/dL (0.2-1.0) H 10/06/20 20:20 AST 92 U/L (15-37) H 10/06/20 20:20 ALT 69 U/L (12-78) 10/06/20 20:20 Alkaline Phosphatase 135 U/L (45-117) H 10/06/20 20:20 Home Medications: Buspirone HCl [Buspar] 10 mg PO TID 05/04/19 Furosemide 80 mg PO DAILY 05/04/19 Acetaminophen with Codeine [Tylenol with-Codeine #3 Tablet] 1 tab PO Q8HP PRN 10/07/20 Spironolactone [Aldactone*] 50 mg PO DAILY 10/07/20 Metoprolol Tartrate [Lopressor*] 25 mg PO BID 30 Days #60 tab 10/08/20 New Medications: Metoprolol Tartrate [Lopressor*] 25 mg PO BID 30 Days #60 tab Patient Discharge Instructions: discontinue carvedilol, new medication on discharge - metoprolol 25mg BID. follow up with cardiology Diet: AHA Activity: Ad darrell Followup: NONE,NONE [Primary Care Provider] - Time spent managing pt's care (in minutes): 35
--- NOTE | 2020-10-11 07:52 | EKG ---
Test Date: 2020-10-08 Test Time: 06:42:11 Crystal Growing Technician: RT-O MEASUREMENT RESULTS: Intervals: Rate: 61 TX: 208 QRSD: 190 QT: 550 QTc: 553 [place]: P: 57 TX: 208 QRS: -72 T: 72 INTERPRETIVE STATEMENTS: Normal sinus rhythm Possible Left atrial enlargement Right bundle branch block Left anterior fascicular block Bifascicular block T wave abnormality, consider lateral ischemia Abnormal ECG Compared to ECG 10/07/2020 06:22:04 Sinus bradycardia no longer present Bifascicular block still present T-wave abnormality still present Possible ischemia still present Electronically Signed On 10-11-20 07:42:19 [employer] by Shane Quijano
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
== END 2020-10-08 21:09 | DRG 917 ==
LOC: ER 19:54 → ERHOLD 10-07 00:23 → OBSVTOIN 10-07 15:56
PROVIDERS: ADMIT Internal Medicine; ATTEND Hospitalist
DX: T44.7X2A Poisoning by beta-adrenoreceptor antagonists, intentional self-harm, initial encounter (principal); G92 Toxic encephalopathy; I50.22 Chronic systolic (congestive) heart failure; I11.0 Hypertensive heart disease with heart failure; J44.9 Chronic obstructive pulmonary disease, unspecified; F17.210 Nicotine dependence, cigarettes, uncomplicated; F39 Unspecified mood [affective] disorder; F12.10 Cannabis abuse, uncomplicated; F31.9 Bipolar disorder, unspecified; E11.9 Type 2 diabetes mellitus without complications; K74.60 Unspecified cirrhosis of liver; F41.9 Anxiety disorder, unspecified; Z79.899 Other long term (current) drug therapy; Z79.82 Long term (current) use of aspirin
CPT/HCPCS: 36415; 80048; 80076; 80307; 80320; 80329; 81003; 83735; 85025; 85610; 85730; 93005; 94640; 96361; 96365; 96367; 96375; 99285; G0378; J0461; J1610; J3475; J3480; J7030; J7040

== ENCOUNTER 2021-05-30 11:51 | Observation (INO) | payer OTHER ==
--- OUTSIDE RECORDS SUMMARY | 2021-05-30 12:03 | XMS REPORT | Continuity of Care Document ---
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 1538) [address] POCT-GLUCOSE [id number] 08:50:00 Test Item Value Reference Range Interpretation Comments POC-GLUCOSE METER 147 mg/dL 70-110 H TESTED AT [place] [address] ([facility]) (test code = [facility] 1538) [address] BASIC METABOLIC [id number] 06:39:00 Test Item Value Reference Range Interpretation [...] S NOT APPLICABLE FOR DIALYSIS PATIEN TS. [id number] 06:36:00 Test Item Value Reference Range Interpretation Comments PHOSPHORUS (BEAKER) (test code = 2.9 mg/dL 2.3-4.7 604) [id number] 06:36:00 Test Item Value Reference Range Interpretation Comments MAGNESIUM (BEAKER) (test code = 1.8 mg/dL 1.6-2.6 627) HEPATIC FUNCTION [id number] 06:36:00 Test Item Value Reference Range Interpretation [...] code = 87 U/L 6-55 H 347) [id number] 05:03:00 Test Item Value Reference Range Interpretation [...] RED BLOOD CELLS 0 /100 WBC 0-0 (AKER) (test code = 413) POCT-GLUCOSE [id number] 00:04:00 Test Item Value Reference Range Interpretation Comments POC-GLUCOSE METER 263 mg/dL 70-110 H TESTED AT [place] [address] ([facility]) (test code = [facility] 1538) [address] POCT-GLUCOSE [id number] 18:29:00 Test Item Value Reference Range Interpretation Comments POC-GLUCOSE METER 125 mg/dL 70-110 H TESTED AT [place] [address] ([facility]) (test code = [facility] 1538) [address] BODY FLUID [id number] 15:37:00 Test Item Value Reference Range Interpretation Comments CRYSTALS, BODY FLUID No crystals seen. (BEAKER) (test code = 2165) [id number] Myranda Young MD ([facility]) (test code = (electronic signature) 5339) BASIC METABOLIC [id number] 13:20:00 Test Item Value Reference Range Interpretation [...] APPLICABLE FOR DIALYSIS PATIEN TS. Specimen slightly [id number] 13:18:00 Test Item Value Reference Range Interpretation Comments MAGNESIUM (BEAKER) 1.8 mg/dL 1.6-2.6 Specimen slightly (test code = 627) hemolyzed [id number] 13:18:00 Test Item Value Reference Range Interpretation Comments PHOSPHORUS (BEAKER) 2.7 mg/dL 2.3-4.7 Specimen slightly (test code = 604) hemolyzed HEPATIC FUNCTION [id number] 13:18:00 Test Item Value Reference Range Interpretation [...] code = 347) hemolyzed Specimen slightly ictericPOCT-GLUCOSE [id number] 12:55:00 Test Item Value Reference Range Interpretation Comments POC-GLUCOSE METER 117 mg/dL 70-110 H TESTED AT [facility] [address] ([facility]) (test code = JOAQUIN Garcia [facility] 1538) [address] VANCOMYCIN LEVEL, [id number] 12:14:00 Test Item Value Reference Range Interpretation Comments VANCOMYCIN TROUGH (BEAKER) (test 10.0 ug/mL 10.0-20.0 code = 522) POCT-GLUCOSE [id number] 06:26:00 Test Item Value Reference Range Interpretation Comments POC-GLUCOSE METER 121 mg/dL 70-110 H TESTED AT [facility] [address] [facility] (test code = JOAQUIN Garcia [facility] 1538) [address] RAPID DRUG SCREEN, [id number] 04:06:00 Test Item Value Reference Range Interpretation [...] situations. Chain of custody not maintained. Some kogq-xaq-xkmtxni medications, as well as adulterants, may cause inaccurate results. Clinical correlation should be applied. A more comprehensivedrug screen or confirmation of a detected drug may be performed upon request.POCT-GLUCOSE [id number] 00:34:00 Test Item Value Reference Range Interpretation Comments POC-GLUCOSE METER 171 mg/dL 70-110 H TESTED AT [facility] [address] ([place]) (test code = JOAQUIN Garcia [place] 1538) [address] POCT-GLUCOSE [id number] 18:00:00 Test Item Value Reference Range Interpretation Comments POC-GLUCOSE METER 283 mg/dL 70-110 H TESTED AT [facility] [address] ([facility]) (test code = JOAQUIN Garcia [place] 1538) [address] RAD, LEG, [id number] 17:07:00Reason for exam:->evaluate for air concerning for [...] MDReport Verified Date/Time: 05/05/2019 17:07:13 Reading Location: [address] Ortho Consult Reading Room [id number] 16:54:00 Test Item Value Reference Range Interpretation Comments PARTIAL THROMBOPLASTIN TIME 32.0 seconds 22.5-36.0 (ELIZABETH) (test code = 760) PROTHROMBIN [id number] 16:53:00 Test Item Value Reference Range Interpretation Comments PROTIME (ELIZ[facility]) (test code = 17.3 seconds 11.9-14.2 H 759) INR ([facility]) (test code = 370) 1.5 <=5.9 Effective 04/24/2019: PT Reference Range ChangeNew: 11.9-14.2 Previous: 11.7- 14.7RECOMMENDED COUMADIN/WARFARIN INR THERAPY RANGESSTANDARD DOSE: 2.0-3.0 Includes: PROPHYLAXIS for venous thrombosis, systemic embolization; TREATMENT for venous thrombosis and/or pulmonary embolus.HIGH RISK: Target INR is2.5-3.5 for patients wiht mechanical heart valves.CBC W/PLT COUNT & AUTO [id number] 16:46:00 Test Item Value Reference Range Interpretation [...] = 700) BODY FLUID CELL COUNT WITH [id number] 16:32:00 Test Item Value Reference Range Interpretation Comments APPEARANCE FLUID (BEAKER) (test Cloudy Clear A code = 510) COLOR FLUID (BEAKER) (test code Red Colorless, Straw A = 511) RBC FLUID (BEAKER) (test code = 24847 /cu mm <=1 H 513) ADJUSTED WBC [...] Cup (test code = 2873) BASIC METABOLIC [id number] 16:31:00 Test Item Value Reference Range Interpretation [...] S NOT APPLICABLE FOR DIALYSIS PATIEN TS. [id number] 16:30:00 Test Item Value Reference Range Interpretation Comments PHOSPHORUS (BEAKER) (test code = 2.3 mg/dL 2.3-4.7 604) [id number] 16:30:00 Test Item Value Reference Range Interpretation Comments MAGNESIUM (BEAKER) (test code = 1.4 mg/dL 1.6-2.6 L 627) C-REACTIVE [id number] 16:30:00 Test Item Value Reference Range Interpretation Comments C-REACTIVE PROTEIN (BEAKER) (test 3.40 mg/dL 0.00-0.50 H code = 676) RAD, CHEST, 1 VIEW, NON [id number] 14:59:00Reason for exam:->dyspnea, history of CHF and [...] Cardiomegaly without pulmonary edema. Signed: Lon Watson MDReport Verified Date/Time: 05/05/2019 14:59:38 Reading Location: [facility] B1 C013Y CT Body Reading Room RAD, KNEE, 3 VIEWS, [id number] 13:28:00 Reason for exam:->concern for septic arthritisShould this be performed at the bedside?->YesFINAL REPORT Right knee. HISTORY: Concern for septic arthritis. COMPARISON STUDY: None available. FINDINGS: Four views of the right knee demonstrate no evidence of fracture, malalignment or effusion. Atherosclerosis is seen. Signed: Tremayne Lundberg MDReport Verified Date/Time: 0 05/05/2019 13:28:26 Reading Location: [address] Reading Room POCT- GLUCOSE [id number] 12:03:00 Test Item Value Reference Range Interpretation Comments POC-GLUCOSE METER 209 mg/dL 70-110 H TESTED AT [place] [address] ([facility]) (test code = JOAQUIN [place] 1538) [id number]
[2021-05-30] MEDS ORDERED: NA CHLORIDE 0.9% 500 ML ONE (12:41)
[2021-05-30] MEDS ORDERED: NA CHLORIDE 0.9% 1,000 ML ONE (12:41)
--- NOTE | 2021-05-30 13:16 | RAD REPORT ---
EXAM DESCRIPTION: RAD - Chest Single View - 05/30/2021 12:42 pm CLINICAL HISTORY: COUGH COMPARISON: Portable January 2020 TECHNIQUE: AP portable chest image was obtained 05/30/2021 12:42 pm . FINDINGS: No peripheral mass or consolidation. Trace amount of stranding at the left base is suspect ed to be atelectasis. There is some chronicity of the interstitial pattern present that could potenti ally mask minimal edema or infiltrate. No upper lobe vascular engorgement. Heart size is upper normal , accentuated by portable technique. The cardiac silhouette is much less prominent than seen on the c omparison. No measurable pleural effusion and no pneumothorax. No acute bony abnormality seen. No acute aortic findings suspected. IMPRESSION: No acute cardiopulmonary process. Minimal left base atelectasis is present.
[2021-05-30 13:47] LABS: Absolute Lymphocytes (CBC) 2.4 K/uL (0.7-4.9); Basophils % 1.1 % (0-1.3); Hematocrit 44.2 % (39.6-49.0); Lymphocytes % 38.5 % (15.3-44.8); MPV 11.1 fL (7.6-11.3); RBC Red Blood Cell Count 4.71 M/uL (4.33-5.43)
[2021-05-30 13:52] LABS: Protime INR 1.27
[2021-05-30 14:14] LABS: ALT/SGPT 176 U/L (12-78); AST/SGOT 196 U/L (15-37); Albumin 2.8 g/dL (3.4-5.0); Alkaline Phosphatase 83 U/L (45-117); BUN Blood Urea Nitrogen 30 mg/dL (7-18); Bicarbonate 26 mmol/L (21-32); Bilirubin Direct 1.2 mg/dL (0-0.2); Bilirubin Total 2.3 mg/dL (0.2-1.0); Glucose Level 146 mg/dL (74-106); Magnesium 1.9 mg/dL (1.8-2.4); NT PRO-BNP 13052 pg/mL (<125); Potassium 3.3 mmol/L (3.5-5.1); Protein, Total 7.9 g/dL (6.4-8.2); Sodium Level 139 mmol/L (136-145)
[2021-05-30 14:14] LABS: Urine Blood Trace-lysed (Negative); Urine Glucose Negative (Negative); Urine Protein Negative (Negative)
[2021-05-30] MEDS ORDERED: THIAMINE 200 MG/2 ML INJ ONE (14:41)
[2021-05-30] MEDS ORDERED: FOLIC ACID 5 MG/ML VIAL ONE (14:42)
[2021-05-30 14:45] LABS: Barbiturates NEGATIVE (NEGATIVE); Benzodiazepines POSITIVE (NEGATIVE); Cocaine NEGATIVE (NEGATIVE); METHAMPHETAM POSITIVE (NEGATIVE); Methadone NEGATIVE (NEGATIVE); Opiates NEGATIVE (NEGATIVE); Phencyclidine NEGATIVE (NEGATIVE); THC Cannibis NEGATIVE (NEGATIVE)
[2021-05-30 14:54] LABS: White Blood Cell Scan OK (OK)
--- NOTE | 2021-05-30 14:54 | ER ---
Nurse's Notes [facility] Name: Bob Santana Age: 55 yrs Sex: Male : 1965 Arrival Date: 05/30/2021 Time: 11:53 Bed 13 Private MD: Diagnosis: Unspecified cirrhosis of liver;Adverse effect of amphetamines;Weakness;Cardiomegaly-elevated troponin Presentation: 05/30 11:57 Chief complaint: Patient states: Has worms coming out his ears, nose, and eyes for 3 ll1 weeks. No fever, no pain, no itching. States his also has the worms. Admits to using Meth yesterday. Coronavirus screen: Client denies travel out of the [place] in the last 14 days. At this time, the client does not indicate any symptoms associated with coronavirus-19. Ebola Screen: Patient denies travel to an Ebola-affected area in the 21 days before illness onset. Initial Sepsis Screen: Does the patient meet any 2 criteria? HR > 90 bpm. No. Patient's initial sepsis screen is negative. Does the patient have a suspected source of infection? No. Patient's initial sepsis screen is negative. Risk Assessment: Do you want to hurt yourself or someone else? Patient reports no desire to harm self or others. Onset of symptoms was May 07, 2021. 11:57 Method Of Arrival: Ambulatory ll1 11:57 Acuity: KISHAN 3 ll1 Historical: - Allergies: 11:56 No Known Allergies; ll1 - PMHx: 11:56 Cirrhosis; COPD; Hepatitis; Hypertension; CHF; cardiomegaly; "irregular heartbeat"; ll1 - PSHx: 11:56 R elbow SX; ll1 - Immunization history:: Client reports having NOT received the Covid vaccine. Flu vaccine is up to date. - Social history:: Smoking status: Patient reports the use of cigarette tobacco products, smokes one-half pack cigarettes per day. Screenin:13 Abuse screen: Denies threats or abuse. Denies injuries from another. Nutritional zb screening: No deficits noted. Tuberculosis screening: No symptoms or risk factors identified. Fall Risk None identified. Assessment: 14:14 General: Appears uncomfortable, unkempt, Behavior is anxious. Pain: Denies pain. Neuro: zb Level of Consciousness is awake, alert, obeys commands, Oriented to person, place, time, Reports hallucinations seeing worms . Cardiovascular: Heart tones S1 S2 present Patient's skin is warm and dry. Pulses are all present. Rhythm is regular. Respiratory: Airway is patent Respiratory effort is even, unlabored, Respiratory pattern is regular, symmetrical, Breath sounds are clear bilaterally. GI: No deficits noted. No signs and/or symptoms were reported involving the gastrointestinal system. : No deficits noted. No signs and/or symptoms were reported regarding the genitourinary system. Derm: Skin is intact, is healthy with good turgor, Skin is dry, Skin is normal. Musculoskeletal: Range of motion: intact in all extremities. 15:40 Reassessment: Patient appears in no apparent distress at this time. Patient and/or zb family updated on plan of care and expected duration. Pain level reassessed. Patient is alert, oriented x 3, equal unlabored respirations, skin warm/dry/pink. 17:12 Reassessment: Reassessment: Patient appears in no apparent distress at this time. zb Patient and/or family updated on plan of care and expected duration. Pain level reassessed. Patient is alert, oriented x 3, equal unlabored respirations, skin warm/dry/pink. Vital Signs: 11:57 BP 116 / 39; Pulse 96; Resp 18; Temp 97.9; Pulse Ox 93% ; Weight 97.07 kg; Height 5 ft. ll1 10 in. (177.80 cm); Pain 0/10; 14:15 BP 96 / 81; Pulse 82; Resp 16; Pulse Ox 98% on R/A; zb 15:40 BP 138 / ???; Pulse 69; Resp 18; Pulse Ox 98% on R/A; zb 20:16 BP 141 / 101; Pulse 89; Resp 16; Pulse Ox 100% ; zb 11:57 Body Mass Index 30.71 (97.07 kg, 177.80 cm) ll1 ED Course: 11:53 Patient arrived in ED. ll1 11:56 Arm band placed on Patient placed in an exam room, on a stretcher. ll1 12:00 Triage completed. ll1 12:02 Caro Vazquez RN is Primary Nurse. zb 12:04 Kyrie Alas MD is Attending Physician. aleshia 12:27 Missed attempt(s): 22 gauge in right upper arm. Bleeding controlled, band aid applied, ca1 catheter tip intact. 12:42 XRAY Chest (1 view) In Process Unspecified. EDMS 13:22 Missed attempt(s): 22 gauge in right hand. antecubital area. 5 13:23 awake overnight monitor on. Pulse ox on. NIBP on. 5 14:05 Urine Drug Screen Sent. [facility] 14:14 Patient has correct armband on for positive identification. Placed in gown. Bed in low mh5 position. Call light in reach. Side rails up X2. Warm blanket given. 14:51 Amy Nowak MD is Hospitalizing Provider. [facility] 14:55 COVID-19 : Document "Date of Symptom Onset" if Symptomatic. Sent. [facility] 14:55 Initial lab(s) drawn, by ED staff, sent to lab. Urine collected: clean catch specimen, [facility] clear, EKG done, by ED staff, reviewed by Kyrie Alas MD COVID swab sent to lab. 15:19 CT Head Brain wo Cont In Process Unspecified. EDMS 20:44 No provider procedures requiring assistance completed. Patient admitted, IV remains in zb place. 07 07:37 Primary Nurse role handed off by Caro Vazquez, SKYLAR bp 07:37 Sony Armstrong, RN is Primary Nurse. bp Administered Medications: 05/30 14:25 Drug: Thiamine 100 mg Route: IV; Rate: bolus; Site: left jugular; zb 15:53 Follow up: Response: No adverse reaction zb 14:25 Drug: foLIC Acid 1 mg Route: IVPB; Site: left jugular; zb 15:53 Follow up: Response: No adverse reaction; No change in condition zb 14:26 Drug: NS 0.9% 500 ml Route: IV; Rate: bolus; Site: left jugular; zb 15:54 Follow up: Response: No adverse reaction; IV Status: Completed infusion; IV Intake: zb 500ml 14:26 Drug: NS 0.9% 1000 ml Route: IV; Rate: 125 ml/hr; Site: left jugular; zb 15:53 Drug: Pepcid (famotidine) 20 mg Route: IVP; Site: left jugular; zb 19:14 Follow up: Response: No adverse reaction; Marked relief of symptoms zb 15:53 Drug: Aspirin Chewable Tablet 324 mg Route: PO; zb 19:14 Follow up: Response: No adverse reaction; Marked relief of symptoms zb 15:53 Drug: Lovenox (enoxaparin) 60 mg Route: Sub-Q; Site: right lower abdomen; zb 19:14 Follow up: Response: No adverse reaction; Marked relief of symptoms zb Intake: 15:54 IV: 500ml; Total: 500ml. zb Outcome: 14:53 Decision to Hospitalize by Provider. aleshia 20:44 Admitted to ER Hold. Please see [facility] for further documentation. zb 20:44 Condition: stable 20:44 Instructed on the need for admit. 05/31 15:03 Patient left the ED. iw Signatures: Dispatcher [employer] EDKyrie Montaño MD MD cha Williams, Irene, RN RN Mikaela Mohan [facility] Sony Armstrong RN RN bp Acob, Cheryl, RN RN ca1 Lewis, Lynsay, RN RN Caro Moore RN SKYLAR zb Corrections: (The following items were deleted from the chart) 05/30 20:16 17:12 Reassessment: zb zb
--- NOTE | 2021-05-30 14:54 | EDPHYS ---
Physician Documentation [facility] Name: Bob Santana Age: 55 yrs Sex: Male : 1965 Arrival Date: 05/30/2021 Time: 11:53 Bed 13 Private MD: ED Physician Kyrie Alas HPI: 05/30 12:20 This 55 yrs old Male presents to ER via Ambulatory with complaints of seeing aleshia worms. 12:20 using Meth, seeing worms. Onset: The symptoms/episode began/occurred 2 day(s) ago. aleshia Severity of symptoms: At their worst the symptoms were moderate in the emergency department the symptoms are unchanged. The patient has experienced similar episodes in the past, a few times. Historical: - Allergies: 11:56 No Known Allergies; ll1 - PMHx: 11:56 Cirrhosis; COPD; Hepatitis; Hypertension; CHF; cardiomegaly; "irregular heartbeat"; ll1 - PSHx: 11:56 R elbow SX; ll1 - Immunization history:: Client reports having NOT received the Covid vaccine. Flu vaccine is up to date. - Social history:: Smoking status: Patient reports the use of cigarette tobacco products, smokes one-half pack cigarettes per day. ROS: 12:22 Constitutional: Negative for fever, chills, and weight loss, Eyes: Negative for injury, aleshia pain, redness, and discharge, ENT: Negative for injury, pain, and discharge, Neck: Negative for injury, pain, and swelling, Cardiovascular: Negative for chest pain, palpitations, and edema, Respiratory: Negative for shortness of breath, cough, wheezing, and pleuritic chest pain, Abdomen/GI: Negative for abdominal pain, nausea, vomiting, diarrhea, and constipation, Back: Negative for injury and pain, : Negative for injury, bleeding, discharge, and swelling, MS/Extremity: Negative for injury and deformity, Skin: Negative for injury, rash, and discoloration, Psych: Negative for depression, anxiety, suicide ideation, homicidal ideation, and hallucinations, Allergy/Immunology: Negative for hives, rash, and allergies, Endocrine: Negative for neck swelling, polydipsia, polyuria, polyphagia, and marked weight changes. 12:22 Neuro: Positive for altered mental status, weakness. Exam: 12:22 Constitutional: This is a well developed, well nourished patient who is awake, alert, aleshia and in no acute distress. Head/Face: Normocephalic, atraumatic. Eyes: Pupils equal round and reactive to light, extra-ocular motions intact. Lids and lashes normal. Conjunctiva and sclera are non-icteric and not injected. Cornea within normal limits. Periorbital areas with no swelling, redness, or edema. ENT: Nares patent. No nasal discharge, no septal abnormalities noted. Tympanic membranes are normal and external auditory canals are clear. Oropharynx with no redness, swelling, or masses, exudates, or evidence of obstruction, uvula midline. Mucous membranes moist. Neck: Trachea midline, no thyromegaly or masses palpated, and no cervical lymphadenopathy. Supple, full range of motion without nuchal rigidity, or vertebral point tenderness. No Meningismus. Chest/axilla: Normal chest wall appearance and motion. Nontender with no deformity. No lesions are appreciated. Cardiovascular: Regular rate and rhythm with a normal S1 and S2. No gallops, murmurs, or rubs. Normal PMI, no JVD. No pulse deficits. Respiratory: Lungs have equal breath sounds bilaterally, clear to auscultation and percussion. No rales, rhonchi or wheezes noted. No increased work of breathing, no retractions or nasal flaring. Abdomen/GI: Soft, non-tender, with normal bowel sounds. No distension or tympany. No guarding or rebound. No evidence of tenderness throughout. Back: No spinal tenderness. No costovertebral tenderness. Full range of motion. Male : Normal genitalia with no discharge or lesions. Skin: Warm, dry with normal turgor. Normal color with no rashes, no lesions, and no evidence of cellulitis. Neuro: Awake and alert, GCS 15, oriented to person, place, time, and situation. Cranial nerves II-XII grossly intact. Motor strength 5/5 in all extremities. Sensory grossly intact. Cerebellar exam normal. Normal gait. Psych: Awake, alert, with orientation to person, place and time. Behavior, mood, and affect are within normal limits. 12:22 Musculoskeletal/extremity: ROM: no acute changes, intact in all extremities, full active range of motion, full passive range of motion, Circulation is intact in all extremities. Sensation intact. Compartment Syndrome exam of affected extremity: is normal. 12:22 Neuro: Orientation: is normal, appropriate for stated age, no acute changes, Mentation: is normal, appropriate for stated age, no acute changes, Memory: is normal, appropriate for stated age, no acute changes, Cranial nerves: grossly normal, is grossly normal based on the patient's age, no acute changes, Cerebellar function: is grossly normal, is grossly normal based on the patient's age, no acute changes, Motor: is normal, is grossly normal based on the patient's age, no acute changes, moves all fours, strength is normal, Sensation: is normal, no obvious gross deficits, appropriate no acute changes, Gait: not tested. seizure activity, is not displayed by the patient. 12:27 ECG was reviewed by the Attending Physician. [facility] Vital Signs: 11:57 BP 116 / 39; Pulse 96; Resp 18; Temp 97.9; Pulse Ox 93% ; Weight 97.07 kg; Height 5 ft. ll1 10 in. (177.80 cm); Pain 0/10; 14:15 BP 96 / 81; Pulse 82; Resp 16; Pulse Ox 98% on R/A; zb 15:40 BP 138 / ???; Pulse 69; Resp 18; Pulse Ox 98% on R/A; zb 20:16 BP 141 / 101; Pulse 89; Resp 16; Pulse Ox 100% ; zb 11:57 Body Mass Index 30.71 (97.07 kg, 177.80 cm) ll1 Procedures: 14:12 Peripheral line: by aseptic technique a peripheral line was placed in the left external [facility] jugular vein. MDM: 12:04 Patient medically screened. [facility] 12:28 Differential Diagnosis altered mental status. Data reviewed: vital signs, nurses notes, [facility] lab test result(s), EKG, radiologic studies, CT scan, plain films. Data interpreted: bus monitor: rate is 96 beats/min, rhythm is regular, Pulse oximetry: on room air is 93 %. Test interpretation: by ED physician or midlevel provider: ECG, plain radiologic studies. Counseling: I had a detailed discussion with the patient and/or guardian regarding: the historical points, exam findings, and any diagnostic results supporting the discharge/admit diagnosis, lab results, radiology results, the need for outpatient follow up. 05/30 12:05 Order name: Acetaminophen [facility] 05/30 12:05 Order name: Basic Metabolic Panel [facility] 05/30 12:05 Order name: CBC with Diff [facility] 05/30 12:05 Order name: ETOH Level; Complete Time: 14:39 [facility] 05/30 12:05 Order name: Hepatic Function; Complete Time: 14:39 [facility] 05/30 12:05 Order name: PT-INR; Complete Time: 14:39 [facility] 05/30 12:05 Order name: Ptt, Activated; Complete Time: 14:39 [facility] 05/30 12:05 Order name: Salicylate; Complete Time: 14:39 [facility] 05/30 12:05 Order name: Urine Drug Screen [facility] 05/30 12:06 Order name: Acetaminophen Level; Complete Time: 14:39 EDMS 05/30 12:06 Order name: Basic Metabolic Panel; Complete Time: 14:39 EDMS 05/30 12:07 Order name: Magnesium; Complete Time: 14:39 [facility] 05/30 12:07 Order name: NT PRO-BNP; Complete Time: 14:39 [facility] 05/30 12:07 Order name: Troponin (emerg Dept Use Only); Complete Time: 14:39 [facility] 05/30 12:07 Order name: XRAY Chest (1 view); Complete Time: 13:30 [facility] 05/30 12:20 Order name: AMMONIA [facility] 05/30 12:20 Order name: Ammonia; Complete Time: 14:39 EDMS 05/30 12:22 Order name: TSH; Complete Time: 14:39 ll1 05/30 13:57 Order name: CBC Smear Scan EDMS 05/30 14:14 Order name: Urine Dipstick-Ancillary; Complete Time: 14:39 EDMS 05/30 14:41 Order name: COVID-19 : Document "Date of Symptom Onset" if Symptomatic. [facility] 05/30 17:48 Order name: Troponin I EDMS 05/30 17:56 Order name: SARS-COV-2 RT PCR EDMS 05/31 07:29 Order name: NT PRO-BNP EDMS 05/31 07:34 Order name: CBC with Automated Diff EDMS 05/31 10:52 Order name: Manual Differential EDMS 05/31 14:13 Order name: Comprehensive Metabolic Panel EDMS 05/31 14:13 Order name: Troponin I EDMS 05/31 14:14 Order name: Magnesium EDMS 05/30 12:05 Order name: EKG; Complete Time: 12:06 [facility] 05/30 12:05 Order name: EKG - Nurse/Tech; Complete Time: 12:14 [facility] 05/30 12:05 Order name: IV Saline Lock; Complete Time: 14:18 [facility] 05/30 12:05 Order name: Labs collected and sent; Complete Time: 14:18 [facility] 05/30 12:05 Order name: Suicide Screening ([place]); Complete Time: 14:18 [facility] 05/30 12:05 Order name: Urine Dipstick-Ancillary (obtain specimen); Complete Time: 14:04 [facility] 05/30 12:07 Order name: Cardiac monitoring; Complete Time: 12:13 [facility] 05/30 12:07 Order name: O2 Per Protocol; Complete Time: 12:27 [facility] 05/30 12:07 Order name: O2 Sat Monitoring; Complete Time: 12:13 [facility] 05/30 14:41 Order name: EKG; Complete Time: 14:42 [facility] 05/30 14:41 Order name: EKG - Nurse/Tech; Complete Time: 14:54 [facility] 05/30 15:07 Order name: CT Head Brain wo Cont [facility] 05/30 17:48 Order name: CONS Physician Consult [facility] 05/30 17:48 Order name: Regular EDMS 05/31 07:00 Order name: Labs - recollect needed: recollect cbc tt3 EC:27 Rate is 94 beats/min. Rhythm is regular. QRS [place] is Normal. [place] interval is normal. QRS laeshia interval is prolonged. QT interval is normal. No Q waves. T waves are Normal. No ST changes noted. Clinical impression: Abnormal EKG without significant change, LVH, and No evidence of ischemia. Interpreted by me. Reviewed by me. Administered Medications: 14:25 Drug: Thiamine 100 mg Route: IV; Rate: bolus; Site: left jugular; zb 15:53 Follow up: Response: No adverse reaction zb 14:25 Drug: foLIC Acid 1 mg Route: IVPB; Site: left jugular; zb 15:53 Follow up: Response: No adverse reaction; No change in condition zb 14:26 Drug: NS 0.9% 500 ml Route: IV; Rate: bolus; Site: left jugular; zb 15:54 Follow up: Response: No adverse reaction; IV Status: Completed infusion; IV Intake: zb 500ml 14:26 Drug: NS 0.9% 1000 ml Route: IV; Rate: 125 ml/hr; Site: left jugular; zb 15:53 Drug: Pepcid (famotidine) 20 mg Route: IVP; Site: left jugular; zb 19:14 Follow up: Response: No adverse reaction; Marked relief of symptoms zb 15:53 Drug: Aspirin Chewable Tablet 324 mg Route: PO; zb 19:14 Follow up: Response: No adverse reaction; Marked relief of symptoms zb 15:53 Drug: Lovenox (enoxaparin) 60 mg Route: Sub-Q; Site: right lower abdomen; zb 19:14 Follow up: Response: No adverse reaction; Marked relief of symptoms zb Disposition Summary: 05/30/21 14:53 Hospitalization Ordered Hospitalization Status: Observation aleshia Provider: Amy Nowak cha Condition: Stable aleshia Problem: new aleshia Symptoms: have improved aleshia Bed/Room Type: Standard aleshia Location: [facility] ER HOLD(05/30/21 19:16) Room Assignment: ERHOLD-(05/30/21 19:16) Diagnosis - Unspecified cirrhosis of liver aleshia - Adverse effect of amphetamines aleshia - Weakness aleshia - Cardiomegaly - elevated troponin aleshia Discharge Instructions: - Discharge Summary Sheet aleshia - Finding Treatment for Addiction aleshia - Cirrhosis aleshia - Substance Use Disorder aleshia - Illegal Drug Use Information, Adult aleshia Forms: - Medication Reconciliation Form aleshia - SBAR form aleshia Signatures: Dispatcher [employer] EDMS Rachel Oquendo RN Kyrie Kraft MD MD cha Lewis, Lynsay, RN RN ll1 Ford Mckenna 3 Caro Vazquez RN RN zb Corrections: (The following items were deleted from the chart) 17:03 14:42 CORONAVIRUS ordered. EDMS EDMS 19:16 14:53 Telemetry/MedSurg (observation) [facility] 19:16 14:53 aleshia
[2021-05-30 14:55] LABS: Blood Morphology Comment NOT SEEN (NOT SEEN); Platelet Estimate DECR; Platelets, Giant NOTED
--- NOTE | 2021-05-30 15:33 | RAD REPORT ---
EXAM DESCRIPTION: CT - Head Brain Wo Cont - 05/30/2021 3:19 pm CLINICAL HISTORY: Declining state;Mental status change COMPARISON: Chest Single View dated 05/30/2021 TECHNIQUE: Axial 5 mm thick images of the head were obtained without IV contrast. All CT scans are performed using dose optimization technique as appropriate and may include automated exposure control or mA/KV adjustment according to patient size. FINDINGS: No intracranial hemorrhage, mass, edema or shift of mid-line structures. No acute infarcti on changes seen. No abnormal extra-axial fluid collections. Ventricles are normal. Mastoid air cells are clear. Bilateral maxillary sinus air-fluid level mucosal thickening. No acute bony findings. IMPRESSION: No intracranial abnormality identifiable. Bilateral acute maxillary sinusitis.
[2021-05-30] MEDS ORDERED: ASPIRIN 81 MG CHEWABLE TABLET ONE (16:06)
[2021-05-30] MEDS ORDERED: FAMOTIDINE 20 MG/2 ML VIAL IV ONE (16:07)
[2021-05-30] MEDS ORDERED: ENOXAPARIN 60 MG/0.6 ML SQ ONE (16:07)
[2021-05-30] MEDS ORDERED: MORPHINE 2 MG/ML SYR IV PRN (17:45)
[2021-05-30] MEDS ORDERED: ONDANSETRON 4 MG/2 ML VIAL IV PRN (17:45)
[2021-05-30] MEDS ORDERED: ACETAMINOPHEN 500 MG TAB PO PRN (17:45)
[2021-05-30] MEDS ORDERED: NA CHLORIDE 0.9% 1,000 ML IV SCH (18:00)
[2021-05-30 21:00] VITALS: BMI 30.7
[2021-05-30] MEDS ORDERED: RISPERIDONE 0.25 MG TABLET PO SCH (21:00)
[2021-05-30] MEDS ORDERED: METOPROLOL TAR 25 MG TAB PO SCH (21:00)
[2021-05-30] MEDS ORDERED: METOPROLOL TAR 25 MG TAB ONE (21:43)
[2021-05-30] MEDS ORDERED: HALOPERIDOL LACT 5 MG/ML INJ IV PRN (21:54)
--- NOTE | 2021-05-30 21:54 | P.HP ---
Certification for Inpatient Patient admitted to: Observation With expected LOS: <2 Midnights Patient will require the following post-hospital care: None Practitioner: I am a practitioner with admitting privileges, knowledge of patient current condition, hospital course, and medical plan of care. Services: Services provided to patient in accordance with Admission requirements found in Title 42 Section 412.3 of the Code of Federal Regulations Patient History Date of Service: 05/30/21 Reason for admission: Elevated troponin; history of liver cirrhosis; history of cardiomyopathy History of Present Illness: Patient is a 55-year-old gentleman who has a significant history of cardiomyopathy with a prior ejection fraction of less than 20%. He had a heart catheterization done in 2019 which revealed normal coronaries. His cardiac disease is related to his history of alcohol abuse. On reviewing came into the hospital because he felt like he had worms coming out of him. Patient has a history of substance abuse. Patient uses crystal meth & benzodiazepines. He has damaged his heart significantly. He also has liver cirrhosis. Patient's renal function is elevated. Patient will be admitted for further evaluation. Patient has a history of paranoid delusions after drug abuse. He tried to commit suicide a few months prior. At this time, patient will be admitted for further evaluation. Allergies No Known Allergies Allergy (Unverified 05/04/19 02:56) Home Medications: Buspirone HCl [Buspar] 10 mg PO TID 05/04/19 Furosemide 80 mg PO DAILY 05/04/19 Acetaminophen with Codeine [Tylenol with-Codeine #3 Tablet] 1 tab PO Q8HP PRN 10/07/20 Spironolactone [Aldactone*] 50 mg PO DAILY 10/07/20 Metoprolol Tartrate [Lopressor*] 25 mg PO BID 30 Days #60 tab 10/08/20 - Past Medical/Surgical History Has patient received pneumonia vaccine in the past: No Diabetic: No -: cardiomegaly -: CHF -: COPD -: Bilateral leg lymphedema -: cellulitis -: hepatitis -: Cardiac catheterization - Family History Mother Medical History: Cancer, Other (see notes) Notes: epilepsy Father Medical History: Lung disease, Other (see notes) Notes: alcoholic - Social History Smoking Status: Current every day smoker Alcohol use: No CD- Drugs: No Review of Systems 10-point ROS is otherwise unremarkable Physical Examination - Vital Signs Temperature: 97.9 F Blood Pressure: 155/78 Pulse: 103 Respirations: 18 Pulse Ox (%): 98 - Physical Exam General: Alert, In no apparent distress, Oriented x3, Other (hallucinated) HEENT: Atraumatic, PERRLA, Mucous membr. moist/pink, EOMI, Sclerae nonicteric Neck: Supple, 2+ carotid pulse no bruit, No LAD, Without JVD or thyroid abnormality Respiratory: Crackles/rales Cardiovascular: Regular rate/rhythm, Normal S1 S2, Systolic murmur Gastrointestinal: Normal bowel sounds, Soft and benign, No tenderness, Distended Musculoskeletal: No tenderness Integumentary: No rashes Neurological: Sensation intact, Cranial nerves 3-12 intact, Abnormal gait, Abnormal speech, Abnormal affect Lymphatics: No axilla or inguinal lymphadenopathy - Studies Laboratory Data (last 24 hrs) 05/30/21 13:28: Sodium 139, Potassium 3.3 L, BUN 30 H, Creatinine 1.31 H, Glucose 146 H, Magnesium 1.9, Total Bilirubin 2.3 H, AST 196 H, ALT 176 H, Alkaline Phosphatase 83 05/30/21 07:06: PT 14.6 H, INR 1.27, APTT 32.4 05/30/21 07:06: WBC 6.30, Hgb 14.6, Hct 44.2, Plt Count 93 L Assessment & Plan - Problems (Diagnosis) (1) Elevated troponin Current Visit: No Status: Acute (2) Bipolar disorder Current Visit: Yes Status: Acute (3) Depression Current Visit: Yes Status: Acute (4) CHF (congestive heart failure) Current Visit: No Status: Acute Qualifiers: Heart failure type: systolic Heart failure chronicity: acute on chronic Qualified Code(s): I50.23 - Acute on chronic systolic (congestive) heart failure (5) COPD (chronic obstructive pulmonary disease) Current Visit: No Status: Acute Qualifiers: COPD type: COPD with acute lower respiratory infection Qualified Code(s): J44.0 - Chronic obstructive pulmonary disease with (acute) lower respiratory infection (6) Drug abuse Current Visit: No Status: Acute (7) Chronic acquired lymphedema Current Visit: No Status: Chronic (8) DM2 (diabetes mellitus, type 2) Current Visit: No Status: Chronic Qualifiers: - Plan 1. Serial troponins and EKG 2. Cardiology consultation; recent cardiac catheterization a year and a half ago was showing completely normal coronaries. According to Dr. Barrientos is note patient's troponins normally run between 0.08-0.2. Will rule him out for acute coronary syndrome. I think he may get worse if we keep him in the hospital but at this time his cardiac status needs to be assessed. 3. Monitor volume status closely. Renal function is elevated so I will gently hydrate him. Repeat bili [place]. Prior total bili has been fluctuating between 1.5-2.3. Ammonia is normal. Patient is awake and oriented to person place and time. He knows he is in the hospital. He knows he is May 30, 2021. He also knows his name. He is having some hallucinations. These are most likely drug related. 4. Anti-platelet therapy, anti coagulation, beta-fransisco, statin, and O2 as needed 5. IV morphine for pain 6. Haldol prn; will go ahead and give him Risperdal at night; monitor for cardiac dysrhythmia-has been on Geodon in the past. 7. GI and DVT prophylaxis Discharge Plan: Home Plan to discharge in: 24 Hours - Advance Directives Does patient have a Living Will: No Does patient have a Durable POA for Healthcare: No - Code Status/Comfort Care Code Status Assessed: Yes Code Status: Full Code Critical Care: No Time Spent Managing PTS Care (In Minutes): 45
--- NOTE | 2021-05-31 06:11 | P.DS ---
Admission Date: 05/30/21 Discharge Date: 05/31/21 Primary Care Provider: unknown Disposition: ROUTINE DISCHARGE Discharge Condition: GOOD Reason for Admission: Elevated troponin; history of liver cirrhosis; history of cardiomyopathy Consultations: Cardiology-Dr. Quijano Procedures: COVID: Negative CT Head: COMPARISON: Chest Single View dated 05/30/2021 TECHNIQUE: Axial 5 mm thick images of the head were obtained without IV contrast. All CT scans are performed using dose optimization technique as appropriate and may include automated exposure control or mA/KV adjustment according to patient size. FINDINGS: No intracranial hemorrhage, mass, edema or shift of mid-line structures. No acute infarction changes seen. No abnormal extra-axial fluid collections. Ventricles are normal. Mastoid air cells are clear. Bilateral maxillary sinus air-fluid level mucosal thickening. No acute bony findings. CXR: FINDINGS: No peripheral mass or consolidation. Trace amount of stranding at the left base is suspected to be atelectasis. There is some chronicity of the interstitial pattern present that could potentially mask minimal edema or infiltrate. No upper lobe vascular engorgement. Heart size is upper normal, accentuated by portable technique. The cardiac silhouette is much less prominent than seen on the comparison. No measurable pleural effusion and no pneumothorax. No acute bony abnormality seen. No acute aortic findings suspected. IMPRESSION: No acute cardiopulmonary process. Minimal left base atelectasis is present. Medical problem list: Visual hallucinations with history of paranoid schizophrenia, bipolar disorder complicated with drug abuse Positive for methamphetamines and benzodiazepine Elevated troponin with history of cardiomyopathy with prior ejection fraction less than 20% Hypertension Chronic systolic heart failure with ejection fraction less than 20% Brief History of Present Illness: 55-year-old male with history of CHF, cardiomyopathy, substance abuse, paranoid disorder. Patient presented to the emergency room with seen worms coming out of his body. Patient with history of substance abuse. Patient was positive for amphetamines and benzodiazepine. Patient without chest pain or shortness of breath. Patient found to have elevated troponin. Patient was admitted for further evaluation and treatment. Hospital Course: Patient presented with visual hallucinations. Patient with underlying paranoid schizophrenia, bipolar disorder complicated with drug abuse. Patient was positive for methamphetamines and benzodiazepine. The patient was monitored closely. No suicidal ideation noted. Symptoms resolved. Patient stable on current medication. Patient will continue with BuSpar 10 mg 3 times a day as directed. Recommend follow-up at [facility] to further monitor and address his condition. Lifestyle modification education provided. Recommend to discontinue methamphetamine use and benzodiazepine use. Patient also found to have elevated troponin. Patient with history of cardiomyopathy with prior ejection fraction of less than 20%. Patient also with history of hypertension and chronic systolic heart failure with ejection fraction less than 20%. Chest x-ray unremarkable. Patient without significant distress. Troponin was elevated. No chest pain, shortness of breath noted. Patient was seen and evaluated by cardiology. No intervention was required. Metoprolol was increased for better blood pressure control. At discharge patient will continue with his current medications of metoprolol 50 mg 1 pill twice daily, Aldactone 50 mg daily, and Lasix 80 mg daily. Recommend to continue 1500 cc/day fluid restriction and low-salt diet. Recommend follow-up with cardiology as an outpatient to further evaluate. Patient with prior heart catheterization in 2019 which showed normal coronaries. Patient may follow-up with cardiology in 1 to 2 weeks to follow-up hospitalization. Recommend o utpatient cardiac stress test and echocardiogram to further evaluate and treat. Vital Signs/Physical Exam: Temp Pulse Resp BP Pulse Ox 97.9 F 80 74 H 125/72 99 05/30/21 22:20 05/31/21 03:56 05/31/21 06:00 05/31/21 06:00 05/31/21 06:00 General: Alert, In no apparent distress, Oriented x3, Cooperative HEENT: Atraumatic Neck: Supple Respiratory: Clear to auscultation bilaterally Cardiovascular: Normal pulses, Regular rate/rhythm Gastrointestinal: Normal bowel sounds, No tenderness, No masses, No rebound, No guarding Musculoskeletal: No erythema, No tenderness, No warmth Integumentary: No tenderness/swelling Neurological: Normal speech, Normal strength at 5/5 x4 extr, Normal tone, Abnormal affect (Mild anxiety) Laboratory Data at Discharge: WBC 6.30 K/uL (4.3-10.9) 05/30/21 07:06 Hgb 14.6 g/dL (13.6-17.9) 05/30/21 07:06 Hct 44.2 % (39.6-49.0) 05/30/21 07:06 Plt Count 93 K/uL (152-406) L 05/30/21 07:06 PT 14.6 SECONDS (9.5-12.5) H 05/30/21 07:06 INR 1.27 05/30/21 07:06 APTT 32.4 SECONDS (24.3-36.9) 05/30/21 07:06 Sodium 139 mmol/L (136-145) 05/30/21 13:28 Potassium 3.3 mmol/L (3.5-5.1) L 05/30/21 13:28 BUN 30 mg/dL (7-18) H 05/30/21 13:28 Creatinine 1.31 mg/dL (0.55-1.3) H 05/30/21 13:28 Glucose 146 mg/dL (74-106) H 05/30/21 13:28 Magnesium 1.9 mg/dL (1.8-2.4) 05/30/21 13:28 Total Bilirubin 2.3 mg/dL (0.2-1.0) H 05/30/21 13:28 AST 196 U/L (15-37) H 05/30/21 13:28 ALT 176 U/L (12-78) H 05/30/21 13:28 Alkaline Phosphatase 83 U/L (45-117) 05/30/21 13:28 Troponin I 0.18 ng/mL (0.0-0.045) H 05/30/21 20:58 Home Medications: Buspirone HCl [Buspar] 10 mg PO TID 05/04/19 Furosemide 80 mg PO DAILY 05/04/19 Spironolactone [Aldactone*] 50 mg PO DAILY 10/07/20 Metoprolol Tartrate [Lopressor*] 50 mg PO BID #60 tab 05/31/21 New Medications: Metoprolol Tartrate [Lopressor*] 50 mg PO BID #60 tab Physician Discharge Instructions: Patient presented with visual hallucinations. Patient with underlying paranoid schizophrenia, bipolar disorder complicated with drug abuse. Patient was positive for methamphetamines and benzodiazepine. The patient was monitored closely. No suicidal ideation noted. Symptoms resolved. Patient stable on current medication. Patient will continue with BuSpar 10 mg 3 times a day as directed. Recommend follow-up at [facility] to further monitor and address his condition. Lifestyle modification education provided. Recommend to discontinue methamphetamine use and benzodiazepine use. Patient also found to have elevated troponin. Patient with history of cardiomyopathy with prior ejection fraction of less than 20%. Patient also with history of hypertension and chronic systolic heart failure with ejection fraction less than 20%. Chest x-ray unremarkable. Patient without significant distress. Troponin was elevated. No chest pain, shortness of breath noted. Patient was seen and evaluated by cardiology. No intervention was required. Metoprolol was increased for better blood pressure control. At discharge patient will continue with his current medications of metoprolol 50 mg 1 pill twice daily, Aldactone 50 mg daily, and Lasix 80 mg daily. Recommend to continue 1500 cc/day fluid restriction and low-salt diet. Recommend follow-up with cardiology as an outpatient to further evaluate. Patient with prior heart catheterization in 2019 which showed normal coronaries. Patient may follow-up with cardiology in 1 to 2 weeks to follow-up hospitalization. Recommend outpatient cardiac stress test and echocardiogram to further evaluate and treat. Diet: AHA Activity: Ad darrell Followup: JORDYN COBB [Primary Care Provider] - Time spent managing pt's care (in minutes): 55
[2021-05-31 07:29] LABS: Absolute Lymphocytes (CBC) 2.2 K/uL (0.7-4.9); Basophils % 1.2 % (0-1.3); Hematocrit 39.4 % (39.6-49.0); Lymphocytes % 41.2 % (15.3-44.8); MPV 11.3 fL (7.6-11.3); RBC Red Blood Cell Count 4.21 M/uL (4.33-5.43)
[2021-05-31] MEDS ORDERED: BUSPIRONE HCL 5 MG TABLET PO SCH (09:00)
[2021-05-31] MEDS ORDERED: SPIRONOLACTONE 25 MG TABLET PO SCH (09:00)
[2021-05-31] MEDS ORDERED: METOPROLOL TAR 50 MG TAB PO SCH (09:00)
[2021-05-31] MEDS ORDERED: FUROSEMIDE 40 MG TABLET PO SCH (09:00)
[2021-05-31] MEDS ORDERED: FUROSEMIDE 40 MG TABLET ONE (09:35)
[2021-05-31] MEDS ORDERED: METOPROLOL TAR 50 MG TAB ONE (09:35)
[2021-05-31] MEDS ORDERED: SPIRONOLACTONE 25 MG TABLET ONE (09:48)
--- NOTE | 2021-05-31 10:30 | EKG ---
Test Date: 2021-05-30 Test Time: 14:48:32 [employer]: JAQUELIN MEASUREMENT RESULTS: Intervals: Rate: 80 IA: 208 QRSD: 204 QT: 552 QTc: 636 [place]: P: 66 IA: 208 QRS: -85 T: 84 INTERPRETIVE STATEMENTS: Normal sinus rhythm Possible Left atrial enlargement Right bundle branch block Left anterior fascicular block Bifascicular block Inferior infarct, age undetermined T wave abnormality, consider lateral ischemia Abnormal ECG Compared to ECG 05/30/2021 12:14:53 Left anterior fascicular block now present Bifascicular block now present T-wave abnormality now present Electronically Signed On 05-31-21 10:29:11 CDT by Shane Quijano
--- NOTE | 2021-05-31 10:31 | EKG ---
Test Date: 2021-05-30 Test Time: 12:14:53 Residential Specialist: ALBERT MEASUREMENT RESULTS: Intervals: Rate: 94 SC: QRSD: 170 QT: 556 QTc: 695 [place]: P: SC: QRS: -87 T: 76 INTERPRETIVE STATEMENTS: sinus tach Left axis deviation Right bundle branch block Left ventricular hypertrophy with repolarization abnormality Inferior infarct, age undetermined Anteroseptal infarct, age undetermined Abnormal ECG Compared to ECG 10/08/2020 06:42:11 Left-axis deviation now present Left ventricular hypertrophy now present Early repolarization now present Myocardial infarct finding now present Electronically Signed On 05-31-21 10:30:04 CDT by Shane Quijano
[2021-05-31 10:51] LABS: Platelet Estimate DECR
[2021-05-31 10:52] LABS: Blood Morphology Comment NOT SEEN (NOT SEEN)
--- NOTE | 2021-05-31 12:26 | CON ---
Date of Consultation: 05/31/2021 He was admitted on 05/30/[address] Sandhu' service. Reason For Consultation: Elevated troponin. History Of Present Illness: Mr. Dhaliwal is a 55-year-old white male with a history of chronic systoli c congestive heart failure, normal heart catheterization. Coronary [place], his EF of 25% in 2019. Had been lost to follow up completely. He has a history of hypertension, COPD, cirrhosis, hepatitis. Sangita levin came in with syncope, was found to have elevated troponin. He had positive amphetamine and positiv e benzodiazepine on urinalysis. When I saw the patient, the patient was not having any cardiac sympt oms. He never had any chest pain, nausea, vomiting, diaphoresis, PND, orthopnea, pedal edema, or pal pitation. Allergies: NONE. Medications: At home include BuSpar, Lasix 80 mg daily, metoprolol 50 mg b.i.d., and Aldactone 50 mg daily. Review of Systems: Negative. Social History: Positive for drug use, alcohol use, tobacco use. Family History: Noncontributory. Physical Examination: General: He appeared to have a lot of tremors, weak. No complaint of chest pain or shortness of melyssa ath. Vital Signs: Stable. Afebrile. HEENT: Negative. Neck: Supple. No bruit. Chest: Clear. Cardiac: Revealed a regular rhythm and rate. No murmurs, gallops, or rubs. Abdomen: Benign. Extremities: Revealed no clubbing, cyanosis. He had trace edema. Laboratory Data: Creatinine was 1.31. Potassium was 3.3. AST was 196. ALT is 176. Troponin was 0 .16[place] [address]. Chest x-ray was negative. EKG showed bifascicular block with sinus rhythm. Impression And Plan: 1.Elevated troponin and BNP secondary to combination of renal insufficiency and chronic systolic con gestive heart failure. I would like to repeat an echo on him. He should be on Lasix, metoprolol, Al dactone. He should be on an ANAYA inhibitor. He should have close followup in my office. He may be a candidate for defibrillator. He may be a candidate for [employer] down the road. I will make sure, sangita levin comes and sees me in the office in the near future. No reason for any further cardiac workup other [place]. His catheterization was normal. 2.Drug abuse. 3.Renal insufficiency. 4.Hypokalemia. 5.Chronic obstructive pulmonary disease. 6.Hypertension, well controlled. 7.Cirrhosis with hepatitis with elevated liver function tests that are chronic. The case was discussed with Dr. Sandhu. He can go home and follow up with me in the near future. COSME/DAVID Voice ID: [id number] Report ID: [id number]
[2021-05-31 14:12] LABS: Albumin 2.4 g/dL (3.4-5.0); Bilirubin Total 1.7 mg/dL (0.2-1.0); Potassium 3.3 mmol/L (3.5-5.1); Protein, Total 6.6 g/dL (6.4-8.2); Troponin I 0.13 ng/mL (0.0-0.045)
[2021-05-31 14:14] LABS: Magnesium 1.8 mg/dL (1.8-2.4)
[2021-05-31 15:18] VITALS: BP 124/54; TEMP 97.8
[2021-05-31 15:19] VITALS: O2SAT 100
== END 2021-05-31 15:23 | disposition home or self-care (01) ==
LOC: ER 11:51 → ERHOLD 17:45
PROVIDERS: ADMIT Hospitalist; ATTEND Family Medicine
DX: I11.0 Hypertensive heart disease with heart failure (principal); I50.22 Chronic systolic (congestive) heart failure; N28.9 Disorder of kidney and ureter, unspecified; K74.60 Unspecified cirrhosis of liver; J44.9 Chronic obstructive pulmonary disease, unspecified; E87.6 Hypokalemia; Z20.822 Contact with and (suspected) exposure to COVID-19; R55 Syncope and collapse; F19.10 Other psychoactive substance abuse, uncomplicated; F20.0 Paranoid schizophrenia; F31.9 Bipolar disorder, unspecified; I42.9 Cardiomyopathy, unspecified; I89.0 Lymphedema, not elsewhere classified; E11.9 Type 2 diabetes mellitus without complications; F17.210 Nicotine dependence, cigarettes, uncomplicated
CPT/HCPCS: 96361; 93005 ×2; 85025 ×2; 80048; 36415; 80320; 82140; 83735 ×2; 80329 ×2; 85610; 80076; 85730; 84443; 81003; 84484 ×3; 80053; 83880 ×2; 80307; 70450; 71045; 96375; 96372; 96374; 99285; U0003; J1630; J3411; J1650; J7040; J7030; G0378 ×3

== ENCOUNTER 2021-06-01 17:12 | Emergency (ER) | payer OTHER ==
--- OUTSIDE RECORDS SUMMARY | 2021-06-01 17:20 | XMS REPORT | Continuity of Care Document ---
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 slightly ictericPOCT-GLUCOSE [id number] 12:55:00 Test Item Value Reference Range Interpretation Comments POC-GLUCOSE METER 117 mg/dL 70-[address] [facility] 6720 ([facility]) (test code = JOAQUIN Garcia [facility] 1538) [id number] VANCOMYCIN LEVEL, [id number] 12:14:00 Test Item Value Reference Range Interpretation Comments VANCOMYCIN TROUGH (BEAKER) (test 10.0 ug/mL 10.0-20.0 code = 522) POCT-GLUCOSE [id number] 06:26:00 Test Item Value Reference Range Interpretation Comments POC-GLUCOSE METER 121 mg/dL 70-[address] [facility] 67[address] [facility] (test code = JOAQUIN Garcia [facility] 1538) [address] RAPID DRUG SCREEN, [id number] 04:06:00 Test Item Value Reference Range Interpretation [...] situations. Chain of custody not maintained. Some vjwe-gjq-tawbzca medications, as well as adulterants, may cause inaccurate results. Clinical correlation should be applied. A more comprehensivedrug screen or confirmation of a detected drug may be performed upon request.POCT-GLUCOSE [id number] 00:34:00 Test Item Value Reference Range Interpretation Comments POC-GLUCOSE METER 171 mg/dL 70-[address] [facility] 6720 ([facility]) (test code = JOAQUIN Garcia [place] 1538) [address] POCT-GLUCOSE [id number] 18:00:00 Test Item Value Reference Range Interpretation Comments POC-GLUCOSE METER 283 mg/dL 70-[address] [facility] 6720 ([facility]) (test code = JOAQUIN Garcia [place] 1538) [address] RAD, LEG, [id number] 17:07:00Reason for exam:->evaluate for air concerning for [...] MDReport Verified Date/Time: 05/05/2019 17:07:13 Reading Location: [address] Ortho Consult Reading Room [id number] 16:54:00 Test Item Value Reference Range Interpretation Comments PARTIAL THROMBOPLASTIN TIME 32.0 seconds 22.5-36.0 ([facility]) (test code = 760) PROTHROMBIN [id number] 16:53:00 Test Item Value Reference Range Interpretation [...] mechanical heart valves.CBC W/PLT COUNT & AUTO [id number] 16:46:00 Test Item Value Reference Range Interpretation [...] = 700) BODY FLUID CELL COUNT WITH [id number] 16:32:00 Test Item Value Reference Range Interpretation Comments APPEARANCE FLUID (BEAKER) (test Cloudy Clear A code = 510) COLOR FLUID (BEAKER) (test code Red Colorless, Straw A = 511) RBC FLUID (BEAKER) (test code = 25421 /cu mm <=1 H 513) ADJUSTED WBC [...] Cup (test code = 2873) BASIC METABOLIC [id number] 16:31:00 Test Item Value Reference Range Interpretation [...] S NOT APPLICABLE FOR DIALYSIS PATIEN TS. [id number] 16:30:00 Test Item Value Reference Range Interpretation Comments PHOSPHORUS (BEAKER) (test code = 2.3 mg/dL 2.3-4.7 604) [id number] 16:30:00 Test Item Value Reference Range Interpretation Comments MAGNESIUM (BEAKER) (test code = 1.4 mg/dL 1.6-2.6 L 627) C-REACTIVE [id number] 16:30:00 Test Item Value Reference Range Interpretation Comments C-REACTIVE PROTEIN (BEAKER) (test 3.40 mg/dL 0.00-0.50 H code = 676) RAD, CHEST, 1 VIEW, NON [id number] 14:59:00Reason for exam:->dyspnea, history of CHF and [...] MDReport Verified Date/Time: 05/05/2019 14:59:38 Reading Location: [facility] B1 C013Y CT Body Reading Room RAD, KNEE, 3 VIEWS, [id number] 13:28:00 Reason for exam:->concern for septic arthritisShould this be performed at the bedside?->YesFINAL REPORT Right knee. HISTORY: Concern for septic arthritis. COMPARISON STUDY: None available. FINDINGS: Four views of the right knee demonstrate no evidence of fracture, malalignment or effusion. Atherosclerosis is seen. Signed: Tremayne Lundberg MDReport Verified Date/Time: 0 05/05/2019 13:28:26 Reading Location: [address] Reading Room POCT- GLUCOSE [id number] 12:03:00 Test Item Value Reference Range Interpretation Comments POC-GLUCOSE METER 209 mg/dL 70-110 H TESTED AT [place] [address] ([facility]) (test code = JOAQUIN ROMO [place] 1538) [id number]
[2021-06-01] MEDS ORDERED: NA CHLORIDE 0.9% 1,000 ML ONE (18:54)
[2021-06-01] MEDS ORDERED: LORazepam 2 MG/ML VIAL ONE (18:54)
[2021-06-01] MEDS ORDERED: TRAMADOL HCL 50 MG TAB ONE (18:58)
[2021-06-01 19:16] LABS: Urine Blood Trace-intact (Negative); Urine Glucose Negative (Negative); Urine Protein Negative (Negative); Urine Specific Gravity 1.015 (1.005-1.030)
[2021-06-01 19:26] LABS: Absolute Lymphocytes (CBC) 1.7 K/uL (0.7-4.9); Basophils % 0.8 % (0-1.3); Hematocrit 35.5 % (39.6-49.0); MPV 11.1 fL (7.6-11.3)
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
[2021-06-01 19:33] LABS: Protime INR 1.15
[2021-06-01 19:45] LABS: Barbiturates NEGATIVE (NEGATIVE); Benzodiazepines POSITIVE (NEGATIVE); Cocaine NEGATIVE (NEGATIVE); METHAMPHETAM POSITIVE (NEGATIVE); Methadone NEGATIVE (NEGATIVE); Opiates NEGATIVE (NEGATIVE); Phencyclidine NEGATIVE (NEGATIVE); THC Cannibis NEGATIVE (NEGATIVE)
[2021-06-01 19:58] LABS: ALT/SGPT 137 U/L (12-78); AST/SGOT 150 U/L (15-37); Albumin 2.4 g/dL (3.4-5.0); Alkaline Phosphatase 107 U/L (45-117); BUN Blood Urea Nitrogen 23 mg/dL (7-18); Bicarbonate 32 mmol/L (21-32); Bilirubin Direct 0.5 mg/dL (0-0.2); Glucose Level 83 mg/dL (74-106); Magnesium 1.7 mg/dL (1.8-2.4); NT PRO-BNP 3065 pg/mL (<125); Potassium 3.2 mmol/L (3.5-5.1); Protein, Total 6.6 g/dL (6.4-8.2); Sodium Level 142 mmol/L (136-145); Troponin (Emerg Dept Use Only) 0.07 ng/mL (0.0-0.045)
[2021-06-01 20:11] LABS: Blood Morphology Comment NOT SEEN (NOT SEEN); Platelet Estimate DECR; White Blood Cell Scan OK (OK)
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
[2021-06-01] MEDS ORDERED: POTASSIUM 25 MEQ EFFERV TAB ONE (21:57)
[2021-06-01 22:21] VITALS: TEMP 97.6
[2021-06-01 22:24] VITALS: BP 109/52; O2SAT 95
--- NOTE | 2021-06-02 13:00 | EKG ---
Test Date: 2021-06-01 Test Time: 19:30:14 Electrical High Tension Tester: PETRONA MEASUREMENT RESULTS: Intervals: Rate: 70 IL: 198 QRSD: 206 QT: 548 QTc: 591 [place]iteside: P: 60 IL: 198 QRS: -83 T: 90 INTERPRETIVE STATEMENTS: Sinus rhythm with premature atrial complexes with aberrant conduction Biatrial enlargement Right bundle branch block Left anterior fascicular block Bifascicular block Left ventricular hypertrophy with repolarization abnormality Abnormal ECG Compared to ECG 05/30/2021 14:48:32 Atrial premature complex(es) now present Aberrant conduction of supraventricular beat(s) now present Left ventricular hypertrophy now present Early repolarization now present Myocardial infarct finding no longer present Electronically Signed On 06-02-21 12:59:21 CDT by Shane Quijano
== END 2021-06-01 21:54 | disposition home or self-care (01) ==
LOC: ER 17:12
DX: R53.1 Weakness (principal); T43.625A Adverse effect of amphetamines, initial encounter; I10 Essential (primary) hypertension; I50.9 Heart failure, unspecified; F17.210 Nicotine dependence, cigarettes, uncomplicated
CPT/HCPCS: 96361; 93005; 85025; 80048; 36415; 83735; 85610; 80076; 81003; 84484; 83880; 80307; 71045; 96374; 99284; J7030

== ENCOUNTER 2021-08-08 07:02 | Inpatient (IN) | payer OTHER ==
--- OUTSIDE RECORDS SUMMARY | 2021-08-08 07:07 | XMS REPORT | Continuity of Care Document ---
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 Interpretation Comments MAGNESIUM (BEAKER) 1.8 mg/dL 1.6-2.6 Specimen slightly (test code = 627) hemolyzed [id number] 13:18:00 Test Item Value Reference Range Interpretation Comments PHOSPHORUS (BEAKER) 2.7 mg/dL 2.3-4.7 Specimen slightly (test code = 604) hemolyzed HEPATIC FUNCTION [id number] 13:18:00 Test Item Value Reference Range Interpretation [...] (test code = 353) hemolyzed ALT (SGPT) (AKER) 83 U/L 6-55 H Specimen slightly (test code = 347) hemolyzed Specimen slightly ictericPOCT-GLUCOSE [id number] 12:55:00 Test Item Value Reference Range Interpretation Comments POC-GLUCOSE METER 117 mg/dL 70-110 H TESTED AT [place] [address] ([facility] (test code = [facility] Radha [facility] 1538) [address] VANCOMYCIN LEVEL, [id number] 12:14:00 Test Item Value Reference Range Interpretation Comments VANCOMYCIN TROUGH ([facility] (test 10.0 ug/mL 10.0-20.0 code = 522) POCT-GLUCOSE [id number] 06:26:00 Test Item Value Reference Range Interpretation Comments POC-GLUCOSE METER 121 mg/dL 70-110 H TESTED AT [place] [address] ([facility] (test code = [facility] 1538) [address] RAPID DRUG SCREEN, [id number] 04:06:00 Test Item Value Reference Range Interpretation [...] situations. Chain of custody not maintained. Some sdhe-oty-ldrmjbe medications, as well as adulterants, may cause inaccurate results. Clinical correlation should be applied. A more comprehensivedrug screen or confirmation of a detected drug may be performed upon request.POCT-GLUCOSE [id number] 00:34:00 Test Item Value Reference Range Interpretation Comments POC-GLUCOSE METER 171 mg/dL 70-[address] [facility] 6720 [facility] (test code = JOAQU[place] 1538) [address] POCT-GLUCOSE [id number] 18:00:00 Test Item Value Reference Range Interpretation Comments POC-GLUCOSE METER 283 mg/dL 70-[address] [facility] 6720 ([facility] (test code = [facility] Radha [facility] 1538) [address] RAD, LEG, [id number] 17:07:00Reason for exam:->evaluate for air concerning for [...] seen adjacent to the proximal tibia. Signed: Ayanna Lundberg Verified Date/Time: 05/05/2019 17:07:13 Reading Location: [address] Ortho Consult Reading Room [id number] 16:54:00 Test Item Value Reference Range Interpretation Comments PARTIAL THROMBOPLASTIN TIME 32.0 seconds 22.5-36.0 (ELIZABETH) (test code = 760) PROTHROMBIN [id number] 16:53:00 Test Item Value Reference Range Interpretation [...] mechanical heart valves.CBC W/PLT COUNT & AUTO [id number] 16:46:00 Test Item Value Reference Range Interpretation [...] = 700) BODY FLUID CELL COUNT WITH [id number] 16:32:00 Test Item Value Reference Range Interpretation Comments APPEARANCE FLUID (BEAKER) (test Cloudy Clear A code = 510) COLOR FLUID (BEAKER) (test code Red Colorless, Straw A = 511) RBC FLUID (BEAKER) (test code = 37250 /cu mm <=1 H 513) ADJUSTED WBC [...] Cup (test code = 2873) BASIC METABOLIC [id number] 16:31:00 Test Item Value Reference Range Interpretation [...] S NOT APPLICABLE FOR DIALYSIS PATIEN TS. [id number] 16:30:00 Test Item Value Reference Range Interpretation Comments PHOSPHORUS (BEAKER) (test code = 2.3 mg/dL 2.3-4.7 604) [id number] 16:30:00 Test Item Value Reference Range Interpretation Comments MAGNESIUM (BEAKER) (test code = 1.4 mg/dL 1.6-2.6 L 627) C-REACTIVE [id number] 16:30:00 Test Item Value Reference Range Interpretation Comments C-REACTIVE PROTEIN (BEAKER) (test 3.40 mg/dL 0.00-0.50 H code = 676) RAD, CHEST, 1 VIEW, NON [id number] 14:59:00Reason for exam:->dyspnea, history of CHF and [...] MDReport Verified Date/Time: 05/05/2019 14:59:38 Reading Location: [address] Body Reading Room RAD, KNEE, 3 VIEWS, [id number] 13:28:00 Reason for exam:->concern for septic arthritisShould this be performed at the bedside?->YesFINAL REPORT Right knee. HISTORY: Concern for septic arthritis. COMPARISON STUDY: None available. FINDINGS: Four views of the right knee demonstrate no evidence of fracture, malalignment or effusion. Atherosclerosis is seen. Signed: Ayanna Lundberg Verified Date/Time: 0 05/05/2019 13:28:26 Reading Location: [facility] C013X Ortho Consult Reading Room POCT- GLUCOSE [id number] 12:03:00 Test Item Value Reference Range Interpretation Comments POC-GLUCOSE METER 209 mg/dL 70-110 H TESTED AT [place] [address] ([facility] (test code = JO[place] 1535) [id number]
[2021-08-08] MEDS ORDERED: FUROSEMIDE 20 MG/ 2ML VIAL ONE (08:32)
--- NOTE | 2021-08-08 08:48 | RAD REPORT ---
EXAM DESCRIPTION: RAD - Chest Single View - 08/08/2021 8:41 am CLINICAL HISTORY: Cough;Dyspnea Chest pain. COMPARISON: Chest Single View dated 06/01/2021; Chest Single View dated 05/30/2021; Chest Single View da supriya 02/15/2020; Chest Single View dated 11/12/2019 FINDINGS: Portable technique limits examination quality. Interstitial lung opacities are present, greatest in both lower lobes and on the right. The heart is moderately enlarged in size. Small pleural effusion likely present on the right. IMPRESSION: Moderate CHF versus moderate viral infection pattern.
[2021-08-08 09:55] LABS: Absolute Lymphocytes (CBC) 2.1 K/uL (0.7-4.9); Basophils % 1.1 % (0-1.3); Hematocrit 43.1 % (39.6-49.0); Lymphocytes % 35.4 % (15.3-44.8)
[2021-08-08 10:02] LABS: Protime INR 1.13
[2021-08-08 10:11] LABS: Ferritin 156.9 ng/mL (26-388)
[2021-08-08 10:13] LABS: ALT/SGPT 126 U/L (12-78); AST/SGOT 137 U/L (15-37); Albumin 2.7 g/dL (3.4-5.0); Alkaline Phosphatase 86 U/L (45-117); BUN Blood Urea Nitrogen 20 mg/dL (7-18); Bicarbonate 28 mmol/L (21-32); Bilirubin Direct 0.7 mg/dL (0-0.2); Bilirubin Total 1.6 mg/dL (0.2-1.0); C-Reactive Protein < 2.90 mg/L (<3.00); Glucose Level 144 mg/dL (74-106); Magnesium 1.7 mg/dL (1.8-2.4); NT PRO-BNP 6399 pg/mL (<125); Potassium 3.4 mmol/L (3.5-5.1); Protein, Total 7.3 g/dL (6.4-8.2); Sodium Level 141 mmol/L (136-145); Troponin (Emerg Dept Use Only) 0.09 ng/mL (0.0-0.045)
[2021-08-08 10:35] LABS: Platelet Estimate DECR; White Blood Cell Scan OK (OK)
[2021-08-08 10:36] LABS: Blood Morphology Comment NOT SEEN (NOT SEEN)
--- NOTE | 2021-08-08 11:06 | ER ---
Nurse's Notes [facility] Name: Bob Santana Age: 56 yrs Sex: Male : 1965 Arrival Date: 08/08/2021 Time: 07:07 Bed 14 Private MD: Diagnosis: Acute pulmonary edema;Unspecified combined systolic (congestive) and diastolic (congestive) heart failure;Hypoxemia;Dyspnea, unspecified Presentation: 08/08 08:29 Chief complaint: Patient states: Reports FOREIGN x 3 days. PMH of CHF. Coronavirus screen: aj2 Vaccine status: Patient reports being unvaccinated. Ebola Screen: No symptoms or risks identified at this time. Initial Sepsis Screen: Does the patient meet any 2 criteria? No. Patient's initial sepsis screen is negative. Initial Sepsis Screen: Does the patient have a suspected source of infection? No. Patient's initial sepsis screen is negative. Risk Assessment:. Risk Assessment: Do you want to hurt yourself or someone else? Patient reports no desire to harm self or others. 08:29 Method Of Arrival: EMS: [facility] aj2 08:29 Acuity: KISHAN 2 aj2 08:29 Onset of symptoms was August 05, 2021. aj2 13:38 Acuity: KISHAN 3 aj2 Triage Assessment: 08:41 General: Appears uncomfortable, obese, Behavior is calm, cooperative. Pain: Denies pain.aj2 Historical: - Home Meds: 08:41 buspirone 10 mg Oral tab 1 tab 3 times per day [Active]; carvedilol 3.125 mg Oral tab 1 aj2 tab 2 times per day [Active]; furosemide 80 mg Oral tab 1 tab once daily [Active]; spironolactone 50 mg Oral tab 1 tab once daily [Active]; - PMHx: 08:41 "irregular heartbeat"; aj2 08:41 cardiomegaly; CHF; Cirrhosis; COPD; Hepatitis; Hypertension; aj2 - PSHx: 08:41 R elbow SX; aj2 - Immunization history:: Vaccine Information Sheet provided Adult Immunizations unknown. - Social history:: Smoking status: unknown. - Family history:: not pertinent. - Hospitalizations: : No recent hospitalization is reported. Screenin:43 Abuse screen: Denies threats or abuse. Denies injuries from another. Nutritional aj2 screening: No deficits noted. Tuberculosis screening: No symptoms or risk factors identified. Fall Risk None identified. Assessment: 16:38 Reassessment: Patient appears in no apparent distress at this time. Patient is alert, aj2 oriented x 3, equal unlabored respirations, skin warm/dry/pink. General: Appears in no apparent distress. Behavior is calm, cooperative. Pain: Denies pain. 16:38 Reassessment: Report given to Greg CHENG. Patient transported to bed assignment in stable aj2 condition. A\\T\\Ox4, NAD noted.. Vital Signs: 08:29 BP 123 / 62; Pulse 77; Resp 18; Temp 98.2; Pulse Ox 99% ; aj2 09:33 BP 139 / 79; Pulse 86; Resp 18; Temp 98.1; Pulse Ox 99% on 2 lpm NC; aj2 13:39 BP 128 / 69; Pulse 86; Resp 22; Temp 97.1; Pulse Ox 95% on 2 lpm NC; aj2 ED Course: 07:07 Patient arrived in ED. em 07:13 Bill Augustine MD is Attending Physician. rn 08:02 Dominick Singh is Primary Nurse. aj2 08:02 CRP Sent. aj2 08:02 Ferritin Sent. aj2 08:03 Procalcitonin Sent. aj2 08:03 Basic Metabolic Panel Sent. aj2 08:03 BMP Sent. aj2 08:03 Blood Culture Adult (2) Sent. aj2 08:03 CBC with Diff Sent. aj2 08:03 Hepatic Function Sent. aj2 08:03 Magnesium Sent. aj2 08:03 NT PRO-BNP Sent. aj2 08:04 PT-INR Sent. aj2 08:04 Ptt, Activated Sent. aj2 08:04 Troponin (emerg Dept Use Only) Sent. aj2 08:40 Triage completed. aj2 08:41 XRAY CXR (1 view) In Process Unspecified. EDMS 08:41 Arm band placed on right wrist. aj2 08:43 Resting quietly. aj2 08:43 No provider procedures requiring assistance completed. IV is patent, is intact, Flushed aj2 Converted IV to saline lock on. 08:43 Patient has correct armband on for positive identification. aj2 09:33 EKG completed in triage. Results shown to . aj2 11:05 Alvin Moctezuma MD is Hospitalizing Provider. rn 13:39 No apparent distress. Resting quietly. aj2 13:39 IV is patent, is intact, Flushed left. aj2 16:37 Urine Drug Screen Sent. aj2 16:38 No apparent distress. aj2 16:38 IV Flushed right forearm. aj2 16:40 Missed attempt(s): 22 gauge in left forearm. Bleeding controlled, band aid applied, 3 catheter tip intact. 16:41 Inserted saline lock: 24 gauge in left hand, using aseptic technique. 3 Administered Medications: 08:05 Drug: Lasix (furosemide) 60 mg Route: IVP; Site: right forearm; 2 Outcome: 11:05 Decision to Hospitalize by Provider. rn 16:38 Admitted to Med/surg accompanied by mars, Report called to Greg CHENG aj2 17:38 Patient left the ED. Signatures: Dispatcher [employer] EDMS Tai Bland RN RN em Nieto, Roman, MD MD rn Smirch, Shelby, RN RN Nieves Marquez [facility] Dominick Singh 2 Corrections: (The following items were deleted from the chart) 08:31 08:03 CORONAVIRUS+MRANITA drawn and sent. aj2 EDMO
--- NOTE | 2021-08-08 11:06 | EDPHYS ---
Physician Documentation [facility] Name: Bob Santana Age: 56 yrs Sex: Male : 1965 Arrival Date: 08/08/2021 Time: 07:07 Bed 14 Private MD: ED Physician Bill Augustine HPI: 08/08 07:37 This 56 yrs old Male presents to ER via Unassigned with complaints of rn Shortness of breath. 07:37 The patient has shortness of breath at rest, with light activity. Onset: The rn symptoms/episode began/occurred 3 day(s) ago. Duration: The symptoms are intermittent. The patient's shortness of breath is aggravated by exertion, light activity, is alleviated by rest. Associated signs and symptoms: Pertinent positives: productive cough, Pertinent negatives: fever, hemoptysis. Severity of symptoms: At their worst the symptoms were moderate in the emergency department the symptoms are unchanged. The patient has experienced similar episodes in the past. The patient has not recently seen a physician. Patient reports approximately 3 days of shortness of breath. States legs are not as swollen as they have been before but feels like might have fluid in his lungs again. States compliant with Lasix. Denies any fever or chills. Positive productive cough with white sputum. Negative for hemoptysis. Denies any chest pain or abdominal pain. Denies any blood in stool.. Historical: - Home Meds: 08:41 buspirone 10 mg Oral tab 1 tab 3 times per day [Active]; carvedilol 3.125 mg Oral tab 1 aj2 tab 2 times per day [Active]; furosemide 80 mg Oral tab 1 tab once daily [Active]; spironolactone 50 mg Oral tab 1 tab once daily [Active]; - PMHx: 08:41 "irregular heartbeat"; aj2 08:41 cardiomegaly; CHF; Cirrhosis; COPD; Hepatitis; Hypertension; aj2 - PSHx: 08:41 R elbow SX; aj2 - Immunization history:: Vaccine Information Sheet provided Adult Immunizations unknown. - Social history:: Smoking status: unknown. - Family history:: not pertinent. - Hospitalizations: : No recent hospitalization is reported. ROS: 07:37 Constitutional: Negative for fever, chills, and weight loss, Eyes: Negative for injury, rn pain, redness, and discharge, ENT: Negative for injury, pain, and discharge, Neck: Negative for injury, pain, and swelling, Cardiovascular: Negative for chest pain, palpitations Respiratory: Positive for cough and shortness of breath Abdomen/GI: Negative for abdominal pain, nausea, vomiting, diarrhea, and constipation, Back: Negative for injury and pain, : Negative for injury, bleeding, discharge, and swelling, MS/Extremity: Negative for injury and deformity, Skin: Negative for injury, rash, and discoloration, Neuro: Negative for headache, numbness, tingling, and seizure. 07:37 All other systems are negative. Exam: 07:37 Constitutional: This is a well developed, well nourished patient who is awake, alert, rn and in no acute distress. Head/Face: Normocephalic, atraumatic. ENT: No stridor Cardiovascular: Regular rate and rhythm. No pulse deficits. Respiratory: No increased work of breathing, no retractions or nasal flaring. Abdomen/GI: Soft, non-tender Skin: Warm, dry MS/ Extremity: Pulses equal, no cyanosis. 2+ pitting edema bilateral lower extremity with chronic skin changes. Neuro: Awake and alert, GCS 15 Vital Signs: 08:29 BP 123 / 62; Pulse 77; Resp 18; Temp 98.2; Pulse Ox 99% ; aj2 09:33 BP 139 / 79; Pulse 86; Resp 18; Temp 98.1; Pulse Ox 99% on 2 lpm NC; aj2 13:39 BP 128 / 69; Pulse 86; Resp 22; Temp 97.1; Pulse Ox 95% on 2 lpm NC; aj2 MDM: 07:13 Patient medically screened. rn 11:02 Differential diagnosis: Anemia CHF exacerbation, pneumonia, Pneumothorax pulmonary rn edema. Data reviewed: vital signs, nurses notes, lab test result(s), EKG, radiologic studies, plain films, and as a result, I will admit patient. 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 Interpretation: acceptable. Test interpretation: by ED physician or midlevel provider: ECG, plain radiologic studies, Chest x-ray with moderate pulmonary edema. Counseling: I had a detailed discussion with the patient and/or guardian regarding: the historical points, exam findings, and any diagnostic results supporting the discharge/admit diagnosis, lab results, radiology results, the need for further work-up and treatment in the hospital. Response to treatment: the patient's symptoms have mildly improved after treatment, and as a result, I will admit patient. Admission orders: after a detailed discussion of the patient's condition and case, the admit orders are written by me. ED course: Patient with moderate CHF exacerbation. Still tachypneic and has a need for oxygen. Is 92% on 2 L oxygen. Responded somewhat to Lasix administration but will admit for further care and more diuresis to Dr. Moctezuma who states will be down to see the patient. 08/08 07:28 Order name: BMP rn 08/08 07:28 Order name: Blood Culture Adult (2) rn 08/08 07:28 Order name: CBC with Diff; Complete Time: 10:43 08/08 07:28 Order name: Hepatic Function; Complete Time: 10:43 rn 08/08 07:28 Order name: Magnesium; Complete Time: 10:43 rn 08/08 07:28 Order name: NT PRO-BNP; Complete Time: 10:43 rn 08/08 07:28 Order name: PT-INR; Complete Time: 10:43 rn 08/08 07:28 Order name: Ptt, Activated; Complete Time: 10:43 rn 08/08 07:28 Order name: Troponin (emerg Dept Use Only); Complete Time: 10:43 rn 08/08 07:29 Order name: Basic Metabolic Panel; Complete Time: 10:43 EDNC 08/08 07:31 Order name: Procalcitonin; Complete Time: 11:00 rn 08/08 07:31 Order name: CRP; Complete Time: 10:43 rn 08/08 07:31 Order name: Ferritin; Complete Time: 10:43 rn 08/08 07:28 Order name: XRAY CXR (1 view); Complete Time: 08:52 rn 08/08 09:24 Order name: SARS-COV-2 RT PCR; Complete Time: 10:43 EDNC 08/08 09:59 Order name: CBC Smear Scan; Complete Time: 10:43 EDNC 08/08 14:09 Order name: Comprehensive Metabolic Panel EDNC 08/08 14:09 Order name: Troponin I EDMS 08/08 14:09 Order name: Urine Drug Screen EDMS 08/08 14:09 Order name: CBC with Automated Diff EDMS 08/08 14:09 Order name: CBC with Automated Diff EDMS 08/08 14:09 Order name: CBC with Automated Diff EDMS 08/08 14:09 Order name: CBC with Automated Diff EDMS 08/08 14:09 Order name: Comprehensive Metabolic Panel EDMS 08/08 14:09 Order name: Comprehensive Metabolic Panel EDMS 08/08 14:09 Order name: Comprehensive Metabolic Panel EDMS 08/08 16:54 Order name: Protime (+INR) EDMS 08/08 17:26 Order name: Ammonia EDMS 08/08 07:28 Order name: EKG; Complete Time: 07:30 rn 08/08 07:28 Order name: Cardiac monitoring; Complete Time: 08:03 rn 08/08 07:28 Order name: EKG - Nurse/Tech; Complete Time: 08:03 rn 08/08 07:28 Order name: IV Saline Lock; Complete Time: 08:03 rn 08/08 07:28 Order name: Labs collected and sent; Complete Time: 08:03 rn 08/08 07:28 Order name: O2 Per Protocol; Complete Time: 08:03 rn 08/08 07:28 Order name: O2 Sat Monitoring; Complete Time: 08:03 rn 08/08 08:27 Order name: Labs - recollect needed: recollect all tubes/ hemolyzed; Complete Time: eb 09:33 08/08 14:02 Order name: Diet Heart Healthy; Complete Time: 14:02 eb 08/08 14:09 Order name: CONS Physician Consult EDNC Administered Medications: 08:05 Drug: Lasix (furosemide) 60 mg Route: IVP; Site: right forearm; aj2 Disposition Summary: 08/08/21 11:05 Hospitalization Ordered Hospitalization Status: Inpatient Admission rn Provider: Alvin Moctezuma rn Location: Telemetry/MedSurg (Inpatient) rn Condition: Stable rn Problem: an acute exacerbation rn Symptoms: have improved rn Bed/Room Type: Standard rn Room Assignment: 232(08/08/21 15:19) dw Diagnosis - Acute pulmonary edema rn - Unspecified combined systolic (congestive) and diastolic (congestive) heart failure rn - Hypoxemia rn - Dyspnea, unspecified rn Forms: - Medication Reconciliation Form rn - SBAR form rn Signatures: Dispatcher [employer] EDAbbie Canales RN RN dw Nieto, Roman, MD MD rn Botello, Elizabeth eb Jenkins, Angelea aj2 Corrections: (The following items were deleted from the chart) 08:31 07:30 CORONAVIRUS+.BRZ ordered. [facility] EDNC 15:18 11:05 rn duncan 15:19 15:18 202 dw duncan
--- NOTE | 2021-08-08 14:14 | P.HP ---
Certification for Inpatient Patient admitted to: Inpatient With expected LOS: >2 Midnights Patient will require the following post-hospital care: None Practitioner: I am a practitioner with admitting privileges, knowledge of patient current condition, hospital course, and medical plan of care. Services: Services provided to patient in accordance with Admission requirements found in Title 42 Section 412.3 of the Code of Federal Regulations Patient History Date of Service: 08/08/21 Primary Care Provider: none Reason for admission: chf exacerbation History of Present Illness: Patient is a troubled gentleman with a history of drug and alcohol abuse. He last had an echo 2 years ago showed his ef was inthe 20% The patient admits to using amphetamines 2 days ago. Became sob and came to the ER He was last seen 2 months ago. Most likely he did not follow up. He has been trying to controll himself with his lasix is on 80mg po at home. Allergies No Known Allergies Allergy (Unverified 05/04/19 02:56) Home Medications: Buspirone HCl [Buspar] 10 mg PO TID 05/04/19 Furosemide 80 mg PO DAILY 05/04/19 Spironolactone [Aldactone*] 50 mg PO DAILY 10/07/20 Metoprolol Tartrate [Lopressor*] 50 mg PO BID #60 tab 05/31/21 - Past Medical/Surgical History Diabetic: No -: cardiomegaly -: CHF -: COPD -: Bilateral leg lymphedema -: cellulitis -: hepatitis -: Cardiac catheterization - Family History Mother -: Cancer, Other (see notes) Notes: epilepsy Father -: Lung disease, Other (see notes) Notes: alcoholic - Social History Alcohol use: No CD- Drugs: No Caffeine use: No Review of Systems 10-point ROS is otherwise unremarkable Respiratory: Shortness of Breath Cardiovascular: Edema Physical Examination - Physical Exam General: Alert, In no apparent distress HEENT: Atraumatic, PERRLA, Mucous membr. moist/pink, EOMI, Sclerae nonicteric Neck: Supple, 2+ carotid pulse no bruit, No LAD, Without JVD or thyroid abnormality Respiratory: Clear to auscultation bilaterally, Normal air movement Cardiovascular: Regular rate/rhythm, Normal S1 S2, Edema (1+) Gastrointestinal: Normal bowel sounds, No tenderness Musculoskeletal: No tenderness Integumentary: No rashes Neurological: Normal gait, Normal speech, Normal strength at 5/5 x4 extr, Normal tone, Normal affect Lymphatics: No axilla or inguinal lymphadenopathy - Studies Laboratory Data (last 24 hrs) 08/08/21 09:24: PT 13.0 H, INR 1.13, APTT 32.5 08/08/21 09:24: WBC 5.90, Hgb 14.2, Hct 43.1, Plt Count 90 L 08/08/21 09:24: Sodium 141, Potassium 3.4 L, BUN 20 H, Creatinine 0.79, Glucose 144 H, Magnesium 1.7 L, Total Bilirubin 1.6 H, AST 137 H, ALT 126 H, Alkaline Phosphatase 86 Assessment and Plan - Problems (Diagnosis) (1) CHF (congestive heart failure) Current Visit: No Status: Acute Plan: will admit the patient check start him lasix bid. Will start him on his home meds and a low dose aceI. Hold the beta fransisco as he recently had a methampetamine. Will consult cardiology. Qualifiers: Heart failure type: systolic Heart failure chronicity: acute on chronic Qualified Code(s): I50.23 - Acute on chronic systolic (congestive) heart failure (2) Cirrhosis of liver Current Visit: Yes Status: Acute Plan: stable at this time. Will monitor his pt. Qualifiers: Hepatic cirrhosis type: alcoholic cirrhosis (3) Drug abuse Current Visit: No Status: Chronic Plan: check a uds on this patient Discharge Plan: Home Plan to discharge in: 48 Hours - Advance Directives Does patient have a Living Will: No Does patient have a Durable POA for Healthcare: No - Code Status/Comfort Care Code Status Assessed: No Code Status: Full Code Physician Review: Patient Assessed, Agree with Above Assessment and Plan Critical Care: No Time Spent Managing Pts Care (In Minutes): 45
[2021-08-08 16:39] LABS: Protime INR 1.18
[2021-08-08 17:59] VITALS: BMI 30.7
[2021-08-08] MEDS: ENOXAPARIN 40 MG/0.4 ML SQ SCH (18:09)
[2021-08-08] MEDS: FUROSEMIDE 40 MG/4 ML VIAL IV SCH (18:09)
[2021-08-08 19:44] LABS: Barbiturates NEGATIVE (NEGATIVE); Benzodiazepines NEGATIVE (NEGATIVE); Cocaine NEGATIVE (NEGATIVE); METHAMPHETAM POSITIVE (NEGATIVE); Methadone NEGATIVE (NEGATIVE); Opiates NEGATIVE (NEGATIVE); Phencyclidine NEGATIVE (NEGATIVE); THC Cannibis NEGATIVE (NEGATIVE)
[2021-08-08] MEDS ORDERED: HOME MED 1 EA UNK (Buspirone Hcl [Buspar] 10 MG Tablet) PO SCH (21:00)
[2021-08-08] MEDS: BUSPIRONE HCL 5 MG TABLET PO SCH (21:38)
[2021-08-09 06:40] LABS: Absolute Lymphocytes (CBC) 2.7 K/uL (0.7-4.9); Basophils % 0.9 % (0-1.3); Hematocrit 41.3 % (39.6-49.0); Lymphocytes % 35.7 % (15.3-44.8); MPV 10.9 fL (7.6-11.3); RBC Red Blood Cell Count 4.45 M/uL (4.33-5.43)
[2021-08-09 06:43] LABS: Albumin 2.5 g/dL (3.4-5.0); Bilirubin Total 1.6 mg/dL (0.2-1.0); Protein, Total 6.9 g/dL (6.4-8.2)
[2021-08-09 06:44] LABS: Potassium 3.8 mmol/L (3.5-5.1)
[2021-08-09] MEDS ORDERED: ALBUTEROL 2.5 MG/3 ML NEB SOL NEB PRN (08:51)
[2021-08-09] MEDS: lisinopriL 5 MG TAB PO SCH (09:05)
[2021-08-09] MEDS: FUROSEMIDE 40 MG/4 ML VIAL IV SCH ×2 (09:05→16:17)
[2021-08-09] MEDS: BUSPIRONE HCL 5 MG TABLET PO SCH ×3 (09:05→21:17)
[2021-08-09] MEDS: SPIRONOLACTONE 25 MG TABLET PO SCH (09:05)
[2021-08-09] MEDS ORDERED: LEVALBUTEROL 0.63 MG/3 ML NEB ONE (09:45)
[2021-08-09 09:49] LABS: Blood Morphology Comment NOT SEEN (NOT SEEN); Platelet Estimate DECR; White Blood Cell Scan OK (OK)
--- NOTE | 2021-08-09 12:30 | P.PN ---
Subjective Date of Service: 08/09/21 Primary Care Provider: none Chief Complaint: chf exacerbation Subjective: No new changes diuresised 700ml Review of Systems 10-point ROS is otherwise unremarkable Respiratory: SOB with Excertion Cardiovascular: Edema Physical Examination - Vital Signs Temperature: 97.5 F Blood Pressure: 129/66 Pulse: 89 Respirations: 15 Pulse Ox (%): 97 - Physical Exam General: Alert, In no apparent distress HEENT: Atraumatic, PERRLA, EOMI Neck: Supple, JVD not distended Respiratory: Crackles/rales (basilar) Cardiovascular: Regular rate/rhythm, Normal S1 S2, Edema (2+) Gastrointestinal: Normal bowel sounds, No tenderness Musculoskeletal: No tenderness Integumentary: No rashes Neurological: Normal speech, Normal tone, Normal affect Lymphatics: No axilla or inguinal lymphadenopathy Assessment & Plan - Problems (Diagnosis) (1) CHF (congestive heart failure) Current Visit: No Status: Acute Plan: will admit the patient check start him lasix bid. Will start him on his home meds and a low dose aceI. Hold the beta fransisco as he recently had a methampetamine. Will consult cardiology. 08/10 Will continue to diuresis him in house. Due to his addiction he is not a good candidate for discharge. There is a high risk of non compliance and being readmitted Qualifiers: Heart failure type: systolic Heart failure chronicity: acute on chronic Qualified Code(s): I50.23 - Acute on chronic systolic (congestive) heart failure (2) Cirrhosis of liver Current Visit: Yes Status: Acute Plan: stable at this time. Will monitor his pt. Qualifiers: Hepatic cirrhosis type: alcoholic cirrhosis (3) Drug abuse Current Visit: No Status: Chronic Plan: check a uds on this patient Discharge Plan: Home Plan to discharge in: 24 Hours - Code Status/Comfort Care Code Status Assessed: No Physician Review: Patient Assessed, Agree with Above Assessment and Plan Critical Care: No Time Spent Managing Pts Care (In Minutes): 20
[2021-08-09] MEDS: ENOXAPARIN 40 MG/0.4 ML SQ SCH (16:17)
[2021-08-10 07:31] LABS: Albumin 2.7 g/dL (3.4-5.0); Bilirubin Total 1.2 mg/dL (0.2-1.0); Potassium 3.4 mmol/L (3.5-5.1); Protein, Total 7.4 g/dL (6.4-8.2)
[2021-08-10 07:33] LABS: Absolute Lymphocytes (CBC) 2.3 K/uL (0.7-4.9); Basophils % 0.7 % (0-1.3); Hematocrit 44.8 % (39.6-49.0); Lymphocytes % 32.3 % (15.3-44.8); RBC Red Blood Cell Count 4.78 M/uL (4.33-5.43)
[2021-08-10] MEDS: FUROSEMIDE 40 MG/4 ML VIAL IV SCH (08:25)
[2021-08-10] MEDS: BUSPIRONE HCL 5 MG TABLET PO SCH (08:26)
[2021-08-10] MEDS: lisinopriL 5 MG TAB PO SCH (08:26)
[2021-08-10] MEDS: SPIRONOLACTONE 25 MG TABLET PO SCH (08:27)
--- NOTE | 2021-08-10 11:32 | P.DS ---
Admission Date: 08/08/21 Discharge Date: 08/10/21 Primary Care Provider: none Disposition: ROUTINE DISCHARGE Discharge Condition: GOOD Reason for Admission: chf exacerbation - Problems (1) CHF (congestive heart failure) Current Visit: No Status: Acute Qualifiers: Heart failure type: systolic Heart failure chronicity: acute on chronic Qualified Code(s): I50.23 - Acute on chronic systolic (congestive) heart failure (2) Cirrhosis of liver Current Visit: Yes Status: Acute Qualifiers: Hepatic cirrhosis type: alcoholic cirrhosis (3) Drug abuse Current Visit: No Status: Chronic Brief History of Present Illness: Patient is a troubled gentleman with a history of drug and alcohol abuse. He last had an echo 2 years ago showed his ef was inthe 20% The patient admits to using amphetamines 2 days ago. Became sob and came to the ER He was last seen 2 months ago. Most likely he did not follow up. He has been trying to controll himself with his lasix is on 80mg po at home. Hospital Course: patient was admittied. Diuresised well. He wants to go home this morning. Is worried about his house. Will discharge him on lasix. Have him follow up with myself and Dr. Quijano. Thank you for allowing me to take part in the patients care. Vital Signs/Physical Exam: Temp Pulse Resp BP Pulse Ox 98.3 F 90 18 130/60 96 08/10/21 08:00 08/10/21 08:27 08/10/21 08:00 08/10/21 08:27 08/10/21 08:00 General: Alert, In no apparent distress HEENT: Atraumatic, PERRLA, EOMI Neck: Supple, JVD not distended Respiratory: Clear to auscultation bilaterally, Normal air movement Cardiovascular: Regular rate/rhythm, Normal S1 S2 Gastrointestinal: Normal bowel sounds, No tenderness Musculoskeletal: No tenderness Integumentary: No rashes Neurological: Normal speech, Normal tone, Normal affect Lymphatics: No axilla or inguinal lymphadenopathy Laboratory Data at Discharge: WBC 7.00 K/uL (4.3-10.9) 08/10/21 06:18 Hgb 14.9 g/dL (13.6-17.9) 08/10/21 06:18 Hct 44.8 % (39.6-49.0) 08/10/21 06:18 Plt Count 83 K/uL (152-406) L 08/10/21 06:18 PT 13.6 SECONDS (9.5-12.5) H 08/08/21 16:25 INR 1.18 08/08/21 16:25 APTT 32.5 SECONDS (24.3-36.9) 08/08/21 09:24 Sodium 139 mmol/L (136-145) 08/10/21 06:18 Potassium 3.4 mmol/L (3.5-5.1) L 08/10/21 06:18 BUN 19 mg/dL (7-18) H 08/10/21 06:18 Creatinine 0.92 mg/dL (0.55-1.3) 08/10/21 06:18 Glucose 207 mg/dL (74-106) H 08/10/21 06:18 Magnesium 1.7 mg/dL (1.8-2.4) L 08/08/21 09:24 Total Bilirubin 1.2 mg/dL (0.2-1.0) H 08/10/21 06:18 AST 125 U/L (15-37) H 08/10/21 06:18 ALT 122 U/L (12-78) H 08/10/21 06:18 Alkaline Phosphatase 93 U/L (45-117) 08/10/21 06:18 Troponin I 0.06 ng/mL (0.0-0.045) H 08/08/21 14:31 Home Medications: Buspirone HCl [Buspar] 10 mg PO TID 05/04/19 Furosemide 80 mg PO DAILY 30 Days #30 tab 08/10/21 New Medications: Furosemide 80 mg PO DAILY 30 Days #30 tab Followup: Alvin Moctezuma MD [ACTIVE - CAN ADMIT] - 1-2 Weeks Shane Quijano MD [ACTIVE - CAN ADMIT] - 1 Week Time spent managing pt's care (in minutes): 30
[2021-08-10 11:59] VITALS: BP 144/67; TEMP 98
[2021-08-10 12:51] VITALS: O2SAT 95
--- NOTE | 2021-08-13 14:44 | CON ---
Date of Consultation: 08/09/2021 Admission Diagnosis: Congestive heart failure. History Of Present Illness: Mr. Dhaliwal is 56, known to us from previous office visits and admissions . He takes multiple medication and mainly Coreg, Lasix, and Aldactone. He has a known ejection frac tion of 20% to 25% in 2019. The patient needs to have followup closer as far as his heart is concern ed. He also has cirrhosis, hypertension, atrial fibrillation, came in with COPD and CHF exacerbation that has already improved. He does have slightly elevated troponin, chronic renal disease, history of alcohol abuse as well. Denied any chest pain. Denied any syncope. Denied any fever or chills. Denied any nausea, vomiting, diaphoresis. Has had PND, orthopnea, pedal edema. No palpitation and n o syncope. Allergies: NONE. Medications: Include Coreg, Lasix, Aldactone. Review of Systems: Negative. Social History: Positive for alcohol. Family History: Noncontributory. Physical Examination: Vital Signs: Stable. Afebrile. Sinus rhythm. O2 saturation is adequate. No fever. Chest: Revealed rales both bases. Cardiac: Revealed a regular rhythm and rate with an S3 gallop. Abdomen: Benign. Extremities: Revealed 1+ edema bilaterally. Diagnostic Data: Showed elevated troponin, ejection fraction of 20% to 25%. in 2019. Impression And Plan: 1.Acute on chronic systolic congestive heart failure. 2.Chronic obstructive pulmonary disease. 3.Atrial fibrillation. 4.Hypertension. 5.Cirrhosis. The patient should be on Coreg, Lasix, Aldactone. He should be on an anticoagulant, preferably Xarel to or Eliquis. He should have close followup for maybe catheterization, possible defibrillator down the road. He may not be a good candidate for Entresto. I would continue his present regimen otherwi se. He can go home whenever it is okay with Dr. Moctezuma. NB/MODL Voice ID: [id number] Report ID: [id number]
== END 2021-08-10 13:00 | disposition home or self-care (01) | DRG 292 ==
LOC: ER 07:02 → ERHOLD 14:12 → 2ND 17:15
PROVIDERS: ADMIT Internal Medicine; ATTEND Internal Medicine
DX: I11.0 Hypertensive heart disease with heart failure (principal); B19.9 Unspecified viral hepatitis without hepatic coma; I50.23 Acute on chronic systolic (congestive) heart failure; K70.30 Alcoholic cirrhosis of liver without ascites; F15.10 Other stimulant abuse, uncomplicated; J44.9 Chronic obstructive pulmonary disease, unspecified; I48.91 Unspecified atrial fibrillation; Z20.822 Contact with and (suspected) exposure to COVID-19
CPT/HCPCS: 36415; 71045; 80048; 80053; 80076; 80307; 82140; 82728; 83735; 83880; 84145; 84484; 85025; 85610; 85730; 86140; 87040; 93005; 94640; 96374; 99285; J1650; J1940; U0003

== ENCOUNTER 2021-08-25 10:40 | Emergency (ER) | payer OTHER ==
--- NOTE | 2021-08-25 11:42 | RAD REPORT ---
EXAM DESCRIPTION: RAD - Chest Single View - 08/25/2021 11:28 am CLINICAL HISTORY: SOB COMPARISON: Chest Single View dated 08/08/2021; Chest Single View dated 06/01/2021; Chest Single View d ated 05/30/2021; Chest Single View dated 02/15/2020 FINDINGS: Lines: None. Lungs: Diffuse prominence of the pulmonary vasculature. Pleural: Small bilateral effusions Cardiac: Cardiomegaly. Bones: No acute fractures. Other: IMPRESSION: Edema/congestive heart failure which is similar to 08/08/2021.
[2021-08-25 12:01] LABS: Protime INR 1.16
[2021-08-25 12:07] LABS: Absolute Lymphocytes (CBC) 1.8 K/uL (0.7-4.9); Basophils % 1.1 % (0-1.3); Hematocrit 39.4 % (39.6-49.0); Lymphocytes % 33.4 % (15.3-44.8); MPV 10.9 fL (7.6-11.3); RBC Red Blood Cell Count 4.16 M/uL (4.33-5.43)
[2021-08-25 12:14] LABS: Arterial Blood Carboxyhemoglob 2.9 % (0-1.5); Blood Gas Oxyhemoglobin 88.1 % (94-97); Blood O2 Saturation 91.5 % (92-98.5)
[2021-08-25 12:30] LABS: Albumin 2.5 g/dL (3.4-5.0); Bilirubin Direct 0.6 mg/dL (0-0.2); Bilirubin Total 1.3 mg/dL (0.2-1.0); Magnesium 1.8 mg/dL (1.8-2.4); Potassium 3.8 mmol/L (3.5-5.1); Protein, Total 6.7 g/dL (6.4-8.2); Troponin (Emerg Dept Use Only) 0.12 ng/mL (0.0-0.045)
[2021-08-25 12:53] LABS: Blood Morphology Comment NOT SEEN (NOT SEEN); Platelet Estimate DECR; White Blood Cell Scan OK (OK)
--- NOTE | 2021-08-25 14:30 | EDPHYS ---
Physician Documentation [facility] Name: Bob Santana Age: 56 yrs Sex: Male : 1965 Arrival Date: 08/25/2021 Time: 10:46 Bed 17 Private MD: ED Physician Abdias Duncan HPI: 08/25 15:36 This 56 yrs old Male presents to ER via EMS with complaints of Shortness Of kdr Breath. 15:36 The patient has shortness of breath at rest, with light activity, States that he has kdr been unable to get sleep for the last week or so. Onset: The symptoms/episode began/occurred gradually, 1 week(s) ago. Duration: The symptoms are intermittent. The patient's shortness of breath is aggravated by nothing, is alleviated by nothing. Associated signs and symptoms: Pertinent positives: This patient does not have any pertinent positive signs or symptoms associated with shortness of breath. Pertinent negatives: chest pain, non-productive cough, productive cough, diaphoresis, dizziness, fever, hemoptysis, nausea, numbness in extremities, visual changes, vomiting. Severity of symptoms: At their worst the symptoms were mild in the emergency department the symptoms are unchanged. The patient has experienced similar episodes in the past, a few times. The patient has not recently seen a physician, The patient has been recently seen at the [facility] Emergency Department, a couple of weeks ago. Historical: - Allergies: 10:52 No Known Allergies; es2 - Home Meds: 10:52 buspirone 10 mg Oral tab 1 tab 3 times per day [Active]; carvedilol 3.125 mg Oral tab 1 es2 tab 2 times per day [Active]; furosemide 80 mg Oral tab 1 tab once daily [Active]; spironolactone 50 mg Oral tab 1 tab once daily [Active]; - PMHx: 10:52 "irregular heartbeat"; cardiomegaly; Cirrhosis; COPD; CHF; Hypertension; Hepatitis; es2 - PSHx: 10:52 R elbow SX; es2 - Immunization history:: Client reports having NOT received the Covid vaccine. - Social history:: Smoking status: Patient reports the use of cigarette tobacco products, 2 cigarettes a day, per patient. ROS: 15:36 Constitutional: Negative for fever, chills, and weight loss, has had weakness and kdr fatigue Eyes: Negative for injury, pain, redness, and discharge, Neck: Negative for injury, pain, and swelling, Cardiovascular: Negative for chest pain, palpitations, and edema, Abdomen/GI: Negative for abdominal pain, nausea, vomiting, diarrhea, and constipation, Back: Negative for injury and pain, : Negative for injury, bleeding, discharge, and swelling, MS/Extremity: Negative for injury and deformity, Skin: Negative for injury, rash, and discoloration, Psych: Negative for depression, anxiety, suicide ideation, homicidal ideation, and hallucinations, Allergy/Immunology: Negative for hives, rash, and allergies, Endocrine: Negative for neck swelling, polydipsia, polyuria, polyphagia, and marked weight changes, Hematologic/Lymphatic: Negative for swollen nodes, abnormal bleeding, and unusual bruising. 15:36 Respiratory: Positive for dyspnea on exertion, shortness of breath, Negative for hemoptysis, orthopnea, wheezing. 15:36 Neuro: Positive for weakness, Sleep deprivation. Exam: 11:39 ECG was reviewed by the Attending Physician. kdr 15:36 Constitutional: This is a well developed, well nourished patient who is awake, alert, kdr and in no acute distress. Head/Face: Normocephalic, atraumatic. Eyes: Pupils equal round and reactive to light, extra-ocular motions intact. Lids and lashes normal. Conjunctiva and sclera are non-icteric and not injected. Cornea within normal limits. Periorbital areas with no swelling, redness, or edema. Neck: Trachea midline, no thyromegaly or masses palpated, and no cervical lymphadenopathy. Supple, full range of motion without nuchal rigidity, or vertebral point tenderness. No Meningismus. Chest/axilla: Normal chest wall appearance and motion. Nontender with no deformity. No lesions are appreciated. Cardiovascular: Regular rate and rhythm with a normal S1 and S2. No gallops, murmurs, or rubs. Normal PMI, no JVD. No pulse deficits. Respiratory: Lungs have equal breath sounds bilaterally, clear to auscultation and percussion. No rales, rhonchi or wheezes noted. No increased work of breathing, no retractions or nasal flaring. Abdomen/GI: Soft, non-tender, with normal bowel sounds. No distension or tympany. No guarding or rebound. No evidence of tenderness throughout. Back: No spinal tenderness. No costovertebral tenderness. Full range of motion. Skin: Warm, dry with normal turgor. Normal color with no rashes, no lesions, and no evidence of cellulitis. MS/ Extremity: Pulses equal, no cyanosis. Neurovascular intact. Full, normal range of motion. Neuro: Awake and alert, GCS 15, oriented to person, place, time, and situation. Cranial nerves II-XII grossly intact. Motor strength 5/5 in all extremities. Sensory grossly intact. Cerebellar exam normal. Normal gait. Psych: Awake, alert, with orientation to person, place and time. Behavior, mood, and affect are within normal limits. 15:36 Neuro: Patient is very somnolent. He wakes with vigorous stimulation. Otherwise falls back to sleep. Vital Signs: 10:47 BP 136 / 80; Pulse 89; Resp 22; Temp 97.7; Pulse Ox 90% on R/A; es2 11:59 BP 134 / 78; Pulse 90; Resp 24; Pulse Ox 95% on NC; es2 12:21 BP 128 / 78; Pulse 89; Resp 22; Pulse Ox 95% ; es2 MDM: 14:30 Patient medically screened. kdr 15:36 Data reviewed: vital signs, nurses notes, lab test result(s), radiologic studies. kdr Counseling: I had a detailed discussion with the patient and/or guardian regarding: the historical points, exam findings, and any diagnostic results supporting the discharge/admit diagnosis, lab results, radiology results, the need for outpatient follow up, The patient refused admission. I reviewed all of his laboratory work including his elevated troponin and BNP. Patient stated that he had follow-up already arranged for this week and wanted to keep those appointments and not be admitted. I offered to transfer the patient or to make other arrangements however the patient continued to refuse admission.. 08/25 11:00 Order name: Basic Metabolic Panel; Complete Time: 14:15 [facility] 08/25 11:00 Order name: CBC with Diff; Complete Time: 14:15 [facility] 08/25 11:00 Order name: LFT's; Complete Time: 14:15 [facility] 08/25 11:00 Order name: Magnesium; Complete Time: 14:15 [facility] 08/25 11:00 Order name: NT PRO-BNP; Complete Time: 14:15 [facility] 08/25 11:00 Order name: PT-INR; Complete Time: 14:15 [facility] 08/25 11:00 Order name: Troponin (emerg Dept Use Only); Complete Time: 14:15 [facility] 08/25 11:00 Order name: XRAY Chest (1 view); Complete Time: 14:15 [facility] 08/25 11:00 Order name: EKG; Complete Time: 11:01 [facility] 08/25 11:00 Order name: Cardiac monitoring; Complete Time: :58 [facility] 08/25 11:00 Order name: EKG - Nurse/Tech; Complete Time: 11:52 [facility] 08/25 11:49 Order name: ABG; Complete Time: 14: [facility] 08/25 12:53 Order name: CBC Smear Scan; Complete Time: 14:15 [facility] 08/25 11:00 Order name: IV Saline Lock; Complete Time: 11:58 [facility] 08/25 11:00 Order name: Labs collected and sent; Complete Time: 11: [facility] 08/25 11:00 Order name: O2 Per Protocol; Complete Time: [facility] 08/25 11:00 Order name: O2 Sat Monitoring; Complete Time: :58 kdr EC:39 Rate is 96 beats/min. Rhythm is regular, Sinus Rhythm with No ectopy, Left bundle kdr branch block. QRS [place] is Normal. AL interval is normal. QRS interval is normal. Clinical impression: NSR w/ Non-specific ST/T Changes. Administered Medications: No medications were administered Disposition Summary: 08/25/21 14:30 Left Against Medical Advice Location: Home kdr Problem: an acute exacerbation kdr Symptoms: have improved kdr Condition: Fair kdr Diagnosis - Sleep deprivation kdr - Weakness kdr - Congestive heart failure, elevated cardiac enzymes kdr Followup: kdr - With: Private Physician - When: 2 - 3 days - Reason: If symptoms return, Further diagnostic work-up, Recheck today's complaints, Continuance of care, Re-evaluation by your physician Discharge Instructions: - Discharge Summary Sheet kdr - Fatigue kdr - Weakness, [id number] kdr - Heart Failure, Diagnosis, [id number] kdr Signatures: Dispatcher [employer] EDAbdias Roman MD MD kdr Myranda Roman RN RN es2 Corrections: (The following items were deleted from the chart) 12:53 12:53 Manual Differential ordered. EDMS EDMS
--- NOTE | 2021-08-25 14:30 | ER ---
Nurse's Notes [facility] Name: Bob Santana Age: 56 yrs Sex: Male : 1965 Arrival Date: 08/25/2021 Time: 10:46 Bed 17 Private MD: Diagnosis: Sleep deprivation;Weakness;Congestive heart failure, elevated cardiac enzymes Presentation: 08/25 10:47 Chief complaint: EMS states: SOB x2 wks, was here last week for same thing. On 2L O2 es2 with EMS for comfort, was 94% on RA at home with EMS. Coronavirus screen: Vaccine status: Patient reports being unvaccinated. Client denies travel out of the [place] in the last 14 days. Ebola Screen: Patient negative for fever greater than or equal to 101.5 degrees Fahrenheit, and additional compatible Ebola Virus Disease symptoms Patient denies exposure to infectious person. Patient denies travel to an Ebola-affected area in the 21 days before illness onset. No symptoms or risks identified at this time. Initial Sepsis Screen: Does the patient meet any 2 criteria? No. Patient's initial sepsis screen is negative. Does the patient have a suspected source of infection? No. Patient's initial sepsis screen is negative. Risk Assessment: Do you want to hurt yourself or someone else? Patient reports no desire to harm self or others. Onset of symptoms was August 11, 2021. 10:47 Method Of Arrival: EMS es2 10:47 Acuity: KISHAN 2 es2 Triage Assessment: 10:54 General: Appears uncomfortable, unkempt, Behavior is cooperative, appropriate for age. es2 Pain: Denies pain. EENT: No signs and/or symptoms were reported regarding the EENT system. Neuro: Level of Consciousness is awake, alert, obeys commands, Oriented to person, place, time, situation, Appropriate for age Speech is normal. Cardiovascular: Capillary refill < 3 seconds Patient's skin is warm and dry. Respiratory: Reports shortness of breath Onset: The symptoms/episode began/occurred gradually, the patient has moderate shortness of breath. GI: No signs and/or symptoms were reported involving the gastrointestinal system. : No signs and/or symptoms were reported regarding the genitourinary system. Derm: red, edematous upper limbs. Musculoskeletal: Capillary refill < 3 seconds. Historical: - Allergies: 10:52 No Known Allergies; es2 - Home Meds: 10:52 buspirone 10 mg Oral tab 1 tab 3 times per day [Active]; carvedilol 3.125 mg Oral tab 1 es2 tab 2 times per day [Active]; furosemide 80 mg Oral tab 1 tab once daily [Active]; spironolactone 50 mg Oral tab 1 tab once daily [Active]; - PMHx: 10:52 "irregular heartbeat"; cardiomegaly; Cirrhosis; COPD; CHF; Hypertension; Hepatitis; es2 - PSHx: 10:52 R elbow SX; es2 - Immunization history:: Client reports having NOT received the Covid vaccine. - Social history:: Smoking status: Patient reports the use of cigarette tobacco products, 2 cigarettes a day, per patient. Screenin:57 Abuse screen: Denies threats or abuse. Denies injuries from another. Nutritional es2 screening: No deficits noted. Tuberculosis screening: No symptoms or risk factors identified. Fall Risk Mental Status- Oriented to own ability (0 pts). Assessment: 10:56 Reassessment: Patient and/or family updated on plan of care and expected duration. Pain es2 level reassessed. Patient is alert, oriented x 3, equal unlabored respirations, skin warm/dry/pink. Patient denies pain at this time. General: Appears unkempt, Behavior is cooperative, appropriate for age. Pain: Denies pain. Neuro: Level of Consciousness is awake, alert, obeys commands, Oriented to person, place, time, situation, Appropriate for age Speech is normal. Cardiovascular: Rhythm is sinus rhythm. Respiratory: Airway is patent Respiratory effort is even, labored, Breath sounds are clear. GI: No signs and/or symptoms were reported involving the gastrointestinal system. : No signs and/or symptoms were reported regarding the genitourinary system. EENT: No signs and/or symptoms were reported regarding the EENT system. Vital Signs: 10:47 BP 136 / 80; Pulse 89; Resp 22; Temp 97.7; Pulse Ox 90% on R/A; es2 11:59 BP 134 / 78; Pulse 90; Resp 24; Pulse Ox 95% on NC; es2 12:21 BP 128 / 78; Pulse 89; Resp 22; Pulse Ox 95% ; es2 ED Course: 10:46 Patient arrived in ED. es2 10:46 Myranda Roman, RN is Primary Nurse. es2 10:48 Abdias Duncan MD is Attending Physician. kdr 10:51 Triage completed. es2 10:57 Patient has correct armband on for positive identification. Call light in reach. Side es2 rails up X2. 10:57 Arm band placed on. es2 10:57 No provider procedures requiring assistance completed. es2 11:28 XRAY Chest (1 view) In Process Unspecified. EDMS 11:58 Inserted saline lock: 18 gauge in left EJ, using aseptic technique. Blood collected. es2 14:51 IV discontinued, intact, bleeding controlled, No redness/swelling at site. Pressure es2 dressing applied. Administered Medications: No medications were administered Outcome: 14:52 AMA AMA form signed es2 14:52 Condition: stable 14:52 Discharge instructions given to patient. 14:54 Patient left the ED. es2 Signatures: Dispatcher [employer] EDGA Abdias Duncan MD MD [facility] Myranda Roman, RN RN es2
[2021-08-25 15:02] VITALS: TEMP 97.7
[2021-08-25 15:04] VITALS: O2SAT 95
[2021-08-25 15:05] VITALS: BP 128/78
--- NOTE | 2021-08-26 15:59 | EKG ---
Test Date: 2021-08-25 Test Time: 11:20:48 Commercial Illustrator: SATNAM MEASUREMENT RESULTS: Intervals: Rate: 96 MT: 196 QRSD: 168 QT: 432 QTc: 545 [place]: P: 10 MT: 196 QRS: -80 T: 83 INTERPRETIVE STATEMENTS: Normal sinus rhythm Possible Left atrial enlargement Left axis deviation Right bundle branch block Left ventricular hypertrophy with repolarization abnormality Inferior infarct, age undetermined Anterior infarct, age undetermined Abnormal ECG Compared to ECG 08/08/2021 07:19:46 First degree AV block no longer present Myocardial infarct finding still present Electronically Signed On 08-26-21 15:56:35 CDT by Shane Quijano
== END 2021-08-25 14:54 | disposition left against medical advice (07) ==
LOC: ER 10:40
DX: R53.1 Weakness (principal); Z72.820 Sleep deprivation; R89.0 Abnormal level of enzymes in specimens from other organs, systems and tissues; I50.9 Heart failure, unspecified; I10 Essential (primary) hypertension; J44.9 Chronic obstructive pulmonary disease, unspecified; F17.210 Nicotine dependence, cigarettes, uncomplicated
CPT/HCPCS: 36415; 71045; 80048; 80076; 82805; 83735; 83880; 84484; 85025; 85610; 93005; 99284

== ENCOUNTER 2022-01-17 10:29 | Inpatient (IN) | payer OTHER ==
--- OUTSIDE RECORDS SUMMARY | 2022-01-17 10:36 | XMS REPORT | Continuity of Care Document ---
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 Take 1 Univers 80 mg 0-19 tablet by ity of tablet 00:00: mouth [place] 00 every Medical morning Branch and evening. metoprolol 2020-11 Yes [id number] 12.5mg Take 0.5 Univers succinate 0-19 tablets by ity of XL 25 mg 24 00:00: mouth [place] hr tablet 00 daily. Medical Branch lisinopriL 2020-11 Yes [id number] 5mg Take 1 Univers 5 mg tablet 0-19 tablet by ity of 00:00: mouth at [place] 00 bedtime. Medical Branch aspirin 81 2020-11 Yes [id number] 81mg Take 1 Univers mg chewable 0-19 tablet by ity of tablet 00:00: mouth [place] 00 daily. Medical Branch spironolact 2020-11 Yes [id number] 25mg Take 1 Univers one 25 mg 0-19 tablet by ity o f tablet 00:00: mouth [place] 00 daily. Medical Branch thiamine 2020-11 Yes [id number] 100mg Take 1 U nivers 100 mg 0-19 tablet by ity of tablet 00:00: mouth [place] 00 daily. Medical Branch furosemide 2020-11 Yes [id number] 80mg Take 1 Univers 80 mg 0-19 tablet by ity of tablet 00:00: mouth [place] 00 every Medical morning Branch and evening. metoprolol 2020-11 Yes [id number] 12.5mg Take 0.5 Univers succinate 0-19 tablets by ity of XL 25 mg 24 00:00: mouth [place] hr tablet 00 daily. Medical Branch lisinopriL 2020-11 Yes [id number] 5mg Take 1 Univers 5 mg tablet 0-19 tablet by ity of 00:00: mouth at [place] 00 bedtime. Medical Branch aspirin 81 2020-11 Yes [id number] 81mg Take 1 Univers mg chewable 0-19 tablet by ity of tablet 00:00: mouth [place] 00 daily. Medical Branch spironolact 2020-11 Yes [id number] 25mg Take 1 Univers one 25 mg 0-19 tablet by ity o f tablet 00:00: mouth [place] 00 daily. Medical Branch thiamine 2020-11 Yes [id number] 100mg Take 1 U nivers 100 mg 0-19 tablet by ity of tablet 00:00: mouth [place] 00 daily. Medical Branch furosemide 2020-11 Yes [id number] 80mg Take 1 Univers 80 mg 0-19 tablet by ity of tablet 00:00: mouth [place] 00 every Medical morning Branch and evening. metoprolol 2020-11 Yes [id number] 12.5mg Take 0.5 Univers succinate 0-19 tablets by ity of XL 25 mg 24 00:00: mouth [place] hr tablet 00 daily. Medical Branch lisinopriL 2020-11 Yes [id number] 5mg Take 1 Univers 5 mg tablet 0-19 tablet by ity of 00:00: mouth at [place] 00 bedtime. Medical Branch aspirin 81 2020-11 Yes [id number] 81mg Take 1 Univers mg chewable 0-19 tablet by ity of tablet 00:00: mouth [place] 00 daily. Medical Branch spironolact 2020-11 Yes [id number] 25mg Take 1 Univers one 25 mg 0-19 tablet by ity o f tablet 00:00: mouth [place] 00 daily. Medical Branch thiamine 2020-11 Yes [id number] 100mg Take 1 U nivers 100 mg 0-19 tablet by ity of tablet 00:00: mouth [place] 00 daily. Medical Branch metoprolol 2020-11 Yes [id number] 12.5mg Take 0.5 Univers succinate 0-19 tablets by ity of XL 25 mg 24 00:00: mouth [place] hr tablet 00 daily. Medical Branch lisinopriL 2020-11 Yes [id number] 5mg Take 1 Univers 5 mg tablet 0-19 tablet by ity of 00:00: mouth at [place] 00 bedtime. Medical Branch aspirin 81 2020-11 Yes [id number] 81mg Take 1 Univers mg chewable 0-19 tablet by ity of tablet 00:00: mouth [place] 00 daily. Medical Branch thiamine 2020-11 Yes [id number] 100mg Take 1 U nivers 100 mg 0-19 tablet by ity of tablet 00:00: mouth [place] 00 daily. Medical Branch metoprolol 2020-11 Yes [id number] 12.5mg Take 0.5 Univers succinate 0-19 tablets by ity of XL 25 mg 24 00:00: mouth [place] hr tablet 00 daily. Medical Branch lisinopriL 2020-11 Yes [id number] 5mg Take 1 Univers 5 mg tablet 0-19 tablet by ity of 00:00: mouth at [place] 00 bedtime. Medical Branch aspirin 81 2020-11 Yes [id number] 81mg Take 1 Univers mg chewable 0-19 tablet by ity of tablet 00:00: mouth [place] 00 daily. Medical Branch thiamine 2020-11 Yes [id number] 100mg Take 1 U nivers 100 mg 0-19 tablet by ity of tablet 00:00: mouth [place] 00 daily. Medical Branch furosemide 2020-2021- No [id number] 80mg Take 1 Univers 80 mg 0-19 02-15 tablet by ity of tablet 00:00: 00:00 mouth [place] 00 :00 every Medical morning Branch and evening. spironolact 2020-11- No [id number] 25mg Take 1 Univers one 25 mg 0-15 tablet by ity of tablet 00:00: 00:00 mouth [place] 00 :00 daily. Medical Branch nicotine Yes [id number] 1{patch Apply 1 Univers mg/24 hr 1-23 9103 } Patch to ity of patch 00:00: area(s) [place] 00 every 24 Medical (twenty-fo Branch ur) hours. nicotine Yes [id number] 1{patch Apply 1 Univers mg/24 hr 1-23 9103 } Patch to ity of patch 00:00: area(s) [place] 00 every 24 Medical (twenty-fo Branch ur) hours. nicotine Yes [id number] 1{patch Apply 1 Univers mg/24 hr 1-23 9103 } Patch to ity of patch 00:00: area(s) [place] 00 every 24 Medical (twenty-fo Branch ur) hours. nicotine Yes [id number] 1{patch Apply 1 Univers mg/24 hr 1-23 9103 } Patch to ity of patch 00:00: area(s) [place] 00 every 24 Medical (twenty-fo Branch ur) hours. nicotine Yes [id number] 1{patch Apply 1 Univers mg/24 hr 1-23 9103 } Patch to ity of patch 00:00: area(s) [place] 00 every 24 Medical (twenty-fo Branch ur) hours. ipratropium 2021- No [id number] 3mL Inhale 3 Univers -albuterol 12-18 9103 mL every 4 it y of 0.5 mg-3 00:00: 00:00 (four) [place] mg(2.5 mg 00 :00 hours as Medica l base)/3 mL needed for [facility] nebulizer Wheezing solution or Shortness of Breath. ipratropium 2021- No [id number] 3mL Inhale 3 Univers -albuterol 12-18 9103 mL every 4 it y of 0.5 mg-3 00:00: 00:00 (four) [place] mg(2.5 mg 00 :00 hours as Medica l base)/3 mL needed for Bra [facility] nebulizer Wheezing solution or Shortness of Breath. furosemide Yes 40mg Q.5D Take [address] (LASIX) 40 6-19 by mouth 2 [facility] - MG tablet 16:18: (two) Medical 19 times Center daily. carvedilol Yes 3.125mg Take 3.[address] [facility] (COREG) 6-19 [facility] - 3.125 MG 16:18: mouth 2 Medica l tablet 19 (two) Center times daily with breakfast and dinner. busPIRone Yes 10mg Q.[id number] Take [address] [facility] (BUSPAR) 10 6-19 [id number] by mouth 3 [facility] - MG tablet 16:18: 3D (three) Medic al 19 times Center daily. digoxin Yes 250ug QD Take 250 [facility] (LANOXIN[facility] 6-19 mcg [facility] - 0.25 MG 16:18: mouth Medical tablet 19 daily. Center Immunizations Ordered Filled Immunization Date Status Comments [facility] Immunization Name Name Pneumococcal 2017-10-19 Completed University o f Polysaccharide, 00:00:00 [place] Med ical PPSV23 (PNEUMOVAX) Branch Influenza Virus 2017-10-19 Completed Universit y of Vaccine Quad IM 3+ 00:00:00 [facility] Pneumococcal 2017-10-19 Completed University o f Polysaccharide, 00:00:00 [place] Med ical PPSV23 (PNEUMOVAX) Branch Influenza Virus 2017-10-19 Completed Universit y of Vaccine Quad IM 3+ 00:00:00 [facility] Pneumococcal 2017-10-19 Completed University o f Polysaccharide, 00:00:00 [place] Med ical PPSV23 (PNEUMOVAX) Branch Influenza Virus 2017-10-19 Completed Universit y of Vaccine Quad IM 3+ 00:00:00 [facility] Pneumococcal 2017-10-19 Completed University o f Polysaccharide, 00:00:00 [place] Med ical PPSV23 (PNEUMOVAX) Branch Influenza Virus 2017-10-19 Completed Universit y of Vaccine Quad IM 3+ 00:00:00 [facility] Pneumococcal 2017-10-19 Completed University o f Polysaccharide, 00:00:00 [place] Med ical PPSV23 (PNEUMOVAX) Branch Influenza Virus 2017-10-19 Completed Universit y of Vaccine Quad IM 3+ 00:00:00 [facility] Vital Signs Vital Name Observation Time Observation Value Comments Source Systolic blood 2022-01-11 17:34:00 98 mm[Hg] Univer sity of pressure [facility] Diastolic blood 2022-01-11 17:34:00 65 mm[Hg] Unive rsity of pressure [facility] Heart rate 2022-01-11 17:34:00 81 /min Universi ty of [facility] Body temperature 2022-01-11 17:34:00 36.17 [place] [facility] ersity of [facility] Respiratory rate 2022-01-11 17:34:00 20 /min Univ ersity of [facility] Oxygen saturation in 2022-01-11 17:34:00 98 /min University of Arterial blood by [place] [employer] [facility] Pulse oximetry Branch Body weight 2022-01-11 12:04:00 92.443 kg Universi ty of [facility] BMI 2022-01-11 12:04:00 28.42 kg/m2 Universi ty of [facility] Body height 2022-01-10 20:05:00 180.3 cm Universi ty of [facility] Systolic blood 2021-12-31 17:08:00 125 mm[Hg] Univer sity of pressure [facility] Diastolic blood 2021-12-31 17:08:00 79 mm[Hg] Unive rsity of [facility] Heart rate 2021-12-31 17:08:00 111 /min Universi ty of [facility] Body temperature 2021-12-31 17:08:00 35.94 [place] [facility] ersity of [facility] Body height 2021-12-31 17:08:00 180.3 cm Universi ty of [place] [facility] [place] Body weight 2021-12-31 17:08:00 89.404 kg Universi ty of [place] [facility] BMI 2021-12-31 17:08:00 27.49 kg/m2 Universi ty of [facility] Oxygen saturation in 2021-12-31 17:08:00 98 /min University of Arterial blood by [place] [employer] [facility] Pulse oximetry Branch Procedures Procedure Date / Time Performing Clinician Source Performed POCT GLUCOSE (AUTOMATED) 2022-01-11 17:35:00 [facility] ([facility]) 2022-01-11 13:40:00 [facility]to [facility] N-TERMINAL PRO-BNP 2022-01-11 11:55:00 Cristopher Diaz [facility] CBC WITH DIFF 2022-01-11 11:54:00 Ekaterina Goodwin [facility] POCT GLUCOSE (AUTOMATED) 2022-01-11 03:06:00 Rigoberto [facility] POCT GLUCOSE (AUTOMATED) 2022-01-10 22:41:00 Rigoberto [facility] POCT GLUCOSE (AUTOMATED) 2022-01-10 17:22:00 Rigoberto [facility] BASIC METABOLIC PANEL 2022-01-10 17:19:00 Ekaterina Goodwin [facility] (NA, K, CL, CO2, GLUCOSE, Medica l Branch BUN, CREATININE, CA) N-TERMINAL PRO-BNP 2022-01-10 17:19:00 Ekaterina Goodwin [facility] US ABDOMEN LIMITED 2022-01-10 17:02:20 Ekaterina Goodwin [facility] TRANSTHORACIC ECHO (TTE) 2022-01-10 15:49:00 Rodo Prieto [facility] W/ DOPPLER AND Medical B ranch COLOR POCT GLUCOSE (AUTOMATED) 2022-01-10 13:17:00 [facility]to [facility] MAGNESIUM 2022-01-10 05:43:00 Rigoberto [facility] BASIC METABOLIC PANEL 2022-01-10 05:43:00 Rigoberto [facility] (NA, K, CL, CO2, GLUCOSE, Medica l Branch BUN, CREATININE, CA) POCT GLUCOSE (AUTOMATED) 2022-01-09 22:46:00 Rigoberto [facility] POCT GLUCOSE (AUTOMATED) 2022-01-09 17:44:00 Rigoberto [facility] POCT GLUCOSE (AUTOMATED) 2022-01-09 13:56:00 Rigoberto [facility] BASIC METABOLIC PANEL 2022-01-09 09:52:00 Ekaterina Goodwin [facility] (NA, K, CL, CO2, GLUCOSE, Medica l Branch BUN, CREATININE, CA) CBC WITH DIFF 2022-01-09 09:52:00 Ekaterina Goodwin [facility] N-TERMINAL PRO-BNP 2022-01-09 03:23:00 Ekaterina Goodwin [facility] POCT GLUCOSE (AUTOMATED) 2022-01-09 01:43:00 Edionxochitl Silvina [employer] [facility] POCT GLUCOSE (AUTOMATED) 2022-01-08 22:30:00 Edionwe [facility] AMMONIA, PLASMA 2022-01-08 18:48:00 Ekaterina Goodwin [facility] POCT GLUCOSE (AUTOMATED) 2022-01-08 17:35:00 Edionxochitl [facility] POCT GLUCOSE (AUTOMATED) 2022-01-08 13:36:00 Edfaye [facility] COMP. METABOLIC PANEL 2022-01-08 11:06:00 Checo You [facility] ([id number]) [facility] CBC WITH DIFF 2022-01-08 11:06:00 Checo You [facility] N-TERMINAL PRO-BNP 2022-01-08 11:06:00 Checo You [facility] POCT GLUCOSE (AUTOMATED) 2022-01-08 01:19:00 Silvina Mead [employer] [facility] POCT GLUCOSE (AUTOMATED) 2022-01-07 22:18:00 Edfaye Adeptencekindra [employer] [facility] POCT GLUCOSE (AUTOMATED) 2022-01-07 21:16:00 Rigoberto [facility] URINE DRUG (IMMUNOASSAY) 2022-01-07 18:24:00 Checo You [facility] SCREEN URINALYSIS 2022-01-07 18:24:00 Checo You [facility] URINE CULTURE 2022-01-07 18:24:00 Checo You [facility] POCT GLUCOSE (AUTOMATED) 2022-01-07 17:34:00 Rigoberto [facility] TROPONIN I 2022-01-07 15:57:00 [facility] ([facility]OMATED) 2022-01-07 13:56:00 Rigoberto [facility] TROPONIN I 2022-01-07 09:48:00 [facility] BASIC METABOLIC PANEL 2022-01-07 09:48:00 [facility] (NA, K, CL, CO2, GLUCOSE, Medica l Branch BUN, CREATININE, CA) CBC WITH DIFF 2022-01-07 09:48:00 [facility] 2022-01-07 03:03:04 Merritt Mcintosh [facility] CBC WITH DIFF 2022-01-07 02:54:00 Merritt Mcintosh [facility] GLYCOSYLATED HEMOGLOBIN 2022-01-07 02:54:00 [facility] PROTHROMBIN TIME / INR 2022-01-07 02:53:00 Merritt Mcintosh [facility] ACTIVATED PARTIAL 2022-01-07 02:53:00 [facility] XR CHEST 1 VW 2022-01-07 01:49:22 Merritt Mcintosh [facility] COVID-19 (ID NOW RAPID 2022-01-07 01:40:00 Merritt Mcintosh [facility] TESTING) [facility] Branch LAB ONLY COVID 2022-01-07 01:40:00 Merritt Mcintosh [facility] INTERPRETATION [facility] TROPONIN I 2022-01-07 01:34:00 Merritt Mcintosh [facility] COMP. METABOLIC PANEL 2022-01-07 01:34:00 Merritt Mcintosh [facility] ([id number]) [facility] Branch N-TERMINAL PRO-BNP 2022-01-07 01:34:00 Merritt Mcintosh [facility] AC PANEL 20 + LACTIC ACID 2022-01-07 01:26:00 [facility] HB ECG ROUTINE & RHYTHM 2022-01-07 01:09:07 Merritt Mcintosh [facility] NOTICE OF PRIVACY 2022-01-07 01:06:00 Doctor Unassigned, [facility] PRACTICES [place] [facility] CONSENT/REFUSAL FOR 2022-01-07 01:05:25 Doctor [facility]jose, [facility] DIAGNOSIS AND TREATMENT [place] [facility] Plan of Care Planned Activity Planned Date Details Comments Source Future Scheduled 2020-07-28 INFLUENZA VACCINE (#1) [facility] 00:00:00 [code = INFLUENZA Medical Ce nter VACCINE (#1)] Future Scheduled 2019-05-[address] [facility] - Test 00:00:00 measurement Medical Center (procedure) [code = 81377214] Future Scheduled 2013-11-[address] [facility] - Test 00:00:00 WELLNESS (YEAR 2 or Medical Center FIRST YEAR if no IPPE) [code = MEDICARE ANNUAL WELLNESS (YEAR 2 or FIRST YEAR if no IPPE)] Future Scheduled [address] [facility] - Test 00:00:00 (procedure) [code = Medical Center 62956945] Future Scheduled 1973 DIABETIC EYE EXAM [facility] - Test 00:00:00 [code = DIABETIC EYE Medical Center EXAM] Future Scheduled [address] [facility] - Test 00:00:00 examination Medical Center (regime/therapy) [code = 728020504] Future Scheduled 1973 Urine screening for [facility] - Test 00:00:00 protein (procedure) Medical Center [code = 322623844] Future Scheduled [address] [facility] - Test 00:00:00 0-64 YRS (1 of 1 - Medical C enter PPSV23) [code = PNEUMOCOCCAL VACCINE 0-64 YRS (1 of 1 - PPSV23)] Future Scheduled [address] [facility] - Test 00:00:00 malignant neoplasm of Medica l [place] colon (procedure) [code = 463046104] Encounters Start End Encounter Admission Attending Care Care Encounter Source Date/Time Date/Time Type Type Clinicians Facility Department ID 2022-01-28 2022-01-28 Outpatient R ITJACKYAGA- [facility] [id number] Univers 13:30:00 13:30:00 PHAN [id number] ity of STEFAN [facility] 2022-01-12 2022-01-[address] [place] 1.2.840.114 [id number] Univers 00:00:00 00:00:00 of Care Vicky HINES 350.1.13.10 i ty [place] [id number] [facility] 403 Branch 2022-01-06 2022-01-11 Inpatient X ROMINAMADINA [facility] [id number] Univers 19:08:00 13:07:00 LILY ity of [facility] 2022-01-06 2022-01-11 Hospital Merritt Mcintosh [facility] 1.2.840.1 [id number] Univers 19:08:00 13:07:00 Encounter Silvina Mead 350.1.13.10 ity of Lily Pearson 4.2.7.2.686 [facility] [id number] [facility] 081 Branch 2021-12-31 2021-12-31 Office Lon Ballesteros [id number] Univers 11:00:00 11:53:10 Visit Y PEDIATRIC 350.1.13.10 ity [place] [id number] [facility] PRIMARY [address] [facility] CLINIC 2021-12-31 2021-12-31 Refill Lon Ballesteros 1.2.840.114 [id number] Univers 00:00:00 00:00:00 Y PEDIATRIC 350.1.13.10 [place] [id number] [address] 2020-09-10 2020-09-10 Letter CHRISSY Fisher 1.2.840.114 [id number] 00:00:00 00:00:00 (Out) Selina CERVANTES 350.1.13.10 [facility] 4.2.7.2.686 [id number] 2020-09-08 2020-09-08 Emergency Titi [facility] [id number] 17:45:00 20:45:00 Ekaterina Sage 350.1.13.10 [place] 4.2.7.2.686 [place] [id number] 2020-09-08 2020-09-08 Orders Doctor LOWE 1.2.840.114 [id number] 00:00:00 00:00:00 Only Unassigned, BILLY 350.1.13.10 [place] [facility] 4.2.7.2.686 [id number] 2020-01-15 2020-01-15 Orders Doctor LOWE 1.2.840.114 [id number] 00:00:00 00:00:00 Only Unassigned, BILLY 350.1.13.10 [place] [facility] 4.2.7.2.686 [id number] [id number] 2019-12-26 2019-12-26 Orders Doctor LOWE 1.2.840.114 [id number] 00:00:00 00:00:00 Only Unassigned, BILLY 350.1.13.10 [place] [facility] 4.2.7.2.686 [id number] [id number] 2019-12-19 2019-12-19 Transition Delia Hoffmannjudy 1.2.840.114 [id number] 00:00:00 00:00:00 of Care Kaia Hines 350.1.13.10 [place] 4.2.7.2.686 [id number] 2019-11-26 2019-12-18 [facility] Melly 1.2.840.114 [id number] 08:02:00 17:48:00 Encounter Roc Razo [place] 350.1 .13.10 [facility] 4.2.7.2.686 Dianna Barrett [id number] Results Test Description Test Time Test Comments Results Result Comments Source POCT GLUCOSE (AUTOMATED) 2022-01-11 17:43:04 Test Item Value Reference Range Interpretation Comme nts POCT GLU (test code = 7699554634) 263 mg/dL 70-110 H Lab Interpretation (test code = 32631-6) Abnormal [facility] [id number] 15:24:23 Test Item Value Reference Range Interpretation Comments NT-proBNP (test code 14493 pg/mL See_Comment H [Autom ated = 7982734175) message] The system which generated this result transmitted reference range : <=125. The reference range was not used to interpret this result as normal/abnormal . MELYSSA (test code = MELYSSA) Biotin has been reported to cause a negative bias, interpret results relative to patient's use of biotin. Lab Interpretation Abnormal (test code = 39599-5) [facility] WITH [id number] 14:44:37 Test Item Value Reference Range Interpretation Comments WBC (test code = See_Comment [Automated 6690-2) message] The sy stem which generated this result transmitted reference range : 4.20 - 10.70 10*3/?L. The reference range was not used to interpret this result as normal/abnormal . RBC (test code = See_Comment [Automated 789-8) message] The sy stem which generated this result transmitted reference range : 4.26 - 5.52 10*6/?L. The reference range was not used to interpret this result as normal/abnormal . HGB (test code = 13.6 g/dL 12.2-16.4 718-7) HCT (test code = 40.6 % 38.4-49.3 4544-3) MCV (test code = 90.2 fL 81.7-95.6 787-2) MCH (test code = 30.2 pg 26.1-32.7 785-6) MCHC (test code = 33.5 g/dL 31.2-35.0 786-4) RDW-SD (test code = 58.1 fL 38.5-51.6 H 91472-3) RDW-CV (test code = 17.8 % 12.1-15.4 H 788-0) PLT (test code = See_Comment L [Automated 777-3) message] The sy stem which generated this result transmitted reference range : 150 - 328 10*3/ ?L. The reference r chava was not used to interpret this result as normal/abnormal . MPV (test code = Not Measure d 16383-1) IPF % (test code = 15.5 % 1.2-10.7 H Platelet count 1311053473) measured by fluorescence method. NRBC/100 WBC (test See_Comment [Automat ed code = 5734737202) message] The system which generated this result transmitted reference range : 0.0 - 10.0 /100 WBCs. The refer ence range was not u sed to interpret th is result as normal/abnormal . NRBC x10^3 (test code <0.01 See_Comment [Auto mated = 5965539475) message] The s ystem which generated this result transmitted reference range : 10*3/?L. The reference range was not used to interpret this result as normal/abnormal . GRAN MAT (NEUT) % 54.5 % (test code = 770-8) IMM GRAN % (test code 0.70 % = 3283843327) LYMPH % (test code = 30.0 % 736-9) MONO % (test code = 11.5 % 5905-5) EOS % (test code = 2.5 % 713-8) BASO % (test code = 0.8 % 706-2) GRAN MAT x10^3(ANC) 4.12 10*3/uL 1.99-6.95 (test code = 8916496676) IMM GRAN x10^3 (test 0.05 10*3/uL 0.00-0.06 code = 2706351682) LYMPH x10^3 (test code 2.27 10*3/uL 1.09-3.23 = 731-0) MONO x10^3 (test code 0.87 10*3/uL 0.36-1.02 = 742-7) EOS x10^3 (test code = 0.19 10*3/uL 0.06-0.53 711-2) BASO x10^3 (test code 0.06 10*3/uL 0.01-0.09 = 704-7) POLYCHROMASIA (test 2+ See_Comment [Automa supriya code = 07870-2) message] The system which generated this result transmitted reference range : 2+. The referen ce range was not u sed to interpret th is result as normal/abnormal . PLT ESTIMATE (test Decreased Normal A code = 9317-9) Lab Interpretation Abnormal (test code = 48847-3) [facility] GLUCOSE (AUTOMATED)2022-01-11 14:16:27 Test Item Value Reference Range Interpretation Comments POCT GLU (test code = 2477283521) 160 mg/dL 70-110 H Lab Interpretation (test code = Abnormal 00665-2) [facility] GLUCOSE (AUTOMATED)2022-01-11 03:13:02 Test Item Value Reference Range Interpretation Comments POCT GLU (test code = 5591810050) 154 mg/dL 70-110 H Lab Interpretation (test code = Abnormal 55502-3) [facility] [id number] 00:31:35 Test Item Value Reference Range Interpretation Comments NT-proBNP (test code 03962 pg/mL See_Comment H [Autom ated = 4327650737) message] The system which generated this result transmitted reference range : <=125. The reference range was not used to interpret this result as normal/abnormal . MELYSSA (test code = MELYSSA) Biotin has been reported to cause a negative bias, interpret results relative to patient's use of biotin. Lab Interpretation Abnormal (test code = 08169-1) [facility]2022-01-10 23:50:25 Test Item Value Reference Range Interpretation Comments IVS (test code = 1.21 cm 7270259638) Interventricular Septum 1.21 cm Diastolic Thickness by 2D (test code = 7032200) LVIDD (test code = 7.30 cm 3422429930) LVPWD (test code = 1.21 cm 0102790905) PW (test code = 1.21 cm 0.6-1.4 8362159660) EF(Teich) (test code = 29.80 % 9186123792) LVIDS (test code = 6.20 cm 2503291878) FS (test code = 15 % 7316816512) EF - 2D (test code = 29.80 % 14887755) LA size (test code = 5.4 cm 0384061269) LVOT diameter (test code 2.12 cm = 5054608855) Ao root annulus (test 3.6 cm code = 9663901618) Ao root diam (test code = 3.60 cm 8560804324) Aortic root (test code = 3.6 cm 4064397473) TR Peak Debbie (test code = 315.8 cm/s 0596260469) Triscuspid Valve mmHg Regurgitation Peak Gradient (test code = 2937172569) LAV(MOD-sp4) (test code = 150.00 mL 5607456215) MV stenosis pressure 1/2 45.1 ms time (test code = 1991429893) MV Peak E Debbie (test code 95.5 cm/s = 9419769698) E wave decelartion time 0.16 s (test code = 0685510384) MR max PG (test code = 69.60 mm[Hg] 4254009781) MR max debbie (test code = 417.00 cm/s 3345365651) Mr max debbie (test code = 417.0 m/s 3612694938) MV Prop V (test code = 31.50 cm/s 1170569800) MV E/e' septal (test code 18.8 cm/s = 1284344814) Radiology Study observation (narrative) (test code = 59529-1) MELYSSA (test code = MELYSSA) ?RVSP = 43 mmHg + RA pressure. ?Left ventricle is severely dilated. Septal flattening in systole consistent with right ventricular pressure overload. Severely reduced systolic function with a visually estimated EF of 20 - 25%. Diastolic dysfunction. VitalsHeight Weight BSA (Calculated - sq m) BP Pulse 5' 11" (1.803 m) 201 lb (91.2 kg) 2.13 sq meters 122/95 88 [facility]10 23:00:40 Test Item Value Reference Range Interpretation Comments POCT GLU (test code = 5433392523) 150 mg/dL 70-110 H Lab Interpretation (test code = Abnormal 58559-9) [facility] METABOLIC PANEL (NA, K, CL, CO2, GLUCOSE, BUN, CREATININE, CA)2022-01-10 17:47:54 Test Item Value Reference Range Interpretation Comments NA (test code = 132 mmol/L 135-145 L 9192217671) K (test code = 3.9 mmol/L 3.5-5.0 9899080475) CL (test code = 97 mmol/L 98-108 L 9808560064) CO2 TOTAL (test code = 29 mmol/L 23-31 9747955669) AGAP (test code = 2-16 3063822834) BUN (test code = 50 mg/dL 7-23 H 5683423706) GLUCOSE (test code = 94 mg/dL 70-110 3866494898) CREATININE (test code = 1.53 mg/dL 0.60-1.25 H 3911284102) CALCIUM (test code = 8.3 mg/dL 8.6-10.6 L 6685309339) eGFR (test code = mL/min/1.73m2 6887182032) MELYSSA (test code = MELYSSA) Association of Glomerular Filtration Rate (GFR) and Staging of Kidney Disease* + --+ --+ ------+| GFR (mL/min/1.73 m2) ?| With Kidney Damage ?| ?Without Kidney Damage+ --------+ --------+ +| ?>90 ?| ?Stage one ?| ? Normal ?+ ---+ ---+ -------+| ?60-89 ?| ?Stage two ?| ? Decreased GFR ? + --+ --+ ------+| ?30-59 ?| ?Stage three ?| ? Stage three ? + --+ --+ ------+| ?15-29 ?| ?Stage four ? | ? Stage four ?+ ---+ ---+ -------+| ?<15 (or dialysis) ? ?| ?Stage five ? | ? Stage five ?+ ---+ ---+ -------+ *Each stage assumes the associated GFR level has been in effect for at least three months. ?Stages 1 to 5, with or without kidney disease, indicate chronic kidney disease. Notes: Determination of stages one and two (with eGFR >59mL/min/1.73 m2) requires estimation of kidney damage for at least three months as defined by structural or functional abnormalities of the kidney, manifested by either:Pathological abnormalities or Markers of kidney damage (including abnormalities in the composition of the blood or urine or abnormalities in imaging tests). Lab Interpretation Abnormal (test code = 44982-7) [facility] GLUCOSE (AUTOMATED)2022-01-10 17:26:34 Test Item Value Reference Range Interpretation Comments POCT GLU (test code = 9390310192) 101 mg/dL 70-110 Lab Interpretation (test code = Normal 29239-5) [facility] 13:33:11 Test Item Value Reference Range Interpretation Comments POCT GLU (test code = 4036268925) 173 mg/dL 70-110 H Lab Interpretation (test code = Abnormal 75566-6) [facility] 06:16:08 Test Item Value Reference Range Interpretation Comments MAGNESIUM (test code = 3644214862) 1.8 mg/dL 1.7-2.4 Lab Interpretation (test code = Normal 36615-4) [facility] METABOLIC PANEL (NA, K, CL, CO2, GLUCOSE, BUN, CREATININE, CA)2022-01-10 06:15:48 Test Item Value Reference Range Interpretation Comments NA (test code = 130 mmol/L 135-145 L 9978803480) K (test code = 4.0 mmol/L 3.5-5.0 4000620800) CL (test code = 97 mmol/L 98-108 L 2812826514) CO2 TOTAL (test code = 29 mmol/L 23-31 1066196538) AGAP (test code = 2-16 6734391290) BUN (test code = 47 mg/dL 7-23 H 9192555135) GLUCOSE (test code = 175 mg/dL 70-110 H 5827467499) CREATININE (test code = 1.35 mg/dL 0.60-1.25 H 1084498309) CALCIUM (test code = 8.0 mg/dL 8.6-10.6 L 1646458251) eGFR (test code = mL/min/1.73m2 7572882065) MELYSSA (test code = MELYSSA) Association of Glomerular Filtration Rate (GFR) and Staging of Kidney Disease* + --+ --+ ------+| GFR (mL/min/1.73 m2) ?| With Kidney Damage ?| ?Without Kidney Damage+ --------+ --------+ +| ?>90 ?| ?Stage one ?| ? Normal ?+ ---+ ---+ -------+| ?60-89 ?| ?Stage two ?| ? Decreased GFR ? + --+ --+ ------+| ?30-59 ?| ?Stage three ?| ? Stage three ? + --+ --+ ------+| ?15-29 ?| ?Stage four ? | ? Stage four ?+ ---+ ---+ -------+| ?<15 (or dialysis) ? ?| ?Stage five ? | ? Stage five ?+ ---+ ---+ -------+ *Each stage assumes the associated GFR level has been in effect for at least three months. ?Stages 1 to 5, with or without kidney disease, indicate chronic kidney disease. Notes: Determination of stages one and two (with eGFR >59mL/min/1.73 m2) requires estimation of kidney damage for at least three months as defined by structural or functional abnormalities of the kidney, manifested by either:Pathological abnormalities or Markers of kidney damage (including abnormalities in the composition of the blood or urine or abnormalities in imaging tests). Lab Interpretation Abnormal (test code = 05569-4) [facility] GLUCOSE (AUTOMATED)2022-01-09 22:57:10 Test Item Value Reference Range Interpretation Comments POCT GLU (test code = 2788101055) 97 mg/dL 70-110 Lab Interpretation (test code = Normal 99354-0) [facility] GLUCOSE (AUTOMATED)2022-01-09 17:54:12 Test Item Value Reference Range Interpretation Comments POCT GLU (test code = 7641221923) 182 mg/dL 70-110 H Lab Interpretation (test code = Abnormal 88327-4) [facility] GLUCOSE (AUTOMATED)2022-01-09 14:18:37 Test Item Value Reference Range Interpretation Comments POCT GLU (test code = 6302454408) 106 mg/dL 70-110 Lab Interpretation (test code = Normal 83404-0) [facility] WITH [id number] 12:17:09 Test Item Value Reference Range Interpretation Comments WBC (test code = See_Comment [Automated 4390-2) message] The sy stem which generated this result transmitted reference range : 4.20 - 10.70 10*3/?L. The reference range was not used to interpret this result as normal/abnormal . RBC (test code = See_Comment [Automated 789-8) message] The sy stem which generated this result transmitted reference range : 4.26 - 5.52 10*6/?L. The reference range was not used to interpret this result as normal/abnormal . HGB (test code = 13.0 g/dL 12.2-16.4 718-7) HCT (test code = 39.7 % 38.4-49.3 4544-3) MCV (test code = 91.3 fL 81.7-95.6 787-2) MCH (test code = 29.9 pg 26.1-32.7 785-6) MCHC (test code = 32.7 g/dL 31.2-35.0 786-4) RDW-SD (test code = 59.2 fL 38.5-51.6 H 22533-2) RDW-CV (test code = 17.7 % 12.1-15.4 H 788-0) PLT (test code = See_Comment L [Automated 777-3) message] The sy stem which generated this result transmitted reference range : 150 - 328 10*3/ ?L. The reference r chava was not used to interpret this result as normal/abnormal . MPV (test code = 13.7 fL 9.8-13.0 H 51155-9) NRBC/100 WBC (test See_Comment [Automat ed code = 5371089610) message] The system which generated this result transmitted reference range : 0.0 - 10.0 /100 WBCs. The refer ence range was not u sed to interpret th is result as normal/abnormal . NRBC x10^3 (test code <0.01 See_Comment [Auto mated = 9118627249) message] The s ystem which generated this result transmitted reference range : 10*3/?L. The reference range was not used to interpret this result as normal/abnormal . GRAN MAT (NEUT) % 54.8 % (test code = 770-8) IMM GRAN % (test code 0.40 % = 5286745394) LYMPH % (test code = 30.1 % 736-9) MONO % (test code = 12.0 % 5905-5) EOS % (test code = 2.0 % 713-8) BASO % (test code = 0.7 % 706-2) GRAN MAT x10^3(ANC) 3.02 10*3/uL 1.99-6.95 (test code = 9354564211) IMM GRAN x10^3 (test <0.03 0.00-0.06 code = 2435404650) LYMPH x10^3 (test code 1.66 10*3/uL 1.09-3.23 = 731-0) MONO x10^3 (test code 0.66 10*3/uL 0.36-1.02 = 742-7) EOS x10^3 (test code = 0.11 10*3/uL 0.06-0.53 711-2) BASO x10^3 (test code 0.04 10*3/uL 0.01-0.09 = 704-7) PLT ESTIMATE (test Decreased Normal A code = 9317-9) Lab Interpretation Abnormal (test code = 92275-8) [facility] METABOLIC PANEL (NA, K, CL, CO2, GLUCOSE, BUN, CREATININE, CA)2022-01-09 10:24:37 Test Item Value Reference Range Interpretation Comments NA (test code = 131 mmol/L 135-145 L 0167268395) K (test code = 3.4 mmol/L 3.5-5.0 L 5374850203) CL (test code = 98 mmol/L 98-108 3626882527) CO2 TOTAL (test code = 32 mmol/L 23-31 H 9335747250) AGAP (test code = 2-16 L 9862878176) BUN (test code = 42 mg/dL 7-23 H 3383746179) GLUCOSE (test code = 209 mg/dL 70-110 H 0352648568) CREATININE (test code = 1.20 mg/dL 0.60-1.25 5175827206) CALCIUM (test code = 7.8 mg/dL 8.6-10.6 L 0304682443) eGFR (test code = mL/min/1.73m2 0131850357) MELYSSA (test code = MELYSSA) Association of Glomerular Filtration Rate (GFR) and Staging of Kidney Disease* + --+ --+ ------+| GFR (mL/min/1.73 m2) ?| With Kidney Damage ?| ?Without Kidney Damage+ --------+ --------+ +| ?>90 ?| ?Stage one ?| ? Normal ?+ ---+ ---+ -------+| ?60-89 ?| ?Stage two ?| ? Decreased GFR ? + --+ --+ ------+| ?30-59 ?| ?Stage three ?| ? Stage three ? + --+ --+ ------+| ?15-29 ?| ?Stage four ? | ? Stage four ?+ ---+ ---+ -------+| ?<15 (or dialysis) ? ?| ?Stage five ? | ? Stage five ?+ ---+ ---+ -------+ *Each stage assumes the associated GFR level has been in effect for at least three months. ?Stages 1 to 5, with or without kidney disease, indicate chronic kidney disease. Notes: Determination of stages one and two (with eGFR >59mL/min/1.73 m2) requires estimation of kidney damage for at least three months as defined by structural or functional abnormalities of the kidney, manifested by either:Pathological abnormalities or Markers of kidney damage (including abnormalities in the composition of the blood or urine or abnormalities in imaging tests). Lab Interpretation Abnormal (test code = 95914-5) [facility] [id number] 04:02:14 Test Item Value Reference Range Interpretation Comments NT-proBNP (test code 64816 pg/mL See_Comment H [Autom ated = 2021736985) message] The system which generated this result transmitted reference range : <=125. The reference range was not used to interpret this result as normal/abnormal . MELYSSA (test code = MELYSSA) Biotin has been reported to cause a negative bias, interpret results relative to patient's use of biotin. Lab Interpretation Abnormal (test code = 48588-6) [facility] GLUCOSE (AUTOMATED)2022-01-09 02:13:35 Test Item Value Reference Range Interpretation Comments POCT GLU (test code = 2728475095) 183 mg/dL 70-110 H Lab Interpretation (test code = Abnormal 42742-7) [facility] GLUCOSE (AUTOMATED)2022-01-08 22:43:07 Test Item Value Reference Range Interpretation Comments POCT GLU (test code = 9797617762) 106 mg/dL 70-110 Lab Interpretation (test code = Normal 73539-0) [facility], [id number] 19:15:40 Test Item Value Reference Range Interpretation Comments AMMONIA (test code = 1640435846) <9 9-33 L Lab Interpretation (test code = Abnormal 46795-6) [facility] GLUCOSE (AUTOMATED)2022-01-08 17:43:53 Test Item Value Reference Range Interpretation Comments POCT GLU (test code = 0592086883) 146 mg/dL 70-110 H Lab Interpretation (test code = Abnormal 01194-0) [facility] GLUCOSE (AUTOMATED)2022-01-08 13:42:36 Test Item Value Reference Range Interpretation Comments POCT GLU (test code = 6637073652) 108 mg/dL 70-110 Lab Interpretation (test code = Normal 56281-9) [facility] [id number] 12:27:37 Test Item Value Reference Range Interpretation Comments NT-proBNP (test code 70619 pg/mL See_Comment H [Autom ated = 5670313487) message] The system which generated this result transmitted reference range : <=125. The reference range was not used to interpret this result as normal/abnormal . MELYSSA (test code = MELYSSA) Biotin has been reported to cause a negative bias, interpret results relative to patient's use of biotin. Lab Interpretation Abnormal (test code = 09168-8) [facility] METABOLIC PANEL (16414)2022-01-08 12:21:20 Test Item Value Reference Range Interpretation Comments NA (test code = 133 mmol/L 135-145 L 6936506151) K (test code = 3.6 mmol/L 3.5-5.0 2617693148) CL (test code = 97 mmol/L 98-108 L 6093253516) CO2 TOTAL (test code = 32 mmol/L 23-31 H 8465826524) AGAP (test code = 2-16 4753975006) BUN (test code = 39 mg/dL 7-23 H 4389516971) GLUCOSE (test code = 204 mg/dL 70-110 H 5558063392) CREATININE (test code = 1.10 mg/dL 0.60-1.25 3440990274) TOTAL BILI (test code = 2.4 mg/dL 0.1-1.1 H 3767978606) CALCIUM (test code = 7.7 mg/dL 8.6-10.6 L 6390548688) T PROTEIN (test code = 6.7 g/dL 6.3-8.2 3873911458) ALBUMIN (test code = 3.1 g/dL 3.5-5.0 L 6418567115) ALK PHOS (test code = 81 U/L 34-122 0703090387) ALTv (test code = 63 U/L 5-50 H 1742-6) AST(SGOT) (test code = 124 U/L 13-40 H 4844796242) eGFR (test code = mL/min/1.73m2 6501297768) MELYSSA (test code = MELYSSA) Association of Glomerular Filtration Rate (GFR) and Staging of Kidney Disease* + --+ --+ ------+| GFR (mL/min/1.73 m2) ?| With Kidney Damage ?| ?Without Kidney Damage+ --------+ --------+ +| ?>90 ?| ?Stage one ?| ? Normal ?+ ---+ ---+ -------+| ?60-89 ?| ?Stage two ?| ? Decreased GFR ? + --+ --+ ------+| ?30-59 ?| ?Stage three ?| ? Stage three ? + --+ --+ ------+| ?15-29 ?| ?Stage four ? | ? Stage four ?+ ---+ ---+ -------+| ?<15 (or dialysis) ? ?| ?Stage five ? | ? Stage five ?+ ---+ ---+ -------+ *Each stage assumes the associated GFR level has been in effect for at least three months. ?Stages 1 to 5, with or without kidney disease, indicate chronic kidney disease. Notes: Determination of stages one and two (with eGFR >59mL/min/1.73 m2) requires estimation of kidney damage for at least three months as defined by structural or functional abnormalities of the kidney, manifested by either:Pathological abnormalities or Markers of kidney damage (including abnormalities in the composition of the blood or urine or abnormalities in imaging tests). Lab Interpretation Abnormal (test code = 15032-0) [facility] WITH [id number] 12:03:04 Test Item Value Reference Range Interpretation Comments WBC (test code = See_Comment [Automated 6690-2) message] The sy stem which generated this result transmitted reference range : 4.20 - 10.70 10*3/?L. The reference range was not used to interpret this result as normal/abnormal . RBC (test code = See_Comment [Automated 789-8) message] The sy stem which generated this result transmitted reference range : 4.26 - 5.52 10*6/?L. The reference range was not used to interpret this result as normal/abnormal . HGB (test code = 13.0 g/dL 12.2-16.4 718-7) HCT (test code = 39.9 % 38.4-49.3 4544-3) MCV (test code = 91.7 fL 81.7-95.6 787-2) MCH (test code = 29.9 pg 26.1-32.7 785-6) MCHC (test code = 32.6 g/dL 31.2-35.0 786-4) RDW-SD (test code = 60.7 fL 38.5-51.6 H 16478-1) RDW-CV (test code = 17.9 % 12.1-15.4 H 788-0) PLT (test code = See_Comment L [Automated 777-3) message] The sy stem which generated this result transmitted reference range : 150 - 328 10*3/ ?L. The reference r chava was not used to interpret this result as normal/abnormal . MPV (test code = 13.7 fL 9.8-13.0 H 48231-0) IPF % (test code = 10.7 % 1.2-10.7 Platelet count 9191171403) measured by fluorescence method. NRBC/100 WBC (test See_Comment [Automat ed code = 5824530256) message] The system which generated this result transmitted reference range : 0.0 - 10.0 /100 WBCs. The refer ence range was not u sed to interpret th is result as normal/abnormal . NRBC x10^3 (test code <0.01 See_Comment [Auto mated = 4895128747) message] The s ystem which generated this result transmitted reference range : 10*3/?L. The reference range was not used to interpret this result as normal/abnormal . GRAN MAT (NEUT) % 54.8 % (test code = 770-8) IMM GRAN % (test code 0.20 % = 7855668444) LYMPH % (test code = 31.3 % 736-9) MONO % (test code = 10.7 % 5905-5) EOS % (test code = 2.4 % 713-8) BASO % (test code = 0.6 % 706-2) GRAN MAT x10^3(ANC) 2.98 10*3/uL 1.99-6.95 (test code = 4624609760) IMM GRAN x10^3 (test <0.03 0.00-0.06 code = 8561722861) LYMPH x10^3 (test code 1.70 10*3/uL 1.09-3.23 = 731-0) MONO x10^3 (test code 0.58 10*3/uL 0.36-1.02 = 742-7) EOS x10^3 (test code = 0.13 10*3/uL 0.06-0.53 711-2) BASO x10^3 (test code 0.03 10*3/uL 0.01-0.09 = 704-7) Lab Interpretation Abnormal (test code = 02522-7) [facility] GLUCOSE (AUTOMATED)2022-01-08 01:26:08 Test Item Value Reference Range Interpretation Comments POCT GLU (test code = 8624130835) 211 mg/dL 70-110 H Lab Interpretation (test code = Abnormal 77477-3) [facility] GLUCOSE (AUTOMATED)2022-01-08 01:26:03 Test Item Value Reference Range Interpretation Comments POCT GLU (test code = 8145274538) 177 mg/dL 70-110 H Lab Interpretation (test code = Abnormal 63682-1) [facility] GLUCOSE (AUTOMATED)2022-01-08 01:26:03 Test Item Value Reference Range Interpretation Comments POCT GLU (test code = 5662676516) 134 mg/dL 70-110 H Lab Interpretation (test code = Abnormal 55728-3) [facility] GLUCOSE (AUTOMATED)2022-01-07 17:47:11 Test Item Value Reference Range Interpretation Comments POCT GLU (test code = 4010754396) 169 mg/dL 70-110 H Lab Interpretation (test code = Abnormal 42094-9) [facility] [id number] 17:01:18 Test Item Value Reference Interpretation Comments Range TROPONIN I (test 0.076 ng/mL See_Comment H [Automated code = 8054433143) message] The system which generated this result transmitted reference range : <=0.034. The reference range was not used to interpret this result as normal/abnormal . MELYSSA (test code = Reference (Normal) MELYSSA) Range (defined by the 99th percentile reference limit): <= 0.034 ng/mL Note: Cardiac troponin begins to rise 3-4 hours after the onset of ischemia. Repeat in 4-6 hours if the sample was drawn within 3-4 hours of the onset of the symptom and found normal. Diagnosis of myocardial injury is made with acute changes in cTn concentrations with at least one serial sample above the 99th percentile upper reference limit (URL), taken together with the patient's clinical presentation. Biotin has been reported to cause a negative bias, interpret results relative to patient's use of biotin. Lab Interpretation Abnormal (test code = 83716-3) [facility] 16:17:56 Test Item Value Reference Range Interpretation Comments POCT GLU (test code = 3854651492) 164 mg/dL 70-110 H Lab Interpretation (test code = Abnormal 43155-3) [facility] with [id number] 12:38:07 Test Item Value Reference Range Interpretation Comments WBC (test code = See_Comment [Automated 2490-2) message] The sy stem which generated this result transmitted reference range : 4.20 - 10.70 10*3/?L. The reference range was not used to interpret this result as normal/abnormal . RBC (test code = See_Comment [Automated 729-8) message] The sy stem which generated this result transmitted reference range : 4.26 - 5.52 10*6/?L. The reference range was not used to interpret this result as normal/abnormal . HGB (test code = 12.6 g/dL 12.2-16.4 718-7) HCT (test code = 38.4 % 38.4-49.3 4544-3) MCV (test code = 90.1 fL 81.7-95.6 787-2) MCH (test code = 29.6 pg 26.1-32.7 785-6) MCHC (test code = 32.8 g/dL 31.2-35.0 786-4) RDW-SD (test code = 60.0 fL 38.5-51.6 H 06697-9) RDW-CV (test code = 18.2 % 12.1-15.4 H 788-0) PLT (test code = See_Comment L [Automated 777-3) message] The sy stem which generated this result transmitted reference range : 150 - 328 10*3/ ?L. The reference r chava was not used to interpret this result as normal/abnormal . MPV (test code = 12.9 fL 9.8-13.0 70758-5) IPF % (test code = 8.4 % 1.2-10.7 Platelet count 1434600442) measured by fluorescence method. NRBC/100 WBC (test See_Comment [Automat ed code = 2521172902) message] The system which generated this result transmitted reference range : 0.0 - 10.0 /100 WBCs. The refer ence range was not u sed to interpret th is result as normal/abnormal . NRBC x10^3 (test code <0.01 See_Comment [Auto mated = 3920897325) message] The s ystem which generated this result transmitted reference range : 10*3/?L. The reference range was not used to interpret this result as normal/abnormal . GRAN MAT (NEUT) % 64.0 % (test code = 770-8) IMM GRAN % (test code 0.20 % = 6622600518) LYMPH % (test code = 26.1 % 736-9) MONO % (test code = 7.8 % 5905-5) EOS % (test code = 1.4 % 713-8) BASO % (test code = 0.5 % 706-2) GRAN MAT x10^3(ANC) 2.72 10*3/uL 1.99-6.95 (test code = 3104603184) IMM GRAN x10^3 (test <0.03 0.00-0.06 code = 0169114607) LYMPH x10^3 (test code 1.11 10*3/uL 1.09-3.23 = 731-0) MONO x10^3 (test code 0.33 10*3/uL 0.36-1.02 L = 742-7) EOS x10^3 (test code = 0.06 10*3/uL 0.06-0.53 711-2) BASO x10^3 (test code <0.03 0.01-0.09 = 704-7) Lab Interpretation Abnormal (test code = 30058-2) [facility] [id number] 12:14:02 Test Item Value Reference Interpretation Comments Range TROPONIN I (test 0.075 ng/mL See_Comment H [Automated code = 2442562278) message] The system which generated this result transmitted reference range : <=0.034. The reference range was not used to interpret this result as normal/abnormal . MELYSSA (test code = Reference (Normal) MELYSSA) Range (defined by the 99th percentile reference limit): <= 0.034 ng/mL Note: Cardiac troponin begins to rise 3-4 hours after the onset of ischemia. Repeat in 4-6 hours if the sample was drawn within 3-4 hours of the onset of the symptom and found normal. Diagnosis of myocardial injury is made with acute changes in cTn concentrations with at least one serial sample above the 99th percentile upper reference limit (URL), taken together with the patient's clinical presentation. Biotin has been reported to cause a negative bias, interpret results relative to patient's use of biotin. Lab Interpretation Abnormal (test code = 13017-1) [facility] (NA, K, CL, CO2, GLUCOSE, BUN, CREATININE, CA)2022-01-07 12:08:44 Test Item Value Reference Range Interpretation Comments NA (test code = 134 mmol/L 135-145 L 4209692857) K (test code = 3.5 mmol/L 3.5-5.0 1177813104) CL (test code = 99 mmol/L 98-108 1484111922) CO2 TOTAL (test code = 28 mmol/L 23-31 0931191013) AGAP (test code = 2-16 4146007896) BUN (test code = 28 mg/dL 7-23 H 8919764415) GLUCOSE (test code = 192 mg/dL 70-110 H 6480209173) CREATININE (test code = 1.34 mg/dL 0.60-1.25 H 2402474234) CALCIUM (test code = 7.5 mg/dL 8.6-10.6 L 8281067412) eGFR (test code = mL/min/1.73m2 1652831927) MELYSSA (test code = MELYSSA) Association of Glomerular Filtration Rate (GFR) and Staging of Kidney Disease* + --+ --+ ------+| GFR (mL/min/1.73 m2) ?| With Kidney Damage ?| ?Without Kidney Damage+ --------+ --------+ +| ?>90 ?| ?Stage one ?| ? Normal ?+ ---+ ---+ -------+| ?60-89 ?| ?Stage two ?| ? Decreased GFR ? + --+ --+ ------+| ?30-59 ?| ?Stage three ?| ? Stage three ? + --+ --+ ------+| ?15-29 ?| ?Stage four ? | ? Stage four ?+ ---+ ---+ -------+| ?<15 (or dialysis) ? ?| ?Stage five ? | ? Stage five ?+ ---+ ---+ -------+ *Each stage assumes the associated GFR level has been in effect for at least three months. ?Stages 1 to 5, with or without kidney disease, indicate chronic kidney disease. Notes: Determination of stages one and two (with eGFR >59mL/min/1.73 m2) requires estimation of kidney damage for at least three months as defined by structural or functional abnormalities of the kidney, manifested by either:Pathological abnormalities or Markers of kidney damage (including abnormalities in the composition of the blood or urine or abnormalities in imaging tests). Lab Interpretation Abnormal (test code = 92798-1) [facility] (A1C)2022-01-07 09:09:46 Test Item Value Reference Range Interpretation Comments HGB A1C (test code = 7.2 % 4.0-5.7 H 4548-4) MELYSSA (test code = MELYSSA) Reference RangesNormal: <5.7%Prediabetes: 5.7 - 6.4%Diabetes: > 6.5% Lab Interpretation (test Abnormal code = 31791-3) [facility] WITH [id number] 03:40:29 Test Item Value Reference Range Interpretation Comments WBC (test code = See_Comment [Automated 6690-2) message] The sy stem which generated this result transmitted reference range : 4.20 - 10.70 10*3/?L. The reference range was not used to interpret this result as normal/abnormal . RBC (test code = See_Comment [Automated 789-8) message] The sy stem which generated this result transmitted reference range : 4.26 - 5.52 10*6/?L. The reference range was not used to interpret this result as normal/abnormal . HGB (test code = 13.6 g/dL 12.2-16.4 718-7) HCT (test code = 41.8 % 38.4-49.3 4544-3) MCV (test code = 92.1 fL 81.7-95.6 787-2) MCH (test code = 30.0 pg 26.1-32.7 785-6) MCHC (test code = 32.5 g/dL 31.2-35.0 786-4) RDW-SD (test code = 61.6 fL 38.5-51.6 H 77899-4) RDW-CV (test code = 18.5 % 12.1-15.4 H 788-0) PLT (test code = See_Comment L [Automated 777-3) message] The sy stem which generated this result transmitted reference range : 150 - 328 10*3/ ?L. The reference r chava was not used to interpret this result as normal/abnormal . MPV (test code = 13.6 fL 9.8-13.0 H 41158-1) NRBC/100 WBC (test See_Comment [Automat ed code = 8003161069) message] The system which generated this result transmitted reference range : 0.0 - 10.0 /100 WBCs. The refer ence range was not u sed to interpret th is result as normal/abnormal . NRBC x10^3 (test code <0.01 See_Comment [Auto mated = 6981699600) message] The s ystem which generated this result transmitted reference range : 10*3/?L. The reference range was not used to interpret this result as normal/abnormal . GRAN MAT (NEUT) % 65.9 % (test code = 770-8) IMM GRAN % (test code 0.60 % = 7029922093) LYMPH % (test code = 23.5 % 736-9) MONO % (test code = 7.6 % 5905-5) EOS % (test code = 2.0 % 713-8) BASO % (test code = 0.4 % 706-2) GRAN MAT x10^3(ANC) 3.28 10*3/uL 1.99-6.95 (test code = 1928153517) IMM GRAN x10^3 (test 0.03 10*3/uL 0.00-0.06 code = 2335100605) LYMPH x10^3 (test code 1.17 10*3/uL 1.09-3.23 = 731-0) MONO x10^3 (test code 0.38 10*3/uL 0.36-1.02 = 742-7) EOS x10^3 (test code = 0.10 10*3/uL 0.06-0.53 711-2) BASO x10^3 (test code <0.03 0.01-0.09 = 704-7) Lab Interpretation Abnormal (test code = 00019-8) [facility] THRM[facility] [id number] 03:20:05 Test Item Value Reference Range Interpretation Comments APTT Patient (test See_Comment [Automat ed code = 3173-2) message] The system which generated this result transmitted reference range : 23 - 38 Seconds . The reference range was not used to interpr et this result as normal/abnormal . MELYSSA (test code = MELYSSA) The [facility] patient population mean normal value for aPTT is 30 seconds. Lab Interpretation Normal (test code = 75912-8) [facility] / [id number] 03:18:04 Test Item Value Reference Range Interpretation Comments PROTIME PATIENT (test See_Comment H [Auto mated message] code = 5964-2) The system wh ich generated this result transmitted ref erence range: 12.0 - 1 4.7 Seconds. The reference range was not used to int erpret this result as normal/abnormal . INR (test code = 6301-6) Nor mal INR <1.1; Warfarin Therap eutic range 2.0 to 3. 0 or 2.5 to 3.5, dep ending upon the indica tions. Lab Interpretation (test Abnormal code = 26886-7) [facility] [id number] 02:16:25 Test Item Value Reference Interpretation Comments Range TROPONIN I (test 0.075 ng/mL See_Comment H [Automated code = 3753166859) message] The system which generated this result transmitted reference range : <=0.034. The reference range was not used to interpret this result as normal/abnormal . MELYSSA (test code = Reference (Normal) MELYSSA) Range (defined by the 99th percentile reference limit): <= 0.034 ng/mL Note: Cardiac troponin begins to rise 3-4 hours after the onset of ischemia. Repeat in 4-6 hours if the sample was drawn within 3-4 hours of the onset of the symptom and found normal. Diagnosis of myocardial injury is made with acute changes in cTn concentrations with at least one serial sample above the 99th percentile upper reference limit (URL), taken together with the patient's clinical presentation. Biotin has been reported to cause a negative bias, interpret results relative to patient's use of biotin. Lab Interpretation Abnormal (test code = 36203-9) [facility]-TERMINAL [id number] 02:13:05 Test Item Value Reference Range Interpretation Comments NT-proBNP (test code 8240 pg/mL See_Comment H [Autom ated = 0865617305) message] The system which generated this result transmitted reference range : <=125. The reference range was not used to interpret this result as normal/abnormal . MELYSSA (test code = MELYSSA) Biotin has been reported to cause a negative bias, interpret results relative to patient's use of biotin. Lab Interpretation Abnormal (test code = 60003-8) [facility]COMP. METABOLIC PANEL (55579)2022-01-07 02:04:40 Test Item Value Reference Range Interpretation Comments NA (test code = 135 mmol/L 135-145 5949773373) K (test code = 4.1 mmol/L 3.5-5.0 2659092739) CL (test code = 102 mmol/L 98-108 2490955018) CO2 TOTAL (test code = 27 mmol/L 23-31 8128799006) AGAP (test code = 2-16 0892043875) BUN (test code = 26 mg/dL 7-23 H 8771439145) GLUCOSE (test code = 154 mg/dL 70-110 H 8265869894) CREATININE (test code = 1.09 mg/dL 0.60-1.25 5002642425) TOTAL BILI (test code = 2.1 mg/dL 0.1-1.1 H 1472381283) CALCIUM (test code = 7.3 mg/dL 8.6-10.6 L 1567608002) T PROTEIN (test code = 7.1 g/dL 6.3-8.2 9829121928) ALBUMIN (test code = 3.4 g/dL 3.5-5.0 L 9295422879) ALK PHOS (test code = 123 U/L 34-122 H 9082185947) ALTv (test code = 57 U/L 5-50 H 1742-6) AST(SGOT) (test code = 91 U/L 13-40 H 7743140145) eGFR (test code = mL/min/1.73m2 2848111418) MELYSSA (test code = MELYSSA) Association of Glomerular Filtration Rate (GFR) and Staging of Kidney Disease* + --+ --+ ------+| GFR (mL/min/1.73 m2) ?| With Kidney Damage ?| ?Without Kidney Damage+ --------+ --------+ +| ?>90 ?| ?Stage one ?| ? Normal ?+ ---+ ---+ -------+| ?60-89 ?| ?Stage two ?| ? Decreased GFR ? + --+ --+ ------+| ?30-59 ?| ?Stage three ?| ? Stage three ? + --+ --+ ------+| ?15-29 ?| ?Stage four ? | ? Stage four ?+ ---+ ---+ -------+| ?<15 (or dialysis) ? ?| ?Stage five ? | ? Stage five ?+ ---+ ---+ -------+ *Each stage assumes the associated GFR level has been in effect for at least three months. ?Stages 1 to 5, with or without kidney disease, indicate chronic kidney disease. Notes: Determination of stages one and two (with eGFR >59mL/min/1.73 m2) requires estimation of kidney damage for at least three months as defined by structural or functional abnormalities of the kidney, manifested by either:Pathological abnormalities or Markers of kidney damage (including abnormalities in the composition of the blood or urine or abnormalities in imaging tests). Lab Interpretation Abnormal (test code = 65334-1) [facility] IDENTIFICATION [id number] 13:57:00 Test Item Value Reference Interpretation Comments Range LISTERIA MONOCYTOGENES Not Not detected (test code = 20160829) detected STAPHYLOCOCCUS (test Detected Not detected A code = 5925905) STAPHYLOCOCCUS AUREUS Detected Not detected A Methic illin-susceptible (test code = 20161102) S. aur eus (MSSA)First-kanwal e therapy: Cefazolin or Ox acillin (Oxacillin pref erred if PHYSIOLOGIST involvement ) ID CONSULTATION REQUIREDStaphyl ococcus aureus DETECTED MecA NOT DETECTED Refere nce Range: Not Detected STREPTOCOCCUS (test Not Not detected code = 5134532) detected STREPTOCOCCUS Not Not detected AGALACTIAE (GROUP B) detected (test code = 2898380) STREPTOCOCCUS Not Not detected PNEUMONIAE (test code detected = 1945208) STREPTOCOCCUS PYOGENES Not Not detected (GROUP A) (test code = detected 2374096) ACINETOBACTER Not Not detected BAUMANNII (test code = detected 3576735) HAEMOPHILUS INFLUENZAE Not Not detected (test code = 0650223) detected NEISSERIA MENINGITIDIS Not Not detected (test code = 4346130) detected ENTEROBACTERIACEAE Not Not detected (test code = 0742026) detected ENTEROBACTER CLOACOE Not Not detected COMPLEX (test code = detected 2640272) KLEBSIELLA OXYTOCA Not Not detected (test code = 5729623) detected KLEBSIELLA PNEUMONIAE Not Not detected (test code = 1650) detected PROTEUS (test code = Not Not detected 4907276) detected SERRATIA MARCESCENS Not Not detected (test code = 2551466) detected ESTEPHANIA ALBICANS (test Not Not detected code = 8683148) detected ESTEPHANIA GLABRATA (test Not Not detected code = 5180879) detected ESTEPHANIA KRUSEI (test Not Not detected code = 2527358) detected ESTEPHANIA PARAPSILOSIS Not Not detected (test code = 6419459) detected ESTEPHANIA TROPICALIS Not Not detected (test code = 5583309) detected ESCHERICHIA COLI (test Not Not detected code = 3323409) detected METHICILLIN-RESISTANCE Not Not detected GENE (test code = detected 6472412) VANCOMYCIN-RESISTANCE Not detected GENE (test code = 0482453) CARBAPENEM-RESISTANCE Not detected GENE (test code = 1915963) ENTEROCOCCUS-BEAKER Not Not detected (test code = 2954184) detected PSEUDOMONAS Not Not detected AERUGINOSA-BEAKER detected (test code = 6762065) Other bacteria and resistance markers not targeted by this PCR panel cannot be excluded; therefore clinical correlation and follow up of serology, culture results, and other molecular studies is required. The results are not intended to be used as the sole means for clinical diagnosis or patient management decisions. This sample was tested at the [facility] using the Viralheat Blood Culture ID Panel. It is FDA cleared and has been verified and approved by the [facility] for clinical use. This laboratory is CLIA-certified and College ofAmerican Pathologists (CAP)-accredited to perform high complexity testing.BLOOD CULTURE 2019-11-12 13:16:00 Test Item Value Reference Interpretation Comments Range CULTURE (BEAKER) STAPHYLOCOCCUS A From Mariaelenae robic (test code = 1095) AUREUS Bottle On [...] in clusters BODY FLUID CULTURE + GRAM [id number] 13:16:00 Test Item Value Reference Interpretation Comments [...] (BEAKER) (test code = cocci in pairs 507100) BLOOD [id number] 08:01:00 Test Item Value Reference Range Interpretation Comments CULTURE (BEAKER) (test No growth in 5 days code = 1095) BLOOD [id number] 08:01:00 Test Item Value Reference Range Interpretation Comments CULTURE (BEAKER) (test No growth in 5 days code = 1095) POCT-GLUCOSE [id number] 11:43:00 Test Item Value Reference Range Interpretation Comments POC-GLUCOSE METER 147 mg/dL 70-110 H TESTED AT [facility] 6720 (BEAKER) (test code = [facility] 1538) [address] BLOOD [id number] 08:01:00 Test Item Value Reference Range Interpretation Comments CULTURE (BEAKER) (test No growth in 5 days code = 1095) BLOOD [id number] 08:01:00 Test Item Value Reference Range Interpretation Comments CULTURE (BEAKER) (test No growth in 5 days code = 1095) POCT-GLUCOSE [id number] 07:08:00 Test Item Value Reference Range Interpretation Comments POC-GLUCOSE METER 114 mg/dL 70-110 H TESTED AT [facility] 67[address] (BEAKER) (test code = [facility] 1538) [address] BASIC METABOLIC [id number] 07:04:00 Test Item Value Reference Range Interpretation [...] 697) EGFR (BEAKER) (test 95 mL/min/1.73 ESTIMA SUPRIYA GFR IS code = 1092) sq m NOT ACCURATE CREATININE CLEARANCE IN PREDICTING GLOMERULAR FILTRATION RATE . ESTIMATED GFR I S NOT APPLICABLE FOR DIALYSIS PATIEN TS. [id number] 07:03:00 Test Item Value Reference Range Interpretation Comments MAGNESIUM (BEAKER) 1.5 mg/dL 1.6-2.6 L Specimen slightly (test code = 627) hemolyzed [id number] 07:03:00 Test Item Value Reference Range Interpretation Comments PHOSPHORUS (BEAKER) 3.2 mg/dL 2.3-4.7 Specimen slightly (test code = 604) hemolyzed HEPATIC FUNCTION [id number] 07:03:00 Test Item Value Reference Range Interpretation [...] 347) hemolyzed CBC W/PLT COUNT & AUTO [id number] 06:32:00 Test Item Value Reference Range Interpretation [...] PERCENT (BEAKER) (test code = 2801) POCT-GLUCOSE [id number] 21:46:00 Test Item Value Reference Range Interpretation Comments POC-GLUCOSE METER 149 mg/dL 70-110 H TESTED AT [facility] 6720 (BEAKER) (test code = JOAQUIN BARAJAS 1538) [address] BLOOD [id number] 20:01:00 Test Item Value Reference Range Interpretation Comments CULTURE (BEAKER) (test No growth in 5 days code = 1095) POCT-GLUCOSE [id number] 17:42:00 Test Item Value Reference Range Interpretation Comments POC-GLUCOSE METER 133 mg/dL 70-110 H TESTED AT [facility] 67[address] (BEAKER) (test code = [facility] 1538) [address] POCT-GLUCOSE [id number] 12:10:00 Test Item Value Reference Range Interpretation Comments POC-GLUCOSE METER 198 mg/dL 70-110 H TESTED AT [facility] 67[address] (BEAKER) (test code = [facility] 1538) [address] [id number] 09:20:00 Test Item Value Reference Range Interpretation Comments PHOSPHORUS (BEAKER) (test code = 3.3 mg/dL 2.3-4.7 604) [id number] 09:20:00 Test Item Value Reference Range Interpretation Comments MAGNESIUM (BEAKER) (test code = 1.6 mg/dL 1.6-2.6 627) BASIC METABOLIC [id number] 09:20:00 Test Item Value Reference Range Interpretation [...] 697) EGFR (BEAKER) (test 96 mL/min/1.73 ESTIMA SUPRIYA GFR IS code = 1092) sq m NOT ACCURATE CREATININE CLEARANCE IN PREDICTING GLOMERULAR FILTRATION RATE . ESTIMATED GFR I S NOT APPLICABLE FOR DIALYSIS PATIEN TS. HEPATIC FUNCTION [id number] 09:20:00 Test Item Value Reference Range Interpretation [...] 6-55 347) CBC W/PLT COUNT & AUTO [id number] 08:57:00 Test Item Value Reference Range Interpretation [...] PERCENT (BEAKER) (test code = 2801) POCT-GLUCOSE [id number] 08:54:00 Test Item Value Reference Range Interpretation Comments POC-GLUCOSE METER 180 mg/dL 70-110 H TESTED AT [place] [address] (BEAKER) (test code = [facility] 1538) [address] BLOOD [id number] 08:01:00 Test Item Value Reference Range Interpretation Comments CULTURE (BEAKER) (test No growth in 5 days code = 1095) BLOOD [id number] 02:01:00 Test Item Value Reference Range Interpretation Comments CULTURE (BEAKER) (test No growth in 5 days code = 1095) POCT-GLUCOSE [id number] 21:41:00 Test Item Value Reference Range Interpretation Comments POC-GLUCOSE METER 196 mg/dL 70-110 H TESTED AT [place] [address] (BEAKER) (test code = [facility] 1538) [address] POCT-GLUCOSE [id number] 18:08:00 Test Item Value Reference Range Interpretation Comments POC-GLUCOSE METER 200 mg/dL 70-110 H TESTED AT [place] [address] (BEAKER) (test code = [facility] 1538) [address] POCT-GLUCOSE [id number] 12:44:00 Test Item Value Reference Range Interpretation Comments POC-GLUCOSE METER 149 mg/dL 70-110 H TESTED AT [place] [address] (BEAKER) (test code = [facility] 1538) [address] POCT-GLUCOSE [id number] 09:15:00 Test Item Value Reference Range Interpretation Comments POC-GLUCOSE METER 253 mg/dL 70-110 H TESTED AT [facility] 6720 (BEAKER) (test code = JOAQUIN Garcia [facility] 1538) [address] [id number] 06:02:00 Test Item Value Reference Range Interpretation Comments PHOSPHORUS (BEAKER) (test code = 3.1 mg/dL 2.3-4.7 604) [id number] 06:02:00 Test Item Value Reference Range Interpretation Comments MAGNESIUM (BEAKER) (test code = 1.3 mg/dL 1.6-2.6 L 627) HEPATIC FUNCTION [id number] 06:02:00 Test Item Value Reference Range Interpretation [...] code = 49 U/L 6-55 347) POCT-GLUCOSE [id number] 22:05:00 Test Item Value Reference Range Interpretation Comments POC-GLUCOSE METER 206 mg/dL 70-110 H TESTED AT [facility] 67[address] (BEAKER) (test code = JOAQUIN Garcia [facility] 1538) [address] POCT-GLUCOSE [id number] 12:29:00 Test Item Value Reference Range Interpretation Comments POC-GLUCOSE METER 252 mg/dL 70-110 H TESTED AT [facility] 6720 (BEAKER) (test code = JOAQUIN Garcia [facility] 1538) [address] BASIC METABOLIC [id number] 10:57:00 Test Item Value Reference Range Interpretation [...] 697) EGFR (BEAKER) (test 91 mL/min/1.73 ESTIMA SUPRIYA GFR IS code = 1092) sq m NOT ACCURATE CREATININE CLEARANCE IN PREDICTING GLOMERULAR FILTRATION RATE . ESTIMATED GFR I S NOT APPLICABLE FOR DIALYSIS PATIEN TS. VANCOMYCIN LEVEL, [id number] 10:56:00 Test Item Value Reference Range Interpretation Comments VANCOMYCIN RANDOM (BEAKER) (test code < ug/mL = 523) Reference Range: No NormalsAMIKACIN LEVEL, [id number] 10:56:00 Test Item Value Reference Range Interpretation Comments AMIKACIN, RANDOM (BEAKER) (test code < ug/mL No Normals = 1833) Reference Range-No NormalsTherapeutic Range (ug/mL)Peak: 25.0-35.0 Trough: 4.0-8.0Toxic: >35.0C-REACTIVE [id number] 10:55:00 Test Item Value Reference Range Interpretation Comments C-REACTIVE PROTEIN (BEAKER) (test 2.04 mg/dL 0.00-0.50 H code = 676) [id number] 10:55:00 Test Item Value Reference Range Interpretation Comments MAGNESIUM (BEAKER) 2.0 mg/dL 1.6-2.6 Specimen moderately (test code = 627) hemolyzed [id number] 10:55:00 Test Item Value Reference Range Interpretation Comments PHOSPHORUS (BEAKER) 3.2 mg/dL 2.3-4.7 Specimen moderately (test code = 604) hemolyzed HEPATIC FUNCTION [id number] 10:55:00 Test Item Value Reference Range Interpretation [...] Specimen moderately (test code = 347) hemolyzed CBC W/PLT COUNT & AUTO [id number] 10:35:00 Test Item Value Reference Range Interpretation [...] PERCENT (BEAKER) (test code = 2801) POCT-GLUCOSE [id number] 07:28:00 Test Item Value Reference Range Interpretation Comments POC-GLUCOSE METER 129 mg/dL 70-110 H TESTED AT [place] [address] ([facility]) (test code = JOAQUIN Garcia [facility] 1538) [address] POCT-GLUCOSE [id number] 21:54:00 Test Item Value Reference Range Interpretation Comments POC-GLUCOSE METER 194 mg/dL 70-110 H TESTED AT [place] [address] ([facility]) (test code = JOAQUIN Garcia [facility] 1538) [address] POCT-GLUCOSE [id number] 18:07:00 Test Item Value Reference Range Interpretation Comments POC-GLUCOSE METER 140 mg/dL 70-110 H TESTED AT [place] [address] ([facility]) (test code = JOAQUIN Garcia [facility] 1538) [address] POCT-GLUCOSE [id number] 11:33:00 Test Item Value Reference Range Interpretation Comments POC-GLUCOSE METER 202 mg/dL 70-110 H TESTED AT [place] [address] (BEAKER) (test code = JOAQUIN Garcia [facility] 1538) [address] POCT-GLUCOSE [id number] 07:33:00 Test Item Value Reference Range Interpretation Comments POC-GLUCOSE METER 183 mg/dL 70-110 H TESTED AT [facility] 6720 (BEAKER) (test code = JOAQUIN Garcia [facility] 1538) [address] BASIC METABOLIC [id number] 05:24:00 Test Item Value Reference Range Interpretation [...] 697) EGFR (BEAKER) (test 98 mL/min/1.73 ESTIMA SUPRIYA GFR IS code = 1092) sq m NOT ACCURATE CREATININE CLEARANCE IN PREDICTING GLOMERULAR FILTRATION RATE . ESTIMATED GFR I S NOT APPLICABLE FOR DIALYSIS PATIEN TS. HEPATIC FUNCTION [id number] 05:22:00 Test Item Value Reference Range Interpretation [...] = 61 U/L 6-55 H 347) CALCIUM, [id number] 04:52:00 Test Item Value Reference Range Interpretation Comments CALCIUM IONIZED (BEAKER) (test 1.06 mmol/L 1.12-1.27 L code = 698) PH, BLOOD (BEAKER) (test code = 7.53 1810) [id number] 04:15:00 Test Item Value Reference Range Interpretation Comments MAGNESIUM (BEAKER) 2.1 mg/dL 1.6-2.6 Specimen moderately (test code = 627) hemolyzed [id number] 04:15:00 Test Item Value Reference Range Interpretation Comments PHOSPHORUS (BEAKER) 3.2 mg/dL 2.3-4.7 Specimen moderately (test code = 604) hemolyzed CBC W/PLT COUNT & AUTO [id number] 03:52:00 Test Item Value Reference Range Interpretation [...] PERCENT (BEAKER) (test code = 2801) POCT-GLUCOSE [id number] 21:58:00 Test Item Value Reference Range Interpretation Comments POC-GLUCOSE METER 250 mg/dL 70-110 H TESTED AT [place] [address] ([facility]) (test code = JOAQUIN Garcia [facility] 1538) [address] [id number] 20:39:00 Test Item Value Reference Range Interpretation Comments MAGNESIUM (BEAKER) 1.6 mg/dL 1.6-2.6 Specimen slightly (test code = 627) hemolyzed [id number] 20:39:00 Test Item Value Reference Range Interpretation Comments POTASSIUM (BEAKER) 3.9 meq/L 3.5-5.1 Specimen slightly (test code = 379) hemolyzed POCT-GLUCOSE [id number] 17:48:00 Test Item Value Reference Range Interpretation Comments POC-GLUCOSE METER 96 mg/dL 70-110 TESTED AT [place] [address] ([facility]) (test code = JOAQUIN Garcia [facility] [address] 1538) POCT-GLUCOSE [id number] 11:14:00 Test Item Value Reference Range Interpretation Comments POC-GLUCOSE METER 317 mg/dL 70-110 H Notified R Judy FERGUSON/TESTED ([facility]) (test code = AT [place] [address] [address] 1538) [facility] 7703 0 RAD, CHEST, 1 VIEW, NON [id number] 09:39:00Reason for exam:->sobShould this be performed at [...] MDReport Verified Date/Time: 05/10/2019 09:39:51 Reading Location: [facility] Radiology Reading Room BASIC METABOLIC [id number] 05:28:00 Test Item Value Reference Range Interpretation [...] 697) EGFR (BEAKER) (test 96 mL/min/1.73 ESTIMA SUPRIYA GFR IS code = 1092) sq m NOT ACCURATE CREATININE CLEARANCE IN PREDICTING GLOMERULAR FILTRATION RATE . ESTIMATED GFR I S NOT APPLICABLE FOR DIALYSIS PATIEN TS. [id number] 05:24:00 Test Item Value Reference Range Interpretation Comments PHOSPHORUS (BEAKER) (test code = 2.7 mg/dL 2.3-4.7 604) [id number] 05:24:00 Test Item Value Reference Range Interpretation Comments MAGNESIUM (BEAKER) (test code = 1.8 mg/dL 1.6-2.6 627) HEPATIC FUNCTION [id number] 05:24:00 Test Item Value Reference Range Interpretation [...] H 347) CBC W/PLT COUNT & AUTO [id number] 04:46:00 Test Item Value Reference Range Interpretation [...] % 0-1 PERCENT (BEAKER) (test code = 3627) POCT-GLUCOSE [id number] 22:14:00 Test Item Value Reference Range Interpretation Comments POC-GLUCOSE METER 159 mg/dL 70-110 H TESTED AT [facility] 6720 (BEAKER) (test code = VONAL[place]A ROMO [place] 1538) [id number] 21:52:00 Test Item Value Reference Range Interpretation Comments MAGNESIUM (BEAKER) 1.5 mg/dL 1.6-2.6 L Specimen slightly (test code = 627) hemolyzed [id number] 21:52:00 Test Item Value Reference Range Interpretation Comments PHOSPHORUS (BEAKER) 2.9 mg/dL 2.3-4.7 Specimen slightly (test code = 604) hemolyzed [id number] 21:52:00 Test Item Value Reference Range Interpretation Comments POTASSIUM (BEAKER) 3.6 meq/L 3.5-5.1 Specimen slightly (test code = 379) hemolyzed POCT-GLUCOSE [id number] 18:30:00 Test Item Value Reference Range Interpretation Comments POC-GLUCOSE METER 150 mg/dL 70-110 H TESTED AT [place] [address] ([facility]) (test code = JOAQUIN Garcia [place] 1538) [id number] POCT-GLUCOSE [id number] 12:14:00 Test Item Value Reference Range Interpretation Comments POC-GLUCOSE METER 229 mg/dL 70-110 H TESTED AT [place] [address] ([facility]) (test code = JOAQUIN Garcia [place] 1538) [id number] POCT-GLUCOSE [id number] 07:18:00 Test Item Value Reference Range Interpretation Comments POC-GLUCOSE METER 111 mg/dL 70-110 H TESTED AT [place] [address] ([facility]) (test code = JOAQUIN Garcia [facility] 1538) [address] BASIC METABOLIC [id number] 05:43:00 Test Item Value Reference Range Interpretation [...] S NOT APPLICABLE FOR DIALYSIS PATIEN TS. [id number] 05:40:00 Test Item Value Reference Range Interpretation Comments PHOSPHORUS (BEAKER) (test code = 3.1 mg/dL 2.3-4.7 604) [id number] 05:40:00 Test Item Value Reference Range Interpretation Comments MAGNESIUM (BEAKER) (test code = 1.9 mg/dL 1.6-2.6 627) HEPATIC FUNCTION [id number] 05:40:00 Test Item Value Reference Range Interpretation [...] 0-0 (BEAKER) (test code = 413) POCT-GLUCOSE [id number] 23:52:00 Test Item Value Reference Range Interpretation Comments POC-GLUCOSE METER 281 mg/dL 70-110 H TESTED AT [place] [address] (BEAKER) (test code = [facility] 1538) [id number] POCT-GLUCOSE [id number] 13:10:00 Test Item Value Reference Range Interpretation Comments POC-GLUCOSE METER 174 mg/dL 70-110 H TESTED AT [place] [address] (BEAKER) (test code = [facility] 1538) [address] POCT-GLUCOSE [id number] 08:09:00 Test Item Value Reference Range Interpretation Comments POC-GLUCOSE METER 185 mg/dL 70-110 H TESTED AT [place] [address] (BEAKER) (test code = [facility] 1538) [address] BASIC METABOLIC [id number] 04:58:00 Test Item Value Reference Range Interpretation [...] S NOT APPLICABLE FOR DIALYSIS PATIEN TS. [id number] 04:51:00 Test Item Value Reference Range Interpretation Comments PHOSPHORUS (BEAKER) (test code = 2.6 mg/dL 2.3-4.7 604) [id number] 04:51:00 Test Item Value Reference Range Interpretation Comments MAGNESIUM (BEAKER) (test code = 1.4 mg/dL 1.6-2.6 L 627) HEPATIC FUNCTION [id number] 04:51:00 Test Item Value Reference Range Interpretation [...] RED BLOOD CELLS 0 /100 WBC 0-[address] ([facility]) (test code = 413) VANCOMYCIN LEVEL, [id number] 00:32:00 Test Item Value Reference Range Interpretation Comments VANCOMYCIN TROUGH ([facility]) (test 16.4 ug/mL 10.0-20.0 code = 522) Please draw 30 minutes before 3rd doseIf vancomycin trough level > 20 mcg/mL, hold next vancomycin dose, and contact MD and pharmacist.POCT-GLUCOSE METER 2019-05-07 21:39:00 Test Item Value Reference Range Interpretation Comments POC-GLUCOSE METER 255 mg/dL 70-110 H TESTED AT [place] [address] ([facility]) (test code = [facility] 1538) [id number] POCT-GLUCOSE [id number] 18:25:00 Test Item Value Reference Range Interpretation Comments POC-GLUCOSE METER 164 mg/dL 70-110 H TESTED AT [place] [address] ([facility]) (test code = [facility] 1538) [id number] POCT-GLUCOSE [id number] 12:10:00 Test Item Value Reference Range Interpretation Comments POC-GLUCOSE METER 129 mg/dL 70-110 H TESTED AT [place] [address] ([facility]) (test code = [facility] 1538) [address] POCT-GLUCOSE [id number] 08:50:00 Test Item Value Reference Range Interpretation Comments POC-GLUCOSE METER 147 mg/dL 70-110 H TESTED AT [place] [address] ([facility]) (test code = [facility] 1538) [address] BASIC METABOLIC [id number] 06:39:00 Test Item Value Reference Range Interpretation [...] S NOT APPLICABLE FOR DIALYSIS PATIEN TS. [id number] 06:36:00 Test Item Value Reference Range Interpretation Comments PHOSPHORUS (BEAKER) (test code = 2.9 mg/dL 2.3-4.7 604) [id number] 06:36:00 Test Item Value Reference Range Interpretation Comments MAGNESIUM (BEAKER) (test code = 1.8 mg/dL 1.6-2.6 627) HEPATIC FUNCTION [id number] 06:36:00 Test Item Value Reference Range Interpretation [...] code = 87 U/L 6-55 H 347) [id number] 05:03:00 Test Item Value Reference Range Interpretation [...] 0-0 (BEAKER) (test code = 413) POCT-GLUCOSE [id number] 00:04:00 Test Item Value Reference Range Interpretation Comments POC-GLUCOSE METER 263 mg/dL 70-110 H TESTED AT [facility] [address] ([facility]) (test code = JOAQUIN BARAJAS 1538) [address] POCT-GLUCOSE [id number] 18:29:00 Test Item Value Reference Range Interpretation Comments POC-GLUCOSE METER 125 mg/dL 70-110 H TESTED AT [facility] [address] ([facility]) (test code = JOAQUIN BARAJAS 1538) [address] BODY FLUID [id number] 15:37:00 Test Item Value Reference Range Interpretation Comments CRYSTALS, BODY FLUID No crystals seen. (BEAKER) (test code = 2165) [id number] Myranda Young MD (BEAKER) (test code = (electronic signature) 9080) BASIC METABOLIC [id number] 13:20:00 Test Item Value Reference Range Interpretation [...] APPLICABLE FOR DIALYSIS PATIEN TS. Specimen slightly [id number] 13:18:00 Test Item Value Reference Range Interpretation Comments MAGNESIUM (BEAKER) 1.8 mg/dL 1.6-2.6 Specimen slightly (test code = 627) hemolyzed [id number] 13:18:00 Test Item Value Reference Range Interpretation Comments PHOSPHORUS (BEAKER) 2.7 mg/dL 2.3-4.7 Specimen slightly (test code = 604) hemolyzed HEPATIC FUNCTION [id number] 13:18:00 Test Item Value Reference Range Interpretation [...] code = 347) hemolyzed Specimen slightly ictericPOCT-GLUCOSE [id number] 12:55:00 Test Item Value Reference Range Interpretation Comments POC-GLUCOSE METER 117 mg/dL 70-110 H TESTED AT [place] [address] ([facility]) (test code = [facility] Radha [facility] 1538) [address] VANCOMYCIN LEVEL, [id number] 12:14:00 Test Item Value Reference Range Interpretation Comments VANCOMYCIN TROUGH (BEAKER) (test 10.0 ug/mL 10.0-20.0 code = 522) POCT-GLUCOSE [id number] 06:26:00 Test Item Value Reference Range Interpretation Comments POC-GLUCOSE METER 121 mg/dL 70-110 H TESTED AT [place] [address] ([facility]) (test code = [facility] Radha [facility] 1538) [address] RAPID DRUG SCREEN, [id number] 04:06:00 Test Item Value Reference Range Interpretation [...] situations. Chain of custody not maintained. Some iefw-pzi-zljtsee medications, as well as adulterants, may cause inaccurate results. Clinical correlation should be applied. A more comprehensivedrug screen or confirmation of a detected drug may be performed upon request.POCT-GLUCOSE [id number] 00:34:00 Test Item Value Reference Range Interpretation Comments POC-GLUCOSE METER 171 mg/dL 70-110 H TESTED AT [facility] [address] ([facility]) (test code = JOAQUIN Garcia [facility] 1538) [address] POCT-GLUCOSE [id number] 18:00:00 Test Item Value Reference Range Interpretation Comments POC-GLUCOSE METER 283 mg/dL 70-110 H TESTED AT [place] [address] ([facility]) (test code = JOAQUIN Garcia [facility] 1538) [address] RAD, LEG, [id number] 17:07:00Reason for exam:->evaluate for air concerning for [...] to the proximal tibia. Signed: Ayanna Lundberg MDReport Verified Date/Time: 05/05/2019 17:07:13 Reading Location: [address] Ortho Consult Reading Room [id number] 16:54:00 Test Item Value Reference Range Interpretation Comments PARTIAL THROMBOPLASTIN TIME 32.0 seconds 22.5-36.0 ([place]) (test code = 760) PROTHROMBIN [id number] 16:53:00 Test Item Value Reference Range Interpretation [...] mechanical heart valves.CBC W/PLT COUNT & AUTO [id number] 16:46:00 Test Item Value Reference Range Interpretation [...] = 700) BODY FLUID CELL COUNT WITH [id number] 16:32:00 Test Item Value Reference Range Interpretation Comments APPEARANCE FLUID (BEAKER) (test Cloudy Clear A code = 510) COLOR FLUID (BEAKER) (test code Red Colorless, Straw A = 511) RBC FLUID (BEAKER) (test code = 95829 /cu mm <=1 H 513) ADJUSTED WBC [...] Cup (test code = 2873) BASIC METABOLIC [id number] 16:31:00 Test Item Value Reference Range Interpretation [...] S NOT APPLICABLE FOR DIALYSIS PATIEN TS. [id number] 16:30:00 Test Item Value Reference Range Interpretation Comments PHOSPHORUS (BEAKER) (test code = 2.3 mg/dL 2.3-4.7 604) [id number] 16:30:00 Test Item Value Reference Range Interpretation Comments MAGNESIUM (BEAKER) (test code = 1.4 mg/dL 1.6-2.6 L 627) C-REACTIVE [id number] 16:30:00 Test Item Value Reference Range Interpretation Comments C-REACTIVE PROTEIN (BEAKER) (test 3.40 mg/dL 0.00-0.50 H code = 676) RAD, CHEST, 1 VIEW, NON [id number] 14:59:00Reason for exam:->dyspnea, history of CHF and [...] MDReport Verified Date/Time: 05/05/2019 14:59:38 Reading Location: [facility] C013Y CT Body Reading Room RAD, KNEE, 3 VIEWS, [id number] 13:28:00 Reason for exam:->concern for septic arthritisShould this be performed at the bedside?->YesFINAL REPORT Right knee. HISTORY: Concern for septic arthritis. COMPARISON STUDY: None available. FINDINGS: Four views of the right knee demonstrate no evidence of fracture, malalignment or effusion. Atherosclerosis is seen. Signed: Ayanna Lundberg MDReport Verified Date/Time: 0 05/05/2019 13:28:26 Reading Location: [address] Ortho Consult Reading Room POCT- GLUCOSE [id number] 12:03:00 Test Item Value Reference Range Interpretation Comments POC-GLUCOSE METER 209 mg/dL 70-110 H TESTED AT [place] [address] ([facility]) (test code = JOAQUIN ROMO [place] 1538) [id number]
[2022-01-17] MEDS ORDERED: METHYLPREDNISOLONE 125 MG INJ ONE (10:42)
[2022-01-17] MEDS ORDERED: IPRATROPIUM BROM 0.5MG/2.5ML ONE (10:43)
[2022-01-17] MEDS ORDERED: Magnesium Sulfate 2gm IVPB 2 G/50 ML BAG IV ONE (10:43)
[2022-01-17] MEDS ORDERED: ALBUTEROL 2.5 MG/3 ML NEB SOL ONE (10:43)
[2022-01-17] MEDS ORDERED: FUROSEMIDE 40 MG/4 ML VIAL ONE (10:46)
[2022-01-17 11:03] LABS: Absolute Lymphocytes (CBC) 2.7 K/uL (0.7-4.9); MPV 10.9 fL (7.6-11.3); Protime INR 1.23; RBC Red Blood Cell Count 4.71 M/uL (4.33-5.43)
--- NOTE | 2022-01-17 11:10 | RAD REPORT ---
EXAM DESCRIPTION: RAD - Chest Single View - 01/17/2022 11:00 am CLINICAL HISTORY: CHEST PAIN COMPARISON: Portable chest 08/25/2021 TECHNIQUE: AP portable chest image was obtained 01/17/2022 11:00 am . FINDINGS: Lung volumes are low. Moderate bilateral pleural effusions are present. Central vasculatur e is prominent. Bilateral upper lung field airspace opacities are present. Lung bases are obscured by the pleural effusions. Infiltrate and/ or atelectasis in each base cannot be excluded. Heart size is grossly normal, partially obscured by the lung base pleural effusion and atelectasis. No pneumothorax. No acute bony abnormality seen. No acute aortic findings suspected. IMPRESSION: CHF/volume overload findings are evident with moderate bilateral pleural effusions. Bilateral airspace opacification could be alveolar edema from CHF/volume overload process. A concurre nt bilateral pneumonia would be possible as well.
[2022-01-17 11:18] LABS: Albumin 2.8 g/dL (3.4-5.0); Bilirubin Direct 1.8 mg/dL (0-0.2); Bilirubin Total 3.3 mg/dL (0.2-1.0); Potassium 4.6 mmol/L (3.5-5.1); Protein, Total 7.7 g/dL (6.4-8.2)
[2022-01-17 11:21] LABS: Troponin High Sensitivity 97.3 pg/mL (<58.9)
--- NOTE | 2022-01-17 12:07 | EDPHYS ---
Physician Documentation [facility] Name: Bob Santana Age: 56 yrs Sex: Male : 1965 Arrival Date: 01/17/2022 Time: 10:30 Bed 2 Private MD: ED Physician Kyrie Alas HPI: 01/17 10:39 This 56 yrs old Male presents to ER via Unassigned with complaints of Shortness of cp Breath. 10:39 The patient has shortness of breath at rest. Onset: The symptoms/episode began/occurred cp 2 day(s) ago. Duration: The symptoms are continuous, and are steadily getting worse. Associated signs and symptoms: Pertinent positives: chest pain, Pertinent negatives: fever. 10:39 Severity of symptoms: in the emergency department the symptoms are unchanged despite home interventions. Historical: - Allergies: 10:51 No Known Allergies; jl7 - Home Meds: 10:48 spironolactone 25 mg oral tab 2 times per day [Active]; Farxiga 5 mg oral tab 1 tab iw once daily [Active]; furosemide 80 mg Oral tab 1 tab 2 times per day [Active]; folic acid 1 mg Oral tab 1 tab once daily [Active]; lisinopril 5 mg Oral tab 1 tab once daily [Active]; sertraline 100 mg oral tab once daily [Active]; aspirin 81 mg Oral chew 1 tab once daily [Active]; lactulose 10 gram/15 mL Oral soln 15 mL once daily [Active]; metoprolol succinate 25 mg oral Tb24 1 tab once daily [Active]; Flovent HFA inhalation 2 times per day [Active]; Albuterol Inhl 3 times per day [Active]; - PMHx: 10:51 "irregular heartbeat"; cardiomegaly; CHF; Cirrhosis; COPD; Hepatitis; Hypertension; jl7 10:48 "irregular heartbeat"; cardiomegaly; CHF; Cirrhosis; COPD; Hepatitis; Hypertension; iw - PSHx: 10:48 R elbow SX; iw - Immunization history:: Adult Immunizations unknown. - Social history:: Smoking status: Patient reports the use of cigarette tobacco products, smokes one-half pack cigarettes per day. ROS: 10:40 Eyes: Negative for injury, pain, redness, and discharge. cp 10:40 Constitutional: Negative for body aches, fever, poor PO intake. 10:40 Cardiovascular: Positive for chest pain, edema. 10:40 Respiratory: Positive for shortness of breath, at rest. 10:40 Neuro: Negative for altered mental status, headache, weakness. 10:40 Abdomen/GI: Negative for abdominal pain, vomiting, diarrhea, constipation. cp 10:40 ENT: Negative for ear pain, sore throat, difficulty swallowing, difficulty handling cp secretions. 10:40 Back: Negative for pain at rest, pain with movement. 10:40 All other systems are negative. Exam: 10:37 ECG was reviewed by the Attending Physician. cp 10:44 Constitutional: The patient appears alert, awake, non-diaphoretic, non-toxic, well cp developed, well nourished, anxious, in obvious distress, mildly distressed. 10:44 Head/Face: Normocephalic, atraumatic. cp 10:44 Eyes: Periorbital structures: appear normal, Conjunctiva: normal, no exudate, no injection, Sclera: no appreciated abnormality, Lids and lashes: appear normal, bilaterally. 10:44 ENT: External ear(s): are unremarkable, Nose: is normal, Mouth: Lips: moist, Oral mucosa: moist, Posterior pharynx: Airway: no evidence of obstruction, patent. 10:44 Neck: ROM/movement: is normal, is supple, without pain, no range of motions limitations, no meningismus. 10:44 Chest/axilla: Inspection: normal, Palpation: is normal, no crepitus, no tenderness. 10:44 Cardiovascular: Rate: tachycardic, Rhythm: regular, Edema: pedal edema, that is moderate, JVD: is not appreciated. 10:44 Respiratory: mild respiratory distress is noted, Respirations: labored breathing, Breath sounds: bronchial sounds, that are moderate, are heard diffusely, stridor, is not appreciated. 10:44 Abdomen/GI: Inspection: distension, that is mild, Bowel sounds: active, all quadrants, Palpation: abdomen is soft and non-tender, in all quadrants, Hernia: noted in the umbilical area. 10:44 Back: pain, is absent, ROM is normal. 10:44 Neuro: Orientation: to person, place \\T\\ time. Mentation: is normal, Motor: moves all fours, strength is normal, Sensation: is normal. Vital Signs: 10:46 BP 124 / 83; Pulse 117; Resp 25; Temp 97.9; Pulse Ox 99% on R/A; Pain 0/10; jl7 11:15 BP 110 / 77; Pulse 111; Resp 33; Pulse Ox 100% ; ww 12:28 BP 94 / 57; Pulse 93; Resp 21; Pulse Ox 98% on BiPAP; ww MDM: 10:33 Patient medically screened. cp 11:00 Differential diagnosis: CHF exacerbation, Chronic Obstructive Pulmonary Disease cp Myocardial Infarction pneumonia, pulmonary edema, Pulmonary Embolism Sepsis Unstable Angina. 12:10 Data reviewed: vital signs, nurses notes, lab test result(s), EKG, radiologic studies, cp plain films. 12:10 Test interpretation: by ED physician or midlevel provider: ECG, plain radiologic cp studies. Physician consultation: Jd Augustine MD was called at 12:05, was contacted at 12:05, regarding admission, to the telemetry unit. patient's condition. 01/17 10:33 Order name: Basic Metabolic Panel 01/17 10:33 Order name: CBC with Diff 01/17 10:33 Order name: LFT's cp 01/17 10:33 Order name: Magnesium; Complete Time: 11:52 cp 01/17 10:33 Order name: NT PRO-BNP; Complete Time: 11:52 cp 01/17 11:52 Interpretation: NT PRO-BNP 01029; Reviewed. 01/17 10:33 Order name: PT-INR; Complete Time: 11:19 cp 01/17 11:20 Interpretation: Reviewed. cp 01/17 10:33 Order name: Troponin HS; Complete Time: 11:52 cp 01/17 11:53 Interpretation: Abnormal: Troponin HS 97.30. cp 01/17 10:33 Order name: COVID-19/FLU A+B (Document "Date of Onset" if Symptomatic) cp 01/17 10:33 Order name: Blood Culture Adult (2) cp 01/17 10:33 Order name: Lactate; Complete Time: 11:52 cp 01/17 11:53 Interpretation: Abnormal: LAC 5.8. cp 01/17 10:33 Order name: Procalcitonin; Complete Time: 12:06 cp 01/17 12:06 Interpretation: Reviewed. cp 01/17 10:33 Order name: Basic Metabolic Panel; Complete Time: 11:52 EDMS 01/17 11:53 Interpretation: Normal except: NA 135; GLUC 133; BUN 29; CRE 1.60; GFR 45. cp 01/17 10:33 Order name: CBC with Automated Diff EDMS 01/17 11:55 Interpretation: Normal except: PLT 81; RDW 18.5. cp 01/17 10:33 Order name: Liver (Hepatic) Function; Complete Time: 11:52 EDMS 01/17 11:54 Interpretation: Normal except: AST 74; BILIT 3.3; BILID 1.8; ALB 2.8; GLOB 4.9; A/G 0.6.cp 01/17 10:31 Order name: Chest Single View XRAY; Complete Time: 11:19 [facility] 01/17 11:29 Order name: CBC Smear Scan EDNC 01/17 14:41 Order name: Lactate Sepsis 2 HR Follow-up EDMS 01/17 15:15 Order name: Comprehensive Metabolic Panel EDNC 01/17 15:16 Order name: Lipid Profile EDNC 01/17 15:16 Order name: CBC with Automated Diff EDMS 01/17 15:16 Order name: CBC with Automated Diff EDMS 01/17 15:16 Order name: Comprehensive Metabolic Panel EDNC 01/17 15:16 Order name: Comprehensive Metabolic Panel EDNC 01/17 15:16 Order name: Comprehensive Metabolic Panel EDNC 01/17 15:16 Order name: CBC with Automated Diff EDMS 01/17 15:16 Order name: CBC with Automated Diff EDMS 01/17 19:14 Order name: Urine Dipstick-Ancillary EDMS 01/17 19:14 Order name: Urine Microscopic Only 01/17 20:06 Order name: Urine Microscopic Only EDMS 01/17 20:43 Order name: Troponin High Sensitivity EDNC 01/17 10:31 Order name: BIPAP [facility] 01/17 10:33 Order name: EKG; Complete Time: 10:33 cp 01/17 10:33 Order name: Cardiac monitoring; Complete Time: 11:30 cp 01/17 10:33 Order name: EKG - Nurse/Tech; Complete Time: 11:31 cp 01/17 10:33 Order name: IV Saline Lock; Complete Time: 11:31 cp 01/17 10:33 Order name: Labs collected and sent; Complete Time: 11:31 cp 01/17 10:33 Order name: O2 Per Protocol; Complete Time: 11:31 cp 01/17 10:33 Order name: O2 Sat Monitoring; Complete Time: 11:30 cp 01/17 10:38 Order name: Walls; Complete Time: 13:39 cp 01/17 15:16 Order name: CONS Physician Consult EDNC 01/17 15:16 Order name: Heart Healthy EDMS 01/17 15:16 Order name: Echo with Doppler EDMS EC:37 Rate is 124 beats/min. Rhythm is regular. VA interval is normal. QRS interval is cp prolonged at 180 msec. QT interval is normal. Interpreted by me. Reviewed by me. Administered Medications: 10:45 Drug: Albuterol - atroVENT (ipratropium) (3:1) (2.5 mg - 0.5 mg) 3 ml Route: Nebulizer; jl7 12:51 Follow up: Response: No adverse reaction jl7 10:48 Drug: SOLU-Medrol (methylPrednisoLONE) 125 mg Route: IVP; Site: left jugular; ke1 12:50 Follow up: Response: No adverse reaction jl7 10:49 Drug: Magnesium Sulfate 2 grams Route: IVPB; Infused Over: 2 hrs; Site: left jugular; ke1 11:49 Follow up: Response: No adverse reaction; IV Status: Completed infusion jl7 10:52 Drug: Lasix (furosemide) 40 mg Route: IVP; Site: left jugular; iw 12:50 Follow up: Response: No adverse reaction jl7 11:21 Not Given (ERD changed order): Xopenex (levalbuterol) (3) 1.25 mg Inhalation once jl7 12:23 Drug: LevaQUIN (levofloxacin) 750 mg Route: IVPB; Site: left jugular; Disposition Summary: 01/17/22 12:06 Hospitalization Ordered Hospitalization Status: Inpatient Admission cp Provider: Jd Augustine cp Condition: Fair cp Problem: an acute exacerbation cp Symptoms: have improved cp Bed/Room Type: Standard cp Location: Telemetry/MedSurg (Inpatient)(01/17/22 22:08) cg Room Assignment: 223(01/17/22 22:08) cg Diagnosis - Unspecified combined systolic (congestive) and diastolic (congestive) heart failure cp - COPD/ Chronic obstructive pulmonary disease with (acute) exacerbation cp Forms: - Medication Reconciliation Form cp - SBAR form cp Addendum: 01/27/2022 09:48 Co-signature as Attending Physician, Kyrie Alas MD I agree with the assessment and c pugh plan of care. Signatures: Dispatcher [employer] EDSvetlana Daniel Corey, MD MD cha Williams, Irene, RN RN iw Kyrie Campbell, PA PA Sofía Aguilar, RN Gladis Jang RN RN jl7 Summer Ramirez RN Milagro Espinoza RN RN ke1 Corrections: (The following items were deleted from the chart) 01/17 10:54 10:51 Home Meds: buspirone 10 mg Oral tab 1 tab 3 times per day; [facility] 10:54 10:51 Home Meds: carvedilol 3.125 mg Oral tab 1 tab 2 times per day; [facility] 10:54 10:51 Home Meds: furosemide 80 mg Oral tab 1 tab once daily; [facility] 10:54 10:51 Home Meds: spironolactone 50 mg Oral tab 1 tab once daily; [facility] 11:00 10:57 ECG was reviewed by the Attending Physician. [facility] 11:00 10:57 Rate is 124 beats/min. Rhythm is regular. VA interval is normal. QRS interval is cp prolonged at 180 msec. QT interval is normal. Interpreted by me. Reviewed by me. 12:19 10:39 Onset: The symptoms/episode began/occurred today, cp 13:44 12:06 Telemetry/MedSurg (Inpatient) bd 13:44 12:06 bd 22:08 13:44 [facility] ER HOLD bd cg 22:08 13:44 ERHOLD- bd cg
--- NOTE | 2022-01-17 12:07 | ER ---
Nurse's Notes [facility] Name: Bob Santana Age: 56 yrs Sex: Male : 1965 Arrival Date: 01/17/2022 Time: 10:30 Bed 2 Private MD: Diagnosis: Unspecified combined systolic (congestive) and diastolic (congestive) heart failure;COPD/ Chronic obstructive pulmonary disease with (acute) exacerbation Presentation: 01/17 10:46 Chief complaint: EMS states: Toned out for SOB x 3 days, ST elevation in route. jl7 Coronavirus screen: shortness of breath. Ebola Screen: No symptoms or risks identified at this time. Initial Sepsis Screen: Does the patient meet any 2 criteria? No. Patient's initial sepsis screen is negative. Does the patient have a suspected source of infection? No. Patient's initial sepsis screen is negative. Risk Assessment: Do you want to hurt yourself or someone else? Patient reports no desire to harm self or others. Onset of symptoms was January 14, 2022. Care prior to arrival: Medication(s) given: Albuterol Neb x 1, ASA, 81 mg, x 4, Atrovent Neb x 1. 10:46 Method Of Arrival: EMS: [facility] 7 10:46 Acuity: KISHAN 2 jl7 Triage Assessment: 10:51 General: Appears distressed, uncomfortable, Behavior is cooperative, anxious. Pain: jl7 Denies pain. Cardiovascular: Patient's skin is warm and dry. Rhythm is regular. Respiratory: Airway is patent Respiratory effort is even, labored, using tripod position, Respiratory pattern is symmetrical, tachypnea. GI: Abdomen is round non-distended. Derm: Skin is pink, warm \\T\\ dry. Historical: - Allergies: 10:51 No Known Allergies; jl7 - Home Meds: 10:48 spironolactone 25 mg oral tab 2 times per day [Active]; Farxiga 5 mg oral tab 1 tab iw once daily [Active]; furosemide 80 mg Oral tab 1 tab 2 times per day [Active]; folic acid 1 mg Oral tab 1 tab once daily [Active]; lisinopril 5 mg Oral tab 1 tab once daily [Active]; sertraline 100 mg oral tab once daily [Active]; aspirin 81 mg Oral chew 1 tab once daily [Active]; lactulose 10 gram/15 mL Oral soln 15 mL once daily [Active]; metoprolol succinate 25 mg oral Tb24 1 tab once daily [Active]; Flovent HFA inhalation 2 times per day [Active]; Albuterol Inhl 3 times per day [Active]; - PMHx: 10:51 "irregular heartbeat"; cardiomegaly; CHF; Cirrhosis; COPD; Hepatitis; Hypertension; jl7 10:48 "irregular heartbeat"; cardiomegaly; CHF; Cirrhosis; COPD; Hepatitis; Hypertension; iw - PSHx: 10:48 R elbow SX; iw - Immunization history:: Adult Immunizations unknown. - Social history:: Smoking status: Patient reports the use of cigarette tobacco products, smokes one-half pack cigarettes per day. Screenin:53 Abuse screen: Denies threats or abuse. Denies injuries from another. Nutritional jl7 screening: No deficits noted. Tuberculosis screening: No symptoms or risk factors identified. Fall Risk IV access (20 points). Total Metzger Fall Scale indicates No Risk (0-24 pts). Assessment: 11:30 Reassessment: Patient states feeling better. Patient states symptoms have improved. ww General: Appears uncomfortable, unkempt. Neuro: Level of Consciousness is awake, alert, obeys commands, Oriented to person, place, time, situation. Respiratory: Airway is patent Respiratory effort is labored, Respiratory pattern is tachypnea. 11:30 Derm: Skin has lesions on bilateral lower extremity Skin is dry. ww 12:28 Reassessment: Patient appears in no apparent distress at this time. Patient and/or ww family updated on plan of care and expected duration. Pain level reassessed. Patient is alert, oriented x 3, equal unlabored respirations, skin warm/dry/pink. Patient states feeling better. Patient states symptoms have improved. 22:58 Pain: Pain began. st1 22:58 Pain: Pain does not radiate. st1 Vital Signs: 10:46 BP 124 / 83; Pulse 117; Resp 25; Temp 97.9; Pulse Ox 99% on R/A; Pain 0/10; jl7 11:15 BP 110 / 77; Pulse 111; Resp 33; Pulse Ox 100% ; ww 12:28 BP 94 / 57; Pulse 93; Resp 21; Pulse Ox 98% on BiPAP; ww ED Course: 10:30 Patient arrived in ED. jl7 10:31 Kyrie Campbell PA is PHCP. cp 10:31 Kyrie Alas MD is Attending Physician. cp 10:35 Inserted saline lock: 18 gauge EJ, using aseptic technique. ,using aseptic technique. iw by willy FERGUSON. 10:51 Triage completed. jl7 10:51 Arm band placed on right wrist. jl7 10:53 Patient has correct armband on for positive identification. Placed in gown. Bed in low jl7 position. Call light in reach. Side rails up X 1. threat monitoring analyst on. Pulse ox on. NIBP on. 10:53 Initial lab(s) drawn, by ED staff, sent to lab. EKG done, by ED staff, reviewed by mindi Alas MD COVID swab sent to lab. O2 via BiPap. 10:55 Gladis Anne RN is Primary Nurse. jl7 11:00 Chest Single View XRAY In Process Unspecified. EDMS 11:42 Basic Metabolic Panel Sent. ww 11:42 CBC with Diff Sent. ww 11:43 LFT's Sent. ww 12:05 Jd Augustine MD is Hospitalizing Provider. cp 19:28 Primary Nurse role handed off by Gladis Anne, RN mw2 22:58 No provider procedures requiring assistance completed. Inserted Patient admitted, IV st1 remains in place. Administered Medications: 10:45 Drug: Albuterol - atroVENT (ipratropium) (3:1) (2.5 mg - 0.5 mg) 3 ml Route: Nebulizer; jl7 12:51 Follow up: Response: No adverse reaction jl7 10:48 Drug: SOLU-Medrol (methylPrednisoLONE) 125 mg Route: IVP; Site: left jugular; ke1 12:50 Follow up: Response: No adverse reaction jl7 10:49 Drug: Magnesium Sulfate 2 grams Route: IVPB; Infused Over: 2 hrs; Site: left jugular; ke1 11:49 Follow up: Response: No adverse reaction; IV Status: Completed infusion jl7 10:52 Drug: Lasix (furosemide) 40 mg Route: IVP; Site: left jugular; iw 12:50 Follow up: Response: No adverse reaction jl7 11:21 Not Given (ERD changed order): Xopenex (levalbuterol) (3) 1.25 mg Inhalation once 7 12:23 Drug: LevaQUIN (levofloxacin) 750 mg Route: IVPB; Site: left jugular; Outcome: 12:06 Decision to Hospitalize by Provider. cp 22:[address] [facility] st1 22:58 Condition: stable 22:58 Demonstrated understanding of Admission 23:03 Patient left the ED. sm5 Signatures: Dispatcher [employer] EDMS Deisy Peralta, RN RN iw Kyrie Campbell PA PA Gladis Martins RN RN jl7 Timo Monteiro 2 Dianna Gallegos RN RN 5 Summer Ramirez RN SKYLAR Emelyn Garrett RN RN 1 Milagro Brown RN RN ke1 Corrections: (The following items were deleted from the chart) 10:54 10:51 Home Meds: buspirone 10 mg Oral tab 1 tab 3 times per day; [facility] 10:54 10:51 Home Meds: carvedilol 3.125 mg Oral tab 1 tab 2 times per day; 10:54 10:51 Home Meds: furosemide 80 mg Oral tab 1 tab once daily; [facility] 10:54 10:51 Home Meds: spironolactone 50 mg Oral tab 1 tab once daily; [facility]
[2022-01-17] MEDS ORDERED: Levofloxacin 750mg IV 750 MG/150 ML BAG IV ONE (12:08)
[2022-01-17] MEDS ORDERED: LIDOCAINE VISCOUS 2% SOLN 15 ML UDC ONE (12:56)
[2022-01-17 13:30] LABS: SARS-COV-2 RT PCR NEGATIVE (NEGATIVE)
[2022-01-17 13:42] LABS: Blood Morphology Comment NOT SEEN (NOT SEEN); Platelet Estimate DECR; Platelets, Giant PRESENT; White Blood Cell Scan OK (OK)
[2022-01-17] MEDS ORDERED: ENOXAPARIN 40 MG/0.4 ML SQ SCH (17:00)
[2022-01-17] MEDS ORDERED: INFLUENZA VACCINE (for 6+ mo) 0.5 ML DOSE IMVAC ONE (17:00)
--- NOTE | 2022-01-17 19:10 | P.HP ---
Certification for Inpatient Patient admitted to: Inpatient With expected LOS: >2 Midnights Patient will require the following post-hospital care: None Practitioner: I am a practitioner with admitting privileges, knowledge of patient current condition, hospital course, and medical plan of care. Services: Services provided to patient in accordance with Admission requirements found in Title 42 Section 412.3 of the Code of Federal Regulations Patient History Date of Service: 01/17/22 Primary Care Provider: Rhianna Reason for admission: chf exacerbation History of Present Illness: Patient was an office patient of [facility] . 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 He has a history of chf, copd and depression. The patient has been having swelling of his legs and increased and sob. The patient came in with sob. Xray bnp and troponin were elevated. The patient also had an elevation of his creatine. Allergies No Known Allergies Allergy (Verified 08/08/21 18:34) Home Medications: Spironolactone 25 mg PO BID 01/17/22 - Past Medical/Surgical History Has patient received pneumonia vaccine in the past: Yes Diabetic: No -: cardiomegaly -: CHF -: COPD -: Bilateral leg lymphedema -: cellulitis -: hepatitis -: Cardiac catheterization -: right elbow - Family History Mother -: Cancer, Other (see notes) Notes: epilepsy Father -: Lung disease, Other (see notes) Notes: alcoholic - Social History Smoking Status: Current every day smoker Alcohol use: No CD- Drugs: Yes Caffeine use: No Place of Residence: Home Review of Systems Respiratory: Shortness of Breath Cardiovascular: Edema (3+) Physical Examination - Vital Signs Blood Pressure: 101/65 Pulse: 94 Respirations: 24 Pulse Ox (%): 98 - Physical Exam General: Alert, In no apparent distress HEENT: Atraumatic, PERRLA, Mucous membr. moist/pink, EOMI, Sclerae nonicteric Neck: Supple, 2+ carotid pulse no bruit, No LAD, Without JVD or thyroid abnormality Respiratory: Clear to auscultation bilaterally, Normal air movement Cardiovascular: Regular rate/rhythm, Normal S1 S2, Edema (3+) Gastrointestinal: Normal bowel sounds, No tenderness Musculoskeletal: No tenderness Integumentary: No rashes Neurological: Normal gait, Normal speech, Normal strength at 5/5 x4 extr, Normal tone, Normal affect Lymphatics: No axilla or inguinal lymphadenopathy - Studies Laboratory Data (last 24 hrs) 01/17/22 10:42: PT 14.2 H, INR 1.23 01/17/22 10:42: WBC 10.40, Hgb 14.5, Hct 44.0, Plt Count 81 L 01/17/22 10:42: Sodium 135 L, Potassium 4.6, BUN 29 H, Creatinine 1.60 H, Glucose 133 H, Magnesium 2.0, Total Bilirubin 3.3 H, AST 74 H, ALT 56, Alkaline Phosphatase 90 Assessment and Plan - Problems (Diagnosis) (1) Acute on chronic systolic heart failure Current Visit: No Status: Acute Plan: will give intermittent furosemide. While monitoring the kidney function Consult to Dr. Quijano. the last ef was 20% ini 2018 Will also monitor his troponins (2) COPD (chronic obstructive pulmonary disease) Current Visit: No Status: Chronic Plan: patient is not wheezing. Will continue breathing treatments. The patient is otherwise doing well. Qualifiers: COPD type: COPD with acute lower respiratory infection Qualified Code(s): J44.0 - Chronic obstructive pulmonary disease with (acute) lower respiratory infection (3) Elevated troponin Current Visit: No Status: Acute Plan: will do serial troponins Consult to Dr. Quijano (4) Acute kidney injury Current Visit: No Status: Acute Plan: baseline creatine is approx 0.85. May be due to fluid overload. Will acess lasix daily if no improvement will consult Nephrololgy Discharge Plan: Home Plan to discharge in: 48 Hours - Advance Directives Does patient have a Living Will: No Does patient have a Durable POA for Healthcare: No - Code Status/Comfort Care Code Status Assessed: Yes Code Status: Full Code Physician Review: Patient Assessed, Agree with Above Assessment and Plan Critical Care: No Time Spent Managing Pts Care (In Minutes): 50
[2022-01-17 19:13] LABS: Urine Blood 2+ (Negative); Urine Glucose Negative (Negative); Urine Protein Negative (Negative)
[2022-01-17 20:05] LABS: Calcium Oxalate Crystals- Ur MODERATE (NONE SEEN); Urine Bacteria <20 /HPF (NONE SEEN); Urine Mucus 3+ /HPF (NONE SEEN)
[2022-01-17] MEDS: BUSPIRONE HCL 5 MG TABLET PO SCH (21:00)
[2022-01-17] MEDS ORDERED: HOME MED 1 EA UNK (Buspirone Hcl [Buspar] 10 MG Tablet) PO SCH (21:00)
[2022-01-17] MEDS: APIXABAN 2.5 MG TABLET PO SCH (21:00)
[2022-01-17] MEDS: TRAZODONE 50 MG TABLET PO SCH (21:00)
[2022-01-17] MEDS: SPIRONOLACTONE 25 MG TABLET PO SCH (21:00)
[2022-01-17] MEDS ORDERED: SPIRONOLACTONE 25 MG TABLET ONE (22:41)
[2022-01-18] MEDS ORDERED: clonazePAM 1 MG TAB PO ONE (02:12)
--- NOTE | 2022-01-18 07:26 | EKG ---
Test Date: 2022-01-17 Test Time: 10:30:37 Material Reprocessing Associate: MEASUREMENT RESULTS: Intervals: Rate: 124 GA: 178 QRSD: 180 QT: 370 QTc: 531 Mikado: P: -14 GA: 178 QRS: 255 T: 63 INTERPRETIVE STATEMENTS: Sinus tachycardia with occasional premature ventricular complexes and fusion complexes Right bundle branch block Inferior infarct, age undetermined Anteroseptal infarct, age undetermined Abnormal ECG Compared to ECG 08/25/2021 11:20:48 Fusion complex(es) now present Ventricular premature complex(es) now present Sinus rhythm no longer present Left-axis deviation no longer present Left ventricular hypertrophy no longer present Early repolarization no longer present Myocardial infarct finding still present Electronically Signed On 01-18-22 07:22:47 CORPORATE TRAVEL COORDINATOR by Shane Quijano
--- NOTE | 2022-01-18 07:53 | P.PN ---
Subjective Date of Service: 01/18/22 Primary Care Provider: Rhianna Chief Complaint: chf exacerbation Subjective: Improving Review of Systems 10-point ROS is otherwise unremarkable Cardiovascular: Edema Physical Examination - Vital Signs Temperature: 98.3 F Blood Pressure: 119/76 Pulse: 110 Respirations: 20 Pulse Ox (%): 98 - Physical Exam General: Alert, In no apparent distress HEENT: Atraumatic, PERRLA, EOMI Neck: Supple, JVD not distended Respiratory: Clear to auscultation bilaterally, Normal air movement Cardiovascular: Regular rate/rhythm, Normal S1 S2, Edema (2+) Gastrointestinal: Normal bowel sounds, No tenderness Musculoskeletal: No tenderness Integumentary: No rashes Neurological: Normal speech, Normal tone, Normal affect Lymphatics: No axilla or inguinal lymphadenopathy - Studies Laboratory Data (last 24 hrs) 01/17/22 10:42: PT 14.2 H, INR 1.23 01/17/22 10:42: WBC 10.40, Hgb 14.5, Hct 44.0, Plt Count 81 L 01/17/22 10:42: Sodium 135 L, Potassium 4.6, BUN 29 H, Creatinine 1.60 H, Glucose 133 H, Magnesium 2.0, Total Bilirubin 3.3 H, AST 74 H, ALT 56, Alkaline Phosphatase 90 Assessment And Plan - Current Problems (Diagnosis) (1) Acute on chronic systolic heart failure Current Visit: No Status: Acute Plan: will give intermittent furosemide. While monitoring the kidney function Consult to Dr. Quijano. the last ef was 20% ini 2019 Will also monitor his troponins 01/18/22 Patient seems to be improving. Bipap will improve pulmonary congestion. Will start him on entresto per Dr. Quijano. Will consider lasix if his creatine is improving. (2) COPD (chronic obstructive pulmonary disease) Current Visit: No Status: Chronic Plan: patient is not wheezing. Will continue breathing treatments. The patient is otherwise doing well. Qualifiers: COPD type: COPD with acute lower respiratory infection Qualified Code(s): J44.0 - Chronic obstructive pulmonary disease with (acute) lower respiratory infection (3) Elevated troponin Current Visit: No Status: Acute Plan: will do serial troponins Consult to Dr. Quijano (4) Acute kidney injury Current Visit: No Status: Acute Plan: baseline creatine is approx 0.85. May be due to fluid overload. Will acess lasix daily if no improvement will consult Nephrololgy Discharge Plan: Home Plan to discharge in: 48 Hours - Code Status/Comfort Care Code Status Assessed: No Physician Review: Patient Assessed, Agree with Above Assessment and Plan Critical Care: No Time Spent Managing PTS Care (In Minutes): 20
[2022-01-18 07:58] LABS: Absolute Lymphocytes (CBC) 1.3 K/uL (0.7-4.9); Hematocrit 39.4 % (39.6-49.0); Lymphocytes % 15.1 % (15.3-44.8); MPV 10.3 fL (7.6-11.3); RBC Red Blood Cell Count 4.28 M/uL (4.33-5.43)
[2022-01-18 08:02] LABS: Albumin 2.2 g/dL (3.4-5.0); Bilirubin Total 1.9 mg/dL (0.2-1.0); Potassium 4.1 mmol/L (3.5-5.1); Protein, Total 6.4 g/dL (6.4-8.2)
[2022-01-18] MEDS: APIXABAN 2.5 MG TABLET PO SCH ×2 (08:14→22:31)
[2022-01-18] MEDS: BUSPIRONE HCL 5 MG TABLET PO SCH ×3 (08:14→22:31)
[2022-01-18] MEDS: SPIRONOLACTONE 25 MG TABLET PO SCH ×2 (08:15→21:00)
[2022-01-18] MEDS: FUROSEMIDE 40 MG/4 ML VIAL IV SCH (08:16)
[2022-01-18] MEDS: SACUBITRIL/VALSARTAN 24/26 MG TAB PO SCH ×2 (08:16→21:00)
[2022-01-18] MEDS: ALPRAZOLAM 1 MG TABLET PO PRN (13:23)
[2022-01-18] MEDS: HYDROCODONE/APAP 7.5/325 MG TAB PO PRN (13:23)
[2022-01-18] MEDS: LEVALBUTEROL 0.63 MG/3 ML NEB NEB PRN ×2 (13:55→19:46)
[2022-01-18] MEDS: TRAZODONE 50 MG TABLET PO SCH (21:00)
[2022-01-19] MEDS: LEVALBUTEROL 0.63 MG/3 ML NEB NEB PRN ×5 (00:59→19:19)
[2022-01-19] MEDS: HYDROCODONE/APAP 7.5/325 MG TAB PO PRN ×2 (01:09→16:43)
[2022-01-19] MEDS: ALPRAZOLAM 1 MG TABLET PO PRN ×2 (01:09→16:40)
[2022-01-19 06:16] LABS: Absolute Lymphocytes (CBC) 1.9 K/uL (0.7-4.9); Hematocrit 42.5 % (39.6-49.0); Lymphocytes % 17.3 % (15.3-44.8); MPV 10.4 fL (7.6-11.3); RBC Red Blood Cell Count 4.49 M/uL (4.33-5.43)
[2022-01-19 06:38] LABS: Albumin 2.4 g/dL (3.4-5.0); Bilirubin Total 1.2 mg/dL (0.2-1.0); Potassium 4.1 mmol/L (3.5-5.1); Protein, Total 6.4 g/dL (6.4-8.2)
--- NOTE | 2022-01-19 07:43 | ECHO ---
HEIGHT: 5 ft 10 in WEIGHT: 204 lb 0 oz DATE OF STUDY: 01/18/[address]: Alvin Moctezuma MD 2-DIMENSIONAL: YES M.MODE: YES DOPPLER: YES COLOR FLOW: YES TDS: NO PORTABLE: NO DEFINITY: NO BUBBLE STUDY: NO DIAGNOSIS: CONGESTIVE HEART FAILURE EXACERBATION CARDIAC HISTORY: CATHERIZATION:YES SURGERY: NO PROSTHETIC VALVE: NO PACEMAKER: NO MEASUREMENTS (cm) DIASTOLIC (NORMALS) SYSTOLIC (NORMALS) IVSd 1.1 (0.6-1.2) LA Diam 3.6 (1.9-4.0) LVEF 25-30% LVIDd 7.5 (3.5-5.7) LVIDs 5.8 (2.0-3.5) %FS % LVPWd 1.3 (0.6-1.2) Ao Diam 2.7 (2.0-3.7) 2 DIMENSIONAL ASSESSMENT: RIGHT ATRIUM: NORMAL LEFT ATRIUM: DILATED RIGHT VENTRICLE: NORMAL LEFT VENTRICLE: DILATED TRICUSPID VALVE: NORMAL MITRAL VALVE: NORMAL PULMONIC VALVE: NORMAL AORTIC VALVE: NORMAL PERICARDIAL EFFUSION: NONE AORTIC ROOT: NORMAL LEFT VENTRICULAR WALL MOTION: SEVERE GLOBAL HYPOKINESIS. DOPPLER/COLOR FLOW: MILD AORTIC STENOSIS 1.6 CENTIMETERS SQUARED. COMMENTS: MILD AORTIC STENOSIS - 1.6 CENTIMETERS SQUARED. LEFT VENTRICULLAR DILATATION. LEFT ATRIAL ENLARGEMENT. SEVERE GLOBAL HYPOKINESIS. TECHNOLOGIST: DOLORES LOPEZ
[2022-01-19] MEDS: FUROSEMIDE 40 MG/4 ML VIAL IV SCH (09:00)
[2022-01-19] MEDS: SACUBITRIL/VALSARTAN 24/26 MG TAB PO SCH (09:53)
[2022-01-19] MEDS: BUSPIRONE HCL 5 MG TABLET PO SCH ×3 (09:53→21:16)
[2022-01-19] MEDS: APIXABAN 2.5 MG TABLET PO SCH ×2 (09:54→21:16)
--- NOTE | 2022-01-19 10:07 | P.PN ---
Subjective Date of Service: 01/19/22 Primary Care Provider: Rhianna Chief Complaint: chf exacerbation Subjective: Improving Review of Systems 10-point ROS is otherwise unremarkable Physical Examination - Vital Signs Temperature: 97.0 F Blood Pressure: 89/59 Pulse: 81 Respirations: 18 Pulse Ox (%): 94 - Physical Exam General: Alert, In no apparent distress HEENT: Atraumatic, PERRLA, EOMI Neck: Supple, JVD not distended Respiratory: Clear to auscultation bilaterally, Normal air movement Cardiovascular: Regular rate/rhythm, Normal S1 S2, Edema (1+) Gastrointestinal: Normal bowel sounds, No tenderness Musculoskeletal: No tenderness Integumentary: No rashes Neurological: Normal speech, Normal tone, Normal affect Lymphatics: No axilla or inguinal lymphadenopathy Assessment And Plan - Current Problems (Diagnosis) (1) Acute on chronic systolic heart failure Current Visit: No Status: Acute Plan: will give intermittent furosemide. While monitoring the kidney function Consult to Dr. Quijano. the last ef was 20% in2018 Will also monitor his troponins 01/19 Patient has improving edema. EF is stable from 2 years ago. His blood pressure and creatine worsened with entresto. Have stopped it at this time. (2) COPD (chronic obstructive pulmonary disease) Current Visit: No Status: Chronic Plan: patient is not wheezing. Will continue breathing treatments. The patient is otherwise doing well. Qualifiers: COPD type: COPD with acute lower respiratory infection Qualified Code(s): J44.0 - Chronic obstructive pulmonary disease with (acute) lower respiratory infection (3) Elevated troponin Current Visit: No Status: Acute Plan: will do serial troponins Consult to Dr. Quijano (4) Acute kidney injury Current Visit: No Status: Acute Plan: baseline creatine is approx 0.85. May be due to fluid overload. Will acess lasix daily if no improvement will consult Nephrololgy Discharge Plan: Home Plan to discharge in: 24 Hours - Code Status/Comfort Care Code Status Assessed: No Physician Review: Patient Assessed, Agree with Above Assessment and Plan Critical Care: No Time Spent Managing PTS Care (In Minutes): 20
[2022-01-19] MEDS: TRAZODONE 50 MG TABLET PO SCH (21:16)
[2022-01-20] MEDS: ALPRAZOLAM 1 MG TABLET PO PRN ×2 (00:15→20:05)
[2022-01-20] MEDS: HYDROCODONE/APAP 7.5/325 MG TAB PO PRN (00:15)
[2022-01-20] MEDS: LEVALBUTEROL 0.63 MG/3 ML NEB NEB PRN ×3 (01:45→13:11)
[2022-01-20] MEDS: BUSPIRONE HCL 5 MG TABLET PO SCH ×3 (08:19→21:47)
[2022-01-20] MEDS: FUROSEMIDE 40 MG/4 ML VIAL IV SCH (08:20)
[2022-01-20] MEDS: APIXABAN 2.5 MG TABLET PO SCH ×2 (08:20→21:49)
[2022-01-20 09:00] LABS: Absolute Lymphocytes (CBC) 1.2 K/uL (0.7-4.9); Hematocrit 42.3 % (39.6-49.0); MPV 10.1 fL (7.6-11.3); RBC Red Blood Cell Count 4.57 M/uL (4.33-5.43)
[2022-01-20 09:02] LABS: Albumin 2.3 g/dL (3.4-5.0); Bilirubin Total 1.2 mg/dL (0.2-1.0); Potassium 4.9 mmol/L (3.5-5.1); Protein, Total 6.3 g/dL (6.4-8.2)
[2022-01-20 09:27] LABS: Blood Morphology Comment NOT SEEN (NOT SEEN); Platelet Estimate DECR
--- NOTE | 2022-01-20 09:28 | CON ---
Date of Consultation: 01/18/2022 Reason For Consultation: Congestive heart failure. History Of Present Illness: Mr. Dhaliwal is known to us from previous hospital admission. He has carlos re chronic systolic congestive heart failure with an ejection fraction of 25%. He has a history of c irrhosis, COPD, atrial fibrillation, hypertension. Comes in with PND, shortness of breath, pedal marina ma. No palpitation. No syncope. No chest pain. Denied any fever or chills or cough. His O2 satur ation was 98% on BiPAP and CPAP. His troponin was 97. Creatinine is 1.6. Chest x-ray showed failur e. Past Medical History: As stated above. Allergies: NONE. Review of Systems: Negative. Social History: Negative. Family History: Noncontributory. Medications: At home include Eliquis, Aldactone 25 b.i.d., and Lasix. Physical Examination: General: O2 saturation 98%. Mild respiratory distress. No chest pain. Vital Signs: Stable, afebrile. He is in sinus rhythm. HEENT: Negative. Neck: Supple without any bruit, lymphadenopathy, JVD, or thyromegaly. Chest: Reveals rales both bases. Cardiac: Revealed a regular rhythm and rate with S3 gallops. No murmurs or rubs. Abdomen: Benign. Extremities: Revealed 2+ edema to the knees. Diagnostic Data: As stated earlier. Impression And Plan: Acute on chronic systolic congestive heart failure, ejection fraction 25%. He is on Aldactone 25 b.i.d. He is on IV Lasix. We could probably increase his IV Lasix. Another echo cardiogram is pending. We should consider carvedilol. We should put him on Entresto 24/26 mg 1 p.o. b.i.d. That case was discussed with Dr. Moctezuma. He has had a normal heart catheterization in 2019. I think if his ejection fraction stays low, we should consider him for a biventricular pacemaker and defibrillator. Hopefully, he will follow up with medicine be compliant and follow up with us as an outpatient. His other problems including cirrhosis, chronic obstructive pulmonary disease, atrial fi brillation, and hypertension are stable. He is on Eliquis and we will continue that. COSME/DAVID Voice ID: [id number] Report ID: [id number]
--- NOTE | 2022-01-20 13:44 | P.PN ---
Subjective Date of Service: 01/20/22 Primary Care Provider: Rhianna Chief Complaint: chf exacerbation Subjective: No new changes Review of Systems 10-point ROS is otherwise unremarkable Physical Examination - Vital Signs Temperature: 97.5 F Blood Pressure: 92/52 Pulse: 86 Respirations: 20 Pulse Ox (%): 97 - Physical Exam General: Alert, In no apparent distress HEENT: Atraumatic, PERRLA, EOMI Neck: Supple, JVD not distended Respiratory: Clear to auscultation bilaterally, Normal air movement Cardiovascular: Regular rate/rhythm, Normal S1 S2 Gastrointestinal: Normal bowel sounds, No tenderness Musculoskeletal: No tenderness Integumentary: No rashes Neurological: Normal speech, Normal tone, Normal affect Lymphatics: No axilla or inguinal lymphadenopathy Assessment And Plan - Current Problems (Diagnosis) (1) Acute on chronic systolic heart failure Current Visit: No Status: Acute Plan: will give intermittent furosemide. While monitoring the kidney function Consult to Dr. Quijano. the last ef was 20% in2018 Will also monitor his troponins 01/19 Patient has improving edema. EF is stable from 2 years ago. His blood pressure and creatine worsened with entresto. Have stopped it at this time. (2) COPD (chronic obstructive pulmonary disease) Current Visit: No Status: Chronic Plan: patient is not wheezing. Will continue breathing treatments. The patient is o therwise doing well. Qualifiers: COPD type: COPD with acute lower respiratory infection Qualified Code(s): J44.0 - Chronic obstructive pulmonary disease with (acute) lower respiratory infection (3) Elevated troponin Current Visit: No Status: Acute Plan: will do serial troponins Consult to Dr. Quijano (4) Acute kidney injury Current Visit: No Status: Acute Plan: baseline creatine is approx 0.85. May be due to fluid overload. Will acess lasix daily if no improvement will consult Nephrololgy 01/[address] Reynolds Discharge Plan: Home Plan to discharge in: 24 Hours - Code Status/Comfort Care Code Status Assessed: No Physician Review: Patient Assessed, Agree with Above Assessment and Plan Critical Care: No Time Spent Managing PTS Care (In Minutes): 25
[2022-01-20] MEDS: TRAZODONE 50 MG TABLET PO SCH (21:00)
[2022-01-20 23:59] LABS: Absolute Lymphocytes (CBC) 0.8 K/uL (0.7-4.9); Hematocrit 42.5 % (39.6-49.0); Lymphocytes % 12.7 % (15.3-44.8); MPV 10.3 fL (7.6-11.3); RBC Red Blood Cell Count 4.46 M/uL (4.33-5.43)
[2022-01-21 00:02] LABS: Urine Appearance CLEAR (Clear); Urine Bilirubin NEGATIVE (Negative); Urine Blood 3+ (Negative); Urine Color YELLOW (Yellow); Urine Glucose NEGATIVE (Negative); Urine Protein NEGATIVE (Negative); Urine Specific Gravity 1.015 (1.005-1.030)
[2022-01-21 00:05] LABS: Protime INR 1.46
[2022-01-21 00:06] LABS: Urine Microscopic Reflex ORDER UMIC
[2022-01-21 00:16] LABS: Albumin 2.1 g/dL (3.4-5.0); Bilirubin Direct 0.9 mg/dL (0-0.2); Bilirubin Total 1.2 mg/dL (0.2-1.0); Potassium 5.1 mmol/L (3.5-5.1); Protein, Total 5.9 g/dL (6.4-8.2)
[2022-01-21 00:17] LABS: Urine Bacteria 20-50 /HPF (NONE SEEN); Urine RBC >50 /HPF (NONE SEEN)
[2022-01-21] MEDS: BUSPIRONE HCL 5 MG TABLET PO SCH ×4 (00:49→20:30)
[2022-01-21] MEDS: HYDROCODONE/APAP 7.5/325 MG TAB PO PRN (02:20)
[2022-01-21] MEDS ORDERED: HYDROMORPHONE HCL 2 MG/ML inj IM PRN (02:42)
--- NOTE | 2022-01-21 06:14 | P.CNS ---
Date of Consult: 01/21/22 Reason for Consult: ABDIAZIZ Requesting Physician: Alvin Moctezuma Primary Care Provider: Rhianna Chief Complaint: chf exacerbation History of Present Illness: 56M w/ PMHx of CHF, COPD, & depresssion who p/w worsening SOB & BLE edema. CXR showed congestion. Troponin & BNP elevated. He was admitted for acute respiratory failure 2/2 CHF exacerbation & possible COPD exacerbation &/or pneumonia. TTE on 01/18/22 showed dilated left atrium and left ventricle, and LVEF of 25-30%. He is referred to nephrology for ABDIAZIZ. His baseline serum creatinine 0.8-1.0 as of 08/25/2021. Serum creatinine at baseline was 1.6 and i ncreased to 2.0, and today at 1.4. His urinalysis was unremarkable. He has mild proteinuria and urine chemistry is not prerenal. Upon my evaluation, his vital signs were stable. He was in acute respiratory distress with increased work of breathing. He became combative & had more acute distress & was transferred to ICU today. Allergies No Known Allergies Allergy (Verified 08/08/21 18:34) Home Medications: Albuterol Sulfate [Proair Respiclick] 2 puff PO Q6HR PRN 01/17/22 Amoxicillin/Potassium Clav [Amox-Clav 875-125 mg Tablet] 1 tab PO Q12H 01/17/22 Spironolactone 25 mg PO BID 01/17/22 - Past Medical/Surgical History Diabetic: No -: cardiomegaly -: CHF -: COPD -: Bilateral leg lymphedema -: cellulitis -: hepatitis -: Cardiac catheterization -: right elbow - Family History Mother Medical History: Cancer, Other (see notes) Notes: epilepsy Father Medical History: Lung disease, Other (see notes) Notes: alcoholic - Social History Smoking Status: Current every day smoker Alcohol use: No CD- Drugs: Yes Caffeine use: No Place of Residence: Home Review of Systems General: Weakness Eyes: Unremarkable ENT: Unremarkable Respiratory: Shortness of Breath, SOB with Excertion Cardiovascular: Edema, Unremarkable Gastrointestinal: Nausea, Unremarkable Genitourinary: Unremarkable Musculoskeletal: Other (BLE edema) Integumentary: Unremarkable Neurological: Unremarkable Lymphatics: Unremarkable Physical Examination Temp Pulse Resp BP Pulse Ox 99.1 F 101 H 24 H 105/63 95 01/21/22 04:00 01/21/22 04:00 01/21/22 04:00 01/21/22 04:00 01/21/22 04:00 General: Acute distress HEENT: Atraumatic, Normocephalic Neck: Supple Respiratory: Crackles/rales Cardiovascular: No rubs, No murmurs Gastrointestinal: Soft and benign, No guarding Musculoskeletal: No clubbing, Swelling Integumentary: No warmth Neurological: Other (+lethargy) Lymphatics: No axilla or inguinal lymphadenopathy Urinary: Other (no bladder distention) External genitalia: Deferred Rectal: Deferred Conclusions/Impression: # ABDIAZIZ 2/2 CRS1 + prerenal state +urinary retention +/- ATN from prolonged prerenal Baseline serum creatinine 0.8-1.0 as of 08/25/2021 Serum creatinine at baseline was 1.6, increased to 2.0, and today at 1.4 Urinalysis on 01/17/22 was unremarkable Has mild proteinuria 0.3g Urine chemistry on 01/21 is non-prerenal BP currently stable. Keep MAP > 65. Mabel po fluid intake unless he develops hypoNa < 130 Hold Entresto Insert torres Strict I/O Monitor renal panel # Acute respiratory failure 2/ acute on chronic CHF +/- COPD exacerbation +/- bacterial/viral pna CXR + congestion. Troponin & BNP elevated. Covid & flu neg Blood cultures negative F/u sputum culture, Legionella and streptococcal pneumonia urinary antigen, and respiratory viral panel TTE on 01/18/2022 showed dilated LA & LV, LVEF 25-30% Cardiology consult Chest CT on 01/2020 showed no evidence of pulmonary Htn ABG showed acute respi acidosis w/ approp metabolic compensation BiPAP prn Increase Lasix to 160 mg IV every 6 hours 6 doses Low Na/heart healthy diet when back on po intake Started on empiric antibiotics by Radha Receiving steroids, inhalers, nebs Needs Lifevest prior to dc Transfer to ICU # Anemia Mild, monitor H/H
[2022-01-21] MEDS: APIXABAN 2.5 MG TABLET PO SCH ×2 (09:00→20:38)
[2022-01-21] MEDS: FUROSEMIDE 40 MG/4 ML VIAL IV SCH ×3 (09:52→21:04)
[2022-01-21] MEDS ORDERED: LEVALBUTEROL 0.63 MG/3 ML NEB NEB PRN (09:53)
--- NOTE | 2022-01-21 09:53 | P.PN ---
Subjective Date of Service: 01/21/22 Primary Care Provider: Rhianna Chief Complaint: chf exacerbation Subjective: Worsening (much less alert. staying on bipap) Review of Systems 10-point ROS is otherwise unremarkable Physical Examination - Vital Signs Temperature: 98.2 F Blood Pressure: 139/71 Pulse: 103 Respirations: 16 Pulse Ox (%): 90 - Physical Exam General: Alert, In no apparent distress HEENT: Atraumatic, PERRLA, EOMI Neck: Supple, JVD not distended Respiratory: Clear to auscultation bilaterally, Normal air movement Cardiovascular: Regular rate/rhythm, Normal S1 S2 Gastrointestinal: Normal bowel sounds, No tenderness Musculoskeletal: No tenderness Integumentary: No rashes Neurological: Normal speech, Normal tone, Normal affect Lymphatics: No axilla or inguinal lymphadenopathy Assessment And Plan - Current Problems (Diagnosis) (1) Acute on chronic systolic heart failure Current Visit: No Status: Acute Plan: will give intermittent furosemide. While monitoring the kidney function Consult to Dr. Quijano. the last ef was 20% in2018 Will also monitor his troponins 01/19 Patient has improving edema. EF is stable from 2 years ago. His blood pressure and creatine worsened with entresto. Have stopped it at this time. (2) COPD (chronic obstructive pulmonary disease) Current Visit: No Status: Chronic Plan: patient is not wheezing. Will continue breathing treatments. The patient is otherwise doing well. 01/21 Will start him on a low dose of steroids and breathing treatment Qualifiers: COPD type: COPD with acute lower respiratory infection Qualified Code(s): J44.0 - Chronic obstructive pulmonary disease with (acute) lower respiratory infection (3) Elevated troponin Current Visit: No Status: Acute Plan: will do serial troponins Consult to Dr. Quijano (4) Acute kidney injury Current Visit: No Status: Acute Plan: baseline creatine is approx 0.85. May be due to fluid overload. Will acess la six daily if no improvement will consult Nephrololgy 01/[address] Reynolds Discharge Plan: Home Plan to discharge in: 48 Hours - Code Status/Comfort Care Code Status Assessed: No Physician Review: Patient Assessed, Agree with Above Assessment and Plan Critical Care: No Time Spent Managing PTS Care (In Minutes): 25
--- NOTE | 2022-01-21 10:05 | RAD REPORT ---
EXAM DESCRIPTION: Maurice Single View01/21/2022 12:09 am CLINICAL HISTORY: 56 years Male, sepsis screen COMPARISON: Chest x-ray May 03, 2019 FINDINGS: Patchy opacities in both lungs are demonstrated. There is dense opacity in the left lower lung zone. There is suggestion of small bilateral pleural effusions. No pneumothorax. Cardiac silhouette appears enlarged. Osseous structures are unremarkable. IMPRESSION: 1. Opacities in both lungs which may represent pneumonia or pulmonary edema. 2. Small bilateral pleural effusions. 3. Enlarged cardiac silhouette which may be related to cardiomegaly and/or pericardial effusion. Electronically signed by: Prasanna Donato MD 01/21/2022 12:25 AM [facility] Due to temporary technical issues with the PACS/Fluency reporting system, reports are being signed by the in house radiologist without review as a courtesy to ensure prompt reporting. The interpreting r adiologist is fully responsible for the content of the report.
[2022-01-21 11:42] LABS: Arterial Blood Carboxyhemoglob 1.7 % (0-1.5); Blood Gas Oxyhemoglobin 91.7 % (94-97); Blood O2 Saturation 94.1 % (92-98.5)
--- NOTE | 2022-01-21 11:50 | RAD REPORT ---
EXAM DESCRIPTION: Maurice Single View01/21/2022 11:16 am CLINICAL HISTORY: Chest pain COMPARISON: January 21, 2022 FINDINGS: Minimal improvement in diffuse bilateral pulmonary opacities. Moderate bilateral pleural effusions suspected. Heart remains enlarged IMPRESSION: These findings probably indicate CHF. Infection is a another consideration
[2022-01-21 12:46] LABS: UR PROTEIN 26.7 mg/dL (<11.9); Urine Protein/Creatinine Ratio 0.31 ratio (<0.15)
[2022-01-21] MEDS ORDERED: MORPHINE 2 MG/ML SYR IV ONE (14:22)
[2022-01-21] MEDS ORDERED: METHYLPREDNISOLONE 40 MG INJ IV ONE (17:52)
--- NOTE | 2022-01-21 19:52 | RAD REPORT ---
EXAM DESCRIPTION: RAD - Chest Single View - 01/21/2022 7:42 pm CLINICAL HISTORY: picc COMPARISON: Chest Single View dated 01/21/2022; Chest Single View dated 01/21/2022; Chest Single View dated 01/17/2022; Chest Single View dated 08/25/2021 FINDINGS: Interval placement of a right subclavian approach PICC. The tip is difficult to visualize but likely overlies the right atrium. Widespread bilateral airspace disease. Cardiomegaly. Pleural ef fusions. IMPRESSION: Interval placement of a right subclavian approach PICC. The PICC tip is difficult to vis ualize. It probably resides within the right atrium. Recommend retraction by 6 cm and repeat chest ra diograph.
[2022-01-21] MEDS ORDERED: LORazepam 2 MG/ML VIAL IV ONE (20:15)
--- NOTE | 2022-01-21 20:30 | RAD REPORT ---
EXAM DESCRIPTION: RAD - Chest Single View - 01/21/2022 8:24 pm CLINICAL HISTORY: pulled 6cm in PICC COMPARISON: <Comparisons> FINDINGS: The tip of the PICC overlies the superior cavoatrial junction and is in satisfactory posit ion IMPRESSION: PICC in satisfactory position.
[2022-01-21] MEDS: dexAMETHasone 4 MG/ML VIAL IV SCH (20:42)
[2022-01-21] MEDS: Levofloxacin 750mg IV 750 MG/150 ML BAG IV SCH (20:43)
[2022-01-21] MEDS: TRAZODONE 50 MG TABLET PO SCH (20:44)
[2022-01-21] MEDS: ALPRAZOLAM 1 MG TABLET PO PRN (20:45)
[2022-01-21] MEDS: LEVALBUTEROL 0.63 MG/3 ML NEB NEB PRN (21:20)
[2022-01-21] MEDS ORDERED: ZIPRASIDONE MESYLA 20 MG/VIAL IM ONE (21:47)
[2022-01-21] MEDS ORDERED: WATER FOR INJ,STERILE 10 ML ONE (21:47)
[2022-01-21] MEDS: WATER FOR INJ,STERILE 10 ML IM PRN (21:54)
[2022-01-21] MEDS: ZIPRASIDONE MESYLA 20 MG/VIAL IM PRN (21:54)
[2022-01-21 23:03] VITALS: BMI 31.2
[2022-01-21 23:25] LABS: Blood Gas Oxyhemoglobin 90.6 % (94-97); Blood O2 Saturation 93.5 % (92-98.5)
[2022-01-22] MEDS: dexAMETHasone 4 MG/ML VIAL IV SCH ×2 (01:23→08:54)
[2022-01-22] MEDS: HYDROMORPHONE HCL 2 MG/ML inj IV PRN ×2 (01:50→19:47)
[2022-01-22] MEDS: FUROSEMIDE 40 MG/4 ML VIAL IV SCH (03:39)
[2022-01-22 05:42] LABS: Absolute Lymphocytes (CBC) 0.4 K/uL (0.7-4.9); Hematocrit 42.2 % (39.6-49.0); Lymphocytes % 7.5 % (15.3-44.8); MPV 10.1 fL (7.6-11.3); RBC Red Blood Cell Count 4.57 M/uL (4.33-5.43)
[2022-01-22 05:55] LABS: Albumin 2.1 g/dL (3.4-5.0); Bilirubin Total 1.9 mg/dL (0.2-1.0); Magnesium 2.1 mg/dL (1.8-2.4); Phosphorus 2.6 mg/dL (2.5-4.9); Potassium 5.2 mmol/L (3.5-5.1)
[2022-01-22 06:43] LABS: Anisocytosis 1+; Blood Morphology Comment NOTED (NOT SEEN); Platelet Estimate ADEQ; Target Cells 1+; White Blood Cell Scan OK (OK)
[2022-01-22] MEDS: BUSPIRONE HCL 5 MG TABLET PO SCH ×3 (08:58→20:36)
[2022-01-22] MEDS: APIXABAN 2.5 MG TABLET PO SCH (08:58)
[2022-01-22] MEDS ORDERED: NA CHLORIDE 0.9% IV SCH (09:00)
[2022-01-22] MEDS ORDERED: FUROSEMIDE IV SCH (09:00)
[2022-01-22] MEDS: ZIPRASIDONE MESYLA 20 MG/VIAL IM PRN ×2 (09:11→17:07)
[2022-01-22 11:09] LABS: Blood O2 Saturation 89.9 % (92-98.5)
[2022-01-22] MEDS: FUROSEMIDE 100 MG in NA CHLORIDE 0.9% 90 ML IV SCH ×3 (11:15→21:17)
--- NOTE | 2022-01-22 11:47 | PN ---
Date of Progress Note: 01/22/2022 Subjective: The patient is agitated. The patient is on BiPAP. Physical Examination: Vital Signs: When I saw the patient; blood pressure 116/87. The patient is fluctuating on the blood pressure down to the 80. Chest: Crackles bilateral. Heart: S1, S2. Systolic murmur. Abdomen: Soft, nontender. Extremity: Left below-knee amputation. Trace edema. Neuro: The patient agitated. Laboratory Data: Chest x-ray; cardiomegaly, right-sided infiltration on the base with left pleural effusion. WBC 5.8, H and H 13.7/42.2. Sodium 139, potassium 5.2, bicarb 30, BUN 42, creatinine down to 1, GFR of 76, calcium 8.4, phosphorus 2.6, magnesium 2.1, albumin 2.1. Corrected calcium 9.7. Current Medications: Include Lasix 160 q.6, Levaquin, breathing treatment, Eliquis 2.5 b.i.d., dexamethasone 4 mg every 8 hours, hydrocodone. Assessment And Plan: 1. Acute kidney injury secondary to cardiorenal, recovered, back to baseline. Still on the over volume side. I am going to go ahead and start the patient on Lasix drip to avoid any low blood pressure and we will follow up the patient. 2. Hyperkalemia, marginal. I am going to continue to monitor the patient on the diuresis. I am going to go ahead and send for TSH. 3. Congestive heart failure with exacerbation with cardiorenal syndrome. We will try to optimize the fluid status with diuresis. We will follow up with Cardiology. 4. Hypercapnic respiratory failure with metabolic alkalosis, compensated appropriately, secondary to chronic obstructive pulmonary disease exacerbation. Given the finding on the chest x-ray, the patient already on Levaquin. We will continue. 5. Anticoagulation status. The patient's kidney function back to baseline. Normal kidney function. We will increase Eliquis to 5 mg b.i.d. 6. Chronic obstructive pulmonary disease exacerbation as above. Switched to Solu-Medrol. Time spent examining the patient, [id number], discussing with the patient, reviewing data including radiology and laboratory, placing order, discussing the case with other hat steamer including nursing and charge nurse, discussing the case with other subspecialists including hospitalist 35 minutes. JAMEL Voice ID: [id number] Report ID: [id number] ADÁN
--- NOTE | 2022-01-22 15:48 | P.PN ---
Subjective Date of Service: 01/22/22 Primary Care Provider: Rhianna Chief Complaint: chf exacerbation Patient is more calm today. Patient kept on BiPAP all night. PCO2 has decreased. Patient given Geodon last night for agitation. Physical Examination - Vital Signs Temperature: 97 F Blood Pressure: 97/60 Pulse: 100 Respirations: 21 Pulse Ox (%): 96 - Physical Exam General: In no apparent distress, Other (Sedated.) HEENT: Other (BiPAP) Neck: JVD not distended Respiratory: Diminished, Crackles/rales (Mild bibasilar crackles) Cardiovascular: Edema (Bilateral legs.) Gastrointestinal: Soft and benign, Non-distended Musculoskeletal: No tenderness Integumentary: Other (Scratch quintanilla, hyperpigmented rash on bilateral thighs) Neurological: Other (He moves all extremities) - Studies Microbiology Data (last 24 hrs): 01/17/22 10:56 Blood - Blood Aerobic Blood Culture - Final No growth in 5 days. 01/17/22 10:56 Blood - Blood Anaerobic Blood Culture - Final No growth in 5 days. 01/17/22 10:42 Blood - Blood Aerobic Blood Culture - Final No growth in 5 days. 01/17/22 10:42 Blood - Blood Anaerobic Blood Culture - Final No growth in 5 days. Assessment And Plan - Current Problems (Diagnosis) (1) Acute respiratory failure with hypoxia and hypercapnia Current Visit: Yes Status: Acute (2) Acute on chronic systolic heart failure Current Visit: No Status: Acute (3) Anasarca Current Visit: No Status: Acute (4) Cirrhosis of liver Current Visit: No Status: Acute Qualifiers: Hepatic cirrhosis type: alcoholic cirrhosis (5) Acute worsening of stage 3 chronic kidney disease Current Visit: Yes Status: Acute (6) Chronic acquired lymphedema Current Visit: No Status: Chronic (7) Acute urinary retention Current Visit: Yes Status: Acute (8) Acute metabolic encephalopathy Current Visit: Yes Status: Acute - Plan Troponin & BNP elevated. Troponin elevation likely secondary to demand ischemia. Echocardiogram shows EF of 25 to 30%. Lasix therapy per nephrology. Cardiology input appreciated Needs Lifevest Covid & flu neg Blood cultures negative ABG showed acute respi acidosis w/ approp metabolic compensation Patient used BiPAP all night. PCO2 has decreased and expecting improvement in mental status. Transition to O2 by nasal cannula as tolerated. Continue empiric antibiotics. On steroids, inhalers, nebs for COPD exacerbation. Baseline serum creatinine 0.8-1.0 as of 08/25/2021 Serum creatinine improved Urinalysis on 01/17/22 was unremarkable ABDIAZIZ likely prerenal. Entresto is on hold. Maintain Walls catheter Strict I/O Monitor renal panel.
[2022-01-22] MEDS: Levofloxacin 750mg IV 750 MG/150 ML BAG IV SCH (16:15)
[2022-01-22] MEDS: METHYLPREDNISOLONE 40 MG INJ IV SCH (16:16)
[2022-01-22] MEDS: APIXABAN 5 MG TABLET PO SCH (20:36)
[2022-01-22] MEDS: TRAZODONE 50 MG TABLET PO SCH (20:36)
[2022-01-22] MEDS: LEVALBUTEROL 0.63 MG/3 ML NEB NEB PRN (20:39)
[2022-01-22] MEDS ORDERED: LORazepam 2 MG/ML VIAL ONE (22:36)
[2022-01-22] MEDS: LORazepam 2 MG/ML VIAL IV PRN (22:37)
[2022-01-23] MEDS: ZIPRASIDONE MESYLA 20 MG/VIAL IM PRN ×4 (00:28→20:29)
[2022-01-23] MEDS: METHYLPREDNISOLONE 40 MG INJ IV SCH ×3 (01:00→19:17)
[2022-01-23] MEDS: HYDROMORPHONE HCL 2 MG/ML inj IV PRN ×2 (01:58→20:28)
[2022-01-23] MEDS: FUROSEMIDE 100 MG in NA CHLORIDE 0.9% 90 ML IV SCH ×5 (02:19→21:02)
[2022-01-23] MEDS: LORazepam 2 MG/ML VIAL IV PRN ×4 (02:37→19:17)
[2022-01-23 06:59] LABS: Absolute Lymphocytes (CBC) 0.9 K/uL (0.7-4.9); Hematocrit 42.5 % (39.6-49.0); Lymphocytes % 11.4 % (15.3-44.8); MPV 9.9 fL (7.6-11.3)
[2022-01-23 07:22] LABS: Albumin 2.2 g/dL (3.4-5.0); Bilirubin Total 1.4 mg/dL (0.2-1.0); Potassium 4.8 mmol/L (3.5-5.1); Protein, Total 6.2 g/dL (6.4-8.2)
[2022-01-23 07:37] LABS: Albumin 2.3 g/dL (3.4-5.0); Phosphorus 3.6 mg/dL (2.5-4.9); Potassium 4.8 mmol/L (3.5-5.1); Thyroid Stimulating Hormone 2.98 uIU/mL (0.360-3.740)
[2022-01-23] MEDS: APIXABAN 5 MG TABLET PO SCH ×2 (08:01→20:29)
[2022-01-23] MEDS: BUSPIRONE HCL 5 MG TABLET PO SCH ×3 (09:00→20:29)
--- NOTE | 2022-01-23 12:57 | RAD REPORT ---
EXAM DESCRIPTION: RAD - Chest Single View - 01/23/2022 12:49 pm CLINICAL HISTORY: COPD COMPARISON: Chest Single View dated 01/21/2022; Chest Single View dated 01/21/2022; Chest Single View dated 01/21/2022; Chest Single View dated 01/21/2022 FINDINGS: Lines: Right subclavian approach PICC with tip overlying the right atrium. Lungs: Worsening airspace disease bilaterally . Pleural: Increasing bilateral pleural effusions. Cardiac: Cardiomegaly. Bones: No acute fractures. Other: IMPRESSION: Worsened airspace disease bilaterally likely due to enlarging pleural effusions and wors ening airspace disease. This could reflect multifocal pneumonia and/or edema.
--- NOTE | 2022-01-23 13:15 | P.PN ---
Subjective Date of Service: 01/23/22 Primary Care Provider: Rhianna Chief Complaint: chf exacerbation Patient is quite agitated despite receiving IV Ativan. Patient not tolerating oxygen by nasal cannula. Physical Examination - Vital Signs Temperature: 96.9 F Blood Pressure: 101/60 Pulse: 93 Respirations: 27 Pulse Ox (%): 95 - Physical Exam General: In no apparent distress, Confused HEENT: Other (Oxygen by nasal cannula) Neck: Supple Respiratory: Clear to auscultation bilaterally, Diminished Cardiovascular: Regular rate/rhythm, Normal S1 S2, Edema (Bilateral legs) Gastrointestinal: Normal bowel sounds, Soft and benign, Non-distended, No tenderness Musculoskeletal: No tenderness Integumentary: No cyanosis Neurological: Other (Moves all extremities. No focal motor deficit) - Studies Microbiology Data (last 24 hrs): 01/17/22 10:56 Blood - Blood Aerobic Blood Culture - Final No growth in 5 days. 01/17/22 10:56 Blood - Blood Anaerobic Blood Culture - Final No growth in 5 days. 01/17/22 10:42 Blood - Blood Aerobic Blood Culture - Final No growth in 5 days. 01/17/22 10:42 Blood - Blood Anaerobic Blood Culture - Final No growth in 5 days. Assessment And Plan - Current Problems (Diagnosis) (1) Acute respiratory failure with hypoxia and hypercapnia Current Visit: Yes Status: Acute (2) Acute on chronic systolic heart failure Current Visit: No Status: Acute (3) Anasarca Current Visit: No Status: Acute (4) Cirrhosis of liver Current Visit: No Status: Acute Qualifiers: Hepatic cirrhosis type: alcoholic cirrhosis (5) Acute worsening of stage 3 chronic kidney disease Current Visit: Yes Status: Acute (6) Chronic acquired lymphedema Current Visit: No Status: Chronic (7) Acute urinary retention Current Visit: Yes Status: Acute (8) Acute metabolic encephalopathy Current Visit: Yes Status: Acute - Plan Troponin & BNP elevated. Troponin elevation likely secondary to demand ischemia. Echocardiogram shows EF of 25 to 30%. Lasix therapy per nephrology. Cardiology input appreciated Needs Lifevest Covid & flu neg Blood cultures negative ABG showed acute respi acidosis. Status post BiPAP. PCO2 has successfully decreased with BiPAP ventilation. Now transitioned to O2 by nasal cannula. I suspect his agitation is secondary to alcohol withdrawal. Patient placed on CIWA protocol. Now receiving Ativan 4 mg every 4 hours. Continue empiric antibiotics. On steroids, inhalers, nebs for COPD exacerbation. Baseline serum creatinine 0.8-1.0 as of 08/25/2021 Serum creatinine improved Urinalysis on 01/17/22 was unremarkable ABDIAZIZ likely prerenal. Entresto is on hold due to soft blood pressure. Maintain Walls catheter Strict I/O Monitor renal panel. Physician Review: Patient Assessed, Agree with Above Assessment and Plan
[2022-01-23] MEDS ORDERED: ALBUMIN HUMAN 25% 100 ML IV SCH ×3 (14:00)
--- NOTE | 2022-01-23 14:59 | PN ---
Date of Progress Note: 01/23/2022 Subjective: The patient was admitted with cardiorenal syndrome, congestive heart failure with respiratory failure. The patient was started on diuresis. Had good urine output. Yesterday, we switched the patient to Lasix drip given the fact that his blood pressure was marginal. The patient continued to have good diuresis. Physical Examination: Vital Signs: When I saw the patient; blood pressure 101/60, pulse of 93, afebrile. The patient had good urine output of 4200, negative of 3900. Chest: Crackles bilateral. Heart: S1, S2. Systolic murmur. Abdomen: Soft, nontender. Extremity: 1+ edema. Dressing on the left leg with below-knee amputation. Neuro: The patient is sleepy. Moving 4 extremities. No focality. Laboratory Data: WBC 8.1, H and H 13.8/42.5. Sodium 144, potassium 4.8, bicarb 34, BUN 55, creatinine 1.4, GFR of 48, calcium 8.7, phosphorus 3.6. Albumin 2.3, corrected calcium is 10. Current Medications: The patient on include Levaquin 750 daily, Eliquis 5 mg b.i.d., lorazepam, Geodon, Solu-Medrol 40 mg every 8 hours, Lasix drip to 20 mg per hour. Assessment And Plan: 1. Acute kidney injury secondary to cardiorenal. Still, the patient is over volume confirmed with chest x-ray and clinical finding. I am going to continue with Lasix as scheduled. I am going to accept marginal fluctuation in the kidney function in favor of achieving better fluid status for the patient and we will continue to monitor. 2. Hypercalcemia. Marginally has been resolved. 3. Congestive heart failure with exacerbation secondary to cardiorenal. We will continue diuresis. 4. Hypertension, currently blood pressure on the lower side. Continue Lasix. We will utilize blood pressure for more ultrafiltration and diuresis. 5. Chronic obstructive pulmonary disease with hypercapnic respiratory failure as by Pulmonary. 6. Respiratory failure secondary to over volume/chronic obstructive pulmonary disease exacerbation. Continue to achieve better volume control with diuresis. We will follow up with Pulmonary. 7. Altered mental status. Follow up with primary. Time spent examining the patient, [id number], discussing with the patient, reviewing data including radiology and laboratory, placing order, discussing the case with other maintenance team leader including nursing and charge nurse, discussing the case with other subspecialists including hospitalist 35 minutes. JAMEL Voice ID: [id number] Report ID: [id number] ADÁN
[2022-01-23] MEDS: Levofloxacin 750mg IV 750 MG/150 ML BAG IV SCH (16:21)
[2022-01-23] MEDS: LEVALBUTEROL 0.63 MG/3 ML NEB NEB PRN (19:52)
[2022-01-23] MEDS: TRAZODONE 50 MG TABLET PO SCH (20:29)
[2022-01-23] MEDS: WATER FOR INJ,STERILE 10 ML IM PRN (20:29)
[2022-01-23] MEDS: ALPRAZOLAM 1 MG TABLET PO PRN (20:30)
[2022-01-23] MEDS: HYDROCODONE/APAP 7.5/325 MG TAB PO PRN (20:30)
[2022-01-23] MEDS ORDERED: LACTULOSE 20 GM/30 ML UCUP PO PRN (21:00)
[2022-01-23] MEDS: LACTULOSE 20 GM/30 ML UCUP PO SCH (22:00)
[2022-01-24] MEDS: METHYLPREDNISOLONE 40 MG INJ IV SCH ×3 (02:07→16:09)
[2022-01-24] MEDS: LORazepam 2 MG/ML VIAL IV PRN ×5 (02:07→20:22)
[2022-01-24] MEDS: HYDROMORPHONE HCL 2 MG/ML inj IV PRN ×3 (02:07→20:22)
[2022-01-24] MEDS: FUROSEMIDE 100 MG in NA CHLORIDE 0.9% 90 ML IV SCH ×3 (03:08→12:26)
[2022-01-24 05:04] LABS: Absolute Lymphocytes (CBC) 0.6 K/uL (0.7-4.9); Hematocrit 39.7 % (39.6-49.0); Lymphocytes % 10.2 % (15.3-44.8); MPV 9.2 fL (7.6-11.3); RBC Red Blood Cell Count 4.31 M/uL (4.33-5.43)
[2022-01-24] MEDS: ALPRAZOLAM 1 MG TABLET PO PRN ×3 (05:13→20:21)
[2022-01-24] MEDS: ZIPRASIDONE MESYLA 20 MG/VIAL IM PRN ×3 (05:14→20:22)
[2022-01-24] MEDS: WATER FOR INJ,STERILE 10 ML IM PRN (05:14)
[2022-01-24 05:15] LABS: Albumin 2.7 g/dL (3.4-5.0); Bilirubin Total 1.7 mg/dL (0.2-1.0); Phosphorus 5.3 mg/dL (2.5-4.9); Potassium 4.7 mmol/L (3.5-5.1); Protein, Total 6.3 g/dL (6.4-8.2)
[2022-01-24] MEDS: HYDROCODONE/APAP 7.5/325 MG TAB PO PRN ×2 (05:16→13:56)
[2022-01-24] MEDS: LEVALBUTEROL 0.63 MG/3 ML NEB NEB PRN ×2 (05:30→19:39)
[2022-01-24] MEDS: BUSPIRONE HCL 5 MG TABLET PO SCH ×4 (09:00→20:21)
[2022-01-24] MEDS: LACTULOSE 20 GM/30 ML UCUP PO SCH ×3 (09:00→20:22)
[2022-01-24] MEDS: APIXABAN 5 MG TABLET PO SCH ×3 (09:00→20:21)
[2022-01-24] MEDS ORDERED: ACETAZOLAMIDE 500 MG IV IV ONE (12:39)
--- NOTE | 2022-01-24 14:34 | P.PN ---
Subjective Date of Service: 01/24/22 Primary Care Provider: Rhianna Chief Complaint: chf exacerbation Patient is still agitated and confused. History of alcohol abuse. Highly suspect alcohol withdrawal/delirium tremens. Patient tolerating oxygen by nasal cannula. Physical Examination - Vital Signs Temperature: 100.4 F Blood Pressure: 122/75 Pulse: 120 Respirations: 21 Pulse Ox (%): 96 - Physical Exam General: Confused, Other (Agitated) HEENT: Other (Dry oral mucosa. He is breathing with his mouth open.) Neck: JVD not distended Respiratory: Clear to auscultation bilaterally, Normal air movement Cardiovascular: Other (Tachycardia), Edema (Bilateral legs) Gastrointestinal: Normal bowel sounds, Soft and benign, No tenderness Musculoskeletal: No tenderness Integumentary: No cyanosis Neurological: Other (No focal motor deficit.) Assessment And Plan - Current Problems (Diagnosis) (1) Acute respiratory failure with hypoxia and hypercapnia Current Visit: Yes Status: Acute (2) Acute on chronic systolic heart failure Current Visit: No Status: Acute (3) Anasarca Current Visit: No Status: Acute (4) Cirrhosis of liver Current Visit: No Status: Acute Qualifiers: Hepatic cirrhosis type: alcoholic cirrhosis (5) Acute worsening of stage 3 chronic kidney disease Current Visit: Yes Status: Acute (6) Chronic acquired lymphedema Current Visit: No Status: Chronic (7) Acute urinary retention Current Visit: Yes Status: Acute (8) Acute metabolic encephalopathy Current Visit: Yes Status: Acute - Plan Troponin & BNP elevated. Troponin elevation likely secondary to demand ischemia. Echocardiogram shows EF of 25 to 30%. Lasix therapy per nephrology. Seen by cardiology Needs Lifevest Covid & flu neg Blood cultures negative ABG showed acute respiratory acidosis secondary to CO2 retention. Status post BiPAP. PCO2 has successfully decreased with BiPAP ventilation. Patient is now tolerating oxygen by nasal cannula. Agitation is secondary to alcohol withdrawal. Patient placed on CIWA protocol. Now receiving Ativan 4 mg every 4 hours. Continue empiric antibiotics. On steroids, inhalers, nebs for COPD exacerbation. Baseline serum creatinine 0.8-1.0 as of 08/25/2021 Serum creatinine is now trending up. Nephrology is following Urinalysis on 01/17/22 was unremarkable ABDIAZIZ likely prerenal. Entresto is on hold due to soft blood pressure. Maintain Walls catheter Strict I/O Monitor renal panel. Physician Review: Patient Assessed, Agree with Above Assessment and Plan
[2022-01-24] MEDS: Levofloxacin 750mg IV 750 MG/150 ML BAG IV SCH (16:09)
[2022-01-24 19:27] LABS: Potassium 5.2 mmol/L (3.5-5.1)
[2022-01-24] MEDS: TRAZODONE 50 MG TABLET PO SCH (20:21)
[2022-01-25] MEDS: HYDROMORPHONE HCL 2 MG/ML inj IV PRN ×2 (01:37→14:41)
[2022-01-25] MEDS: METHYLPREDNISOLONE 40 MG INJ IV SCH ×2 (01:38→07:43)
[2022-01-25] MEDS: LEVALBUTEROL 0.63 MG/3 ML NEB NEB PRN (02:06)
--- NOTE | 2022-01-25 03:38 | PN ---
Date of Progress Note: 01/24/2022 Chief Complaint: [id number] kidney injury, cardiorenal syndrome. History Of Present Illness: Renal function has declined over the last 24 hours. The patient has erickson yuria due to diuretic. The patient was started on Lasix drip and the blood pressure today is 101/60. The patient responded to IV Lasix and plan is to hold Lasix drip and give Diamox for metabolic joe losis. The patient denies complaints. Physical Examination: Lungs: Crackles bilaterally at bases. Heart: S1, S2. Extremities: 1+ edema. Laboratory Data: Sodium 145, potassium 4.7, chloride 107, CO2 37, BUN 64, creatinine 1.6, glucose 19 8. Impression: 1.Cardiorenal syndrome, anasarca, fluid overload, congestive heart failure exacerbation. The patien t is on Lasix drip. The patient developed metabolic alkalosis. Plan is to hold Lasix drip and give Diamox. Blood work will be reevaluated and the patient may require maintenance diuretic at that poin t. 2.Respiratory failure with volume overload, congestive heart failure, chronic obstructive pulmonary disease. Continue bronchodilator. Adjust diuretic for volume control. 3.Hypertension. Monitor blood pressure closely and due to hypotensive episode Lasix drip is today o n hold. The patient has nonoliguric urine output. Monitor electrolytes. EB/MODL Voice ID: [id number] Report ID: [id number]
[2022-01-25 04:59] LABS: Absolute Lymphocytes (CBC) 0.6 K/uL (0.7-4.9); Hematocrit 40.9 % (39.6-49.0); Lymphocytes % 11.7 % (15.3-44.8); MPV 9.9 fL (7.6-11.3); RBC Red Blood Cell Count 4.45 M/uL (4.33-5.43)
[2022-01-25 05:11] LABS: Albumin 2.5 g/dL (3.4-5.0); Phosphorus 6.3 mg/dL (2.5-4.9); Potassium 4.5 mmol/L (3.5-5.1)
[2022-01-25] MEDS: LORazepam 2 MG/ML VIAL IV PRN ×3 (05:27→16:57)
--- NOTE | 2022-01-25 06:03 | P.PN ---
Date of Service: 01/25/22 Subjective: still ongoing with alcohol withdrawal febrile yesterday confused this morning ROS: unable to be obtained Physical exam GEN: cpnfused, agitated HEENT: Normal conjunctiva, sclera anicteric CV: Regular rate and rhythm, no edema Pulm: Nonlabored respirations, clear bilaterally ABD: Soft, nontender, nondistended Integumentary: No rashes Neuro: moves all extremities Problem List Acute hypoxemic respiratory failure with hypercapnia secondary to acute on chronic systolic CHF Anasarca Liver cirrhosis, alcoholic ABDIAZIZ on CKD 3 Chronic lymphedema Acute metabolic encephalopathy Alcohol dependence, with withdrawal Troponin elevated, likely secondary to demand ischemia Echocardiogram: EF: 20% Lasix per nephrology Cardiology evaluated patient, recommended LifeVest, diuresis ABG continues with CO2 retention, patient removes the BiPAP mask, continue as tolerated Patient having agitation secondary to alcohol withdrawal now Continue Ativan as needed Continue empiric antibiotics, for possible pneumonia. Febrile yesterday, discussed with pulmonology, continue Levaquin, fever may be secondary to withdrawal Dobbhoff ordered for today, start tube feeds Entresto is on hold due to soft blood pressures Continue Walls catheter for strict I's and O's Code: Full Dispo: Continue ICU level care, hospitalization > 2days Time Spent Managing Pts Care (In Minutes): 35
--- NOTE | 2022-01-25 07:35 | RAD REPORT ---
EXAM DESCRIPTION: RAD - Chest Single View - 01/25/2022 5:31 am CLINICAL HISTORY: SOB, f/u opacities/effusions COMPARISON: Chest Single View dated 01/23/2022; Chest Single View dated 01/21/2022; Chest Single View dated 01/21/2022; Chest Single View dated 01/21/2022 FINDINGS: Lines: Right subclavian approach PICC with tip overlying the right atrium. Lungs: Widespread pulmonary airspace disease. This is worsened since 01/23/2022. Pleural: Layering bilateral pleural effusions. Cardiac: Severe cardiomegaly. Bones: No acute fractures. Other: IMPRESSION: Worsening airspace disease concerning for a increasing pulmonary edema with bilateral ef fusions.
[2022-01-25] MEDS: LACTULOSE 20 GM/30 ML UCUP PO SCH (07:43)
[2022-01-25] MEDS: ALPRAZOLAM 1 MG TABLET PO PRN ×2 (07:44→18:22)
[2022-01-25] MEDS: BUSPIRONE HCL 5 MG TABLET PO SCH ×3 (07:44→20:01)
[2022-01-25] MEDS: APIXABAN 5 MG TABLET PO SCH ×2 (07:44→20:01)
[2022-01-25] MEDS ORDERED: FUROSEMIDE 40 MG TABLET PO SCH (09:00)
[2022-01-25] MEDS ORDERED: METOLAZONE 5 MG TABLET PO SCH (09:00)
--- NOTE | 2022-01-25 11:54 | P.CNS ---
Date of Consult: 01/25/22 Reason for Consult: Respiratory failure alcohol withdrawal Primary Care Provider: Rhianna Chief Complaint: Respiratory failure History of Present Illness: Patient is 56 years of age admitted with multiorgan failure alcohol withdrawal renal failure was asked to evaluate as his chest x-ray looks worse still experiencing withdrawal symptoms patient was on a Lasix dose has been changed to p.o. medication history of diabetes patient nonverbal at times agitated Allergies No Known Allergies Allergy (Verified 08/08/21 18:34) Home Medications: Albuterol Sulfate [Proair Respiclick] 2 puff IH Q6HR PRN 01/17/22 Amoxicillin/Potassium Clav [Amox-Clav 875-125 mg Tablet] 1 tab PO Q12H 01/17/22 Spironolactone 25 mg PO BID 01/17/22 Aspirin 81 mg PO DAILY 01/23/22 Dapagliflozin Propanediol [Farxiga] 5 mg PO DAILY 01/23/22 Fluticasone [Flovent Hfa 110*] 1 puff IH Q6HP PRN 01/23/22 Folic Acid 1 mg PO DAILY 01/23/22 Furosemide 80 mg PO BID 01/23/22 Lactulose 20 gm PO DAILY 01/23/22 Lisinopril [Zestril] 5 mg PO BEDTIME 01/23/22 Metoprolol Succinate [Toprol Xl] 12.5 mg PO DAILY 01/23/22 Sertraline [Zoloft] 100 mg PO DAILY 01/23/22 Trazodone HCl 100 mg PO BEDTIME 01/23/22 - Past Medical/Surgical History Diabetic: No -: cardiomegaly -: CHF -: COPD -: Bilateral leg lymphedema -: cellulitis -: hepatitis -: Cardiac catheterization -: right elbow - Family History Mother Medical History: Cancer, Other (see notes) Notes: epilepsy Father Medical History: Lung disease, Other (see notes) Notes: alcoholic - Social History Smoking Status: Current every day smoker Alcohol use: No CD- Drugs: Yes Caffeine use: No Place of Residence: Home Review of Systems is unable to be obtained Physical Examination Temp Pulse Resp BP Pulse Ox 98.1 F 107 H 11 L 119/71 95 01/25/22 08:00 01/25/22 09:00 01/25/22 09:00 01/25/22 09:00 01/25/22 09:00 General: Unresponsive Neck: Supple Respiratory: Crackles/rales, Expiratory wheezes Gastrointestinal: Normal bowel sounds, Soft and benign Musculoskeletal: No swelling Integumentary: No rashes, No significant lesion - Problems (1) Respiratory failure Current Visit: Yes Status: Acute Plan: Patient's x-ray has worsened he has bilateral changes now most likely pulmonary edema renal function is worse he has been diuresed White count is normal blood cultures negative patient is on steroids back on the Lasix drip DC steroids may be contributing to his agitation patient is not eating and drinking trial of Dobbhoff remittent tube feeds if tolerated IV thiamine and 5 L of nasal cannula oxygen blood pressure stable patient is on IV levofloxacin Qualifiers: Chronicity: acute
[2022-01-25] MEDS: FUROSEMIDE 100 MG in NA CHLORIDE 0.9% 90 ML IV SCH ×2 (12:15→19:48)
[2022-01-25] MEDS: ZIPRASIDONE MESYLA 20 MG/VIAL IM PRN ×2 (12:28→19:48)
[2022-01-25 12:34] LABS: Arterial Blood Carboxyhemoglob 1.3 % (0-1.5); Blood Gas Oxyhemoglobin 90.3 % (94-97); Blood O2 Saturation 92.4 % (92-98.5)
--- NOTE | 2022-01-25 12:49 | RAD REPORT ---
EXAM DESCRIPTION: RAD - Abdomen 1 View (KUB) - 01/25/2022 12:43 pm CLINICAL HISTORY: dobhoff placement COMPARISON: No comparisons FINDINGS: Dobhoff feeding tube has been placed. No abnormal bend or kink of the tubing. Metallic tip is in the left mid abdomen. This would correspond to body of the stomach.
[2022-01-25] MEDS: THIAMINE 200 MG/2 ML INJ IVP SCH ×2 (12:56→20:01)
[2022-01-25] MEDS: CEFEPIME 1 GM in NA CHLORIDE 0.9% 100 ML IV SCH ×2 (12:57→20:01)
[2022-01-25] MEDS ORDERED: VANCOMYCIN 1.5 GM in NA CHLORIDE 0.9% 500 ML IVPB SCH (13:00)
[2022-01-25] MEDS: NEPRO 1,000 ML BOT FT SCH (13:47)
[2022-01-25] MEDS: VANCOMYCIN 1.5 GM in NA CHLORIDE 0.9% 500 ML IVPB SCH (13:49)
--- NOTE | 2022-01-25 17:08 | PN ---
Date of Progress Note: 01/25/2022 Subjective: The patient still has significant shortness of breath. Yesterday because of alkalosis, the patient's Lasix was discontinued and was placed on Diamox. The patient had still good urine output, but declined significantly compared to day before. Physical Examination: Vital Signs: When I saw the patient; blood pressure 119/71, pulse of 107, afebrile. The patient had urine output in the last 24 hours of 6 L, negative of 4800. Chest: Crackles bilateral. Heart: S1, S2. Tachycardic. Abdomen: Soft, nontender. Extremity: Trace edema. Neuro: The patient has been given Geodon and Ativan. Moving 4 extremities. No focality. Laboratory Data: WBC 5.1, H and H 13.1/40.9, platelet of 61. Sodium 147, potassium 4.5, bicarb 36, BUN 83, creatinine 2.4, calcium 8.8, phosphorus 6.3, albumin 2.5. Corrected calcium is 10. ABG is still pending. Chest x-ray was done today showing worsening congestion compared to previous chest x-ray. Current Medications: The patient on include; 1. Levaquin 750 daily. 2. Eliquis 5 mg b.i.d. 3. Lasix 80 b.i.d. 4. Metolazone 5 mg. 5. Acetazolamide received yesterday. 6. Solu-Medrol. Assessment And Plan: 1. Acute kidney injury on chronic kidney disease, nonoliguric, over volume with respiratory distress. I am going to go ahead and put the patient back on the Lasix drip. We will accept the alkalosis for the time being in favor of establishing better volume control for the patient. The patient continued to deteriorate, especially with further increase in his BUN. The patient may need to initiate renal replacement therapy. We will discuss with the family. 2. Hypertension, currently blood pressure marginally on the lower side. We will utilize blood pressure for more diuresis. 3. Alkalosis secondary to hypercapnic respiratory failure with compensation and contraction alkalosis secondary to the diuresis. We will continue to monitor the patient for the time being. 4. Marginal hyperkalemia, resolved. We will continue diuresis. 5. Chronic obstructive pulmonary disease exacerbation as by primary. 6. Congestive heart failure with exacerbation. We will need to establish better volume control. We will continue fluid restriction. We will place the patient back on the Lasix drip to avoid hypotension and we will follow up. 7. Marginal hypernatremia secondary to poor intake. We will continue to monitor. 8. Altered mental status, hypercapnic respiratory failure with encephalopathy as by primary. Time spent examining the patient, [id number], discussing with the patient, reviewing data including radiology and laboratory, placing order, discussing the case with other steam generating powerplant mechanic including nursing and charge nurse, discussing the case with other subspecialists including hospitalist 35 minutes. KALEN/DAVID Voice ID: [id number] Report ID: [id number] ADÁN
[2022-01-25] MEDS: carvediloL 3.125 MG TAB PO SCH (17:11)
[2022-01-25] MEDS: ARFORMOTEROL TARTRATE 15 MCG/2 ML VIAL.NEB NEB SCH (19:15)
[2022-01-25] MEDS: WATER FOR INJ,STERILE 10 ML IM PRN (19:48)
[2022-01-25] MEDS: TRAZODONE 50 MG TABLET PO SCH (20:01)
[2022-01-25] MEDS ORDERED: SACUBITRIL/VALSARTAN 24/26 MG TAB PO SCH (21:00)
[2022-01-26] MEDS: LORazepam 2 MG/ML VIAL IV PRN ×5 (00:14→22:00)
[2022-01-26] MEDS: HYDROMORPHONE HCL 2 MG/ML inj IV PRN ×3 (00:26→21:17)
[2022-01-26] MEDS: ALPRAZOLAM 1 MG TABLET PO PRN ×2 (03:29→14:05)
[2022-01-26] MEDS: HYDROCODONE/APAP 7.5/325 MG TAB PO PRN (03:29)
[2022-01-26 05:39] LABS: Albumin 2.4 g/dL (3.4-5.0); Magnesium 2.7 mg/dL (1.8-2.4); Phosphorus 3.9 mg/dL (2.5-4.9); Potassium 4.1 mmol/L (3.5-5.1)
[2022-01-26] MEDS: carvediloL 3.125 MG TAB PO SCH ×2 (06:07→17:02)
--- NOTE | 2022-01-26 06:13 | P.PN ---
Date of Service: 01/26/22 Subjective: Dobbhoff placed yesterday, tube feeds started No acute events overnight Continues with agitation, requiring Ativan, ongoing alcohol withdrawal Borderline blood pressure ROS: unable to be obtained Physical exam GEN: confused, agitated HEENT: Normal conjunctiva, sclera anicteric CV: Regular rate and rhythm Pulm: on BIPAP, b/l crackles ABD: Soft, nontender, nondistended Integumentary: No rashes Neuro: moves all extremities Problem List Acute hypoxemic respiratory failure with hypercapnia secondary to acute on chronic systolic CHF Anasarca, pulmonary edema Hypernatremia Liver cirrhosis, alcoholic ABDIAZIZ on CKD 3 Chronic lymphedema Acute metabolic encephalopathy Alcohol dependence, with withdrawal Troponin elevated, likely secondary to demand ischemia Echocardiogram: EF: 20% Lasix drip per nephrology; hypernatremia Cardiology evaluated patient, recommended LifeVest, diuresis ABG continues with CO2 retention, patient removes the BiPAP mask, continue as tolerated Patient having agitation secondary to alcohol withdrawal Continue Ativan as needed Continue empiric antibiotics, for possible pneumonia. Febrile 01/24 discussed with pulmonology, continue Levaquin, fever may be secondary to withdrawal, remains afebrile Dobbhoff placed, tube feeds started on 01/25 Entresto is on hold due to soft blood pressures Continue Walls catheter for strict I's and O's Code: Full Dispo: Continue ICU level care, hospitalization > 2days Time Spent Managing Pts Care (In Minutes): 35
[2022-01-26 06:17] LABS: Arterial Blood Carboxyhemoglob 1.5 % (0-1.5); Blood Gas Oxyhemoglobin 94.7 % (94-97); Blood O2 Saturation 97.2 % (92-98.5)
[2022-01-26] MEDS: ZIPRASIDONE MESYLA 20 MG/VIAL IM PRN ×2 (07:22→15:55)
--- NOTE | 2022-01-26 07:33 | RAD REPORT ---
EXAM DESCRIPTION: RAD - Chest Single View - 01/26/2022 5:30 am CLINICAL HISTORY: Respiratory failure COMPARISON: Abdomen 1 View (KUB) dated 01/25/2022; Chest Single View dated 01/25/2022; Chest Single View dated 01/23/2022; Chest Single View dated 01/21/2022 FINDINGS: Lines: Weighted feeding tube below the diaphragm. PICC in similar positioning. Lungs: Similar widespread bilateral pulmonary opacities. Pleural: Bilateral layering pleural effusions . Cardiac: The heart size is within normal limits. Bones: No acute fractures. Other: IMPRESSION: No significant change in aeration of the lungs with widespread pulmonary opacities shruthi rning for edema.
[2022-01-26] MEDS: FUROSEMIDE 100 MG in NA CHLORIDE 0.9% 90 ML IV SCH ×2 (07:35→16:38)
[2022-01-26] MEDS: ARFORMOTEROL TARTRATE 15 MCG/2 ML VIAL.NEB NEB SCH ×2 (07:55→19:47)
[2022-01-26] MEDS ORDERED: METOLAZONE 5 MG TABLET PO SCH (08:00)
[2022-01-26] MEDS: CEFEPIME 1 GM in NA CHLORIDE 0.9% 100 ML IV SCH ×2 (08:53→20:20)
[2022-01-26] MEDS: THIAMINE 200 MG/2 ML INJ IVP SCH ×2 (08:53→20:19)
[2022-01-26] MEDS: LACTULOSE 20 GM/30 ML UCUP PO SCH (08:53)
[2022-01-26] MEDS: BUSPIRONE HCL 5 MG TABLET PO SCH ×3 (08:53→20:20)
[2022-01-26] MEDS: APIXABAN 5 MG TABLET PO SCH ×2 (08:53→20:20)
[2022-01-26] MEDS: NEPRO 1,000 ML BOT FT SCH (13:39)
[2022-01-26] MEDS: TRAZODONE 50 MG TABLET PO SCH (20:20)
--- NOTE | 2022-01-26 21:28 | PN ---
Date of Progress Note: 01/26/2022 Subjective: The patient was admitted with cardiorenal syndrome over volume and COPD exacerbation, patient's altered mental status. The patient had severe CHF. Physical Examination: Vital Signs: When I saw the patient; blood pressure 99/62, pulse of 83, afebrile. The patient had good urine output of 4800, negative of 3 L. Chest: Crackles bilateral. Heart: S1, S2. Systolic murmur. Abdomen: Soft and nontender. Extremities: Plus edema. Neurologic: The patient is sleepy, on BiPAP. Laboratory Data: H and H 13.1/40.9. Sodium 151, potassium 4.1, bicarb 44, BUN 85, creatinine 2.1, GFR of 32, glucose 308, calcium 8.9, phosphorus 3.9, magnesium 2.7, albumin 2.4, and corrected calcium is 10.1. Medications: Current medications the patient on are include Lasix drip, cefepime, vancomycin, carvedilol 3.125, and lactulose. Assessment And Plan: 1. Acute kidney injury secondary to cardiorenal/hepatorenal, still on the over volume side. I am going to continue diuresing the patient. Continue Lasix drip. We will accept the disproportion in the BUN and creatinine and favor of establishing better volume control. 2. Hypertension. We will keep utilizing blood pressure for more diuresis. 3. Hypernatremia secondary to diuresis. We will increase free water. 4. Chronic obstructive pulmonary disease exacerbation as by Pulmonary. 5. Disproportion BUN and creatinine secondary to catabolic state/cardiorenal. We will continue to monitor and continue diuresis. 6. Respiratory failure, multifactorial, secondary to chronic obstructive pulmonary disease exacerbation/congestive heart failure exacerbation. We will try to optimize the fluid status. Follow up with Pulmonary. 7. Altered mental status secondary to alcohol intoxication/withdrawal. We will follow up with the primary. Time spent examining the patient, [id number], discussing with the patient, reviewing data including radiology and laboratory, placing order, discussing the case with other instrument repairer steam plant including nursing and charge nurse, discussing the case with other subspecialists including hospitalist 35 minutes. JAMEL Voice ID: [id number] Report ID: [id number] ADÁN
[2022-01-27] MEDS: VANCOMYCIN 1.5 GM in NA CHLORIDE 0.9% 500 ML IVPB SCH (02:18)
[2022-01-27] MEDS: FUROSEMIDE 100 MG in NA CHLORIDE 0.9% 90 ML IV SCH (03:55)
[2022-01-27] MEDS: carvediloL 3.125 MG TAB PO SCH ×2 (06:00→18:00)
--- NOTE | 2022-01-27 06:03 | P.PN ---
Date of Service: 01/27/22 Subjective: ROS: unable to be obtained Physical exam GEN: confused, agitated HEENT: Normal conjunctiva, sclera anicteric CV: Regular rate and rhythm Pulm: on BIPAP, b/l crackles ABD: Soft, nontender, nondistended Integumentary: No rashes Neuro: moves all extremities Problem List Acute hypoxemic respiratory failure with hypercapnia secondary to acute on chronic systolic CHF Anasarca, pulmonary edema Hypernatremia Liver cirrhosis, alcoholic ABDIAZIZ on CKD 3 Chronic lymphedema Acute metabolic encephalopathy Alcohol dependence, with withdrawal Troponin elevated, likely secondary to demand ischemia Echocardiogram: EF: 20% Lasix drip per nephrology; hypernatremia Cardiology evaluated patient, recommended LifeVest, diuresis ABG continues with CO2 retention, patient removes the BiPAP mask, continue as tolerated Patient having agitation secondary to alcohol withdrawal Continue Ativan as needed Continue empiric antibiotics, for possible pneumonia. Febrile 01/24 discussed with pulmonology, continue Levaquin, fever may be secondary to withdrawal, remains afebrile Dobbhoff placed, tube feeds started on 01/25 Entresto is on hold due to soft blood pressures Continue Walls catheter for strict I's and O's Code: Full Dispo: Continue ICU level care, hospitalization > 2days Time Spent Managing Pts Care (In Minutes): 35
[2022-01-27] MEDS: LORazepam 2 MG/ML VIAL IV PRN ×2 (06:18→10:14)
[2022-01-27 07:17] LABS: Absolute Lymphocytes (CBC) 0.7 K/uL (0.7-4.9); Hematocrit 48.2 % (39.6-49.0); Lymphocytes % 8.6 % (15.3-44.8); MPV 10.8 fL (7.6-11.3); RBC Red Blood Cell Count 5.16 M/uL (4.33-5.43)
[2022-01-27 07:36] LABS: Albumin 2.3 g/dL (3.4-5.0); Magnesium 2.5 mg/dL (1.8-2.4); Phosphorus 2.4 mg/dL (2.5-4.9); Potassium 3.5 mmol/L (3.5-5.1)
[2022-01-27] MEDS: ARFORMOTEROL TARTRATE 15 MCG/2 ML VIAL.NEB NEB SCH ×2 (07:40→19:23)
[2022-01-27] MEDS: LEVALBUTEROL 0.63 MG/3 ML NEB NEB PRN ×2 (07:40→14:40)
[2022-01-27] MEDS: ZIPRASIDONE MESYLA 20 MG/VIAL IM PRN (07:49)
--- NOTE | 2022-01-27 07:49 | P.PN ---
Subjective Date of Service: 01/27/22 Primary Care Provider: Rhianna Chief Complaint: Respiratory failure No change patient is on BiPAP continues to remain very agitated and delirious Review of Systems is unable to be obtained Physical Examination - Vital Signs Temperature: 97.2 F Blood Pressure: 120/60 Pulse: 86 Respirations: 16 Pulse Ox (%): 95 - Physical Exam General: Unresponsive, Other (Agitated) Neck: Supple Respiratory: Clear to auscultation bilaterally, Diminished Cardiovascular: Edema Assessment And Plan - Current Problems (Diagnosis) (1) Respiratory failure Current Visit: Yes Status: Acute Plan: Respiratory failure patient is on BiPAP 35% FiO2 patient's chest x-ray has improved significantly and change him over to high flow nasal cannula bicarbonate and sodium have become very elevated will discuss with nephrology white count normal no evidence of sepsis can DC broad-spectrum antibiotics hold Lasix for now probably need to have fluid replaced start patient on Precedex drip discussed with nephrology as he keeps on pulling out his NG tube start on D5 water Qualifiers: Chronicity: acute Physician Review: Patient Assessed, Agree with Above Assessment and Plan
[2022-01-27] MEDS: D5W 1,000 ML IV SCH (08:00)
[2022-01-27] MEDS ORDERED: DEXMEDETOMIDINE HCL 200 MCG in NA CHLORIDE 0.9% 98 ML IV SCH (08:00)
[2022-01-27 08:36] LABS: Platelet Estimate DECR; White Blood Cell Scan OK (OK)
[2022-01-27 08:37] LABS: Blood Morphology Comment NOT SEEN (NOT SEEN)
[2022-01-27] MEDS: LACTULOSE 20 GM/30 ML UCUP PO SCH (09:29)
[2022-01-27] MEDS: APIXABAN 5 MG TABLET PO SCH ×2 (09:29→20:48)
[2022-01-27] MEDS: CEFEPIME 1 GM in NA CHLORIDE 0.9% 100 ML IV SCH (09:29)
[2022-01-27] MEDS: THIAMINE 200 MG/2 ML INJ IVP SCH ×2 (09:29→20:49)
[2022-01-27] MEDS: BUSPIRONE HCL 5 MG TABLET PO SCH ×3 (09:29→20:48)
[2022-01-27] MEDS ORDERED: DEXMEDETOMIDINE HCL 400 MCG in NA CHLORIDE 0.9% 196 ML IV SCH (11:00)
--- NOTE | 2022-01-27 11:54 | P.PN ---
Subjective Date of Service: 01/27/22 Primary Care Provider: Rhianna Chief Complaint: Respiratory failure Subjective: New changes (delirium) Review of Systems is unable to be obtained Physical Examination - Vital Signs Temperature: 98.4 F Blood Pressure: 125/68 Pulse: 89 Respirations: 27 Pulse Ox (%): 95 - Physical Exam General: Delirious HEENT: Atraumatic, PERRLA, EOMI Neck: Supple, JVD not distended Respiratory: Clear to auscultation bilaterally, Normal air movement Cardiovascular: Regular rate/rhythm, Normal S1 S2 Gastrointestinal: Normal bowel sounds, No tenderness Musculoskeletal: No tenderness Integumentary: No rashes Neurological: Normal speech, Normal tone, Normal affect Lymphatics: No axilla or inguinal lymphadenopathy Assessment And Plan - Current Problems (Diagnosis) (1) Delirium Current Visit: Yes Status: Acute Plan: Patient has a history of alcoholism and drug abuse. Nurse reported that he has been drinking recently. Ammonia level was last reported as normal. Will recheck. Continue lactulose. Will consult Dr. Burns. Order an EEG, MRI Thiamine and folate. (2) Acute on chronic systolic heart failure Current Visit: No Status: Acute Plan: will give intermittent furosemide. While monitoring the kidney function Consult to Dr. Quijano. the last ef was 20% in2018 Will also monitor his troponins 3/ patient has some opacities. tolerating off bipap. Diuresis is under weigh with nephrology. (3) COPD (chronic obstructive pulmonary disease) Current Visit: No Status: Chronic Plan: patient is not wheezing. Will continue breathing treatments. The patient is otherwise doing well. 01/21 Will start him on a low dose of steroids and breathing treatment Qualifiers: COPD type: COPD with acute lower respiratory infection Qualified Code(s): J44.0 - Chronic obstructive pulmonary disease with (acute) lower respiratory infection (4) Elevated troponin Current Visit: No Status: Acute Plan: will do serial troponins Consult to Dr. Quijano (5) Acute kidney injury Current Visit: No Status: Acute Plan: baseline creatine is approx 0.85. May be due to fluid overload. Will acess lasix daily if no improvement will consult Nephrololgy 3/3 creatine is stable. will continue monitoring. the patient Discharge Plan: Home - Code Status/Comfort Care Code Status Assessed: No Physician Review: Patient Assessed, Agree with Above Assessment and Plan Critical Care: Yes Time Spent Managing PTS Care (In Minutes): 30
[2022-01-27] MEDS ORDERED: GLUCAGON 1 MG/VIAL IM PRN (12:03)
[2022-01-27] MEDS ORDERED: D50W 25 GM/50 ML SYRINGE IV PRN (12:03)
[2022-01-27] MEDS: INSULIN -REGULAR HUMAN 50 UNIT/0.5 ML ML SQ SCH ×3 (12:34→21:00)
[2022-01-27] MEDS ORDERED: D10W 125 ML IV PRN (12:36)
--- NOTE | 2022-01-27 13:50 | RAD REPORT ---
EXAM DESCRIPTION: Respiratory failure COMPARISON: 01/21/2022. TECHNIQUE: XR CHEST 1 VIEW 01/27/2022 6:00 AM COP BREAKER FINDINGS: The heart is enlarged. There is mild bibasilar airspace disease. There are bilateral pleur al effusions. There is no pneumothorax. There are no acute osseous findings. Feeding tube tip is belo w the diaphragm. Right PICC line tip is at the cavoatrial junction. IMPRESSION: Improved aeration of the lungs. Electronically signed by: Cyrus López MD 01/27/2022 6:46 AM COP BREAKER Due to temporary technical issues with the PACS/Fluency reporting system, reports are being signed by the in house radiologists without review as a courtesy to insure prompt reporting. The interpreting radiologist is fully responsible for the content of the report.
[2022-01-27] MEDS ORDERED: INSULIN -REGULAR HUMAN 50 UNIT/0.5 ML ML SQ SCH (16:30)
--- NOTE | 2022-01-27 16:57 | PN ---
Date of Progress Note: 01/27/2022 Subjective: The patient was admitted with cardiorenal syndrome, over volume, respiratory failure with alcohol withdrawal, altered mental status. The patient had been on Lasix drip since admission, started having good response with negative balance, but mental status not recovering. Physical Examination: Vital Signs: Blood pressure 125/68, pulse of 89, afebrile. The patient had good urine output of 4800, negative of 3 L. Chest: Faint rales on the left base. Heart: S1, S2. Systolic murmur. Abdomen: Soft, nontender. Extremities: No edema. A dressing on the left leg below-knee amputation. Neuro: The patient agitated, not oriented. No focality. Laboratory Data: WBC 8.5, H and H 15.4/48.2, platelet of 56. Sodium 156, potassium 3.5, bicarb 43, BUN 85, creatinine 2.1, calcium 9.1, phosphorus 2.4, magnesium 2.5, albumin 2.3, corrected calcium is 10.3. Current Medications: The patient on cefepime, vancomycin, Eliquis, carvedilol, Lasix drip, thiamine. Assessment And Plan: 1. Acute kidney injury secondary to cardiorenal, started being close to normal volume with the presence of hypernatremia. I am going to hold Lasix drip and we will monitor the patient. 2. We will consider adding hydrochlorothiazide if needed. 3. Hypernatremia secondary to depletional poor intake. I am going to start the patient on a free water 150 q.4. We will start D5 75 per hour and we will hold the Lasix drip. We will follow up by tomorrow. 4. Hypercalcemia, resolved. 5. Congestive heart failure with exacerbation, currently started being close to normal volume. Discontinue Lasix drip. We will follow up. 6. Hypertension, controlled, optimal, hold Lasix. 7. Chronic obstructive pulmonary disease, as by primary. 8. Disproportion BUN and creatinine secondary to cardiorenal. Steroid has been discontinued. We will hold the Lasix drip. 9. Alcohol withdrawal. Continue supportive care. Follow up with the primary. Time spent examining the patient, [id number], discussing with the patient, reviewing data including radiology and laboratory, placing order, discussing the case with other steam shovel oiler including nursing and charge nurse, discussing the case with other subspecialists including hospitalist 35 minutes. JAMEL Voice ID: [id number] Report ID: [id number] MTDKristian
[2022-01-27] MEDS ORDERED: DEXMEDETOMIDINE HCL 1,000 MCG in NA CHLORIDE 0.9% 490 ML IV SCH (18:00)
[2022-01-27] MEDS: TRAZODONE 50 MG TABLET PO SCH (20:48)
[2022-01-27] MEDS ORDERED: chlordiazePOXIDE HCl 25 MG CAP PO SCH (21:00)
--- NOTE | 2022-01-28 | CON ---
Reason For Consultation: Consultation called because the patient is failing to thrive and not seemin g to return to a baseline level of functioning. History Of Present Illness: Mr. Dhaliwal is a 56-year-old patient with history of heavy alcohol abuse, cirrhosis of the liver, severe chronic congestive heart failure with systolic dysfunction, who was a dmitted to [facility] on the 17 of January with CHF exacerbation. The patient has been i n ICU for an extended period of time. He has significantly agitated, will move arms and legs and thr qiana about with elevated heart rate and respiratory rate and is not responding to verbal stimulation w ith any meaningful or directed responses. His workup includes chest imaging showing enlarged heart a nd bilateral pleural effusions, which noted from chest x-ray on today has improved aeration of the cesilia ngs. He has not been able to get a head CT scan, even with sedation because of his difficulty mainta ining a stable posture. Also EEG could not be done because of the patient's severe agitation. His l aboratory studies today showed a white blood cell count being normal. Hemoglobin and hematocrit unre markable. Coagulation panel is essentially unremarkable. Arterial blood gas yesterday shows elevate d pCO2 of 79.8, pO2 of 97.9. His chemistries showed elevated carbon dioxide level of 44. Hypernatre yadira with sodium 136. Creatinine 2.17, glucose of 192, magnesium elevated at 2.5. Procalcitonin was slightly elevated at 0.27. He has a vancomycin trough level of 9.5. COVID-19 test is negative. Past Medical History: As noted. Allergies: NO KNOWN DRUG ALLERGIES. Current Medications: Xanax 1 mg 3 times daily as needed, Eliquis 5 mg twice daily, Brovana 15 mcg ne bulizer twice daily, BuSpar 10 mg 3 times a day, Coreg 3.125 mg twice daily. He is now on Librium 50 mg twice daily for alcohol withdrawal prophylaxis and treatments in addition to folic acid daily and thiamine 100 mg daily. He has had Geodon for his agitation with trazodone and Ativan. Review of Systems: Not possible at this time. Family History: Noncontributory. Physical Examination: Vital Signs: Blood pressure is now 98/61, respiratory rate of 25, pulse 88 with a high of 106 pulse recently, temperature is 101.2. General: MR. Dhaliwal is resting in ICU. He actually did move the leg spontaneously and arms, but did not follow any commands to open his eyes or close his eyes or voluntarily move the arms and legs to command. Skin: He does have significant lichenification of his lower extremities up to the knees bilaterally. Lungs: He does have good air movement. Abdomen: Soft. Neurologic: Cranial nerves do not show any obvious deficits only, but cannot be fully assessed as the patient is not cooperative. He does have some visual threat response, but no focal cranial nerve de ficits noted. On motor examination, he appears to be moving the left and right upper and lower extre mities equally, with minimal response when stimulated. I did not assess coordination and gait. He h as hyporeflexia throughout. Assessment: Mr. Dhalwial is a 56-year-old patient with possible Wernicke encephalopathy. He also poss ibly has systemic infection with elevated temperature of 101.2, procalcitonin is elevated, perhaps he may be developing aspiration pneumonia. He may also be developing early sepsis. Unable to get an E EG or head CT scan. The patient may also have ongoing epileptiform activity, which should be ruled o ut with EEG when possible. Plan: 1.Continue treatment for alcohol withdrawal prophylaxis and delirium tremens. 2.The patient may have EEG and head CT scan at least when possible. 3.Continue with aggressive management of infection. He is on antibiotics per Primary Team. 4.Continue with thiamine 100 mg daily. 5.Continue folic acid 1 mg daily. 6.Librium 50 mg twice daily. ABIEL/MODL Voice ID: [id number] Report ID: [id number]
[2022-01-28] MEDS: INSULIN -REGULAR HUMAN 50 UNIT/0.5 ML ML SQ SCH ×5 (00:32→23:42)
[2022-01-28] MEDS: D5W 1,000 ML IV SCH ×3 (00:35→22:08)
[2022-01-28] MEDS: LEVALBUTEROL 0.63 MG/3 ML NEB NEB PRN ×2 (01:09→20:05)
[2022-01-28] MEDS ORDERED: NA CHLORIDE 0.9% 500 ML ONE (04:08)
[2022-01-28] MEDS ORDERED: NA CHLORIDE 0.9% 250 ML IV PRN ×2 (04:23→08:30)
[2022-01-28] MEDS: carvediloL 3.125 MG TAB PO SCH (05:11)
--- NOTE | 2022-01-28 07:29 | RAD REPORT ---
EXAM DESCRIPTION: RAD - Chest Single View - 01/28/2022 5:46 am CLINICAL HISTORY: Respiratory failure COMPARISON: Chest Single View dated 01/27/2022; Chest Single View dated 01/26/2022; Abdomen 1 View (KUB) dated 01/25/2022; Chest Single View dated 01/25/2022 FINDINGS: Right lung collapse with mediastinal shift. Patchy airspace disease in the left lung. Feed ing tube below the diaphragm. Cardiomegaly. IMPRESSION: Collapse of the right lung may be secondary to mucous plugging. Scattered left lung opac ities are similar.
[2022-01-28] MEDS: NOREPINEPHRINE 4 MG in D5W 250 ML IV SCH (07:49)
[2022-01-28] MEDS: ARFORMOTEROL TARTRATE 15 MCG/2 ML VIAL.NEB NEB SCH (08:00)
[2022-01-28] MEDS ORDERED: RSI MEDICATION KIT IV ONE (08:32)
[2022-01-28] MEDS ORDERED: propofoL 1,000 MG/100 ML VIAL IV ONE (08:33)
[2022-01-28] MEDS ORDERED: THIAMINE 200 MG/2 ML INJ IVP SCH (09:00)
[2022-01-28] MEDS: APIXABAN 5 MG TABLET PO SCH ×2 (09:00→20:23)
[2022-01-28] MEDS ORDERED: FOLIC ACID 5 MG/ML VIAL IVP SCH (09:00)
[2022-01-28] MEDS ORDERED: GLYCOPYRROLATE 0.2 MG/ML SYR ONE (09:31)
--- NOTE | 2022-01-28 09:51 | RAD REPORT ---
EXAM DESCRIPTION: RAD - Chest Single View - 01/28/2022 9:44 am CLINICAL HISTORY: ETT PLACEMENT COMPARISON: Chest Single View dated 01/28/2022; Chest Single View dated 01/27/2022; Chest Single View da supriya 01/26/2022; Abdomen 1 View (KUB) dated 01/25/2022 FINDINGS: Interval intubation with endotracheal tube at the aortic arch in satisfactory position. Th e right upper lobe has partially re-expanded. The remaining lung remains opacified, likely from atele ctasis. Mediastinal shift is again noted to the right. Mild opacities at the left lung base with smal l effusion. Cardiomegaly. PICC in similar positioning. Feeding tube in similar positioning. IMPRESSION: Interval intubation with partial re-expansion of the right upper lobe. Most of the right lung remains collapsed, however. ET tube in satisfactory position.
[2022-01-28] MEDS: FAMOTIDINE 20 MG/2 ML VIAL IV SCH ×2 (09:55→20:25)
[2022-01-28] MEDS: FOLIC ACID 1 MG in NA CHLORIDE 0.9% 50 ML IV SCH (09:55)
[2022-01-28] MEDS: LACTULOSE 20 GM/30 ML UCUP PO SCH (10:07)
[2022-01-28] MEDS: THIAMINE 200 MG/2 ML INJ IVP SCH ×2 (10:11→20:23)
--- NOTE | 2022-01-28 10:30 | P.PN ---
Subjective Date of Service: 01/28/22 Primary Care Provider: Rhianna Chief Complaint: Respiratory failure Patient's condition worsened developed complete opacification of the right hemithorax with tracheal deviation to the right suggesting of atelectasis may have also aspirated patient was then intubated is currently more stable and to wean off the vasopressors so is hyponatremic Review of Systems is unable to be obtained Physical Examination - Vital Signs Temperature: 97.1 F Blood Pressure: 63/46 Pulse: 85 Respirations: 20 Pulse Ox (%): 93 - Physical Exam General: Unresponsive Respiratory: Diminished (Diminished air entry on the right side) Cardiovascular: Regular rate/rhythm, Edema Assessment And Plan - Current Problems (Diagnosis) (1) Respiratory failure Current Visit: Yes Status: Acute Plan: New onset of worsening respiratory failure patient intubated has complete op acification of the right lung with tracheal deviation to the right most likely atelectasis from aspiration is more stable on a ventilator sputum for culture increase PEEP wean off Levophed continue with D5 water patient is hyponatremic sputum cultures pending start patient on meropenem resume tube feeds LTAC Qualifiers: Chronicity: acute Physician Review: Patient Assessed, Agree with Above Assessment and Plan
[2022-01-28 11:16] LABS: Arterial Blood Carboxyhemoglob 1.3 % (0-1.5); Blood Gas Oxyhemoglobin 90.4 % (94-97); Blood O2 Saturation 92.6 % (92-98.5)
[2022-01-28] MEDS ORDERED: ROCURONIUM 50 MG/5 ML VIAL IV ONE (11:18)
[2022-01-28] MEDS ORDERED: SUCCINYLCHOLINE 20 MG/ML (10 ML) IV ONE (11:18)
[2022-01-28] MEDS: LORazepam 2 MG/ML VIAL IV PRN ×3 (11:24→22:45)
[2022-01-28] MEDS: Meropenem 1,000 MG in NA CHLORIDE 0.9% 100 ML IV SCH ×2 (11:24→20:24)
--- NOTE | 2022-01-28 11:40 | P.PN ---
Subjective Date of Service: 01/28/22 Primary Care Provider: Rhianna Chief Complaint: Respiratory failure Subjective: Worsening (intubated hypotensive) Review of Systems is unable to be obtained Physical Examination - Vital Signs Temperature: 97.1 F Blood Pressure: 111/66 Pulse: 76 Respirations: 23 Pulse Ox (%): 100 - Physical Exam General: Alert, In no apparent distress HEENT: Atraumatic, PERRLA, EOMI Neck: Supple, JVD not distended Respiratory: Clear to auscultation bilaterally, Normal air movement Cardiovascular: Regular rate/rhythm, Normal S1 S2 Gastrointestinal: Normal bowel sounds, No tenderness Musculoskeletal: No tenderness Integumentary: No rashes Neurological: Normal speech, Normal tone, Normal affect Lymphatics: No axilla or inguinal lymphadenopathy Assessment And Plan - Current Problems (Diagnosis) (1) Delirium Current Visit: Yes Status: Acute Plan: Patient has a history of alcoholism and drug abuse. Nurse reported that he has been drinking recently. Ammonia level was last reported as normal. Will recheck. Continue lactulose. Will consult Dr. Burns. Order an EEG, MRI Thiamine and folate. (2) Acute on chronic systolic heart failure Current Visit: No Status: Acute Plan: will give intermittent furosemide. While monitoring the kidney function Consult to Dr. Quijano. the last ef was 20% in2018 Will also monitor his troponins 01/28. He has been taken off lasix. Has been diurised over 30lbs since admission. Which would be approx 13-14 lts of fluid. This may have caused his hemithorax (3) COPD (chronic obstructive pulmonary disease) Current Visit: No Status: Chronic Plan: patient is not wheezing. Will continue breathing treatments. The patient is otherwise doing well. 01/21 Will start him on a low dose of steroids and breathing treatment Qualifiers: COPD type: COPD with acute lower respiratory infection Qualified Code(s): J44.0 - Chronic obstructive pulmonary disease with (acute) lower respiratory infection (4) Elevated troponin Current Visit: No Status: Acute Plan: will do serial troponins Consult to Dr. Quijano (5) Acute kidney injury Current Visit: No Status: Acute Plan: baseline creatine is approx 0.85. May be due to fluid overload. Will acess lasix daily if no improvement will consult Nephrololgy 01/27 creatine is stable. will continue monitoring. the patient (6) Respiratory failure Current Visit: Yes Status: Acute Plan: hemitorax. He is intubated on levophed. Was started on meropenem. Has a right hemithorax. Disussed the patient with Dr. Villavicencio. Qualifiers: Chronicity: acute Discharge Plan: Home Plan to discharge in: 24 Hours - Code Status/Comfort Care Code Status Assessed: No Physician Review: Patient Assessed, Agree with Above Assessment and Plan Critical Care: Yes Time Spent Managing PTS Care (In Minutes): 45
--- NOTE | 2022-01-28 11:59 | P.PN ---
Subjective Date of Service: 01/28/22 Primary Care Provider: Rhianna Chief Complaint: Respiratory failure Today Pt admitted with CHF exacerbation and alcohol withdrawal , Cr 1.5>2.4>2.1, Sodium tending, Pt intubated today Sodium 156, Cr 2.1 Started on D5W will increase free water via NG to 250ml Q4hrs Physical exam General: intubated , sedated CHEST; CTAB, no wheezes or rales HEART : RRR. Normal S1,2 no murmur or rub Abd: soft, Nt Ext: no edema Skin : No rash Assessment And Plan: ABDIAZIZ possibly due to ATN and dehydration COnt IVF I/o avoid NSAID and contrast renal dose meds Hypernatremia due to free water deficit Started on D5W will increase free water via NG to 250ml Q4hrs ACute respiratory failure Intubated CHF Dry to euvolemic now hold lasix Physical Examination - Vital Signs Temperature: 97.1 F Blood Pressure: 111/66 Pulse: 76 Respirations: 23 Pulse Ox (%): 100 Assessment And Plan Physician Review: Patient Assessed, Agree with Above Assessment and Plan
[2022-01-28] MEDS: HALOPERIDOL LACT 5 MG/ML INJ IV PRN ×2 (13:27→22:07)
--- NOTE | 2022-01-28 14:57 | EEG ---
CHART: [id number] TEST ID#: [id number] DATE OF STUDY: 01/27/2022 THE EEG WAS RECORDED PORTABLE IN THE ICU ON A 17 CHANNEL MACHINE. ELECTRODES WERE APPLIED IN THE USUAL MANNER USING THE INTERNATIONAL 10-20 SYSTEM. THE WAKING BACKGROUND RHYTHM IN THIS RECORD CONSISTS OF POORLY DEVELOPED AND POORLY ORGANIZED WAVES OF 4-6 HZ., IN A WIDE DISTRIBUTION WHICH DO NOT ATTENUATE NORMALLY WITH EYE OPENING. MODERATE VOLTAGE 1.5-3 HZ ACTIVITY IS EXPRESSED IN THE FROTNAL, CENTRAL AND TEMPORAL REGIONS. THERE ARE NO FOCAL OR LATERALIZING FEATURES. NO EPILEPTIFORM ACTIVITY APPEARS. SLEEP DID NOT OCCUR. HYPERVENTILATION WAS NOT PERFORMED. PHOTIC STIMULATION WAS NOT PERFORMED. IMPRESSION: THIS IS A MODERATELY ABNORMAL ROUTINE EEG DUE TO THE PRESENCE OF A MODERATELY SLOW BACKGROUND. THIS IS A NON-SPECIFIC FINDING INDICATING THE PRESENCE OF A DIFFUSE DISTURBANCE IN A CEREBRAL FUNCTION.
[2022-01-28] MEDS: ACETAMINOPHEN 325 MG TABLET PO PRN (16:24)
[2022-01-28] MEDS: TRAZODONE 50 MG TABLET PO SCH (20:24)
[2022-01-28] MEDS: FENTANYL CITR 100 MCG/2 ML IV PRN (21:39)
[2022-01-29] MEDS: LEVALBUTEROL 0.63 MG/3 ML NEB NEB PRN (01:36)
[2022-01-29] MEDS: D5W 1,000 ML IV SCH ×4 (04:24→23:00)
[2022-01-29] MEDS: LORazepam 2 MG/ML VIAL IV PRN (04:27)
[2022-01-29] MEDS: FENTANYL CITR 100 MCG/2 ML IV PRN (04:45)
[2022-01-29] MEDS: NEPRO 1,000 ML BOT FT SCH (05:00)
[2022-01-29] MEDS: INSULIN -REGULAR HUMAN 50 UNIT/0.5 ML ML SQ SCH ×3 (05:36→18:00)
[2022-01-29 05:37] LABS: Absolute Lymphocytes (CBC) 1.9 K/uL (0.7-4.9); Hematocrit 48.4 % (39.6-49.0); Lymphocytes % 19.3 % (15.3-44.8); MPV 11.2 fL (7.6-11.3); RBC Red Blood Cell Count 5.16 M/uL (4.33-5.43)
[2022-01-29] MEDS: HALOPERIDOL LACT 5 MG/ML INJ IV PRN ×3 (05:37→22:18)
[2022-01-29 05:54] LABS: Albumin 2.2 g/dL (3.4-5.0); Bilirubin Total 2.2 mg/dL (0.2-1.0)
--- NOTE | 2022-01-29 07:52 | RAD REPORT ---
EXAM DESCRIPTION: RAD - Chest Single View - 01/29/2022 6:54 am CLINICAL HISTORY: Respiratory failure COMPARISON: Chest Single View dated 01/28/2022; Chest Single View dated 01/28/2022; Chest Single View da supriya 01/27/2022; Chest Single View dated 01/26/2022 FINDINGS: Lines: Endotracheal tube at the aortic arch. Feeding tube in the distal esophagus versus p roximal stomach. PICC tip probably in the low right atrium. Lungs: Re- expanded right lung. Bilateral airspace disease, right greater than left. Pleural: Possible small effusions. Cardiac: Cardiomegaly . Bones: No acute fractures. Other: IMPRESSION: 1. Re- expanded right lung. Residual airspace disease may reflect atelectasis and/or pne umonia. 2. Feeding tube tip may be in the distal esophagus versus proximal stomach. Consider advancing by 10 cm. The right subclavian approach PICC overlies the low right atrium. ET tube satisfactory.
[2022-01-29] MEDS ORDERED: POTASSIUM 25 MEQ EFFERV TAB PO ONE (08:00)
[2022-01-29] MEDS ORDERED: NA CHLORIDE 0.9% 2,000 ML ONE (08:25)
[2022-01-29] MEDS ORDERED: ADENOSINE 6 MG/ 2ML VIAL IV ONE (08:29)
[2022-01-29] MEDS ORDERED: AMIODARONE HCL 150 MG in D5W 100 ML IV STA (08:30)
[2022-01-29 08:37] LABS: Blood Morphology Comment NOT SEEN (NOT SEEN); Platelet Estimate DECR
[2022-01-29] MEDS: AMIODARONE HCL 900 MG in Dextrose 5%-Water 482 ML IV SCH (08:43)
--- NOTE | 2022-01-29 09:25 | P.PN ---
Subjective Date of Service: 01/29/22 Primary Care Provider: Rhianna Chief Complaint: Respiratory failure, shock rapid A. fib Patient's condition deteriorated this morning when I walked him he is very tachycardic rapid A. fib had to be cardioverted due to hypotension Review of Systems is unable to be obtained Physical Examination - Vital Signs Temperature: 97.5 F Blood Pressure: 147/89 Pulse: 105 Respirations: 29 Pulse Ox (%): 93 - Physical Exam General: Unresponsive Respiratory: Clear to auscultation bilaterally, Diminished Cardiovascular: Edema Gastrointestinal: Normal bowel sounds, Soft and benign Assessment And Plan - Current Problems (Diagnosis) (1) Respiratory failure Current Visit: Yes Status: Acute Plan: Respiratory failure patient developed rapid atrial fibrillation s/p cardioversion started on amiodarone drip hyponatremia renal function improving chest x-ray shows resolution of atelectasis significant amount of material was aspirated from his respiratory tract patient is thrombocytopenic been a progressive decline in his platelet count cultures are pending patient is still on Levophed patient has severe global hypokinesis on echocardiogram prognosis poor Qualifiers: Chronicity: acute Physician Review: Patient Assessed, Agree with Above Assessment and Plan
[2022-01-29] MEDS: APIXABAN 5 MG TABLET PO SCH ×2 (09:32→20:17)
[2022-01-29] MEDS: FOLIC ACID 1 MG in NA CHLORIDE 0.9% 50 ML IV SCH (09:32)
[2022-01-29] MEDS: Meropenem 1,000 MG in NA CHLORIDE 0.9% 100 ML IV SCH ×2 (09:32→20:17)
[2022-01-29] MEDS: LACTULOSE 20 GM/30 ML UCUP PO SCH (09:32)
[2022-01-29] MEDS: THIAMINE 200 MG/2 ML INJ IVP SCH ×2 (09:32→20:18)
[2022-01-29] MEDS: FAMOTIDINE 20 MG/2 ML VIAL IV SCH ×2 (09:32→20:18)
[2022-01-29] MEDS: INSULIN GLARGINE 100 UNIT/ML SQ SCH (09:34)
[2022-01-29] MEDS: NOREPINEPHRINE 4 MG in D5W 250 ML IV SCH (10:27)
--- NOTE | 2022-01-29 11:18 | P.PN ---
Subjective Date of Service: 01/29/22 Primary Care Provider: Rhianna Chief Complaint: Respiratory failure, shock rapid A. fib Subjective: Worsening Review of Systems is unable to be obtained Physical Examination - Vital Signs Temperature: 97.5 F Blood Pressure: 90/51 Pulse: 66 Respirations: 15 Pulse Ox (%): 97 - Physical Exam General: In no apparent distress HEENT: Atraumatic, PERRLA, EOMI Neck: Supple, JVD not distended Respiratory: Clear to auscultation bilaterally, Normal air movement Cardiovascular: Regular rate/rhythm, Normal S1 S2 Gastrointestinal: Normal bowel sounds, No tenderness Musculoskeletal: No tenderness Integumentary: No rashes Neurological: Normal speech, Normal tone, Normal affect Lymphatics: No axilla or inguinal lymphadenopathy Assessment And Plan - Current Problems (Diagnosis) (1) Shock Current Visit: Yes Status: Acute Plan: patient on levophed, and amiodarone. Need cardioversion this morning. Poor prognosis (2) Acute on chronic systolic heart failure Current Visit: No Status: Acute Plan: will give intermittent furosemide. While monitoring the kidney function Consult to Dr. Quijano. the last ef was 20% in2018 Will also monitor his troponins 01/28. He has been taken off lasix. Has been diurised over 30lbs since admission. Which would be approx 13-14 lts of fluid. This may have caused his hemithorax (3) COPD (chronic obstructive pulmonary disease) Current Visit: No Status: Chronic Plan: patient is not wheezing. Will continue breathing treatments. The patient is otherwise doing well. 01/21 Will start him on a low dose of steroids and breathing treatment Qualifiers: COPD type: COPD with acute lower respiratory infection Qualified Code(s): J44.0 - Chronic obstructive pulmonary disease with (acute) lower respiratory infection (4) Elevated troponin Current Visit: No Status: Acute Plan: will do serial troponins Consult to Dr. Quijano (5) Acute kidney injury Current Visit: No Status: Acute Plan: baseline creatine is approx 0.85. May be due to fluid overload. Will acess lasix daily if no improvement will consult Nephrololgy 3/ creatine is stable. will continue monitoring. the patient (6) Respiratory failure Current Visit: Yes Status: Acute Plan: hemitorax. He is intubated on levophed. Was started on meropenem. Has a right hemithorax. Disussed the patient with Dr. Villavicencio. Qualifiers: Chronicity: acute (7) Delirium Current Visit: Yes Status: Resolved Plan: Patient has a history of alcoholism and drug abuse. Nurse reported that he has been drinking recently. Ammonia level was last reported as normal. Will recheck. Continue lactulose. Will consult Dr. Burns. Order an EEG, MRI Thiamine and folate. Discharge Plan: Home Plan to discharge in: 24 Hours - Code Status/Comfort Care Code Status Assessed: No Code Status: Full Code Physician Review: Patient Assessed, Agree with Above Assessment and Plan Critical Care: Yes Time Spent Managing PTS Care (In Minutes): 30
--- NOTE | 2022-01-29 13:09 | P.PN ---
Subjective Date of Service: 01/29/22 Primary Care Provider: Rhianna Chief Complaint: Respiratory failure, shock rapid A. fib Today Pt admitted with CHF exacerbation and alcohol withdrawal , Cr 1.5>2.4>2.1, Sodium tending, Pt intubated today Sodium 153, BS 400, corected sodium 157 Cr 1.7 will increase D5W to 125ml/hr replace potassium free water via NG to 250ml Q4hrs Physical exam General: intubated , sedated CHEST; CTAB, no wheezes or rales HEART : RRR. Normal S1,2 no murmur or rub Abd: soft, Nt Ext: no edema Skin : No rash Labs NA 153, K 3, , Cl 110, bu 72, Cr 1.76, BS 400, WBC 9.9, Hb 15.5, Plt 41 Assessment And Plan: ABDIAZIZ possibly due to ATN and dehydration COnt IVF I/o avoid NSAID and contrast renal dose meds Hypernatremia due to free water deficit on D5W will incease rate to 125ml/hr free water via NG to 250ml Q4hrs hyperglycemia strict BS control Afib with RVR currently rate controlled on AMiodarne drip thrombocytopenia unclear etiology heparin on hold ACute respiratory failure Intubated CHF Dry to euvolemic now hold lasix Physical Examination - Vital Signs Temperature: 97.5 F Blood Pressure: 119/65 Pulse: 83 Respirations: 19 Pulse Ox (%): 91 - Studies Medications List Reviewed: Yes Assessment And Plan - Current Problems (Diagnosis) (1) Acute kidney injury Current Visit: No Status: Acute Physician Review: Patient Assessed, Agree with Above Assessment and Plan
[2022-01-29] MEDS: TRAZODONE 50 MG TABLET PO SCH (20:17)
--- NOTE | 2022-01-29 21:03 | PN ---
Date of Progress Note: 01/29/2022 Subjective: Mr. Dhaliwal has been in the hospital for few days with acute on chronic systolic congesti ve heart failure. Today, he became very hypotensive. He had been intubated secondary to respiratory failure. He was in atrial fibrillation at a rate between 180 and 210. I was asked to see him. He received a cardioversion with 200 joules, but that did not work. IV amiodarone bolus and drip were r ecommended after which he converted to sinus rhythm. He was on Levophed and that was being weaned. His blood pressure improved drastically after he got back into normal rhythm. He is presently on ami odarone, Eliquis, inhaler, insulin, antibiotics. I think he may benefit from some low-dose Lasix. H is glucose is very poorly controlled associated with hypokalemia that needs to be treated. His creat inine is 1.76. His PO2 was 65 with a pCO2 of 68 consistent with CO2 retention from COPD. He certain ly has a very poor prognosis. He has a very low ejection fraction. For now, continue ventilatory crawley pport. Continue amiodarone, Eliquis, antibiotics, IV Lasix and watch his creatinine. Nephrology is on board. I will continue to follow him. NB/MODL Voice ID: [id number] Report ID: [id number]
[2022-01-29] MEDS ORDERED: Magnesium Sulfate 2gm IVPB 2 G/50 ML BAG IV ONE (23:40)
[2022-01-30 00:17] LABS: Magnesium 2.1 mg/dL (1.8-2.4); Potassium 3.2 mmol/L (3.5-5.1)
[2022-01-30] MEDS: D5W 1,000 ML IV SCH ×2 (00:24→04:23)
[2022-01-30] MEDS: INSULIN -REGULAR HUMAN 50 UNIT/0.5 ML ML SQ SCH ×5 (00:42→23:57)
[2022-01-30] MEDS ORDERED: POTASSIUM 25 MEQ EFFERV TAB PO ONE ×2 (00:45→11:16)
[2022-01-30] MEDS: LORazepam 2 MG/ML VIAL IV PRN ×2 (04:24→08:00)
[2022-01-30] MEDS: NEPRO 1,000 ML BOT FT SCH (04:38)
[2022-01-30 05:34] LABS: Absolute Lymphocytes (CBC) 1.7 K/uL (0.7-4.9); Lymphocytes % 13.8 % (15.3-44.8); MPV 11.6 fL (7.6-11.3); RBC Red Blood Cell Count 4.83 M/uL (4.33-5.43)
[2022-01-30 05:51] LABS: Albumin 1.9 g/dL (3.4-5.0); Bilirubin Total 2.7 mg/dL (0.2-1.0); Potassium 3.3 mmol/L (3.5-5.1); Protein, Total 5.4 g/dL (6.4-8.2)
[2022-01-30 06:12] LABS: Arterial Blood Carboxyhemoglob 1.6 % (0-1.5); Blood Gas Oxyhemoglobin 95.1 % (94-97); Blood O2 Saturation 97.9 % (92-98.5)
[2022-01-30] MEDS: THIAMINE 200 MG/2 ML INJ IVP SCH ×2 (08:36→20:44)
[2022-01-30] MEDS: FAMOTIDINE 20 MG/2 ML VIAL IV SCH ×2 (08:36→20:43)
[2022-01-30] MEDS: FENTANYL CITR 100 MCG/2 ML IV PRN (08:37)
[2022-01-30] MEDS: Meropenem 1,000 MG in NA CHLORIDE 0.9% 100 ML IV SCH ×2 (08:39→20:43)
[2022-01-30] MEDS: LACTULOSE 20 GM/30 ML UCUP PO SCH (08:40)
[2022-01-30] MEDS: APIXABAN 5 MG TABLET PO SCH (08:40)
[2022-01-30] MEDS: AMIODARONE HCL 900 MG in Dextrose 5%-Water 482 ML IV SCH (08:40)
[2022-01-30] MEDS: INSULIN GLARGINE 100 UNIT/ML SQ SCH (08:41)
[2022-01-30] MEDS: FOLIC ACID 1 MG in NA CHLORIDE 0.9% 50 ML IV SCH (09:25)
[2022-01-30 09:27] LABS: Platelet Estimate DECR; Platelets, Giant PRESENT; Smudge Cells PRESENT
[2022-01-30 09:28] LABS: Blood Morphology Comment NOT SEEN (NOT SEEN)
--- NOTE | 2022-01-30 10:01 | P.PN ---
Subjective Date of Service: 01/30/22 Primary Care Provider: Rhianna Chief Complaint: Respiratory failure, shock rapid A. fib Patient is not doing well had to be cardioverted last night again low-dose of Levophed continues to remain very agitated Review of Systems is unable to be obtained Physical Examination - Vital Signs Temperature: 98.6 F Blood Pressure: 118/64 Pulse: 84 Respirations: 18 Pulse Ox (%): 95 - Physical Exam General: Unresponsive Respiratory: Clear to auscultation bilaterally, Diminished - Studies Medications List Reviewed: Yes Assessment And Plan - Current Problems (Diagnosis) (1) Respiratory failure Current Visit: Yes Status: Acute Plan: Respiratory failure low-dose Levophed on 40% FiO2 hyponatremia renal function improving add thiamine thrombocytopenic avoid anticoagulation for now chest x- ray endotracheal tube is satisfactory resume propofol add some low-dose Seroquel via his NG tube patient is on tube feeds prognosis very poor add hydromorphone as needed all labs reviewed chest x-rays reviewed blood pressure stable Qualifiers: Chronicity: acute Physician Review: Patient Assessed, Agree with Above Assessment and Plan
[2022-01-30] MEDS: HYDROMORPHONE HCL 2 MG/ML inj IV PRN (11:06)
[2022-01-30] MEDS: propofoL 1,000 MG/100 ML VIAL IV PRN ×2 (11:11→23:59)
[2022-01-30] MEDS: QUETIAPINE 25 MG TAB PO SCH ×2 (11:15→20:44)
[2022-01-30] MEDS ORDERED: KCL 20 MEQ/100 mL IVPB 100 ML IV SCH (11:30)
--- NOTE | 2022-01-30 11:43 | P.PN ---
Subjective Date of Service: 01/30/22 Primary Care Provider: Rhianna Chief Complaint: Respiratory failure, shock rapid A. fib Today Pt admitted with CHF exacerbation and alcohol withdrawal , Cr 1.5>2.4>2.1, Sodium tending, Pt intubated today Sodium improving developed pulsless electrical activity , resuscitation will reduce D5W rate potassium supplementation Physical exam General: intubated , sedated CHEST; CTAB, no wheezes or rales HEART : RRR. Normal S1,2 no murmur or rub Abd: soft, Nt Ext: no edema Skin : No rash Labs NA 148, K 3.3 , , Cl 106, bun 53, Cr 1.48, BS 350, WBC 912.0, Hb 14.5, Plt 39 Assessment And Plan: ABDIAZIZ possibly due to ATN and dehydration Cr cont to improve COnt IVF I/o avoid NSAID and contrast renal dose meds Hypernatremia due to free water deficit on D5W decrease D5W rate to 60ml/hr free water via NG to 250ml Q4hrs hyperglycemia strict BS control Afib with RVR currently rate controlled on AMiodarne drip thrombocytopenia unclear etiology heparin on hold ACute respiratory failure Intubated CHF Dry to euvolemic now hold lasix Physical Examination - Vital Signs Temperature: 98.6 F Blood Pressure: 134/71 Pulse: 84 Respirations: 15 Pulse Ox (%): 96 - Studies Medications List Reviewed: Yes Assessment And Plan - Current Problems (Diagnosis) (1) Acute kidney injury Current Visit: No Status: Acute Physician Review: Patient Assessed, Agree with Above Assessment and Plan
[2022-01-30] MEDS ORDERED: POTASSIUM CL 40 MEQ in NA CHLORIDE 0.9% 500 ML IV SCH (12:00)
--- NOTE | 2022-01-30 12:53 | P.PN ---
Subjective Date of Service: 01/30/22 Primary Care Provider: Rhianna Chief Complaint: Respiratory failure, shock rapid A. fib Subjective: No new changes Review of Systems is unable to be obtained Physical Examination - Vital Signs Temperature: 98.6 F Blood Pressure: 134/71 Pulse: 84 Respirations: 15 Pulse Ox (%): 96 - Physical Exam General: Alert, In no apparent distress HEENT: Atraumatic, PERRLA, EOMI Neck: Supple, JVD not distended Respiratory: Clear to auscultation bilaterally, Normal air movement Cardiovascular: Regular rate/rhythm, Normal S1 S2 Gastrointestinal: Normal bowel sounds, No tenderness Musculoskeletal: No tenderness Integumentary: No rashes Neurological: Normal speech, Normal tone, Normal affect Lymphatics: No axilla or inguinal lymphadenopathy - Studies Medications List Reviewed: Yes Assessment And Plan - Current Problems (Diagnosis) (1) Shock Current Visit: Yes Status: Acute Plan: patient on levophed, and amiodarone. Need cardioversion this morning. Poor prognosis 01/30 Patient was cardioverted and had cpr performed twice in the last 24hrs. He is very poor prognosis Will continue fluids and levophed. Propfol for agitation (2) Acute on chronic systolic heart failure Current Visit: No Status: Acute Plan: will give intermittent furosemide. While monitoring the kidney function Consult to Dr. Quijano. the last ef was 20% in 2019 Will also monitor his troponins 01/28. He has been taken off lasix. Has been diurised over 30lbs since admission. Which would be approx 13-14 lts of fluid. This may have caused his hemithorax (3) COPD (chronic obstructive pulmonary disease) Current Visit: No Status: Chronic Plan: patient is not wheezing. Will continue breathing treatments. The patient is otherwise doing well. 01/21 Will start him on a low dose of steroids and breathing treatment Qualifiers: COPD type: COPD with acute lower respiratory infection Qualified Code(s): J44.0 - Chronic obstructive pulmonary disease with (acute) lower respiratory infection (4) Elevated troponin Current Visit: No Status: Acute Plan: will do serial troponins Consult to Dr. Quijano (5) Acute kidney injury Current Visit: No Status: Acute Plan: baseline creatine is approx 0.85. May be due to fluid overload. Will acess lasix daily if no improvement will consult Nephrololgy 3/3 creatine is stable. will continue monitoring. the patient (6) Respiratory failure Current Visit: Yes Status: Acute Plan: hemitorax. He is intubated on levophed. Was started on meropenem. Has a right hemithorax. Disussed the patient with Dr. Villavicencio. Qualifiers: Chronicity: acute (7) Delirium Current Visit: Yes Status: Resolved Plan: Patient has a history of alcoholism and drug abuse. Nurse reported that he has been drinking recently. Ammonia level was last reported as normal. Will recheck. Continue lactulose. Will consult Dr. Burns. Order an EEG, MRI Thiamine and folate. Discharge Plan: Home Plan to discharge in: Greater than 2 days - Code Status/Comfort Care Code Status Assessed: No Physician Review: Patient Assessed, Agree with Above Assessment and Plan Critical Care: Yes Time Spent Managing PTS Care (In Minutes): 20
[2022-01-30] MEDS: D5 0.45 NS 1,000 ML IV SCH (13:46)
[2022-01-30] MEDS: NOREPINEPHRINE 4 MG in D5W 250 ML IV SCH ×2 (13:46→22:22)
[2022-01-30] MEDS ORDERED: Magnesium Sulfate 2gm IVPB 2 G/50 ML BAG IV ONE (16:23)
--- NOTE | 2022-01-30 19:36 | PN ---
Date of Progress Note: 01/30/2022 Mr. Dhaliwal coated with ventricular tachycardia requiring multiple cardioversion. He was back to sinu s rhythm. We noted a prolonged QT. He has been on amiodarone for atrial fibrillation, which has wor ked for his AFib, but we have to stop the amiodarone now that his QT is elevated along. We need to g david him magnesium. It would be nice to get him transfer to a tertiary care center. I think he may b enefit from AICD and biventricular pacemaker. 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 COSME/DAVID Voice ID: [id number] Report ID: [id number]
[2022-01-30] MEDS: TRAZODONE 50 MG TABLET PO SCH (20:43)
[2022-01-30] MEDS ORDERED: ZIPRASIDONE MESYLA 20 MG/VIAL IM ONE (21:36)
[2022-01-30] MEDS ORDERED: WATER FOR INJ,STERILE 0 ML ONE (21:36)
[2022-01-31 05:21] LABS: Lymphocytes % 21.3 % (15.3-44.8); MPV 14.1 fL (7.6-11.3); RBC Red Blood Cell Count 4.71 M/uL (4.33-5.43)
[2022-01-31 05:40] LABS: Albumin 1.8 g/dL (3.4-5.0); Bilirubin Total 4.3 mg/dL (0.2-1.0); Magnesium 2.7 mg/dL (1.8-2.4); Potassium 3.5 mmol/L (3.5-5.1); Protein, Total 5.1 g/dL (6.4-8.2)
[2022-01-31] MEDS: D5 0.45 NS 1,000 ML IV SCH (06:48)
[2022-01-31] MEDS: INSULIN -REGULAR HUMAN 50 UNIT/0.5 ML ML SQ SCH ×3 (06:49→17:54)
--- NOTE | 2022-01-31 07:51 | P.PN ---
Subjective Date of Service: 01/31/22 Primary Care Provider: Rhianna Chief Complaint: Respiratory failure, shock rapid A. fib Subjective: No new changes was shocked once over the night. He has been cardioverted approx 6 times Review of Systems is unable to be obtained Physical Examination - Vital Signs Temperature: 99 F Blood Pressure: 94/69 Pulse: 80 Respirations: 17 Pulse Ox (%): 95 - Physical Exam General: Alert, Unresponsive HEENT: PERRLA, EOMI Neck: Supple, JVD not distended Respiratory: Clear to auscultation bilaterally, Diminished (vent breath sounds) Cardiovascular: Regular rate/rhythm, Normal S1 S2 Gastrointestinal: Normal bowel sounds, No tenderness Musculoskeletal: No tenderness Integumentary: No rashes Neurological: Normal speech, Normal tone, Normal affect Lymphatics: No axilla or inguinal lymphadenopathy - Studies Medications List Reviewed: Yes Assessment And Plan - Current Problems (Diagnosis) (1) Shock Current Visit: Yes Status: Acute Plan: patient on levophed, and amiodarone. Need cardioversion this morning. Poor prognosis 01/31 Patient continues to have v tach requiring cardiovesion. The patient POA is in dispute. Poor prognosis. (2) Acute on chronic systolic heart failure Current Visit: No Status: Acute Plan: will give intermittent furosemide. While monitoring the kidney function Consult to Dr. Quijano. the last ef was 20% in2018 Will also monitor his troponins 01/28. He has been taken off lasix. Has been diurised over 30lbs since admission. Which would be approx 13-14 lts of fluid. This may have caused his hemithorax (3) COPD (chronic obstructive pulmonary disease) Current Visit: No Status: Chronic Plan: patient is not wheezing. Will continue breathing treatments. The patient is otherwise doing well. 01/21 Will start him on a low dose of steroids and breathing treatment Qualifiers: COPD type: COPD with acute lower respiratory infection Qualified Code(s): J44.0 - Chronic obstructive pulmonary disease with (acute) lower respiratory infection (4) Elevated troponin Current Visit: No Status: Acute Plan: will do serial troponins Consult to Dr. Quijano (5) Acute kidney injury Current Visit: No Status: Acute Plan: baseline creatine is approx 0.85. May be due to fluid overload. Will acess lasix daily if no improvement will consult Nephrololgy 3/3 creatine is stable. will continue monitoring. the patient (6) Respiratory failure Current Visit: Yes Status: Acute Plan: hemitorax. He is intubated on levophed. Was started on meropenem. Has a right hemithorax. Disussed the patient with Dr. Villavicencio. Qualifiers: Chronicity: acute (7) Delirium Current Visit: Yes Status: Resolved Plan: Patient has a history of alcoholism and drug abuse. Nurse reported that he has been drinking recently. Ammonia level was last reported as normal. Will recheck. Continue lactulose. Will consult Dr. Burns. Order an EEG, MRI Thiamine and folate. Discharge Plan: Home Plan to discharge in: Greater than 2 days - Code Status/Comfort Care Code Status Assessed: No Physician Review: Patient Assessed, Agree with Above Assessment and Plan Critical Care: Yes Time Spent Managing PTS Care (In Minutes): 20
[2022-01-31] MEDS: INSULIN GLARGINE 100 UNIT/ML SQ SCH (08:47)
[2022-01-31] MEDS: FAMOTIDINE 20 MG/2 ML VIAL IV SCH ×2 (08:52→21:38)
[2022-01-31] MEDS: THIAMINE 200 MG/2 ML INJ IVP SCH ×2 (08:52→21:39)
[2022-01-31] MEDS: Meropenem 1,000 MG in NA CHLORIDE 0.9% 100 ML IV SCH ×2 (08:52→21:35)
[2022-01-31] MEDS: LACTULOSE 20 GM/30 ML UCUP PO SCH (08:53)
[2022-01-31] MEDS: QUETIAPINE 25 MG TAB PO SCH ×2 (08:53→21:38)
[2022-01-31] MEDS: FOLIC ACID 1 MG in NA CHLORIDE 0.9% 50 ML IV SCH (08:54)
--- NOTE | 2022-01-31 11:39 | PN ---
Date of Progress Note: 01/31/2022 Mr. Dhaliwal remains intubated. His O2 saturation is adequate. He has remained hypotensive, on Levoph ed. Had another episode of torsade yesterday that was treated with magnesium and 1 shock. He is mary jane k in normal rhythm and has not had any more arrhythmias. It was thought that his amiodarone had caus ed his QT to be prolonged course. He has severe cardiomyopathy, alcoholic cardiomyopathy which is co ntributing to his arrhythmia. We will continue his present regimen for now. The case was discussed with Dr. Moctezuma. Hopefully, he will improve slowly and be extubated, at which time, we can resume his CHF medication and considering for a defibrillator and biventricular pacemaker down the road. COSME/DAVID Voice ID: [id number] Report ID: [id number]
--- NOTE | 2022-01-31 12:03 | P.PN ---
Subjective Date of Service: 01/31/22 Primary Care Provider: Rhianna Chief Complaint: Respiratory failure, shock rapid A. fib Patient has been cardioverted many times amiodarone stopped due to prolongation of QT interval he appears to be more stable now Review of Systems is unable to be obtained Physical Examination - Vital Signs Temperature: 99.4 F Blood Pressure: 97/66 Pulse: 81 Respirations: 18 Pulse Ox (%): 97 - Physical Exam General: Unresponsive Respiratory: Clear to auscultation bilaterally, Diminished Cardiovascular: No edema, Regular rate/rhythm - Studies Medications List Reviewed: Yes Assessment And Plan - Current Problems (Diagnosis) (1) Respiratory failure Current Visit: Yes Status: Acute Plan: Respiratory failure patient on low-dose propofol renal function improving patient is thrombocytopenic cultures so far negative some yeast isolated chest x-ray nonspecific changes endotracheal tube satisfactory DC trazodone Qualifiers: Chronicity: acute Physician Review: Patient Assessed, Agree with Above Assessment and Plan
--- NOTE | 2022-01-31 13:14 | RAD REPORT ---
EXAM DESCRIPTION: RAD - Chest Single View - 01/29/2022 11:44 pm CLINICAL HISTORY: 56 years Male post code COMPARISON: 01/29/2022 at 6:29 AM. FINDINGS: Stable endotracheal tube tip above the jennifer. The feeding tube extends beneath the left h emidiaphragm. Right PICC overlies the right atrium similar compared to the prior study. Stable mild c ardiomegaly. Mild opacity at the lung bases similar compared to the prior study which could be from s mall pleural effusions with atelectasis and airspace disease. No pneumothorax. IMPRESSION: Stable appearance of tubes and lines. Stable opacity overlying the lower lungs likely fr om small pleural effusions with associated atelectasis/airspace disease. Electronically signed by: Jarrett Stevenson MD 01/30/2022 12:00 AM CURB MACHINE OPERATOR Due to temporary technical issues with the PACS/Fluency reporting system, reports are being signed by the in house radiologist without review as a courtesy to ensure prompt reporting. The interpreting r adiologist is fully responsible for the content of the report.
[2022-01-31] MEDS ORDERED: EPINEPHrine 1 MG/10 ML SYR IV ONE (13:35)
--- NOTE | 2022-01-31 17:06 | P.PN ---
Date of Service: 01/31/22 Had a family meeting with the the estranged (Tessy living in [place]), sister in law Tamera Yang, the son Rus. Still is listed as the power of avionics manager. Per the most recent Advance directive. Discussed the prognosis. [employer] his chance of surviving is 18% for a code situation. Let alone multiple situations The family is leaning towards DNR and removal of lifesupport. However they would like some time to make a final decision. They would like Mrs Marivel Jefferson to have no longer have any contact and be barred from visiting. In the interest of compassion. Will allow her to come say her goodbyes. Have called Mrs Jefferson. told her she may come tomorrow at 10am. She may not record, must be respectful. She responded by saying she will not comply. She wants his records and will domonique us. Have informed her that we are under no obligation to do these things. Have discussed with the radiation safety officer and staff. She may visit at 10 am only. Would be alcala to have information security systems instructor her on and off campus She is not allowed to come anytime other than 10 am on Monday02/01/21
[2022-01-31] MEDS: propofoL 1,000 MG/100 ML VIAL IV PRN (17:56)
[2022-01-31] MEDS ORDERED: POTASSIUM PHOS 10 MM in NA CHLORIDE 0.9% 250 ML IV ONE (18:00)
--- NOTE | 2022-02-01 00:47 | PN ---
Date of Progress Note: 01/31/2022 Chief Complaint: Acute kidney injury History Of Present Illness: The patient remains in ICU. He is intubated. He was admitted for conge stive heart failure exacerbation and alcohol withdrawal. The patient has respiratory failure. He pugh d rapid atrial fibrillation. The patient was found to have hypomagnesemia and hypophosphatemia. He is receiving replacement. Review of Systems: Unobtainable. Physical Examination: Lungs: Clear to auscultation bilaterally. Heart: S1, S2. He remains hypotensive and he is on Levophed. Abdomen: Soft, benign. Extremities: No edema. Impression And Plan: Acute kidney injury, nonoliguric. Continue Lasix drip. The patient had another episode of torsade yesterday and was treated with magnesium and had 1 shock. He is back to normal rate. Continue to monitor phosphorus and magnesium. Continue replacement. 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 The patient remains intubated per recommendation from Critical Care Team. NGOZI/DAVID Voice ID: [id number] Report ID: [id number]
[2022-02-01] MEDS: INSULIN -REGULAR HUMAN 50 UNIT/0.5 ML ML SQ SCH ×5 (01:00→23:47)
[2022-02-01] MEDS: D5 0.45 NS 1,000 ML IV SCH (01:09)
[2022-02-01 05:35] LABS: Phosphorus 2.5 mg/dL (2.5-4.9); Potassium 3.4 mmol/L (3.5-5.1)
--- NOTE | 2022-02-01 07:34 | P.PN ---
Subjective Date of Service: 02/01/22 Primary Care Provider: Rhianna Chief Complaint: Respiratory failure, shock rapid A. fib levophed is off. patient hypotensive Review of Systems is unable to be obtained Physical Examination - Vital Signs Temperature: 98.3 F Blood Pressure: 102/63 Pulse: 77 Respirations: 26 Pulse Ox (%): 93 - Physical Exam General: Unresponsive HEENT: Atraumatic, PERRLA, EOMI Neck: Supple, JVD not distended Respiratory: Clear to auscultation bilaterally, Normal air movement Cardiovascular: Regular rate/rhythm, Normal S1 S2 Gastrointestinal: Normal bowel sounds, No tenderness Musculoskeletal: No tenderness Integumentary: No rashes Neurological: Normal speech, Normal tone, Normal affect Lymphatics: No axilla or inguinal lymphadenopathy - Studies Medications List Reviewed: Yes Assessment And Plan - Current Problems (Diagnosis) (1) Shock Current Visit: Yes Status: Acute Plan: patient on levophed, and amiodarone. Need cardioversion this morning. Poor prognosis 01/31 Patient continues to have v tach requiring cardiovesion. The patient POA is in dispute. Poor prognosis. (2) Acute on chronic systolic heart failure Current Visit: No Status: Acute Plan: will give intermittent furosemide. While monitoring the kidney function Consult to Dr. Quijano. the last ef was 20% in2018 Will also monitor his troponins 01/28. He has been taken off lasix. Has been diurised over 30lbs since admission. Which would be approx 13-14 lts of fluid. This may have caused his hemithorax (3) COPD (chronic obstructive pulmonary disease) Current Visit: No Status: Chronic Plan: patient is not wheezing. Will continue breathing treatments. The patient is otherwise doing well. 01/21 Will start him on a low dose of steroids and breathing treatment Qualifiers: COPD type: COPD with acute lower respiratory infection Qualified Code(s): J44.0 - Chronic obstructive pulmonary disease with (acute) lower respiratory infection (4) Elevated troponin Current Visit: No Status: Acute Plan: will do serial troponins Consult to Dr. Quijano (5) Acute kidney injury Current Visit: No Status: Acute Plan: baseline creatine is approx 0.85. May be due to fluid overload. Will acess lasix daily if no improvement will consult Nephrololgy 01/27 creatine is stable. will continue monitoring. the patient (6) Respiratory failure Current Visit: Yes Status: Acute Plan: hemitorax. He is intubated on levophed. Was started on meropenem. Has a right hemithorax. Disussed the patient with Dr. Villavicencio. Qualifiers: Chronicity: acute (7) Delirium Current Visit: Yes Status: Resolved Plan: Patient has a history of alcoholism and drug abuse. Nurse reported that he has been drinking recently. Ammonia level was last reported as normal. Will recheck. Continue lactulose. Will consult Dr. Burns. Order an EEG, MRI Thiamine and folate. (8) End of life care Current Visit: Yes Status: Acute Plan: awaiting family to make there wishes known. Have discussed with them last night. Seem to be leaning towards DNR and withdrawal of care. However we blanca wait for them to declare that. Discharge Plan: Other Plan to discharge in: 24 Hours - Code Status/Comfort Care Code Status Assessed: No Physician Review: Patient Assessed, Agree with Above Assessment and Plan Critical Care: Yes Time Spent Managing PTS Care (In Minutes): 20
[2022-02-01] MEDS ORDERED: POTASSIUM PHOS IN 0.9 % NACL 15 MMOL/250 ML BAG IV ONE (08:01)
[2022-02-01] MEDS ORDERED: POTASSIUM 25 MEQ EFFERV TAB PO ONE (08:02)
[2022-02-01] MEDS: Meropenem 1,000 MG in NA CHLORIDE 0.9% 100 ML IV SCH ×2 (09:34→21:24)
[2022-02-01] MEDS: QUETIAPINE 25 MG TAB PO SCH ×2 (09:34→21:24)
[2022-02-01] MEDS: THIAMINE 200 MG/2 ML INJ IVP SCH ×2 (09:34→21:24)
[2022-02-01] MEDS: LACTULOSE 20 GM/30 ML UCUP PO SCH (09:36)
[2022-02-01] MEDS: propofoL 1,000 MG/100 ML VIAL IV PRN (09:37)
[2022-02-01] MEDS: FAMOTIDINE 20 MG/2 ML VIAL IV SCH ×2 (09:37→21:24)
[2022-02-01] MEDS: INSULIN GLARGINE 100 UNIT/ML SQ SCH (09:37)
[2022-02-01] MEDS: NOREPINEPHRINE 4 MG in D5W 250 ML IV SCH (09:38)
[2022-02-01] MEDS: FOLIC ACID 1 MG in NA CHLORIDE 0.9% 50 ML IV SCH (09:39)
[2022-02-01] MEDS: HYDROMORPHONE HCL 2 MG/ML inj IV PRN ×2 (11:45→19:39)
--- NOTE | 2022-02-01 12:52 | EKG ---
Test Date: 2022-01-30 Test Time: 15:50:16 Embroidery Designer: MEASUREMENT RESULTS: Intervals: Rate: 65 TN: 212 QRSD: 168 QT: 600 QTc: 624 [place]: P: 26 TN: 212 QRS: -87 T: 86 INTERPRETIVE STATEMENTS: Sinus rhythm with 1st degree AV block Left axis deviation Right bundle branch block Inferior infarct, age undetermined Anterior infarct, age undetermined Abnormal ECG Compared to ECG 01/29/2022 23:21:52 First degree AV block now present Sinus tachycardia no longer present Fusion complex(es) no longer present Myocardial infarct finding still present Electronically Signed On 02-01-22 12:50:00 CUSTOMER SUPPORT COORDINATOR by Shane Quijano
--- NOTE | 2022-02-01 15:48 | P.PN ---
Subjective Date of Service: 02/01/22 Primary Care Provider: Rhianna Chief Complaint: Respiratory failure, shock rapid A. fib Subjective: Other (Remains bedridden) Physical Examination - Vital Signs Temperature: 99.1 F Blood Pressure: 89/60 Pulse: 65 Respirations: 15 Pulse Ox (%): 96 - Physical Exam General: Other (appears acutely ill) HEENT: Atraumatic, Normocephalic Neck: Supple Respiratory: Other (symmetric chest expansion) Cardiovascular: No rubs, No murmurs Gastrointestinal: Soft and benign, No guarding Musculoskeletal: No clubbing Integumentary: No warmth Neurological: Other (nonfocal) Urinary: Torres catheter External genitalia: Deferred Rectal: Deferred - Studies Medications List Reviewed: Yes Assessment And Plan - Plan # # ABDIAZIZ 2/2 ischemic ATN + CRS1 + urinary retention Baseline serum creatinine 0.8-1.0 as of 08/25/2021 Serum creatinine at 1.3 today On levo gtt. Titrate to keep MAP > 65 Cont torres Strict I/O Dc maintenance IV fluid. Keep fluid balance net even per day. Monitor renal panel # Acute respiratory failure 2/2 acute on chronic CHF +/- COPD exacerbation TTE on 01/18/2022 showed dilated LA & LV, LVEF 25-30% Chest CT on 01/2020 showed no evidence of pulmonary Htn Receiving steroids, inhalers, nebs, empiric abx Needs Lifevest prior to dc Remains intubated # Shock Levo gtt as above # Torsades, vtach Amio d/c'ed Monitor/replete Mg prn # Anemia Monitor H/H Physician Review: Patient Assessed, Agree with Above Assessment and Plan
[2022-02-02] MEDS: HYDROMORPHONE HCL 2 MG/ML inj IV PRN ×2 (02:53→12:52)
[2022-02-02] MEDS: ACETAMINOPHEN 325 MG TABLET PO PRN (04:53)
[2022-02-02] MEDS: NOREPINEPHRINE 4 MG in D5W 250 ML IV SCH (06:26)
[2022-02-02] MEDS: INSULIN -REGULAR HUMAN 50 UNIT/0.5 ML ML SQ SCH ×3 (06:33→18:00)
[2022-02-02 07:01] LABS: Magnesium 2.4 mg/dL (1.8-2.4); Potassium 3.4 mmol/L (3.5-5.1)
--- NOTE | 2022-02-02 08:27 | P.PN ---
Subjective Date of Service: 02/02/22 Primary Care Provider: Rhianna Chief Complaint: Respiratory failure, shock rapid A. fib Condition stable patient continues to remain agitated dynamically stable tolerating tube feeds Review of Systems is unable to be obtained Physical Examination - Vital Signs Temperature: 98.7 F Blood Pressure: 131/67 Pulse: 71 Respirations: 15 Pulse Ox (%): 94 - Physical Exam General: Delirious, Unresponsive Respiratory: Clear to auscultation bilaterally, Diminished Cardiovascular: No edema, Regular rate/rhythm - Studies Medications List Reviewed: Yes Assessment And Plan - Current Problems (Diagnosis) (1) Respiratory failure Current Visit: Yes Status: Acute Plan: Respiratory failure patient continues to remain delirious requiring as needed medication currently stable DC Seroquel patient is on FiO2 of 30% clinical evidence of sepsis DC meropenem chest x-rays have been ordered Qualifiers: Chronicity: acute Physician Review: Patient Assessed, Agree with Above Assessment and Plan
[2022-02-02] MEDS: LACTULOSE 20 GM/30 ML UCUP PO SCH (08:45)
[2022-02-02] MEDS: THIAMINE 200 MG/2 ML INJ IVP SCH ×2 (08:45→20:22)
[2022-02-02] MEDS: FAMOTIDINE 20 MG/2 ML VIAL IV SCH ×2 (08:45→20:22)
[2022-02-02] MEDS: INSULIN GLARGINE 100 UNIT/ML SQ SCH (08:45)
[2022-02-02] MEDS: LORazepam 2 MG/ML VIAL IV PRN (08:51)
[2022-02-02] MEDS: HALOPERIDOL LACT 5 MG/ML INJ IV PRN (10:29)
--- NOTE | 2022-02-02 10:53 | RAD REPORT ---
EXAM DESCRIPTION: [place] Single View02/02/2022 10:03 am CLINICAL HISTORY: Respiratory failure COMPARISON: January 29, 2022 FINDINGS: Endotracheal tube has its tip overlying aortic arch. Orogastric tube enters the stomach Right basilar opacity represents atelectasis and is mildly worsened since the prior exam. Additional bilateral pulmonary opacities may represent pulmonary edema. The heart remains enlarged. Small pleural effusions suspected. PICC line in place
--- NOTE | 2022-02-02 12:06 | PN ---
Date of Progress Note: 02/01/2022 Mr. Dhaliwal has not had any further ventricular tachycardia or torsade. He has been off the amiodaron e now for about 2 days. Remained, however, hypoxic and congestive heart failure and hypotensive. Th ere was discussion of hospice care and withdrawal of care by his and primary care physician. I think he may be still septic. He is on antibiotics. He is receiving some gentle hydration. He charles ins intubated. His rhythm still is sinus rhythm. I will continue to follow on an as needed basis, b ut no further recommendations at this point. COSME/DAVID Voice ID: [id number] Report ID: [id number]
--- NOTE | 2022-02-02 13:23 | P.PN ---
Subjective Date of Service: 02/02/22 Primary Care Provider: Rhianna Chief Complaint: Respiratory failure, shock rapid A. fib back on levophed. the patient is dnr per his family Review of Systems is unable to be obtained Physical Examination - Vital Signs Temperature: 98.7 F Blood Pressure: 114/66 Pulse: 71 Respirations: 15 Pulse Ox (%): 95 - Physical Exam General: Unresponsive HEENT: Atraumatic, PERRLA, EOMI Neck: Supple, JVD not distended Respiratory: Clear to auscultation bilaterally, Normal air movement Cardiovascular: Regular rate/rhythm, Normal S1 S2 Gastrointestinal: Normal bowel sounds, No tenderness Musculoskeletal: No tenderness Integumentary: No rashes Neurological: Normal speech, Normal tone, Normal affect Lymphatics: No axilla or inguinal lymphadenopathy - Studies Medications List Reviewed: Yes Assessment And Plan - Current Problems (Diagnosis) (1) End of life care Current Visit: Yes Status: Acute Plan: awaiting family to make there wishes known. Have discussed with them last night. Seem to be leaning towards DNR and withdrawal of care. However we blanca wait for them to declare that. 02/02 Will await family decision regarding withdrawal of care (2) Shock Current Visit: Yes Status: Acute Plan: patient on levophed, and amiodarone. Need cardioversion this morning. Poor prognosis 02/02 on levophed (3) Acute on chronic systolic heart failure Current Visit: No Status: Acute Plan: will give intermittent furosemide. While monitoring the kidney function Consult to Dr. Quijano. the last ef was 20% in2018 Will also monitor his troponins 01/28. He has been taken off lasix. Has been diurised over 30lbs since admission. Which would be approx 13-14 lts of fluid. This may have caused his hemithorax (4) COPD (chronic obstructive pulmonary disease) Current Visit: No Status: Chronic Plan: patient is not wheezing. Will continue breathing treatments. The patient is otherwise doing well. 01/21 Will start him on a low dose of steroids and breathing treatment Qualifiers: COPD type: COPD with acute lower respiratory infection Qualified Code(s): J44.0 - Chronic obstructive pulmonary disease with (acute) lower respiratory infection (5) Elevated troponin Current Visit: No Status: Acute Plan: will do serial troponins Consult to Dr. Quijano (6) Acute kidney injury Current Visit: No Status: Acute Plan: baseline creatine is approx 0.85. May be due to fluid overload. Will acess lasix daily if no improvement will consult Nephrololgy 3/3 creatine is stable. will continue monitoring. the patient (7) Respiratory failure Current Visit: Yes Status: Acute Plan: hemitorax. He is intubated on levophed. Was started on meropenem. Has a right hemithorax. Disussed the patient with Dr. Villavicencio. Qualifiers: Chronicity: acute (8) Delirium Current Visit: Yes Status: Resolved Plan: Patient has a history of alcoholism and drug abuse. Nurse reported that he has been drinking recently. Ammonia level was last reported as normal. Will recheck. Continue lactulose. Will consult Dr. Burns. Order an EEG, MRI Thiamine and folate. Discharge Plan: Home Plan to discharge in: Greater than 2 days - Code Status/Comfort Care Code Status Assessed: No Physician Review: Patient Assessed, Agree with Above Assessment and Plan Critical Care: Yes Time Spent Managing PTS Care (In Minutes): 20
[2022-02-02] MEDS: propofoL 1,000 MG/100 ML VIAL IV SCH (13:52)
--- NOTE | 2022-02-02 14:15 | PN ---
Date of Progress Note: 02/02/2022 Subjective: The patient was admitted with acute kidney injury, cardiorenal, encephalopathy secondary to alcohol intoxication. The patient was required diuresis as Lasix drip. Respiratory status has been improved. The patient developed hypernatremia. Diuresis has been held after establishing good volume control. The patient is on Levophed on tapering dose. Physical Examination: Vital Signs: Blood pressure of 89/59, pulse of 71. The patient had good urine output of 1700. Chest: Crackles with decreased entry on the right base. Heart: S1, S2. Systolic murmur. Abdomen: Soft, nontender. Extremity: Venous stasis change. Trace edema. Laboratory Data: WBC 9.4, H and H 14.1/43, platelets 44. Sodium 142, potassium 3.4, bicarb 36, BUN 51, creatinine 1.4, calcium 7.7, magnesium 2.4. Current Medications: The patient on include Tylenol, haloperidol, lactulose, Pepcid, insulin, tube feeding with free water 250 every 4 hours. Assessment And Plan: 1. Acute kidney injury secondary to cardiorenal, currently close to normal volume. I am going to continue to monitor the patient and we will follow up. Given the advanced congestive heart failure and hypokalemia with liver failure, I am going to start the patient with low dose of spironolactone and we will follow up. We will start the patient on midodrine to start facilitate weaning from the Levophed. 2. Hypokalemia, status post supplement. We will start spironolactone and we will follow up. 3. Respiratory failure, multifactorial, secondary to chronic obstructive pulmonary disease, congestive heart failure with exacerbation, cardiorenal. Continue current support. Start the patient on spironolactone and we will follow up. 4. Congestive heart failure as above. Hold on the Lasix. 5. Hypernatremia secondary to over diuresis. Hold the Lasix. Start spironolactone. 6. Altered mental status, encephalopathy metabolic as by primary. Time spent examining the patient, [id number], discussing with the patient, reviewing data including radiology and laboratory, placing order, discussing the case with other hourly team members including nursing and charge nurse, discussing the case with other subspecialists including hospitalist 35 minutes. JAMEL Voice ID: [id number] Report ID: [id number] [facility]
--- NOTE | 2022-02-02 14:24 | RAD REPORT ---
EXAM DESCRIPTION: RAD - Abdomen 1 View (KUB) - 02/02/2022 2:16 pm CLINICAL HISTORY: dobhoff placement COMPARISON: Abdomen 1 View (KUB) dated 01/25/2022; Chest Single View dated 01/29/2022 FINDINGS: Dobhoff feeding tube has been placed. Tip of the feeding tube is in the midportion or body of the stomach. There is no abnormal bend or kink of the tubing. No bowel obstruction, free air or pneumatosis in the upper abdomen. IMPRESSION: Dobhoff feeding tube placement with tip in the body of the stomach.
[2022-02-02] MEDS: MIDODRINE HCL 5 MG TABLET PO SCH (20:22)
[2022-02-03] MEDS: NOREPINEPHRINE 4 MG in D5W 250 ML IV SCH (01:29)
[2022-02-03] MEDS: propofoL 1,000 MG/100 ML VIAL IV SCH ×2 (01:40→14:08)
[2022-02-03] MEDS: INSULIN -REGULAR HUMAN 50 UNIT/0.5 ML ML SQ SCH ×4 (05:47→17:58)
[2022-02-03] MEDS: FAMOTIDINE 20 MG/2 ML VIAL IV SCH ×2 (08:07→21:05)
[2022-02-03] MEDS: SPIRONOLACTONE 25 MG TABLET PO SCH (08:07)
[2022-02-03] MEDS: MIDODRINE HCL 5 MG TABLET PO SCH ×3 (08:07→21:05)
[2022-02-03] MEDS: THIAMINE 200 MG/2 ML INJ IVP SCH ×2 (08:07→21:05)
[2022-02-03] MEDS: LACTULOSE 20 GM/30 ML UCUP PO SCH (08:08)
[2022-02-03] MEDS: INSULIN GLARGINE 100 UNIT/ML SQ SCH (08:08)
--- NOTE | 2022-02-03 08:24 | P.PN ---
Subjective Date of Service: 02/03/22 Primary Care Provider: Rhianna Chief Complaint: Respiratory failure, shock rapid A. fib Subjective: No new changes back on levophed. the patient is dnr per his family Review of Systems 10-point ROS is otherwise unremarkable Physical Examination - Vital Signs Temperature: 98.2 F Blood Pressure: 133/73 Pulse: 62 Respirations: 22 Pulse Ox (%): 99 - Physical Exam General: Unresponsive HEENT: Atraumatic, PERRLA, EOMI Neck: Supple, JVD not distended Respiratory: Clear to auscultation bilaterally, Normal air movement Cardiovascular: Regular rate/rhythm, Normal S1 S2 Gastrointestinal: Normal bowel sounds, No tenderness Musculoskeletal: No tenderness Integumentary: No rashes Neurological: Normal speech, Normal tone, Normal affect Lymphatics: No axilla or inguinal lymphadenopathy - Studies Medications List Reviewed: Yes Assessment And Plan - Current Problems (Diagnosis) (1) End of life care Current Visit: Yes Status: Acute Plan: awaiting family to make there wishes known. Have discussed with them last night. Seem to be leaning towards DNR and withdrawal of care. However we blanca wait for them to declare that. 02/03 Will try calling the patient Tessy Yang (2) Shock Current Visit: Yes Status: Acute Plan: patient on levophed, and amiodarone. Need cardioversion this morning. Poor prognosis 02/02 on levophed (3) Acute on chronic systolic heart failure Current Visit: No Status: Acute Plan: will give intermittent furosemide. While monitoring the kidney function Consult to Dr. Quijano. the last ef was 20% in2018 Will also monitor his troponins 01/28. He has been taken off lasix. Has been diurised over 30lbs since admission. Which would be approx 13-14 lts of fluid. This may have caused his hemithorax (4) COPD (chronic obstructive pulmonary disease) Current Visit: No Status: Chronic Plan: patient is not wheezing. Will continue breathing treatments. The patient is otherwise doing well. 01/21 Will start him on a low dose of steroids and breathing treatment Qualifiers: COPD type: COPD with acute lower respiratory infection Qualified Code(s): J44.0 - Chronic obstructive pulmonary disease with (acute) lower respiratory infection (5) Elevated troponin Current Visit: No Status: Acute Plan: will do serial troponins Consult to Dr. Quijano (6) Acute kidney injury Current Visit: No Status: Acute Plan: baseline creatine is approx 0.85. May be due to fluid overload. Will acess lasix daily if no improvement will consult Nephrololgy 3/3 creatine is stable. will continue monitoring. the patient (7) Respiratory failure Current Visit: Yes Status: Acute Plan: hemitorax. He is intubated on levophed. Was started on meropenem. Has a right hemithorax. Disussed the patient with Dr. Villavicencio. Qualifiers: Chronicity: acute (8) Delirium Current Visit: Yes Status: Resolved Plan: Patient has a history of alcoholism and drug abuse. Nurse reported that he has been drinking recently. Ammonia level was last reported as normal. Will recheck. Continue lactulose. Will consult Dr. Burns. Order an EEG, MRI Thiamine and folate. Discharge Plan: Home Plan to discharge in: 24 Hours - Code Status/Comfort Care Code Status Assessed: No Physician Review: Patient Assessed, Agree with Above Assessment and Plan Critical Care: No Time Spent Managing PTS Care (In Minutes): 25
--- NOTE | 2022-02-03 08:45 | RAD REPORT ---
EXAM DESCRIPTION: RAD - Chest Single View - 02/03/2022 5:31 am CLINICAL HISTORY: Respiratory failure Chest pain. COMPARISON: Abdomen 1 View (KUB) dated 02/02/2022; Chest Single View dated 02/02/2022; Chest Single View dated 01/29/2022; Chest Single View dated 01/29/2022 FINDINGS: Portable technique limits examination quality. Extensive bilateral pulmonary opacities are again noted, appearing mildly progressive since yesterday 's study. Heart is moderately enlarged in size. Endotracheal tube tip is at the level of the superior aortic arch.Enteric tube coils in the stomach. Right-sided venous catheter has tip in the SVC/ right atrium junction. IMPRESSION: Mild worsening in lung aeration is seen since yesterday's study.
[2022-02-03] MEDS: HYDROMORPHONE HCL 2 MG/ML inj IV PRN (10:08)
[2022-02-03] MEDS ORDERED: FUROSEMIDE 40 MG/4 ML VIAL IV ONE (11:36)
[2022-02-03] MEDS ORDERED: FUROSEMIDE 40 MG in NA CHLORIDE 0.9% 50 ML IV ONE (12:00)
--- NOTE | 2022-02-03 14:09 | PN ---
Date of Progress Note: 02/03/2022 Subjective: The patient was admitted with acute kidney injury secondary to cardiorenal, developed hypernatremia, respiratory failure secondary to over volume. The patient after being diuresed, developed hypernatremia, treated, recovered. The patient still has altered mental status secondary to alcohol intoxication. Physical Examination: Vital Signs: When I saw the patient; blood pressure 93/63, pulse of 62. The patient was restarted on Levophed. Had urine output of 1450, positive of 2100. Chest: Decreased entry bilateral base. Heart: S1, S2. Systolic murmur. Abdomen: Soft, nontender. Extremity: Venous stasis change both lower extremities. No edema. Laboratory Data: Chest x-ray; cardiomegaly with congestion bilateral. WBC 9.4, H and H 14.1/43. Sodium 142, potassium 3.4, bicarb 36, BUN 51, creatinine 1.4, calcium 7.7, magnesium 2.4. Current Medications: The patient on include spironolactone 25 mg daily, Levophed, midodrine 5 mg b.i.d., sedation, lactulose, Pepcid, free water. Assessment And Plan: 1. Acute kidney injury secondary to cardiorenal, nonoliguric, currently back to be over volume. I am going to give the patient a single dose of Lasix to establish better volume control. We will continue to monitor the patient. Continue spironolactone. 2. Hyponatremia, resolved. Again, I am going to give the patient a single dose of Lasix. Continue current free water. 3. Hypokalemia. We will supplement cautiously. 4. Respiratory failure, multifactorial, secondary to cardiorenal. I will diurese the patient again. 5. Congestive heart failure exacerbation as above. 6. Encephalopathy as by primary. Follow up with Pulmonary. Time spent examining the patient, discussing the case with nursing, [id number] exam of the patient, placing order, reviewing data including radiology and lab, discussing the case with the hospitalist and nursing bakery team member 35 minutes. JAMEL Voice ID: [id number] Report ID: [id number] MTDD
--- NOTE | 2022-02-03 16:50 | P.PN ---
Date of Service: 02/03/22 Patient Mrs Lara called. She does not think a trach and peg is the way to go. Will try to arrange another family meeting for tomorrow. Will call nursing to try to set up an family meeting for tomorrow
[2022-02-04] MEDS: INSULIN -REGULAR HUMAN 50 UNIT/0.5 ML ML SQ SCH ×4 (00:46→17:52)
[2022-02-04] MEDS: propofoL 1,000 MG/100 ML VIAL IV SCH ×3 (00:46→16:30)
--- NOTE | 2022-02-04 04:57 | P.PN ---
Subjective Date of Service: 02/04/22 Primary Care Provider: Rhianna Chief Complaint: Respiratory failure, shock rapid A. fib Subjective: Other (Remains bedridden) Physical Examination - Vital Signs Temperature: 98.6 F Blood Pressure: 109/73 Pulse: 66 Respirations: 17 Pulse Ox (%): 96 - Physical Exam General: Other (Intubated/sedated) HEENT: Atraumatic, Normocephalic, Other (Intubated) Neck: Supple, JVD not distended Respiratory: Other (Symmetric chest expansion) Cardiovascular: No rubs, No murmurs Gastrointestinal: Soft and benign, No guarding Musculoskeletal: No clubbing Integumentary: No warmth Neurological: Other (Sedated) Urinary: Torres catheter External genitalia: Deferred Rectal: Deferred - Studies Medications List Reviewed: Yes Assessment And Plan - Plan # # ABDIAZIZ 2/2 ischemic ATN + CRS1 + urinary retention Baseline serum creatinine 0.8-1.0 as of 08/25/2021 Serum creatinine at 1.2 today Keep MAP > 65 Cont torres Strict I/O Keep fluid balance net even per day Cont tube feed and water flush same rates Monitor renal panel # Hypokalemia KCl repletion prn # Acute respiratory failure 2/2 acute on chronic CHF +/- COPD exacerbation TTE on 01/18/2022 showed dilated LA & LV, LVEF 25-30% Chest CT on 01/2020 showed no evidence of pulmonary Htn Received steroids, inhalers, nebs, empiric abx Needs Lifevest Remains intubated # Shock MAP goal > 65 # Torsades, vtach Amio d/c'ed Monitor/replete Mg prn # Anemia Monitor H/H Physician Review: Patient Assessed, Agree with Above Assessment and Plan
[2022-02-04 05:07] LABS: Albumin 1.8 g/dL (3.4-5.0); Phosphorus 2.5 mg/dL (2.5-4.9); Potassium 3.3 mmol/L (3.5-5.1)
[2022-02-04] MEDS ORDERED: POTASSIUM 25 MEQ EFFERV TAB PO ONE (06:49)
[2022-02-04] MEDS ORDERED: KCL 20 MEQ/100 mL IVPB 20 MEQ/100 ML BAG IV SCH (07:00)
--- NOTE | 2022-02-04 07:24 | RAD REPORT ---
EXAM DESCRIPTION: RAD - Chest Single View - 02/04/2022 6:13 am CLINICAL HISTORY: Respiratory failure COMPARISON: Chest Single View dated 02/03/2022; Abdomen 1 View (KUB) dated 02/02/2022; Chest Single Vie w dated 02/02/2022; Chest Single View dated 01/29/2022 FINDINGS: Lines: Endotracheal tube and feeding tube noted and in satisfactory position. PICC in sati sfactory position overlying the SVC . Lungs: Similar pulmonary edema. Pleural: Layering pleural effusions. Cardiac: Cardiomegaly. Bones: No acute fractures. Other: IMPRESSION: Persistent pulmonary edema which is stable to mildly improved. Support apparatus in sati sfactory position.
[2022-02-04] MEDS: FAMOTIDINE 20 MG/2 ML VIAL IV SCH ×2 (07:56→21:00)
[2022-02-04] MEDS: SPIRONOLACTONE 25 MG TABLET PO SCH (07:56)
[2022-02-04] MEDS: MIDODRINE HCL 5 MG TABLET PO SCH ×3 (07:56→21:00)
[2022-02-04] MEDS: THIAMINE 200 MG/2 ML INJ IVP SCH ×2 (07:56→21:00)
[2022-02-04] MEDS: LACTULOSE 20 GM/30 ML UCUP PO SCH (07:56)
[2022-02-04] MEDS: INSULIN GLARGINE 100 UNIT/ML SQ SCH (07:57)
--- NOTE | 2022-02-04 10:22 | RAD REPORT ---
EXAM DESCRIPTION: US - UPPER EXTREMITY VENOUS UNILATE - 02/04/2022 10:06 am CLINICAL HISTORY: r/o DVT COMPARISON: Extremity Venous Uni Ltd dated 05/03/2019 FINDINGS: Color Doppler, grayscale, and spectral analysis was performed. No thrombosis in the right upper extremity is identified. The cephalic vein was not visualized. IMPRESSION: No right upper extremity thrombosis identified.
[2022-02-04] MEDS: LEVALBUTEROL 0.63 MG/3 ML NEB NEB PRN (12:20)
--- NOTE | 2022-02-04 16:58 | P.PN ---
Subjective Date of Service: 02/04/22 Primary Care Provider: Rhianna Chief Complaint: Respiratory failure, shock rapid A. fib Subjective: No new changes back on levophed. the patient is dnr per his family Review of Systems is unable to be obtained Physical Examination - Vital Signs Temperature: 98.6 F Blood Pressure: 109/73 Pulse: 66 Respirations: 17 Pulse Ox (%): 96 - Physical Exam General: Unresponsive HEENT: Atraumatic, PERRLA, EOMI Neck: Supple, JVD not distended Respiratory: Clear to auscultation bilaterally, Normal air movement Cardiovascular: Regular rate/rhythm, Normal S1 S2 Gastrointestinal: Normal bowel sounds, No tenderness Musculoskeletal: No tenderness Integumentary: No rashes Neurological: Normal speech, Normal tone, Normal affect Lymphatics: No axilla or inguinal lymphadenopathy - Studies Medications List Reviewed: Yes Assessment And Plan - Current Problems (Diagnosis) (1) End of life care Current Visit: Yes Status: Acute Plan: awaiting family to make there wishes known. Have discussed with them last night. Seem to be leaning towards DNR and withdrawal of care. However we blanca wait for them to declare that. 02/04 Have had a family meeting with the patient. Would like to take him off the vent. In case he does not pass. Will consult inpatient hospice. Thank you for allowing me to take part in his care. (2) Shock Current Visit: Yes Status: Acute Plan: patient on levophed, and amiodarone. Need cardioversion this morning. Poor prognosis 02/02 on levophed (3) Acute on chronic systolic heart failure Current Visit: No Status: Acute Plan: will give intermittent furosemide. While monitoring the kidney function Consult to Dr. Quijano. the last ef was 20% in2018 Will also monitor his troponins 01/28. He has been taken off lasix. Has been diurised over 30lbs since admission. Which would be approx 13-14 lts of fluid. This may have caused his hemithorax (4) COPD (chronic obstructive pulmonary disease) Current Visit: No Status: Chronic Plan: patient is not wheezing. Will continue breathing treatments. The patient is otherwise doing well. 01/21 Will start him on a low dose of steroids and breathing treatment Qualifiers: COPD type: COPD with acute lower respiratory infection Qualified Code(s): J44.0 - Chronic obstructive pulmonary disease with (acute) lower respiratory infection (5) Elevated troponin Current Visit: No Status: Acute Plan: will do serial troponins Consult to Dr. Quijano (6) Acute kidney injury Current Visit: No Status: Acute Plan: baseline creatine is approx 0.85. May be due to fluid overload. Will acess lasix daily if no improvement will consult Nephrololgy 3/3 creatine is stable. will continue monitoring. the patient (7) Respiratory failure Current Visit: Yes Status: Acute Plan: hemitorax. He is intubated on levophed. Was started on meropenem. Has a right hemithorax. Disussed the patient with Dr. Villavicencio. Qualifiers: Chronicity: acute (8) Delirium Current Visit: Yes Status: Resolved Plan: Patient has a history of alcoholism and drug abuse. Nurse reported that he has been drinking recently. Ammonia level was last reported as normal. Will recheck. Continue lactulose. Will consult Dr. Burns. Order an EEG, MRI Thiamine and folate. Discharge Plan: Home Plan to discharge in: 24 Hours - Code Status/Comfort Care Code Status Assessed: No Physician Review: Patient Assessed, Agree with Above Assessment and Plan Critical Care: No Time Spent Managing PTS Care (In Minutes): 80
[2022-02-04] MEDS: HYDROMORPHONE HCL 2 MG/ML inj IV PRN ×2 (17:13→20:00)
[2022-02-05] MEDS: LORazepam 2 MG/ML VIAL IV PRN (00:21)
[2022-02-05] MEDS: HYDROMORPHONE HCL 2 MG/ML inj IV PRN ×4 (00:21→16:41)
--- NOTE | 2022-02-05 03:28 | P.PN ---
Subjective Date of Service: 02/05/22 Primary Care Provider: Rhianna Chief Complaint: Respiratory failure, shock rapid A. fib Subjective: No new changes Physical Examination - Vital Signs Temperature: 97 F Blood Pressure: 120/61 Pulse: 64 Respirations: 64 Pulse Ox (%): 97 - Physical Exam General: Other (acutely ill appearing) HEENT: Atraumatic Neck: Supple Respiratory: Other (symmetric chest expansion) Cardiovascular: No rubs, No murmurs Gastrointestinal: Soft and benign, No guarding Musculoskeletal: No clubbing Integumentary: No warmth Neurological: Other (AMS) Urinary: Other (no bladder distention) External genitalia: Deferred Rectal: Deferred - Studies Medications List Reviewed: Yes Assessment And Plan - Plan # # ABDIAZIZ 2/2 ischemic ATN + CRS1 + urinary retention Baseline serum creatinine 0.8-1.0 as of 08/25/2021 Serum creatinine at 1.2 yesterday Keep MAP > 65 Cont torres Strict I/O Keep fluid balance net even per day Cont tube feed and water flush same rates Monitor renal panel # Hypokalemia KCl repletion prn # Acute respiratory failure 2/2 acute on chronic CHF +/- COPD exacerbation TTE on 01/18/2022 showed dilated LA & LV, LVEF 25-30% Chest CT on 01/2020 showed no evidence of pulmonary Htn Received steroids, inhalers, nebs, empiric abx Needs Lifevest Remains intubated # Shock MAP goal > 65 # Torsades, vtach Amio d/c'ed Monitor/replete Mg prn # Anemia Monitor H/H # Dispo Anticipate transition to comfort measures in the next 24 hrs Physician Review: Patient Assessed, Agree with Above Assessment and Plan
[2022-02-05] MEDS: LACTULOSE 20 GM/30 ML UCUP PO SCH (08:50)
[2022-02-05] MEDS: MIDODRINE HCL 5 MG TABLET PO SCH ×2 (08:50→13:58)
[2022-02-05] MEDS: SPIRONOLACTONE 25 MG TABLET PO SCH (08:50)
[2022-02-05] MEDS: FAMOTIDINE 20 MG/2 ML VIAL IV SCH (08:50)
[2022-02-05] MEDS: THIAMINE 200 MG/2 ML INJ IVP SCH (08:51)
[2022-02-05] MEDS: INSULIN GLARGINE 100 UNIT/ML SQ SCH (08:51)
--- NOTE | 2022-02-05 10:25 | P.PN ---
Subjective Date of Service: 02/05/22 Primary Care Provider: Rhianna Chief Complaint: Respiratory failure, shock rapid A. fib extubated. Patient spo2 fluctuates from 80-90 Review of Systems is unable to be obtained Physical Examination - Vital Signs Temperature: 97.4 F Blood Pressure: 138/70 Pulse: 79 Respirations: 11 Pulse Ox (%): 81 - Physical Exam General: Unresponsive HEENT: Atraumatic, PERRLA, EOMI Neck: Supple, JVD not distended Respiratory: Clear to auscultation bilaterally, Normal air movement Cardiovascular: Regular rate/rhythm, Normal S1 S2 Gastrointestinal: Normal bowel sounds, No tenderness Musculoskeletal: No tenderness Integumentary: No rashes Neurological: Normal speech, Normal tone, Normal affect Lymphatics: No axilla or inguinal lymphadenopathy - Studies Medications List Reviewed: Yes Assessment And Plan - Current Problems (Diagnosis) (1) End of life care Current Visit: Yes Status: Acute Plan: awaiting family to make there wishes known. Have discussed with them last night. Seem to be leaning towards DNR and withdrawal of care. However we blanca wait for them to declare that. 02/05 Patient is slowly getting weaker. Plans are for inpatient hospice with [facility] (2) Shock Current Visit: Yes Status: Acute Plan: patient on levophed, and amiodarone. Need cardioversion this morning. Poor prognosis 02/02 on levophed (3) Acute on chronic systolic heart failure Current Visit: No Status: Acute Plan: will give intermittent furosemide. While monitoring the kidney function Consult to Dr. Quijano. the last ef was 20% in2018 Will also monitor his troponins 01/28. He has been taken off lasix. Has been diurised over 30lbs since admission. Which would be approx 13-14 lts of fluid. This may have caused his hemithorax (4) COPD (chronic obstructive pulmonary disease) Current Visit: No Status: Chronic Plan: patient is not wheezing. Will continue breathing treatments. The patient is otherwise doing well. 01/21 Will start him on a low dose of steroids and breathing treatment Qualifiers: COPD type: COPD with acute lower respiratory infection Qualified Code(s): J44.0 - Chronic obstructive pulmonary disease with (acute) lower respiratory infection (5) Elevated troponin Current Visit: No Status: Acute Plan: will do serial troponins Consult to Dr. Quijano (6) Acute kidney injury Current Visit: No Status: Acute Plan: baseline creatine is approx 0.85. May be due to fluid overload. Will acess lasix daily if no improvement will consult Nephrololgy 3/3 creatine is stable. will continue monitoring. the patient (7) Respiratory failure Current Visit: Yes Status: Acute Plan: hemitorax. He is intubated on levophed. Was started on meropenem. Has a right hemithorax. Disussed the patient with Dr. Villavicencio. Qualifiers: Chronicity: acute (8) Delirium Current Visit: Yes Status: Resolved Plan: Patient has a history of alcoholism and drug abuse. Nurse reported that he has been drinking recently. Ammonia level was last reported as normal. Will recheck. Continue lactulose. Will consult Dr. Burns. Order an EEG, MRI Thiamine and folate. Discharge Plan: Home Plan to discharge in: 24 Hours - Code Status/Comfort Care Code Status Assessed: No Code Status: Do Not Attempt Resuscitat Physician Review: Patient Assessed, Agree with Above Assessment and Plan Critical Care: No Time Spent Managing PTS Care (In Minutes): 20
[2022-02-05 13:13] VITALS: O2SAT 88
--- NOTE | 2022-02-05 17:38 | P.DS ---
Admission Date: 01/17/22 Discharge Date: 02/05/22 Primary Care Provider: Rhianna Disposition: Reason for Admission: Respiratory failure, shock rapid A. fib - Problems (1) End of life care Current Visit: Yes Status: Acute (2) Shock Current Visit: Yes Status: Acute (3) Acute on chronic systolic heart failure Current Visit: No Status: Acute (4) COPD (chronic obstructive pulmonary disease) Current Visit: No Status: Chronic Qualifiers: COPD type: COPD with acute lower respiratory infection Qualified Code(s): J44.0 - Chronic obstructive pulmonary disease with (acute) lower respiratory infection (5) Elevated troponin Current Visit: No Status: Acute (6) Acute kidney injury Current Visit: No Status: Acute (7) Respiratory failure Current Visit: Yes Status: Acute Qualifiers: Chronicity: acute (8) Delirium Current Visit: Yes Status: Resolved Brief History of Present Illness: 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 He has a history of chf, copd and depression. The patient has been having swelling of his legs and increased and sob. The patient came in with sob. Xray bnp and troponin were elevated. The patient also had an elevation of his creatine. Hospital Course: Patient at approx 17:08 Patient admitted with heart failure. was initially doing well With diuresis. H owever he took a turn for worse. Need intubation and was moved the unit The patient was having repeate ventricular tachycardia. He required multiple codes and defibrillation. Several family meetings were held with the patients children and estranged . They first made him dnr. then decided on withdrawal of care. The did not want him to have a trach and peg. Did not feel this was a good qualilty of life. Thank you for allowing me to take part in his care. Vital Signs/Physical Exam: Temp Pulse Resp BP Pulse Ox 99.3 F 61 18 80/68 L 47 L 02/05/22 16:00 02/05/22 17:00 02/05/22 17:00 02/05/22 17:00 02/05/22 17:00 General: Other () Laboratory Data at Discharge: WBC 9.40 K/uL (4.3-10.9) D 01/31/22 05:05 Hgb 14.1 g/dL (13.6-17.9) 01/31/22 05:05 Hct 43.0 % (39.6-49.0) 01/31/22 05:05 Plt Count 44 K/uL (152-406) L* 01/31/22 05:05 PT 16.9 SECONDS (9.5-12.5) H 01/20/22 23:50 INR 1.46 01/20/22 23:50 APTT 33.6 SECONDS (24.3-36.9) 01/20/22 23:50 Sodium Cancelled 02/05/22 05:00 Potassium Cancelled 02/05/22 05:00 BUN Cancelled 02/05/22 05:00 Creatinine Cancelled 02/05/22 05:00 Glucose Cancelled 02/05/22 05:00 Phosphorus Cancelled 02/05/22 05:00 Magnesium 2.4 mg/dL (1.8-2.4) 02/02/22 06:37 Total Bilirubin 4.3 mg/dL (0.2-1.0) H 01/31/22 05:05 AST 70 U/L (15-37) H 01/31/22 05:05 ALT 91 U/L (12-78) H 01/31/22 05:05 Alkaline Phosphatase 83 U/L (45-117) 01/31/22 05:05 Triglycerides 58 mg/dL (<150) 01/18/22 07:36 Cholesterol 66 mg/dL (<200) 01/18/22 07:36 HDL Cholesterol 13 mg/dL (40-60) L 01/18/22 07:36 Cholesterol/HDL Ratio 5.08 01/18/22 07:36 Amylase 42 U/L (25-115) 01/20/22 23:50 Lipase 119 U/L (73-393) 01/20/22 23:50 Home Medications: Albuterol Sulfate [Proair Respiclick] 2 puff IH Q6HR PRN 01/17/22 Amoxicillin/Potassium Clav [Amox-Clav 875-125 mg Tablet] 1 tab PO Q12H 01/17/22 Spironolactone 25 mg PO BID 01/17/22 Aspirin 81 mg PO DAILY 01/23/22 Dapagliflozin Propanediol [Farxiga] 5 mg PO DAILY 01/23/22 Fluticasone [Flovent Hfa 110*] 1 puff IH Q6HP PRN 01/23/22 Folic Acid 1 mg PO DAILY 01/23/22 Furosemide 80 mg PO BID 01/23/22 Lactulose 20 gm PO DAILY 01/23/22 Lisinopril [Zestril] 5 mg PO BEDTIME 01/23/22 Metoprolol Succinate [Toprol Xl] 12.5 mg PO DAILY 01/23/22 Sertraline [Zoloft] 100 mg PO DAILY 01/23/22 Trazodone HCl 100 mg PO BEDTIME 01/23/22 Time spent managing pt's care (in minutes): 70
[2022-02-05 21:25] VITALS: BP 120/61; TEMP 97
== END 2022-02-05 17:08 | disposition expired | DRG 870 ==
LOC: ER 10:29 → ERHOLD 15:13 → 2ND 22:18 → 3RD-ICU 01-21 18:33
PROVIDERS: ADMIT Internal Medicine; ATTEND Internal Medicine
PROC: 02HV33Z Insertion of Infusion Device into Superior Vena Cava, Percutaneous Approach (ICD-10-PCS; 2022-01-21)
PROC: 5A1955Z Respiratory Ventilation, Greater than 96 Consecutive Hours (ICD-10-PCS; 2022-01-28)
PROC: 0BH17EZ Insertion of Endotracheal Airway into Trachea, Via Natural or Artificial Opening (ICD-10-PCS; 2022-01-28)
PROC: 5A2204Z Restoration of Cardiac Rhythm, Single (ICD-10-PCS; 2022-01-28)
PROC: 5A12012 Performance of Cardiac Output, Single, Manual (ICD-10-PCS; principal; 2022-01-29)
PROC: 5A12012 Performance of Cardiac Output, Single, Manual (ICD-10-PCS; 2022-01-30)
PROC: 5A2204Z Restoration of Cardiac Rhythm, Single (ICD-10-PCS; 2022-01-30)
DX: A41.9 Sepsis, unspecified organism (principal); J15.6 Pneumonia due to other Gram-negative bacteria; R65.21 Severe sepsis with septic shock; G93.41 Metabolic encephalopathy; J96.00 Acute respiratory failure, unspecified whether with hypoxia or hypercapnia; I50.23 Acute on chronic systolic (congestive) heart failure; N17.9 Acute kidney failure, unspecified; J44.0 Chronic obstructive pulmonary disease with (acute) lower respiratory infection; I47.2 Ventricular tachycardia; E87.0 Hyperosmolality and hypernatremia; I42.6 Alcoholic cardiomyopathy; F10.239 Alcohol dependence with withdrawal, unspecified; E87.3 Alkalosis; I13.0 Hypertensive heart and chronic kidney disease with heart failure and stage 1 through stage 4 chronic kidney disease, or unspecified chronic kidney disease; I24.8 Other forms of acute ischemic heart disease; E87.2 Acidosis; E44.1 Mild protein-calorie malnutrition; R77.8 Other specified abnormalities of plasma proteins; R41.0 Disorientation, unspecified; F32.A Depression, unspecified; I48.91 Unspecified atrial fibrillation; F19.11 Other psychoactive substance abuse, in remission; E87.6 Hypokalemia; D64.9 Anemia, unspecified; R01.1 Cardiac murmur, unspecified; I87.8 Other specified disorders of veins; E83.42 Hypomagnesemia; E83.39 Other disorders of phosphorus metabolism; K70.30 Alcoholic cirrhosis of liver without ascites; N18.30 Chronic kidney disease, stage 3 unspecified; D69.6 Thrombocytopenia, unspecified; Z68.28 Body mass index [BMI] 28.0-28.9, adult; I89.0 Lymphedema, not elsewhere classified; F17.210 Nicotine dependence, cigarettes, uncomplicated; Z66 Do not resuscitate; Z78.1 Physical restraint status; Z20.822 Contact with and (suspected) exposure to COVID-19
CPT/HCPCS: 0240U; 36415; 36430; 36569; 71045; 74018; 80048; 80053; 80061; 80069; 80076; 80202; 81003; 81015; 82140; 82150; 82248; 82550; 82570; 82805; 82947; 83605; 83690; 83735; 83880; 83935; 84100; 84132; 84145; 84156; 84300; 84443; 84484; 85025; 85610; 85730; 87040; 87070; 87086; 87088; 87205; 87449; 87633; 87899; 93005; 93306; 93971; 94002; 94003; 94640; 94660; 94760; 95816; 96365; 96375; 99285; J0153; J0171; J0282; J0330; J0692; J1100; J1120; J1170; J1630; J1815; J1940; J2185; J2270; J2704; J2920; J2930; J3010; J3370; J3411; J3475; J3486; J7030; J7040; J7050; J7060; J7605; J7799; P9047